=== PATIENT | female | born 1990 | race Hispanic/Latino ===

== ENCOUNTER 2021-12-20 18:18 | Emergency (ER) | payer BC ==
[2021-12-20] MEDS ORDERED: DOXYCYCLINE 100 MG CAP PO ONE (19:25)
--- NOTE | 2021-12-20 19:48 | ER ---
Nurse's Notes [facility] Name: Carlyn Rodas Age: 31 yrs Sex: Female : 1990 Arrival Date: 12/20/2021 Time: 18:22 Bed 12 Private MD: Diagnosis: Insect Bite - Cellulitis Presentation: 12/20 18:44 Chief complaint: Patient states: "I think I have several spider bites on Tuesday". pt aa5 c/o possible spider bite to left arm, right arm, and right leg. Coronavirus screen: At this time, the client does not indicate any symptoms associated with coronavirus-19. Ebola Screen: No symptoms or risks identified at this time. Initial Sepsis Screen: Does the patient meet any 2 criteria? No. Patient's initial sepsis screen is negative. Does the patient have a suspected source of infection? No. Patient's initial sepsis screen is negative. Risk Assessment: Do you want to hurt yourself or someone else? Patient reports no desire to harm self or others. Onset of symptoms was 2021. 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 - Social history:: Smoking status: Patient denies any tobacco usage or history of. Screenin:27 Abuse screen: Denies threats or abuse. Nutritional screening: No deficits noted. jb4 Tuberculosis screening: No symptoms or risk factors identified. Fall Risk None identified. Assessment: 19:27 General: Appears in no apparent distress. comfortable, Behavior is calm, cooperative, jb4 appropriate for age. Pain: Denies pain. Neuro: Level of Consciousness is awake, alert, obeys commands, Oriented to person, place, time, situation. Cardiovascular: Patient's skin is warm and dry. Respiratory: Airway is patent Respiratory effort is even, unlabored, Respiratory pattern is regular, symmetrical. GI: No signs and/or symptoms were reported involving the gastrointestinal system. : No signs and/or symptoms were reported regarding the genitourinary system. EENT: No signs and/or symptoms were reported regarding the EENT system. Derm: Skin is intact, Skin is pink, warm \\T\\ dry. Wound noted dorsal aspect of proximal phalanx of right little finger, palmar aspect of right forearm, left elbow and right Achilles. Musculoskeletal: Circulation, motion, and sensation intact. Range of motion: intact in all extremities. 19:58 Reassessment: Patient appears in no apparent distress at this time. Patient and/or jb4 family updated on plan of care and expected duration. Pain level reassessed. Patient is alert, oriented x 3, equal unlabored respirations, skin warm/dry/pink. Vital Signs: 18:44 BP 117 / 71; Pulse 83; Resp 18 S; Temp 98.0(O); Pulse Ox 100% on R/A; Weight 74.84 kg aa5 (R); Height 4 ft. 11 in. (149.86 cm) (R); 18:44 Body Mass Index 33.33 (74.84 kg, 149.86 cm) aa5 ED Course: 18:22 Patient arrived in ED. as 18:44 Arm band placed on. aa5 18:45 Triage completed. 5 18:54 Akira Clark PA is PHCP. [facility] 18:54 Jorge Carlton MD is Attending Physician. [facility] 19:25 Yordy Conde, RN is Primary Nurse. jb4 19:27 Patient has correct armband on for positive identification. Bed in low position. Call jb4 light in reach. Side rails up X 1. 19:59 No provider procedures requiring assistance completed. Patient did not have IV access jb4 during this emergency room visit. Administered Medications: 19:25 Drug: Doxycycline 100 mg Route: PO; jb4 19:58 Follow up: Response: No adverse reaction jb4 Outcome: 19:48 Discharge ordered by MD. [facility] 19:59 Discharged to home ambulatory. jb4 19:59 Condition: stable 19:59 Discharge instructions given to patient, Instructed on discharge instructions, follow up and referral plans. no drinking with medication, Demonstrated understanding of instructions, follow-up care, medications, Prescriptions given X 2. 19:59 Patient left the ED. jb Signatures: Akira Clark PA PA Carlotta Rodrigues Audri RN RN aa [place], Yordy, RN RN jb4
--- NOTE | 2021-12-20 19:49 | EDPHYS ---
Physician Documentation [facility] Name: Carlyn Rodas Age: 31 yrs Sex: Female : 1990 Arrival Date: 12/20/2021 Time: 18:22 Bed 12 Private MD: ED Physician Jorge Carlton HPI: 12/20 19:12 This 31 yrs old Female presents to ER via Ambulatory with complaints of Insect jmm Bite - spider. 19:12 Onset: The symptoms/episode began/occurred gradually. Possible cause(s): unknown. jmm Associated signs and symptoms: Pertinent negatives: fever. Modifying factors: the symptoms are alleviated by nothing, the symptoms are aggravated by nothing. patient complains of multiple bites to her right leg and both arms. Denies fever. Complains of pain. Denies purulent drainage. . 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 - Social history:: Smoking status: Patient denies any tobacco usage or history of. ROS: 19:12 Constitutional: Negative for fever, chills, and weight loss, Cardiovascular: Negative jmm for chest pain, palpitations, and edema, Respiratory: Negative for shortness of breath, cough, wheezing, and pleuritic chest pain. Exam: 21:32 Constitutional: This is a well developed, well nourished patient who is awake, alert, jmm and in no acute distress. Head/Face: atraumatic. Eyes: EOMI, no conjunctival erythema appreciated ENT: Moist Mucus Membranes Neck: Trachea midline, Supple Chest/axilla: Normal chest wall appearance and motion. Cardiovascular: Regular rate and rhythm. No edema appreciated Respiratory: Normal respirations, no respiratory distress appreciated Abdomen/GI: Non distended, soft Back: Normal ROM 21:32 MS/ Extremity: Moves all extremities, no obvious deformities appreciated, no edema noted to the lower extremities Neuro: Awake and alert Psych: Behavior is normal, Mood is normal, Patient is cooperative and pleasant 21:32 Skin: Bites noted to the left and right forearm, insect bite noted to the right lower extremity, not tender to palpation, nonfluctuant, no purulent drainage. Vital Signs: 18:44 BP 117 / 71; Pulse 83; Resp 18 S; Temp 98.0(O); Pulse Ox 100% on R/A; Weight 74.84 kg aa5 (R); Height 4 ft. 11 in. (149.86 cm) (R); 18:44 Body Mass Index 33.33 (74.84 kg, 149.86 cm) aa5 MDM: 19:12 Patient medically screened. [facility] 19:47 Data reviewed: vital signs, nurses notes. Counseling: I had a detailed discussion with [facility] the patient and/or guardian regarding: the historical points, exam findings, and any diagnostic results supporting the discharge/admit diagnosis, the need for outpatient follow up, to return to the emergency department if symptoms worsen or persist or if there are any questions or concerns that arise at home. ED course: Patient is alert and non toxic in appearance in the ED. Advised to follow up with pcp and otherwise given strict return precautions. Patient understood and agrees with the plan of care. . Administered Medications: 19:25 Drug: Doxycycline 100 mg Route: PO; jb 19:58 Follow up: Response: No adverse reaction [facility] Disposition Summary: 12/20/21 19:48 Discharge Ordered Location: Home [facility] Condition: Stable [facility] Diagnosis - Insect Bite - Cellulitis [facility] Followup: [facility] - With: Private Physician - When: 2 - 3 days - Reason: Recheck today's complaints, Continuance of care, Re-evaluation by your physician Discharge Instructions: - Discharge Summary Sheet [facility] - Insect Bite, Adult [facility] Forms: - Medication Reconciliation Form [facility] - Thank You Letter [facility] - Antibiotic Education [facility] - Prescription Opioid Use [facility] Prescriptions: - Hydroxyzine HCl 25 mg Oral Tablet - take 1 tablet by ORAL route every 6 hours As needed; 30 tablet; Refills: 0, [facility] Product Selection Permitted - Doxycycline Hyclate 100 mg Oral Tablet - take 1 tablet by ORAL route every 12 hours; 20 tablet; Refills: 0, Product [facility] Selection Permitted Signatures: Akira Clark PA PA jmm Calderon, Audri, RN RN aa5 Yordy Conde RN RN jb4
[2021-12-20 20:30] VITALS: BP 117/71; TEMP 98; O2SAT 100
== END 2021-12-20 19:59 | disposition home or self-care (01) ==
LOC: ER 18:18
DX: L03.115 Cellulitis of right lower limb (principal); S40.862A Insect bite (nonvenomous) of left upper arm, initial encounter; S40.861A Insect bite (nonvenomous) of right upper arm, initial encounter
CPT/HCPCS: 99283

== ENCOUNTER 2021-12-21 19:50 | Emergency (ER) | payer BC ==
[2021-12-21] MEDS ORDERED: ONDANSETRON 4 MG/2 ML VIAL ONE (21:12)
[2021-12-21] MEDS ORDERED: FAMOTIDINE 20 MG/2 ML VIAL IV ONE (21:12)
[2021-12-21] MEDS ORDERED: NA CHLORIDE 0.9% 1,000 ML ONE (21:12)
[2021-12-21 21:19] LABS: Urine Blood 3+ (Negative); Urine Glucose Negative (Negative); Urine Protein 1+ (Negative); Urine Specific Gravity >=1.030 (1.005-1.030)
[2021-12-21 21:30] LABS: Absolute Lymphocytes (CBC) 1.9 K/uL (0.7-4.9); Hematocrit 45.9 % (36.0-45.0); Lymphocytes % 17.5 % (15.3-44.8); MPV 7.5 fL (7.6-11.3); RBC Red Blood Cell Count 5.52 M/uL (3.86-4.86)
[2021-12-21 21:50] LABS: ALT/SGPT 26 U/L (12-78); AST/SGOT 12 U/L (15-37); Albumin 3.2 g/dL (3.4-5.0); Alkaline Phosphatase 96 U/L (45-117); BUN Blood Urea Nitrogen 11 mg/dL (7-18); Bicarbonate 27 mmol/L (21-32); Bilirubin Total 0.4 mg/dL (0.2-1.0); Glucose Level 109 mg/dL (74-106); Lipase 150 U/L (73-393); Potassium 4.2 mmol/L (3.5-5.1); Protein, Total 6.5 g/dL (6.4-8.2); Sodium Level 138 mmol/L (136-145)
[2021-12-21 22:05] LABS: SARS-COV-2 RT PCR NEGATIVE (NEGATIVE)
--- NOTE | 2021-12-21 23:35 | EDPHYS ---
Physician Documentation [facility] Name: Carlyn Rodas Age: 31 yrs Sex: Female : 1990 Arrival Date: 12/21/2021 Time: 19:51 Bed 16 Private MD: ED Physician Schuyler Barajas HPI: 12/21 20:41 This 31 yrs old Female presents to ER via Ambulatory with complaints of jmm Vomiting, Weakness. 20:41 The patient presents to the emergency department with nausea, vomiting, abdominal pain. jmm Onset: The symptoms/episode began/occurred acutely, today. Possible causes: unknown. The symptoms are aggravated by nothing. The symptoms are alleviated by nothing. Associated signs and symptoms: Pertinent positives: Headache. Historical: - Allergies: 20:17 No Known Allergies; al4 - Immunization history:: Adult Immunizations up to date. - Social history:: Smoking status: Patient denies any tobacco usage or history of. ROS: 20:41 Constitutional: Negative for fever, chills, and weight loss, Cardiovascular: Negative jmm for chest pain, palpitations, and edema, Respiratory: Negative for shortness of breath, cough, wheezing, and pleuritic chest pain. 20:41 Abdomen/GI: Positive for abdominal pain, nausea and vomiting. 20:41 Neuro: Positive for headache. 20:41 All other systems are negative. Exam: 20:41 Constitutional: This is a well developed, well nourished patient who is awake, alert, jmm and in no acute distress. Head/Face: atraumatic. Eyes: EOMI, no conjunctival erythema appreciated ENT: Moist Mucus Membranes Neck: Trachea midline, Supple Chest/axilla: Normal chest wall appearance and motion. Cardiovascular: Regular rate and rhythm. No edema appreciated Respiratory: Normal respirations, no respiratory distress appreciated 20:41 Back: Normal ROM Skin: General appearance color normal MS/ Extremity: Moves all extremities, no obvious deformities appreciated, no edema noted to the lower extremities Neuro: Awake and alert Psych: Behavior is normal, Mood is normal, Patient is cooperative and pleasant 20:41 Abdomen/GI: Inspection: abdomen appears normal, Bowel sounds: normal, Palpation: soft, mild abdominal tenderness, in all quadrants. Vital Signs: 20:11 BP 105 / 79; Pulse 77; Resp 18; Temp 98.4; Pulse Ox 99% ; Weight 78.93 kg; Height 4 ft. al4 11 in. (149.86 cm); Pain 6/10; 21:28 BP 119 / 70; Pulse 85; Resp 17; Pulse Ox 99% on R/A; ld1 22:47 BP 124 / 77; Pulse 81; Resp 18; Pulse Ox 99% on R/A; ld1 23:33 BP 131 / 70; Pulse 80; Resp 18; Pulse Ox 100% on R/A; ld1 20:11 Body Mass Index 35.14 (78.93 kg, 149.86 cm) al4 MDM: 20:41 Patient medically screened. kathy 23:33 Data reviewed: vital signs, nurses notes. Counseling: I had a detailed discussion with felicita the patient and/or guardian regarding: the historical points, exam findings, and any diagnostic results supporting the discharge/admit diagnosis, lab results, radiology results, the need for outpatient follow up, to return to the emergency department if symptoms worsen or persist or if there are any questions or concerns that arise at home. ED course: Patient is alert and nontoxic in appearance NAD. Imaging studies are negative. Patient states feeling much better. Patient understood agrees plan of care.. 12/21 21:03 Order name: CBC with Diff; Complete Time: 21:35 [facility] 12/21 21:03 Order name: CMP; Complete Time: 21:59 [facility] 12/21 21:03 Order name: Lipase; Complete Time: 21:59 [facility] 12/21 21:04 Order name: COVID-19/FLU A+B (Document "Date of Onset" if Symptomatic); Complete Time: [facility] 22:14 12/21 21:04 Order name: Strep; Complete Time: 21:46 [facility] 12/21 21:03 Order name: IV Saline Lock; Complete Time: 21:28 [facility] 12/21 21:05 Order name: CT Head Brain wo Cont [facility] 12/21 21:06 Order name: CT Abd/Pelvis - IV Contrast Only [facility] 12/21 21:19 Order name: Urine Dipstick-Ancillary; Complete Time: 21:22 [facility] 12/21 21:48 Order name: Throat Culture [facility] 12/21 21:03 Order name: Labs collected and sent; Complete Time: 21:28 [facility] 12/21 21:03 Order name: Urine Dipstick-Ancillary (obtain specimen); Complete Time: 21:19 [facility] 12/21 21:03 Order name: Urine Test (obtain specimen); Complete Time: 21:19 [facility] Administered Medications: 21: Drug: NS 0.9% 1000 ml Route: IV; Rate: 1 bolus; Site: right antecubital; ld1 21:28 Drug: Pepcid (famotidine) 20 mg Route: IVP; Site: right antecubital; ld1 21:28 Drug: Zofran (Ondansetron) 4 mg Route: IVP; Site: right antecubital; ld1 Disposition Summary: 12/21/21 23:34 Discharge Ordered Location: Home [facility] Condition: Stable [facility] Diagnosis - Vomiting jm - Abdominal pain, unspecified [facility] - Headache [facility] Followup: [facility] - With: Private Physician - When: 2 - 3 days - Reason: Recheck today's complaints, Continuance of care, Re-evaluation by your physician Followup: [facility] - With: Sim Grant MD - When: 2 - 3 days - Reason: Recheck today's complaints, Continuance of care, Re-evaluation by your physician Discharge Instructions: - Discharge Summary Sheet jmm - Abdominal Pain, Adult jmm - General Headache Without Cause jmm - Vomiting, Adult [facility] Forms: - Medication Reconciliation Form [facility] - Thank You Letter [facility] - Antibiotic Education [facility] - Prescription Opioid Use [facility] Prescriptions: - ondansetron 4 mg Oral tablet,disintegrating - place 1 tablet by TRANSLINGUAL route every 4-6 hours; 20 tablet; Refills: 0, [facility] Product Selection Permitted - Pepcid 20 mg Oral Tablet - take 1 tablet by ORAL route every 12 hours for 30 days; 60 tablet; Refills: 0, [facility] Product Selection Permitted Signatures: Dispatcher [employer] Schuyler Meraz MD MD cha Mickail, Joel, PA PA [facility] Beryl Vidal RN RN ld1 Nathen Nielsen4
--- NOTE | 2021-12-21 23:35 | ER ---
Nurse's Notes [facility] Name: Carlyn Rodas Age: 31 yrs Sex: Female : 1990 Arrival Date: 12/21/2021 Time: 19:51 Bed 16 Private MD: Diagnosis: Vomiting;Abdominal pain, unspecified;Headache Presentation: 12/21 20:11 Chief complaint: Patient states: fatigue and vomiting x 2 at 1400. denies fever, sob, al4 diarrhea. reports receiving 1 injection from [facility] that were sent by mother - doesn't know what it is or what its for. Coronavirus screen: Vaccine status: Patient reports receiving the 2nd dose of the covid vaccine. Ebola Screen: No symptoms or risks identified at this time. Initial Sepsis Screen: Does the patient meet any 2 criteria? No. Patient's initial sepsis screen is negative. Does the patient have a suspected source of infection? No. Patient's initial sepsis screen is negative. Risk Assessment: Do you want to hurt yourself or someone else? Patient reports no desire to harm self or others. Onset of symptoms was December 21, 2021. 20:11 Method Of Arrival: Ambulatory al4 20:11 Acuity: FERNANDO 3 al4 Triage Assessment: 20:17 General: Appears in no apparent distress. comfortable, Behavior is calm, cooperative. al4 Pain: Complains of pain in head Quality of pain is described as throbbing. Neuro: Level of Consciousness is awake, alert, obeys commands, Oriented to person, place, time, situation. Cardiovascular: Patient's skin is warm and dry. Respiratory: Airway is patent Respiratory effort is unlabored. GI: Reports nausea. Musculoskeletal: Circulation, motion, and sensation intact. Historical: - Allergies: 20:17 No Known Allergies; al4 - Immunization history:: Adult Immunizations up to date. - Social history:: Smoking status: Patient denies any tobacco usage or history of. Screenin:28 Abuse screen: Denies threats or abuse. Denies injuries from another. Nutritional ld1 screening: No deficits noted. Tuberculosis screening: No symptoms or risk factors identified. Fall Risk None identified. Assessment: 21:28 General: Appears in no apparent distress. comfortable, Behavior is calm, cooperative, ld1 appropriate for age. Pain: Complains of pain in abdomen Pain does not radiate. Pain currently is 8 out of 10 on a pain scale. Neuro: Level of Consciousness is awake, alert, obeys commands, Oriented to person, place, time, situation. Cardiovascular: Capillary refill < 3 seconds Patient's skin is warm and dry. Respiratory: Airway is patent Respiratory effort is even, unlabored. GI: Abdomen is round non-distended, Reports lower abdominal pain, upper abdominal pain, nausea. : No signs and/or symptoms were reported regarding the genitourinary system. EENT: No signs and/or symptoms were reported regarding the EENT system. Derm: No signs and/or symptoms reported regarding the dermatologic system. Musculoskeletal: No signs and/or symptoms reported regarding the musculoskeletal system. 22:47 Reassessment: Patient appears in no apparent distress at this time. No changes from ld1 previously documented assessment. Patient and/or family updated on plan of care and expected duration. Pain level reassessed. 23:33 Reassessment: Patient appears in no apparent distress at this time. Patient is alert, ld1 oriented x 3, equal unlabored respirations, skin warm/dry/pink. Vital Signs: 20:11 BP 105 / 79; Pulse 77; Resp 18; Temp 98.4; Pulse Ox 99% ; Weight 78.93 kg; Height 4 ft. al4 11 in. (149.86 cm); Pain 6/10; 21:28 BP 119 / 70; Pulse 85; Resp 17; Pulse Ox 99% on R/A; ld1 22:47 BP 124 / 77; Pulse 81; Resp 18; Pulse Ox 99% on R/A; ld1 23:33 BP 131 / 70; Pulse 80; Resp 18; Pulse Ox 100% on R/A; ld1 20:11 Body Mass Index 35.14 (78.93 kg, 149.86 cm) al4 ED Course: 19:51 Patient arrived in ED. jj6 20:17 Triage completed. al4 20:17 Arm band placed on right wrist. al4 20:34 Beryl Vidal, HERMILO is Primary Nurse. ld1 20:37 Akira Clark PA is PHCP. jm 20:37 Schuyler Barajas MD is Attending Physician. jm 21:19 COVID-19/FLU A+B (Document "Date of Onset" if Symptomatic) Sent. ld1 21:19 Strep Sent. ld1 21:28 Patient has correct armband on for positive identification. Placed in gown. Bed in low ld1 position. Call light in reach. Side rails up X2. manager monitoring on. Pulse ox on. NIBP on. Door closed. Noise minimized. Warm blanket given. 21:28 Strep Sent. ld1 21:28 COVID-19/FLU A+B (Document "Date of Onset" if Symptomatic) Sent. ld1 21:28 No provider procedures requiring assistance completed. Inserted saline lock: 20 gauge ld1 in right antecubital area, using aseptic technique. Blood collected. 22:39 CT Head Brain wo Cont In Process Unspecified. EDMS 22:39 CT Abd/Pelvis - IV Contrast Only In Process Unspecified. EDMS 23:40 Sim Grant MD is Referral Physician. m 23:48 IV discontinued, intact, bleeding controlled, No redness/swelling at site. ld1 Administered Medications: 21:28 Drug: NS 0.9% 1000 ml Route: IV; Rate: 1 bolus; Site: right antecubital; ld1 21:28 Drug: Pepcid (famotidine) 20 mg Route: IVP; Site: right antecubital; ld1 21:28 Drug: Zofran (Ondansetron) 4 mg Route: IVP; Site: right antecubital; ld1 Outcome: 23:34 Discharge ordered by . [facility] 23:48 Discharged to home ambulatory. ld1 23:48 Condition: stable 23:48 Discharge instructions given to patient, Instructed on discharge instructions, follow up and referral plans. medication usage, Demonstrated understanding of instructions, follow-up care, medications, Prescriptions given X 2. 23:48 Patient left the ED. ld1 Signatures: Dispatcher [employer] EDMS Akira Clark PA PA jmm Dibbern, Lauren, HERMILO RN ld1 Sherry Ty [email or web address] Nathen Nielsen
[2021-12-22 00:05] VITALS: TEMP 98.4
[2021-12-22 00:09] VITALS: BP 131/70; O2SAT 100
--- NOTE | 2021-12-22 20:16 | RAD REPORT ---
EXAM DESCRIPTION: CT HEAD WITHOUT IV CONTRAST CLINICAL HISTORY: Headache, sudden, severe. TECHNIQUE: Noncontrast CT through the head was performed. Axial, coronal, and sagittal reconstructio ns were created and sent to PACS. This exam was performed according to our departmental dose-optimiza tion program which includes use of Automated Exposure Control, adjustment of the mA and/or kV accordi ng to patient size and/or use of iterative reconstruction technique. COMPARISON: None. FINDINGS: The brain parenchyma appears unremarkable. There is no intra-axial or extra-axial bleed se en. There is no mass or mass effect. The ventricles are unremarkable. The orbital contents appear unr emarkable. The visualized paranasal sinuses and mastoid air cells are patent. No acute fracture is identified. IMPRESSION: No acute intracranial abnormality identified. Electronically signed by: Geovanna Azar MD 12/21/2021 10:51 PM CDT Due to temporary technical issues with the PACS/Fluency reporting system, reports are being signed by the in house radiologists without review as a courtesy to insure prompt reporting. The interpreting radiologist is fully responsible for the content of the report.
--- NOTE | 2021-12-22 20:18 | RAD REPORT ---
EXAM DESCRIPTION: Abdomen Pelvis W Contrast RadLex: CT ABDOMEN PELVIS WITH IV CONTRAST CLINICAL HISTORY: Epigastric pain. Fatigue and vomiting. COMPARISON: None. TECHNIQUE: CT of the abdomen and pelvis was performed following intravenous administration of iodina jeannie contrast. Arterial phase images through the abdomen, and portal venous phase images through the a bdomen and pelvis were obtained. Oral contrast was not administered. Axial, coronal, and sagittal sof t tissue window reconstructions were created and sent to PACS. This exam was performed according to our departmental dose-optimization program, which includes autom ated exposure control, adjustment of the mA and/or kV according to patient size and/or use of iterati ve reconstruction technique. FINDINGS: Thoracic: No significant abnormality. Hepatobiliary: No concerning hepatic lesion identified. The portal veins are patent. The gallbladder is unremarkable. No biliary ductal dilatation. Pancreas: Unremarkable. Spleen: Unremarkable. Gastrointestinal: No evidence of bowel obstruction or perienteric inflammation. The appendix is mary l. Adrenals: No abnormality identified in either adrenal gland. Renal: No concerning parenchymal abnormality in either kidney. No hydronephrosis or urolithiasis. Bladder/Reproductive: Unremarkable appearance of the urinary bladder by CT technique. Unremarkable CT appearance of the uterus and ovaries. Vascular/Lymphatics: No lymphadenopathy identified by CT size criteria. Abdominal aorta is normal in caliber. Musculoskeletal: No concerning osseous lesion identified. Fluid / peritoneum: No significant free fluid. No free intraperitoneal air identified. IMPRESSION No acute abnormality identified in the abdomen or pelvis by CT. Electronically signed by: Geovanna Azar MD 12/21/2021 10:55 PM CDT Due to temporary technical issues with the PACS/Fluency reporting system, reports are being signed by the in house radiologists without review as a courtesy to insure prompt reporting. The interpreting radiologist is fully responsible for the content of the report.
== END 2021-12-21 23:48 | disposition home or self-care (01) ==
LOC: ER 19:50
DX: R11.2 Nausea with vomiting, unspecified (principal); R10.9 Unspecified abdominal pain; R51.9 Headache, unspecified; Z20.822 Contact with and (suspected) exposure to COVID-19
CPT/HCPCS: 87070; 85025; 36415; 87081; 81003; 83690; 80053; 0240U; 70450; 74177; Q9967; J7030; J2405; J3490; 96374; 96375; 99284

== ENCOUNTER 2022-03-14 15:04 | Emergency (ER) | payer BC ==
[2022-03-14 16:20] LABS: Urine Blood 3+ (Negative); Urine Glucose Negative (Negative); Urine Protein 2+ (Negative); Urine Specific Gravity >=1.030 (1.005-1.030); Urine pH 6.5 (5.0-7.0)
[2022-03-14 16:38] LABS: Urine Bacteria >50 /HPF (<20); Urine RBC >50 /HPF (None Seen)
[2022-03-14] MEDS ORDERED: CEFTRIAXONE 1000 MG/VIAL ONE (18:15)
[2022-03-14] MEDS ORDERED: AZITHROMYCIN 250 MG TAB ONE (18:15)
[2022-03-14] MEDS ORDERED: WATER FOR INJ,STERILE 10 ML ONE (18:18)
--- NOTE | 2022-03-14 18:18 | ER ---
Nurse's Notes [facility] Name: Carlyn Rodas Age: 31 yrs Sex: Female : 1990 Arrival Date: 03/14/2022 Time: 15:05 Bed 8 Private MD: Diagnosis: UTI/ Urinary tract infection, site not specified Presentation: 03/14 15:30 Chief complaint: Patient states: she was treated for a bacteria in her vagina at a [address] patient states she was then placed on an antibiotic. patient states she completed the antibiotics. Patient then states she continued to have sex with her boyfriend after she completed the antibiotics, but now she reports having the same symptoms again. Patient reports having a throbbing feeling on the outside of her vagina, and is having a difficult time producing urine. Coronavirus screen: At this time, the client does not indicate any symptoms associated with coronavirus-19. Ebola Screen: No symptoms or risks identified at this time. Initial Sepsis Screen: Does the patient meet any 2 criteria? No. Patient's initial sepsis screen is negative. Does the patient have a suspected source of infection? No. Patient's initial sepsis screen is negative. Risk Assessment: Do you want to hurt yourself or someone else? Patient reports no desire to harm self or others. Onset of symptoms was March 14, 2022. 15:30 Method Of Arrival: Ambulatory ap3 15:30 Acuity: FERNANDO 3 ap3 Triage Assessment: 15:35 General: Appears uncomfortable, Behavior is calm, cooperative. Pain: Complains of pain ap3 in vaginal area Pain began gradually. Neuro: Level of Consciousness is awake, alert, obeys commands, Oriented to person, place, time, situation. Cardiovascular: Patient's skin is warm and dry. Respiratory: Airway is patent Respiratory effort is even, unlabored. : Reports inability to void, urgency. 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 - Social history:: Smoking status: Patient denies any tobacco usage or history of. Screenin:36 Abuse screen: Denies threats or abuse. Nutritional screening: No deficits noted. bm7 Tuberculosis screening: No symptoms or risk factors identified. Fall Risk None identified. Assessment: 16:36 Reassessment: Patient is alert, oriented x 3, equal unlabored respirations, skin bm7 warm/dry/pink. General: Appears in no apparent distress. comfortable, Behavior is calm, cooperative. Pain: Complains of pain in right lower quadrant and left lower quadrant Pain does not radiate. Pain currently is 2 out of 10 on a pain scale. Neuro: Level of Consciousness is awake, alert, obeys commands, Oriented to person, place, time, situation. Cardiovascular: No deficits noted. Respiratory: No deficits noted. GI: No signs and/or symptoms were reported involving the gastrointestinal system. : Genitalia appear normal Reports burning with urination, cramping, urgency, urinary frequency, pt states she has had one partner x 1 year. EENT: No deficits noted. No signs and/or symptoms were reported regarding the EENT system. Derm: No deficits noted. No signs and/or symptoms reported regarding the dermatologic system. Musculoskeletal: No deficits noted. No signs and/or symptoms reported regarding the musculoskeletal system. 17:17 Reassessment: Patient and/or family updated on plan of care and expected duration. Pain bm7 level reassessed. Patient is alert, oriented x 3, equal unlabored respirations, skin warm/dry/pink. Vital Signs: 15:30 BP 117 / 76; Pulse 86; Resp 17; Temp 97.2; Pulse Ox 100% ; Weight 78.93 kg; Height 4 ap3 ft. 11 in. (149.86 cm); Pain 7/10; 16:49 BP 120 / 77; Pulse 80; Resp 16; Pulse Ox 100% on R/A; bm7 18:18 BP 120 / 77; Pulse 78; Resp 16; Pulse Ox 99% on R/A; bm7 15:30 Body Mass Index 35.14 (78.93 kg, 149.86 cm) ap3 ED Course: 15:05 Patient arrived in ED. as 15:34 Triage completed. ap3 15:36 Arm band placed on left wrist. ap3 15:40 Akira Clark PA is PHCP. felicita 15:40 Tara Curiel is Attending Physician. felicita 16:13 Julieth Bird, RN is Primary Nurse. bm7 16:36 No apparent distress. Awaiting disposition. bm7 16:36 Patient has correct armband on for positive identification. Placed in gown. Bed in low bm7 position. Pulse ox on. NIBP on. Warm blanket given. Elevated pelvis. 16:36 Assist provider with pelvic exam: Set up pelvic tray. Performed by Akira SARABIA 7 Specimens sent to lab. Patient tolerated well. Wet prep swab sent to lab. 17:17 Awaiting: ultrasound. bm7 18:05 Transvaginal Study Probe In Process Unspecified. EDMS Administered Medications: 18:17 Drug: Rocephin (cefTRIAXone) 1 grams Route: IM; Site: right gluteus; bm7 18:33 Follow up: Response: No adverse reaction bm7 18:17 Drug: AZITHromycin 1 grams Route: PO; bm7 18:33 Follow up: Response: No adverse reaction bm7 Medication: 16:36 VIS not applicable for this client. bm7 Outcome: 18:17 Discharge ordered by . felicita 18:33 Patient left the ED. 7 Addendum: 03/17/2022 16:14 Addendum: Culture Results: Prescription called-in to pharmacy of choice. called in b d augmentin 875 to [facility]. spoke with pt. pt given result by Dr Barajas. Signatures: Dispatcher [employer] EDMS Shama Menchaca Joel, PA PA jmm Martinez, Amelia as Prokisch, Amanda RN RN ap3 Julieth Bird, RN RN 7
--- NOTE | 2022-03-14 18:18 | EDPHYS ---
Physician Documentation [facility] Name: Carlyn Rodas Age: 31 yrs Sex: Female : 1990 Arrival Date: 03/14/2022 Time: 15:05 Bed 8 Private MD: ED Physician Tara Curiel HPI: 03/14 16:21 This 31 yrs old Female presents to ER via Ambulatory with complaints of Pelvic jmm Pain, Urinary Problem, Skin Sore(s). 16:21 The patient presents with pelvic pain. Onset: The symptoms/episode began/occurred jmm gradually. Modifying factors: The symptoms are alleviated by nothing, the symptoms are aggravated by nothing. Associated signs and symptoms: Pertinent positives: dysuria. This is a 31-year-old female with no chronic medical conditions that presents to the emergency department with complaints of pelvic pain and fullness to her bladder region. Denies fever or chills. Patient was released recently diagnosed with bacterial vaginosis and finished a 7-day course of Flagyl denies fever or vomiting. Denies vaginal bleeding. 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 - Social history:: Smoking status: Patient denies any tobacco usage or history of. ROS: 16:21 Constitutional: Negative for fever, chills, and weight loss, Cardiovascular: Negative jmm for chest pain, palpitations, and edema, Respiratory: Negative for shortness of breath, cough, wheezing, and pleuritic chest pain. 16:21 : Positive for urinary symptoms, pelvic pain. 16:21 All other systems are negative. Exam: 16:21 Constitutional: This is a well developed, well nourished patient who is awake, alert, jmm and in no acute distress. Head/Face: atraumatic. Eyes: EOMI, no conjunctival erythema appreciated ENT: Moist Mucus Membranes Neck: Trachea midline, Supple Chest/axilla: Normal chest wall appearance and motion. Cardiovascular: Regular rate and rhythm. No edema appreciated Respiratory: Normal respirations, no respiratory distress appreciated Abdomen/GI: Non distended Back: Normal ROM Skin: General appearance color normal MS/ Extremity: Moves all extremities, no obvious deformities appreciated, no edema noted to the lower extremities Neuro: Awake and alert Psych: Behavior is normal, Mood is normal, Patient is cooperative and pleasant 16:21 : Pelvic Exam: External exam: is normal, Speculum exam: cervicitis present, bimanual exam reveals normal findings. Vital Signs: 15:30 BP 117 / 76; Pulse 86; Resp 17; Temp 97.2; Pulse Ox 100% ; Weight 78.93 kg; Height 4 ap3 ft. 11 in. (149.86 cm); Pain 7/10; 16:49 BP 120 / 77; Pulse 80; Resp 16; Pulse Ox 100% on R/A; bm7 18:18 BP 120 / 77; Pulse 78; Resp 16; Pulse Ox 99% on R/A; bm7 15:30 Body Mass Index 35.14 (78.93 kg, 149.86 cm) ap3 MDM: 16:28 Patient medically screened. [facility] 18:17 Data reviewed: vital signs, nurses notes. Counseling: I had a detailed discussion with felicita the patient and/or guardian regarding: the historical points, exam findings, and any diagnostic results supporting the discharge/admit diagnosis, lab results, the need for outpatient follow up, to return to the emergency department if symptoms worsen or persist or if there are any questions or concerns that arise at home. 03/14 16:20 Order name: Urine Microscopic Only; Complete Time: 16:41 [facility] 03/14 16:20 Order name: Urine Culture [facility] 03/14 16:20 Order name: Urine Dipstick-Ancillary; Complete Time: 16:41 EDMT 03/14 16:26 Order name: Urine --Ancillary (enter results); Complete Time: 16:43 eb 03/14 16:38 Order name: GC (GONORR/CHLAMYDIA) Probe [facility] 03/14 16:38 Order name: Wet Prep; Complete Time: 17:39 [facility] 03/14 18:05 Order name: Transvaginal Study Probe; Complete Time: 18:28 EDMS Administered Medications: 18:17 Drug: Rocephin (cefTRIAXone) 1 grams Route: IM; Site: right gluteus; 7 18:33 Follow up: Response: No adverse reaction bm7 18:17 Drug: AZITHromycin 1 grams Route: PO; bm7 18:33 Follow up: Response: No adverse reaction bm7 Disposition Summary: 03/14/22 18:17 Discharge Ordered Location: Home [facility] Condition: Stable [facility] Diagnosis - UTI/ Urinary tract infection, site not specified [facility] Followup: jmm - With: Private Physician - When: 2 - 3 days - Reason: Recheck today's complaints, Continuance of care, Re-evaluation by your physician Discharge Instructions: - Discharge Summary Sheet [facility] - Urinary Tract Infection, Adult [facility] Forms: - Medication Reconciliation Form [facility] - Thank You Letter [facility] - Antibiotic Education [facility] - Prescription Opioid Use [facility] Prescriptions: - Cephalexin 500 mg Oral Capsule - take 1 capsule by ORAL route every 8 hours for 10 days; 30 capsule; Refills: 0, [facility] Product Selection Permitted Signatures: Dispatcher [employer] EDMS Akira Clark PA PA jmm Prokisch, Amanda, RN RN ap3 Julieth Bird, RN RN bm7 Corrections: (The following items were deleted from the chart) 18:05 16:58 Pelvis Complete+[id number].BRZ ordered. EDMS EDMS
--- NOTE | 2022-03-14 18:27 | RAD REPORT ---
EXAM DESCRIPTION: US - Transvaginal Study Probe - 03/14/2022 6:04 pm CLINICAL HISTORY: pelvic pain Pelvic pain. COMPARISON: No comparisons FINDINGS: The uterus is normal in size, shape and echotexture. The uterus measures 6.7 cm in longest dimension The endometrial stripe measures 4 mm, normal. Both ovaries are normal in size, shape and echotexture. The right ovary measures 2.7 x 1.3 x 1.9 cm with volume of 3.6 cc. The left ovary measures 2.7 x 1.6 x 2.2 cm with volume of 5.1 cc. No ovarian or parovarian lesions. No adnexal masses. Normal Doppler blood flow was demonstrated to both ovaries. No significant pelvic ascites. IMPRESSION: Bilateral ovarian blood flow. No acute findings.
[2022-03-14 18:44] VITALS: TEMP 97.2
[2022-03-14 18:51] VITALS: BP 120/77
[2022-03-14 18:53] VITALS: O2SAT 99
== END 2022-03-14 18:33 | disposition home or self-care (01) ==
LOC: ER 15:04
DX: N39.0 Urinary tract infection, site not specified (principal)
CPT/HCPCS: 76830; 81003; 81015; 81025; 87077; 87086; 87088; 87186; 87210; 87490; 87590; 96372; 99284

== ENCOUNTER 2022-03-28 19:42 | Emergency (ER) | payer BC ==
--- OUTSIDE RECORDS SUMMARY | 2022-03-28 19:45 | XMS REPORT | Continuity of Care Document ---
:1990 Author Organization [facility] t Address [address] [place] [address] Dr. Goldman [address] [place] [address] Care Team Providers Name Role Phone Rey Le Primary Care Physician [phone] Problems This patient has no known problems. Allergies, Adverse Reactions, Alerts Allergy Allergy Status Severity Reaction(s) Onset Inactive Treating Comm ents Source Name Type Date Date Clinician Mesna - Propensi Active Intraven ty to 07 ous adverse 00:00: reaction 00 to drug Medications Ordered Filled Start Stop Current Ordering Indication Dosage Frequency Signature Comments Components Source Medication Medication Date Date Medication? Clinician (SIG) Name Name TAKE 1 0 No 20 TABLET BY 7-08 MOUTH EVERY 00:00: 12 HOURS 00 FOR 30 DAYS DISSOLVE 1 2021-0 No 4 TABLET IN 7-08 MOUTH EVERY 00:00: 4 TO 6 00 HOURS USE 2021-0 No DIRECTED 07 TWICE DAILY 00:00: TO AFFECTED 00 AREA ibuprofen 2021-0 No 1mg 600 mg 2-11 tablet 00:00: 00 diclofenac 2020-0 No 1mg sodium 75 7-28 mg 00:00: tablet,zeferino 00 yed release cyclobenzap 0 No 1mg rine 10 mg 7-28 tablet 00:00: 00 triamcinolo 2020-0 No 1% ne -17 acetonide 00:00: 0.1 % 00 topical ointment clotrimazol 2020-0 No 1% e 1 % -17 topical 00:00: cream 00 Macrobid 2020-0 No 1mg 100 mg 7-12 capsule 00:00: 00 Zyrtec 10 2020-0 No 1mg mg tablet 01-21 00:00: 00 Xulane 150 2021-0 No 1mcg/24 mcg-35 2-19 hr mcg/24 hr 00:00: transdermal 00 patch Flagyl 500 No 1mg mg tablet 1-20 00:00: 00 Macrobid No 1mg 100 mg 1-16 capsule 00:00: 00 Immunizations Ordered Immunization Filled Immunization Date Status Commen ts Source Name Name Red [place] 2021-01-01 Completed Vaccine 00:00:00 Red LA 2020-12-03 Completed Vaccine 00:00:00 Vital Signs Vital Name Observation Time Observation Value Comments Source BP Systolic 2022-02-25 16:00:00 109 mm[Hg] BP Diastolic 2022-02-25 16:00:00 61 mm[Hg] Weight Measured 2022-02-25 16:00:00 173.60 pounds Height Measured 2022-02-25 16:00:00 60.24 inches Body Temperature 2022-02-25 16:00:00 97.80 degrees Heart Rate 2022-02-25 16:00:00 90.00 /min Respiratory Rate 2022-02-25 16:00:00 25.00 /min BP Systolic 2021-10-02 14:03:00 105 mm[Hg] BP Diastolic 2021-10-02 14:03:00 69 mm[Hg] Weight Measured 2021-10-02 14:03:00 177.40 pounds Height Measured 2021-10-02 14:03:00 60.24 inches Body Temperature 2021-10-02 14:03:00 98.40 degrees Heart Rate 2021-10-02 14:03:00 93.00 /min Respiratory Rate 2021-10-02 14:03:00 Respiratory Rate 2021-03-26 16:20:00 BP Systolic 2021-03-26 16:20:00 107 mm[Hg] BP Diastolic 2021-03-26 16:20:00 64 mm[Hg] Weight Measured 2021-03-26 16:20:00 173.80 pounds Height Measured 2021-03-26 16:20:00 60.24 inches Body Temperature 2021-03-26 16:20:00 98.00 degrees Heart Rate 2021-03-26 16:20:00 83.00 /min BP Systolic 2021-03-18 14:18:00 130 mm[Hg] BP Diastolic 2021-03-18 14:18:00 83 mm[Hg] Weight Measured 2021-03-18 14:18:00 177.20 pounds Height Measured 2021-03-18 14:18:00 60.24 inches Body Temperature 2021-03-18 14:18:00 98.40 degrees Heart Rate 2021-03-18 14:18:00 41.00 /min Respiratory Rate 2021-03-18 14:18:00 16.00 /min BP Systolic 2021-03-16 11:05:00 111 mm[Hg] BP Diastolic 2021-03-16 11:05:00 68 mm[Hg] Weight Measured 2021-03-16 11:05:00 173.00 pounds Height Measured 2021-03-16 11:05:00 60.24 inches Body Temperature 2021-03-16 11:05:00 98.20 degrees Heart Rate 2021-03-16 11:05:00 84.00 /min Respiratory Rate 2021-03-16 11:05:00 BP Systolic 2021-03-07 14:23:00 105 mm[Hg] BP Diastolic 2021-03-07 14:23:00 70 mm[Hg] Weight Measured 2021-03-07 14:23:00 174.40 pounds Height Measured 2021-03-07 14:23:00 60.24 inches Body Temperature 2021-03-07 14:23:00 98.40 degrees Heart Rate 2021-03-07 14:23:00 93.00 /min Respiratory Rate 2021-03-07 14:23:00 BP Systolic 2021-03-02 15:03:00 137 mm[Hg] BP Diastolic 2021-03-02 15:03:00 79 mm[Hg] Weight Measured 2021-03-02 15:03:00 175.80 pounds Height Measured 2021-03-02 15:03:00 60.24 inches Body Temperature 2021-03-02 15:03:00 97.30 degrees Heart Rate 2021-03-02 15:03:00 103.00 /min Respiratory Rate 2021-03-02 15:03:00 21.00 /min Weight Measured 2021-01-21 09:09:00 186.60 pounds Height Measured 2021-01-21 09:09:00 60.24 inches Body Temperature 2021-01-21 09:09:00 98.90 degrees Heart Rate 2021-01-21 09:09:00 85.00 /min Respiratory Rate 2021-01-21 09:09:00 17.00 /min BP Systolic 2021-01-21 09:09:00 112 mm[Hg] BP Diastolic 2021-01-21 09:09:00 73 mm[Hg] BP Systolic 2020-10-10 09:45:00 119 mm[Hg] BP Diastolic 2020-10-10 09:45:00 83 mm[Hg] Weight Measured 2020-10-10 09:45:00 182.20 pounds Height Measured 2020-10-10 09:45:00 60.24 inches Body Temperature 2020-10-10 09:45:00 98.40 degrees Heart Rate 2020-10-10 09:45:00 77.00 /min Respiratory Rate 2020-10-10 09:45:00 16.00 /min BP Systolic 2020-09-27 09:54:00 111 mm[Hg] BP Diastolic 2020-09-27 09:54:00 63 mm[Hg] Weight Measured 2020-09-27 09:54:00 182.60 pounds Height Measured 2020-09-27 09:54:00 60.24 inches Body Temperature 2020-09-27 09:54:00 98.60 degrees Heart Rate 2020-09-27 09:54:00 79.00 /min Respiratory Rate 2020-09-27 09:54:00 17.00 /min Procedures This patient has no known procedures. Plan of Care Planned Activity Planned Date Details Comments Source Goal Plan of Care Note [code = 18318-9] Goal Plan of Care Note [code = 81127-3] Goal Plan of Care Note [code = 64196-2] Goal Plan of Care Note [code = 80498-8] Goal Plan of Care Note [code = 27118-6] Goal Plan of Care Note [code = 65542-5] Goal Plan of Care Note [code = 32826-9] Goal Plan of Care Note [code = 47515-5] Goal Plan of Care Note [code = 38755-1] Goal Plan of Care Note [code = 19302-8] Goal Plan of Care Note [code = 90284-9] Goal Plan of Care Note [code = 40066-7] Goal Plan of Care Note [code = 88709-7] Goal Plan of Care Note [code = 24561-3] Goal Plan of Care Note [code = 57398-9] Goal Plan of Care Note [code = 39578-7] Goal Plan of Care Note [code = 91331-7] Goal Plan of Care Note [code = 47859-2] Goal Plan of Care Note [code = 03509-3] Goal Plan of Care Note [code = 69614-0] Goal Plan of Care Note [code = 83002-2] Goal Plan of Care Note [code = 37016-4] Goal Plan of Care Note [code = 18322-0] Goal Plan of Care Note [code = 89998-2] Goal Plan of Care Note [code = 87888-2] Goal Plan of Care Note [code = 89332-0] Goal Plan of Care Note [code = 70022-4] Goal Plan of Care Note [code = 99092-5] Goal Plan of Care Note [code = 90224-6] Goal Plan of Care Note [code = 88332-9] Encounters Start End Encounter Admission Attending Care Care Encounter Source Date/Time Date/Time Type Type Clinicians Facility Department ID 2022-02-25 2022-02-25 Outpatient [id number] 00:00:00 00:00:00 Visit [id number] Results Test Description Test Time Test Comments Results Result Comments Source VAGINAL PATHOGENS DNA PANEL 2022-03-01 17:28:27 Test Item Value Reference Range Interpretation Comme nts BEATA SPECIES (test code = NEGATIVE NEGATIVE ) G. VAGINALIS (test code = POSITIVE NEGATIVE A ) T. VAGINALIS (test code = NEGATIVE NEGATIVE U NLESS OTHERWISE INDICATED, ALL ) TESTING PERFORM [facility] [address] [place] [address] LABOR[address]ORY DIRE CTOR: ASHLEY ZARAGOZA M.D. CLIA NUMBER [id number] [place] [id number] CULTURE, [id number] 11:55:32SPECIMEN NUMBER: [id number] CULTURE, URINE SPECIMEN NUMBER: [id number] SPECIMEN COMMENT: URINE SOURCE:URINE REPORT STATUS: FINAL FINAL REPORT: 02/28/2022 10-50,000 CFU/ML UROGENITAL TRENT PRESENT NO COMM ON PATHOGENSCHLAMYDIA, AMPLIFIED, [id number] 00:00:00 Test Item Value Reference Range Interpretation Comments CHLAMYDIA, NAAT (test code = 91927) NEGATIVE GC, AMPLIFIED, [id number] 00:00:00 Test Item Value Reference Range Interpretation Comments GONORRHEA, NAAT (test code = 67116) NEGATIVE HCG, [id number] 00:00:00 Test Item Value Reference Range Interpretation Comments HCG, QUANTITATIVE (test code = <5 MIU/ML 2506) HCG, [id number] 00:00:00 Test Item Value Reference Range Interpretation Comments HCG, QUANTITATIVE (test code = <5 MIU/ML 2506) HIV AB/AG COMBO RFLX [id number] 00:00:00 Test Item Value Reference Range Interpretation Comments HIV 1/2 4TH GEN, RFLX CONF (test NON-REACTIVE code = 3514) ACUTE HEPATITIS [id number] 00:00:00 Test Item Value Reference Range Interpretation Comments HEPATITIS A IgM (test code = NON-REACTIVE 93166) HEPATITIS B CORE IgM (test code NON-REACTIVE = 4644) HEPATITIS B SURF AG (test code = NON-REACTIVE 6289) HEPATITIS C ANTIBODY (test code NON-REACTIVE = 4675) INTERPRETATION HEPATITIS A: (NOTE) (test code = 2552) INTERPRETATION HEPATITIS B: (NOTE) (test code = 30135) INTERPRETATION HEPATITIS C: (NOTE) (test code = 84921) CHLAMYDIA, AMPLIFIED, [id number] 00:00:00 Test Item Value Reference Range Interpretation Comments CHLAMYDIA, NAAT (test code TEST NOT PERFORMED = 07676) GC, AMPLIFIED, [id number] 00:00:00 Test Item Value Reference Range Interpretation Comments GONORRHEA, NAAT (test code TEST NOT PERFORMED = 37366) [id number] 00:00:00 Test Item Value Reference Range Interpretation Comments RPR RESULT (test code = NON-REACTIVE 3501) RPR TITER (test code = 3500) NOT INDIC. TITER [id number] 00:00:00 Test Item Value Reference Range Interpretation Comments RPR RESULT (test code = NON-REACTIVE 3501) RPR TITER (test code = 3500) NOT INDIC. TITER CULTURE, [id number] 00:00:00 Test Item Value Reference Range Interpretation Comments CULTURE, URINE (test SPECIMEN NUMBER: code = 15411) [id number] CHLAMYDIA, AMPLIFIED, [id number] 00:00:00 Test Item Value Reference Range Interpretation Comments CHLAMYDIA, NAAT (test code = 39237) NEGATIVE GC, AMPLIFIED, [id number] 00:00:00 Test Item Value Reference Range Interpretation Comments GONORRHEA, NAAT (test code = 05583) NEGATIVE HIV AB/AG COMBO RFLX [id number] 00:00:00 Test Item Value Reference Range Interpretation Comments HIV 1/2 4TH GEN, RFLX CONF (test NON-REACTIVE code = 3514) [id number] 00:00:00 Test Item Value Reference Range Interpretation Comments RPR RESULT (test code = NON-REACTIVE 3501) RPR TITER (test code = 3500) NOT INDIC. TITER [id number] 00:00:00 Test Item Value Reference Range Interpretation Comments RPR RESULT (test code = NON-REACTIVE 3501) RPR TITER (test code = 3500) NOT INDIC. TITER VAGINAL PATHOGENS DNA [id number] 00:00:00 Test Item Value Reference Range Interpretation Comments BEATA SPECIES (test code = ) NEGATIVE G. VAGINALIS (test code = ) NEGATIVE T. VAGINALIS (test code = ) NEGATIVE COMPREHENSIVE METABOLIC [id number] 00:00:00 Test Item Value Reference Range Interpretation Comments GLUCOSE (test code = 2217) 94 MG/DL BUN (test code = 2208) 11 MG/DL CREATININE (test code = 2214) 0.63 MG/DL eGFR AMER. (test code 140 ML/MIN/1.73 = 44771) eGFR NON- AMER. (test 120 ML/MIN/1.73 code = 52183) CALC BUN/CREAT (test code = 17 RATIO 2235) SODIUM (test code = 2231) 138 MEQ/L POTASSIUM (test code = 2228) 4.4 MEQ/L CHLORIDE (test code = 2215) 102 MEQ/L CARBON DIOXIDE (test code = 25 MEQ/L 2205) CALCIUM (test code = 2209) 9.7 MG/DL PROTEIN, TOTAL (test code = 7.4 G/DL 2228) ALBUMIN (test code = 2201) 4.5 G/DL CALC GLOBULIN (test code = 2.9 G/DL 2239) CALC A/G RATIO (test code = 1.6 RATIO 2233) BILIRUBIN, TOTAL (test code = 0.3 MG/DL 2206) ALKALINE PHOSPHATASE (test 100 U/L code = 2204) AST (test code = 2218) 22 U/L ALT (test code = 2219) 30 U/L PAP TEST, THINPREP, [id number] 00:00:00 Test Item Value Reference Range Interpretation Comments SOURCE: (test code = Cervical/Endocervical 8001) SLIDES: (test code = 1 8011) LMP: (test code = 8021) 2020-09-03 SPECIMEN ADEQUACY: (NOTE) (test code = 34201) INTERPRETATION: (test NILM/NO EPITH. code = 36410) ABNORMALITY;SEE BELOW OTHER COMMENTS: (test (NOTE) code = 8081) C[employer]LEY WORKER: (test Katherin Ferrari, code = 8101) CT(ASCP)IAC LOCATION: (test code = (NOTE) 31640) CPT: (test code = 8140) (NOTE) HIV AB/AG COMBO RFLX [id number] 00:00:00 Test Item Value Reference Range Interpretation Comments HIV 1/2 4TH GEN, RFLX CONF (test NON-REACTIVE code = 3514) GC AND CHLAMYDIA AMPLIFIED, [id number] 00:00:00 Test Item Value Reference Range Interpretation Comments GONORRHEA, TMA (test code = 05138) NEGATIVE CHLAMYDIA, TMA (test code = 14976) NEGATIVE [id number] 00:00:00 Test Item Value Reference Range Interpretation Comments RPR RESULT (test code = NON-REACTIVE 3501) RPR TITER (test code = 3500) NOT INDIC. TITER [id number] 00:00:00 Test Item Value Reference Range Interpretation Comments RPR RESULT (test code = NON-REACTIVE 3501) RPR TITER (test code = 3500) NOT INDIC. TITER [id number] 00:00:00 Test Item Value Reference Range Interpretation Comments TESTOSTERONE (test code = 2830) 43 NG/DL HPV HIGH RISK WITH GENOTYPE, [id number] 00:00:00 Test Item Value Reference Range Interpretation Comments HPV HIGH RISK INTERP (test code = NEGATIVE 42853) HPV 16 (test code = 83082) NEGATIVE HPV 18 (test code = 92339) NEGATIVE HPV, HR, OTHER GENOTYPES (test code NEGATIVE = 03453) FSH + LH [id number] 00:00:00 Test Item Value Reference Range Interpretation Comments FOLLICLE STIM HORMONE (test code = 7.0 IU/L 2700) LUTEINIZING HORMONE (test code = 12.1 IU/L 2776) [id number] 00:00:00 Test Item Value Reference Range Interpretation Comments PROLACTIN (test code = 2800) 12.5 NG/ML [id number] 00:00:00 Test Item Value Reference Range Interpretation Comments ESTRADIOL (test code = 2505) 39.3 PG/ML [id number] 00:00:00 Test Item Value Reference Range Interpretation Comments ESTRADIOL (test code = 2505) 39.3 PG/ML VAGINAL PATHOGENS DNA [id number] 00:00:00 Test Item Value Reference Range Interpretation Comments BEATA SPECIES (test code = ) NEGATIVE G. VAGINALIS (test code = ) NEGATIVE T. VAGINALIS (test code = ) POSITIVE
[2022-03-28 20:45] LABS: Urine Blood Negative (Negative); Urine Glucose Negative (Negative); Urine Protein Negative (Negative); Urine Specific Gravity >=1.030 (1.005-1.030)
[2022-03-28] MEDS ORDERED: IBUPROFEN 400 MG TAB ONE (21:01)
--- NOTE | 2022-03-28 21:59 | RAD REPORT ---
EXAM DESCRIPTION: RAD - Knee Left 3 View - 03/28/2022 9:49 pm CLINICAL HISTORY: Left knee pain FINDINGS: No fracture or dislocation is seen. No bone or joint abnormality noted
--- NOTE | 2022-03-28 22:17 | ER ---
Nurse's Notes [facility] Name: Carlyn Rodas Age: 31 yrs Sex: Female : 1990 Arrival Date: 03/28/2022 Time: 19:44 Bed 7 Private MD: Diagnosis: Pain in left knee;Plantar fasciitis;Insect bite (nonvenomous) of foot Presentation: 03/28 20:06 Chief complaint: Patient states: insect bites to top of right foot. extreme bilateral lg3 foot pain for a few weeks now. they both throb and tingle all the time. Coronavirus screen: Client denies travel out of the [place] in the last 14 days. At this time, the client does not indicate any symptoms associated with coronavirus-19. Ebola Screen: No symptoms or risks identified at this time. Initial Sepsis Screen: Does the patient meet any 2 criteria? No. Patient's initial sepsis screen is negative. Does the patient have a suspected source of infection? No. Patient's initial sepsis screen is negative. Risk Assessment: Do you want to hurt yourself or someone else? Patient reports no desire to harm self or others. Onset of symptoms is unknown. 20:06 Method Of Arrival: Ambulatory lg3 20:06 Acuity: FERNANDO 3 lg3 Triage Assessment: 20:07 General: Appears in no apparent distress. comfortable, Behavior is calm, cooperative. lg3 Pain: Complains of pain in right foot and left foot Quality of pain is described as aching, crampy, tingling, throbbing. EENT: No deficits noted. No signs and/or symptoms were reported regarding the EENT system. Neuro: No deficits noted. Level of Consciousness is awake, alert, obeys commands, Oriented to person, place, time, situation. Cardiovascular: No deficits noted. Denies chest pain, shortness of breath, Capillary refill < 3 seconds Clubbing of nail beds is absent JVD is absent Patient's skin is warm and dry. Respiratory: No deficits noted. Airway is patent Trachea midline Respiratory effort is even, unlabored, Respiratory pattern is regular, symmetrical. GI: No deficits noted. No signs and/or symptoms were reported involving the gastrointestinal system. Abdomen is round non-distended. : No deficits noted. No signs and/or symptoms were reported regarding the genitourinary system. Derm: insect bites noted to top of right foot. Musculoskeletal: No deficits noted. Circulation, motion, and sensation intact. Range of motion: intact in all extremities. 22:21 Bite description:. kl 22:29 Bite description: by insect. kl 22:30 Bite description: bite sustained to left foot and right foot. kl 22:31 Bite description: animal information: vaccination(s) is not applicable. 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 - Social history:: Smoking status: Patient denies any tobacco usage or history of. Patient/guardian denies using alcohol, street drugs. Screenin:10 Abuse screen: Denies threats or abuse. Denies injuries from another. Nutritional lg3 screening: No deficits noted. Tuberculosis screening: No symptoms or risk factors identified. Fall Risk None identified. Assessment: 20:46 General: Appears uncomfortable, Behavior is calm, cooperative. Pain: Complains of pain ll3 in left foot and right foot Pain currently is 3 out of 10 on a pain scale. at worst was 10 out of 10 on a pain scale. Pain began A while ago Is continuous, Alleviated by rest, Aggravated by increased activity, weight bearing. Neuro: Level of Consciousness is awake, alert, obeys commands, Oriented to person, place, time, situation. Derm: Skin is intact, Skin is pink, warm \T\ dry. Musculoskeletal: Circulation, motion, and sensation intact. 21:39 Reassessment: No changes from previously documented assessment. Patient and/or family ll3 updated on plan of care and expected duration. Pain level reassessed. Patient is alert, oriented x 3, equal unlabored respirations, skin warm/dry/pink. Vital Signs: 20:06 Weight 74.84 kg; Height 4 ft. 11 in. (149.86 cm); Pain 8/10; lg3 20:13 BP 111 / 71; Pulse 74; Resp 17 S; Temp 98.4(O); Pulse Ox 98% on R/A; lg3 21:39 BP 109 / 78; Pulse 63; Resp 16; Pulse Ox 100% on R/A; ll3 22:29 BP 103 / 62; Pulse 79; Resp 18; Pulse Ox 99% ; Pain 2/10; kl 20:06 Body Mass Index 33.33 (74.84 kg, 149.86 cm) lg3 ED Course: 19:44 Patient arrived in ED. bp1 20:04 Asaf Canas MD is Attending Physician. 7 20:07 Triage completed. lg3 20:07 Arm band placed on right wrist. lg3 20:46 Naa Mills, RN is Primary Nurse. ll3 21:50 Knee Left 3 View XRAY In Process Unspecified. EDKS 22:20 Amador Padilla MD is Referral Physician. 7 22:20 Vincenzo Padilla MD is Referral Physician. [facility] 22:21 No provider procedures requiring assistance completed. Patient did not have IV access kl during this emergency room visit. 22:30 Patient has correct armband on for positive identification. kl Administered Medications: 20:55 Drug: Ibuprofen 800 mg Route: PO; ll3 22:29 Follow up: Response: No adverse reaction; Marked relief of symptoms Medication: 22:30 VIS not applicable for this client. Point of Care Testing: Blood Glucose: 22:11 Blood Glucose: 105 mg/dL; ll3 Ranges: Outcome: 22:17 Discharge ordered by . [facility] 22:20 Discharged to home ambulatory. 22:20 Condition: good 22:20 Discharge instructions given to patient, Instructed on discharge instructions, follow up and referral plans. medication usage, Demonstrated understanding of instructions, follow-up care, medications, Prescriptions given X 2. 22:31 Patient left the ED. Signatures: Dispatcher [employer] EDMS Bailey Atkinson RN RN Alana Park RN RN 3 Julieth Quiros bp1 Asaf Canas MD MD [facility] Naa Mills RN RN 3
--- NOTE | 2022-03-28 22:17 | EDPHYS ---
Physician Documentation [facility] Name: Carlyn Rodas Age: 31 yrs Sex: Female : 1990 Arrival Date: 03/28/2022 Time: 19:44 Bed 7 Private MD: ED Physician Asaf Canas HPI: 03/28 20:23 This 31 yrs old Female presents to ER via Ambulatory with complaints of Foot mh7 Pain, Insect Bite, Knee Pain, - LT. 20:23 The patient presents with pain, that is chronic. The complaints affect the left knee, mh7 plantar aspect of both feet. Context: The problem was sustained at an unknown site, resulted from Standing for long periods of time at work, the patient can fully bear weight, the patient is able to ambulate, without difficulty, Problem is a result from a previous injury: No. Onset: The symptoms/episode began/occurred 2 month(s) ago. Modifying factors: The symptoms are alleviated by remaining still, the symptoms are aggravated by weight bearing. Associated signs and symptoms: Pertinent negatives calf tenderness, fever, nausea, numbness, rash, swelling, tingling, vomiting, warmth, weakness. Treatment prior to arrival includes: no previous treatment. Severity of symptoms: At their worst the symptoms were moderate, 1 month ago, in the emergency department the symptoms have improved, moderately. Also states that she has some small insect bites on the top of her right foot. She has not tried any medication or seen a doctor about any of her symptoms.. 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 - Social history:: Smoking status: Patient denies any tobacco usage or history of. Patient/guardian denies using alcohol, street drugs. ROS: 20:23 Constitutional: Negative for fever, chills, and weight loss, Eyes: Negative for injury, mh7 pain, redness, and discharge, ENT: Negative for injury, pain, and discharge, Neck: Negative for injury, pain, and swelling, Cardiovascular: Negative for chest pain, palpitations, and edema, Respiratory: Negative for shortness of breath, cough, wheezing, and pleuritic chest pain, Abdomen/GI: Negative for abdominal pain, nausea, vomiting, diarrhea, and constipation, Back: Negative for injury and pain, : Negative for injury, bleeding, discharge, and swelling, Neuro: Negative for headache, weakness, numbness, tingling, and seizure, Psych: Negative for depression, anxiety, suicide ideation, homicidal ideation, and hallucinations, Endocrine: Negative for neck swelling, polydipsia, polyuria, polyphagia, and marked weight changes, Hematologic/Lymphatic: Negative for swollen nodes, abnormal bleeding, and unusual bruising. Exam: 20:23 Constitutional: This is a well developed, well nourished patient who is awake, alert, mh7 and in no acute distress. Head/Face: Normocephalic, atraumatic. Eyes: Pupils equal round and reactive to light, extra-ocular motions intact. Lids and lashes normal. Conjunctiva and sclera are non-icteric and not injected. Cornea within normal limits. Periorbital areas with no swelling, redness, or edema. Neck: Trachea midline, no thyromegaly or masses palpated, and no cervical lymphadenopathy. Supple, full range of motion without nuchal rigidity, or vertebral point tenderness. No Meningismus. Chest/axilla: Normal chest wall appearance and motion. Nontender with no deformity. No lesions are appreciated. Cardiovascular: Regular rate and rhythm with a normal S1 and S2. No gallops, murmurs, or rubs. Normal PMI, no JVD. No pulse deficits. Respiratory: Lungs have equal breath sounds bilaterally, clear to auscultation and percussion. No rales, rhonchi or wheezes noted. No increased work of breathing, no retractions or nasal flaring. Abdomen/GI: Soft, non-tender, with normal bowel sounds. No distension or tympany. No guarding or rebound. No evidence of tenderness throughout. Back: No spinal tenderness. No costovertebral tenderness. Full range of motion. Neuro: Awake and alert, GCS 15, oriented to person, place, time, and situation. Cranial nerves II-XII grossly intact. Motor strength 5/5 in all extremities. Sensory grossly intact. Cerebellar exam normal. Normal gait. Psych: Awake, alert, with orientation to person, place and time. Behavior, mood, and affect are within normal limits. 20:23 Musculoskeletal/extremity: Extremities: noted in the left knee: pain, noted in the left mh7 foot and right foot plantar aspect: pain, tenderness, ROM: intact in all extremities, Circulation is intact in all extremities. Sensation intact. Compartment Syndrome exam of affected extremity: is normal. no numbness, no tingling, no sensation deficit, no palor, no weak pulses, Joints: the left knee displays painful range of motion, Weight bearing: able to fully bear weight, without difficulty, Tendon exam: specific tendon testing normal through active and passive range of motion Vital Signs: 20:06 Weight 74.84 kg; Height 4 ft. 11 in. (149.86 cm); Pain 8/10; lg3 20:13 BP 111 / 71; Pulse 74; Resp 17 S; Temp 98.4(O); Pulse Ox 98% on R/A; lg3 21:39 BP 109 / 78; Pulse 63; Resp 16; Pulse Ox 100% on R/A; ll3 22:29 BP 103 / 62; Pulse 79; Resp 18; Pulse Ox 99% ; Pain 2/10; kl 20:06 Body Mass Index 33.33 (74.84 kg, 149.86 cm) lg3 MDM: 22:13 Differential diagnosis: closed fracture, tendonitis, knee pain, plantar fasciitis, mh7 insect bite, nonspecific rash. Data reviewed: vital signs, nurses notes, lab test result(s), UPT: negative radiologic studies, plain films. Data reviewed: lab test result(s), finger stick glucose. Data interpreted: Pulse oximetry: on room air is 100 %. Interpretation: normal. Counseling: I had a detailed discussion with the patient and/or guardian regarding: the historical points, exam findings, and any diagnostic results supporting the discharge/admit diagnosis, lab results, radiology results, the need for outpatient follow up, a orthopedic surgeon, to return to the emergency department if symptoms worsen or persist or if there are any questions or concerns that arise at home. Response to treatment: the patient's symptoms have markedly improved after treatment. 22:17 Patient medically screened. [facility] 03/28 20:45 Order name: Urine Dipstick-Ancillary; Complete Time: 22:02 [facility] 03/28 20:46 Order name: Urine --Ancillary (enter results); Complete Time: 22:19 3 03/28 20:22 Order name: Knee Left 3 View XRAY; Complete Time: 22:02 [facility] 03/28 20:22 Order name: Urine Test (obtain specimen); Complete Time: 20:46 [facility] 03/28 22:22 Order name: Glucose, Ancillary Testing [facility] 03/28 22:06 Order name: Accucheck Blood Glucose; Complete Time: 22:12 [facility] Administered Medications: 20:55 Drug: Ibuprofen 800 mg Route: PO; ll3 22:29 Follow up: Response: No adverse reaction; Marked relief of symptoms kl Point of Care Testing: Blood Glucose: 22:11 Blood Glucose: 105 mg/dL; ll3 Ranges: Critical Glucose Levels:Adult <50 mg/dl or >400 mg/dl <40 mg/dl or >180 mg/dl Disposition Summary: 03/28/22 22:17 Discharge Ordered Location: Home [facility] Problem: an ongoing problem [facility] Symptoms: have improved [facility] Condition: Stable [facility] Diagnosis - Pain in left knee [facility] - Plantar fasciitis [facility] - Insect bite (nonvenomous) of foot [facility] Followup: [facility] - With: Private Physician - When: 1 - 2 days - Reason: Worsening of condition, Recheck today's complaints, Continuance of care, Re-evaluation by your physician Followup: [facility] - With: Amador Padilla MD - When: 5 - 6 days - Reason: Worsening of condition, Recheck today's complaints Followup: [facility] - With: Vincenzo Padilla MD - When: 2 - 3 days - Reason: Worsening of condition, Recheck today's complaints Discharge Instructions: - Discharge Summary Sheet [facility] - Insect Bite, Adult, Xspr-jn-Hjmy [facility] - Plantar Fasciitis [facility] - Joint Pain, Osfz-zy-Awca [facility] - Chronic Knee Pain, Adult, Bfld-pp-Itgu [facility] Forms: - Medication Reconciliation Form [facility] - Thank You Letter [facility] - Antibiotic Education [facility] - Prescription Opioid Use [facility] Prescriptions: - bacitracin - Apply to affected area 1 application by TOPICAL route 2 times per day for 7 [facility] days; 1 tube; Refills: 0, Product Selection Permitted - Ibuprofen 800 mg Oral Tablet - take 1 tablet by ORAL route every 8 hours As needed take with food; 15 tablet; 7 Refills: 0, Product Selection Permitted Signatures: Dispatcher [employer] Alana Perez RN RN lg3 Asaf Canas MD MD 7 Naa Mills RN RN ll3 Bailey Atkinson RN kl
[2022-03-28 23:38] VITALS: TEMP 98.4
[2022-03-28 23:42] VITALS: BP 103/62; O2SAT 99
== END 2022-03-28 22:31 | disposition home or self-care (01) ==
LOC: ER 19:42
DX: M25.562 Pain in left knee (principal); M72.2 Plantar fascial fibromatosis; S90.862A Insect bite (nonvenomous), left foot, initial encounter
CPT/HCPCS: 81003; 81025; 82947; 99283

== ENCOUNTER 2022-03-29 20:53 | Emergency (ER) | payer BC ==
--- OUTSIDE RECORDS SUMMARY | 2022-03-29 20:56 | XMS REPORT | Continuity of Care Document ---
:1990 Author Organization [facility] t Address [address] [place] [address] [address] [place] [address] Care Team Providers Name Role Phone Rey Le Primary Care Physician [phone] Problems This patient has no known problems. [...] 6 00 HOURS USE 2021-0 No DIRECTED -07 TWICE DAILY 00:00: TO AFFECTED 00 AREA [...] Goal Plan of Care Note [code = 07559-4] Goal Plan of Care Note [code = 79216-2] Goal Plan of Care Note [code = 68021-3] Goal Plan of Care Note [code = 74942-5] Goal Plan of Care Note [code = 66666-5] Goal Plan of Care Note [code = 16061-8] Goal Plan of Care Note [code = 37212-8] Goal Plan of Care Note [code = 11324-4] Goal Plan of Care Note [code = 33448-6] Goal Plan of Care Note [code = 94581-9] Goal Plan of Care Note [code = 42526-9] Goal Plan of Care Note [code = 06211-8] Goal Plan of Care Note [code = 35535-4] Goal Plan of Care Note [code = 36720-2] Goal Plan of Care Note [code = 89542-9] Goal Plan of Care Note [code = 64265-8] Goal Plan of Care Note [code = 96639-3] Goal Plan of Care Note [code = 16485-2] Goal Plan of Care Note [code = 81759-7] Goal Plan of Care Note [code = 79278-9] Goal Plan of Care Note [code = 60572-8] Goal Plan of Care Note [code = 71220-3] Goal Plan of Care Note [code = 19991-0] Goal Plan of Care Note [code = 88556-2] Goal Plan of Care Note [code = 11543-1] Goal Plan of Care Note [code = 73006-7] Goal Plan of Care Note [code = 54272-3] Goal Plan of Care Note [code = 71821-8] Goal Plan of Care Note [code = 36200-1] Goal Plan of Care Note [code = 27338-1] Encounters Start End Encounter Admission Attending Care Care Encounter Source Date/Time Date/Time Type Type Clinicians Facility Department ID 2022-02-25 2022-02-25 Outpatient [id number] 00:00:00 00:00:00 Visit [id number] Results Test Description Test Time Test [...] [facility] [address] [place] [address] LABORATORY DIRE CTOR: ASHLEY ZARAGOZA M.D. CLIA NUMBER [id number] [place] [id number] CULTURE, [id number] 11:55:32SPECIMEN NUMBER: [id number] CULTURE, URINE SPECIMEN NUMBER: [id number] SPECIMEN COMMENT: URINE SOURCE:URINE REPORT STATUS: FINAL FINAL REPORT: 02/28/2022 10-50,000 CFU/ML UROGENITAL TRENT PRESENT NO COMM ON PATHOGENSCHLAMYDIA, AMPLIFIED, [id number] 00:00:00 Test Item Value Reference Range Interpretation Comments CHLAMYDIA, NAAT (test code = 56979) NEGATIVE GC, AMPLIFIED, [id number] 00:00:00 Test Item Value Reference Range Interpretation Comments GONORRHEA, NAAT (test code = 96597) NEGATIVE HCG, [id number] 00:00:00 Test Item Value Reference Range Interpretation Comments HCG, QUANTITATIVE (test code = <5 MIU/ML 2506) HCG, [id number] 00:00:00 Test Item Value Reference Range Interpretation Comments HCG, QUANTITATIVE (test code = <5 MIU/ML 2506) HIV AB/AG COMBO RFLX [id number] 00:00:00 Test Item Value Reference Range Interpretation Comments HIV 1/2 4TH GEN, RFLX CONF (test NON-REACTIVE code = 3514) ACUTE HEPATITIS [id number] 00:00:00 Test Item Value Reference Range Interpretation Comments HEPATITIS A IgM (test code = NON-REACTIVE 99279) HEPATITIS B CORE IgM (test code NON-REACTIVE = 4644) HEPATITIS B SURF AG (test code = NON-REACTIVE 8329) HEPATITIS C ANTIBODY (test code NON-REACTIVE = 4675) INTERPRETATION HEPATITIS A: (NOTE) (test code = 2552) INTERPRETATION HEPATITIS B: (NOTE) (test code = 49670) INTERPRETATION HEPATITIS C: (NOTE) (test code = 08582) CHLAMYDIA, AMPLIFIED, [id number] 00:00:00 Test Item Value Reference Range Interpretation Comments CHLAMYDIA, NAAT (test code TEST NOT PERFORMED = 18569) GC, AMPLIFIED, [id number] 00:00:00 Test Item Value Reference Range Interpretation Comments GONORRHEA, NAAT (test code TEST NOT PERFORMED = 94049) [id number] 00:00:00 Test Item Value Reference Range Interpretation Comments RPR RESULT (test code = NON-REACTIVE 3501) RPR TITER (test code = 3500) NOT INDIC. TITER [id number] 00:00:00 Test Item Value Reference Range Interpretation Comments RPR RESULT (test code = NON-REACTIVE 3501) RPR TITER (test code = 3500) NOT INDIC. TITER CULTURE, [id number] 00:00:00 Test Item Value Reference Range Interpretation Comments CULTURE, URINE (test SPECIMEN NUMBER: code = 86470) [id number] CHLAMYDIA, AMPLIFIED, [id number] 00:00:00 Test Item Value Reference Range Interpretation Comments CHLAMYDIA, NAAT (test code = 32277) NEGATIVE GC, AMPLIFIED, [id number] 00:00:00 Test Item Value Reference Range Interpretation Comments GONORRHEA, NAAT (test code = 12750) NEGATIVE HIV AB/AG COMBO RFLX [id number] 00:00:00 Test Item Value Reference Range Interpretation Comments HIV 1/2 4TH GEN, RFLX CONF (test NON-REACTIVE code = 3514) [id number] 00:00:00 Test Item Value Reference Range Interpretation Comments RPR RESULT (test code = NON-REACTIVE 3501) RPR TITER (test code = 3500) NOT INDIC. TITER [id number] 00:00:00 Test Item Value Reference Range Interpretation Comments RPR RESULT (test code = NON-REACTIVE 3501) RPR TITER (test code = 3500) NOT INDIC. TITER VAGINAL PATHOGENS DNA [id number] 00:00:00 Test Item Value Reference Range Interpretation Comments BEATA SPECIES (test code = ) NEGATIVE G. VAGINALIS (test code = ) NEGATIVE T. VAGINALIS (test code = ) NEGATIVE COMPREHENSIVE METABOLIC [id number] 00:00:00 Test Item Value Reference Range Interpretation Comments GLUCOSE (test code = 2217) 94 MG/DL BUN (test code = 2208) 11 MG/DL CREATININE (test code = 2214) 0.63 MG/DL eGFR AMER. (test code 140 ML/MIN/1.73 = 30498) eGFR NON- AMER. (test 120 ML/MIN/1.73 code = 08622) CALC BUN/CREAT (test code = 17 RATIO [...] = 2219) 30 U/L PAP TEST, THINPREP, [id number] 00:00:00 Test Item Value Reference Range Interpretation Comments SOURCE: (test code = Cervical/Endocervical 8001) SLIDES: (test code = 1 8011) LMP: (test code = 8021) 2020-09-03 SPECIMEN ADEQUACY: (NOTE) (test code = 57307) INTERPRETATION: (test NILM/NO EPITH. code = 29214) ABNORMALITY;SEE BELOW OTHER COMMENTS: (test (NOTE) code = 8081) COIL FINISHER: (test Katherin Ferrari, code = 8101) CT(ASCP)IAC LOCATION: (test code = (NOTE) 25226) CPT: (test code = 8140) (NOTE) HIV AB/AG COMBO RFLX [id number] 00:00:00 Test Item Value Reference Range Interpretation Comments HIV 1/2 4TH GEN, RFLX CONF (test NON-REACTIVE code = 3514) GC AND CHLAMYDIA AMPLIFIED, [id number] 00:00:00 Test Item Value Reference Range Interpretation Comments GONORRHEA, TMA (test code = 61284) NEGATIVE CHLAMYDIA, TMA (test code = 07064) NEGATIVE [id number] 00:00:00 Test Item Value Reference Range Interpretation Comments RPR RESULT (test code = NON-REACTIVE 3501) RPR TITER (test code = 3500) NOT INDIC. TITER [id number] 00:00:00 Test Item Value Reference Range Interpretation Comments RPR RESULT (test code = NON-REACTIVE 3501) RPR TITER (test code = 3500) NOT INDIC. TITER [id number] 00:00:00 Test Item Value Reference Range Interpretation Comments TESTOSTERONE (test code = 2830) 43 NG/DL HPV HIGH RISK WITH GENOTYPE, [id number] 00:00:00 Test Item Value Reference Range Interpretation Comments HPV HIGH RISK INTERP (test code = NEGATIVE 43014) HPV 16 (test code = 97535) NEGATIVE HPV 18 (test code = 76990) NEGATIVE HPV, HR, OTHER GENOTYPES (test code NEGATIVE = 94751) FSH + LH [id number] 00:00:00 Test Item Value Reference Range Interpretation Comments FOLLICLE STIM HORMONE (test code = 7.0 IU/L 2700) LUTEINIZING HORMONE (test code = 12.1 IU/L 2776) [id number] 00:00:00 Test Item Value Reference Range Interpretation Comments PROLACTIN (test code = 2800) 12.5 NG/ML [id number] 00:00:00 Test Item Value Reference Range Interpretation Comments ESTRADIOL (test code = 2505) 39.3 PG/ML [id number] 00:00:00 Test Item Value Reference Range Interpretation Comments ESTRADIOL (test code = 2505) 39.3 PG/ML VAGINAL PATHOGENS DNA [id number] 00:00:00 Test Item Value Reference Range Interpretation Comments BEATA SPECIES (test code = ) NEGATIVE G. VAGINALIS (test code = ) NEGATIVE T. VAGINALIS (test code = ) POSITIVE
--- NOTE | 2022-03-29 21:47 | ER ---
Nurse's Notes [facility] Name: Carlyn Rodas Age: 31 yrs Sex: Female : 1990 Arrival Date: 03/29/2022 Time: 21:09 Bed 24 Private MD: Diagnosis: Cellulitis of other sites-right dorsal foot;Tinea pedis Presentation: 03/29 21:20 Chief complaint: Patient states: Right foot swelling - pt was seen in ER yesterday. ld1 "Just now picked up meds but have not used them yet." Pt c/o right foot swelling, swelling became worse today. Coronavirus screen: At this time, the client does not indicate any symptoms associated with coronavirus-19. Ebola Screen: No symptoms or risks identified at this time. Initial Sepsis Screen: Does the patient meet any 2 criteria? No. Patient's initial sepsis screen is negative. Does the patient have a suspected source of infection? No. Patient's initial sepsis screen is negative. Risk Assessment: Do you want to hurt yourself or someone else? Patient reports no desire to harm self or others. Onset of symptoms was March 29, 2022. 21:20 Method Of Arrival: Ambulatory ld1 21:20 Acuity: FERNANDO 4 ld1 Triage Assessment: 21:21 General: Appears in no apparent distress. comfortable, Behavior is calm, cooperative, ld1 appropriate for age. Pain: Complains of pain in right foot Pain does not radiate. Pain currently is 9 out of 10 on a pain scale. EENT: No signs and/or symptoms were reported regarding the EENT system. Neuro: Level of Consciousness is awake, alert, obeys commands, Oriented to person, place, time, situation. Cardiovascular: Capillary refill < 3 seconds Patient's skin is warm and dry. Respiratory: Airway is patent Respiratory effort is even, unlabored. GI: Abdomen is round non-distended. : No signs and/or symptoms were reported regarding the genitourinary system. Derm: No signs and/or symptoms reported regarding the dermatologic system. Musculoskeletal: No signs and/or symptoms reported regarding the musculoskeletal system. 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 - Social history:: Smoking status: Patient denies any tobacco usage or history of. Patient/guardian denies using alcohol. Screenin:28 Abuse screen: Denies threats or abuse. Denies injuries from another. Nutritional lp1 screening: No deficits noted. Tuberculosis screening: No symptoms or risk factors identified. Fall Risk None identified. Assessment: 22:30 General: Appears in no apparent distress. Behavior is calm, cooperative, appropriate lp1 for age. Pain: Complains of pain in dorsum of left foot Pain currently is 6 out of 10 on a pain scale. Quality of pain is described as aching. Neuro: Level of Consciousness is awake, alert, obeys commands. Cardiovascular: Patient's skin is warm and dry. Respiratory: Respiratory effort is even, unlabored. GI: No signs and/or symptoms were reported involving the gastrointestinal system. : No signs and/or symptoms were reported regarding the genitourinary system. EENT: No signs and/or symptoms were reported regarding the EENT system. Derm: Wound noted Wound is Redness, swelling to dorsal left foot. Musculoskeletal: No deficits noted. Vital Signs: 21:20 BP 138 / 81; Pulse 88; Resp 18; Temp 98.3(TE); Pulse Ox 100% on R/A; Weight 74.84 kg; ld1 Height 4 ft. 11 in. (149.86 cm); Pain 9/10; 21:20 Body Mass Index 33.33 (74.84 kg, 149.86 cm) ld1 ED Course: 21:09 Patient arrived in ED. ja2 21:21 Triage completed. ld1 21:21 Arm band placed on right wrist. ld1 21:24 Radhika Dunham FNP-C [facility]. snw 21:24 Tara Curiel MD is Attending Physician. snw 21:33 Kimberly Wagoner, HERMILO is Primary Nurse. lp1 22:28 No provider procedures requiring assistance completed. Patient did not have IV access lp1 during this emergency room visit. 22:30 Patient has correct armband on for positive identification. lp1 Administered Medications: 22:15 Drug: Tetanus-Diphtheria Toxoid Adult 0.5 ml {Card Player: [employer]. Exp: lp1 12/26/2023. Lot #: [id number]. } Route: IM; Site: left deltoid; 22:29 Follow up: Response: No adverse reaction lp1 22:15 Drug: DiFLUcan (fluconazole) 200 mg Route: PO; lp1 22:29 Follow up: Response: No adverse reaction lp1 22:15 Drug: Clindamycin 300 mg Route: PO; lp1 22:29 Follow up: Response: No adverse reaction lp1 Medication: 22:30 Vaccine Information Statement (VIS) provided today. Questions and/or concerns lp1 addressed. VIS edition date: March 27, 2021. Outcome: 21:45 Discharge ordered by . snw 22:30 Discharged to home ambulatory. lp1 22:30 Condition: good 22:30 Discharge instructions given to patient, Instructed on discharge instructions, follow up and referral plans. medication usage, Demonstrated understanding of instructions, follow-up care, medications, Prescriptions given X 2. 22:32 Patient left the ED. lp1 Signatures: Radhika Dunham, SCIENTIST [employer]LECTRON[employer]-C SCIENTIST [employer]-Csnw Kimberly Wagoner, RN RN lp1 Beryl Vidal, RN RN ld1 Giulia Arriaza Corrections: (The following items were deleted from the chart) 21:43 21:34 VIS not applicable for this client. lp1 lp1
--- NOTE | 2022-03-29 21:47 | EDPHYS ---
Physician Documentation [facility] Name: Carlyn Rodas Age: 31 yrs Sex: Female : 1990 Arrival Date: 03/29/2022 Time: 21:09 Bed 24 Private MD: ED Physician Tara Curiel HPI: 03/29 21:40 This 31 yrs old Female presents to ER via Ambulatory with complaints of right snw foot. 21:40 The patient presents with a rash, swelling, tenderness. The complaints affect the right snw foot. Context: resulted from an unknown cause. Onset: The symptoms/episode began/occurred gradually, and became worse. Modifying factors: The symptoms are alleviated by nothing, the symptoms are aggravated by weight bearing. Severity of symptoms: At their worst the symptoms were moderate. It is unknown whether or not the patient has had similar symptoms in the past. The patient has been recently seen by a physician: The patient has been recently seen at the [facility] Emergency Department, yesterday, for similar complaints given bacitracin and motrin. . 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 - Social history:: Smoking status: Patient denies any tobacco usage or history of. Patient/guardian denies using alcohol. ROS: 21:39 Constitutional: Negative for fever, chills, and weight loss, Eyes: Negative for injury, snw pain, redness, and discharge, ENT: Negative for injury, pain, and discharge, Neck: Negative for injury, pain, and swelling, Cardiovascular: Negative for chest pain, palpitations, and edema, Respiratory: Negative for shortness of breath, cough, wheezing, and pleuritic chest pain, Abdomen/GI: Negative for abdominal pain, nausea, vomiting, diarrhea, and constipation, Back: Negative for injury and pain, : Negative for injury, bleeding, discharge, and swelling, Neuro: Negative for headache, weakness, numbness, tingling, and seizure, Psych: Negative for depression, anxiety, suicide ideation, homicidal ideation, and hallucinations. 21:39 MS/extremity: Positive for swelling, tenderness, of the right foot. Exam: 21:38 Constitutional: This is a well developed, well nourished patient who is awake, alert, snw and in no acute distress. Head/Face: Normocephalic, atraumatic. Eyes: Pupils equal round and reactive to light, extra-ocular motions intact. Lids and lashes normal. Conjunctiva and sclera are non-icteric and not injected. Cornea within normal limits. Periorbital areas with no swelling, redness, or edema. ENT: Nares patent. No nasal discharge, no septal abnormalities noted. Tympanic membranes are normal and external auditory canals are clear. Oropharynx with no redness, swelling, or masses, exudates, or evidence of obstruction, uvula midline. Mucous membranes moist. Neck: Trachea midline, no thyromegaly or masses palpated, and no cervical lymphadenopathy. Supple, full range of motion without nuchal rigidity, or vertebral point tenderness. No Meningismus. Chest/axilla: Normal chest wall appearance and motion. Nontender with no deformity. No lesions are appreciated. Cardiovascular: Regular rate and rhythm with a normal S1 and S2. No gallops, murmurs, or rubs. Normal PMI, no JVD. No pulse deficits. Respiratory: Lungs have equal breath sounds bilaterally, clear to auscultation and percussion. No rales, rhonchi or wheezes noted. No increased work of breathing, no retractions or nasal flaring. Abdomen/GI: Soft, non-tender, with normal bowel sounds. No distension or tympany. No guarding or rebound. No evidence of tenderness throughout. Back: No spinal tenderness. No costovertebral tenderness. Full range of motion. MS/ Extremity: Pulses equal, no cyanosis. Neurovascular intact. Full, normal range of motion. Neuro: Awake and alert, GCS 15, oriented to person, place, time, and situation. Cranial nerves II-XII grossly intact. Motor strength 5/5 in all extremities. Sensory grossly intact. Cerebellar exam normal. Normal gait. Psych: Awake, alert, with orientation to person, place and time. Behavior, mood, and affect are within normal limits. 21:38 Skin: cellulitis, that is mild, confluent, on the right foot, rash a moderate rash is noted, rash can be described as erythematous, tinea. 21:42 Special observations: peeling skin around bilateral feet consistent with tinea, right snw dorsal foot with erythema, edema. tattoo to dorsal right foot remote but area with erythema consistent with cellulitis. Vital Signs: 21:20 BP 138 / 81; Pulse 88; Resp 18; Temp 98.3(TE); Pulse Ox 100% on R/A; Weight 74.84 kg; ld1 Height 4 ft. 11 in. (149.86 cm); Pain 9/10; 21:20 Body Mass Index 33.33 (74.84 kg, 149.86 cm) ld1 MDM: 21:27 Patient medically screened. snw 21:46 Data reviewed: vital signs, nurses notes. Data interpreted: Pulse oximetry: on room air snw is 100 %. Interpretation: normal. Counseling: I had a detailed discussion with the patient and/or guardian regarding: the historical points, exam findings, and any diagnostic results supporting the discharge/admit diagnosis, the presence of at least one elevated blood pressure reading (>120/80) during this emergency department visit, the need for outpatient follow up, to return to the emergency department if symptoms worsen or persist or if there are any questions or concerns that arise at home. Special discussion: Based on the history and exam findings, there is no indication for further emergent testing or inpatient evaluation. I discussed with the patient/guardian the need to see the primary care provider for further evaluation of the symptoms. 03/29 22:30 Order name: Glucose, Ancillary Testing; Complete Time: 22:31 EDMS 03/29 21:35 Order name: FSBS; Complete Time: 22:29 snw Administered Medications: 22:15 Drug: Tetanus-Diphtheria Toxoid Adult 0.5 ml {[employer]: Workable. Exp: lp1 12/26/2023. Lot #: [id number]. } Route: IM; Site: left deltoid; 22:29 Follow up: Response: No adverse reaction lp1 22:15 Drug: DiFLUcan (fluconazole) 200 mg Route: PO; lp1 22:29 Follow up: Response: No adverse reaction lp1 22:15 Drug: Clindamycin 300 mg Route: PO; lp1 22:29 Follow up: Response: No adverse reaction lp1 Disposition: 03/30 01:29 Co-signature as Attending Physician, Tara Curiel MD STAFF ATTESTATION STATEMENT I sd2 was immediately available on-site in the Emergency Department for consultation in the care of the patient. Taar Curiel MD. Disposition Summary: 03/29/22 21:45 Discharge Ordered Location: Home snw Condition: Stable snw Diagnosis - Cellulitis of other sites - right dorsal foot snw - Tinea pedis snw Followup: snw - With: Emergency Department - When: As needed - Reason: Worsening of condition Followup: snw - With: Private Physician - When: 2 - 3 days - Reason: Recheck today's complaints, Continuance of care, Re-evaluation by your physician Discharge Instructions: - Discharge Summary Sheet snw - Athlete's Foot snw - Cellulitis, Adult snw Forms: - Medication Reconciliation Form snw - Thank You Letter snw - Antibiotic Education snw - Prescription Opioid Use snw - Work release form lp1 Prescriptions: - Clindamycin HCl 300 mg Oral Capsule - take 1 capsule by ORAL route every 8 hours for 10 days; 30 capsule; Refills: 0, snw Product Selection Permitted - Clotrimazole 1 % Topical Cream - Apply to affected area 1 application by TOPICAL route every 12 hours; 15 gram; snw Refills: 0, Product Selection Permitted Signatures: Radhika Dunham FNP-Felix EPILEPSY PHYSICIAN-Csnw Kimberly Wagoner RN RN lp1 Beryl Vidal RN RN ld1 Rena Todd PA PA sb3 Tara Curiel MD MD sd2
[2022-03-29] MEDS ORDERED: FLUCONAZOLE 100 MG TAB ONE (22:17)
[2022-03-29] MEDS ORDERED: TETANUS & DIPHTHERIA TOX,ADULT 0.5 ML VIAL ONE (22:18)
[2022-03-30 02:46] VITALS: BP 138/81; TEMP 98.3; O2SAT 100
== END 2022-03-29 22:32 | disposition home or self-care (01) ==
LOC: ER 20:53
DX: L03.115 Cellulitis of right lower limb (principal); B35.3 Tinea pedis; Z23 Encounter for immunization
CPT/HCPCS: 82947; 90471; 90714; 99283

== ENCOUNTER 2022-05-07 07:38 | Emergency (ER) | payer BC ==
--- OUTSIDE RECORDS SUMMARY | 2022-05-07 07:41 | XMS REPORT | Continuity of Care Document ---
:1990 Author Organization [facility] t Address [address] [place] [address] [address]. [address] [place] [address] Care Team Providers Name Role Phone Rey Le Primary Care Physician [phone] Problems This patient has no known problems. Allergies, Adverse Reactions, Alerts Allergy Allergy Status Severity Reaction(s) Onset Inactive Treating Comm ents Source Name Type Date Date Clinician Daija Felipe Active 2021-0 Intraven ty to 02-25 ous adverse 00:00: reaction 00 to drug Medications Ordered Filled Start Stop Current Ordering Indication Dosage Frequency Signature Comments Components Source Medication Medication Date Date Medication? Clinician (SIG) Name Name DISSOLVE 1 2021-0 No 4 TABLET IN 8-10 MOUTH EVERY 00:00: 4 TO 6 00 HOURS TAKE 1 2021-0 No 300 CAPSULE BY 8-10 MOUTH EVERY 00:00: 8 HOURS FOR 00 10 DAYS USE 2021-0 No DIRECTED 8-10 TWICE DAILY 00:00: TO AFFECTED 00 AREA TAKE 1 2021-0 No 500 TABLET 8-10 TWICE DAILY 00:00: UNTIL 00 FINISHED. TAKE 1 2021-0 No TABLET BY 8-10 MOUTH EVERY 00:00: 12 HOURS 00 &lt 2-0 No 20 7-12 00:00: 00 TAKE 1 2021-0 No 20 TABLET BY 7-08 MOUTH EVERY 00:00: 12 HOURS 00 FOR 30 DAYS DISSOLVE 1 2021-0 No 4 TABLET IN 7-08 MOUTH EVERY 00:00: 4 TO 6 00 HOURS TAKE 1 2021-0 No 20 TABLET BY 7-08 MOUTH EVERY 00:00: 12 HOURS 00 FOR 30 DAYS DISSOLVE 1 2021-0 No 4 TABLET IN 7-08 MOUTH EVERY 00:00: 4 TO 6 00 HOURS USE 2021-0 No DIRECTED -07 TWICE DAILY 00:00: TO AFFECTED 00 AREA USE 2-0 No DIRECTED 7-07 TWICE DAILY 00:00: TO AFFECTED 00 AREA ibuprofen 2022-0 No 1mg 600 mg 2-11 tablet 00:00: 00 ibuprofen 2022-0 No 1mg 600 mg 2-11 tablet 00:00: 00 diclofenac 1-0 No 1mg sodium 75 7-28 mg 00:00: tablet,zeferino 00 yed release cyclobenzap 2021-0 No 1mg rine 10 mg 7-28 tablet 00:00: 00 diclofenac 2021-0 No 1mg sodium 75 7-28 mg 00:00: tablet,zeferino 00 yed release cyclobenzap 1-0 No 1mg rine 10 mg 7-28 tablet 00:00: 00 triamcinolo 1-0 No 1% ne 7-17 acetonide 00:00: 0.1 % 00 topical ointment clotrimazol 1-0 No 1% e 1 % 7-17 topical 00:00: cream 00 triamcinolo 1-0 No 1% ne 7-17 acetonide 00:00: 0.1 % 00 topical ointment clotrimazol 1-0 No 1% e 1 % 7-17 topical 00:00: cream 00 Macrobid 1-0 No 1mg 100 mg 7-12 capsule 00:00: 00 Macrobid 1-0 No 1mg 100 mg 7-12 capsule 00:00: 00 Zyrtec 10 1-0 No 1mg mg tablet 01-21 00:00: 00 Zyrtec 10 1-0 No 1mg mg tablet 01-21 00:00: 00 Xulane 150 2021-0 No 1mcg/24 mcg-35 2-19 hr mcg/24 hr 00:00: transdermal 00 patch Xulane 150 2021-0 No 1mcg/24 mcg-35 2-19 hr mcg/24 hr 00:00: transdermal 00 patch Flagyl 500 1-0 No 1mg mg tablet -20 00:00: 00 Flagyl 500 2021-0 No 1mg mg tablet -20 00:00: 00 Macrobid 2021-0 No 1mg 100 mg 1-16 capsule 00:00: 00 Macrobid 2021-0 No 1mg 100 mg 1-16 capsule 00:00: 00 Immunizations Ordered Immunization Filled Immunization Date Status Commen ts Source Name Name Red REDDIDJennifer 2021-01-01 Completed Vaccine 00:00:00 Red REDDID-Papo 2021-01-01 Completed Vaccine 00:00:00 Red REDDID-Papo 2020-12-03 Completed Vaccine 00:00:00 Red REDDIDJennifer 2020-12-03 Completed Vaccine 00:00:00 Vital Signs Vital Name Observation Time Observation Value Comments Source BP Systolic 2022-03-31 11:19:00 107 mm[Hg] BP Diastolic 2022-03-31 11:19:00 67 mm[Hg] Weight Measured 2022-03-31 11:19:00 174.40 pounds Height Measured 2022-03-31 11:19:00 60.24 inches Body Temperature 2022-03-31 11:19:00 97.60 degrees Heart Rate 2022-03-31 11:19:00 98.00 /min Respiratory Rate 2022-03-31 11:19:00 BP Systolic 2022-02-25 16:00:00 109 mm[Hg] BP [...] 14:03:00 93.00 /min Respiratory Rate 2021-10-02 14:03:00 BP Systolic 2021-03-26 16:20:00 107 mm[Hg] BP Diastolic 2021-03-26 16:20:00 64 mm[Hg] Weight Measured 2021-03-26 16:20:00 173.80 pounds Height Measured 2021-03-26 16:20:00 60.24 inches Body Temperature 2021-03-26 16:20:00 98.00 degrees Heart Rate 2021-03-26 16:20:00 83.00 /min Respiratory Rate 2021-03-26 16:20:00 BP Systolic 2021-03-18 14:18:00 130 mm[Hg] BP [...] Goal Plan of Care Note [code = 25513-7] Goal Plan of Care Note [code = 50274-4] Goal Plan of Care Note [code = 30911-9] Goal Plan of Care Note [code = 09482-8] Goal Plan of Care Note [code = 21813-7] Goal Plan of Care Note [code = 57322-0] Goal Plan of Care Note [code = 48464-9] Goal Plan of Care Note [code = 16751-1] Goal Plan of Care Note [code = 38872-1] Goal Plan of Care Note [code = 22091-4] Goal Plan of Care Note [code = 12479-7] Goal Plan of Care Note [code = 28572-8] Goal Plan of Care Note [code = 03038-3] Goal Plan of Care Note [code = 23415-0] Goal Plan of Care Note [code = 83262-9] Goal Plan of Care Note [code = 98752-2] Goal Plan of Care Note [code = 82882-9] Goal Plan of Care Note [code = 45227-4] Goal Plan of Care Note [code = 38216-0] Goal Plan of Care Note [code = 28350-9] Goal Plan of Care Note [code = 84073-5] Goal Plan of Care Note [code = 77127-2] Goal Plan of Care Note [code = 24830-2] Goal Plan of Care Note [code = 94296-0] Goal Plan of Care Note [code = 69097-5] Goal Plan of Care Note [code = 36660-3] Goal Plan of Care Note [code = 80068-2] Goal Plan of Care Note [code = 77881-0] Goal Plan of Care Note [code = 31938-7] Goal Plan of Care Note [code = 37550-6] Goal Plan of Care Note [code = 63384-9] Goal Plan of Care Note [code = 36588-3] Goal Plan of Care Note [code = 35997-1] Goal Plan of Care Note [code = 38987-2] Goal Plan of Care Note [code = 27756-5] Goal Plan of Care Note [code = 16607-8] Goal Plan of Care Note [code = 95743-1] Goal Plan of Care Note [code = 67492-8] Goal Plan of Care Note [code = 86272-2] Goal Plan of Care Note [code = 81777-7] Goal Plan of Care Note [code = 88858-4] Goal Plan of Care Note [code = 34985-6] Goal Plan of Care Note [code = 95355-3] Goal Plan of Care Note [code = 06021-1] Goal Plan of Care Note [code = 45378-5] Goal Plan of Care Note [code = 04607-5] Goal Plan of Care Note [code = 76585-5] Goal Plan of Care Note [code = 58298-2] Goal Plan of Care Note [code = 45266-5] Goal Plan of Care Note [code = 84370-9] Goal Plan of Care Note [code = 82575-2] Goal Plan of Care Note [code = 96653-0] Goal Plan of Care Note [code = 14909-2] Goal Plan of Care Note [code = 48439-5] Goal Plan of Care Note [code = 10498-1] Goal Plan of Care Note [code = 67994-1] Goal Plan of Care Note [code = 93594-3] Goal Plan of Care Note [code = 06891-6] Goal Plan of Care Note [code = 78239-4] Goal Plan of Care Note [code = 06192-4] Encounters Start End Encounter Admission Attending Care Care Encounter Source Date/Time Date/Time Type Type Clinicians Facility Department ID 2022-03-31 2022-03-31 Outpatient [id number] 00:00:00 00:00:00 Visit 4730-47fc [id number] 2022-02-25 2022-02-25 Outpatient [id number] 00:00:00 00:00:00 Visit 27ac-49cc [id number] Results Test Description Test Time Test Comments Results Result Comments Source VAGINAL PATHOGENS DNA PANEL 2022-03-01 17:28:27 Test Item Value Reference Range Interpretation Comme nts BEATA SPECIES (test code = NEGATIVE NEGATIVE ) G. VAGINALIS (test code = POSITIVE NEGATIVE A ) T. VAGINALIS (test code = NEGATIVE NEGATIVE U NLESS OTHERWISE INDICATED, ALL ) TESTING PERFORM ED ATCLINICAL PATHOLOGY [facility]. [address] [place] [address] LABORATORY DIRE CTOR: ASHLEY ZARGAOZA M.D. CLIA NUMBER [id number] [facility] [place]. [id number] VAGINAL PATHOGENS DNA [id number] 00:00:00 Test Item Value Reference Range Interpretation Comments BEATA SPECIES (test code = ) NEGATIVE G. VAGINALIS (test code = 76354) POSITIVE T. VAGINALIS (test code = ) NEGATIVE VAGINAL PATHOGENS DNA [id number] 00:00:00 Test Item Value Reference Range Interpretation Comments BAETA SPECIES (test code = ) NEGATIVE G. VAGINALIS (test code = ) POSITIVE T. VAGINALIS (test code = ) NEGATIVE CULTURE, [id number] 11:55:32SPECIMEN NUMBER: [id number] CULTURE, URINE SPECIMEN NUMBER: [id number] SPECIMEN COMMENT: URINE SOURCE:URINE REPORT STATUS: FINAL FINAL REPORT: 02/28/2022 10-50,000 CFU/ML UROGENITAL TRENT PRESENT NO COMM ON PATHOGENSCULTURE, [id number] 00:00:00 Test Item Value Reference Range Interpretation Comments CULTURE, URINE (test SPECIMEN NUMBER: code = 88585) [id number] CULTURE, [id number] 00:00:00 Test Item Value Reference Range Interpretation Comments CULTURE, URINE (test SPECIMEN NUMBER: code = 25737) [id number] GC, AMPLIFIED, [id number] 00:00:00 Test Item Value Reference Range Interpretation Comments GONORRHEA, NAAT (test code = 86605) NEGATIVE GC, AMPLIFIED, [id number] 00:00:00 Test Item Value Reference Range Interpretation Comments GONORRHEA, NAAT (test code = 29393) NEGATIVE CHLAMYDIA, AMPLIFIED, [id number] 00:00:00 Test Item Value Reference Range Interpretation Comments CHLAMYDIA, NAAT (test code = 81444) NEGATIVE GC, AMPLIFIED, [id number] 00:00:00 Test Item Value Reference Range Interpretation Comments GONORRHEA, NAAT (test code = 43525) NEGATIVE CHLAMYDIA, AMPLIFIED, [id number] 00:00:00 Test Item Value Reference Range Interpretation Comments CHLAMYDIA, NAAT (test code = 35004) NEGATIVE CHLAMYDIA, AMPLIFIED, [id number] 00:00:00 Test Item Value Reference Range Interpretation Comments CHLAMYDIA, NAAT (test code = 86346) NEGATIVE HCG, [id number] 00:00:00 Test Item Value Reference Range Interpretation Comments HCG, QUANTITATIVE (test code = <5 MIU/ML 2506) HCG, [id number] 00:00:00 Test Item Value Reference Range Interpretation Comments HCG, QUANTITATIVE (test code = <5 MIU/ML 2506) HCG, [id number] 00:00:00 Test Item Value Reference Range Interpretation Comments HCG, QUANTITATIVE (test code = <5 MIU/ML 2506) HCG, [id number] 00:00:00 Test Item Value Reference Range Interpretation Comments HCG, QUANTITATIVE (test code = <5 MIU/ML 2506) HCG, [id number] 00:00:00 Test Item Value Reference Range Interpretation Comments HCG, QUANTITATIVE (test code = <5 MIU/ML 2506) ACUTE HEPATITIS [id number] 00:00:00 Test Item Value Reference Range Interpretation Comments HEPATITIS A IgM (test code = NON-REACTIVE 47589) HEPATITIS B CORE IgM (test code NON-REACTIVE = 4644) HEPATITIS B SURF AG (test code = NON-REACTIVE 2739) HEPATITIS C ANTIBODY (test code NON-REACTIVE = 4675) INTERPRETATION HEPATITIS A: (NOTE) (test code = 2552) INTERPRETATION HEPATITIS B: (NOTE) (test code = 07074) INTERPRETATION HEPATITIS C: (NOTE) (test code = 95451) ACUTE HEPATITIS [id number] 00:00:00 Test Item Value Reference Range Interpretation Comments HEPATITIS A IgM (test code = NON-REACTIVE 95684) HEPATITIS B CORE IgM (test code NON-REACTIVE = 4644) HEPATITIS B SURF AG (test code = NON-REACTIVE 2739) HEPATITIS C ANTIBODY (test code NON-REACTIVE = 4675) INTERPRETATION HEPATITIS A: (NOTE) (test code = 2552) INTERPRETATION HEPATITIS B: (NOTE) (test code = 03665) INTERPRETATION HEPATITIS C: (NOTE) (test code = 62944) CHLAMYDIA, AMPLIFIED, [id number] 00:00:00 Test Item Value Reference Range Interpretation Comments CHLAMYDIA, NAAT (test code TEST NOT PERFORMED = 92238) CHLAMYDIA, AMPLIFIED, [id number] 00:00:00 Test Item Value Reference Range Interpretation Comments CHLAMYDIA, NAAT (test code TEST NOT PERFORMED = 43506) GC, AMPLIFIED, [id number] 00:00:00 Test Item Value Reference Range Interpretation Comments GONORRHEA, NAAT (test code TEST NOT PERFORMED = 82987) GC, AMPLIFIED, [id number] 00:00:00 Test Item Value Reference Range Interpretation Comments GONORRHEA, NAAT (test code TEST NOT PERFORMED = 79334) HIV AB/AG COMBO RFLX [id number] 00:00:00 Test Item Value Reference Range Interpretation Comments HIV 1/2 4TH GEN, RFLX CONF (test NON-REACTIVE code = 3514) ACUTE HEPATITIS [id number] 00:00:00 Test Item Value Reference Range Interpretation Comments HEPATITIS A IgM (test code = NON-REACTIVE 28315) HEPATITIS B CORE IgM (test code NON-REACTIVE = 4644) HEPATITIS B SURF AG (test code = NON-REACTIVE 4379) HEPATITIS C ANTIBODY (test code NON-REACTIVE = 4675) INTERPRETATION HEPATITIS A: (NOTE) (test code = 2552) INTERPRETATION HEPATITIS B: (NOTE) (test code = 20314) INTERPRETATION HEPATITIS C: (NOTE) (test code = 01809) CHLAMYDIA, AMPLIFIED, [id number] 00:00:00 Test Item Value Reference Range Interpretation Comments CHLAMYDIA, NAAT (test code TEST NOT PERFORMED = 75628) GC, AMPLIFIED, [id number] 00:00:00 Test Item Value Reference Range Interpretation Comments GONORRHEA, NAAT (test code TEST NOT PERFORMED = 03082) HIV AB/AG COMBO RFLX [id number] 00:00:00 Test Item Value Reference Range Interpretation Comments HIV 1/2 4TH GEN, RFLX CONF (test NON-REACTIVE code = 3514) HIV AB/AG COMBO RFLX [id number] 00:00:00 Test Item Value Reference Range Interpretation Comments HIV 1/2 4TH GEN, RFLX CONF (test NON-REACTIVE code = 3514) [id number] 00:00:00 Test Item Value Reference Range Interpretation Comments RPR RESULT (test code = NON-REACTIVE 3501) RPR TITER (test code = 3500) NOT INDIC. TITER [id number] 00:00:00 Test Item Value Reference Range Interpretation Comments RPR RESULT (test code = NON-REACTIVE 3501) RPR TITER (test code = 3500) NOT INDIC. TITER [id number] 00:00:00 Test Item Value Reference Range Interpretation Comments RPR RESULT (test code = NON-REACTIVE 3501) RPR TITER (test code = 3500) NOT INDIC. TITER [id number] 00:00:00 Test Item Value Reference Range Interpretation Comments RPR RESULT (test code = NON-REACTIVE 3501) RPR TITER (test code = 3500) NOT INDIC. TITER [id number] 00:00:00 Test Item Value Reference Range Interpretation Comments RPR RESULT (test code = NON-REACTIVE 3501) RPR TITER (test code = 3500) NOT INDIC. TITER CULTURE, [id number] 00:00:00 Test Item Value Reference Range Interpretation Comments CULTURE, URINE (test SPECIMEN NUMBER: code = 01406) [id number] CULTURE, [id number] 00:00:00 Test Item Value Reference Range Interpretation Comments CULTURE, URINE (test SPECIMEN NUMBER: code = 38517) [id number] CULTURE, [id number] 00:00:00 Test Item Value Reference Range Interpretation Comments CULTURE, URINE (test SPECIMEN NUMBER: code = 61902) [id number] HIV AB/AG COMBO RFLX [id number] 00:00:00 Test Item Value Reference Range Interpretation Comments HIV 1/2 4TH GEN, RFLX CONF (test NON-REACTIVE code = 3514) HIV AB/AG COMBO RFLX [id number] 00:00:00 Test Item Value Reference Range Interpretation Comments HIV 1/2 4TH GEN, RFLX CONF (test NON-REACTIVE code = 3514) [id number] 00:00:00 Test Item Value Reference Range Interpretation Comments RPR RESULT (test code = NON-REACTIVE 3501) RPR TITER (test code = 3500) NOT INDIC. TITER [id number] 00:00:00 Test Item Value Reference Range Interpretation Comments RPR RESULT (test code = NON-REACTIVE 3501) RPR TITER (test code = 3500) NOT INDIC. TITER [id number] 00:00:00 Test Item Value Reference Range Interpretation Comments RPR RESULT (test code = NON-REACTIVE 3501) RPR TITER (test code = 3500) NOT INDIC. TITER CHLAMYDIA, AMPLIFIED, [id number] 00:00:00 Test Item Value Reference Range Interpretation Comments CHLAMYDIA, NAAT (test code = 22153) NEGATIVE GC, AMPLIFIED, [id number] 00:00:00 Test Item Value Reference Range Interpretation Comments GONORRHEA, NAAT (test code = 42898) NEGATIVE HIV AB/AG COMBO RFLX [id number] 00:00:00 Test Item Value Reference Range Interpretation Comments HIV 1/2 4TH GEN, RFLX CONF (test NON-REACTIVE code = 3514) [id number] 00:00:00 Test Item Value Reference Range Interpretation Comments RPR RESULT (test code = NON-REACTIVE 3501) RPR TITER (test code = 3500) NOT INDIC. TITER [id number] 00:00:00 Test Item Value Reference Range Interpretation Comments RPR RESULT (test code = NON-REACTIVE 3501) RPR TITER (test code = 3500) NOT INDIC. TITER CHLAMYDIA, AMPLIFIED, [id number] 00:00:00 Test Item Value Reference Range Interpretation Comments CHLAMYDIA, NAAT (test code = 05736) NEGATIVE CHLAMYDIA, AMPLIFIED, [id number] 00:00:00 Test Item Value Reference Range Interpretation Comments CHLAMYDIA, NAAT (test code = 21008) NEGATIVE GC, AMPLIFIED, [id number] 00:00:00 Test Item Value Reference Range Interpretation Comments GONORRHEA, NAAT (test code = 62879) NEGATIVE GC, AMPLIFIED, [id number] 00:00:00 Test Item Value Reference Range Interpretation Comments GONORRHEA, NAAT (test code = 95879) NEGATIVE VAGINAL PATHOGENS DNA [id number] 00:00:00 Test Item Value Reference Range Interpretation Comments BEATA SPECIES (test code = ) NEGATIVE G. VAGINALIS (test code = 27097) NEGATIVE T. VAGINALIS (test code = 63819) NEGATIVE VAGINAL PATHOGENS DNA [id number] 00:00:00 Test Item Value Reference Range Interpretation Comments BEATA SPECIES (test code = ) NEGATIVE G. VAGINALIS (test code = 33618) NEGATIVE T. VAGINALIS (test code = ) NEGATIVE VAGINAL PATHOGENS DNA [id number] 00:00:00 Test Item Value Reference Range Interpretation Comments BEATA SPECIES (test code = ) NEGATIVE G. VAGINALIS (test code = ) NEGATIVE T. VAGINALIS (test code = ) NEGATIVE COMPREHENSIVE METABOLIC [id number] 00:00:00 Test Item Value Reference Range Interpretation Comments GLUCOSE (test code = 2217) 94 MG/DL BUN (test code = 2208) 11 MG/DL CREATININE (test code = 2214) 0.63 MG/DL eGFR AMER. (test code 140 ML/MIN/1.73 = 93172) eGFR NON- AMER. (test 120 ML/MIN/1.73 code = 97129) CALC BUN/CREAT (test code = 17 RATIO [...] CALC GLOBULIN (test code = 2.9 G/DL 0) CALC A/G RATIO (test code = 1.6 RATIO 4) BILIRUBIN, TOTAL (test code = 0.3 MG/DL 2206) ALKALINE PHOSPHATASE (test 100 U/L code = 2204) AST (test code = 2218) 22 U/L ALT (test code = 2219) 30 U/L COMPREHENSIVE METABOLIC [id number] 00:00:00 Test Item Value Reference Range Interpretation Comments GLUCOSE (test code = 2217) 94 MG/DL BUN (test code = 2208) 11 MG/DL CREATININE (test code = 2214) 0.63 MG/DL eGFR AMER. (test code 140 ML/MIN/1.73 = 66802) eGFR NON- AMER. (test 120 ML/MIN/1.73 code = 14975) CALC BUN/CREAT (test code = 17 RATIO [...] CALC GLOBULIN (test code = 2.9 G/DL 2240) CALC A/G RATIO (test code = 1.6 RATIO 2234) BILIRUBIN, TOTAL (test code = 0.3 MG/DL 220) ALKALINE PHOSPHATASE (test 100 U/L code = 2204) AST (test code = 2218) 22 U/L ALT (test code = 2219) 30 U/L COMPREHENSIVE METABOLIC [id number] 00:00:00 Test Item Value Reference Range Interpretation Comments GLUCOSE (test code = 2217) 94 MG/DL BUN (test code = 2208) 11 MG/DL CREATININE (test code = 2214) 0.63 MG/DL eGFR AMER. (test code 140 ML/MIN/1.73 = 69119) eGFR NON- AMER. (test 120 ML/MIN/1.73 code = 39804) CALC BUN/CREAT (test code = 17 RATIO [...] CALC GLOBULIN (test code = 2.9 G/DL 2240) CALC A/G RATIO (test code = 1.6 RATIO 2234) BILIRUBIN, TOTAL (test code = 0.3 MG/DL 2207) ALKALINE PHOSPHATASE (test 100 U/L code = 2204) AST (test code = 2218) 22 U/L ALT (test code = 2219) 30 U/L PAP TEST, THINPREP, [id number] 00:00:00 Test Item Value Reference Range Interpretation Comments SOURCE: (test code = Cervical/Endocervical 8001) SLIDES: (test code = 1 8011) LMP: (test code = 8021) 2020-09-03 SPECIMEN ADEQUACY: (NOTE) (test code = 78767) INTERPRETATION: (test NILM/NO EPITH. code = 88345) ABNORMALITY;SEE BELOW OTHER COMMENTS: (test (NOTE) code = 8081) MOLD STRIPPER: (test Katherin Ferrari, code = 8101) CT(ASCP)IAC LOCATION: (test code = (NOTE) 90696) CPT: (test code = 8140) (NOTE) PAP TEST, THINPREP, [id number] 00:00:00 Test Item Value Reference Range Interpretation Comments SOURCE: (test code = Cervical/Endocervical 8001) SLIDES: (test code = 1 8011) LMP: (test code = 8021) 2020-09-03 SPECIMEN ADEQUACY: (NOTE) (test code = 09114) INTERPRETATION: (test NILM/NO EPITH. code = 70659) ABNORMALITY;SEE BELOW OTHER COMMENTS: (test (NOTE) code = 8081) MOLD STRIPPER: (test Katherin Ferrari, code = 8101) CT(ASCP)IAC LOCATION: (test code = (NOTE) 61969) CPT: (test code = 8140) (NOTE) PAP TEST, THINPREP, [id number] 00:00:00 Test Item Value Reference Range Interpretation Comments SOURCE: (test code = Cervical/Endocervical 8001) SLIDES: (test code = 1 8011) LMP: (test code = 8021) 2020-09-03 SPECIMEN ADEQUACY: (NOTE) (test code = 51712) INTERPRETATION: (test NILM/NO EPITH. code = 32542) ABNORMALITY;SEE BELOW OTHER COMMENTS: (test (NOTE) code = 8081) MOLD STRIPPER: (test Katherin Ferrari, code = 8101) CT(ASCP)IAC LOCATION: (test code = (NOTE) 67667) CPT: (test code = 8140) (NOTE) [id number] 00:00:00 Test Item Value Reference Range Interpretation Comments RPR RESULT (test code = NON-REACTIVE 3501) RPR TITER (test code = 3500) NOT INDIC. TITER [id number] 00:00:00 Test Item Value Reference Range Interpretation Comments TESTOSTERONE (test code = 2830) 43 NG/DL [id number] 00:00:00 Test Item Value Reference Range Interpretation Comments TESTOSTERONE (test code = 2830) 43 NG/DL HPV HIGH RISK WITH GENOTYPE, [id number] 00:00:00 Test Item Value Reference Range Interpretation Comments HPV HIGH RISK INTERP (test code = NEGATIVE 06919) HPV 16 (test code = 57562) NEGATIVE HPV 18 (test code = 70169) NEGATIVE HPV, HR, OTHER GENOTYPES (test code NEGATIVE = 19807) HPV HIGH RISK WITH GENOTYPE, [id number] 00:00:00 Test Item Value Reference Range Interpretation Comments HPV HIGH RISK INTERP (test code = NEGATIVE 45771) HPV 16 (test code = 41745) NEGATIVE HPV 18 (test code = 20895) NEGATIVE HPV, HR, OTHER GENOTYPES (test code NEGATIVE = 98047) GC AND CHLAMYDIA AMPLIFIED, [id number] 00:00:00 Test Item Value Reference Range Interpretation Comments GONORRHEA, TMA (test code = 32253) NEGATIVE CHLAMYDIA, TMA (test code = 12081) NEGATIVE FSH + LH [id number] 00:00:00 Test Item Value Reference Range Interpretation Comments FOLLICLE STIM HORMONE (test code = 7.0 IU/L 2700) LUTEINIZING HORMONE (test code = 12.1 IU/L 2776) FSH + LH [id number] 00:00:00 Test Item Value Reference Range Interpretation Comments FOLLICLE STIM HORMONE (test code = 7.0 IU/L 2700) LUTEINIZING HORMONE (test code = 12.1 IU/L 2776) [id number] 00:00:00 Test Item Value Reference Range Interpretation Comments PROLACTIN (test code = 2800) 12.5 NG/ML [id number] 00:00:00 Test Item Value Reference Range Interpretation Comments PROLACTIN (test code = 2800) 12.5 NG/ML [id number] 00:00:00 Test Item Value Reference Range Interpretation Comments ESTRADIOL (test code = 2505) 39.3 PG/ML [id number] 00:00:00 Test Item Value Reference Range Interpretation Comments ESTRADIOL (test code = 2505) 39.3 PG/ML [id number] 00:00:00 Test Item Value Reference Range Interpretation Comments ESTRADIOL (test code = 2505) 39.3 PG/ML [id number] 00:00:00 Test Item Value Reference Range Interpretation Comments RPR RESULT (test code = NON-REACTIVE 3501) RPR TITER (test code = 3500) NOT INDIC. TITER [id number] 00:00:00 Test Item Value Reference Range Interpretation Comments RPR RESULT (test code = NON-REACTIVE 3501) RPR TITER (test code = 3500) NOT INDIC. TITER [id number] 00:00:00 Test Item Value Reference Range Interpretation Comments TESTOSTERONE (test code = 2830) 43 NG/DL HPV HIGH RISK WITH GENOTYPE, [id number] 00:00:00 Test Item Value Reference Range Interpretation Comments HPV HIGH RISK INTERP (test code = NEGATIVE 03338) HPV 16 (test code = 06589) NEGATIVE HPV 18 (test code = 67978) NEGATIVE HPV, HR, OTHER GENOTYPES (test code NEGATIVE = 54532) FSH + LH [id number] 00:00:00 Test Item Value Reference Range Interpretation Comments FOLLICLE STIM HORMONE (test code = 7.0 IU/L 2700) LUTEINIZING HORMONE (test code = 12.1 IU/L 2776) [id number] 00:00:00 Test Item Value Reference Range Interpretation Comments PROLACTIN (test code = 2800) 12.5 NG/ML [id number] 00:00:00 Test Item Value Reference Range Interpretation Comments ESTRADIOL (test code = 2505) 39.3 PG/ML [id number] 00:00:00 Test Item Value Reference Range Interpretation Comments ESTRADIOL (test code = 2505) 39.3 PG/ML HIV AB/AG COMBO RFLX [id number] 00:00:00 Test Item Value Reference Range Interpretation Comments HIV 1/2 4TH GEN, RFLX CONF (test NON-REACTIVE code = 3514) HIV AB/AG COMBO RFLX [id number] 00:00:00 Test Item Value Reference Range Interpretation Comments HIV 1/2 4TH GEN, RFLX CONF (test NON-REACTIVE code = 3514) GC AND CHLAMYDIA AMPLIFIED, [id number] 00:00:00 Test Item Value Reference Range Interpretation Comments GONORRHEA, TMA (test code = 27290) NEGATIVE CHLAMYDIA, TMA (test code = 96953) NEGATIVE GC AND CHLAMYDIA AMPLIFIED, [id number] 00:00:00 Test Item Value Reference Range Interpretation Comments GONORRHEA, TMA (test code = 00961) NEGATIVE CHLAMYDIA, TMA (test code = 32575) NEGATIVE [id number] 00:00:00 Test Item Value Reference Range Interpretation Comments RPR RESULT (test code = NON-REACTIVE 3501) RPR TITER (test code = 3500) NOT INDIC. TITER [id number] 00:00:00 Test Item Value Reference Range Interpretation Comments RPR RESULT (test code = NON-REACTIVE 3501) RPR TITER (test code = 3500) NOT INDIC. TITER HIV AB/AG COMBO RFLX [id number] 00:00:00 Test Item Value Reference Range Interpretation Comments HIV 1/2 4TH GEN, RFLX CONF (test NON-REACTIVE code = 3514) VAGINAL PATHOGENS DNA [id number] 00:00:00 Test Item Value Reference Range Interpretation Comments BEATA SPECIES (test code = ) NEGATIVE G. VAGINALIS (test code = 97413) NEGATIVE T. VAGINALIS (test code = 32863) POSITIVE VAGINAL PATHOGENS DNA [id number] 00:00:00 Test Item Value Reference Range Interpretation Comments BEATA SPECIES (test code = 93195) NEGATIVE G. VAGINALIS (test code = 58662) NEGATIVE T. VAGINALIS (test code = 13988) POSITIVE VAGINAL PATHOGENS DNA [id number] 00:00:00 Test Item Value Reference Range Interpretation Comments BEATA SPECIES (test code = 56346) NEGATIVE G. VAGINALIS (test code = 92084) NEGATIVE T. VAGINALIS (test code = 80203) POSITIVE
--- NOTE | 2022-05-07 09:21 | ER ---
Nurse's Notes [facility] Name: Carlyn Rodas Age: 31 yrs Sex: Female : 1990 Arrival Date: 05/07/2022 Time: 07:39 Bed 13 Private MD: Diagnosis: Coronavirus infection, unspecified Presentation: 05/07 07:46 Chief complaint: Patient states: dry cough, states she thinks it may be from picking kr3 her nose and eating it. Coronavirus screen: Vaccine status: Patient reports receiving the 2nd dose of the covid vaccine. Client denies travel out of the [place] in the last 14 days. Ebola Screen: Patient denies travel to an Ebola-affected area in the 21 days before illness onset. Initial Sepsis Screen: Does the patient meet any 2 criteria? No. Patient's initial sepsis screen is negative. Does the patient have a suspected source of infection? Yes: Productive cough/pneumonia. Risk Assessment: Do you want to hurt yourself or someone else? Patient reports no desire to harm self or others. Onset of symptoms was May 07, 2022. 07:46 Method Of Arrival: Ambulatory kr3 07:46 Acuity: FERNANDO 4 kr3 Triage Assessment: 07:52 General: Appears in no apparent distress. comfortable, Behavior is calm, cooperative, kr3 appropriate for age. Pain: Denies pain. 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 - Social history:: Smoking status: Patient denies any tobacco usage or history of. Screenin:21 Abuse screen: Denies threats or abuse. Denies injuries from another. Nutritional jg9 screening: Difficulty chewing/swallowing? Yes. Tuberculosis screening: No symptoms or risk factors identified. Fall Risk None identified. Assessment: 07:45 Respiratory: Airway is patent Respiratory effort is even, unlabored, Breath sounds are jg9 clear bilaterally. EENT: Throat is reddened. 08:45 Reassessment: No changes from previously documented assessment. Patient and/or family jg9 updated on plan of care and expected duration. Pain level reassessed. Patient is alert, oriented x 3, equal unlabored respirations, skin warm/dry/pink. 09:15 Reassessment: No changes from previously documented assessment. Patient and/or family jg9 updated on plan of care and expected duration. Pain level reassessed. Patient is alert, oriented x 3, equal unlabored respirations, skin warm/dry/pink. patient wants to know how much longer before she is discharged-mid level notifiied. Vital Signs: 07:46 BP 114 / 70; Pulse 73; Resp 16; Temp 98.0; Pulse Ox 98% on R/A; Weight 77.11 kg; Height kr3 4 ft. 11 in. (149.86 cm); Pain 0/10; 08:20 BP 133 / 78; Pulse 80; Resp 14 S; Pulse Ox 99% ; jg9 09:25 BP 117 / 83; Pulse 82; Resp 13 S; Pulse Ox 97% on R/A; jg9 07:46 Body Mass Index 34.34 (77.11 kg, 149.86 cm) kr3 ED Course: 07:39 Patient arrived in ED. am2 07:50 Triage completed. kr3 07:56 Arm band placed on Patient placed in an exam room, on a stretcher. kr3 08:00 Catarino Tracey, RN is Primary Nurse. bp 08:06 Akira Clark PA is PHCP. jmm 08:06 Jorge Carlton MD is Attending Physician. jmm 08:11 Sherry Andrews, HERMILO is Primary Nurse. jg9 08:22 Patient has correct armband on for positive identification. Bed in low position. Call jg9 light in reach. Side rails up X 1. 08:22 Warm blanket given. jg9 09:18 Throat Culture Sent. jg9 09:30 No provider procedures requiring assistance completed. jg9 09:30 Patient did not have IV access during this emergency room visit. jg9 Administered Medications: No medications were administered Medication: 09:30 VIS not applicable for this client. jg9 Outcome: 09:21 Discharge ordered by . [facility] 09:30 Discharged to home ambulatory. jg9 09:30 Condition: stable 09:30 Discharge instructions given to patient, Instructed on discharge instructions, follow up and referral plans. Demonstrated understanding of instructions, follow-up care. 09:32 Patient left the ED. jg9 Signatures: Akira Clark PA PA jmm Moreno, Amanda am2 Peltier, Brian RN RN Sherry Pérez RN RN jg9 Suzi Cano RN RN kr3 Corrections: (The following items were deleted from the chart) 07:52 07:50 Allergies: No Known Allergies; kr3 kr3
--- NOTE | 2022-05-07 09:22 | EDPHYS ---
Physician Documentation [facility] Name: Carlyn Rodas Age: 31 yrs Sex: Female : 1990 Arrival Date: 05/07/2022 Time: 07:39 Bed 13 Private MD: ED Physician Jorge Carlton HPI: 05/07 09:20 This 31 yrs old Female presents to ER via Ambulatory with complaints of dry jmm cough, Sore Throat. 09:20 Onset: The symptoms/episode began/occurred gradually, today. Modifying factors: The jmm symptoms are alleviated by nothing. the symptoms are aggravated by nothing. Associated signs and symptoms: Pertinent positives: sore throat, Pertinent negatives: fever. It is unknown whether or not the patient has had similar symptoms in the past. 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 - Social history:: Smoking status: Patient denies any tobacco usage or history of. ROS: 09:20 Constitutional: Negative for fever, chills, and weight loss. jmm 09:20 ENT: Positive for sore throat. 09:20 All other systems are negative. Exam: 09:20 Constitutional: This is a well developed, well nourished patient who is awake, alert, jmm and in no acute distress. Head/Face: atraumatic. Eyes: EOMI, no conjunctival erythema appreciated 09:20 Neck: Trachea midline, Supple Chest/axilla: Normal chest wall appearance and motion. Cardiovascular: Regular rate and rhythm. No edema appreciated Respiratory: Normal respirations, no respiratory distress appreciated Abdomen/GI: Non distended Back: Normal ROM Skin: General appearance color normal MS/ Extremity: Moves all extremities, no obvious deformities appreciated, no edema noted to the lower extremities Neuro: Awake and alert Psych: Behavior is normal, Mood is normal, Patient is cooperative and pleasant 09:20 ENT: Posterior pharynx: erythema, that is moderate. Vital Signs: 07:46 BP 114 / 70; Pulse 73; Resp 16; Temp 98.0; Pulse Ox 98% on R/A; Weight 77.11 kg; Height kr3 4 ft. 11 in. (149.86 cm); Pain 0/10; 08:20 BP 133 / 78; Pulse 80; Resp 14 S; Pulse Ox 99% ; jg9 09:25 BP 117 / 83; Pulse 82; Resp 13 S; Pulse Ox 97% on R/A; jg9 07:46 Body Mass Index 34.34 (77.11 kg, 149.86 cm) kr3 MDM: 08:20 Patient medically screened. [facility] 09:20 Data reviewed: vital signs, nurses notes. Counseling: I had a detailed discussion with [facility] the patient and/or guardian regarding: the historical points, exam findings, and any diagnostic results supporting the discharge/admit diagnosis, lab results, the need for outpatient follow up, to return to the emergency department if symptoms worsen or persist or if there are any questions or concerns that arise at home. 05/07 08:08 Order name: Influenza Screen (a \\T\\ B); Complete Time: 09:[address] [facility] 05/07 08:08 Order name: Strep; Complete Time: :[address] [facility] 05/07 08:08 Order name: SARS-COV-2 RT PCR (Document "Date of Onset" if Symptomatic); Complete Time: [facility] 08:55 05/07 09:18 Order name: Throat Culture EDMS Administered Medications: No medications were administered Disposition: 17:56 Co-signature as Attending Physician, Jorge Carlton MD I agree with the assessment and kdr plan of care. Disposition Summary: 05/07/22 09:21 Discharge Ordered Location: Home [facility] Condition: Stable [facility] Diagnosis - Coronavirus infection, unspecified [facility] Followup: [facility] - With: Private Physician - When: 2 - 3 days - Reason: Recheck today's complaints, Continuance of care, Re-evaluation by your physician Discharge Instructions: - COVID-[address] [facility] - Discharge Summary Sheet kr3 Forms: - Medication Reconciliation Form [facility] - Thank You Letter [facility] - Antibiotic Education [facility] - Prescription Opioid Use [facility] Signatures: Dispatcher [employer] EDMS Jorge Carlton MD MD kdr Mickail, Joel, PA PA jm Suzi Cano RN RN kr3 Corrections: (The following items were deleted from the chart) 07:52 07:50 Allergies: No Known Allergies; kr3 kr3
[2022-05-08 16:48] VITALS: TEMP 98
[2022-05-08 17:17] VITALS: BP 117/83; O2SAT 97
== END 2022-05-07 09:32 | disposition home or self-care (01) ==
LOC: ER 07:38
DX: U07.1 COVID-19 (principal)
CPT/HCPCS: 87070; 87081; 87804 ×2; 99283; U0003

== ENCOUNTER 2022-05-11 22:51 | Emergency (ER) | payer BC ==
--- OUTSIDE RECORDS SUMMARY | 2022-05-11 22:55 | XMS REPORT | Continuity of Care Document ---
:1990 Author Organization [facility] [place] t Address [address] [place] [address] [address]. [address] [place] [address] Care Team Providers Name Role Phone Rey Le Primary Care Physician [phone] Problems This patient has no known problems. Allergies, Adverse Reactions, Alerts Allergy Allergy Status Severity Reaction(s) Onset Inactive Treating Comm ents Source Name Type Date Date Clinician Daija Felipe Active 2021- Intraven ty to 02-25 ous adverse 00:00: [...] MOUTH EVERY 00:00: 12 HOURS 00 &lt 2022-0 No 20 7-12 00:00: 00 TAKE 1 [...] Goal Plan of Care Note [code = 23290-0] Goal Plan of Care Note [code = 42778-8] Goal Plan of Care Note [code = 27631-1] Goal Plan of Care Note [code = 15293-7] Goal Plan of Care Note [code = 08330-8] Goal Plan of Care Note [code = 79983-9] Goal Plan of Care Note [code = 74019-1] Goal Plan of Care Note [code = 13246-5] Goal Plan of Care Note [code = 08137-5] Goal Plan of Care Note [code = 74254-5] Goal Plan of Care Note [code = 47186-9] Goal Plan of Care Note [code = 30322-4] Goal Plan of Care Note [code = 50370-3] Goal Plan of Care Note [code = 41749-5] Goal Plan of Care Note [code = 15423-5] Goal Plan of Care Note [code = 04824-3] Goal Plan of Care Note [code = 98157-3] Goal Plan of Care Note [code = 01306-4] Goal Plan of Care Note [code = 67943-9] Goal Plan of Care Note [code = 64558-1] Goal Plan of Care Note [code = 23813-9] Goal Plan of Care Note [code = 20370-4] Goal Plan of Care Note [code = 01357-8] Goal Plan of Care Note [code = 63324-6] Goal Plan of Care Note [code = 80898-8] Goal Plan of Care Note [code = 12790-1] Goal Plan of Care Note [code = 63303-2] Goal Plan of Care Note [code = 57940-3] Goal Plan of Care Note [code = 04712-7] Goal Plan of Care Note [code = 45590-0] Goal Plan of Care Note [code = 14743-2] Goal Plan of Care Note [code = 47574-6] Goal Plan of Care Note [code = 08681-2] Goal Plan of Care Note [code = 27698-7] Goal Plan of Care Note [code = 68922-0] Goal Plan of Care Note [code = 48665-1] Goal Plan of Care Note [code = 87375-7] Goal Plan of Care Note [code = 31231-1] Goal Plan of Care Note [code = 21802-0] Goal Plan of Care Note [code = 24353-0] Goal Plan of Care Note [code = 81782-8] Goal Plan of Care Note [code = 27670-3] Goal Plan of Care Note [code = 28588-6] Goal Plan of Care Note [code = 29003-6] Goal Plan of Care Note [code = 37912-9] Goal Plan of Care Note [code = 03669-9] Goal Plan of Care Note [code = 30976-1] Goal Plan of Care Note [code = 00460-9] Goal Plan of Care Note [code = 02195-0] Goal Plan of Care Note [code = 85114-1] Goal Plan of Care Note [code = 64924-2] Goal Plan of Care Note [code = 34280-9] Goal Plan of Care Note [code = 42873-9] Goal Plan of Care Note [code = 52534-8] Goal Plan of Care Note [code = 38606-7] Goal Plan of Care Note [code = 98358-2] Goal Plan of Care Note [code = 57437-9] Goal Plan of Care Note [code = 23212-7] Goal Plan of Care Note [code = 63383-3] Goal Plan of Care Note [code = 28337-9] Encounters Start End Encounter Admission Attending Care Care Encounter Source Date/Time Date/Time Type Type Clinicians Facility Department ID 2022-03-31 2022-03-31 Outpatient [id number] 00:00:00 00:00:00 Visit 4730-47fc [id number] [id number] 2022-02-25 2022-02-25 Outpatient [id number] 00:00:00 00:00:00 Visit 27ac-49cc [id number]-49cc-8 -[id number] Results Test Description Test Time Test Comments Results Result Comments Source VAGINAL PATHOGENS DNA PANEL 2022-03-01 17:28:27 Test Item Value Reference Range Interpretation Comme nts BEATA SPECIES (test code = NEGATIVE NEGATIVE ) G. VAGINALIS (test code = POSITIVE NEGATIVE A ) T. VAGINALIS (test code = NEGATIVE NEGATIVE U NLESS OTHERWISE INDICATED, ALL ) TESTING PERFORM ED ATCLINICAL PATHOLOGY [facility]. [address] [place] [address] LAB[address] DIRE CTOR: ASHLEY ZARAGOZA M.D. CLIA NUMBER [id number] [facility] [place]. [id number] VAGINAL PATHOGENS DNA [id number] 00:00:00 Test Item Value Reference Range Interpretation Comments BEATA SPECIES (test code = ) NEGATIVE G. VAGINALIS (test code = 79843) POSITIVE T. VAGINALIS (test code = ) NEGATIVE VAGINAL PATHOGENS DNA [id number] 00:00:00 Test Item Value Reference Range Interpretation Comments EBATA SPECIES (test code = ) NEGATIVE G. VAGINALIS (test code = ) POSITIVE T. VAGINALIS (test code = ) NEGATIVE CULTURE, [id number] 11:55:32SPECIMEN NUMBER: [id number] CULTURE, URINE SPECIMEN NUMBER: [id number] SPECIMEN COMMENT: URINE SOURCE:URINE REPORT STATUS: FINAL FINAL REPORT: 02/28/2022 10-50,000 CFU/ML UROGENITAL TRENT PRESENT NO COMM ON PATHOGENSCULTURE, [id number] 00:00:00 Test Item Value Reference Range Interpretation Comments CULTURE, URINE (test SPECIMEN NUMBER: code = 12302) [id number] CULTURE, [id number] 00:00:00 Test Item Value Reference Range Interpretation Comments CULTURE, URINE (test SPECIMEN NUMBER: code = 60134) [id number] GC, AMPLIFIED, [id number] 00:00:00 Test Item Value Reference Range Interpretation Comments GONORRHEA, NAAT (test code = 61009) NEGATIVE GC, AMPLIFIED, [id number] 00:00:00 Test Item Value Reference Range Interpretation Comments GONORRHEA, NAAT (test code = 28096) NEGATIVE CHLAMYDIA, AMPLIFIED, [id number] 00:00:00 Test Item Value Reference Range Interpretation Comments CHLAMYDIA, NAAT (test code = 04290) NEGATIVE GC, AMPLIFIED, [id number] 00:00:00 Test Item Value Reference Range Interpretation Comments GONORRHEA, NAAT (test code = 52296) NEGATIVE CHLAMYDIA, AMPLIFIED, [id number] 00:00:00 Test Item Value Reference Range Interpretation Comments CHLAMYDIA, NAAT (test code = 71332) NEGATIVE CHLAMYDIA, AMPLIFIED, [id number] 00:00:00 Test Item Value Reference Range Interpretation Comments CHLAMYDIA, NAAT (test code = 20301) NEGATIVE HCG, [id number] 00:00:00 Test Item Value Reference Range Interpretation Comments HCG, QUANTITATIVE (test code = <5 MIU/ML 2506) HCG, [id number] 00:00:00 Test Item Value Reference Range Interpretation Comments HCG, QUANTITATIVE (test code = <5 MIU/ML 2506) HCG, [id number] 00:00:00 Test Item Value Reference Range Interpretation Comments HCG, QUANTITATIVE (test code = <5 MIU/ML 2506) HCG, [id number] 00:00:00 Test Item Value Reference Range Interpretation Comments HCG, QUANTITATIVE (test code = <5 MIU/ML 2506) HCG, [id number] 00:00:00 Test Item Value Reference Range Interpretation Comments HCG, QUANTITATIVE (test code = <5 MIU/ML 2506) ACUTE HEPATITIS [id number] 00:00:00 Test Item Value Reference Range Interpretation Comments HEPATITIS A IgM (test code = NON-REACTIVE 08468) HEPATITIS B CORE IgM (test code NON-REACTIVE = 4644) HEPATITIS B SURF AG (test code = NON-REACTIVE 2739) HEPATITIS C ANTIBODY (test code NON-REACTIVE = 4675) INTERPRETATION HEPATITIS A: (NOTE) (test code = 2552) INTERPRETATION HEPATITIS B: (NOTE) (test code = 90527) INTERPRETATION HEPATITIS C: (NOTE) (test code = 06463) ACUTE HEPATITIS [id number] 00:00:00 Test Item Value Reference Range Interpretation Comments HEPATITIS A IgM (test code = NON-REACTIVE 25917) HEPATITIS B CORE IgM (test code NON-REACTIVE = 4644) HEPATITIS B SURF AG (test code = NON-REACTIVE 2739) HEPATITIS C ANTIBODY (test code NON-REACTIVE = 4675) INTERPRETATION HEPATITIS A: (NOTE) (test code = 2552) INTERPRETATION HEPATITIS B: (NOTE) (test code = 66726) INTERPRETATION HEPATITIS C: (NOTE) (test code = 25643) CHLAMYDIA, AMPLIFIED, [id number] 00:00:00 Test Item Value Reference Range Interpretation Comments CHLAMYDIA, NAAT (test code TEST NOT PERFORMED = 35485) CHLAMYDIA, AMPLIFIED, [id number] 00:00:00 Test Item Value Reference Range Interpretation Comments CHLAMYDIA, NAAT (test code TEST NOT PERFORMED = 23973) GC, AMPLIFIED, [id number] 00:00:00 Test Item Value Reference Range Interpretation Comments GONORRHEA, NAAT (test code TEST NOT PERFORMED = 57458) GC, AMPLIFIED, [id number] 00:00:00 Test Item Value Reference Range Interpretation Comments GONORRHEA, NAAT (test code TEST NOT PERFORMED = 72432) HIV AB/AG COMBO RFLX [id number] 00:00:00 Test Item Value Reference Range Interpretation Comments HIV 1/2 4TH GEN, RFLX CONF (test NON-REACTIVE code = 3514) ACUTE HEPATITIS [id number] 00:00:00 Test Item Value Reference Range Interpretation Comments HEPATITIS A IgM (test code = NON-REACTIVE 54982) HEPATITIS B CORE IgM (test code NON-REACTIVE = 4644) HEPATITIS B SURF AG (test code = NON-REACTIVE 3499) HEPATITIS C ANTIBODY (test code NON-REACTIVE = 4675) INTERPRETATION HEPATITIS A: (NOTE) (test code = 2552) INTERPRETATION HEPATITIS B: (NOTE) (test code = 94937) INTERPRETATION HEPATITIS C: (NOTE) (test code = 60372) CHLAMYDIA, AMPLIFIED, [id number] 00:00:00 Test Item Value Reference Range Interpretation Comments CHLAMYDIA, NAAT (test code TEST NOT PERFORMED = 09679) GC, AMPLIFIED, [id number] 00:00:00 Test Item Value Reference Range Interpretation Comments GONORRHEA, NAAT (test code TEST NOT PERFORMED = 05792) HIV AB/AG COMBO RFLX [id number] 00:00:00 Test Item Value Reference Range Interpretation Comments HIV 1/2 4TH GEN, RFLX CONF (test NON-REACTIVE code = 3514) HIV AB/AG COMBO RFLX [id number] 00:00:00 Test Item Value Reference Range Interpretation Comments HIV 1/2 4TH GEN, RFLX CONF (test NON-REACTIVE code = 3514) [id number] 00:00:00 Test Item Value Reference Range Interpretation Comments RPR RESULT (test code = NON-REACTIVE 3501) RPR TITER (test code = 3500) NOT INDIC. TITER [id number] 00:00:00 Test Item Value Reference Range Interpretation Comments RPR RESULT (test code = NON-REACTIVE 3501) RPR TITER (test code = 3500) NOT INDIC. TITER [id number] 00:00:00 Test Item Value Reference Range Interpretation Comments RPR RESULT (test code = NON-REACTIVE 3501) RPR TITER (test code = 3500) NOT INDIC. TITER [id number] 00:00:00 Test Item Value Reference Range Interpretation Comments RPR RESULT (test code = NON-REACTIVE 3501) RPR TITER (test code = 3500) NOT INDIC. TITER [id number] 00:00:00 Test Item Value Reference Range Interpretation Comments RPR RESULT (test code = NON-REACTIVE 3501) RPR TITER (test code = 3500) NOT INDIC. TITER CULTURE, [id number] 00:00:00 Test Item Value Reference Range Interpretation Comments CULTURE, URINE (test SPECIMEN NUMBER: code = 52423) [id number] CULTURE, [id number] 00:00:00 Test Item Value Reference Range Interpretation Comments CULTURE, URINE (test SPECIMEN NUMBER: code = 16022) [id number] CULTURE, [id number] 00:00:00 Test Item Value Reference Range Interpretation Comments CULTURE, URINE (test SPECIMEN NUMBER: code = 53564) [id number] HIV AB/AG COMBO RFLX [id number] 00:00:00 Test Item Value Reference Range Interpretation Comments HIV 1/2 4TH GEN, RFLX CONF (test NON-REACTIVE code = 3514) HIV AB/AG COMBO RFLX [id number] 00:00:00 Test Item Value Reference Range Interpretation Comments HIV 1/2 4TH GEN, RFLX CONF (test NON-REACTIVE code = 3514) [id number] 00:00:00 Test Item Value Reference Range Interpretation Comments RPR RESULT (test code = NON-REACTIVE 3501) RPR TITER (test code = 3500) NOT INDIC. TITER [id number] 00:00:00 Test Item Value Reference Range Interpretation Comments RPR RESULT (test code = NON-REACTIVE 3501) RPR TITER (test code = 3500) NOT INDIC. TITER [id number] 00:00:00 Test Item Value Reference Range Interpretation Comments RPR RESULT (test code = NON-REACTIVE 3501) RPR TITER (test code = 3500) NOT INDIC. TITER CHLAMYDIA, AMPLIFIED, [id number] 00:00:00 Test Item Value Reference Range Interpretation Comments CHLAMYDIA, NAAT (test code = 63117) NEGATIVE GC, AMPLIFIED, [id number] 00:00:00 Test Item Value Reference Range Interpretation Comments GONORRHEA, NAAT (test code = 56850) NEGATIVE HIV AB/AG COMBO RFLX [id number] 00:00:00 Test Item Value Reference Range Interpretation Comments HIV 1/2 4TH GEN, RFLX CONF (test NON-REACTIVE code = 3514) [id number] 00:00:00 Test Item Value Reference Range Interpretation Comments RPR RESULT (test code = NON-REACTIVE 3501) RPR TITER (test code = 3500) NOT INDIC. TITER [id number] 00:00:00 Test Item Value Reference Range Interpretation Comments RPR RESULT (test code = NON-REACTIVE 3501) RPR TITER (test code = 3500) NOT INDIC. TITER CHLAMYDIA, AMPLIFIED, [id number] 00:00:00 Test Item Value Reference Range Interpretation Comments CHLAMYDIA, NAAT (test code = 99527) NEGATIVE CHLAMYDIA, AMPLIFIED, [id number] 00:00:00 Test Item Value Reference Range Interpretation Comments CHLAMYDIA, NAAT (test code = 41819) NEGATIVE GC, AMPLIFIED, [id number] 00:00:00 Test Item Value Reference Range Interpretation Comments GONORRHEA, NAAT (test code = 16336) NEGATIVE GC, AMPLIFIED, [id number] 00:00:00 Test Item Value Reference Range Interpretation Comments GONORRHEA, NAAT (test code = 87581) NEGATIVE VAGINAL PATHOGENS DNA [id number] 00:00:00 Test Item Value Reference Range Interpretation Comments BEATA SPECIES (test code = ) NEGATIVE G. VAGINALIS (test code = 40805) NEGATIVE T. VAGINALIS (test code = 26404) NEGATIVE VAGINAL PATHOGENS DNA [id number] 00:00:00 Test Item Value Reference Range Interpretation Comments BEATA SPECIES (test code = ) NEGATIVE G. VAGINALIS (test code = 21878) NEGATIVE T. VAGINALIS (test code = ) NEGATIVE VAGINAL PATHOGENS DNA [id number] 00:00:00 Test Item Value Reference Range Interpretation Comments BEATA SPECIES (test code = ) NEGATIVE G. VAGINALIS (test code = ) NEGATIVE T. VAGINALIS (test code = ) NEGATIVE COMPREHENSIVE METABOLIC [id number] 00:00:00 Test Item Value Reference Range Interpretation Comments GLUCOSE (test code = 2217) 94 MG/DL BUN (test code = 2208) 11 MG/DL CREATININE (test code = 2214) 0.63 MG/DL eGFR AMER. (test code 140 ML/MIN/1.73 = 69032) eGFR NON- AMER. (test 120 ML/MIN/1.73 code = 13387) CALC BUN/CREAT (test code = 17 RATIO [...] code = 2219) 30 U/L COMPREHENSIVE METABOLIC [id number] 00:00:00 Test Item Value Reference Range Interpretation Comments GLUCOSE (test code = 2217) 94 MG/DL BUN (test code = 2208) 11 MG/DL CREATININE (test code = 2214) 0.63 MG/DL eGFR AMER. (test code 140 ML/MIN/1.73 = 17189) eGFR NON- AMER. (test 120 ML/MIN/1.73 code = 94036) CALC BUN/CREAT (test code = 17 RATIO [...] code = 2219) 30 U/L COMPREHENSIVE METABOLIC [id number] 00:00:00 Test Item Value Reference Range Interpretation Comments GLUCOSE (test code = 2217) 94 MG/DL BUN (test code = 2208) 11 MG/DL CREATININE (test code = 2214) 0.63 MG/DL eGFR AMER. (test code 140 ML/MIN/1.73 = 00537) eGFR NON- AMER. (test 120 ML/MIN/1.73 code = 29387) CALC BUN/CREAT (test code = 17 RATIO [...] = 2219) 30 U/L PAP TEST, THINPREP, [id number] 00:00:00 Test Item Value Reference Range Interpretation Comments SOURCE: (test code = Cervical/Endocervical 8001) SLIDES: (test code = 1 8011) LMP: (test code = 8021) 2020-09-03 SPECIMEN ADEQUACY: (NOTE) (test code = 54121) INTERPRETATION: (test NILM/NO EPITH. code = 15035) ABNORMALITY;SEE BELOW OTHER COMMENTS: (test (NOTE) code = 8081) FATS AND OILS LOADER: (test Katherin Ferrari, code = 8101) CT(ASCP)IAC LOCATION: (test code = (NOTE) 45567) CPT: (test code = 8140) (NOTE) PAP TEST, THINPREP, [id number] 00:00:00 Test Item Value Reference Range Interpretation Comments SOURCE: (test code = Cervical/Endocervical 8001) SLIDES: (test code = 1 8011) LMP: (test code = 8021) 2020-09-03 SPECIMEN ADEQUACY: (NOTE) (test code = 50635) INTERPRETATION: (test NILM/NO EPITH. code = 06069) ABNORMALITY;SEE BELOW OTHER COMMENTS: (test (NOTE) code = 8081) FATS AND OILS LOADER: (test Katherin Ferrari, code = 8101) CT(ASCP)IAC LOCATION: (test code = (NOTE) 65986) CPT: (test code = 8140) (NOTE) PAP TEST, THINPREP, [id number] 00:00:00 Test Item Value Reference Range Interpretation Comments SOURCE: (test code = Cervical/Endocervical 8001) SLIDES: (test code = 1 8011) LMP: (test code = 8021) 2020-09-03 SPECIMEN ADEQUACY: (NOTE) (test code = 22271) INTERPRETATION: (test NILM/NO EPITH. code = 03924) ABNORMALITY;SEE BELOW OTHER COMMENTS: (test (NOTE) code = 8081) FATS AND OILS LOADER: (test Katherin Ferrari, code = 8101) CT(ASCP)IAC LOCATION: (test code = (NOTE) 38883) CPT: (test code = 8140) (NOTE) [id number] 00:00:00 Test Item Value Reference Range Interpretation Comments RPR RESULT (test code = NON-REACTIVE 3501) RPR TITER (test code = 3500) NOT INDIC. TITER [id number] 00:00:00 Test Item Value Reference Range Interpretation Comments TESTOSTERONE (test code = 2830) 43 NG/DL [id number] 00:00:00 Test Item Value Reference Range Interpretation Comments TESTOSTERONE (test code = 2830) 43 NG/DL HPV HIGH RISK WITH GENOTYPE, [id number] 00:00:00 Test Item Value Reference Range Interpretation Comments HPV HIGH RISK INTERP (test code = NEGATIVE 74400) HPV 16 (test code = 40046) NEGATIVE HPV 18 (test code = 24607) NEGATIVE HPV, HR, OTHER GENOTYPES (test code NEGATIVE = 19360) HPV HIGH RISK WITH GENOTYPE, [id number] 00:00:00 Test Item Value Reference Range Interpretation Comments HPV HIGH RISK INTERP (test code = NEGATIVE 69474) HPV 16 (test code = 96022) NEGATIVE HPV 18 (test code = 18604) NEGATIVE HPV, HR, OTHER GENOTYPES (test code NEGATIVE = 28803) GC AND CHLAMYDIA AMPLIFIED, [id number] 00:00:00 Test Item Value Reference Range Interpretation Comments GONORRHEA, TMA (test code = 16629) NEGATIVE CHLAMYDIA, TMA (test code = 03975) NEGATIVE FSH + LH [id number] 00:00:00 Test Item Value Reference Range Interpretation Comments FOLLICLE STIM HORMONE (test code = 7.0 IU/L 2700) LUTEINIZING HORMONE (test code = 12.1 IU/L 2776) FSH + LH [id number] 00:00:00 Test Item Value Reference Range Interpretation Comments FOLLICLE STIM HORMONE (test code = 7.0 IU/L 2700) LUTEINIZING HORMONE (test code = 12.1 IU/L 2776) [id number] 00:00:00 Test Item Value Reference Range Interpretation Comments PROLACTIN (test code = 2800) 12.5 NG/ML [id number] 00:00:00 Test Item Value Reference Range Interpretation Comments PROLACTIN (test code = 2800) 12.5 NG/ML [id number] 00:00:00 Test Item Value Reference Range Interpretation Comments ESTRADIOL (test code = 2505) 39.3 PG/ML [id number] 00:00:00 Test Item Value Reference Range Interpretation Comments ESTRADIOL (test code = 2505) 39.3 PG/ML [id number] 00:00:00 Test Item Value Reference Range Interpretation Comments ESTRADIOL (test code = 2505) 39.3 PG/ML [id number] 00:00:00 Test Item Value Reference Range Interpretation Comments RPR RESULT (test code = NON-REACTIVE 3501) RPR TITER (test code = 3500) NOT INDIC. TITER [id number] 00:00:00 Test Item Value Reference Range Interpretation Comments RPR RESULT (test code = NON-REACTIVE 3501) RPR TITER (test code = 3500) NOT INDIC. TITER [id number] 00:00:00 Test Item Value Reference Range Interpretation Comments TESTOSTERONE (test code = 2830) 43 NG/DL HPV HIGH RISK WITH GENOTYPE, [id number] 00:00:00 Test Item Value Reference Range Interpretation Comments HPV HIGH RISK INTERP (test code = NEGATIVE 52746) HPV 16 (test code = 13410) NEGATIVE HPV 18 (test code = 37779) NEGATIVE HPV, HR, OTHER GENOTYPES (test code NEGATIVE = 40275) FSH + LH [id number] 00:00:00 Test Item Value Reference Range Interpretation Comments FOLLICLE STIM HORMONE (test code = 7.0 IU/L 2700) LUTEINIZING HORMONE (test code = 12.1 IU/L 2776) [id number] 00:00:00 Test Item Value Reference Range Interpretation Comments PROLACTIN (test code = 2800) 12.5 NG/ML [id number] 00:00:00 Test Item Value Reference Range Interpretation Comments ESTRADIOL (test code = 2505) 39.3 PG/ML [id number] 00:00:00 Test Item Value Reference Range Interpretation Comments ESTRADIOL (test code = 2505) 39.3 PG/ML HIV AB/AG COMBO RFLX [id number] 00:00:00 Test Item Value Reference Range Interpretation Comments HIV 1/2 4TH GEN, RFLX CONF (test NON-REACTIVE code = 3514) HIV AB/AG COMBO RFLX [id number] 00:00:00 Test Item Value Reference Range Interpretation Comments HIV 1/2 4TH GEN, RFLX CONF (test NON-REACTIVE code = 3514) GC AND CHLAMYDIA AMPLIFIED, [id number] 00:00:00 Test Item Value Reference Range Interpretation Comments GONORRHEA, TMA (test code = 28304) NEGATIVE CHLAMYDIA, TMA (test code = 29194) NEGATIVE GC AND CHLAMYDIA AMPLIFIED, [id number] 00:00:00 Test Item Value Reference Range Interpretation Comments GONORRHEA, TMA (test code = 64774) NEGATIVE CHLAMYDIA, TMA (test code = 95968) NEGATIVE [id number] 00:00:00 Test Item Value Reference Range Interpretation Comments RPR RESULT (test code = NON-REACTIVE 3501) RPR TITER (test code = 3500) NOT INDIC. TITER [id number] 00:00:00 Test Item Value Reference Range Interpretation Comments RPR RESULT (test code = NON-REACTIVE 3501) RPR TITER (test code = 3500) NOT INDIC. TITER HIV AB/AG COMBO RFLX [id number] 00:00:00 Test Item Value Reference Range Interpretation Comments HIV 1/2 4TH GEN, RFLX CONF (test NON-REACTIVE code = 3514) VAGINAL PATHOGENS DNA [id number] 00:00:00 Test Item Value Reference Range Interpretation Comments BEATA SPECIES (test code = ) NEGATIVE G. VAGINALIS (test code = 15893) NEGATIVE T. VAGINALIS (test code = 74723) POSITIVE VAGINAL PATHOGENS DNA [id number] 00:00:00 Test Item Value Reference Range Interpretation Comments BEATA SPECIES (test code = 76729) NEGATIVE G. VAGINALIS (test code = 27277) NEGATIVE T. VAGINALIS (test code = 56845) POSITIVE VAGINAL PATHOGENS DNA [id number] 00:00:00 Test Item Value Reference Range Interpretation Comments BEATA SPECIES (test code = 25091) NEGATIVE G. VAGINALIS (test code = 12571) NEGATIVE T. VAGINALIS (test code = 94682) POSITIVE
--- NOTE | 2022-05-11 23:07 | EDPHYS ---
Physician Documentation [facility] Name: Carlyn Rodas Age: 31 yrs Sex: Female : 1990 Arrival Date: 05/11/2022 Time: 22:54 Bed Waiting Private MD: ED Physician Talha Delatorre HPI: 05/11 23:08 This 31 yrs old Female presents to ER via Unassigned with complaints of Covid. ms3 23:08 31-year-old female with past medical history of asthma presents for COVID evaluation. ms3 Patient states she was instructed to return to the emergency department for repeat testing. Patient states she has taken 2 home COVID test today that were negative. Patient denies fevers, chills. Patient endorses cough. Patient denies pain at this time.. 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 - Social history:: Smoking status: Patient denies any tobacco usage or history of. ROS: 23:08 Constitutional: Negative for fever, and chills. Neck: Negative for injury, pain, and ms3 swelling, Cardiovascular: Negative for chest pain, and palpitations. 23:08 Back: Negative for injury and pain, MS/Extremity: Negative for injury and deformity, Skin: Negative for injury, rash, and discoloration, Neuro: Negative for headache, weakness, numbness, tingling. 23:08 Respiratory: Positive for cough. 23:08 All other systems are negative. Exam: 23:08 Constitutional: This is a well developed, well nourished patient who is awake, alert, ms3 and in no acute distress. Neck: Trachea midline, no cervical lymphadenopathy. Supple, full range of motion without nuchal rigidity, or vertebral point tenderness. No Meningismus. Chest/axilla: Normal chest wall appearance and motion. Nontender with no deformity. Cardiovascular: Regular rate and rhythm with a normal S1 and S2. No gallops, murmurs, or rubs. Normal PMI, no JVD. No pulse deficits. Respiratory: Lungs have equal breath sounds bilaterally, clear to auscultation and percussion. No rales, rhonchi or wheezes noted. No increased work of breathing, no retractions or nasal flaring. Abdomen/GI: Soft, non-tender, with normal bowel sounds. No distension or tympany. No guarding or rebound. No evidence of tenderness throughout. Skin: Warm, dry with normal turgor. Normal color with no rashes, no lesions, and no evidence of cellulitis. MS/ Extremity: Pulses equal, no cyanosis. Neurovascular intact. Full, normal range of motion. Neuro: Awake and alert, GCS 15, oriented to person, place, time, and situation. Cranial nerves II-XII grossly intact. Motor strength 5/5 in all extremities. Sensory grossly intact. Cerebellar exam normal. Normal gait. Vital Signs: 23:20 BP 104 / 63; Pulse 80; Resp 18 S; Temp 97.3(TE); Pulse Ox 99% on R/A; Weight 74.84 kg as6 (R); Height 4 ft. 11 in. (149.86 cm) (R); Pain 0/10; 23:20 Body Mass Index 33.33 (74.84 kg, 149.86 cm) as6 MDM: 23:06 Patient medically screened. ms3 23:08 Differential Diagnosis: Bronchitis Upper Respiratory Infection Other COVID. Data ms3 reviewed: and as a result, I will discharge patient. Counseling: I had a detailed discussion with the patient and/or guardian regarding: the historical points, exam findings, and any diagnostic results supporting the discharge/admit diagnosis, the need for outpatient follow up, to return to the emergency department if symptoms worsen or persist or if there are any questions or concerns that arise at home. Special discussion: I discussed with the patient/guardian in detail that at this point there is no indication for admission to the hospital. It is understood, however, that if the symptoms persist or worsen the patient needs to return immediately for re-evaluation. Administered Medications: No medications were administered Disposition Summary: 05/11/22 23:06 Discharge Ordered Location: Home ms3 Condition: Stable ms3 Diagnosis - SARS-associated coronavirus as the cause of diseases classified elsewhere ms3 - Cough ms3 Followup: ms3 - With: Regino Chester, DO - When: 2 - 3 days - Reason: Re-evaluation by your physician Discharge Instructions: - Discharge Summary Sheet ms3 - COVID-19 ms3 - Viral Illness, Adult ms3 - COVID-19: Quarantine vs. Isolation - [facility] ms3 Forms: - Medication Reconciliation Form ms3 - Thank You Letter ms3 - Antibiotic Education ms3 - Prescription Opioid Use ms3 Prescriptions: - benzonatate 200 mg Oral Capsule - take 1 capsule by ORAL route 3 times per day as needed; 20 capsule; Refills: 0, ms3 Product Selection Permitted Signatures: Talha Delatorre DO DO ms3 David Sahu, RN RN as6
--- NOTE | 2022-05-11 23:24 | ER ---
Nurse's Notes [facility] Name: Carlyn Rodas Age: 31 yrs Sex: Female : 1990 Arrival Date: 05/11/2022 Time: 22:54 Bed Waiting Private MD: Diagnosis: SARS-associated coronavirus as the cause of diseases classified elsewhere;Cough Presentation: 05/11 23:20 Chief complaint: Patient states: "I tested positive for COVID on and I just as6 wanted to retest to see if I was still positive". Coronavirus screen: At this time, the client does not indicate any symptoms associated with coronavirus-19. Ebola Screen: No symptoms or risks identified at this time. Initial Sepsis Screen: Does the patient meet any 2 criteria? No. Patient's initial sepsis screen is negative. Does the patient have a suspected source of infection? No. Patient's initial sepsis screen is negative. Risk Assessment: Do you want to hurt yourself or someone else? Patient reports no desire to harm self or others. Onset of symptoms was May 11, 2022. 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 - Social history:: Smoking status: Patient denies any tobacco usage or history of. Screenin:23 Abuse screen: Denies threats or abuse. Denies injuries from another. Nutritional as6 screening: No deficits noted. Tuberculosis screening: No symptoms or risk factors identified. Fall Risk None identified. Assessment: 23:22 General: Appears in no apparent distress. Behavior is calm, cooperative. Pain: Denies as6 pain. Neuro: Level of Consciousness is awake, alert. Respiratory: Reports cough that is Respiratory effort is even, unlabored. Vital Signs: 23:20 BP 104 / 63; Pulse 80; Resp 18 S; Temp 97.3(TE); Pulse Ox 99% on R/A; Weight 74.84 kg as6 (R); Height 4 ft. 11 in. (149.86 cm) (R); Pain 0/10; 23:20 Body Mass Index 33.33 (74.84 kg, 149.86 cm) as6 ED Course: 22:54 Patient arrived in ED. ja2 22:56 Talha Delatorre DO is Attending Physician. ms3 23:06 Regino Chester DO is Referral Physician. ms3 23:22 Triage completed. as6 23:22 Arm band placed on. as6 23:23 Patient has correct armband on for positive identification. as6 23:23 No provider procedures requiring assistance completed. Patient did not have IV access as6 during this emergency room visit. Administered Medications: No medications were administered Medication: 23:23 VIS not applicable for this client. as6 Outcome: 23:06 Discharge ordered by . ms3 23:23 Discharged to home ambulatory. as6 23:23 Condition: stable 23:23 Discharge instructions given to patient, Instructed on discharge instructions, follow up and referral plans. Demonstrated understanding of instructions, follow-up care. 23:23 Patient left the ED. as6 Signatures: Talha Delatorre DO DO ms3 ArsalanGiulia ja2 David Sahu, RN RN as6
[2022-05-13 08:38] VITALS: BP 104/63; TEMP 97.3; O2SAT 99
== END 2022-05-11 23:23 | disposition home or self-care (01) ==
LOC: ER 22:51
DX: U07.1 COVID-19 (principal)
CPT/HCPCS: 99281

== ENCOUNTER 2022-07-23 20:12 | Emergency (ER) | payer BC ==
--- OUTSIDE RECORDS SUMMARY | 2022-07-23 20:16 | XMS REPORT | Continuity of Care Document ---
:1990 Author Organization [facility] t Address [address] [place] [address] [address]. [address] [place] [address] Care Team Providers Name Role Phone Rey Le Primary Care Physician [phone] Problems This patient has no known problems. [...] Goal Plan of Care Note [code = 47063-9] Goal Plan of Care Note [code = 11315-3] Goal Plan of Care Note [code = 25913-2] Goal Plan of Care Note [code = 43670-4] Goal Plan of Care Note [code = 97757-5] Goal Plan of Care Note [code = 07045-1] Goal Plan of Care Note [code = 82072-7] Goal Plan of Care Note [code = 64468-7] Goal Plan of Care Note [code = 15402-5] Goal Plan of Care Note [code = 81206-6] Goal Plan of Care Note [code = 55064-0] Goal Plan of Care Note [code = 50846-5] Goal Plan of Care Note [code = 91917-8] Goal Plan of Care Note [code = 77671-5] Goal Plan of Care Note [code = 70916-8] Goal Plan of Care Note [code = 55811-4] Goal Plan of Care Note [code = 25567-3] Goal Plan of Care Note [code = 28823-4] Goal Plan of Care Note [code = 51263-1] Goal Plan of Care Note [code = 24428-1] Goal Plan of Care Note [code = 27082-4] Goal Plan of Care Note [code = 67403-5] Goal Plan of Care Note [code = 58801-9] Goal Plan of Care Note [code = 13650-2] Goal Plan of Care Note [code = 30570-5] Goal Plan of Care Note [code = 84288-5] Goal Plan of Care Note [code = 13460-7] Goal Plan of Care Note [code = 29227-3] Goal Plan of Care Note [code = 54883-8] Goal Plan of Care Note [code = 79782-7] Goal Plan of Care Note [code = 33664-0] Goal Plan of Care Note [code = 15334-6] Goal Plan of Care Note [code = 05471-5] Goal Plan of Care Note [code = 02371-1] Goal Plan of Care Note [code = 11185-6] Goal Plan of Care Note [code = 53608-4] Goal Plan of Care Note [code = 64961-8] Goal Plan of Care Note [code = 55315-3] Goal Plan of Care Note [code = 02695-7] Goal Plan of Care Note [code = 74461-1] Goal Plan of Care Note [code = 27593-2] Goal Plan of Care Note [code = 62471-8] Goal Plan of Care Note [code = 27699-3] Goal Plan of Care Note [code = 49384-5] Goal Plan of Care Note [code = 66796-9] Goal Plan of Care Note [code = 27609-2] Goal Plan of Care Note [code = 51024-4] Goal Plan of Care Note [code = 67745-1] Goal Plan of Care Note [code = 88383-7] Goal Plan of Care Note [code = 55020-1] Goal Plan of Care Note [code = 76429-6] Goal Plan of Care Note [code = 68424-4] Goal Plan of Care Note [code = 65161-1] Goal Plan of Care Note [code = 09996-9] Goal Plan of Care Note [code = 15032-9] Goal Plan of Care Note [code = 27763-2] Goal Plan of Care Note [code = 51785-5] Goal Plan of Care Note [code = 71158-4] Goal Plan of Care Note [code = 95882-0] Goal Plan of Care Note [code = 75898-1] Encounters Start End Encounter Admission Attending Care Care Encounter Source Date/Time Date/Time Type Type Clinicians Facility Department ID 2022-03-31 2022-03-31 Outpatient [id number] 00:00:00 00:00:00 Visit 4730-47fc [id number]-8 [id number] 2022-02-25 2022-02-25 Outpatient [id number] 00:00:00 00:00:00 Visit 27ac-49cc 7ac-49cc-8 -843d-[id number] [id number] 12cbff Results Test Description Test Time Test Comments Results Result Comments Source VAGINAL PATHOGENS DNA PANEL 2022-03-01 17:28:27 Test Item Value Reference Range Interpretation Comme nts BEATA SPECIES (test code = NEGATIVE NEGATIVE ) G. VAGINALIS (test code = POSITIVE NEGATIVE A ) T. VAGINALIS (test code = NEGATIVE NEGATIVE U NLESS OTHERWISE INDICATED, ALL ) TESTING PERFORM ED ATCLINICAL PATHOLOGY [facility]. [address] [place] [address] LABOR[address] DIRE CTOR: ASHLEY ZARAGOZA M.D. CLIA NUMBER [id number] [facility] [place] [id number] VAGINAL PATHOGENS DNA [id number] 00:00:00 Test Item Value Reference Range Interpretation Comments BEATA SPECIES (test code = ) NEGATIVE G. VAGINALIS (test code = 23411) POSITIVE T. VAGINALIS (test code = ) NEGATIVE VAGINAL PATHOGENS DNA [id number] 00:00:00 Test Item Value Reference Range Interpretation Comments BEATA SPECIES (test code = ) NEGATIVE G. VAGINALIS (test code = ) POSITIVE T. VAGINALIS (test code = ) NEGATIVE CULTURE, [id number] 11:55:32SPECIMEN NUMBER: [id number] CULTURE, URINE SPECIMEN NUMBER: [id number] SPECIMEN COMMENT: URINE SOURCE:URINE REPORT STATUS: FINAL FINAL REPORT: 02/28/2022 10-50,000 CFU/ML UROGENITAL TRENT PRESENT NO COMM ON PATHOGENSCULTURE, [id number] 00:00:00 Test Item Value Reference Range Interpretation Comments CULTURE, URINE (test SPECIMEN NUMBER: code = 11784) [id number] CULTURE, [id number] 00:00:00 Test Item Value Reference Range Interpretation Comments CULTURE, URINE (test SPECIMEN NUMBER: code = 46812) [id number] GC, AMPLIFIED, [id number] 00:00:00 Test Item Value Reference Range Interpretation Comments GONORRHEA, NAAT (test code = 26932) NEGATIVE GC, AMPLIFIED, [id number] 00:00:00 Test Item Value Reference Range Interpretation Comments GONORRHEA, NAAT (test code = 89708) NEGATIVE CHLAMYDIA, AMPLIFIED, [id number] 00:00:00 Test Item Value Reference Range Interpretation Comments CHLAMYDIA, NAAT (test code = 67985) NEGATIVE GC, AMPLIFIED, [id number] 00:00:00 Test Item Value Reference Range Interpretation Comments GONORRHEA, NAAT (test code = 72670) NEGATIVE CHLAMYDIA, AMPLIFIED, [id number] 00:00:00 Test Item Value Reference Range Interpretation Comments CHLAMYDIA, NAAT (test code = 18587) NEGATIVE CHLAMYDIA, AMPLIFIED, [id number] 00:00:00 Test Item Value Reference Range Interpretation Comments CHLAMYDIA, NAAT (test code = 07099) NEGATIVE HCG, [id number] 00:00:00 Test Item Value Reference Range Interpretation Comments HCG, QUANTITATIVE (test code = <5 MIU/ML 2506) HCG, [id number] 00:00:00 Test Item Value Reference Range Interpretation Comments HCG, QUANTITATIVE (test code = <5 MIU/ML 2506) HCG, [id number] 00:00:00 Test Item Value Reference Range Interpretation Comments HCG, QUANTITATIVE (test code = <5 MIU/ML 2506) HCG, [id number] 00:00:00 Test Item Value Reference Range Interpretation Comments HCG, QUANTITATIVE (test code = <5 MIU/ML 2506) HCG, [id number] 00:00:00 Test Item Value Reference Range Interpretation Comments HCG, QUANTITATIVE (test code = <5 MIU/ML 2506) ACUTE HEPATITIS [id number] 00:00:00 Test Item Value Reference Range Interpretation Comments HEPATITIS A IgM (test code = NON-REACTIVE 06978) HEPATITIS B CORE IgM (test code NON-REACTIVE = 4644) HEPATITIS B SURF AG (test code = NON-REACTIVE 2739) HEPATITIS C ANTIBODY (test code NON-REACTIVE = 4675) INTERPRETATION HEPATITIS A: (NOTE) (test code = 2552) INTERPRETATION HEPATITIS B: (NOTE) (test code = 88104) INTERPRETATION HEPATITIS C: (NOTE) (test code = 40137) ACUTE HEPATITIS [id number] 00:00:00 Test Item Value Reference Range Interpretation Comments HEPATITIS A IgM (test code = NON-REACTIVE 20460) HEPATITIS B CORE IgM (test code NON-REACTIVE = 4644) HEPATITIS B SURF AG (test code = NON-REACTIVE 2739) HEPATITIS C ANTIBODY (test code NON-REACTIVE = 4675) INTERPRETATION HEPATITIS A: (NOTE) (test code = 2552) INTERPRETATION HEPATITIS B: (NOTE) (test code = 68096) INTERPRETATION HEPATITIS C: (NOTE) (test code = 78482) CHLAMYDIA, AMPLIFIED, [id number] 00:00:00 Test Item Value Reference Range Interpretation Comments CHLAMYDIA, NAAT (test code TEST NOT PERFORMED = 80510) CHLAMYDIA, AMPLIFIED, [id number] 00:00:00 Test Item Value Reference Range Interpretation Comments CHLAMYDIA, NAAT (test code TEST NOT PERFORMED = 66899) GC, AMPLIFIED, [id number] 00:00:00 Test Item Value Reference Range Interpretation Comments GONORRHEA, NAAT (test code TEST NOT PERFORMED = 81041) GC, AMPLIFIED, [id number] 00:00:00 Test Item Value Reference Range Interpretation Comments GONORRHEA, NAAT (test code TEST NOT PERFORMED = 13704) HIV AB/AG COMBO RFLX [id number] 00:00:00 Test Item Value Reference Range Interpretation Comments HIV 1/2 4TH GEN, RFLX CONF (test NON-REACTIVE code = 3514) ACUTE HEPATITIS [id number] 00:00:00 Test Item Value Reference Range Interpretation Comments HEPATITIS A IgM (test code = NON-REACTIVE 02197) HEPATITIS B CORE IgM (test code NON-REACTIVE = 4644) HEPATITIS B SURF AG (test code = NON-REACTIVE 0379) HEPATITIS C ANTIBODY (test code NON-REACTIVE = 4675) INTERPRETATION HEPATITIS A: (NOTE) (test code = 2552) INTERPRETATION HEPATITIS B: (NOTE) (test code = 58004) INTERPRETATION HEPATITIS C: (NOTE) (test code = 70806) CHLAMYDIA, AMPLIFIED, [id number] 00:00:00 Test Item Value Reference Range Interpretation Comments CHLAMYDIA, NAAT (test code TEST NOT PERFORMED = 36851) GC, AMPLIFIED, [id number] 00:00:00 Test Item Value Reference Range Interpretation Comments GONORRHEA, NAAT (test code TEST NOT PERFORMED = 41068) HIV AB/AG COMBO RFLX [id number] 00:00:00 Test Item Value Reference Range Interpretation Comments HIV 1/2 4TH GEN, RFLX CONF (test NON-REACTIVE code = 3514) HIV AB/AG COMBO RFLX [id number] 00:00:00 Test Item Value Reference Range Interpretation Comments HIV 1/2 4TH GEN, RFLX CONF (test NON-REACTIVE code = 3514) [id number] 00:00:00 Test Item Value Reference Range Interpretation Comments RPR RESULT (test code = NON-REACTIVE 3501) RPR TITER (test code = 3500) NOT INDIC. TITER [id number] 00:00:00 Test Item Value Reference Range Interpretation Comments RPR RESULT (test code = NON-REACTIVE 3501) RPR TITER (test code = 3500) NOT INDIC. TITER [id number] 00:00:00 Test Item Value Reference Range Interpretation Comments RPR RESULT (test code = NON-REACTIVE 3501) RPR TITER (test code = 3500) NOT INDIC. TITER [id number] 00:00:00 Test Item Value Reference Range Interpretation Comments RPR RESULT (test code = NON-REACTIVE 3501) RPR TITER (test code = 3500) NOT INDIC. TITER [id number] 00:00:00 Test Item Value Reference Range Interpretation Comments RPR RESULT (test code = NON-REACTIVE 3501) RPR TITER (test code = 3500) NOT INDIC. TITER CULTURE, [id number] 00:00:00 Test Item Value Reference Range Interpretation Comments CULTURE, URINE (test SPECIMEN NUMBER: code = 82327) [id number] CULTURE, [id number] 00:00:00 Test Item Value Reference Range Interpretation Comments CULTURE, URINE (test SPECIMEN NUMBER: code = 33924) [id number] CULTURE, [id number] 00:00:00 Test Item Value Reference Range Interpretation Comments CULTURE, URINE (test SPECIMEN NUMBER: code = 03850) [id number] HIV AB/AG COMBO RFLX [id number] 00:00:00 Test Item Value Reference Range Interpretation Comments HIV 1/2 4TH GEN, RFLX CONF (test NON-REACTIVE code = 3514) HIV AB/AG COMBO RFLX [id number] 00:00:00 Test Item Value Reference Range Interpretation Comments HIV 1/2 4TH GEN, RFLX CONF (test NON-REACTIVE code = 3514) [id number] 00:00:00 Test Item Value Reference Range Interpretation Comments RPR RESULT (test code = NON-REACTIVE 3501) RPR TITER (test code = 3500) NOT INDIC. TITER [id number] 00:00:00 Test Item Value Reference Range Interpretation Comments RPR RESULT (test code = NON-REACTIVE 3501) RPR TITER (test code = 3500) NOT INDIC. TITER [id number] 00:00:00 Test Item Value Reference Range Interpretation Comments RPR RESULT (test code = NON-REACTIVE 3501) RPR TITER (test code = 3500) NOT INDIC. TITER CHLAMYDIA, AMPLIFIED, [id number] 00:00:00 Test Item Value Reference Range Interpretation Comments CHLAMYDIA, NAAT (test code = 73049) NEGATIVE GC, AMPLIFIED, [id number] 00:00:00 Test Item Value Reference Range Interpretation Comments GONORRHEA, NAAT (test code = 74669) NEGATIVE HIV AB/AG COMBO RFLX [id number] 00:00:00 Test Item Value Reference Range Interpretation Comments HIV 1/2 4TH GEN, RFLX CONF (test NON-REACTIVE code = 3514) [id number] 00:00:00 Test Item Value Reference Range Interpretation Comments RPR RESULT (test code = NON-REACTIVE 3501) RPR TITER (test code = 3500) NOT INDIC. TITER [id number] 00:00:00 Test Item Value Reference Range Interpretation Comments RPR RESULT (test code = NON-REACTIVE 3501) RPR TITER (test code = 3500) NOT INDIC. TITER CHLAMYDIA, AMPLIFIED, [id number] 00:00:00 Test Item Value Reference Range Interpretation Comments CHLAMYDIA, NAAT (test code = 81866) NEGATIVE CHLAMYDIA, AMPLIFIED, [id number] 00:00:00 Test Item Value Reference Range Interpretation Comments CHLAMYDIA, NAAT (test code = 50609) NEGATIVE GC, AMPLIFIED, [id number] 00:00:00 Test Item Value Reference Range Interpretation Comments GONORRHEA, NAAT (test code = 16250) NEGATIVE GC, AMPLIFIED, [id number] 00:00:00 Test Item Value Reference Range Interpretation Comments GONORRHEA, NAAT (test code = 47487) NEGATIVE VAGINAL PATHOGENS DNA [id number] 00:00:00 Test Item Value Reference Range Interpretation Comments BEATA SPECIES (test code = ) NEGATIVE G. VAGINALIS (test code = 60607) NEGATIVE T. VAGINALIS (test code = 38082) NEGATIVE VAGINAL PATHOGENS DNA [id number] 00:00:00 Test Item Value Reference Range Interpretation Comments BEATA SPECIES (test code = ) NEGATIVE G. VAGINALIS (test code = 77272) NEGATIVE T. VAGINALIS (test code = ) NEGATIVE VAGINAL PATHOGENS DNA [id number] 00:00:00 Test Item Value Reference Range Interpretation Comments BEATA SPECIES (test code = ) NEGATIVE G. VAGINALIS (test code = ) NEGATIVE T. VAGINALIS (test code = ) NEGATIVE COMPREHENSIVE METABOLIC [id number] 00:00:00 Test Item Value Reference Range Interpretation Comments GLUCOSE (test code = 2217) 94 MG/DL BUN (test code = 2208) 11 MG/DL CREATININE (test code = 2214) 0.63 MG/DL eGFR AMER. (test code 140 ML/MIN/1.73 = 56492) eGFR NON- AMER. (test 120 ML/MIN/1.73 code = 54078) CALC BUN/CREAT (test code = 17 RATIO [...] code = 2219) 30 U/L COMPREHENSIVE METABOLIC [id number] 00:00:00 Test Item Value Reference Range Interpretation Comments GLUCOSE (test code = 2217) 94 MG/DL BUN (test code = 2208) 11 MG/DL CREATININE (test code = 2214) 0.63 MG/DL eGFR AMER. (test code 140 ML/MIN/1.73 = 50461) eGFR NON- AMER. (test 120 ML/MIN/1.73 code = 80542) CALC BUN/CREAT (test code = 17 RATIO [...] code = 2219) 30 U/L COMPREHENSIVE METABOLIC [id number] 00:00:00 Test Item Value Reference Range Interpretation Comments GLUCOSE (test code = 2217) 94 MG/DL BUN (test code = 2208) 11 MG/DL CREATININE (test code = 2214) 0.63 MG/DL eGFR AMER. (test code 140 ML/MIN/1.73 = 84465) eGFR NON- AMER. (test 120 ML/MIN/1.73 code = 15095) CALC BUN/CREAT (test code = 17 RATIO [...] = 2219) 30 U/L PAP TEST, THINPREP, [id number] 00:00:00 Test Item Value Reference Range Interpretation Comments SOURCE: (test code = Cervical/Endocervical 8001) SLIDES: (test code = 1 8011) LMP: (test code = 8021) 2020-09-03 SPECIMEN ADEQUACY: (NOTE) (test code = 83761) INTERPRETATION: (test NILM/NO EPITH. code = 67254) ABNORMALITY;SEE BELOW OTHER COMMENTS: (test (NOTE) code = 8081) WEIGHT COUNT OPERATOR: (test Katherin Ferrari, code = 8101) CT(ASCP)IAC LOCATION: (test code = (NOTE) 05668) CPT: (test code = 8140) (NOTE) PAP TEST, THINPREP, [id number] 00:00:00 Test Item Value Reference Range Interpretation Comments SOURCE: (test code = Cervical/Endocervical 8001) SLIDES: (test code = 1 8011) LMP: (test code = 8021) 2020-09-03 SPECIMEN ADEQUACY: (NOTE) (test code = 33090) INTERPRETATION: (test NILM/NO EPITH. code = 34222) ABNORMALITY;SEE BELOW OTHER COMMENTS: (test (NOTE) code = 8081) WEIGHT COUNT OPERATOR: (test Katherin Ferrari, code = 8101) CT(ASCP)IAC LOCATION: (test code = (NOTE) 81120) CPT: (test code = 8140) (NOTE) PAP TEST, THINPREP, [id number] 00:00:00 Test Item Value Reference Range Interpretation Comments SOURCE: (test code = Cervical/Endocervical 8001) SLIDES: (test code = 1 8011) LMP: (test code = 8021) 2020-09-03 SPECIMEN ADEQUACY: (NOTE) (test code = 14598) INTERPRETATION: (test NILM/NO EPITH. code = 51126) ABNORMALITY;SEE BELOW OTHER COMMENTS: (test (NOTE) code = 8081) WEIGHT COUNT OPERATOR: (test Katherin Ferrari, code = 8101) CT(ASCP)IAC LOCATION: (test code = (NOTE) 06169) CPT: (test code = 8140) (NOTE) [id number] 00:00:00 Test Item Value Reference Range Interpretation Comments RPR RESULT (test code = NON-REACTIVE 3501) RPR TITER (test code = 3500) NOT INDIC. TITER [id number] 00:00:00 Test Item Value Reference Range Interpretation Comments TESTOSTERONE (test code = 2830) 43 NG/DL [id number] 00:00:00 Test Item Value Reference Range Interpretation Comments TESTOSTERONE (test code = 2830) 43 NG/DL HPV HIGH RISK WITH GENOTYPE, [id number] 00:00:00 Test Item Value Reference Range Interpretation Comments HPV HIGH RISK INTERP (test code = NEGATIVE 93012) HPV 16 (test code = 67193) NEGATIVE HPV 18 (test code = 99575) NEGATIVE HPV, HR, OTHER GENOTYPES (test code NEGATIVE = 79677) HPV HIGH RISK WITH GENOTYPE, [id number] 00:00:00 Test Item Value Reference Range Interpretation Comments HPV HIGH RISK INTERP (test code = NEGATIVE 25725) HPV 16 (test code = 97787) NEGATIVE HPV 18 (test code = 25063) NEGATIVE HPV, HR, OTHER GENOTYPES (test code NEGATIVE = 77728) GC AND CHLAMYDIA AMPLIFIED, [id number] 00:00:00 Test Item Value Reference Range Interpretation Comments GONORRHEA, TMA (test code = 59903) NEGATIVE CHLAMYDIA, TMA (test code = 68160) NEGATIVE FSH + LH [id number] 00:00:00 Test Item Value Reference Range Interpretation Comments FOLLICLE STIM HORMONE (test code = 7.0 IU/L 2700) LUTEINIZING HORMONE (test code = 12.1 IU/L 2776) FSH + LH [id number] 00:00:00 Test Item Value Reference Range Interpretation Comments FOLLICLE STIM HORMONE (test code = 7.0 IU/L 2700) LUTEINIZING HORMONE (test code = 12.1 IU/L 2776) [id number] 00:00:00 Test Item Value Reference Range Interpretation Comments PROLACTIN (test code = 2800) 12.5 NG/ML [id number] 00:00:00 Test Item Value Reference Range Interpretation Comments PROLACTIN (test code = 2800) 12.5 NG/ML [id number] 00:00:00 Test Item Value Reference Range Interpretation Comments ESTRADIOL (test code = 2505) 39.3 PG/ML [id number] 00:00:00 Test Item Value Reference Range Interpretation Comments ESTRADIOL (test code = 2505) 39.3 PG/ML [id number] 00:00:00 Test Item Value Reference Range Interpretation Comments ESTRADIOL (test code = 2505) 39.3 PG/ML [id number] 00:00:00 Test Item Value Reference Range Interpretation Comments RPR RESULT (test code = NON-REACTIVE 3501) RPR TITER (test code = 3500) NOT INDIC. TITER [id number] 00:00:00 Test Item Value Reference Range Interpretation Comments RPR RESULT (test code = NON-REACTIVE 3501) RPR TITER (test code = 3500) NOT INDIC. TITER [id number] 00:00:00 Test Item Value Reference Range Interpretation Comments TESTOSTERONE (test code = 2830) 43 NG/DL HPV HIGH RISK WITH GENOTYPE, [id number] 00:00:00 Test Item Value Reference Range Interpretation Comments HPV HIGH RISK INTERP (test code = NEGATIVE 91798) HPV 16 (test code = 53464) NEGATIVE HPV 18 (test code = 97673) NEGATIVE HPV, HR, OTHER GENOTYPES (test code NEGATIVE = 77777) FSH + LH [id number] 00:00:00 Test Item Value Reference Range Interpretation Comments FOLLICLE STIM HORMONE (test code = 7.0 IU/L 2700) LUTEINIZING HORMONE (test code = 12.1 IU/L 2776) [id number] 00:00:00 Test Item Value Reference Range Interpretation Comments PROLACTIN (test code = 2800) 12.5 NG/ML [id number] 00:00:00 Test Item Value Reference Range Interpretation Comments ESTRADIOL (test code = 2505) 39.3 PG/ML [id number] 00:00:00 Test Item Value Reference Range Interpretation Comments ESTRADIOL (test code = 2505) 39.3 PG/ML HIV AB/AG COMBO RFLX [id number] 00:00:00 Test Item Value Reference Range Interpretation Comments HIV 1/2 4TH GEN, RFLX CONF (test NON-REACTIVE code = 3514) HIV AB/AG COMBO RFLX [id number] 00:00:00 Test Item Value Reference Range Interpretation Comments HIV 1/2 4TH GEN, RFLX CONF (test NON-REACTIVE code = 3514) GC AND CHLAMYDIA AMPLIFIED, [id number] 00:00:00 Test Item Value Reference Range Interpretation Comments GONORRHEA, TMA (test code = 98106) NEGATIVE CHLAMYDIA, TMA (test code = 46824) NEGATIVE GC AND CHLAMYDIA AMPLIFIED, [id number] 00:00:00 Test Item Value Reference Range Interpretation Comments GONORRHEA, TMA (test code = 08618) NEGATIVE CHLAMYDIA, TMA (test code = 91624) NEGATIVE [id number] 00:00:00 Test Item Value Reference Range Interpretation Comments RPR RESULT (test code = NON-REACTIVE 3501) RPR TITER (test code = 3500) NOT INDIC. TITER [id number] 00:00:00 Test Item Value Reference Range Interpretation Comments RPR RESULT (test code = NON-REACTIVE 3501) RPR TITER (test code = 3500) NOT INDIC. TITER HIV AB/AG COMBO RFLX [id number] 00:00:00 Test Item Value Reference Range Interpretation Comments HIV 1/2 4TH GEN, RFLX CONF (test NON-REACTIVE code = 3514) VAGINAL PATHOGENS DNA [id number] 00:00:00 Test Item Value Reference Range Interpretation Comments BEATA SPECIES (test code = ) NEGATIVE G. VAGINALIS (test code = 67917) NEGATIVE T. VAGINALIS (test code = 24583) POSITIVE VAGINAL PATHOGENS DNA [id number] 00:00:00 Test Item Value Reference Range Interpretation Comments BEATA SPECIES (test code = 40809) NEGATIVE G. VAGINALIS (test code = 47744) NEGATIVE T. VAGINALIS (test code = 45433) POSITIVE VAGINAL PATHOGENS DNA [id number] 00:00:00 Test Item Value Reference Range Interpretation Comments BEATA SPECIES (test code = 40375) NEGATIVE G. VAGINALIS (test code = 03435) NEGATIVE T. VAGINALIS (test code = 36006) POSITIVE
[2022-07-23] MEDS ORDERED: dexAMETHasone 10 MG/ML VIAL ONE (23:34)
[2022-07-23] MEDS ORDERED: KETOROLAC 30 MG/ML INJ ONE (23:34)
[2022-07-24 00:07] LABS: Urine Blood Negative (Negative); Urine Glucose Negative (Negative); Urine Protein Negative (Negative); Urine Specific Gravity 1.025 (1.005-1.030)
[2022-07-24 00:13] LABS: Urine Specific Gravity/Preg 1.025 (1.005-1.030)
--- NOTE | 2022-07-24 01:37 | ER ---
Nurse's Notes [facility] Name: Carlyn Rodas Age: 31 yrs Sex: Female : 1990 Arrival Date: 07/23/2022 Time: 20:16 Bed 16 Private MD: Diagnosis: Carpal tunnel syndrome, left upper limb;Carpal tunnel syndrome, right upper limb; state, incidental Presentation: 07/23 21:36 Chief complaint: Patient states: intermittent right arm pain and numbness xseveral kb3 months and intermittent left wrist and hand pain and numbness xseveral months. Coronavirus screen: Vaccine status: Patient reports receiving the 2nd dose of the covid vaccine. Client denies travel out of the [place] in the last 14 days. Ebola Screen: Patient negative for fever greater than or equal to 101.5 degrees Fahrenheit, and additional compatible Ebola Virus Disease symptoms Patient denies exposure to infectious person. Patient denies travel to an Ebola-affected area in the 21 days before illness onset. Initial Sepsis Screen: Does the patient meet any 2 criteria? No. Patient's initial sepsis screen is negative. Does the patient have a suspected source of infection? No. Patient's initial sepsis screen is negative. Risk Assessment: Do you want to hurt yourself or someone else? Patient reports no desire to harm self or others. Onset of symptoms is unknown. 21:36 Method Of Arrival: Ambulatory kb3 21:36 Acuity: FERNANDO 4 kb3 Triage Assessment: 21:41 General: Appears in no apparent distress. Behavior is calm, cooperative. Pain: kb3 Complains of pain in anterior aspect of right shoulder, right bicep, right antecubital area, dorsal aspect of right forearm and right wrist Pain does not radiate. 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 - Social history:: Smoking status: Patient denies any tobacco usage or history of. Screenin:45 Abuse screen: Denies threats or abuse. Nutritional screening: No deficits noted. ke1 Tuberculosis screening: No symptoms or risk factors identified. Fall Risk None identified. Assessment: 07/24 02:08 Reassessment: left before splint was given. ke1 Vital Signs: 07/23 21:36 BP 129 / 58; Pulse 84; Resp 20; Temp 98.5; Pulse Ox 100% ; Weight 74.84 kg; Height 4 kb3 ft. 11 in. (149.86 cm); Pain 10/10; 21:36 Body Mass Index 33.33 (74.84 kg, 149.86 cm) kb3 ED Course: 20:16 Patient arrived in ED. ja2 20:35 Schuyler Torres PA is PHCP. cp 20:35 Parker Albrecht MD is Attending Physician. cp 20:36 Talha Delatorre DO is Attending Physician. cp 21:41 Triage completed. kb3 21:41 Arm band placed on right wrist. kb3 23:29 Colton Garg RN is Primary Nurse. ke1 07/24 00:09 Placed in gown. Bed in low position. Call light in reach. ke1 01:35 XRAY Wrist LEFT 3 view In Process Unspecified. EDMS 01:35 XRAY Wrist RIGHT 3 view In Process Unspecified. EDMS 01:36 Angel Valenzuela MD is Referral Physician. cp Administered Medications: 07/23 23:45 Drug: Ketorolac 60 mg Route: IM; Site: left deltoid; ke1 07/24 00:30 Follow up: Response: No adverse reaction; Marked relief of symptoms ke1 07/23 23:45 Drug: Decadron (dexamethasone) 10 mg Route: IM; Site: right deltoid; ke1 07/24 00:53 Follow up: Response: Marked relief of symptoms ke1 Outcome: 01:37 Discharge ordered by . cp 02:08 Patient left the ED. ke1 Signatures: Dispatcher [employer] EDMS Schuyler Torres PA PA Giulia José ja2 Colton Garg, HERMILO RN ke1 Johanny Bird RN RN kb3
--- NOTE | 2022-07-24 01:37 | EDPHYS ---
Physician Documentation [facility] Name: Carlyn Rodas Age: 31 yrs Sex: Female : 1990 Arrival Date: 07/23/2022 Time: 20:16 Bed 16 Private MD: ED Physician Talha Delatorre HPI: 07/24 00:10 This 31 yrs old Female presents to ER via Ambulatory with complaints of cp Numbness Of Hand, Arm Pain. 00:10 Patient presents to ED with c/o bilateral wrist and hand pain, numbness of hands cp intermittently and pain radiates from right wrist proximal to right upper arm. Patient denies injury. RHD. Patient reports pain worse after work and has been occurring for months. 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 - Social history:: Smoking status: Patient denies any tobacco usage or history of. ROS: 07/24 00:15 Constitutional: Negative for body aches, chills, fever, poor PO intake. cp 00:15 Eyes: Negative for injury, pain, redness, and discharge. cp 00:15 Cardiovascular: Negative for chest pain. 00:15 Respiratory: Negative for cough, shortness of breath, wheezing. 00:15 Abdomen/GI: Negative for abdominal pain, nausea, vomiting, and diarrhea. 00:15 : Negative for urinary symptoms, vaginal bleeding, vaginal discharge. 00:15 MS/extremity: Positive for pain, paresthesias, of the right hand, left hand and right arm, Negative for injury or acute deformity, decreased range of motion. 00:15 Neuro: Negative for altered mental status, dizziness, headache. 00:15 All other systems are negative. Exam: 00:20 Constitutional: The patient appears in no acute distress, alert, awake, comfortable, cp non-toxic, well developed, well nourished. 00:20 Head/Face: Normocephalic, atraumatic. cp 00:20 Eyes: Periorbital structures: appear normal, Conjunctiva: normal, no exudate, no cp injection, Sclera: no appreciated abnormality, Lids and lashes: appear normal, bilaterally. 00:20 ENT: External ear(s): are unremarkable, Nose: is normal, Mouth: Lips: moist, Oral mucosa: moist, Posterior pharynx: Airway: no evidence of obstruction, patent. 00:20 Neck: C-spine: vertebral tenderness, is not appreciated, crepitus, is not appreciated, ROM/movement: is normal, is supple, without pain, no range of motions limitations. 00:20 Chest/axilla: Inspection: normal. 00:20 Cardiovascular: Rate: normal, Rhythm: regular, Pulses: Pulses are 2+ in right radial artery and left radial artery. 00:20 Respiratory: the patient does not display signs of respiratory distress, Respirations: normal, no use of accessory muscles, no retractions, labored breathing, is not present, Breath sounds: are clear throughout, no decreased breath sounds, no stridor, no wheezing. 00:20 Abdomen/GI: Inspection: abdomen appears normal, Palpation: abdomen is soft and non-tender, in all quadrants. 00:20 Back: pain, is absent, ROM is normal. 00:20 Musculoskeletal/extremity: Extremities: grossly normal except: tenderness and pain noted volar side bilateral wrist, full AROM, no swelling noted. 00:20 Skin: cellulitis, is not appreciated, no rash present. Vital Signs: 07/23 21:36 BP 129 / 58; Pulse 84; Resp 20; Temp 98.5; Pulse Ox 100% ; Weight 74.84 kg; Height 4 kb3 ft. 11 in. (149.86 cm); Pain 10/10; 21:36 Body Mass Index 33.33 (74.84 kg, 149.86 cm) kb3 MDM: 21:51 Patient medically screened. cp 23:00 Differential diagnosis: dislocation, closed fracture, tendonitis, neuropathy. cp 07/24 01:37 Data reviewed: vital signs, nurses notes, radiologic studies, plain films. cp 01:37 Counseling: I had a detailed discussion with the patient and/or guardian regarding: the cp historical points, exam findings, and any diagnostic results supporting the discharge/admit diagnosis, radiology results, the need for outpatient follow up, an OB/Gyne specialist, to return to the emergency department if symptoms worsen or persist or if there are any questions or concerns that arise at home. Response to treatment: the patient's symptoms have mildly improved after treatment, and as a result, I will discharge patient. 07/24 00:07 Order name: Urine Dipstick-Ancillary; Complete Time: 00:08 EDMS 07/24 00:09 Order name: Test, Serum; Complete Time: 01:28 cp 07/24 00:09 Order name: Urine --Ancillary (enter results); Complete Time: 01:07 ds4 07/24 01:07 Interpretation: Reviewed. cp 07/24 00:10 Order name: XRAY Wrist LEFT 3 view cp 07/24 00:10 Order name: XRAY Wrist RIGHT 3 view cp 07/23 21:42 Order name: Urine Dipstick-Ancillary (obtain specimen); Complete Time: 00:08 cp 07/23 21:42 Order name: Urine Test (obtain specimen); Complete Time: 00:08 cp 07/24 01:36 Order name: Wrist Splint cp 07/24 01:36 Order name: Wrist Splint cp Administered Medications: 07/23 23:45 Drug: Ketorolac 60 mg Route: IM; Site: left deltoid; ke1 07/24 00:30 Follow up: Response: No adverse reaction; Marked relief of symptoms ke1 07/23 23:45 Drug: Decadron (dexamethasone) 10 mg Route: IM; Site: right deltoid; ke1 07/24 00:53 Follow up: Response: Marked relief of symptoms ke1 Disposition: 02:30 Co-signature as Attending Physician, Talha ROSAS was immediately available onsite ms3 in the emergency department for consultation in the care of the patient. Disposition Summary: 07/24/22 01:37 Discharge Ordered Location: Home cp Problem: new cp Symptoms: have improved cp Condition: Stable cp Diagnosis - Carpal tunnel syndrome, left upper limb cp - Carpal tunnel syndrome, right upper limb cp - state, incidental cp Followup: cp - With: Angel Valenzuela MD - When: 1 week - Reason: Discharge Instructions: - Discharge Summary Sheet cp - Carpal Tunnel Syndrome cp - Wrist Splint, Adult cp - Preparing for cp - Eating Plan for Women cp - Warning Signs During cp Forms: - Medication Reconciliation Form cp - Thank You Letter cp - Antibiotic Education cp - Prescription Opioid Use cp Signatures: Dispatcher [employer] EDMS Schulyer Torres PA PA cp Sims, Marcus, DO DO ms3 Colton Garg, RN RN ke1 Johanny Bird RN RN kb3
[2022-07-24 02:14] VITALS: BP 129/58; TEMP 98.5; O2SAT 100
--- NOTE | 2022-07-24 19:02 | RAD REPORT ---
EXAM DESCRIPTION: RAD - Wrist Left 3 View - 07/24/2022 1:33 am CLINICAL HISTORY: 31 years Female, PAIN COMPARISON: None. FINDINGS: No fracture or dislocation. Joint spaces are preserved. Soft tissues are unremarkable. IMPRESSION: No acute osseous abnormality. Electronically signed by: Jose Tamez DO 07/24/2022 2:07 AM ASSEMBLER INSTALLER GENERAL Due to temporary technical issues with the PACS/Fluency reporting system, reports are being signed by the in house radiologists without review as a courtesy to insure prompt reporting. The interpreting radiologist is fully responsible for the content of the report.
--- NOTE | 2022-07-24 20:18 | RAD REPORT ---
EXAM DESCRIPTION: RAD - Wrist Right 3 View - 07/24/2022 1:33 am CLINICAL HISTORY: 31 years Female, PAIN COMPARISON: None. FINDINGS: No fracture or dislocation. Joint spaces are preserved. Soft tissues are unremarkable. IMPRESSION: No acute osseous abnormality. Electronically signed by: Jose Tamez DO 07/24/2022 2:07 AM LIBERAL ARTS TEACHER Due to temporary technical issues with the PACS/Fluency reporting system, reports are being signed by the in house radiologists without review as a courtesy to insure prompt reporting. The interpreting radiologist is fully responsible for the content of the report.
== END 2022-07-24 02:08 | disposition home or self-care (01) ==
LOC: ER 20:12
DX: G56.03 Carpal tunnel syndrome, bilateral upper limbs (principal); Z33.1 Pregnant state, incidental
CPT/HCPCS: 36415; 84703; 81025; 81003; 73110 ×2; 96372; 99283; J1100

== ENCOUNTER 2022-09-13 14:38 | Emergency (ER) | payer SELFPAY ==
--- OUTSIDE RECORDS SUMMARY | 2022-09-13 14:42 | XMS REPORT | Continuity of Care Document ---
:1990 Author Organization [facility] t Address [address] [place] [address] Dr. Goldman [address] [place] [address] Care Team Providers Name Role Phone Renetta SQUIRES, [facility] Primary Care Physician [phone] Problems This patient has no known problems. Allergies, Adverse Reactions, Alerts Allergy Allergy Status Severity Reaction(s) Onset Inactive Treating Comm ents Source Name Type Date Date Clinician Mesna - Propensi Active 2021- Intraven ty to 7-07 ous adverse 00:00: reaction 00 to drug Medications Ordered Filled Start Stop Current Ordering Indication Dosage Frequency Signature Comments Components Source Medication Medication Date Date Medication? Clinician (SIG) Name Name TAKE 1 No TABLET BY 1-18 MOUTH EVERY 00:00: 12 HOURS 00 FOR 30 DAYS AMOX-CLAV 2022-0 No 875-125 MG 1-18 TABLET 00:00: 00 DISSOLVE 1 2021-0 No 4 TABLET IN 8-10 MOUTH EVERY 00:00: 4 TO 6 00 HOURS TAKE 2021-0 No 300 CAPSULE BY 8-10 MOUTH EVERY 00:00: 8 HOURS FOR 00 10 DAYS USE 2021-0 No DIRECTED 8-10 TWICE DAILY 00:00: TO AFFECTED 00 AREA TAKE 1 2021-0 No 500 TABLET 8-10 TWICE DAILY 00:00: UNTIL 00 FINISHED. TAKE 1 2021-0 No TABLET BY 8-10 MOUTH EVERY 00:00: 12 HOURS 00 DISSOLVE 1 2021-0 No 4 TABLET IN 8-10 MOUTH EVERY 00:00: 4 TO 6 00 HOURS TAKE 1 2021-0 No 300 CAPSULE BY 8-10 MOUTH EVERY 00:00: 8 HOURS FOR 00 10 DAYS USE 2021-0 No DIRECTED 8-10 TWICE DAILY 00:00: TO AFFECTED 00 AREA TAKE 1 2021-0 No 500 TABLET 8-10 TWICE DAILY 00:00: UNTIL 00 FINISHED. TAKE 1 2-0 No TABLET BY 8-10 MOUTH EVERY 00:00: 12 HOURS 00 &lt 2022-0 No 20 7-12 00:00: 00 &lt 2022-0 No 20 7-12 00:00: 00 TAKE 1 2022-0 No 20 TABLET BY 7-08 MOUTH EVERY 00:00: 12 HOURS 00 FOR 30 DAYS DISSOLVE 1 2022-0 No 4 TABLET IN 7-08 MOUTH EVERY 00:00: 4 TO 6 00 HOURS TAKE 1 2022-0 No 20 TABLET BY 7-08 MOUTH EVERY 00:00: 12 HOURS 00 FOR 30 DAYS DISSOLVE 1 2022-0 No 4 TABLET IN 7-08 MOUTH EVERY 00:00: 4 TO 6 00 HOURS TAKE 1 2022-0 No 20 TABLET BY 7-08 MOUTH EVERY 00:00: 12 HOURS 00 FOR 30 DAYS DISSOLVE 1 2-0 No 4 TABLET IN 7-08 MOUTH EVERY 00:00: 4 TO 6 00 HOURS USE 2-0 No DIRECTED 7-07 TWICE DAILY 00:00: TO AFFECTED 00 AREA USE 2022-0 No DIRECTED 7-07 TWICE DAILY 00:00: TO AFFECTED 00 AREA USE 2022-0 No DIRECTED 7-07 TWICE DAILY 00:00: TO AFFECTED 00 AREA ibuprofen 2022-0 No 1mg 600 mg 2-11 tablet 00:00: 00 ibuprofen 2022-0 No 1mg 600 mg 2-11 tablet 00:00: 00 ibuprofen 2022-0 No 1mg 600 mg 2-11 tablet 00:00: 00 diclofenac 2021-0 No 1mg [...] 10 mg 7-28 tablet 00:00: 00 triamcinolo 2021-0 No 1% ne 7-17 acetonide 00:00: 0.1 [...] mg tablet 01-21 00:00: 00 Xulane 150 1-0 No 1mcg/24 mcg-35 2-19 hr mcg/24 hr 00:00: transdermal 00 patch Xulane 150 1-0 No 1mcg/24 mcg-35 2-19 hr mcg/24 hr 00:00: transdermal 00 patch Xulane 150 1-0 No 1mcg/24 mcg-35 2-19 hr mcg/24 hr 00:00: transdermal 00 patch Flagyl 500 1-0 No 1mg mg tablet -20 00:00: 00 Flagyl 500 1-0 No 1mg mg tablet -20 00:00: 00 Flagyl 500 1-0 No 1mg mg tablet -20 00:00: 00 Macrobid 1-0 No 1mg 100 mg 1-16 capsule 00:00: 00 Macrobid 1-0 No 1mg 100 mg 1-16 capsule 00:00: 00 Macrobid 1-0 No 1mg 100 mg 1-16 capsule 00:00: 00 Immunizations Ordered Immunization Filled Immunization Date Status Commen ts Source Name Name Red REDDID-Papo 2021-01-01 Completed Vaccine 00:00:00 Red COVID-19 2021-01-01 Completed Vaccine 00:00:00 Red REDDID-19 2021-01-01 Completed Vaccine 00:00:00 Red REDDID-19 2020-12-03 Completed Vaccine 00:00:00 Red REDDID-19 2020-12-03 Completed Vaccine 00:00:00 Red REDDID-19 2020-12-03 Completed Vaccine 00:00:00 Vital Signs Vital Name Observation Time Observation Value Comments Source BP Systolic 2022-09-07 17:31:00 96 mm[Hg] BP Diastolic 2022-09-07 17:31:00 52 mm[Hg] Weight Measured 2022-09-07 17:31:00 173.40 pounds Height Measured 2022-09-07 17:31:00 60.24 inches Body Temperature 2022-09-07 17:31:00 98.40 degrees Heart Rate 2022-09-07 17:31:00 91.00 /min Respiratory Rate 2022-09-07 17:31:00 18.00 /min BP Systolic 2022-07-27 13:15:00 117 mm[Hg] BP Diastolic 2022-07-27 13:15:00 77 mm[Hg] Weight Measured 2022-07-27 13:15:00 167.40 pounds Height Measured 2022-07-27 13:15:00 60.24 inches Body Temperature 2022-07-27 13:15:00 98.70 degrees Heart Rate 2022-07-27 13:15:00 77.00 /min Respiratory Rate 2022-07-27 13:15:00 BP Systolic 2022-03-31 11:19:00 107 mm[Hg] BP [...] Goal Plan of Care Note [code = 87429-7] Goal Plan of Care Note [code = 37191-1] Goal Plan of Care Note [code = 41159-1] Goal Plan of Care Note [code = 33364-6] Goal Plan of Care Note [code = 11328-7] Goal Plan of Care Note [code = 23787-7] Goal Plan of Care Note [code = 71778-1] Goal Plan of Care Note [code = 84678-7] Goal Plan of Care Note [code = 49818-1] Goal Plan of Care Note [code = 14228-3] Goal Plan of Care Note [code = 79037-8] Goal Plan of Care Note [code = 43543-7] Goal Plan of Care Note [code = 90481-2] Goal Plan of Care Note [code = 12400-4] Goal Plan of Care Note [code = 39809-7] Goal Plan of Care Note [code = 17064-8] Goal Plan of Care Note [code = 77952-1] Goal Plan of Care Note [code = 89863-3] Goal Plan of Care Note [code = 62666-8] Goal Plan of Care Note [code = 27876-5] Goal Plan of Care Note [code = 94308-9] Goal Plan of Care Note [code = 70846-8] Goal Plan of Care Note [code = 93393-2] Goal Plan of Care Note [code = 09599-6] Goal Plan of Care Note [code = 26550-3] Goal Plan of Care Note [code = 10705-9] Goal Plan of Care Note [code = 64202-8] Goal Plan of Care Note [code = 20153-4] Goal Plan of Care Note [code = 54544-7] Goal Plan of Care Note [code = 51968-6] Goal Plan of Care Note [code = 71841-3] Goal Plan of Care Note [code = 64378-2] Goal Plan of Care Note [code = 67231-8] Goal Plan of Care Note [code = 96982-7] Goal Plan of Care Note [code = 91086-6] Goal Plan of Care Note [code = 26632-5] Goal Plan of Care Note [code = 92321-0] Goal Plan of Care Note [code = 42418-5] Goal Plan of Care Note [code = 22446-6] Goal Plan of Care Note [code = 77655-0] Goal Plan of Care Note [code = 30688-1] Goal Plan of Care Note [code = 07235-9] Goal Plan of Care Note [code = 96049-0] Goal Plan of Care Note [code = 87783-1] Goal Plan of Care Note [code = 53435-8] Goal Plan of Care Note [code = 26233-5] Goal Plan of Care Note [code = 07786-0] Goal Plan of Care Note [code = 27152-3] Goal Plan of Care Note [code = 49236-8] Goal Plan of Care Note [code = 48481-9] Goal Plan of Care Note [code = 70579-5] Goal Plan of Care Note [code = 50109-0] Goal Plan of Care Note [code = 27285-9] Goal Plan of Care Note [code = 04300-8] Goal Plan of Care Note [code = 45778-7] Goal Plan of Care Note [code = 55320-5] Goal Plan of Care Note [code = 13207-4] Goal Plan of Care Note [code = 03690-7] Goal Plan of Care Note [code = 01069-9] Goal Plan of Care Note [code = 76366-0] Goal Plan of Care Note [code = 91210-1] Goal Plan of Care Note [code = 75664-5] Goal Plan of Care Note [code = 71445-7] Goal Plan of Care Note [code = 39163-9] Goal Plan of Care Note [code = 75904-0] Goal Plan of Care Note [code = 06199-3] Goal Plan of Care Note [code = 31083-3] Goal Plan of Care Note [code = 11785-9] Goal Plan of Care Note [code = 96378-7] Goal Plan of Care Note [code = 08732-0] Goal Plan of Care Note [code = 44195-4] Goal Plan of Care Note [code = 57460-6] Goal Plan of Care Note [code = 92845-7] Goal Plan of Care Note [code = 20177-1] Goal Plan of Care Note [code = 18414-2] Goal Plan of Care Note [code = 91753-1] Goal Plan of Care Note [code = 82270-7] Goal Plan of Care Note [code = 72880-8] Goal Plan of Care Note [code = 33399-3] Goal Plan of Care Note [code = 76062-8] Goal Plan of Care Note [code = 53217-2] Goal Plan of Care Note [code = 56096-2] Goal Plan of Care Note [code = 34264-9] Goal Plan of Care Note [code = 05640-1] Goal Plan of Care Note [code = 66426-4] Goal Plan of Care Note [code = 82080-2] Goal Plan of Care Note [code = 82522-5] Goal Plan of Care Note [code = 73803-5] Goal Plan of Care Note [code = 88194-1] Goal Plan of Care Note [code = 72600-8] Goal Plan of Care Note [code = 07811-7] Goal Plan of Care Note [code = 09282-5] Goal Plan of Care Note [code = 46296-7] Goal Plan of Care Note [code = 03070-1] Goal Plan of Care Note [code = 85023-0] Encounters Start End Encounter Admission Attending Care Care Encounter Source Date/Time Date/Time Type Type Clinicians Facility Department ID 2022-09-08 2022-09-08 Outpatient [facility] [id number] Serafin 13:23:15 13:23:15 0118 F Flako 2022-09-07 2022-09-07 Outpatient [facility] [id number] Serafin 17:08:57 17:08:57 0117 F Flako 2022-09-07 2022-09-07 Outpatient [id number]- [id number]-k 00:00:00 00:00:00 Visit oz82-7t37 q70-0a21-1 -8256-230 [id number] 68ccf8 2022-07-27 2022-07-27 Outpatient [facility] [id number] 022 Serafin 13:04:42 13:04:42 1206 F Flako 2022-03-31 2022-03-31 Outpatient [id number]- [id number] 00:00:00 00:00:00 Visit 4730-47fc 730-47fc-8 -8316-d09 [id number] 238cf7 2022-02-25 2022-02-25 Outpatient [id number]- [id number] 00:00:00 00:00:00 Visit 27ac-49cc 7ac-49cc-8 -843d-cb1 43d-cb15a8 [id number] 12cbff Results Test Description Test Time Test Comments Results Result Comments Source PAP TEST, THINPREP, IMAGED 2022-09-10 13:40:58 Test Item Value Reference Range Interpretation Comme nts SOURCE: (test code = Cervical/Endocervical 8001) SLIDES: (test code = 2 8011) LMP: (test code = 8021) 07/20/2022 SPECIMEN ADEQUACY: (test (NOTE) Un satisfactory (see code = 86060) Interpretation ). INTERPRETATION: (test UNSATISFACTORY; SEE BELOW A code = 56365) -------- UN SATISFACTORY FOR EVALUATION Insufficient cellularity (Ch argghulam deleted, please resubmit)------ -- OTHER COMMENTS: (test (NOTE) Glacia l acetic acid added due code = 8081) to blood/mucus in specimen. ON CALL PHARMACY TECHNICIAN: (test Sara De La Rosa code = 8101) QC TECHNOLOGIST: (test Jessy Rodriguez [facility](ASCP) IAC code = 8111) LOCATION: (test code = (NOTE) Speci mens processed and [address]) [facility] [address] [place] [address], Phone: , CLIA: [id number] CPT: (test code = 8140) (NOTE) 8817 5 UNLESS OTHERWISE INDICATED, COMP UTER AIDED AND CYTOTECHNOLOGIS T SCREENING PERFORMED. The Pap test is a screening test with an inherent, but l ow probability of error. Your patient should be reminded to consult you immediately if she experiences any suspicious signs or symptoms, regar dless of her Pap test result. An alternate report format c ontaining images or consolidated prior Pap history is avai lable as applicable. HPV HIGH RISK WITH GENOTYPE, [id number] 15:55:11 Test Item Value Reference Range Interpretation Comments HPV HIGH RISK INTERP NEGATIVE NEGATIVE (test code = 46490) HPV 16 (test code = NEGATIVE 57276) HPV 18 (test code = NEGATIVE 27476) HPV, HR, OTHER NEGATIVE Testing meth odology is GENOTYPES (test code real-ti me PCR utilizing = 13979) hydrolysis prob es with the [employer] system. The jaylen t individually de tects genotypes 16 an d 18, as well as the oth er 12 high risk types (31,33,35,39,45 ,51,52,56 ,58,59,66,68). The expected result is negative. A neg ative result does not rule out the presence of HPV not included in the genotype set, a low leve l of infection or sp ecimen sampling error. UNLESS OTHERWISE INDIC ATED, ALL TESTING PERFORM ED ATCLINICAL PATH [facility], [facility]. [address] [place] [address] LABORATORY DIRE CTOR: ASHLEY ROBERTS M.D. CLIA NUMBER [id number] CAP ACCREDITATI ON NO. VAGINAL PATHOGENS DNA [id number] 15:49:27 Test Item Value Reference Range Interpretation Comments CAITLYN SPECIES POSITIVE NEGATIVE A (test code = 81938) G. VAGINALIS POSITIVE NEGATIVE A (test code = 49587) T. VAGINALIS NEGATIVE NEGATIVE Note: The BD A ffirm VPIII (test code = Microbial Ident ification ) Testis a DNA pr obe test intended for us e in the detectionand id entification of Caitlyn spec ies, Gardnerellavagi nalis and Trichomonas vag inalis nucleic acid. U NLESS OTHERWISE INDIC ATED, ALL TESTING PERFORM ED ATCLINICAL PATHOLOGY [facility], [address] [address] LABORATOR Y DIRECTOR: ASHLEY ROBERTS M.D. CLIA NUMBER [id number] O. CT/NG, NAAT, [id number] 13:36:33 Test Item Value Reference Range Interpretation Comments CHLAMYDIA, NAAT, NEGATIVE NEGATIVE A negative result does THINPREP (test code not excl ude low level = 39091) infection, specimensamplin g error, or collection erro r. Testing is performed wi th the [employer] systems usingre al-time Polymerase Franck n Reaction (PCR) method. GONORRHEA, NAAT, NEGATIVE NEGATIVE A negative result does THINPREP (test code not excl ude low level = 76217) infection, specimensamplin g error, or collection erro r. Testing is performed wi th the [employer] 680 systems usingre al-time Polymerase Franck n Reaction (PCR) method. VAGINAL PATHOGENS DNA [id number] 17:28:27 Test Item Value Reference Range Interpretation Comments CAITLYN SPECIES (test NEGATIVE NEGATIVE code = ) G. VAGINALIS (test POSITIVE NEGATIVE A code = 58713) T. VAGINALIS (test NEGATIVE NEGATIVE UNLESS O THERWISE code = 17360) INDICATED, ALL TESTING PERFORMED [facility] PATHOLOGY [facility], [facility]. [address] [place] [address] 4 LABORATORY DIRE CTOR: ASHLEY ROBERTS M.D. CLIA NUMBER [id number] [place] [id number] VAGINAL PATHOGENS DNA [id number] 00:00:00 Test Item Value Reference Range Interpretation Comments CAITLYN SPECIES (test code = 47432) NEGATIVE G. VAGINALIS (test code = 92883) POSITIVE T. VAGINALIS (test code = 46943) NEGATIVE VAGINAL PATHOGENS DNA [id number] 00:00:00 Test Item Value Reference Range Interpretation Comments CAITLYN SPECIES (test code = 68811) NEGATIVE G. VAGINALIS (test code = 64990) POSITIVE T. VAGINALIS (test code = 96760) NEGATIVE VAGINAL PATHOGENS DNA [id number] 00:00:00 Test Item Value Reference Range Interpretation Comments CAITLYN SPECIES (test code = 91941) NEGATIVE G. VAGINALIS (test code = 56911) POSITIVE T. VAGINALIS (test code = 69900) NEGATIVE VAGINAL PATHOGENS DNA [id number] 00:00:00 Test Item Value Reference Range Interpretation Comments CAITLYN SPECIES (test code = 49136) NEGATIVE G. VAGINALIS (test code = 11947) POSITIVE T. VAGINALIS (test code = 73125) NEGATIVE CULTURE, [id number] 11:55:32SPECIMEN NUMBER: [id number] CULTURE, URINE SPECIMEN NUMBER: [id number] SPECIMEN COMMENT: URINE SOURCE:URINE REPORT STATUS: FINAL FINAL REPORT: 02/28/2022 10-50,000 CFU/ML UROGENITAL TRENT PRESENT NO COMM ON PATHOGENSCULTURE, [id number] 00:00:00 Test Item Value Reference Range Interpretation Comments CULTURE, URINE (test SPECIMEN NUMBER: code = 89255) [id number] CULTURE, [id number] 00:00:00 Test Item Value Reference Range Interpretation Comments CULTURE, URINE (test SPECIMEN NUMBER: code = 30053) [id number] CULTURE, [id number] 00:00:00 Test Item Value Reference Range Interpretation Comments CULTURE, URINE (test SPECIMEN NUMBER: code = 44060) [id number] CULTURE, [id number] 00:00:00 Test Item Value Reference Range Interpretation Comments CULTURE, URINE (test SPECIMEN NUMBER: code = 51250) [id number] CHLAMYDIA, AMPLIFIED, [id number] 00:00:00 Test Item Value Reference Range Interpretation Comments CHLAMYDIA, NAAT (test code = 51996) NEGATIVE CHLAMYDIA, AMPLIFIED, [id number] 00:00:00 Test Item Value Reference Range Interpretation Comments CHLAMYDIA, NAAT (test code = 28073) NEGATIVE GC, AMPLIFIED, [id number] 00:00:00 Test Item Value Reference Range Interpretation Comments GONORRHEA, NAAT (test code = 18532) NEGATIVE GC, AMPLIFIED, [id number] 00:00:00 Test Item Value Reference Range Interpretation Comments GONORRHEA, NAAT (test code = 38504) NEGATIVE CHLAMYDIA, AMPLIFIED, [id number] 00:00:00 Test Item Value Reference Range Interpretation Comments CHLAMYDIA, NAAT (test code = 14889) NEGATIVE CHLAMYDIA, AMPLIFIED, [id number] 00:00:00 Test Item Value Reference Range Interpretation Comments CHLAMYDIA, NAAT (test code = 79274) NEGATIVE CHLAMYDIA, AMPLIFIED, [id number] 00:00:00 Test Item Value Reference Range Interpretation Comments CHLAMYDIA, NAAT (test code = 16175) NEGATIVE GC, AMPLIFIED, [id number] 00:00:00 Test Item Value Reference Range Interpretation Comments GONORRHEA, NAAT (test code = 34669) NEGATIVE GC, AMPLIFIED, [id number] 00:00:00 Test Item Value Reference Range Interpretation Comments GONORRHEA, NAAT (test code = 32948) NEGATIVE GC, AMPLIFIED, [id number] 00:00:00 Test Item Value Reference Range Interpretation Comments GONORRHEA, NAAT (test code = 87037) NEGATIVE HCG, [id number] 00:00:00 Test Item Value Reference Range Interpretation Comments HCG, QUANTITATIVE (test code = <5 MIU/ML 2506) HCG, [id number] 00:00:00 Test Item Value Reference Range Interpretation Comments HCG, QUANTITATIVE (test code = <5 MIU/ML 2506) HCG, [id number] 00:00:00 Test Item Value Reference Range Interpretation Comments HCG, QUANTITATIVE (test code = <5 MIU/ML 2506) HCG, [id number] 00:00:00 Test Item Value Reference Range Interpretation Comments HCG, QUANTITATIVE (test code = <5 MIU/ML 2506) HCG, [id number] 00:00:00 Test Item Value Reference Range Interpretation Comments HCG, QUANTITATIVE (test code = <5 MIU/ML 2506) HCG, [id number] 00:00:00 Test Item Value Reference Range Interpretation Comments HCG, QUANTITATIVE (test code = <5 MIU/ML 2506) HCG, [id number] 00:00:00 Test Item Value Reference Range Interpretation Comments HCG, QUANTITATIVE (test code = <5 MIU/ML 2506) HCG, [id number] 00:00:00 Test Item Value Reference Range Interpretation Comments HCG, QUANTITATIVE (test code = <5 MIU/ML 2506) HIV AB/AG COMBO RFLX [id number] 00:00:00 Test Item Value Reference Range Interpretation Comments HIV 1/2 4TH GEN, RFLX CONF (test NON-REACTIVE code = 3514) HIV AB/AG COMBO RFLX [id number] 00:00:00 Test Item Value Reference Range Interpretation Comments HIV 1/2 4TH GEN, RFLX CONF (test NON-REACTIVE code = 3514) ACUTE HEPATITIS [id number] 00:00:00 Test Item Value Reference Range Interpretation Comments HEPATITIS A IgM (test code = NON-REACTIVE 76118) HEPATITIS B CORE IgM (test code NON-REACTIVE = 4644) HEPATITIS B SURF AG (test code = NON-REACTIVE 2739) HEPATITIS C ANTIBODY (test code NON-REACTIVE = 4675) INTERPRETATION HEPATITIS A: (NOTE) (test code = 2552) INTERPRETATION HEPATITIS B: (NOTE) (test code = 32002) INTERPRETATION HEPATITIS C: (NOTE) (test code = 08669) ACUTE HEPATITIS [id number] 00:00:00 Test Item Value Reference Range Interpretation Comments HEPATITIS A IgM (test code = NON-REACTIVE 61159) HEPATITIS B CORE IgM (test code NON-REACTIVE = 4644) HEPATITIS B SURF AG (test code = NON-REACTIVE 2739) HEPATITIS C ANTIBODY (test code NON-REACTIVE = 4675) INTERPRETATION HEPATITIS A: (NOTE) (test code = 2552) INTERPRETATION HEPATITIS B: (NOTE) (test code = 95400) INTERPRETATION HEPATITIS C: (NOTE) (test code = 96545) CHLAMYDIA, AMPLIFIED, [id number] 00:00:00 Test Item Value Reference Range Interpretation Comments CHLAMYDIA, NAAT (test code TEST NOT PERFORMED = 38177) CHLAMYDIA, AMPLIFIED, [id number] 00:00:00 Test Item Value Reference Range Interpretation Comments CHLAMYDIA, NAAT (test code TEST NOT PERFORMED = 95965) GC, AMPLIFIED, [id number] 00:00:00 Test Item Value Reference Range Interpretation Comments GONORRHEA, NAAT (test code TEST NOT PERFORMED = 24854) GC, AMPLIFIED, [id number] 00:00:00 Test Item Value Reference Range Interpretation Comments GONORRHEA, NAAT (test code TEST NOT PERFORMED = 80237) HIV AB/AG COMBO RFLX [id number] 00:00:00 Test Item Value Reference Range Interpretation Comments HIV 1/2 4TH GEN, RFLX CONF (test NON-REACTIVE code = 3514) HIV AB/AG COMBO RFLX [id number] 00:00:00 Test Item Value Reference Range Interpretation Comments HIV 1/2 4TH GEN, RFLX CONF (test NON-REACTIVE code = 3514) HIV AB/AG COMBO RFLX [id number] 00:00:00 Test Item Value Reference Range Interpretation Comments HIV 1/2 4TH GEN, RFLX CONF (test NON-REACTIVE code = 3514) ACUTE HEPATITIS [id number] 00:00:00 Test Item Value Reference Range Interpretation Comments HEPATITIS A IgM (test code = NON-REACTIVE 36913) HEPATITIS B CORE IgM (test code NON-REACTIVE = 4644) HEPATITIS B SURF AG (test code = NON-REACTIVE 2739) HEPATITIS C ANTIBODY (test code NON-REACTIVE = 4675) INTERPRETATION HEPATITIS A: (NOTE) (test code = 2552) INTERPRETATION HEPATITIS B: (NOTE) (test code = 02959) INTERPRETATION HEPATITIS C: (NOTE) (test code = 52935) ACUTE HEPATITIS [id number] 00:00:00 Test Item Value Reference Range Interpretation Comments HEPATITIS A IgM (test code = NON-REACTIVE 10081) HEPATITIS B CORE IgM (test code NON-REACTIVE = 4644) HEPATITIS B SURF AG (test code = NON-REACTIVE 2739) HEPATITIS C ANTIBODY (test code NON-REACTIVE = 4675) INTERPRETATION HEPATITIS A: (NOTE) (test code = 2552) INTERPRETATION HEPATITIS B: (NOTE) (test code = 05666) INTERPRETATION HEPATITIS C: (NOTE) (test code = 50825) ACUTE HEPATITIS [id number] 00:00:00 Test Item Value Reference Range Interpretation Comments HEPATITIS A IgM (test code = NON-REACTIVE 81901) HEPATITIS B CORE IgM (test code NON-REACTIVE = 4644) HEPATITIS B SURF AG (test code = NON-REACTIVE 2739) HEPATITIS C ANTIBODY (test code NON-REACTIVE = 4675) INTERPRETATION HEPATITIS A: (NOTE) (test code = 2552) INTERPRETATION HEPATITIS B: (NOTE) (test code = 73670) INTERPRETATION HEPATITIS C: (NOTE) (test code = 25678) CHLAMYDIA, AMPLIFIED, [id number] 00:00:00 Test Item Value Reference Range Interpretation Comments CHLAMYDIA, NAAT (test code TEST NOT PERFORMED = 92728) CHLAMYDIA, AMPLIFIED, [id number] 00:00:00 Test Item Value Reference Range Interpretation Comments CHLAMYDIA, NAAT (test code TEST NOT PERFORMED = 14112) GC, AMPLIFIED, [id number] 00:00:00 Test Item Value Reference Range Interpretation Comments GONORRHEA, NAAT (test code TEST NOT PERFORMED = 16400) GC, AMPLIFIED, [id number] 00:00:00 Test Item Value Reference Range Interpretation Comments GONORRHEA, NAAT (test code TEST NOT PERFORMED = 95321) CHLAMYDIA, AMPLIFIED, [id number] 00:00:00 Test Item Value Reference Range Interpretation Comments CHLAMYDIA, NAAT (test code TEST NOT PERFORMED = 36646) GC, AMPLIFIED, [id number] 00:00:00 Test Item Value Reference Range Interpretation Comments GONORRHEA, NAAT (test code TEST NOT PERFORMED = 46787) [id number] 00:00:00 Test Item Value Reference Range Interpretation Comments RPR RESULT (test code = NON-REACTIVE 3501) RPR TITER (test code = 3500) NOT INDIC. TITER [id number] 00:00:00 Test Item Value Reference Range Interpretation Comments RPR RESULT (test code = NON-REACTIVE 3501) RPR TITER (test code = 3500) NOT INDIC. TITER [id number] 00:00:00 Test Item Value Reference Range Interpretation Comments RPR RESULT (test code = NON-REACTIVE 3501) RPR TITER (test code = 3500) NOT INDIC. TITER [id number] 00:00:00 Test Item Value Reference Range Interpretation Comments RPR RESULT (test code = NON-REACTIVE 3501) RPR TITER (test code = 3500) NOT INDIC. TITER [id number] 00:00:00 Test Item Value Reference Range Interpretation Comments RPR RESULT (test code = NON-REACTIVE 3501) RPR TITER (test code = 3500) NOT INDIC. TITER [id number] 00:00:00 Test Item Value Reference Range Interpretation Comments RPR RESULT (test code = NON-REACTIVE 3501) RPR TITER (test code = 3500) NOT INDIC. TITER [id number] 00:00:00 Test Item Value Reference Range Interpretation Comments RPR RESULT (test code = NON-REACTIVE 3501) RPR TITER (test code = 3500) NOT INDIC. TITER [id number] 00:00:00 Test Item Value Reference Range Interpretation Comments RPR RESULT (test code = NON-REACTIVE 3501) RPR TITER (test code = 3500) NOT INDIC. TITER CULTURE, [id number] 00:00:00 Test Item Value Reference Range Interpretation Comments CULTURE, URINE (test SPECIMEN NUMBER: code = 04224) [id number] CULTURE, [id number] 00:00:00 Test Item Value Reference Range Interpretation Comments CULTURE, URINE (test SPECIMEN NUMBER: code = 86506) [id number] CULTURE, [id number] 00:00:00 Test Item Value Reference Range Interpretation Comments CULTURE, URINE (test SPECIMEN NUMBER: code = 57186) [id number] CULTURE, [id number] 00:00:00 Test Item Value Reference Range Interpretation Comments CULTURE, URINE (test SPECIMEN NUMBER: code = 04267) [id number] CULTURE, [id number] 00:00:00 Test Item Value Reference Range Interpretation Comments CULTURE, URINE (test SPECIMEN NUMBER: code = 39678) [id number] CHLAMYDIA, AMPLIFIED, [id number] 00:00:00 Test Item Value Reference Range Interpretation Comments CHLAMYDIA, NAAT (test code = 51527) NEGATIVE CHLAMYDIA, AMPLIFIED, [id number] 00:00:00 Test Item Value Reference Range Interpretation Comments CHLAMYDIA, NAAT (test code = 44170) NEGATIVE GC, AMPLIFIED, [id number] 00:00:00 Test Item Value Reference Range Interpretation Comments GONORRHEA, NAAT (test code = 04607) NEGATIVE GC, AMPLIFIED, [id number] 00:00:00 Test Item Value Reference Range Interpretation Comments GONORRHEA, NAAT (test code = 51030) NEGATIVE HIV AB/AG COMBO RFLX [id number] 00:00:00 Test Item Value Reference Range Interpretation Comments HIV 1/2 4TH GEN, RFLX CONF (test NON-REACTIVE code = 3514) HIV AB/AG COMBO RFLX [id number] 00:00:00 Test Item Value Reference Range Interpretation Comments HIV 1/2 4TH GEN, RFLX CONF (test NON-REACTIVE code = 3514) [id number] 00:00:00 Test Item Value Reference Range Interpretation Comments RPR RESULT (test code = NON-REACTIVE 3501) RPR TITER (test code = 3500) NOT INDIC. TITER [id number] 00:00:00 Test Item Value Reference Range Interpretation Comments RPR RESULT (test code = NON-REACTIVE 3501) RPR TITER (test code = 3500) NOT INDIC. TITER [id number] 00:00:00 Test Item Value Reference Range Interpretation Comments RPR RESULT (test code = NON-REACTIVE 3501) RPR TITER (test code = 3500) NOT INDIC. TITER CHLAMYDIA, AMPLIFIED, [id number] 00:00:00 Test Item Value Reference Range Interpretation Comments CHLAMYDIA, NAAT (test code = 15401) NEGATIVE CHLAMYDIA, AMPLIFIED, [id number] 00:00:00 Test Item Value Reference Range Interpretation Comments CHLAMYDIA, NAAT (test code = 39669) NEGATIVE CHLAMYDIA, AMPLIFIED, [id number] 00:00:00 Test Item Value Reference Range Interpretation Comments CHLAMYDIA, NAAT (test code = 24985) NEGATIVE GC, AMPLIFIED, [id number] 00:00:00 Test Item Value Reference Range Interpretation Comments GONORRHEA, NAAT (test code = 31114) NEGATIVE GC, AMPLIFIED, [id number] 00:00:00 Test Item Value Reference Range Interpretation Comments GONORRHEA, NAAT (test code = 48891) NEGATIVE HIV AB/AG COMBO RFLX [id number] 00:00:00 Test Item Value Reference Range Interpretation Comments HIV 1/2 4TH GEN, RFLX CONF (test NON-REACTIVE code = 3514) HIV AB/AG COMBO RFLX [id number] 00:00:00 Test Item Value Reference Range Interpretation Comments HIV 1/2 4TH GEN, RFLX CONF (test NON-REACTIVE code = 3514) [id number] 00:00:00 Test Item Value Reference Range Interpretation Comments RPR RESULT (test code = NON-REACTIVE 3501) RPR TITER (test code = 3500) NOT INDIC. TITER [id number] 00:00:00 Test Item Value Reference Range Interpretation Comments RPR RESULT (test code = NON-REACTIVE 3501) RPR TITER (test code = 3500) NOT INDIC. TITER [id number] 00:00:00 Test Item Value Reference Range Interpretation Comments RPR RESULT (test code = NON-REACTIVE 3501) RPR TITER (test code = 3500) NOT INDIC. TITER GC, AMPLIFIED, [id number] 00:00:00 Test Item Value Reference Range Interpretation Comments GONORRHEA, NAAT (test code = 66289) NEGATIVE HIV AB/AG COMBO RFLX [id number] 00:00:00 Test Item Value Reference Range Interpretation Comments HIV 1/2 4TH GEN, RFLX CONF (test NON-REACTIVE code = 3514) [id number] 00:00:00 Test Item Value Reference Range Interpretation Comments RPR RESULT (test code = NON-REACTIVE 3501) RPR TITER (test code = 3500) NOT INDIC. TITER [id number] 00:00:00 Test Item Value Reference Range Interpretation Comments RPR RESULT (test code = NON-REACTIVE 3501) RPR TITER (test code = 3500) NOT INDIC. TITER VAGINAL PATHOGENS DNA [id number] 00:00:00 Test Item Value Reference Range Interpretation Comments CAITLYN SPECIES (test code = 63929) NEGATIVE G. VAGINALIS (test code = ) NEGATIVE T. VAGINALIS (test code = ) NEGATIVE VAGINAL PATHOGENS DNA [id number] 00:00:00 Test Item Value Reference Range Interpretation Comments CAITLYN SPECIES (test code = 84714) NEGATIVE G. VAGINALIS (test code = 21407) NEGATIVE T. VAGINALIS (test code = 27711) NEGATIVE VAGINAL PATHOGENS DNA [id number] 00:00:00 Test Item Value Reference Range Interpretation Comments CAITLYN SPECIES (test code = 08394) NEGATIVE G. VAGINALIS (test code = 97416) NEGATIVE T. VAGINALIS (test code = 70841) NEGATIVE VAGINAL PATHOGENS DNA [id number] 00:00:00 Test Item Value Reference Range Interpretation Comments CAITLYN SPECIES (test code = 55512) NEGATIVE G. VAGINALIS (test code = 47653) NEGATIVE T. VAGINALIS (test code = 32637) NEGATIVE VAGINAL PATHOGENS DNA [id number] 00:00:00 Test Item Value Reference Range Interpretation Comments CAITLYN SPECIES (test code = 29038) NEGATIVE G. VAGINALIS (test code = 51690) NEGATIVE T. VAGINALIS (test code = 49871) NEGATIVE COMPREHENSIVE METABOLIC [id number] 00:00:00 Test Item Value Reference Range Interpretation Comments GLUCOSE (test code = 2217) 94 MG/DL BUN (test code = 2208) 11 MG/DL CREATININE (test code = 2214) 0.63 MG/DL eGFR AMER. (test code 140 ML/MIN/1.73 = 37277) eGFR NON- AMER. (test 120 ML/MIN/1.73 code = 30535) CALC BUN/CREAT (test code = 17 RATIO 2235) SODIUM (test code = 2231) 138 MEQ/L POTASSIUM (test code = 2228) 4.4 MEQ/L CHLORIDE (test code = 2215) 102 MEQ/L CARBON DIOXIDE (test code = 25 MEQ/L 6) CALCIUM (test code = 2209) 9.7 MG/DL [...] code = 2219) 30 U/L COMPREHENSIVE METABOLIC [id number] 00:00:00 Test Item Value Reference Range Interpretation Comments GLUCOSE (test code = 2217) 94 MG/DL BUN (test code = 2208) 11 MG/DL CREATININE (test code = 2214) 0.63 MG/DL eGFR AMER. (test code 140 ML/MIN/1.73 = 56695) eGFR NON- AMER. (test 120 ML/MIN/1.73 code = 96871) CALC BUN/CREAT (test code = 17 RATIO [...] A/G RATIO (test code = 1.6 RATIO 223) BILIRUBIN, TOTAL (test code = 0.3 MG/DL 2206) ALKALINE PHOSPHATASE (test 100 U/L code = 2204) AST (test code = 2218) 22 U/L ALT (test code = 2219) 30 U/L COMPREHENSIVE METABOLIC [id number] 00:00:00 Test Item Value Reference Range Interpretation Comments GLUCOSE (test code = 2217) 94 MG/DL BUN (test code = 2208) 11 MG/DL CREATININE (test code = 2214) 0.63 MG/DL eGFR AMER. (test code 140 ML/MIN/1.73 = 25424) eGFR NON- AMER. (test 120 ML/MIN/1.73 code = 91821) CALC BUN/CREAT (test code = 17 RATIO 2235) SODIUM (test code = 2231) 138 MEQ/L POTASSIUM (test code = 2228) 4.4 MEQ/L CHLORIDE (test code = 2215) 102 MEQ/L CARBON DIOXIDE (test code = 25 MEQ/L 220) CALCIUM (test code = 2209) 9.7 MG/DL PROTEIN, TOTAL (test code = 7.4 G/DL 2229) ALBUMIN (test code = 2201) 4.5 G/DL CALC GLOBULIN (test code = 2.9 G/DL 2240) CALC A/G RATIO (test code = 1.6 RATIO 2234) BILIRUBIN, TOTAL (test code = 0.3 MG/DL 2206) ALKALINE PHOSPHATASE (test 100 U/L code = 2204) AST (test code = 2218) 22 U/L ALT (test code = 2219) 30 U/L COMPREHENSIVE METABOLIC [id number] 00:00:00 Test Item Value Reference Range Interpretation Comments GLUCOSE (test code = 2217) 94 MG/DL BUN (test code = 2208) 11 MG/DL CREATININE (test code = 2214) 0.63 MG/DL eGFR AMER. (test code 140 ML/MIN/1.73 = 82710) eGFR NON- AMER. (test 120 ML/MIN/1.73 code = 34034) CALC BUN/CREAT (test code = 17 RATIO [...] code = 2219) 30 U/L COMPREHENSIVE METABOLIC [id number] 00:00:00 Test Item Value Reference Range Interpretation Comments GLUCOSE (test code = 2217) 94 MG/DL BUN (test code = 2208) 11 MG/DL CREATININE (test code = 2214) 0.63 MG/DL eGFR AMER. (test code 140 ML/MIN/1.73 = 67995) eGFR NON- AMER. (test 120 ML/MIN/1.73 code = 86622) CALC BUN/CREAT (test code = 17 RATIO 2234) SODIUM (test code = 2231) 138 MEQ/L [...] ALKALINE PHOSPHATASE (test 100 U/L code = 220) AST (test code = 2218) 22 U/L ALT (test code = 2219) 30 U/L PAP TEST, THINPREP, [id number] 00:00:00 Test Item Value Reference Range Interpretation Comments SOURCE: (test code = Cervical/Endocervical 8001) SLIDES: (test code = 1 8011) LMP: (test code = 8021) 2020-09-03 SPECIMEN ADEQUACY: (NOTE) (test code = 92680) INTERPRETATION: (test NILM/NO EPITH. code = 27698) ABNORMALITY;SEE BELOW OTHER COMMENTS: (test (NOTE) code = 8081) ON CALL PHARMACY TECHNICIAN: (test Katherin Ferrari, code = 8101) CT(ASCP)IAC LOCATION: (test code = (NOTE) 20794) CPT: (test code = 8140) (NOTE) PAP TEST, THINPREP, [id number] 00:00:00 Test Item Value Reference Range Interpretation Comments SOURCE: (test code = Cervical/Endocervical 8001) SLIDES: (test code = 1 8011) LMP: (test code = 8021) 2020-09-03 SPECIMEN ADEQUACY: (NOTE) (test code = 08963) INTERPRETATION: (test NILM/NO EPITH. code = 63559) ABNORMALITY;SEE BELOW OTHER COMMENTS: (test (NOTE) code = 8081) ON CALL PHARMACY TECHNICIAN: (test Katherin Ferrari, code = 8101) CT(ASCP)IAC LOCATION: (test code = (NOTE) 64005) CPT: (test code = 8140) (NOTE) PAP TEST, THINPREP, [id number] 00:00:00 Test Item Value Reference Range Interpretation Comments SOURCE: (test code = Cervical/Endocervical 8001) SLIDES: (test code = 1 8011) LMP: (test code = 8021) 2020-09-03 SPECIMEN ADEQUACY: (NOTE) (test code = 41868) INTERPRETATION: (test NILM/NO EPITH. code = 20442) ABNORMALITY;SEE BELOW OTHER COMMENTS: (test (NOTE) code = 8081) ON CALL PHARMACY TECHNICIAN: (test Katherin Ferrari, code = 8101) CT(ASCP)IAC LOCATION: (test code = (NOTE) 16002) CPT: (test code = 8140) (NOTE) PAP TEST, THINPREP, [id number] 00:00:00 Test Item Value Reference Range Interpretation Comments SOURCE: (test code = Cervical/Endocervical 8001) SLIDES: (test code = 1 8011) LMP: (test code = 8021) 2020-09-03 SPECIMEN ADEQUACY: (NOTE) (test code = 93088) INTERPRETATION: (test NILM/NO EPITH. code = 48426) ABNORMALITY;SEE BELOW OTHER COMMENTS: (test (NOTE) code = 8081) ON CALL PHARMACY TECHNICIAN: (test Katherin Ferrari, code = 8101) CT(ASCP)IAC LOCATION: (test code = (NOTE) 12633) CPT: (test code = 8140) (NOTE) PAP TEST, THINPREP, [id number] 00:00:00 Test Item Value Reference Range Interpretation Comments SOURCE: (test code = Cervical/Endocervical 8001) SLIDES: (test code = 1 8011) LMP: (test code = 8021) 2020-09-03 SPECIMEN ADEQUACY: (NOTE) (test code = 49965) INTERPRETATION: (test NILM/NO EPITH. code = 05318) ABNORMALITY;SEE BELOW OTHER COMMENTS: (test (NOTE) code = 8081) ON CALL PHARMACY TECHNICIAN: (test Katherin Ferrari, code = 8101) CT(ASCP)IAC LOCATION: (test code = (NOTE) 38414) CPT: (test code = 8140) (NOTE) HIV AB/AG COMBO RFLX [id number] 00:00:00 Test Item Value Reference Range Interpretation Comments HIV 1/2 4TH GEN, RFLX CONF (test NON-REACTIVE code = 3514) HIV AB/AG COMBO RFLX [id number] 00:00:00 Test Item Value Reference Range Interpretation Comments HIV 1/2 4TH GEN, RFLX CONF (test NON-REACTIVE code = 3514) GC AND CHLAMYDIA AMPLIFIED, [id number] 00:00:00 Test Item Value Reference Range Interpretation Comments GONORRHEA, TMA (test code = 42908) NEGATIVE CHLAMYDIA, TMA (test code = 68630) NEGATIVE GC AND CHLAMYDIA AMPLIFIED, [id number] 00:00:00 Test Item Value Reference Range Interpretation Comments GONORRHEA, TMA (test code = 18018) NEGATIVE CHLAMYDIA, TMA (test code = 46497) NEGATIVE [id number] 00:00:00 Test Item Value Reference Range Interpretation Comments RPR RESULT (test code = NON-REACTIVE 3501) RPR TITER (test code = 3500) NOT INDIC. TITER [id number] 00:00:00 Test Item Value Reference Range Interpretation Comments RPR RESULT (test code = NON-REACTIVE 3501) RPR TITER (test code = 3500) NOT INDIC. TITER HIV AB/AG COMBO RFLX [id number] 00:00:00 Test Item Value Reference Range Interpretation Comments HIV 1/2 4TH GEN, RFLX CONF (test NON-REACTIVE code = 3514) [id number] 00:00:00 Test Item Value Reference Range Interpretation Comments RPR RESULT (test code = NON-REACTIVE 3501) RPR TITER (test code = 3500) NOT INDIC. TITER [id number] 00:00:00 Test Item Value Reference Range Interpretation Comments TESTOSTERONE (test code = 2830) 43 NG/DL [id number] 00:00:00 Test Item Value Reference Range Interpretation Comments TESTOSTERONE (test code = 2830) 43 NG/DL HPV HIGH RISK WITH GENOTYPE, [id number] 00:00:00 Test Item Value Reference Range Interpretation Comments HPV HIGH RISK INTERP (test code = NEGATIVE 89589) HPV 16 (test code = 97746) NEGATIVE HPV 18 (test code = 93495) NEGATIVE HPV, HR, OTHER GENOTYPES (test code NEGATIVE = 06182) HPV HIGH RISK WITH GENOTYPE, [id number] 00:00:00 Test Item Value Reference Range Interpretation Comments HPV HIGH RISK INTERP (test code = NEGATIVE 88950) HPV 16 (test code = 70276) NEGATIVE HPV 18 (test code = 02482) NEGATIVE HPV, HR, OTHER GENOTYPES (test code NEGATIVE = 67479) GC AND CHLAMYDIA AMPLIFIED, [id number] 00:00:00 Test Item Value Reference Range Interpretation Comments GONORRHEA, TMA (test code = 52281) NEGATIVE CHLAMYDIA, TMA (test code = 44201) NEGATIVE FSH + LH [id number] 00:00:00 Test Item Value Reference Range Interpretation Comments FOLLICLE STIM HORMONE (test code = 7.0 IU/L 2700) LUTEINIZING HORMONE (test code = 12.1 IU/L 2776) FSH + LH [id number] 00:00:00 Test Item Value Reference Range Interpretation Comments FOLLICLE STIM HORMONE (test code = 7.0 IU/L 2700) LUTEINIZING HORMONE (test code = 12.1 IU/L 2776) [id number] 00:00:00 Test Item Value Reference Range Interpretation Comments PROLACTIN (test code = 2800) 12.5 NG/ML [id number] 00:00:00 Test Item Value Reference Range Interpretation Comments PROLACTIN (test code = 2800) 12.5 NG/ML [id number] 00:00:00 Test Item Value Reference Range Interpretation Comments ESTRADIOL (test code = 2505) 39.3 PG/ML [id number] 00:00:00 Test Item Value Reference Range Interpretation Comments ESTRADIOL (test code = 2505) 39.3 PG/ML [id number] 00:00:00 Test Item Value Reference Range Interpretation Comments ESTRADIOL (test code = 2505) 39.3 PG/ML HIV AB/AG COMBO RFLX [id number] 00:00:00 Test Item Value Reference Range Interpretation Comments HIV 1/2 4TH GEN, RFLX CONF (test NON-REACTIVE code = 3514) [id number] 00:00:00 Test Item Value Reference Range Interpretation Comments RPR RESULT (test code = NON-REACTIVE 3501) RPR TITER (test code = 3500) NOT INDIC. TITER HIV AB/AG COMBO RFLX [id number] 00:00:00 Test Item Value Reference Range Interpretation Comments HIV 1/2 4TH GEN, RFLX CONF (test NON-REACTIVE code = 3514) GC AND CHLAMYDIA AMPLIFIED, [id number] 00:00:00 Test Item Value Reference Range Interpretation Comments GONORRHEA, TMA (test code = 89196) NEGATIVE CHLAMYDIA, TMA (test code = 63014) NEGATIVE GC AND CHLAMYDIA AMPLIFIED, [id number] 00:00:00 Test Item Value Reference Range Interpretation Comments GONORRHEA, TMA (test code = 26475) NEGATIVE CHLAMYDIA, TMA (test code = 66470) NEGATIVE [id number] 00:00:00 Test Item Value Reference Range Interpretation Comments RPR RESULT (test code = NON-REACTIVE 3501) RPR TITER (test code = 3500) NOT INDIC. TITER [id number] 00:00:00 Test Item Value Reference Range Interpretation Comments RPR RESULT (test code = NON-REACTIVE 3501) RPR TITER (test code = 3500) NOT INDIC. TITER [id number] 00:00:00 Test Item Value Reference Range Interpretation Comments RPR RESULT (test code = NON-REACTIVE 3501) RPR TITER (test code = 3500) NOT INDIC. TITER [id number] 00:00:00 Test Item Value Reference Range Interpretation Comments RPR RESULT (test code = NON-REACTIVE 3501) RPR TITER (test code = 3500) NOT INDIC. TITER HPV HIGH RISK WITH GENOTYPE, [id number] 00:00:00 Test Item Value Reference Range Interpretation Comments HPV HIGH RISK INTERP (test code = NEGATIVE 68457) HPV 16 (test code = 61467) NEGATIVE HPV 18 (test code = 41429) NEGATIVE HPV, HR, OTHER GENOTYPES (test code NEGATIVE = 52468) HPV HIGH RISK WITH GENOTYPE, [id number] 00:00:00 Test Item Value Reference Range Interpretation Comments HPV HIGH RISK INTERP (test code = NEGATIVE 90540) HPV 16 (test code = 82126) NEGATIVE HPV 18 (test code = 32286) NEGATIVE HPV, HR, OTHER GENOTYPES (test code NEGATIVE = 89045) [id number] 00:00:00 Test Item Value Reference Range Interpretation Comments TESTOSTERONE (test code = 2830) 43 NG/DL [id number] 00:00:00 Test Item Value Reference Range Interpretation Comments TESTOSTERONE (test code = 2830) 43 NG/DL FSH + LH [id number] 00:00:00 Test Item Value Reference Range Interpretation Comments FOLLICLE STIM HORMONE (test code = 7.0 IU/L 2700) LUTEINIZING HORMONE (test code = 12.1 IU/L 2776) FSH + LH [id number] 00:00:00 Test Item Value Reference Range Interpretation Comments FOLLICLE STIM HORMONE (test code = 7.0 IU/L 2700) LUTEINIZING HORMONE (test code = 12.1 IU/L 2776) [id number] 00:00:00 Test Item Value Reference Range Interpretation Comments PROLACTIN (test code = 2800) 12.5 NG/ML [id number] 00:00:00 Test Item Value Reference Range Interpretation Comments PROLACTIN (test code = 2800) 12.5 NG/ML [id number] 00:00:00 Test Item Value Reference Range Interpretation Comments ESTRADIOL (test code = 2505) 39.3 PG/ML [id number] 00:00:00 Test Item Value Reference Range Interpretation Comments ESTRADIOL (test code = 2505) 39.3 PG/ML [id number] 00:00:00 Test Item Value Reference Range Interpretation Comments ESTRADIOL (test code = 2505) 39.3 PG/ML [id number] 00:00:00 Test Item Value Reference Range Interpretation Comments TESTOSTERONE (test code = 2830) 43 NG/DL HPV HIGH RISK WITH GENOTYPE, [id number] 00:00:00 Test Item Value Reference Range Interpretation Comments HPV HIGH RISK INTERP (test code = NEGATIVE 76863) HPV 16 (test code = 20519) NEGATIVE HPV 18 (test code = 04678) NEGATIVE HPV, HR, OTHER GENOTYPES (test code NEGATIVE = 68053) FSH + LH [id number] 00:00:00 Test Item Value Reference Range Interpretation Comments FOLLICLE STIM HORMONE (test code = 7.0 IU/L 2700) LUTEINIZING HORMONE (test code = 12.1 IU/L 2776) [id number] 00:00:00 Test Item Value Reference Range Interpretation Comments PROLACTIN (test code = 2800) 12.5 NG/ML [id number] 00:00:00 Test Item Value Reference Range Interpretation Comments ESTRADIOL (test code = 2505) 39.3 PG/ML [id number] 00:00:00 Test Item Value Reference Range Interpretation Comments ESTRADIOL (test code = 2505) 39.3 PG/ML VAGINAL PATHOGENS DNA [id number] 00:00:00 Test Item Value Reference Range Interpretation Comments CAITLYN SPECIES (test code = 40133) NEGATIVE G. VAGINALIS (test code = 77364) NEGATIVE T. VAGINALIS (test code = 27333) POSITIVE VAGINAL PATHOGENS DNA [id number] 00:00:00 Test Item Value Reference Range Interpretation Comments CAITLYN SPECIES (test code = 55159) NEGATIVE G. VAGINALIS (test code = 18490) NEGATIVE T. VAGINALIS (test code = 58528) POSITIVE VAGINAL PATHOGENS DNA [id number] 00:00:00 Test Item Value Reference Range Interpretation Comments CAITLYN SPECIES (test code = 23407) NEGATIVE G. VAGINALIS (test code = 60901) NEGATIVE T. VAGINALIS (test code = 21947) POSITIVE VAGINAL PATHOGENS DNA [id number] 00:00:00 Test Item Value Reference Range Interpretation Comments CAITLYN SPECIES (test code = 40481) NEGATIVE G. VAGINALIS (test code = 91977) NEGATIVE T. VAGINALIS (test code = 85610) POSITIVE VAGINAL PATHOGENS DNA [id number] 00:00:00 Test Item Value Reference Range Interpretation Comments CAITLYN SPECIES (test code = 60071) NEGATIVE G. VAGINALIS (test code = 27715) NEGATIVE T. VAGINALIS (test code = 50842) POSITIVE
[2022-09-13 16:28] LABS: Urine Blood Negative (Negative); Urine Glucose Negative (Negative); Urine Protein Negative (Negative)
[2022-09-13 16:47] LABS: Absolute Lymphocytes (CBC) 2.5 K/uL (0.7-4.9); Hematocrit 35.5 % (36.0-45.0); Lymphocytes % 21.6 % (15.3-44.8); MCV 82.9 fL (80-100); MPV 7.5 fL (7.6-11.3); RBC Red Blood Cell Count 4.29 M/uL (3.86-4.86)
[2022-09-13 16:48] LABS: Urine Bacteria None Seen /HPF (<20); Urine Mucus Slight /HPF (None Seen); Urine RBC <5 /HPF (None Seen)
[2022-09-13 16:53] LABS: Protime INR 0.9
[2022-09-13 17:00] LABS: Potassium 3.3 mmol/L (3.5-5.1)
--- NOTE | 2022-09-13 17:56 | RAD REPORT ---
EXAM DESCRIPTION: US - OB Limited - 09/13/2022 5:40 pm CLINICAL HISTORY: COMPARISON: No comparisons FINDINGS: Single intrauterine gestation is identified. Cardiac activity is 143 BPM. Femur length loyd surements indicate age of 15 weeks 2 days. SYLVIA would be approximately 03/05/2023. No gross anatomic abnormality seen though anatomic assessment is very limited on this study. No placental abnormality. Amniotic fluid volume appears normal. Cervical canal appears closed. No int rauterine hematoma or other suspicious finding. Both ovaries are identified and show normal blood flow in the stroma. No adnexal mass. IMPRESSION: Single 15 week 2 day IUP with normal heart rate. No suspicious findings identifiable.
--- NOTE | 2022-09-13 18:39 | ER ---
Nurse's Notes [facility] Name: Carlyn Rodas Age: 31 yrs Sex: Female : 1990 Arrival Date: 09/13/2022 Time: 14:41 Bed 6 Private MD: Diagnosis: Dizziness and giddiness;Other specified related conditions, second trimester Presentation: 09/13 15:23 Chief complaint: Patient states: Intermittent dizziness x 1 week. Pt reports she is 3 ss months . Pt has been seen at a clinic where she had labs drawn for this and was told that everything was negative. Coronavirus screen: Client denies travel out of the [place] in the last 14 days. Ebola Screen: Patient denies exposure to infectious person. Patient denies travel to an Ebola-affected area in the 21 days before illness onset. Initial Sepsis Screen: Does the patient meet any 2 criteria? No. Patient's initial sepsis screen is negative. Does the patient have a suspected source of infection? No. Patient's initial sepsis screen is negative. Risk Assessment: Do you want to hurt yourself or someone else? Patient reports no desire to harm self or others. Onset of symptoms was September 06, 2022. 15:23 Method Of Arrival: Ambulatory ss 15:23 Acuity: FERNANDO 3 ss Triage Assessment: 17:12 General: Appears in no apparent distress. Behavior is calm, cooperative. Pain: Denies ap3 pain. Neuro: Reports dizziness, weakness. Cardiovascular: Patient's skin is warm and dry. Respiratory: Airway is patent Respiratory effort is even, unlabored, Respiratory pattern is regular, symmetrical. HR ADMINISTRATOR: 15:28 LMP N/A - Irregular menses ss Historical: - Allergies: 15:25 No Known Allergies; ss - Home Meds: 15:25 None [Active]; ss - PMHx: 15:25 None; ss - Immunization history:: Client reports receiving the 2nd dose of the Covid vaccine. - Social history:: Smoking status: Patient denies any tobacco usage or history of. Screenin:12 [facility] [place] ED Fall Risk Assessment (Adult) History of falling in the last 3 months, ap3 including since admission No falls in past 3 months (0 pts). Abuse screen: Denies threats or abuse. Nutritional screening: No deficits noted. Tuberculosis screening: No symptoms or risk factors identified. Assessment: 19:17 Reassessment: Patient appears in no apparent distress at this time. Patient and/or jb4 family updated on plan of care and expected duration. Pain level reassessed. Patient is alert, oriented x 3, equal unlabored respirations, skin warm/dry/pink. Patient states feeling better. Vital Signs: 15:28 Pulse 84; Resp 15; Temp 97.9(TE); Pulse Ox 100% on R/A; Height 4 ft. 11 in. (149.86 ss cm); Pain 0/10; 15:28 BP 117 / 69; ss ED Course: 14:41 Patient arrived in ED. rg4 14:58 Schuyler Torres PA is PHCP. cp 14:58 Talha Delatorre DO is Attending Physician. cp 15:25 Triage completed. ss 15:25 Arm band placed on right wrist. ss 16:15 Amna Lombardi, RN is Primary Nurse. ko1 16:31 Urine Microscopic Only Sent. ko1 16:40 Inserted saline lock: 20 gauge in right antecubital area, using aseptic technique. ap3 Blood collected. 17:03 Quantitative Hcg Sent. ko1 17:12 Patient has correct armband on for positive identification. Bed in low position. Call ap3 light in reach. Side rails up X 1. hall monitor on. Pulse ox on. NIBP on. 17:42 US OB Limited In Process Unspecified. EDMS 19:14 Primary Nurse role handed off by Amna Lombardi, RN mw2 19:14 role handed off by Enid Duran, HERMILO mw2 19:17 No provider procedures requiring assistance completed. IV discontinued, intact, jb4 bleeding controlled, No redness/swelling at site. Pressure dressing applied. Administered Medications: No medications were administered Medication: 17:12 VIS not applicable for this client. ap3 Outcome: 18:39 Discharge ordered by MD. cp 19:17 Discharged to home ambulatory. jb4 19:17 Condition: stable 19:17 Discharge instructions given to patient, Instructed on discharge instructions, follow up and referral plans. Demonstrated understanding of instructions, follow-up care. 19:18 Patient left the ED. jb4 Signatures: Dispatcher [employer] EDSC Jada Hernández RN RN Schuyler Torres PA PA cp Garcia, Rubi 4 Yordy Conde RN RN jb4 Enid Duran, RN RN ap3 Avani Prater mw2 Amna Lombardi, RN RN ko1
--- NOTE | 2022-09-13 18:39 | EDPHYS ---
Physician Documentation [facility] Name: Carlyn Rodas Age: 31 yrs Sex: Female : 1990 Arrival Date: 09/13/2022 Time: 14:41 Bed 6 Private MD: ED Physician Talha Delatorre HPI: 09/13 15:35 This 31 yrs old Female presents to ER via Ambulatory with complaints of cp Dizziness. 15:35 The patient presents with lightheadedness, sense of spinning. Onset: The cp symptoms/episode began/occurred 1 week(s) ago. 15:35 Context: just prior to the episode the patient experienced no apparent symptoms. cp Associated signs and symptoms: Pertinent positives: , Pertinent negatives: blurred vision, chest pain, confusion, diaphoresis, focal weakness, head injury, headache, near-syncope, shortness of breath, syncope. Severity of symptoms: in the emergency department the symptoms have improved. Patient's baseline: Neuro: alert and fully oriented, Motor: no deficits, Ambulation: walks without assistance, Speech: normal. 15:35 Patient reports learning she was last month and has been seen at local clinic cp for . Recent blood work. Does not currently have primary OB. Awaiting insurance card. Admits to increase stress. First , currently unemployed and staying with friend. EVENT STAFF: 15:28 LMP N/A - Irregular menses ss Historical: - Allergies: 15:25 No Known Allergies; ss - Home Meds: 15:25 None [Active]; ss - PMHx: 15:25 None; ss - Immunization history:: Client reports receiving the 2nd dose of the Covid vaccine. - Social history:: Smoking status: Patient denies any tobacco usage or history of. ROS: 15:40 Constitutional: Negative for body aches, chills, fever, poor PO intake. cp 15:40 Eyes: Negative for injury, pain, redness, and discharge. cp 15:40 ENT: Negative for drainage from ear(s), ear pain, sore throat, difficulty swallowing, difficulty handling secretions. 15:40 Neck: Negative for pain with movement, pain at rest, stiffness. 15:40 Cardiovascular: Negative for chest pain, edema, palpitations. 15:40 Respiratory: Negative for cough, shortness of breath, wheezing. 15:40 Abdomen/GI: Negative for abdominal pain, nausea, vomiting, diarrhea, constipation. 15:40 : Negative for urinary symptoms, vaginal bleeding, vaginal discharge. 15:40 Neuro: Positive for dizziness, Negative for altered mental status, headache, syncope, near syncope, visual changes, weakness. 15:40 All other systems are negative. Exam: 15:45 Constitutional: The patient appears in no acute distress, alert, awake, comfortable, cp non-toxic, well developed, well nourished. 15:45 Head/Face: Normocephalic, atraumatic. cp 15:45 Eyes: Periorbital structures: appear normal, Pupils: equal, round, and reactive to light and accomodation, Extraocular movements: intact throughout, Conjunctiva: normal, no exudate, no injection, Sclera: no appreciated abnormality, Lids and lashes: appear normal, bilaterally. 15:45 ENT: External ear(s): are unremarkable, Ear canal(s): are normal, clear, TM's: dullness, bilaterally, Nose: is normal, Mouth: Lips: moist, Oral mucosa: pink and intact, moist, Posterior pharynx: is normal, airway is patent, no erythema, no exudate. 15:45 Neck: ROM/movement: is normal, is supple, without pain, no range of motions limitations. 15:45 Chest/axilla: Inspection: normal. 15:45 Cardiovascular: Rate: normal, Rhythm: regular, Edema: is not appreciated, JVD: is not appreciated. 15:45 Respiratory: the patient does not display signs of respiratory distress, Respirations: normal, no use of accessory muscles, no retractions, labored breathing, is not present, Breath sounds: are clear throughout, no decreased breath sounds, no stridor, no wheezing. 15:45 Abdomen/GI: Inspection: abdomen appears normal, Palpation: abdomen is soft and non-tender, in all quadrants. 15:45 Back: pain, is absent, ROM is normal. 15:45 Neuro: Orientation: to person, place \T\ time. Mentation: is normal, Cerebellar function: is grossly normal, Motor: moves all fours, strength is normal, Sensation: is normal. 17:24 ECG was reviewed by the Attending Physician. cp Vital Signs: 15:28 Pulse 84; Resp 15; Temp 97.9(TE); Pulse Ox 100% on R/A; Height 4 ft. 11 in. (149.86 ss cm); Pain 0/10; 15:28 BP 117 / 69; ss MDM: 16:05 Patient medically screened. cp 17:30 ED course: Patient refuses head CT at this time. cp 18:38 Data reviewed: vital signs, nurses notes, lab test result(s), EKG. cp 18:38 Consideration of Admission/Observation Escalation of care including cp admission/observation considered. Test considered but Not performed: Other Details chest xray, CT head. Care significantly affected by the following Social Determinants of Health: Poor access to healthcare and/or lack of insurance, Unemployment. Counseling: I had a detailed discussion with the patient and/or guardian regarding: the historical points, exam findings, and any diagnostic results supporting the discharge/admit diagnosis, lab results, the need for outpatient follow up, an OB/Gyne specialist, to return to the emergency department if symptoms worsen or persist or if there are any questions or concerns that arise at home. Response to treatment: the patient's symptoms have markedly improved after treatment, and as a result, I will discharge patient. 09/13 15:32 Order name: Basic Metabolic Panel; Complete Time: 18:04 09/13 17:18 Interpretation: Normal except: K 3.3; GLUC 130; BUN 6; CRE 0.50. 09/13 15:32 Order name: CBC with Diff; Complete Time: 17:18 09/13 17:19 Interpretation: Normal except: WBC 11.60; HCT 35.5; MPV 7.5; NEUT A 8.5. 09/13 15:32 Order name: Magnesium; Complete Time: 18:04 09/13 15:32 Order name: Rh Type cp 09/13 15:32 Order name: Quantitative Hcg; Complete Time: 18:04 09/13 15:32 Order name: PT-INR; Complete Time: 17:18 09/13 15:29 Order name: Orthostatic Blood Pressure 09/13 15:32 Order name: Cardiac monitoring; Complete Time: 16:28 09/13 15:32 Order name: Urine Microscopic Only; Complete Time: 17:18 09/13 16:24 Order name: US OB Limited; Complete Time: 18:04 09/13 16:29 Order name: Urine Dipstick-Ancillary; Complete Time: 17:18 EDMS 09/13 16:29 Order name: Urine --Ancillary (enter results); Complete Time: 17:18 bd 09/13 15:32 Order name: EKG - Nurse/Tech; Complete Time: 17:16 cp 09/13 15:32 Order name: IV Saline Lock; Complete Time: 16:40 cp 09/13 15:32 Order name: Labs collected and sent; Complete Time: 16:40 cp 09/13 15:32 Order name: O2 Per Protocol; Complete Time: 16:28 cp 09/13 15:32 Order name: O2 Sat Monitoring; Complete Time: 16:28 cp 09/13 15:32 Order name: Urine Dipstick-Ancillary (obtain specimen); Complete Time: 16:28 cp 09/13 15:32 Order name: Urine Test (obtain specimen); Complete Time: 16:28 cp EC:24 Rate is 74 beats/min. Rhythm is regular. [place] interval is normal. QRS interval is normal. cp QT interval is normal. T waves are Inverted in lead aVR. Interpreted by me. Reviewed by me. Administered Medications: No medications were administered Disposition: 19:04 Co-signature as Attending Physician, Talha Delatorre DO I was immediately available on-site ms3 in the Emergency Department for consultation in the care of the patient. Disposition Summary: 09/13/22 18:39 Discharge Ordered Location: Home cp Problem: new cp Symptoms: have improved cp Condition: Stable cp Diagnosis - Dizziness and giddiness cp - Other specified related conditions, second trimester cp Followup: cp - With: Private Physician - When: 2 - 3 days - Reason: Recheck today's complaints Discharge Instructions: - Discharge Summary Sheet cp - Dizziness cp - Second Trimester of cp - Managing Stress During cp Forms: - Medication Reconciliation Form cp - Thank You Letter cp - Antibiotic Education cp - Prescription Opioid Use cp Signatures: Dispatcher [employer] Jada Solomon RN RN Schuyler Lim PA PA cp Sims, Marcus, DO DO ms3 Corrections: (The following items were deleted from the chart) 17:35 16:24 Head Brain Wo [id number].RAD.BRZ ordered. EDMS EDMS
[2022-09-13 21:47] VITALS: BP 117/69; TEMP 97.9; O2SAT 100
== END 2022-09-13 19:18 | disposition home or self-care (01) ==
LOC: ER 14:38
DX: O26.892 Other specified pregnancy related conditions, second trimester (principal); Z3A.15 15 weeks gestation of pregnancy
CPT/HCPCS: 36415; 76815; 80048; 81003; 81015; 81025; 83735; 84702; 85025; 85610; 99284

== ENCOUNTER 2023-01-15 00:28 | Emergency (ER) | payer OTHER ==
--- OUTSIDE RECORDS SUMMARY | 2023-01-15 01:33 | XMS REPORT | Continuity of Care Document ---
:1990 Author Organization [facility] t Address [address] [facility] Michael[address] [place] [address] Care Team Providers Name Role Phone Pcp, Patient Does Not Have A Primary Care Physician [id number] GERMANIA KELLY Attending Clinician Unavailable GERMANIA KELLY Attending Clinician Unavailable Doctor Unassigned, [place] Attending Clinician Unavailable Payers Payer Name Policy Type Policy Number Effective Date Expiration Date S suraj [facility] [id number] 2022 00:00:00 Problems Condition Condition Condition Status Onset Resolution Last Treating Co mments Source Name Details Category Date Date Treatment Clinician Date Insufficie Insufficie Disease Active U nivers nt nt 2-06 ity of 00:00: [place] care in care in 00 Medical second second Branch trimester trimester Obesity in Obesity in Disease Active U nivers , , 2-06 [place] Transporta Transporta Disease Active U nivers tion tion 2-06 [place] of insecurity [place] Other and Other and Disease Active Overview: Univers unspecifie unspecifie 19 Formattin ity of d diseases d diseases 00:00: g of this [place] of the of the 00 note Medical oral soft oral soft might be Br anch tissues tissues different from the original. Added automatic ally from request for surgery [id number] Allergies, Adverse Reactions, Alerts Allergy Allergy Status Severity Reaction(s) Onset Inactive Treating Comm ents Source Name Type Date Date Clinician Daija Felipe Active Intraven ty to 7-07 ous adverse 00:00: reaction 00 to drug NO KNOWN Drug Active [facility] ALLERGIE Class ity of S [facility] Social History Social Habit Start Date Stop Date Quantity Comments Source ASSERTION 2022-07-04 University 00:00:00 [facility] Exposure to 2022-09-17 2022-09-27 Not sure [facility] SARS-CoV-2 (event) 00:00:00 13:37:00 [facility] Tobacco use and 2022-09-27 2022-09-27 Smokeless Universit y of exposure 00:00:00 00:00:00 tobacco non-user [facility] Alcohol intake 2022-09-27 2022-09-27 Ex-drinker [facility] 00:00:00 00:00:00 (finding) [facility] Cigarettes smoked 2022-09-27 2022-09-27 [facility] ity of current (pack per 00:00:00 00:00:00 [facility] ) - Reported Branch History of tobacco 2014-08-22 Cigarette Smoker University of use 00:00:00 [facility] Sex Assigned At [birth year] Universit y of 00:00:00 00:00:00 [facility] Smoking Status Start Date Stop Date Source Ex-smoker 2022-09-27 00:00:00 2022-09-27 00:00:00 [facility] Medications Ordered Filled Start Stop Current Ordering Indication Dosage Frequency Signature Comments Components Source Medication Medication Date Date Medication? Clinician (SIG) Name Name TAKE No TABLET BY 1-18 MOUTH EVERY 00:00: 12 HOURS 00 FOR 30 DAYS AMOX-CLAV No 875-125 MG 1-18 TABLET 00:00: 00 DISSOLVE 1 No 4 TABLET IN 8-10 MOUTH EVERY 00:00: 4 TO 6 00 HOURS TAKE No 300 CAPSULE BY 8-10 MOUTH EVERY 00:00: 8 HOURS FOR 00 10 DAYS USE 2021- No DIRECTED 8-10 TWICE DAILY 00:00: TO AFFECTED 00 AREA TAKE 1 2021- No 500 TABLET 8-10 TWICE DAILY 00:00: UNTIL 00 FINISHED. TAKE 1 2-0 No TABLET BY 8-10 MOUTH EVERY 00:00: 12 HOURS 00 DISSOLVE 1 2022-0 No 4 TABLET IN 8-10 MOUTH EVERY 00:00: 4 TO 6 00 HOURS TAKE 1 2022-0 No 300 CAPSULE BY 8-10 MOUTH EVERY 00:00: 8 HOURS FOR 00 10 DAYS USE 2-0 No DIRECTED 8-10 TWICE DAILY 00:00: TO AFFECTED 00 AREA TAKE 1 2-0 No 500 TABLET 8-10 TWICE DAILY 00:00: [...] 4 TO 6 00 HOURS TAKE 1 2-0 No 20 TABLET BY 7-08 MOUTH EVERY [...] DAILY 00:00: TO AFFECTED 00 AREA USE 2021-0 No DIRECTED 7-07 TWICE DAILY 00:00: TO AFFECTED 00 AREA USE 2021-0 No DIRECTED 7-07 TWICE DAILY 00:00: TO AFFECTED 00 AREA ibuprofen 2-0 No 1mg 600 mg 2-11 tablet 00:00: 00 ibuprofen 2022-0 No 1mg 600 mg 2-11 tablet 00:00: 00 ibuprofen 2022-0 No 1mg 600 mg 2-11 tablet 00:00: 00 diclofenac 2021-0 No 1mg sodium 75 7-28 mg 00:00: tablet,zeferino 00 yed release cyclobenzap 1-0 No 1mg rine 10 mg 7-28 tablet 00:00: 00 diclofenac 1-0 No 1mg [...] 00:00: 0.1 % 00 topical ointment clotrimazol 2021-0 No 1% e 1 % 7-17 topical 00:00: cream 00 triamcinolo 2021-0 No 1% ne 7-17 acetonide 00:00: 0.1 % 00 topical ointment clotrimazol 2021-0 No 1% e 1 % 7-17 topical 00:00: cream 00 triamcinolo 2021-0 No 1% ne 7-17 acetonide 00:00: 0.1 % 00 topical ointment clotrimazol 2021-0 No 1% e 1 % 7-17 topical 00:00: cream 00 Macrobid 2021-0 No 1mg 100 mg 7-12 capsule 00:00: 00 Macrobid 2021-0 No 1mg 100 mg 7-12 capsule 00:00: 00 Macrobid 2021-0 No 1mg 100 mg 7-12 capsule 00:00: 00 Zyrtec 10 1-0 No 1mg mg tablet 01-21 00:00: 00 Zyrtec 10 1-0 No 1mg mg tablet 01-21 00:00: 00 Zyrtec 10 2021-0 No 1mg mg tablet 01-21 00:00: 00 Xulane 150 2021-0 No 1mcg/24 mcg-35 2-19 hr mcg/24 hr 00:00: transdermal 00 patch Xulane 150 2021-0 No 1mcg/24 mcg-35 2-19 hr mcg/24 hr 00:00: transdermal 00 patch Xulane 150 2021-0 No 1mcg/24 mcg-35 2-19 hr mcg/24 hr 00:00: transdermal 00 patch Flagyl 500 2021-0 No 1mg mg tablet -20 00:00: 00 Flagyl 500 2021-0 No 1mg mg tablet 1-20 00:00: 00 Flagyl 500 2020-0 No 1mg mg tablet 1-20 00:00: 00 Macrobid 0 No 1mg 100 mg 1-16 capsule 00:00: 00 Macrobid 2020-0 No 1mg 100 mg 1-16 capsule 00:00: 00 Macrobid 0 No 1mg 100 mg 1-16 capsule 00:00: 00 ibuprofen 2016-08 Yes 600mg Take 1 Unive rs 600 mg 0-18 tablet by ity of tablet 00:00: mouth [place] 00 every 6 Medical (six) Branch hours as needed for Pain (scale 4-6). ibuprofen 2016-08 Yes 600mg Take 1 Unive rs 600 mg 0-18 tablet by ity of tablet 00:00: mouth [place] 00 every 6 Medical (six) Branch hours as needed for Pain (scale 4-6). ibuprofen 2016-08 No 600mg Take 1 Univ ers 600 mg 0-18 02-12 tablet by ity of tablet 00:00: 00:00 mouth [place] 00 :00 every 6 Medical (six) Branch hours as needed for Pain (scale 4-6). Immunizations Ordered Immunization Filled Immunization Date Status Commen ts Source Name Name Red REDDID-19 2021-01-01 Completed Vaccine 00:00:00 Red COVID-19 2021-01-01 Completed Vaccine 00:00:00 Erwina COVID-19 2021-01-01 Completed Vaccine 00:00:00 Red COVID-19 2020-12-03 Completed Vaccine 00:00:00 Red COVID-19 2020-12-03 Completed Vaccine 00:00:00 Erwina COVID-19 2020-12-03 Completed Vaccine 00:00:00 Vital Signs Vital Name Observation Time Observation Value Comments Source Systolic blood 2022-09-27 20:07:00 96 mm[Hg] Univer sity of pressure [facility] Diastolic blood 2022-09-27 20:07:00 55 mm[Hg] Unive rsity of [facility] Heart rate 2022-09-27 20:07:00 85 /min [facility] Body temperature 2022-09-27 20:07:00 36.89 [place] Univ [address] [facility] [place] [place] Respiratory rate 2022-09-27 20:07:00 18 /min [facility] Body height 2022-09-27 20:07:00 149.9 cm [facility] Body weight 2022-09-27 20:07:00 78.926 kg [facility] BMI 2022-09-27 20:07:00 35.14 kg/m2 [facility] BP Systolic 2022-09-07 17:31:00 96 mm[Hg] BP [...] Respiratory Rate 2020-09-27 09:54:00 17.00 /min Procedures Procedure Date / Time Performing Clinician Source Performed AUTHORIZATION TO RELEASE 2023-01-05 05:01:00 Doctor Unassigned, No [facility] FALL RISK ASSESSMENT 2022-10-20 06:01:00 [facility]igned, [facility] & CHLAMYDIA AMPLIFIED 2022-09-27 23:00:00 Germania Kelly [facility] TRICHOMONAS AMPLIFIED 2022-09-27 23:00:00 [facility] 2022-09-27 19:38:59 Doctor Unassigned, No [facility] POCT URINALYSIS W/O 2022-09-27 00:00:00 Germania Kelly [facility] SPECIFIC GRAVITY [facility] Plan of Care Planned Activity Planned Date Details Comments Source Goal Plan of Care Note [code = 48431-8] Goal Plan of Care Note [code = 36033-4] Goal Plan of Care Note [code = 79795-1] Goal Plan of Care Note [code = 79698-0] Goal Plan of Care Note [code = 45088-6] Goal Plan of Care Note [code = 16319-3] Goal Plan of Care Note [code = 56655-5] Goal Plan of Care Note [code = 81981-0] Goal Plan of Care Note [code = 89170-4] Goal Plan of Care Note [code = 05312-0] Goal Plan of Care Note [code = 41898-4] Goal Plan of Care Note [code = 29119-6] Goal Plan of Care Note [code = 66310-6] Goal Plan of Care Note [code = 81279-0] Goal Plan of Care Note [code = 75488-1] Goal Plan of Care Note [code = 93794-3] Goal Plan of Care Note [code = 19988-3] Goal Plan of Care Note [code = 24923-2] Goal Plan of Care Note [code = 22681-4] Goal Plan of Care Note [code = 07005-7] Goal Plan of Care Note [code = 56938-8] Goal Plan of Care Note [code = 36241-9] Goal Plan of Care Note [code = 33455-5] Goal Plan of Care Note [code = 86560-5] Goal Plan of Care Note [code = 31504-6] Goal Plan of Care Note [code = 42974-3] Goal Plan of Care Note [code = 71009-3] Goal Plan of Care Note [code = 03842-8] Goal Plan of Care Note [code = 86451-1] Goal Plan of Care Note [code = 22662-4] Goal Plan of Care Note [code = 77237-6] Goal Plan of Care Note [code = 75923-2] Goal Plan of Care Note [code = 89302-0] Goal Plan of Care Note [code = 19908-8] Goal Plan of Care Note [code = 28590-1] Goal Plan of Care Note [code = 84887-7] Goal Plan of Care Note [code = 40521-6] Goal Plan of Care Note [code = 38299-1] Goal Plan of Care Note [code = 40428-9] Goal Plan of Care Note [code = 97890-1] Goal Plan of Care Note [code = 68374-3] Goal Plan of Care Note [code = 22981-2] Goal Plan of Care Note [code = 22926-6] Goal Plan of Care Note [code = 90251-1] Goal Plan of Care Note [code = 59328-4] Goal Plan of Care Note [code = 08723-9] Goal Plan of Care Note [code = 66624-6] Goal Plan of Care Note [code = 13598-8] Goal Plan of Care Note [code = 20470-1] Goal Plan of Care Note [code = 31601-4] Goal Plan of Care Note [code = 97094-2] Goal Plan of Care Note [code = 53441-0] Goal Plan of Care Note [code = 00212-8] Goal Plan of Care Note [code = 54831-5] Goal Plan of Care Note [code = 23406-5] Goal Plan of Care Note [code = 28193-9] Goal Plan of Care Note [code = 63052-1] Goal Plan of Care Note [code = 86400-9] Goal Plan of Care Note [code = 88367-0] Goal Plan of Care Note [code = 82245-6] Goal Plan of Care Note [code = 74367-0] Goal Plan of Care Note [code = 80979-4] Goal Plan of Care Note [code = 56310-0] Goal Plan of Care Note [code = 16390-0] Goal Plan of Care Note [code = 36295-9] Goal Plan of Care Note [code = 44349-1] Goal Plan of Care Note [code = 21892-2] Goal Plan of Care Note [code = 44594-4] Goal Plan of Care Note [code = 35409-2] Goal Plan of Care Note [code = 49322-4] Goal Plan of Care Note [code = 52225-5] Goal Plan of Care Note [code = 04871-8] Goal Plan of Care Note [code = 29899-3] Goal Plan of Care Note [code = 05886-7] Goal Plan of Care Note [code = 93557-3] Goal Plan of Care Note [code = 10059-2] Goal Plan of Care Note [code = 27772-3] Goal Plan of Care Note [code = 77519-4] Goal Plan of Care Note [code = 49033-1] Goal Plan of Care Note [code = 54271-8] Goal Plan of Care Note [code = 14358-3] Goal Plan of Care Note [code = 29723-5] Goal Plan of Care Note [code = 09652-5] Goal Plan of Care Note [code = 12920-2] Goal Plan of Care Note [code = 91224-3] Goal Plan of Care Note [code = 08958-4] Goal Plan of Care Note [code = 60900-5] Goal Plan of Care Note [code = 16397-1] Goal Plan of Care Note [code = 64786-0] Goal Plan of Care Note [code = 52153-9] Goal Plan of Care Note [code = 04483-8] Goal Plan of Care Note [code = 67018-7] Goal Plan of Care Note [code = 16832-5] Goal Plan of Care Note [code = 02558-0] Goal Plan of Care Note [code = 07191-4] Encounters Start End Encounter Admission Attending Care Care Encounter Source Date/Time Date/Time Type Type Clinicians Facility Department ID 2023-01-19 2023-01-19 Outpatient R GERMANIA KELLY [facility] B [id number] Univers 16:15:00 16:15:00 GERMANIA KELLY itsofía [facility] [place] [place] 2023-01-14 2023-01-14 Outpatient [facility] [id number] Serafin 14:53:49 14:53:49 0526 F [place] 2023-01-13 2023-01-13 Telephone Aminata [facility] 1.2.840.11 4 [id number] Univers 00:00:00 00:00:00 Germania GONZALEZ 350.1.13.10 it y of WOM[place].2.686 [place] [facility] [id number] [facility] [address] Branch 2023-01-05 2023-01-05 Orders Doctor CLEVE 1.2.840.114 [id number] Univers 00:00:00 00:00:00 Only Unassigned, FRANCESCA 350.1.13.10 ity of [place] [facility] 4.2.7.2.686 Arturo [id number] [facility] [address]9 Branch 2022-11-08 2022-11-08 Outpatient P [facility] [id number] Univers 10:00:00 10:00:[address] [facility] [place] [place] 2022-11-05 2022-11-05 Outpatient P [facility] [id number] Univers 08:30:00 08:30:[address] [facility] [place] [place] 2022-10-25 2022-10-25 Outpatient R GERMANIA KELLY [facility] B [id number] Univers 09:15:00 09:15:[address] [facility] [place] 2022-10-20 2022-10-20 Orders Doctor CLEVE 1.2.840.114 [id number] Univers 00:00:00 00:00:00 Only Unassigned, FRANCESCA 350.1.13.10 ity of [place] [facility] 4.2.7.2.686 Arturo as [id number] [address] 2022-10-17 2022-10-17 Telephone [facility] 1.2.840.11 4 [id number] Univers 00:00:00 00:00:00 Germania GONZALEZ 350.1.13.10 it [place] [id number] [address] 2022-10-11 2022-10-11 Telephone [facility] 1.2.840.11 4 [id number] Univers 00:00:00 00:00:00 Germania GONZALEZ 350.1.13.10 it [place] [id number] [address] 2022-10-01 2022-10-01 Letter [facility] 1.2.840.114 [id number] Univers 00:00:00 00:00:00 (Out) Germania GONZALEZ 350.1.13.10 it [place] [id number] [address] 2022-09-30 2022-09-30 Outpatient SFA SFA [id number] Serafin 10:15:05 10:15:05 0[address] [facility] 2022-09-27 2022-09-27 Outpatient SFA SFA [id number] 023 Serafin 16:36:06 16:36:06 0206 [place] 2022-09-27 2022-09-27 Outpatient R GERMANIA KELLY [facility] B [id number] Univers 13:30:00 14:33:13 GERMANIA KELLY of [facility] 2022-09-27 2022-09-27 Initial MATT Kelly 1.2.840.114 [id number] Univers 13:30:00 14:33:13 Germania GONZALEZ 350.1.13.10 i ty of Visit W[place] 4[place]2.[place] [id number] [facility] [address] 2022-09-27 2022-09-27 Orders Doctor CLEVE 1.2.840.114 [id number] Univers 00:00:00 00:00:00 Only Unassigned, FRANCESCA 350.1.13.10 ity of [place] [facility] 4.2.7.2.686 Arturo [id number] [facility] 009 Branch 2022-09-08 2022-09-08 Outpatient SFA SFA [id number] 023 Serafin 13:23:15 13:23:15 0118 [address] [place] 2022-09-07 2022-09-07 Outpatient SFA SFA [id number] 023 Serafin 17:08:57 17:08:57 0117 [place] 2022-09-07 2022-09-07 Outpatient [id number]-[id number] 00:00:00 00:00:00 Visit [id number] 68ccf8 2022-07-27 2022-07-27 Outpatient SFA SFA [id number] 022 Serafin 13:04:42 13:04:42 [address] [facility] 2022-03-31 2022-03-31 Outpatient [id number]- [id number] 00:00:00 00:00:00 Visit 4730-47fc [id number]-8 -[id number] 2022-02-25 2022-02-25 Outpatient [id number]- [id number] 00:00:00 00:00:00 Visit 27ac-49cc 7ac-49cc-8 -[id number] 12cbff Results Test Description Test Time Test Comments Results Result Comments Source PAP TEST, THINPREP, IMAGED 2022-09-29 14:51:31 Test Item Value Reference Range Interpretation Comme nts SOURCE: (test code = Cervical 8001) SLIDES: (test code = 1 8011) LMP: (test code = 8021) 06/20/2022 SPECIMEN ADEQUACY: (test (NOTE) Sa tisfactory for evaluation. code = 06163) Endocervical cells/transform ation zone component prese nt. INTERPRETATION: (test NILM/NO EPITH. ---- code = 68632) ABNORMALITY;SEE BELOW ----- ------ NEGA TIVE FOR INTRAEPITHELIAL LESION OR MALIGNANCY (NIL M) --------- OTHER COMMENTS: (test (NOTE) Shift in trent suggestive of code = 8081) bacterial vagin osis. [employer]: (test Rupali Horowitz, code = 8101) CT(ASCP) LOCATION: (test code = (NOTE) Speci mens processed and 75492) interpreted at [facility], [address] [place] [address], , CLIA: [id number] CPT: (test code = 8140) (NOTE) 8817 5 UNLESS OTHERWISE INDICATED, COMP UTER AIDED AND CYTOTECHNOLOGIS T SCREENING PERFORMED. The Pap test is a screening test with an inherent, but low probabi lity of error. Your patient sh ould be reminded to consult you immediately if she experiences any suspicious signs or sympto ms, regardless of her Pap test re sult. An alternate repor t format containing imag es or consolidated pr ior Pap history is available as applicable. HPV HIGH RISK WITH GENOTYPE, [id number] 13:47:49 Test Item Value Reference Range Interpretation Comments HPV HIGH RISK INTERP NEGATIVE NEGATIVE (test code = 50432) HPV 16 (test code = NEGATIVE 19715) HPV 18 (test code = NEGATIVE 00543) HPV, HR, OTHER NEGATIVE Testing meth odology is GENOTYPES (test code real-ti me PCR utilizing = 76548) hydrolysis prob es with the Jesusita González 4800 system. The jaylen t individually de tects genotypes 16 an d 18, as well as the oth er 12 high risk types (31,33,35,39,45 ,51,52,56 ,58,59,66,68). The expected result is negative. A neg ative result does not rule out the presence of HPV not included in the genotype set, a low leve l of infection or sp ecimen sampling error. [facility] has important p athology staff changes e ffective 10/20/2022. New pathology staff will provide uninter rupted, excellent patie nt care and clinical consultation. S ee URL: [email or web address]. UNLESS OTHERWISE INDICATED, ALL TESTING PERFORMED AT [facility] [address] [place] [address] CLIA : [id number], CAP : [id number] POCT URINALYSIS W/O SPECIFIC [id number] 20:17:00 Test Item Value Reference Range Interpretation Comments POCT PH U (test code = 3254) N/A 5-8 POCT U LEUK EST (test code = N/A Negative - Negative 3263) POCT U NIT (test code = 3262) N/A Negative - Negative POCT U PROT (test code = 3259) Negative Negative - Negative POCT U GLU (test code = 3256) Negative Negative - Negative POCT U KETONE (test code = 3258) N/A Negative - Negative POCT U BLD (test code = 3257) N/A Negative - Negative [facility] [id number] 14:58:32 Test Item Value Reference Range Interpretation Comments HEMOGLOBIN A1 (test 97.4 % 95.0-98.5 code = 2575) HEMOGLOBIN A2 (test 2.6 % 1.6-3.7 code = 2576) HEMOGLOBIN F () 0.0 % 0.0-2.0 (test code = 2722) HEMOGLOBIN S (test NONE % NONE DETECTED code = 2724) HEMOGLOBIN C (test NONE % NONE DETECTED code = 2726) OTHER HEMOGLOBIN NONE DETEC % NONE DETECTED VARIANT (test code = 73924) PATHOLOGIST'S (NOTE) NO ABNORMAL INTERPRETATION (test HEMOGLO BINS code = 2577) IDENTIFIED. LAITH BALLESTEROS M.D. PAP TEST, THINPREP, [id number] 13:40:58 Test Item Value Reference Range Interpretation Comments SOURCE: (test Cervical/Endoce code = 8001) rvical SLIDES: (test 2 code = 8011) LMP: (test code 07/20/2022 = 8021) SPECIMEN (NOTE) Unsatisfactory (see ADEQUACY: (test Interpretati on). code = 50052) INTERPRETATION: UNSATISFACTORY; A --------- (test code = SEE BELOW -------- 35190) -------- - UNSATISFA CTORY FOR EVALUATION Insufficient cellularity (Ch arges deleted, please resubmit)------ -------- -------- -------- OTHER COMMENTS: (NOTE) Glacial acet ic acid (test code = added due to 8081) blood/mucus in specimen. [employer] Sara De La Rosa : (test code = 8101) QC TECHNOLOGIST: Jessy Rodriguez, (test code = [facility](ASCP) IAC 8111) LOCATION: (test (NOTE) Specimens pr ocessed and code = 90885) interpreted at [facility], [address] [place] [address], [place] 3[address] 4, Phone: , CLIA: [id number] CPT: (test code (NOTE) 43717 UNLESS OTHERWISE = 8140) INDICATED, COMP UTER AIDED AND CYTOTECHNOLOGIS T SCREENING PERFO RMED. The Pap test is a screening test with an inherent, but l ow probability of error. Your patient sh ould be reminded to con sult you immediately if she experiences any suspicious sig ns or symptoms, regar dless of her Pap test re sult. An alternate repor t format containing imag es or consolidated pr ior Pap history is avai lable as applicable. CULTURE, [id number] 12:16:01SPECIMEN NUMBER: [id number] CULTURE, URINE SPECIMEN NUMBER: [id number] SPECIMEN COMMENT: URINE SOURCE: URINE REPORT STATUS: FINAL ISOLATE NUMBER 1: IDENTIFICATION: 09/10/2022 10-50,000 CFU/ML STREPTOCOCC US AGALACTIAE (GROUP B) ADDITIONAL OBSERVATIONS: PENICILLIN AND AMPICILLIN ARE DRUGS OF CHOICE FOR TREATMENT OF B-HEMOLYTIC STREPTOCOCCAL INFECTIONS. SUSCEPTIBILITY TESTING OF PENICILLIN AND OTHER B-LACTAMS APPROVED BY THE [employer]UG [employer]ATION FOR TREATMENT OF B-HEMOLYTIC STREPTOCOCCAL INFECTIONS NEED NOT BE PERFORMED ROUTINELY. ADDITIONAL OBSERVATIONS: 09/10/2022 50-100,000 CFU/ML UROGENITAL TRENT PRESENT NO COMMON PATHOGENSHPV HIGH RISK WITH GENOTYPE, [id number] 15:55:11 Test Item Value Reference Range Interpretation Comments HPV HIGH RISK INTERP NEGATIVE NEGATIVE (test code = 01140) HPV 16 (test code = NEGATIVE 55230) HPV 18 (test code = NEGATIVE 48903) HPV, HR, OTHER NEGATIVE Testing meth odology is GENOTYPES (test code real-ti me PCR utilizing = 80309) hydrolysis prob es with the Jesusita González 4800 system. The jaylen t individually de [...] ATED, ALL TESTING PERFORM ED ATCL[facility] PATH [facility], [place]. [address] [place] [address] LABORATORY DIRE CTOR: ASHLEY ROBERTS M.D. CLIA NUMBER [id number] CAP ACCREDITATI ON NO. VAGINAL PATHOGENS DNA [id number] 15:49:27 Test Item Value Reference Range Interpretation Comments CAITLYN SPECIES POSITIVE NEGATIVE A (test code = ) G. VAGINALIS POSITIVE NEGATIVE A (test code = ) T. VAGINALIS NEGATIVE NEGATIVE Note: The BD A ffirm VPIII (test code = Microbial Ident ification ) Testis a DNA pr obe test intended for us e in the detectionand id entification of Caitlyn spec ies, Gardnerellavagi nalis and Trichomonas vag inalis nucleic acid. U NLESS OTHERWISE INDIC ATED, ALL TESTING PERFORM ED ATCLINICAL PATHOLOGY LABOR [employer] [address] [place] [address] LABORATOR Y DIRECTOR: ASHLEY ROBERTS M.D. [place] NUMBER [id number] CAP ACCREDITATION N O. VARICELLA ZOSTER [id number] 13:53:47 Test Item Value Reference Range Interpretation Comments VARICELLA ZOSTER IgG 51 INDEX SEE BELOW L INTERP RETATION VZV IgG (test code = 00210) NEGATIVE . . . . . . . . . . . . INDEX < 135 EQUIVOCAL. . . . . . . . . . . . INDEX 1 35-164 NOTE: CONSIDER RETESTING IN A CLINICALLY SUITABLE PERIOD OF TIME, NO SOONER THAN 1-2 WEEKS. POSITIVE . . . . . . . . . . . . INDEX >=165 CT/NG, NAAT, [id number] 13:36:33 Test Item Value Reference Range Interpretation Comments CHLAMYDIA, NAAT, NEGATIVE NEGATIVE A negative result does THINPREP (test code not excl ude low level = 28656) infection, specimensamplin g error, or collection erro r. Testing is performed wi th the Jesus[employer] González 680 systems usingre al-time Polymerase Franck n Reaction (PCR) method. GONORRHEA, NAAT, NEGATIVE NEGATIVE A negative result does THINPREP (test code not excl ude low level = 71787) infection, specimensamplin g error, or collection erro r. Testing is performed wi th the Jesusita González 680 systems usingre al-time Polymerase Franck n Reaction (PCR) method. DRUG ABUSE SCREEN 10 REFLEX [id number] 04:56:34 Test Item Value Reference Range Interpretation Comments AMPHETAMINES (test NEGATIVE NEGATIVE code = 3201) BARBITURATES (test NEGATIVE NEGATIVE code = 3202) BENZODIAZEPINES (test NEGATIVE NEGATIVE code = 3203) CANNABINOIDS (test NEGATIVE NEGATIVE code = 3204) COCAINE METABOLITE NEGATIVE NEGATIVE (test code = 3205) OPIATES (test code = NEGATIVE NEGATIVE 3209) OXYCODONE (test code NEGATIVE NEGATIVE = 82924) PHENCYCLIDINE (test NEGATIVE NEGATIVE code = 3210) METHADONE (test code NEGATIVE NEGATIVE = 3207) BUPRENORPHINE (test NEGATIVE NEGATIVE code = 98912) SOURCE (test code = URINE SEE BELOW FOR 768611) THRESHOLDS AND IMPORTANT METHOD NOTES * ANALYTE SCREENING CUTOF F CONFIRMATORY CUTOFF AMPHETAMINES 5 00 NG/ML 100 NG/MLBARBIT URATES 200 NG/ML 100 NG/MLBENZODIAZE PINES 200 NG/ML 100 NG/MLCANNABINOI DS (THC) 20 NG/ML 15 NG/ MLCOCAINE METABOLITES 150 NG/ML 100 NG/MLOPIATE MET ABOLITES 300 NG/ML 100 NG/MLOXYCODONE 100 NG/ML 100 NG/MLPHENCY CLIDINE (PCP) 25 NG/ML 25 NG/MLMETHADONE 300 NG/ML 100 NG/MLBUPREN ORPHINE 5 NG/ML 5 NG/ML NOTE: Screening metho dology is qualitative Enz yme Immunoassay.The screening method may be l ess sensitive for c ertain medicationsincl uding clonazepam and lorazepam in the benzodia zepine assay andtramad ol or fentanyl in the opiate assay, amongst others. Patientcomplian ce, hydration statu s, timing and dose of med ications, drugabsorption and specimen qualit y may affect screenin g assay.For clini jillian discrepancies, consider directed testin g for specificcompoun ds or contact the lab oratory within specimen stability toforward for confirmatory te sting. This test is sp ecified for medicalpurp oses only. It is not valid for forensic use. U NLESS OTHERWISE INDIC ATED, ALL TESTING PERFORM [facility] [place]. [address] [place] [address] LABORATORY DIRE CTOR: Keon JENNINGS. CLIA NUMBER [id number] CAP ACCREDITATION N O. [id number] OBSTETRIC PANEL + [id number] 04:55:00 Test Item Value Reference Range Interpretation Comments WBC (test code = 11.3 K/UL 3.5-11.0 H 1001) RBC (test code = 4.47 M/UL 3.80-5.40 1002) HEMOGLOBIN (test 12.7 G/DL 11.5-15.5 code = 1003) HEMATOCRIT (test 37.7 % 34.0-45.0 code = 1004) MCV (test code = 84.3 fL 80.0-99.0 1005) MCH (test code = 28.4 PG 25.0-33.0 1006) MCHC (test code = 33.7 G/DL 31.0-36.0 1007) RDW (test code = 12.7 % 11.5-15.0 1038) NEUTROPHILS (test 75.2 % code = 1008) LYMPHOCYTES (test 19.8 % code = 1010) MONOCYTES (test 3.8 % code = 1011) EOSINOPHILS (test 0.5 % code = 1012) BASOPHILS (test 0.3 % code = 1013) IMMATURE 0.4 % GRANULOCYTES (test code = 1036) NUCLEATED RBCS 0.0 /100 WBC'S See_Comment [Automated message] (test code = 1065) The syste m which generated this result transmit jeannie reference range : 0.0. The refere nce range was not u sed to interpret th is result as normal/abnormal . PLATELET COUNT 368 K/UL 130-400 (test code = 1015) ABSOLUTE 8.47 K/UL 1.50-7.50 H NEUTROPHILS (test code = 1066) ABSOLUTE 2.23 K/UL 1.00-4.00 LYMPHOCYTES (test code = 1067) ABSOLUTE MONOCYTES 0.43 K/UL 0.20-1.00 (test code = 1068) ABSOLUTE 0.06 K/UL 0.00-0.50 EOSINOPHILS (test code = 1040) ABSOLUTE BASOPHILS 0.03 K/UL 0.00-0.20 (test code = 1069) ABS IMMATURE 0.04 K/UL 0.00-0.10 GRANULOCYTES (test code = 1020) ABS NUCLEATED RBCS 0.00 K/UL 0.00-0.11 (test code = 14942) BLOOD TYPE AND RH A POSITIVE A HISTORI JILLIAN RECORD (test code = 3901) CHECK FOR PREVIOUS RESULTS IS NOT PERFORMED.THESE RESULTS SHOULD BE CORRELATED WITH RESULTS OF PRIO R BLOODTYPING AND ANTIBODY SCREEN STUDIES. ANTIBODY SCREEN NEGATIVE NEGATIVE A HISTORICA L RECORD (test code = 3902) CHECK FOR PREVIOUS RESULTS IS NOT PERFORMED.THESE RESULTS SHOULD BE CORRELATED WITH RESULTS OF PRIO R BLOODTYPING AND ANTIBODY SCREEN STUDIES. RUBELLA ANTIBODY 10 IU/ML SEE BELOW SCREEN (test code = 4600) RUBELLA IgG INTERP REACTIVE REACTIVE INTERPRE TATION (test code = 16525) UNITS RA NGE NON-REACTIVE/NO N-IMM UNE IU/ML <10 REACTIVE/IMMUNE IU/ML >=10 HEPATITIS B SURF AG NON-REACTIVE NON-REACTIVE (test code = 2739) RPR (test code = NON-REACTIVE NON-REACTIVE 85053) RPR TITER (test NOT INDIC. NOT INDIC. code = 3500) TITER HIV 1/2 4TH GEN, NON-REACTIVE NON-REACTIVE RFLX CONF (test code = 3514) HEPATITIS C REFLEX [id number] 04:55:00 Test Item Value Reference Range Interpretation Comments HEPATITIS C ANTIBODY (test code NON-REACTIVE NON-REACTIVE = 4675) VAGINAL PATHOGENS DNA [id number] 17:28:27 Test Item Value Reference Range Interpretation Comments CAITLYN SPECIES (test NEGATIVE NEGATIVE code = ) G. VAGINALIS (test POSITIVE NEGATIVE A code = ) T. VAGINALIS (test NEGATIVE NEGATIVE UNLESS O THERWISE code = ) INDICATED, ALL TESTING PERFORMED LONG [facility] [address] [place] [address] 4 LABORATORY DIRE CTOR: ASHLEY ROBERTS M.D. CLIA NUMBER [id number] [facility] [place] [id number] VAGINAL PATHOGENS DNA [id number] 00:00:00 Test Item Value Reference Range Interpretation Comments CAITLYN SPECIES (test code = ) NEGATIVE G. VAGINALIS (test code = 76355) POSITIVE T. VAGINALIS (test code = 29389) NEGATIVE VAGINAL PATHOGENS DNA [id number] 00:00:00 Test Item Value Reference Range Interpretation Comments CAITLYN SPECIES (test code = ) NEGATIVE G. VAGINALIS (test code = 92874) POSITIVE T. VAGINALIS (test code = 81049) NEGATIVE VAGINAL PATHOGENS DNA [id number] 00:00:00 Test Item Value Reference Range Interpretation Comments CAITLYN SPECIES (test code = ) NEGATIVE G. VAGINALIS (test code = 27878) POSITIVE T. VAGINALIS (test code = 53140) NEGATIVE VAGINAL PATHOGENS DNA [id number] 00:00:00 Test Item Value Reference Range Interpretation Comments CAITLYN SPECIES (test code = ) NEGATIVE G. VAGINALIS (test code = 95762) POSITIVE T. VAGINALIS (test code = 32406) NEGATIVE CULTURE, [id number] 11:55:32SPECIMEN NUMBER: [id number] CULTURE, URINE SPECIMEN NUMBER: [id number] SPECIMEN COMMENT: URINE SOURCE: URINE REPORT STATUS: FINAL FINAL REPORT: 02/28/2022 10-50,000 CFU/ML UROGENITAL TRENT PRESENT NO CO MMON PATHOGENSCULTURE, [id number] 00:00:00 Test Item Value Reference Range Interpretation Comments CULTURE, URINE (test SPECIMEN NUMBER: code = 04110) [id number] CULTURE, [id number] 00:00:00 Test Item Value Reference Range Interpretation Comments CULTURE, URINE (test SPECIMEN NUMBER: code = 01374) [id number] CULTURE, [id number] 00:00:00 Test Item Value Reference Range Interpretation Comments CULTURE, URINE (test SPECIMEN NUMBER: code = 52803) [id number] CULTURE, [id number] 00:00:00 Test Item Value Reference Range Interpretation Comments CULTURE, URINE (test SPECIMEN NUMBER: code = 33486) [id number] CHLAMYDIA, AMPLIFIED, [id number] 00:00:00 Test Item Value Reference Range Interpretation Comments CHLAMYDIA, NAAT (test code = 11645) NEGATIVE CHLAMYDIA, AMPLIFIED, [id number] 00:00:00 Test Item Value Reference Range Interpretation Comments CHLAMYDIA, NAAT (test code = 64289) NEGATIVE GC, AMPLIFIED, [id number] 00:00:00 Test Item Value Reference Range Interpretation Comments GONORRHEA, NAAT (test code = 53094) NEGATIVE GC, AMPLIFIED, [id number] 00:00:00 Test Item Value Reference Range Interpretation Comments GONORRHEA, NAAT (test code = 70751) NEGATIVE CHLAMYDIA, AMPLIFIED, [id number] 00:00:00 Test Item Value Reference Range Interpretation Comments CHLAMYDIA, NAAT (test code = 22143) NEGATIVE CHLAMYDIA, AMPLIFIED, [id number] 00:00:00 Test Item Value Reference Range Interpretation Comments CHLAMYDIA, NAAT (test code = 67807) NEGATIVE CHLAMYDIA, AMPLIFIED, [id number] 00:00:00 Test Item Value Reference Range Interpretation Comments CHLAMYDIA, NAAT (test code = 34566) NEGATIVE GC, AMPLIFIED, [id number] 00:00:00 Test Item Value Reference Range Interpretation Comments GONORRHEA, NAAT (test code = 52333) NEGATIVE GC, AMPLIFIED, [id number] 00:00:00 Test Item Value Reference Range Interpretation Comments GONORRHEA, NAAT (test code = 52456) NEGATIVE GC, AMPLIFIED, [id number] 00:00:00 Test Item Value Reference Range Interpretation Comments GONORRHEA, NAAT (test code = 70766) NEGATIVE HCG, [id number] 00:00:00 Test Item Value Reference Range Interpretation Comments HCG, QUANTITATIVE (test code = <5 MIU/ML 2506) HCG, [id number] 00:00:00 Test Item Value Reference Range Interpretation Comments HCG, QUANTITATIVE (test code = <5 MIU/ML 2506) HCG, [id number] 00:00:00 Test Item Value Reference Range Interpretation Comments HCG, QUANTITATIVE (test code = <5 MIU/ML 2506) HCG, [id number] 00:00:00 Test Item Value Reference Range Interpretation Comments HCG, QUANTITATIVE (test code = <5 MIU/ML 2506) HCG, [id number] 00:00:00 Test Item Value Reference Range Interpretation Comments HCG, QUANTITATIVE (test code = <5 MIU/ML 2506) HCG, [id number] 00:00:00 Test Item Value Reference Range Interpretation Comments HCG, QUANTITATIVE (test code = <5 MIU/ML 2506) HCG, [id number] 00:00:00 Test Item Value Reference Range Interpretation Comments HCG, QUANTITATIVE (test code = <5 MIU/ML 2506) HCG, [id number] 00:00:00 Test Item Value Reference Range Interpretation Comments HCG, QUANTITATIVE (test code = <5 MIU/ML 2506) HIV AB/AG COMBO RFLX [id number] 00:00:00 Test Item Value Reference Range Interpretation Comments HIV 1/2 4TH GEN, RFLX CONF (test NON-REACTIVE code = 3514) HIV AB/AG COMBO RFLX [id number] 00:00:00 Test Item Value Reference Range Interpretation Comments HIV 1/2 4TH GEN, RFLX CONF (test NON-REACTIVE code = 3514) ACUTE HEPATITIS [id number] 00:00:00 Test Item Value Reference Range Interpretation Comments HEPATITIS A IgM (test code = NON-REACTIVE 65371) HEPATITIS B CORE IgM (test code NON-REACTIVE = 4644) HEPATITIS B SURF AG (test code = NON-REACTIVE 2739) HEPATITIS C ANTIBODY (test code NON-REACTIVE = 4675) INTERPRETATION HEPATITIS A: (NOTE) (test code = 2552) INTERPRETATION HEPATITIS B: (NOTE) (test code = 04403) INTERPRETATION HEPATITIS C: (NOTE) (test code = 84235) ACUTE HEPATITIS [id number] 00:00:00 Test Item Value Reference Range Interpretation Comments HEPATITIS A IgM (test code = NON-REACTIVE 75431) HEPATITIS B CORE IgM (test code NON-REACTIVE = 4644) HEPATITIS B SURF AG (test code = NON-REACTIVE 2739) HEPATITIS C ANTIBODY (test code NON-REACTIVE = 4675) INTERPRETATION HEPATITIS A: (NOTE) (test code = 2552) INTERPRETATION HEPATITIS B: (NOTE) (test code = 33027) INTERPRETATION HEPATITIS C: (NOTE) (test code = 80748) CHLAMYDIA, AMPLIFIED, [id number] 00:00:00 Test Item Value Reference Range Interpretation Comments CHLAMYDIA, NAAT (test code TEST NOT PERFORMED = 80998) CHLAMYDIA, AMPLIFIED, [id number] 00:00:00 Test Item Value Reference Range Interpretation Comments CHLAMYDIA, NAAT (test code TEST NOT PERFORMED = 41655) GC, AMPLIFIED, [id number] 00:00:00 Test Item Value Reference Range Interpretation Comments GONORRHEA, NAAT (test code TEST NOT PERFORMED = 79530) GC, AMPLIFIED, [id number] 00:00:00 Test Item Value Reference Range Interpretation Comments GONORRHEA, NAAT (test code TEST NOT PERFORMED = 23814) HIV AB/AG COMBO RFLX [id number] 00:00:00 Test Item Value Reference Range Interpretation Comments HIV 1/2 4TH GEN, RFLX CONF (test NON-REACTIVE code = 3514) HIV AB/AG COMBO RFLX [id number] 00:00:00 Test Item Value Reference Range Interpretation Comments HIV 1/2 4TH GEN, RFLX CONF (test NON-REACTIVE code = 3514) HIV AB/AG COMBO RFLX [id number] 00:00:00 Test Item Value Reference Range Interpretation Comments HIV 1/2 4TH GEN, RFLX CONF (test NON-REACTIVE code = 3514) ACUTE HEPATITIS [id number] 00:00:00 Test Item Value Reference Range Interpretation Comments HEPATITIS A IgM (test code = NON-REACTIVE 04081) HEPATITIS B CORE IgM (test code NON-REACTIVE = 4644) HEPATITIS B SURF AG (test code = NON-REACTIVE 2739) HEPATITIS C ANTIBODY (test code NON-REACTIVE = 4675) INTERPRETATION HEPATITIS A: (NOTE) (test code = 2552) INTERPRETATION HEPATITIS B: (NOTE) (test code = 32080) INTERPRETATION HEPATITIS C: (NOTE) (test code = 15170) ACUTE HEPATITIS [id number] 00:00:00 Test Item Value Reference Range Interpretation Comments HEPATITIS A IgM (test code = NON-REACTIVE 60579) HEPATITIS B CORE IgM (test code NON-REACTIVE = 4644) HEPATITIS B SURF AG (test code = NON-REACTIVE 2739) HEPATITIS C ANTIBODY (test code NON-REACTIVE = 4675) INTERPRETATION HEPATITIS A: (NOTE) (test code = 2552) INTERPRETATION HEPATITIS B: (NOTE) (test code = 07516) INTERPRETATION HEPATITIS C: (NOTE) (test code = 76257) ACUTE HEPATITIS [id number] 00:00:00 Test Item Value Reference Range Interpretation Comments HEPATITIS A IgM (test code = NON-REACTIVE 86497) HEPATITIS B CORE IgM (test code NON-REACTIVE = 4644) HEPATITIS B SURF AG (test code = NON-REACTIVE 2739) HEPATITIS C ANTIBODY (test code NON-REACTIVE = 4675) INTERPRETATION HEPATITIS A: (NOTE) (test code = 2552) INTERPRETATION HEPATITIS B: (NOTE) (test code = 26652) INTERPRETATION HEPATITIS C: (NOTE) (test code = 65427) CHLAMYDIA, AMPLIFIED, [id number] 00:00:00 Test Item Value Reference Range Interpretation Comments CHLAMYDIA, NAAT (test code TEST NOT PERFORMED = 08884) CHLAMYDIA, AMPLIFIED, [id number] 00:00:00 Test Item Value Reference Range Interpretation Comments CHLAMYDIA, NAAT (test code TEST NOT PERFORMED = 96873) GC, AMPLIFIED, [id number] 00:00:00 Test Item Value Reference Range Interpretation Comments GONORRHEA, NAAT (test code TEST NOT PERFORMED = 59583) GC, AMPLIFIED, [id number] 00:00:00 Test Item Value Reference Range Interpretation Comments GONORRHEA, NAAT (test code TEST NOT PERFORMED = 75547) CHLAMYDIA, AMPLIFIED, [id number] 00:00:00 Test Item Value Reference Range Interpretation Comments CHLAMYDIA, NAAT (test code TEST NOT PERFORMED = 44568) GC, AMPLIFIED, [id number] 00:00:00 Test Item Value Reference Range Interpretation Comments GONORRHEA, NAAT (test code TEST NOT PERFORMED = 94620) [id number] 00:00:00 Test Item Value Reference Range Interpretation Comments RPR RESULT (test code = NON-REACTIVE 3501) RPR TITER (test code = 3500) NOT INDIC. TITER [id number] 00:00:00 Test Item Value Reference Range Interpretation Comments RPR RESULT (test code = NON-REACTIVE 3501) RPR TITER (test code = 3500) NOT INDIC. TITER [id number] 00:00:00 Test Item Value Reference Range Interpretation Comments RPR RESULT (test code = NON-REACTIVE 3501) RPR TITER (test code = 3500) NOT INDIC. TITER [id number] 00:00:00 Test Item Value Reference Range Interpretation Comments RPR RESULT (test code = NON-REACTIVE 3501) RPR TITER (test code = 3500) NOT INDIC. TITER [id number] 00:00:00 Test Item Value Reference Range Interpretation Comments RPR RESULT (test code = NON-REACTIVE 3501) RPR TITER (test code = 3500) NOT INDIC. TITER [id number] 00:00:00 Test Item Value Reference Range Interpretation Comments RPR RESULT (test code = NON-REACTIVE 3501) RPR TITER (test code = 3500) NOT INDIC. TITER [id number] 00:00:00 Test Item Value Reference Range Interpretation Comments RPR RESULT (test code = NON-REACTIVE 3501) RPR TITER (test code = 3500) NOT INDIC. TITER [id number] 00:00:00 Test Item Value Reference Range Interpretation Comments RPR RESULT (test code = NON-REACTIVE 3501) RPR TITER (test code = 3500) NOT INDIC. TITER CULTURE, [id number] 00:00:00 Test Item Value Reference Range Interpretation Comments CULTURE, URINE (test SPECIMEN NUMBER: code = 84204) [id number] CULTURE, [id number] 00:00:00 Test Item Value Reference Range Interpretation Comments CULTURE, URINE (test SPECIMEN NUMBER: code = 96136) [id number] CULTURE, [id number] 00:00:00 Test Item Value Reference Range Interpretation Comments CULTURE, URINE (test SPECIMEN NUMBER: code = 49923) [id number] CULTURE, [id number] 00:00:00 Test Item Value Reference Range Interpretation Comments CULTURE, URINE (test SPECIMEN NUMBER: code = 20037) [id number] CULTURE, [id number] 00:00:00 Test Item Value Reference Range Interpretation Comments CULTURE, URINE (test SPECIMEN NUMBER: code = 65270) [id number] CHLAMYDIA, AMPLIFIED, [id number] 00:00:00 Test Item Value Reference Range Interpretation Comments CHLAMYDIA, NAAT (test code = 83415) NEGATIVE CHLAMYDIA, AMPLIFIED, [id number] 00:00:00 Test Item Value Reference Range Interpretation Comments CHLAMYDIA, NAAT (test code = 14649) NEGATIVE GC, AMPLIFIED, [id number] 00:00:00 Test Item Value Reference Range Interpretation Comments GONORRHEA, NAAT (test code = 69525) NEGATIVE GC, AMPLIFIED, [id number] 00:00:00 Test Item Value Reference Range Interpretation Comments GONORRHEA, NAAT (test code = 81232) NEGATIVE HIV AB/AG COMBO RFLX [id number] 00:00:00 Test Item Value Reference Range Interpretation Comments HIV 1/2 4TH GEN, RFLX CONF (test NON-REACTIVE code = 3514) HIV AB/AG COMBO RFLX [id number] 00:00:00 Test Item Value Reference Range Interpretation Comments HIV 1/2 4TH GEN, RFLX CONF (test NON-REACTIVE code = 3514) [id number] 00:00:00 Test Item Value Reference Range Interpretation Comments RPR RESULT (test code = NON-REACTIVE 3501) RPR TITER (test code = 3500) NOT INDIC. TITER [id number] 00:00:00 Test Item Value Reference Range Interpretation Comments RPR RESULT (test code = NON-REACTIVE 3501) RPR TITER (test code = 3500) NOT INDIC. TITER [id number] 00:00:00 Test Item Value Reference Range Interpretation Comments RPR RESULT (test code = NON-REACTIVE 3501) RPR TITER (test code = 3500) NOT INDIC. TITER CHLAMYDIA, AMPLIFIED, [id number] 00:00:00 Test Item Value Reference Range Interpretation Comments CHLAMYDIA, NAAT (test code = 69682) NEGATIVE CHLAMYDIA, AMPLIFIED, [id number] 00:00:00 Test Item Value Reference Range Interpretation Comments CHLAMYDIA, NAAT (test code = 93010) NEGATIVE CHLAMYDIA, AMPLIFIED, [id number] 00:00:00 Test Item Value Reference Range Interpretation Comments CHLAMYDIA, NAAT (test code = 15154) NEGATIVE GC, AMPLIFIED, [id number] 00:00:00 Test Item Value Reference Range Interpretation Comments GONORRHEA, NAAT (test code = 20663) NEGATIVE GC, AMPLIFIED, [id number] 00:00:00 Test Item Value Reference Range Interpretation Comments GONORRHEA, NAAT (test code = 81465) NEGATIVE HIV AB/AG COMBO RFLX [id number] 00:00:00 Test Item Value Reference Range Interpretation Comments HIV 1/2 4TH GEN, RFLX CONF (test NON-REACTIVE code = 3514) HIV AB/AG COMBO RFLX [id number] 00:00:00 Test Item Value Reference Range Interpretation Comments HIV 1/2 4TH GEN, RFLX CONF (test NON-REACTIVE code = 3514) [id number] 00:00:00 Test Item Value Reference Range Interpretation Comments RPR RESULT (test code = NON-REACTIVE 3501) RPR TITER (test code = 3500) NOT INDIC. TITER [id number] 00:00:00 Test Item Value Reference Range Interpretation Comments RPR RESULT (test code = NON-REACTIVE 3501) RPR TITER (test code = 3500) NOT INDIC. TITER [id number] 00:00:00 Test Item Value Reference Range Interpretation Comments RPR RESULT (test code = NON-REACTIVE 3501) RPR TITER (test code = 3500) NOT INDIC. TITER GC, AMPLIFIED, [id number] 00:00:00 Test Item Value Reference Range Interpretation Comments GONORRHEA, NAAT (test code = 67618) NEGATIVE HIV AB/AG COMBO RFLX [id number] 00:00:00 Test Item Value Reference Range Interpretation Comments HIV 1/2 4TH GEN, RFLX CONF (test NON-REACTIVE code = 3514) [id number] 00:00:00 Test Item Value Reference Range Interpretation Comments RPR RESULT (test code = NON-REACTIVE 3501) RPR TITER (test code = 3500) NOT INDIC. TITER [id number] 00:00:00 Test Item Value Reference Range Interpretation Comments RPR RESULT (test code = NON-REACTIVE 3501) RPR TITER (test code = 3500) NOT INDIC. TITER VAGINAL PATHOGENS DNA [id number] 00:00:00 Test Item Value Reference Range Interpretation Comments CAITLYN SPECIES (test code = ) NEGATIVE G. VAGINALIS (test code = 35914) NEGATIVE T. VAGINALIS (test code = 53904) NEGATIVE VAGINAL PATHOGENS DNA [id number] 00:00:00 Test Item Value Reference Range Interpretation Comments CAITLYN SPECIES (test code = 86727) NEGATIVE G. VAGINALIS (test code = 20700) NEGATIVE T. VAGINALIS (test code = 54823) NEGATIVE VAGINAL PATHOGENS DNA [id number] 00:00:00 Test Item Value Reference Range Interpretation Comments CAITLYN SPECIES (test code = 52466) NEGATIVE G. VAGINALIS (test code = 97034) NEGATIVE T. VAGINALIS (test code = 99261) NEGATIVE VAGINAL PATHOGENS DNA [id number] 00:00:00 Test Item Value Reference Range Interpretation Comments CAITLYN SPECIES (test code = 48425) NEGATIVE G. VAGINALIS (test code = 05687) NEGATIVE T. VAGINALIS (test code = ) NEGATIVE VAGINAL PATHOGENS DNA [id number] 00:00:00 Test Item Value Reference Range Interpretation Comments CAITLYN SPECIES (test code = ) NEGATIVE G. VAGINALIS (test code = ) NEGATIVE T. VAGINALIS (test code = ) NEGATIVE COMPREHENSIVE METABOLIC [id number] 00:00:00 Test Item Value Reference Range Interpretation Comments GLUCOSE (test code = 2217) 94 MG/DL BUN (test code = 2208) 11 MG/DL CREATININE (test code = 2214) 0.63 MG/DL eGFR AMER. (test code 140 ML/MIN/1.73 = 70983) eGFR NON- AMER. (test 120 ML/MIN/1.73 code = 78048) CALC BUN/CREAT (test code = 17 RATIO [...] code = 2219) 30 U/L COMPREHENSIVE METABOLIC [id number] 00:00:00 Test Item Value Reference Range Interpretation Comments GLUCOSE (test code = 2217) 94 MG/DL BUN (test code = 2208) 11 MG/DL CREATININE (test code = 2214) 0.63 MG/DL eGFR AMER. (test code 140 ML/MIN/1.73 = 43806) eGFR NON- AMER. (test 120 ML/MIN/1.73 code = 77777) CALC BUN/CREAT (test code = 17 RATIO [...] code = 2219) 30 U/L COMPREHENSIVE METABOLIC [id number] 00:00:00 Test Item Value Reference Range Interpretation Comments GLUCOSE (test code = 2217) 94 MG/DL BUN (test code = 2208) 11 MG/DL CREATININE (test code = 2214) 0.63 MG/DL eGFR AMER. (test code 140 ML/MIN/1.73 = 34812) eGFR NON- AMER. (test 120 ML/MIN/1.73 code = 53411) CALC BUN/CREAT (test code = 17 RATIO [...] code = 2219) 30 U/L COMPREHENSIVE METABOLIC [id number] 00:00:00 Test Item Value Reference Range Interpretation Comments GLUCOSE (test code = 2217) 94 MG/DL BUN (test code = 2208) 11 MG/DL CREATININE (test code = 2214) 0.63 MG/DL eGFR AMER. (test code 140 ML/MIN/1.73 = 75024) eGFR NON- AMER. (test 120 ML/MIN/1.73 code = 74126) CALC BUN/CREAT (test code = 17 RATIO [...] code = 2219) 30 U/L COMPREHENSIVE METABOLIC [id number] 00:00:00 Test Item Value Reference Range Interpretation Comments GLUCOSE (test code = 2217) 94 MG/DL BUN (test code = 2208) 11 MG/DL CREATININE (test code = 2214) 0.63 MG/DL eGFR AMER. (test code 140 ML/MIN/1.73 = 32194) eGFR NON- AMER. (test 120 ML/MIN/1.73 code = 54031) CALC BUN/CREAT (test code = 17 RATIO [...] = 2219) 30 U/L PAP TEST, THINPREP, [id number] 00:00:00 Test Item Value Reference Range Interpretation Comments SOURCE: (test code = Cervical/Endocervical 8001) SLIDES: (test code = 1 8011) LMP: (test code = 8021) 2020-09-03 SPECIMEN ADEQUACY: (NOTE) (test code = 36182) INTERPRETATION: (test NILM/NO EPITH. code = 61558) ABNORMALITY;SEE BELOW OTHER COMMENTS: (test (NOTE) code = 8081) AVIATION METALSMITH: (test Katherin Ferrari, code = 8101) CT(ASCP)IAC LOCATION: (test code = (NOTE) 06843) CPT: (test code = 8140) (NOTE) PAP TEST, THINPREP, [id number] 00:00:00 Test Item Value Reference Range Interpretation Comments SOURCE: (test code = Cervical/Endocervical 8001) SLIDES: (test code = 1 8011) LMP: (test code = 8021) 2020-09-03 SPECIMEN ADEQUACY: (NOTE) (test code = 52136) INTERPRETATION: (test NILM/NO EPITH. code = 70019) ABNORMALITY;SEE BELOW OTHER COMMENTS: (test (NOTE) code = 8081) AVIATION METALSMITH: (test Katherin Ferrari, code = 8101) CT(ASCP)IAC LOCATION: (test code = (NOTE) 67404) CPT: (test code = 8140) (NOTE) PAP TEST, THINPREP, [id number] 00:00:00 Test Item Value Reference Range Interpretation Comments SOURCE: (test code = Cervical/Endocervical 8001) SLIDES: (test code = 1 8011) LMP: (test code = 8021) 2020-09-03 SPECIMEN ADEQUACY: (NOTE) (test code = 63442) INTERPRETATION: (test NILM/NO EPITH. code = 99428) ABNORMALITY;SEE BELOW OTHER COMMENTS: (test (NOTE) code = 8081) [employer]: (test Katherin Ferrari, code = 8101) CT(ASCP)IAC LOCATION: (test code = (NOTE) 03118) CPT: (test code = 8140) (NOTE) PAP TEST, THINPREP, [id number] 00:00:00 Test Item Value Reference Range Interpretation Comments SOURCE: (test code = Cervical/Endocervical 8001) SLIDES: (test code = 1 8011) LMP: (test code = 8021) 2020-09-03 SPECIMEN ADEQUACY: (NOTE) (test code = 14181) INTERPRETATION: (test NILM/NO EPITH. code = 16593) ABNORMALITY;SEE BELOW OTHER COMMENTS: (test (NOTE) code = 8081) [employer]: (test Katherin Ferrari, code = 8101) CT(ASCP)IAC LOCATION: (test code = (NOTE) 14129) CPT: (test code = 8140) (NOTE) PAP TEST, THINPREP, [id number] 00:00:00 Test Item Value Reference Range Interpretation Comments SOURCE: (test code = Cervical/Endocervical 8001) SLIDES: (test code = 1 8011) LMP: (test code = 8021) 2020-09-03 SPECIMEN ADEQUACY: (NOTE) (test code = 94960) INTERPRETATION: (test NILM/NO EPITH. code = 60060) ABNORMALITY;SEE BELOW OTHER COMMENTS: (test (NOTE) code = 8081) [employer]: (test Katherin Ferrari, code = 8101) CT(ASCP)IAC LOCATION: (test code = (NOTE) 03861) CPT: (test code = 8140) (NOTE) HIV AB/AG COMBO RFLX [id number] 00:00:00 Test Item Value Reference Range Interpretation Comments HIV 1/2 4TH GEN, RFLX CONF (test NON-REACTIVE code = 3514) HIV AB/AG COMBO RFLX [id number] 00:00:00 Test Item Value Reference Range Interpretation Comments HIV 1/2 4TH GEN, RFLX CONF (test NON-REACTIVE code = 3514) GC AND CHLAMYDIA AMPLIFIED, [id number] 00:00:00 Test Item Value Reference Range Interpretation Comments GONORRHEA, TMA (test code = 12483) NEGATIVE CHLAMYDIA, TMA (test code = 20626) NEGATIVE GC AND CHLAMYDIA AMPLIFIED, [id number] 00:00:00 Test Item Value Reference Range Interpretation Comments GONORRHEA, TMA (test code = 33398) NEGATIVE CHLAMYDIA, TMA (test code = 86040) NEGATIVE [id number] 00:00:00 Test Item Value Reference Range Interpretation Comments RPR RESULT (test code = NON-REACTIVE 3501) RPR TITER (test code = 3500) NOT INDIC. TITER [id number] 00:00:00 Test Item Value Reference Range Interpretation Comments RPR RESULT (test code = NON-REACTIVE 3501) RPR TITER (test code = 3500) NOT INDIC. TITER HIV AB/AG COMBO RFLX [id number] 00:00:00 Test Item Value Reference Range Interpretation Comments HIV 1/2 4TH GEN, RFLX CONF (test NON-REACTIVE code = 3514) [id number] 00:00:00 Test Item Value Reference Range Interpretation Comments RPR RESULT (test code = NON-REACTIVE 3501) RPR TITER (test code = 3500) NOT INDIC. TITER [id number] 00:00:00 Test Item Value Reference Range Interpretation Comments TESTOSTERONE (test code = 2830) 43 NG/DL [id number] 00:00:00 Test Item Value Reference Range Interpretation Comments TESTOSTERONE (test code = 2830) 43 NG/DL HPV HIGH RISK WITH GENOTYPE, [id number] 00:00:00 Test Item Value Reference Range Interpretation Comments HPV HIGH RISK INTERP (test code = NEGATIVE 70100) HPV 16 (test code = 95805) NEGATIVE HPV 18 (test code = 19025) NEGATIVE HPV, HR, OTHER GENOTYPES (test code NEGATIVE = 60826) HPV HIGH RISK WITH GENOTYPE, [id number] 00:00:00 Test Item Value Reference Range Interpretation Comments HPV HIGH RISK INTERP (test code = NEGATIVE 32287) HPV 16 (test code = 24049) NEGATIVE HPV 18 (test code = 78318) NEGATIVE HPV, HR, OTHER GENOTYPES (test code NEGATIVE = 64189) GC AND CHLAMYDIA AMPLIFIED, [id number] 00:00:00 Test Item Value Reference Range Interpretation Comments GONORRHEA, TMA (test code = 82476) NEGATIVE CHLAMYDIA, TMA (test code = 67549) NEGATIVE FSH + LH [id number] 00:00:00 Test Item Value Reference Range Interpretation Comments FOLLICLE STIM HORMONE (test code = 7.0 IU/L 2700) LUTEINIZING HORMONE (test code = 12.1 IU/L 2776) FSH + LH [id number] 00:00:00 Test Item Value Reference Range Interpretation Comments FOLLICLE STIM HORMONE (test code = 7.0 IU/L 2700) LUTEINIZING HORMONE (test code = 12.1 IU/L 2776) [id number] 00:00:00 Test Item Value Reference Range Interpretation Comments PROLACTIN (test code = 2800) 12.5 NG/ML [id number] 00:00:00 Test Item Value Reference Range Interpretation Comments PROLACTIN (test code = 2800) 12.5 NG/ML [id number] 00:00:00 Test Item Value Reference Range Interpretation Comments ESTRADIOL (test code = 2505) 39.3 PG/ML [id number] 00:00:00 Test Item Value Reference Range Interpretation Comments ESTRADIOL (test code = 2505) 39.3 PG/ML [id number] 00:00:00 Test Item Value Reference Range Interpretation Comments ESTRADIOL (test code = 2505) 39.3 PG/ML HIV AB/AG COMBO RFLX [id number] 00:00:00 Test Item Value Reference Range Interpretation Comments HIV 1/2 4TH GEN, RFLX CONF (test NON-REACTIVE code = 3514) [id number] 00:00:00 Test Item Value Reference Range Interpretation Comments RPR RESULT (test code = NON-REACTIVE 3501) RPR TITER (test code = 3500) NOT INDIC. TITER HIV AB/AG COMBO RFLX [id number] 00:00:00 Test Item Value Reference Range Interpretation Comments HIV 1/2 4TH GEN, RFLX CONF (test NON-REACTIVE code = 3514) GC AND CHLAMYDIA AMPLIFIED, [id number] 00:00:00 Test Item Value Reference Range Interpretation Comments GONORRHEA, TMA (test code = 66342) NEGATIVE CHLAMYDIA, TMA (test code = 95446) NEGATIVE GC AND CHLAMYDIA AMPLIFIED, [id number] 00:00:00 Test Item Value Reference Range Interpretation Comments GONORRHEA, TMA (test code = 83689) NEGATIVE CHLAMYDIA, TMA (test code = 03160) NEGATIVE [id number] 00:00:00 Test Item Value Reference Range Interpretation Comments RPR RESULT (test code = NON-REACTIVE 3501) RPR TITER (test code = 3500) NOT INDIC. TITER [id number] 00:00:00 Test Item Value Reference Range Interpretation Comments RPR RESULT (test code = NON-REACTIVE 3501) RPR TITER (test code = 3500) NOT INDIC. TITER [id number] 00:00:00 Test Item Value Reference Range Interpretation Comments RPR RESULT (test code = NON-REACTIVE 3501) RPR TITER (test code = 3500) NOT INDIC. TITER [id number] 00:00:00 Test Item Value Reference Range Interpretation Comments RPR RESULT (test code = NON-REACTIVE 3501) RPR TITER (test code = 3500) NOT INDIC. TITER HPV HIGH RISK WITH GENOTYPE, [id number] 00:00:00 Test Item Value Reference Range Interpretation Comments HPV HIGH RISK INTERP (test code = NEGATIVE 50253) HPV 16 (test code = 03265) NEGATIVE HPV 18 (test code = 63218) NEGATIVE HPV, HR, OTHER GENOTYPES (test code NEGATIVE = 85262) HPV HIGH RISK WITH GENOTYPE, [id number] 00:00:00 Test Item Value Reference Range Interpretation Comments HPV HIGH RISK INTERP (test code = NEGATIVE 30167) HPV 16 (test code = 11663) NEGATIVE HPV 18 (test code = 87618) NEGATIVE HPV, HR, OTHER GENOTYPES (test code NEGATIVE = 28518) [id number] 00:00:00 Test Item Value Reference Range Interpretation Comments TESTOSTERONE (test code = 2830) 43 NG/DL [id number] 00:00:00 Test Item Value Reference Range Interpretation Comments TESTOSTERONE (test code = 2830) 43 NG/DL FSH + LH [id number] 00:00:00 Test Item Value Reference Range Interpretation Comments FOLLICLE STIM HORMONE (test code = 7.0 IU/L 2700) LUTEINIZING HORMONE (test code = 12.1 IU/L 2776) FSH + LH [id number] 00:00:00 Test Item Value Reference Range Interpretation Comments FOLLICLE STIM HORMONE (test code = 7.0 IU/L 2700) LUTEINIZING HORMONE (test code = 12.1 IU/L 2776) [id number] 00:00:00 Test Item Value Reference Range Interpretation Comments PROLACTIN (test code = 2800) 12.5 NG/ML [id number] 00:00:00 Test Item Value Reference Range Interpretation Comments PROLACTIN (test code = 2800) 12.5 NG/ML [id number] 00:00:00 Test Item Value Reference Range Interpretation Comments ESTRADIOL (test code = 2505) 39.3 PG/ML [id number] 00:00:00 Test Item Value Reference Range Interpretation Comments ESTRADIOL (test code = 2505) 39.3 PG/ML [id number] 00:00:00 Test Item Value Reference Range Interpretation Comments ESTRADIOL (test code = 2505) 39.3 PG/ML [id number] 00:00:00 Test Item Value Reference Range Interpretation Comments TESTOSTERONE (test code = 2830) 43 NG/DL HPV HIGH RISK WITH GENOTYPE, [id number] 00:00:00 Test Item Value Reference Range Interpretation Comments HPV HIGH RISK INTERP (test code = NEGATIVE 96080) HPV 16 (test code = 17369) NEGATIVE HPV 18 (test code = 86123) NEGATIVE HPV, HR, OTHER GENOTYPES (test code NEGATIVE = 92098) FSH + LH [id number] 00:00:00 Test Item Value Reference Range Interpretation Comments FOLLICLE STIM HORMONE (test code = 7.0 IU/L 2700) LUTEINIZING HORMONE (test code = 12.1 IU/L 2776) [id number] 00:00:00 Test Item Value Reference Range Interpretation Comments PROLACTIN (test code = 2800) 12.5 NG/ML [id number] 00:00:00 Test Item Value Reference Range Interpretation Comments ESTRADIOL (test code = 2505) 39.3 PG/ML [id number] 00:00:00 Test Item Value Reference Range Interpretation Comments ESTRADIOL (test code = 2505) 39.3 PG/ML VAGINAL PATHOGENS DNA [id number] 00:00:00 Test Item Value Reference Range Interpretation Comments CAITLYN SPECIES (test code = 35211) NEGATIVE G. VAGINALIS (test code = 89829) NEGATIVE T. VAGINALIS (test code = 31316) POSITIVE VAGINAL PATHOGENS DNA [id number] 00:00:00 Test Item Value Reference Range Interpretation Comments CAITLYN SPECIES (test code = ) NEGATIVE G. VAGINALIS (test code = ) NEGATIVE T. VAGINALIS (test code = ) POSITIVE VAGINAL PATHOGENS DNA [id number] 00:00:00 Test Item Value Reference Range Interpretation Comments CAITLYN SPECIES (test code = ) NEGATIVE G. VAGINALIS (test code = 03983) NEGATIVE T. VAGINALIS (test code = 02714) POSITIVE VAGINAL PATHOGENS DNA [id number] 00:00:00 Test Item Value Reference Range Interpretation Comments CAITLYN SPECIES (test code = ) NEGATIVE G. VAGINALIS (test code = 90144) NEGATIVE T. VAGINALIS (test code = 33727) POSITIVE VAGINAL PATHOGENS DNA [id number] 00:00:00 Test Item Value Reference Range Interpretation Comments CAITLYN SPECIES (test code = ) NEGATIVE G. VAGINALIS (test code = 80562) NEGATIVE T. VAGINALIS (test code = 70812) POSITIVE
--- NOTE | 2023-01-15 04:13 | EDPHYS ---
Physician Documentation [facility] Name: Carlyn Rodas Age: 32 yrs Sex: Female : 1990 Arrival Date: 01/15/2023 Time: 00:28 Bed 29 Private MD: ED Physician Talha Delatorre HPI: 01/15 01:10 This 32 yrs old Female presents to ER via Unassigned with complaints of Cough, cp Chest Tightness, EST 30 WKS GESTATION. 01:10 The patient or guardian reports cough, that is constant, with productive sputum. Onset: cp The symptoms/episode began/occurred 2 day(s) ago. Associated signs and symptoms: Pertinent negatives: diarrhea, fever, sore throat, vomiting. Historical: - Allergies: 02:18 No Known Allergies; pf1 - Home Meds: 02:18 Vitamin Oral [Active]; pf1 - PMHx: 02:18 ADHD; pf1 - PSHx: 02:18 None; pf1 - Immunization history:: Adult Immunizations up to date, Client reports receiving the 2nd dose of the Covid vaccine, Last tetanus immunization: > 10 years ago Flu vaccine is not up to date. - Social history:: Smoking status: Patient denies any tobacco usage or history of. Patient/guardian denies using alcohol, street drugs. ROS: 01:15 Constitutional: Negative for body aches, chills, fever, poor PO intake. cp 01:15 Eyes: Negative for injury, pain, redness, and discharge. cp 01:15 ENT: Negative for drainage from ear(s), ear pain, sore throat, difficulty swallowing, difficulty handling secretions. 01:15 Cardiovascular: Negative for chest pain, edema, palpitations. 01:15 Respiratory: Positive for cough, shortness of breath. 01:15 Abdomen/GI: Negative for abdominal pain, vomiting, diarrhea, constipation. 01:15 Neuro: Negative for altered mental status, dizziness, headache, weakness. 01:15 All other systems are negative. Exam: 01:20 Constitutional: The patient appears in no acute distress, alert, awake, non-toxic, well cp developed, well nourished. 01:20 Head/Face: Normocephalic, atraumatic. cp 01:20 Eyes: Periorbital structures: appear normal, Conjunctiva: normal, no exudate, no injection, Sclera: no appreciated abnormality, Lids and lashes: appear normal, bilaterally. 01:20 ENT: External ear(s): are unremarkable, Nose: is normal, Mouth: Lips: moist, Oral mucosa: moist, Posterior pharynx: Airway: no evidence of obstruction, patent, Tonsils: no enlargement, no exudate, erythema, that is mild, exudate, is not appreciated. 01:20 Neck: ROM/movement: is normal, is supple, without pain, no range of motions limitations, no meningismus, no nuchal rigidity, Lymph nodes: no appreciated lymphadenopathy. 01:20 Chest/axilla: Inspection: normal. 01:20 Cardiovascular: Rate: normal. 01:20 Respiratory: the patient does not display signs of respiratory distress, Respirations: normal, no use of accessory muscles, no retractions, labored breathing, is not present, Breath sounds: decreased breath sounds, are not appreciated, stridor, is not appreciated, + upper airway congestion. wheezing: is not appreciated. 01:20 Abdomen/GI: Inspection: gravid appearance, is noted. Vital Signs: 02:13 BP 103 / 61; Pulse 97; Resp 18; Temp 97.9(O); Pulse Ox 100% ; Weight 64.41 kg; Height 5 pf1 ft. 2 in. ; Pain 7/10; 02:13 Body Mass Index 25.97 (64.41 kg, 157.48 cm) pf1 02:13 Pain Scale: Adult pf1 MDM: 02:24 Patient medically screened. cp 04:13 Differential Diagnosis: Bronchitis Influenza Upper Respiratory Infection. Data ms3 reviewed: vital signs, nurses notes, lab test result(s), and as a result, I will discharge patient. Counseling: I had a detailed discussion with the patient and/or guardian regarding: the historical points, exam findings, and any diagnostic results supporting the discharge/admit diagnosis, lab results, the need for outpatient follow up, to return to the emergency department if symptoms worsen or persist or if there are any questions or concerns that arise at home. Special discussion: I discussed with the patient/guardian in detail that at this point there is no indication for admission to the hospital. It is understood, however, that if the symptoms persist or worsen the patient needs to return immediately for re-evaluation. ED course: On reevaluation patient is alert and orient x4, no apparent distress, nontoxic-appearing, speaking full sentences. Discussed necessity follow-up with her primary care physician in 2 to 3 days. Patient understands and agrees with plan. All questions were answered. Return precautions discussed include worsening symptoms, or any other concerns. 01/15 01:00 Order name: COVID-19 SARS RT PCR; Complete Time: 04:06 pf1 01/15 01:00 Order name: Influenza Screen (a \T\ B); Complete Time: 04:02 pf1 01/15 01:00 Order name: Strep; Complete Time: 04:02 pf1 01/15 03:54 Order name: Throat Culture EDMS Administered Medications: No medications were administered Disposition: 04:12 Co-signature as Attending Physician, Talha Delatorre DO. ms3 04:14 Co-signature as Attending PhysicianTalha DO. ms3 04:14 Patient signed out to me at 0340. ms3 Disposition Summary: 01/15/23 04:12 Discharge Ordered Location: Home ms3 Condition: Stable ms3 Diagnosis - Cough ms3 Followup: ms3 - With: Private Physician - When: 2 - 3 days - Reason: Recheck today's complaints Discharge Instructions: - Discharge Summary Sheet ms3 - Cough, Adult ms3 Forms: - Medication Reconciliation Form ms3 - Thank You Letter ms3 - Antibiotic Education ms3 - Prescription Opioid Use ms3 Signatures: Dispatcher [employer] EDMS Schuyler Torres PA PA cp Sims, Marcus, DO DO ms3 Marlen Jackson RN RN pf1 Corrections: (The following items were deleted from the chart) 02:20 02:18 Home Meds: None; pf1 pf1 04:13 03:14 Co-signature as Attending Physician, Talha Delatorre DO I was immediately available ms3 on-site in the Emergency Department for consultation in the care of the patient. ms3
--- NOTE | 2023-01-15 04:13 | ER ---
Nurse's Notes [facility] Name: Carlyn Rodas Age: 32 yrs Sex: Female : 1990 Arrival Date: 01/15/2023 Time: 00:28 Bed 29 Private MD: Diagnosis: Cough Presentation: 01/15 02:13 Chief complaint: Patient states: cough, congestion, chills, onset 3 days. Patient pf1 stated is currently 30 weeks , . Coronavirus screen: Vaccine status: Patient reports receiving the 2nd dose of the covid vaccine. Client denies travel out of the [place] in the last 14 days. Client presents with at least one sign or symptom that may indicate coronavirus-19. Standard/surgical mask placed on the client. Ebola Screen: Patient negative for fever greater than or equal to 101.5 degrees Fahrenheit, and additional compatible Ebola Virus Disease symptoms. Initial Sepsis Screen: Does the patient meet any 2 criteria? No. Patient's initial sepsis screen is negative. Does the patient have a suspected source of infection? No. Patient's initial sepsis screen is negative. Risk Assessment: Do you want to hurt yourself or someone else? Patient reports no desire to harm self or others. 02:13 Method Of Arrival: Ambulatory pf1 02:13 Acuity: FERNANDO 4 pf1 04:23 Onset of symptoms was January 12, 2023. ll3 Triage Assessment: 02:18 General: Appears comfortable, Behavior is calm, cooperative. General: Reports chills ll3 for 2-3 days. Pain: Denies pain. Neuro: Level of Consciousness is awake, alert, obeys commands, Oriented to person, place, time, situation. Cardiovascular: Patient's skin is warm and dry. Respiratory: Reports cough that is congestion Respiratory effort is even, unlabored, Respiratory pattern is regular, symmetrical. Derm: Skin is pink, warm \T\ dry. Historical: - Allergies: 02:18 No Known Allergies; pf1 - Home Meds: 02:18 Vitamin Oral [Active]; pf1 - PMHx: 02:18 ADHD; pf1 - PSHx: 02:18 None; pf1 - Immunization history:: Adult Immunizations up to date, Client reports receiving the 2nd dose of the Covid vaccine, Last tetanus immunization: > 10 years ago Flu vaccine is not up to date. - Social history:: Smoking status: Patient denies any tobacco usage or history of. Patient/guardian denies using alcohol, street drugs. Screenin:18 [facility] ED Fall Risk Assessment (Adult) History of falling in the last 3 months, ll3 including since admission No falls in past 3 months (0 pts) Confusion or Disorientation No (0 pts) Intoxicated or Sedated No (0 pts) Impaired Gait No (0 pts) Mobility Assist Device Used No (0 pt) Altered Elimination No (0 pt) Score/Fall Risk Level 0 - 2 = Low Risk Oriented to surroundings, Maintained a safe environment, Educated pt \T\ family on fall prevention, incl call for assistance when getting out of bed. Abuse screen: Denies threats or abuse. Denies injuries from another. Nutritional screening: No deficits noted. Tuberculosis screening: No symptoms or risk factors identified. Assessment: 02:18 General: See triage assessment. ll3 03:50 Reassessment: patient provided with Gaterade. ll3 Vital Signs: 02:13 BP 103 / 61; Pulse 97; Resp 18; Temp 97.9(O); Pulse Ox 100% ; Weight 64.41 kg; Height 5 pf1 ft. 2 in. ; Pain 7/10; 02:13 Body Mass Index 25.97 (64.41 kg, 157.48 cm) pf1 02:13 Pain Scale: Adult pf1 ED Course: 00:32 Patient arrived in ED. jj6 00:34 Schuyler Torres PA is PHCP. cp 00:34 Talha Delatorre DO is Attending Physician. cp 02:18 Triage completed. pf1 02:30 Patient has correct armband on for positive identification. Placed in gown. Bed in low ll3 position. Call light in reach. Side rails up X 1. 02:30 Pulse ox on. NIBP on. ll3 02:30 Arm band placed on Patient placed in the treatment room, on a stretcher, on pulse ll3 oximetry. 03:30 Strep Sent. ll3 03:30 Influenza Screen (a \T\ B) Sent. ll3 03:30 COVID-19 SARS RT PCR Sent. ll3 04:22 No provider procedures requiring assistance completed. Patient did not have IV access ll3 during this emergency room visit. Patient maintains SpO2 saturation greater than 95% on room air. Administered Medications: No medications were administered Medication: 04:19 VIS not applicable for this client. ll3 Outcome: 04:12 Discharge ordered by MD. ms3 04:22 Discharged to home ambulatory. ll3 04:22 Condition: stable 04:22 Discharge instructions given to patient, Instructed on discharge instructions, follow up and referral plans. Demonstrated understanding of instructions, follow-up care. 04:23 Patient left the ED. ll3 Signatures: Schuyler Torres PA PA cp Sims, Marcus, DO DO ms3 Sherry yT jj6 Naa Mills RN RN ll3 Marlen Jackson RN RN pf1 Corrections: (The following items were deleted from the chart) 02:20 02:18 Home Meds: None; pf1 pf1
[2023-01-15 04:34] VITALS: BP 103/61; TEMP 97.9; O2SAT 100
== END 2023-01-15 04:23 | disposition home or self-care (01) ==
LOC: ER 00:28
DX: O99.513 Diseases of the respiratory system complicating pregnancy, third trimester (principal); R05.9 Cough, unspecified; Z3A.30 30 weeks gestation of pregnancy; Z20.822 Contact with and (suspected) exposure to COVID-19
CPT/HCPCS: 87070; 87081; 87635; 87804; 99284

== ENCOUNTER 2024-02-09 15:18 | Emergency (ER) | payer OTHER ==
--- OUTSIDE RECORDS SUMMARY | 2024-02-09 15:27 | XMS REPORT | Continuity of Care Document ---
Author Name Unknown Address [address] [facility] [address] [place] [address] [facility] Address [address] [facility] [address] [place] [address] Care Team Providers Care International Account Manager Name Role Phone Renetta SQUIRES, [facility] Primary Care Physician [phone] MENDOZA WASHBURN Attending Clinician Unavailable GIULIA QUINTERO Attending Clinician Unavailable HOSSIEN GARCIA Attending Clinician Unavailable Hossein Garcia MD Attending Clinician [phone] Giulia Hernandes Attending Clinician [phone] Mendoza Washburn MD Attending Clinician [phone] Doctor Unassigned, [place] Attending Clinician U Stalin Aly MD Attending Clinicia n Beckie Mace MD Attending Clinician [phone] Antelmo Irwin CRNA Attending Clinician [phone] Pob, [facility] Main Attending Clinician UnavailSADIA Aviles Attending Clinician SADIA Howell Attending Clinician Rochelle johns 2, [facility] Attending Clinician Unavailable Aminata ROSALES, Indira Attending Clinician Ultrasound, Ang-Mfm Attending Clinician Unavaila shahbaz Samayoa MD, Joiner Attending Clinician + BURGOS CHAIM, JOINER Attending Clinician Unaviri bindu LYNNKIRAINDIRA ARCOS Attending Clinician Unavaila ble VIVIANE URIARTE Attending Clinician Unavailable Viviane Uriarte MD Attending Clinician [phone] Kassidy Olvera Attending Clinician [phone] PATY SADIA Admitting Clinician MENDOZA Doherty Admitting Clinician Unavailable Mendoza Washburn MD Admitting Clinician [phone] VIVIANE URIARTE Admitting Clinician Unavailable Viviane Uriarte MD Admitting Clinician [phone] Payers Payer Name Policy Type Policy Number Effective Date Expirati on Date Source MANAGED MEDICAID GENERIC NON-CONTRACT [id number] 2023 00:00:00 [facility] [id number] 2022 00:00:00 2023 00:00:00 Problems Condition Name Condition Details Condition Category Status Onset Date Resolution Date Last Treatment Date Treating Clinician Comments Source 39 weeks gestation of 39 weeks gestation of Disease Active 8-03 00:00: 00 [facility] Liveborn infant, of [place] , born in hospital by vaginal delivery Liveborn , of [place] , born in hospital by vaginal delivery Disease Active 8-03 00:00: 00 [facility] Vacuum-ass isted vaginal delivery Vacuum-ass isted vaginal delivery Disease Active 8- 00:00: 00 [facility] Positive GBS test Positive GBS test Disease Active 8- 00:00: 00 [facility] Obesity (BMI 30-39.9) Obesity (BMI 30-39.9) Disease Active 7-25 00:00: 00 [facility] Chlamydia trachomati s infection of lower genitourin jose luis sites Chlamydia trachomati s infection of lower genitourin jose luis sites Disease Active 7-13 00:00: 00 [facility] High-risk in third trimester High-risk in third trimester Disease Active 2023-0 6-26 00:00: 00 [facility] uterine contractio ns in third trimester, antepartum uterine contractio ns in third trimester, antepartum Disease Active 6-14 00:00: 00 [facility] Heartburn during , antepartum Heartburn during , antepartum Disease Active 6 00:00: 00 [facility] Acute lower respirator y infection Acute lower respirator y infection Disease Active 6 00:00: 00 [facility] Need for Tdap vaccinatio n Need for Tdap vaccinatio n Disease Active 6 00:00: 00 [facility] Insufficie nt care in third trimester Insufficie nt care in third trimester Disease Active 2 00:00: 00 [facility] Obesity in , antepartum Obesity in , antepartum Disease Active 09-27 00:00: 00 [facility] Transporta tion insecurity Transporta tion insecurity Disease Active 2 00:00: 00 [facility] Other and unspecifie d diseases of the oral soft tissues Other and unspecifie d diseases of the oral soft tissues Disease Active 05-10 00:00: 00 Overview: Formattin g of this note might be different from the original. Added automatic ally from request for surgery [id number] [facility] Allergies, Adverse Reactions, Alerts Allergy Name Allergy Type Status Severity Reaction(s) Onset Date Inactive Date Treating Clinician Comments Source [place] - Intraven ous Propensi ty to adverse reaction to drug Active 02-25 00:00: 00 NO KNOWN ALLERGIE S Drug Class Active [facility] Social History Social Habit Start Date Stop Date Quantity Comments Source ASSERTION 2022-07-04 00:00:00 [facility] Gender identity [facility] Alcohol intake 2023-09-29 00:00:00 2023-09-29 00:00:00 Ex-drinker (finding) [facility] History of Social function 2023-08-30 00:00:00 2023-08-30 00:00:00 [facility] Exposure to SARS-CoV-2 (event) 2023-01-09 00:00:00 2023-01-19 15:07:00 Not sure [facility] Tobacco use and exposure 2022-09-27 00:00:00 2022-09-27 00:00:00 Smokeless tobacco non-user [facility] Cigarettes smoked current (pack per day) - Reported 2022-09-27 00:00:00 2022-09-27 00:00:00 [facility] History of tobacco use 2014-08-22 00:00:00 Cigarette Smoker [facility] Sex Assigned At 1990 00:00:00 1990 00:00:00 [facility] Smoking Status Start Date Stop Date Source Ex-smoker 2022-09-27 00:00:00 2022-09-27 00[facility]00[facility] Medications Ordered Medication Name Filled Medication Name Start Date Stop Date Current Medication? Ordering Clinician Indication Dosage Frequency Signature (SIG) Comments Components Source methylPREDN ISolone (MEDROL, ZULAY,) 4 mg tablets 09-16 00:00: 00 Yes [id number] Take by mouth SEE-INSTRU CTIONS. follow package directions [facility] amoxicillin 875 mg tablet 08-30 00:00: 00 09-10 05:59 :00 No [id number] 875mg Take 1 tablet by mouth in the morning and 1 tablet in the evening. Do all this for 10 days. [facility] etonogestre L (NEXPLANON) implant 68 mg 05-03 14:45: 00 05-03 14:04 :00 No [id number] 68mg [facility] rho(D) immune globulin (RHOGAM) syringe 300 mcg 03-25 06:03: 57 Yes 300ug 300 mcg, Intramuscu lar, ONCE, For 1 dose, Conditiona l, Routine [facility] witch Troy (TUCKS) 50 % topical pad 03-25 06:03: 38 Yes Topical, Q4HPRN, Starting on Tue03/25/23 at 0103, Until Discontinu ed, Routine, rectal/hem orrhoidal pain [facility] HYDROcodone -acetaminop hen (NORCO 5) 5-325 mg tablet 1 tablet 03-25 06:03: 38 Yes 1{tbl} 1 tablet, Oral, Q6HPRN, Starting on Tue03/25/23 at 0103, Until Discontinu ed, Routine, Pain (scale 7-10) [facility] ibuprofen (IBU) tablet 600 mg 03-25 06:03: 38 Yes 600mg 600 mg, Oral, Q6HPRN, Starting on Tue03/25/23 at 010, Until Discontinu ed, Routine, Pain (scale 4-6) [facility] acetaminoph en (TYLENOL) tablet 650 mg 03-25 06:03: 38 Yes 650mg 650 mg, Oral, Q6HPRN, Starting on Tue03/25/23 at 0103, Until Discontinu ed, Routine, Pain (scale 1-3) [facility] diphenhydrA MINE (BENADRYL) tablet 25 mg 03-25 06:03: 38 Yes 25mg 25 mg, Oral, Q6HPRN, Starting on Tue03/25/23 at 0103, Until Discontinu ed, Routine, Sleep, Itching [facility] ondansetron (ZOFRAN (PF)) injection 4 mg 03-25 06:03: 38 Yes 4mg 4 mg, Slow IV Push, Q8HPRN, Starting on Tue03/25/23 at 0103, Until Discontinu ed, Routine, Nausea and Vomiting (N/V) [facility] simethicone (GAS RELIEF (SIMETHICON E)) chewable tablet 160 mg 03-25 06:03: 38 Yes 160mg 160 mg, Oral, PC+HSPRN, Starting on Tue03/25/23 at 0103, Until Discontinu ed, Routine, Gas [facility] docusate (COLACE) capsule 200 mg 03-25 06:03: 38 Yes 200mg 200 mg, Oral, QDAILYPRN, Starting on Tue03/25/23 at 0103, Until Discontinu ed, Routine, Constipati on [facility] magnesium hydroxide (MILK OF MAGNESIA) 400 mg/5 mL suspension 30 mL 03-25 06:03: 38 Yes 30mL 30 mL, Oral, QDAILYPRN, Starting on Tue03/25/23 at 0103, Until Discontinu ed, Routine, Constipati on [facility] benzocaine- menthol (DERMOPLAST ) 20-0.5 % topical spray 03-25 06:03: 38 Yes Topical, PRN, Starting on Tue03/25/23 at 010, Until Discontinu ed, Routine, Perineum discomfort [facility] oxytocin (PITOCIN) 30 units in NS 500 mL IV infusion 03-25 01:46: 12 03-25 06:03 :55 No 300mL/h 300 mL/hr, IV Infusion, SEE-INSTRU CTIONS, Starting on Tue03/24/[address] at 300 mL/hr for 1 hr then 150 mL/hr for 1 hr. For post delivery uterotonic .
[facility] ferrous sulfate 325 mg (65 mg iron) tablet 03-25 00:00: 00 Yes [id number] 325mg Take 1 tablet by mouth in the morning and 1 tablet in the evening. [facility] vitamin w/FA tablet 03-25 00:00: 00 09-16 00:00 :00 No [id number] 1{tbl} Take 1 tablet by mouth in the morning. [facility] docusate 100 mg capsule 03-25 00:00: 00 05-03 00:00 :00 No [id number] 200mg Take 2 capsules by mouth once daily as needed for Constipati on. [facility] ibuprofen 600 mg tablet 03-25 00:00: 00 05-03 00:00 :00 No [id number] 600mg Take 1 tablet by mouth every 6 (six) hours as needed (Pain). Take with food or milk. [facility] fentaNYL-ro pivacaine 2 mcg/mL-0.1 % (PF) in NS 200 mL epidural infusion RTU 03-24 14:29: 00 03-25 02:36 :21 No Epidural, CONTINUOUS PRN, Starting on Chiara 03/24/23 at 0929, Until Discontinu ed, Routine, Intra-op [facility] lidocaine-e pinephrine (XYLOCAINE W/EPINEPHRI NE) 1.5 %-1:200,000 injection 03-24 14:27: 00 03-25 02:36 :21 No Intraderma l, ONCE INTRA PROCEDURE, Starting on Chiara 03/24/23 at 0927, Until Discontinu ed, Routine, Intra-op [facility] oxytocin (PITOCIN) 30 units in NS 500 mL IV infusion 03-24 12:33: 37 03-25 06:03 :55 No 2mU/min at 2-40 mL/hr, IV Infusion, TITRATE, Starting on Chiara 03/24/23 at 0733, Until Tue03/25/23 at 0103, SULEMAN [facility] misoprostol (CYTOTEC) quarter-tab let 25 mcg 03-24 06:45: 00 03-24 08:21 :00 No 25ug 25 mcg, Oral, ONCE, 1 dose, On Chiara 03/24/23 at 0145, Routine [facility] lactated ringers IV infusion 500 mL 03-24 06:44: 26 03-25 06:03 :55 No 500mL at 999 mL/hr, 500 mL, IV Infusion, PRN - SEE INSTRUCTIO NS, Starting on Chiara 03/24/23 at 0144, Until Tue03/25/23 at 0103, Routine [facility] ondansetron (ZOFRAN (PF)) injection 4 mg 03-24 06:44: 26 03-25 06:03 :55 No 4mg 4 mg, Slow IV Push, Q8HPRN, Nausea and Vomiting (N/V), Starting on Chiara 03/24/23 at 0144
Do ses of ondansetro n 16 mg and above need to be administer ed via IV piggyback. For Dose >=24mg ECG monitoring is advisable.
[facility] FENTanyl PF (SUBLIMAZE (PF)) injection 100 mcg 03-24 06:44: 26 03-25 06:03 :55 No 100ug 100 mcg, Slow IV Push, Q1HPRN, Starting on Tue03/24/23 at 0144, Until Tue03/25/23 at 0103, Routine, contractio n pain without an epidural and SVE < 8 cm and Cat I strip [facility] D5W-LR IV infusion 1,000 mL 03-24 06:44: 03-25 06:03 :55 No 1000mL at 1-125 mL/hr, IV Infusion, TITRATE, Starting on Tue03/24/23 at 0144, Until Tue03/25/23 at 0103, Routine [facility] azithromyci n 500 mg tablet 03-03 00:00: 00 03-04 04:59 :00 No [id number] 1000mg Take 2 tablets by mouth once now for 1 dose. [facility] albuterol 90 mcg/actuati on inhaler 02-14 00:00: 00 Yes [id number] 2{puff} Inhale 2 Puffs every 6 (six) hours as needed for Wheezing, Shortness of Breath, Bronchospa sm or Chest tightness. [facility] terbutaline (BRETHINE) injection 0.25 mg 02-02 04:15: 00 02-02 04:11 :00 No .25mg 0.25 mg, Subcutaneo us, ONCE, 1 dose, On Tue02/01/23 at 2315, Routine [facility] NaCl 0.9% (NS) bolus infusion 1,000 mL 02-02 02:00: 00 02-02 01:36 :47 No 1000mL at 999 mL/hr, 1,000 mL, IV Infusion, ONCE, 1 dose, On Tue02/01/23 at 2100, STAT [facility] omeprazole 20 mg capsule 01-19 00:00: 00 03-25 00:00 :00 No [id number] 20mg Take 1 capsule by mouth in the morning. [facility] azithromyci n (ZITHROMAX Z-ZULAY) 250 mg tablet 01-19 00:00: 00 02-14 00:00 :00 No [id number] Take two tablets, orally, on day one; then take one tablet, orally, days two through five. [facility] guaiFENesin (MUCINEX) 600 mg tablet 01-19 00:00: 00 02-14 00:00 :00 No [id number] 600mg Take 1 tablet by mouth every 12 (twelve) hours. [facility] TAKE 1 TABLET BY MOUTH EVERY 12 HOURS FOR 30 DAYS 09-08 00:00: 00 No AMOX-CLAV 875-125 MG TABLET 09-08 00:00: 00 No DISSOLVE 1 TABLET IN MOUTH EVERY 4 TO 6 HOURS 0 03-31 00:00: 00 No 4 TAKE 1 CAPSULE BY MOUTH EVERY 8 HOURS FOR 10 DAYS 0 03-31 00:00: 00 No 300 USE DIRECTED TWICE DAILY TO AFFECTED AREA 0 03-31 00:00: 00 No TAKE 1 TABLET TWICE DAILY UNTIL FINISHED. 0 03-31 00:00: 00 No 500 TAKE 1 TABLET BY MOUTH EVERY 12 HOURS 0 03-31 00:00: 00 No DISSOLVE 1 TABLET IN MOUTH EVERY 4 TO 6 HOURS 0 03-31 00:00: 00 No 4 TAKE 1 CAPSULE BY MOUTH EVERY 8 HOURS FOR 10 DAYS 0 03-31 00:00: 00 No 300 USE DIRECTED TWICE DAILY TO AFFECTED AREA 0 03-31 00:00: 00 No TAKE 1 TABLET TWICE DAILY UNTIL FINISHED. 0 03-31 00:00: 00 No 500 TAKE 1 TABLET BY MOUTH EVERY 12 HOURS 0 - 00:00: 00 No &lt 2021-0 7-12 00:00: 00 No 20 &lt 2021-0 7-12 00:00: 00 No 20 TAKE 1 TABLET BY MOUTH EVERY 12 HOURS FOR 30 DAYS 2021-0 02-26 00:00: 00 No 20 DISSOLVE 1 TABLET IN MOUTH EVERY 4 TO 6 HOURS 2021-0 02-26 00:00: 00 No 4 TAKE 1 TABLET BY MOUTH EVERY 12 HOURS FOR 30 DAYS 2021-0 02-26 00:00: 00 No 20 DISSOLVE 1 TABLET IN MOUTH EVERY 4 TO 6 HOURS 2021-0 02-26 00:00: 00 No 4 TAKE 1 TABLET BY MOUTH EVERY 12 HOURS FOR 30 DAYS 2021-0 02-26 00:00: 00 No 20 DISSOLVE 1 TABLET IN MOUTH EVERY 4 TO 6 HOURS 2021-0 02-26 00:00: 00 No 4 USE DIRECTED TWICE DAILY TO AFFECTED AREA 2021-0 02-25 00:00: 00 No USE DIRECTED TWICE DAILY TO AFFECTED AREA 2021-0 02-25 00:00: 00 No USE DIRECTED TWICE DAILY TO AFFECTED AREA 2021-0 02-25 00:00: 00 No ibuprofen 600 mg tablet 2021-0 2-11 00:00: 00 No 1mg ibuprofen 600 mg tablet 2021-0 2-11 00:00: 00 No 1mg ibuprofen 600 mg tablet 2021-0 2-11 00:00: 00 No 1mg diclofenac sodium 75 mg tablet,zeferino yed release 0 03-18 00:00: 00 No 1mg cyclobenzap rine 10 mg tablet 0 03-18 00:00: 00 No 1mg diclofenac sodium 75 mg tablet,zeferino yed release 0 03-18 00:00: 00 No 1mg cyclobenzap rine 10 mg tablet 0 03-18 00:00: 00 No 1mg diclofenac sodium 75 mg tablet,zeferino yed release 0 03-18 00:00: 00 No 1mg cyclobenzap rine 10 mg tablet 0 03-18 00:00: 00 No 1mg triamcinolo ne acetonide 0.1 % topical ointment 0 03-07 00:00: 00 No 1% clotrimazol e 1 % topical cream 0 03-07 00:00: 00 No 1% triamcinolo ne acetonide 0.1 % topical ointment 0 03-07 00:00: 00 No 1% clotrimazol e 1 % topical cream 03-07 00:00: 00 No 1% triamcinolo ne acetonide 0.1 % topical ointment 03-07 00:00: 00 No 1% clotrimazol e 1 % topical cream 03-07 00:00: 00 No 1% Macrobid 100 mg capsule 03-02 00:00: 00 No 1mg Macrobid 100 mg capsule 03-02 00:00: 00 No 1mg Macrobid 100 mg capsule 03-02 00:00: 00 No 1mg Zyrtec 10 mg tablet 01-21 00:00: 00 No 1mg Zyrtec 10 mg tablet 01-21 00:00: 00 No 1mg Zyrtec 10 mg tablet 01-21 00:00: 00 No 1mg Xulane 150 mcg-35 mcg/24 hr transdermal patch 10-10 00:00: 00 No 1mcg/24 hr Xulane 150 mcg-35 mcg/24 hr transdermal patch 10-10 00:00: 00 No 1mcg/24 hr Xulane 150 mcg-35 mcg/24 hr transdermal patch 10-10 00:00: 00 No 1mcg/24 hr Flagyl 500 mg tablet 09-10 00:00: 00 No 1mg Flagyl 500 mg tablet 09-10 00:00: 00 No 1mg Flagyl 500 mg tablet 09-10 00:00: 00 No 1mg Macrobid 100 mg capsule 09-06 00:00: 00 No 1mg Macrobid 100 mg capsule 09-06 00:00: 00 No 1mg Macrobid 100 mg capsule 09-06 00:00: 00 No 1mg ibuprofen 600 mg tablet 2016-08 00:00: 00 10-03 00:00 :00 No 600mg Take 1 tablet by mouth every 6 (six) hours as needed for Pain (scale 4-6). [facility] Immunizations Ordered Immunization Name Filled Immunization Name Date Status Comments Source TDAP 2023-01-19 00:00:00 Completed [facility] TDAP 2023-01-19 00:00:00 Completed [facility] TDAP 2023-01-19 00:00:00 Completed [facility] TDAP 2023-01-19 00:00:00 Completed [facility] TDAP 2023-01-19 00:00:00 Completed [facility] TDAP 2023-01-19 00:00:00 Completed [facility] TDAP 2023-01-19 00:00:00 Completed [facility] TDAP 2023-01-19 00:00:00 Completed [facility] TDAP 2023-01-19 00:00:00 Completed [facility] TDAP 2023-01-19 00:00:00 Completed [facility] TDAP 2023-01-19 00:00:00 Completed [facility] TDAP 2023-01-19 00:00:00 Completed [facility] TDAP 2023-01-19 00:00:00 Completed [facility] TDAP 2023-01-19 00:00:00 Completed [facility] TDAP 2023-01-19 00:00:00 Completed [facility] TDAP 2023-01-19 00:00:00 Completed [facility] TDAP 2023-01-19 00:00:00 Completed [facility] TDAP 2023-01-19 00:00:00 Completed [facility] TDAP 2023-01-19 00:00:00 Completed [facility] TDAP 2023-01-19 00:00:00 Completed [facility] TDAP 2023-01-19 00:00:00 Completed [facility] TDAP 2023-01-19 00:00:00 Completed [facility] TDAP 2023-01-19 00:00:00 Completed [facility] TDAP 2023-01-19 00:00:00 Completed [facility] TDAP 2023-01-19 00:00:00 Completed [facility] TDAP 2023-01-19 00:00:00 Completed [facility] TDAP 2023-01-19 00:00:00 Completed [facility] TDAP 2023-01-19 00:00:00 Completed [facility] TDAP 2023-01-19 00:00:00 Completed [facility] TDAP 2023-01-19 00:00:00 Completed [facility] TDAP 2023-01-19 00:00:00 Completed [facility] TDAP 2023-01-19 00:00:00 Completed [facility] Moderna COVID-19 Vaccine 2021-01-01 00:00:00 Completed Moderna COVID-19 Vaccine 2021-01-01 00:00:00 Completed Moderna COVID-19 Vaccine 2021-01-01 00:00:00 Completed Moderna COVID-19 Vaccine 2020-12-03 00:00:00 Completed Moderna COVID-19 Vaccine 2020-12-03 00:00:00 Completed Moderna COVID-19 Vaccine 2020-12-03 00:00:00 Completed TDAP Unknown Completed [facility] TDAP Unknown Completed [facility] TDAP Unknown Completed [facility] TDAP Unknown Completed [facility] TDAP Unknown Completed [facility] TDAP Unknown Completed [facility] Vital Signs Vital Name Observation Time Observation Value Comments S ource Systolic blood pressure 2023-09-29 17:09:00 133 mm[Hg] [facility] Diastolic blood pressure 2023-09-29 17:09:00 81 mm[Hg] [facility] Heart rate 2023-09-29 17:09:00 97 /min [facility] Body temperature 2023-09-29 17:09:00 36.72 Amairani [facility] Respiratory rate 2023-09-29 17:09:00 16 /min [facility] Body height 2023-09-29 17:09:00 149.9 cm [facility] Body weight 2023-09-29 17:09:00 87.091 kg [facility] BMI 2023-09-29 17:09:00 38.78 kg/m2 [facility] Oxygen saturation in Arterial blood by Pulse oximetry 2023-09-29 17:09:00 99 /min [facility] Systolic blood pressure 2023-09-16 20:47:00 108 mm[Hg] [facility] Diastolic blood pressure 2023-09-16 20:47:00 71 mm[Hg] [facility] Heart rate 2023-09-16 20:47:00 86 /min [facility] Body temperature 2023-09-16 20:47:00 36 Amairani [facility] Respiratory rate 2023-09-16 20:47:00 18 /min [facility] Body height 2023-09-16 20:47:00 149.9 cm [facility] Body weight 2023-09-16 20:47:00 87.907 kg [facility] BMI 2023-09-16 20:47:00 39.14 kg/m2 [facility] Oxygen saturation in Arterial blood by Pulse oximetry 2023-09-16 20:47:00 97 /min [facility] Systolic blood pressure 2023-08-30 19:48:00 126 mm[Hg] [facility] Diastolic blood pressure 2023-08-30 19:48:00 84 mm[Hg] [facility] Heart rate 2023-08-30 19:48:00 97 /min [facility] Body temperature 2023-08-30 19:48:00 36.61 Amairani [facility] Respiratory rate 2023-08-30 19:48:00 17 /min [facility] Body height 2023-08-30 19:48:00 149.9 cm [facility] Body weight 2023-08-30 19:48:00 87.454 kg [facility] BMI 2023-08-30 19:48:00 38.94 kg/m2 [facility] Oxygen saturation in Arterial blood by Pulse oximetry 2023-08-30 19:48:00 99 /min [facility] Systolic blood pressure 2023-05-03 13:54:00 108 mm[Hg] [facility] Diastolic blood pressure 2023-05-03 13:54:00 71 mm[Hg] [facility] Heart rate 2023-05-03 13:53:00 63 /min [facility] Body temperature 2023-05-03 13:53:00 36.61 Amairani [facility] Body height 2023-05-03 13:53:00 149.9 cm [facility] Body weight 2023-05-03 13:53:00 78.654 kg [facility] BMI 2023-05-03 13:53:00 35.02 kg/m2 [facility] Systolic blood pressure 2023-04-26 18:19:00 117 mm[Hg] [facility] Diastolic blood pressure 2023-04-26 18:19:00 77 mm[Hg] [facility] Heart rate 2023-04-26 18:19:00 94 /min [facility] Body temperature 2023-04-26 18:19:00 36.89 Amairani [facility] Body height 2023-04-26 18:19:00 149.9 cm [facility] Body weight 2023-04-26 18:19:00 78.472 kg [facility] BMI 2023-04-26 18:19:00 34.94 kg/m2 [facility] Systolic blood pressure 2023-03-26 00:38:00 120 mm[Hg] [facility] Diastolic blood pressure 2023-03-26 00:38:00 63 mm[Hg] [facility] Heart rate 2023-03-26 00:38:00 88 /min [facility] Body temperature 2023-03-26 00:38:00 36.22 Amairani [facility] Respiratory rate 2023-03-26 00:38:00 16 /min [facility] Oxygen saturation in Arterial blood by Pulse oximetry 2023-03-26 00:38:00 98 /min [facility] Body height 2023-03-24 07:51:00 149.9 cm [facility] Body weight 2023-03-24 07:51:00 82.736 kg [facility] BMI 2023-03-24 07:51:00 36.84 kg/m2 [facility] Systolic blood pressure 2023-03-22 19:11:00 115 mm[Hg] [facility] Diastolic blood pressure 2023-03-22 19:11:00 73 mm[Hg] [facility] Heart rate 2023-03-22 19:11:00 84 /min [facility] Body temperature 2023-03-22 19:11:00 36.5 Amairani [facility] Body height 2023-03-22 19:11:00 149.9 cm [facility] Body weight 2023-03-22 19:11:00 82.736 kg [facility] BMI 2023-03-22 19:11:00 36.84 kg/m2 [facility] Systolic blood pressure 2023-03-15 20:11:00 118 mm[Hg] [facility] Diastolic blood pressure 2023-03-15 20:11:00 72 mm[Hg] [facility] Heart rate 2023-03-15 20:11:00 86 /min [facility] Body temperature 2023-03-15 20:11:00 36.78 Amairani [facility] Respiratory rate 2023-03-15 20:11:00 18 /min [facility] Body height 2023-03-15 20:11:00 149.9 cm [facility] Body weight 2023-03-15 20:11:00 81.285 kg [facility] BMI 2023-03-15 20:11:00 36.19 kg/m2 [facility] Oxygen saturation in Arterial blood by Pulse oximetry 2023-03-15 20:11:00 99 /min [facility] Systolic blood pressure 2023-03-08 19:11:00 107 mm[Hg] [facility] Diastolic blood pressure 2023-03-08 19:11:00 68 mm[Hg] [facility] Heart rate 2023-03-08 19:11:00 91 /min [facility] Body temperature 2023-03-08 19:11:00 36.78 [facility] Respiratory rate 2023-03-08 19:11:00 18 /min [facility] Body height 2023-03-08 19:11:00 149.9 cm [facility] Body weight 2023-03-08 19:11:00 80.65 kg [facility] BMI 2023-03-08 19:11:00 35.91 kg/m2 [facility] Oxygen saturation in Arterial blood by Pulse oximetry 2023-03-08 19:11:00 99 /min [facility] Systolic blood pressure 2023-03-01 19:38:00 109 mm[Hg] [facility] Diastolic blood pressure 2023-03-01 19:38:00 68 mm[Hg] [facility] Heart rate 2023-03-01 19:37:00 91 /min [facility] Body temperature 2023-03-01 19:37:00 36.61 [facility] Respiratory rate 2023-03-01 19:37:00 20 /min [facility] Body height 2023-03-01 19:37:00 149.9 cm [facility] Body weight 2023-03-01 19:37:00 79.198 kg [facility] BMI 2023-03-01 19:37:00 35.26 kg/m2 [facility] Oxygen saturation in Arterial blood by Pulse oximetry 2023-03-01 19:37:00 97 /min [facility] Systolic blood pressure 2023-02-14 19:30:00 115 mm[Hg] [facility] Diastolic blood pressure 2023-02-14 19:30:00 70 mm[Hg] [facility] Heart rate 2023-02-14 19:30:00 91 /min [facility] Body temperature 2023-02-14 19:30:00 36.72 [facility] Respiratory rate 2023-02-14 19:30:00 18 /min [facility] Body height 2023-02-14 19:30:00 149.9 cm [facility] Body weight 2023-02-14 19:30:00 79.379 kg [facility] BMI 2023-02-14 19:30:00 35.35 kg/m2 [facility] Systolic blood pressure 2023-02-02 18:52:00 101 mm[Hg] [facility] Diastolic blood pressure 2023-02-02 18:52:00 65 mm[Hg] [facility] Heart rate 2023-02-02 18:52:00 102 /min [facility] Body temperature 2023-02-02 18:52:00 36.72 [facility] Respiratory rate 2023-02-02 18:52:00 16 /min [facility] Body height 2023-02-02 18:52:00 149.9 cm [facility] Body weight 2023-02-02 18:52:00 79.198 kg [facility] BMI 2023-02-02 18:52:00 35.26 kg/m2 [facility] Oxygen saturation in Arterial blood by Pulse oximetry 2023-02-02 18:52:00 97 /min [facility] Heart rate 2023-02-02 03:49:00 78 /min [facility] in Arterial blood by Pulse oximetry 2023-02-02 03:49:00 100 /min [facility] Systolic blood pressure 2023-02-02 00:26:00 113 mm[Hg] [facility] Diastolic blood pressure 2023-02-02 00:26:00 59 mm[Hg] [facility] Body temperature 2023-02-02 00:26:00 36.78 Amair[facility] Respiratory rate 2023-02-02 00:26:00 16 /min [facility] Body height 2023-02-02 00:26:00 149.9 cm [facility] Body weight 2023-02-02 00:26:00 77.928 kg [facility] BMI 2023-02-02 00:26:00 34.70 kg/m2 [facility] Systolic blood pressure 2023-01-19 20:35:00 118 mm[Hg] [facility] Diastolic blood pressure 2023-01-19 20:35:00 74 mm[Hg] [facility] Heart rate 2023-01-19 20:35:00 86 /min [facility] Respiratory rate 2023-01-19 20:35:00 18 /min [facility] Body height 2023-01-19 20:35:00 149.9 cm [facility] Body weight 2023-01-19 20:35:00 77.111 kg [facility] BMI 2023-01-19 20:35:00 34.34 kg/m2 [facility] Heart rate 2023-01-16 22:45:00 92 /min [facility] Oxygen saturation in Arterial blood by Pulse oximetry 2023-01-16 22:45:00 96 /min [facility] Systolic blood pressure 2023-01-16 22:00:00 105 mm[Hg] [facility] Diastolic blood pressure 2023-01-16 22:00:00 56 mm[Hg] [facility] Respiratory rate 2023-01-16 22:00:00 18 /min [facility] Body temperature 2023-01-16 21:15:00 37.56 Amair[facility] Body height 2023-01-16 21:15:00 149.9 cm [facility] Body weight 2023-01-16 20:13:00 78.019 kg [facility] BMI 2023-01-16 20:13:00 34.74 kg/m2 [facility] Systolic blood pressure 2022-09-27 20:07:00 96 mm[Hg] [facility] Diastolic blood pressure 2022-09-27 20:07:00 55 mm[Hg] [facility] Heart rate 2022-09-27 20:07:00 85 /min [facility] Body temperature 2022-09-27 20:07:00 36.89 [facility]ir[facility] Respiratory rate 2022-09-27 20:07:00 18 /min [facility] Body height 2022-09-27 20:07:00 149.9 cm [facility] Body weight 2022-09-27 20:07:00 78.926 kg [facility] BMI 2022-09-27 20:07:00 35.14 kg/m2 [facility] BP Systolic 2022-09-07 17:31:00 96 mm[Hg] BP [...] 17.00 /min Procedures Procedure Date / Time Performed Performing Clinician Source ASSIGNMENT OF BENEFITS 2023-09-29 17:42:04 Duane r Unassigned, Radom [facility] POCT TEST 2023-09-29 17:32:00 Hossein Garcia [facility] CONSENT/REFUSAL FOR DIAGNOSIS AND TREATMENT 2023-09-29 16:48:59 Doctor Unassigned, Radom [facility] POCT MOLECULAR FLU 2023-08-30 19:57:00 Giulia Quintero [facility] POCT SARS-COV-2 ANTIGEN (BINAX NOW) 2023-08-30 00:00:00 Giulia Quintero [facility] CONSENT FOR CONTRACEPTION 2023-05-03 05:01:00 Doctor Unassigned, Radom [facility] POCT TEST 2023-05-03 00:00:00 Mendoza Washburn [facility] CBC WITH DIFF 2023-03-25 09:22:00 Mendoza [facility] CENTRAL NEURAXIAL BLOCK 2023-03-24 13:45:00 Gloria Irwin [facility] HB ABO GROUPING 2023-03-24 07:29:00 Mendoza Washburn [facility] RHO (D) IMMUNE GLOBULIN 2023-03-24 07:29:00 Mendoza Washburn [facility] HOSPITAL ADMISSION 2023-03-24 05:01:00 Doctor Un assigned, Rad[facility] PHYSICIAN ORDERS 2023-03-23 05:01:00 Doctor Unas signed, Radom [facility] ASSIGNMENT OF BENEFITS 2023-03-22 20:08:09 Docto r Unassigned, Radom [facility] POCT URINALYSIS W/O SPECIFIC GRAVITY 2023-03-22 00:00:00 Mendoza Washburn [facility] POCT URINALYSIS W/O SPECIFIC GRAVITY 2023-03-15 00:00:00 [facility] POCT URINALYSIS W/O SPECIFIC GRAVITY 2023-03-08 00:00:00 Mendoza Washburn [facility] >14 WEEKS US LIMITED 2023-03-01 20:38:15 Mendoza Washburn [facility] POCT URINALYSIS W/O SPECIFIC GRAVITY 2023-03-01 00:00:00 Mendoza Washburn [facility] EXTERNAL PROVIDER RECORDS 2023-02-24 05:01:00 Doctor Unassigned, Radom [facility] AUTHORIZATION TO RELEASE PHI TO [facility] 2023-02-14 05:01:00 Doctor Unassigned, Radom [facility] POCT URINALYSIS W/O SPECIFIC GRAVITY 2023-02-14 00:00:00 Mendoza Washburn [facility] US PELVIS > 14 WEEKS 2023-02-02 03:42:09 AdumViviane [facility] CONSENT/REFUSAL FOR DIAGNOSIS AND TREATMENT 2023-02-01 23:58:19 Doctor Unassigned, [facility] EXTERNAL PROVIDER RECORDS 2023-01-20 05:01:00 Doctor Unassigned, [facility] TDAP VACCINE, >11 YRS, IM 2023-01-19 20:37:39 Indira Kelly [facility] POCT URINALYSIS W/O SPECIFIC GRAVITY 2023-01-19 00:00:00 Indira Kelly [facility] RAPID STREP SCREEN FOR GROUP A 2023-01-16 20:18:00 Kassidy Fowler [facility] RAPID INFLUENZA A/B 2023-01-16 20:18:00 Kassidy Fowler [facility] COVID-19 (ID NOW RAPID TESTING) 2023-01-16 20:18:00 Kassidy Fowler [facility] CONSENT/REFUSAL FOR DIAGNOSIS AND TREATMENT 2023-01-16 20:07:04 Doctor Unassigned, Rad[facility] AUTHORIZATION TO RELEASE PHI TO [facility] 2023-01-05 05:01:00 Doctor Unassigned, [facility] FALL RISK ASSESSMENT 2022-10-20 06:01:00 Doctor Unassigned, [facility] GC & CHLAMYDIA AMPLIFIED ASSAY 2022-09-27 23:00:00 Indira Kelly [facility] TRICHOMONAS AMPLIFIED ASSAY 2022-09-27 23:00:00 Indira Kelly [facility] ASSIGNMENT OF BENEFITS 2022-09-27 19:38:59 Docto r Unassigned, Radom [facility] POCT URINALYSIS W/O SPECIFIC GRAVITY 2022-09-27 00:00:00 Indira Kelly [facility] Plan of Care Planned Activity Planned Date Details Comments Source Goal Plan of Care Note [code = 29074-4] Goal Plan of Care Note [code = 37047-6] Goal Plan of Care Note [code = 16517-8] Goal Plan of Care Note [code = 89104-4] Goal Plan of Care Note [code = 93913-8] Goal Plan of Care Note [code = 52286-1] Goal Plan of Care Note [code = 29766-8] Goal Plan of Care Note [code = 79939-3] Goal Plan of Care Note [code = 33665-4] Goal Plan of Care Note [code = 57295-3] Goal Plan of Care Note [code = 65224-2] Goal Plan of Care Note [code = 30992-9] Goal Plan of Care Note [code = 93331-3] Goal Plan of Care Note [code = 46907-3] Goal Plan of Care Note [code = 09328-6] Goal Plan of Care Note [code = 37849-3] Goal Plan of Care Note [code = 94953-1] Goal Plan of Care Note [code = 29042-9] Goal Plan of Care Note [code = 05514-1] Goal Plan of Care Note [code = 06362-6] Goal Plan of Care Note [code = 04189-2] Goal Plan of Care Note [code = 52631-7] Goal Plan of Care Note [code = 98011-2] Goal Plan of Care Note [code = 85405-1] Goal Plan of Care Note [code = 18413-9] Goal Plan of Care Note [code = 99574-5] Goal Plan of Care Note [code = 09890-2] Goal Plan of Care Note [code = 18428-1] Goal Plan of Care Note [code = 59223-7] Goal Plan of Care Note [code = 42826-7] Goal Plan of Care Note [code = 54485-4] Goal Plan of Care Note [code = 66103-0] Goal Plan of Care Note [code = 15412-5] Goal Plan of Care Note [code = 12031-1] Goal Plan of Care Note [code = 84627-2] Goal Plan of Care Note [code = 24482-7] Goal Plan of Care Note [code = 42357-2] Goal Plan of Care Note [code = 01514-6] Goal Plan of Care Note [code = 10720-4] Goal Plan of Care Note [code = 13397-4] Goal Plan of Care Note [code = 47521-7] Goal Plan of Care Note [code = 07082-6] Goal Plan of Care Note [code = 08149-7] Goal Plan of Care Note [code = 83961-7] Goal Plan of Care Note [code = 98826-5] Goal Plan of Care Note [code = 87169-0] Goal Plan of Care Note [code = 49998-6] Goal Plan of Care Note [code = 82979-7] Goal Plan of Care Note [code = 04049-3] Goal Plan of Care Note [code = 97205-2] Goal Plan of Care Note [code = 17944-7] Goal Plan of Care Note [code = 70527-9] Goal Plan of Care Note [code = 33350-7] Goal Plan of Care Note [code = 84186-2] Goal Plan of Care Note [code = 38973-0] Goal Plan of Care Note [code = 46955-7] Goal Plan of Care Note [code = 43593-9] Goal Plan of Care Note [code = 50084-7] Goal Plan of Care Note [code = 49215-3] Goal Plan of Care Note [code = 15849-7] Goal Plan of Care Note [code = 46323-1] Goal Plan of Care Note [code = 01560-4] Goal Plan of Care Note [code = 74552-4] Goal Plan of Care Note [code = 74610-0] Goal Plan of Care Note [code = 30179-5] Goal Plan of Care Note [code = 77317-5] Goal Plan of Care Note [code = 92134-4] Goal Plan of Care Note [code = 71774-9] Goal Plan of Care Note [code = 84092-6] Goal Plan of Care Note [code = 95749-0] Goal Plan of Care Note [code = 22536-9] Goal Plan of Care Note [code = 49715-1] Goal Plan of Care Note [code = 66770-4] Goal Plan of Care Note [code = 06738-0] Goal Plan of Care Note [code = 45435-9] Goal Plan of Care Note [code = 31164-8] Goal Plan of Care Note [code = 24592-2] Goal Plan of Care Note [code = 17963-8] Goal Plan of Care Note [code = 66529-4] Goal Plan of Care Note [code = 77566-7] Goal Plan of Care Note [code = 08122-0] Goal Plan of Care Note [code = 00062-8] Goal Plan of Care Note [code = 60872-1] Goal Plan of Care Note [code = 93240-0] Goal Plan of Care Note [code = 64235-1] Goal Plan of Care Note [code = 61448-0] Goal Plan of Care Note [code = 74706-0] Goal Plan of Care Note [code = 69330-8] Goal Plan of Care Note [code = 50373-1] Goal Plan of Care Note [code = 12574-6] Goal Plan of Care Note [code = 79544-1] Goal Plan of Care Note [code = 47364-0] Goal Plan of Care Note [code = 00254-7] Goal Plan of Care Note [code = 01329-9] Goal Plan of Care Note [code = 66926-3] Encounters Start Date/Time End Date/Time Encounter Type Admission Type Attending Clinicians Care Facility Care Department Encounter ID Source 2023-01-16 18:33:41 Outpatient X [facility] [id number] [facility] 2023-09-29 12:30:00 2023-09-29 12:30:00 Outpatient R GIULIA QUINTERO [facility] [id number] [facility] 2023-09-29 11:12:00 2023-09-29 12:19:00 Emergency X DOUGBENITO JOYNERIO [facility] ERT [id number] [facility] 2023-09-29 11:12:00 2023-09-29 12:19:00 Emergency Hossein Garcia [place] 1.2.840.114 350.1.13.10 4.2.7.2.686 [id number] [facility] 2023-09-16 15:00:00 2023-09-16 15:12:22 Outpatient R GIULIA QUINTERO [facility] [id number] [facility] 2023-09-16 15:00:00 2023-09-16 15:12:22 Office Visit Giulia Quintero [facility] 1.2.840.114 350.1.13.10 4.2.7.2.686 [id number] [facility] 2023 14:00:00 2023 14:00:00 Outpatient R [facility] [id number] [facility] 2023-08-30 13:30:00 2023-08-30 14:13:23 Outpatient R GIULIA QUINTERO [facility] [id number] [facility] 2023-08-30 13:30:00 2023-08-30 14:13:23 [facility] 1.2.840.114 350.1.13.10 4.2.7.2.686 [id number] [facility] 2023-05-04 13:45:00 2023-05-04 13:45:00 Outpatient R MENDOZA WASHBURN [facility] [id number] [facility] 2023-05-03 08:30:00 2023-05-03 08:54:06 Outpatient R MENDOZA WASHBURN [facility] [id number] [facility] 2023-05-03 08:30:00 2023-05-03 08:54:06 Office Visit Mendoza Wash[place] [facility] 1.2.840.114 350.1.13.10 4.2.7.2.686 [id number] [facility] 2023-05-03 00:00:00 2023-05-03 00:00:00 Orders Only Doctor Unassigned, Radom [facility] 1.2840.114 350.1.13.10 4.2.7.2.686 [id number] [facility] 2023-04-27 00:00:00 2023-04-27 00:00:00 Telephone Mendoza Washburn [facility] 1.2840.114 350.1.13.10 4.2.7.2.686 [id number] [facility] 2023-04-26 13:00:00 2023-04-26 13:33:14 Outpatient R MENDOZA WASHBURN [facility] [id number] [facility] 2023-04-26 13:00:00 2023-04-26 13:33:14 Routine Visit Mendoza Washburn [facility] 1.2840.114 350.1.13.10 4.2.7.2.686 [id number] [facility] 2023-03-30 00:00:00 2023-03-30 00:00:00 Telephone Mendoza [place] [facility] 1.2840.114 350.1.13.10 4.2.7.2.686 [id number] [facility] 2023-03-24 01:37:00 2023-03-25 22:10:00 Inpatient P MENDOZA WASHBURN [facility] ADAMARIS [id number] [facility] 2023-03-24 01:37:00 2023-03-25 22:10:00 Hospital Encounter Mendoza Washburn [facility] 1.2.840.114 350.1.13.10 4.2.7.2.686 [id number] [facility] 2023-03-24 08:45:00 2023-03-24 21:36:00 Anesthesia Event Stalin Benito Stacey [place] 1.2.840.114 350.1.13.10 4.2.7.2.686 [id number] [facility] 2023-03-24 07:00:58 2023-03-24 07:00:58 Anesthesia Event Dc Marivelvick Pittman [place] 1.2.840.114 350.1.13.10 4.2.7.2.686 [id number] [facility] 2023-03-24 00:00:00 2023-03-24 00:00:00 Orders Only Doctor Unassigned, Radom [facility] 1.2.840.114 350.1.13.10 4.2.7.2.686 [id number] [facility] 2023-03-23 00:00:00 2023-03-23 00:00:00 Orders Only Doctor Unassigned, Radom [facility] 1.2.840.114 350.1.13.10 4.2.7.2.686 [id number] [facility] 2023-03-22 15:00:00 2023-03-22 15:15:00 Assisted Living Director Visit Pob, Adc Lab Main [place], Mendoza Cam [facility] 1.2.840.114 350.1.13.10 4.2.7.2.686 [id number] [facility] 2023-03-22 15:00:00 2023-03-22 15:00:00 Outpatient R MENDOZA WASHBURN [facility] [id number] [facility] 2023-03-22 14:15:00 2023-03-22 14:47:16 Routine Visit Mendoza Washburn [facility] 1.2840.114 350.1.13.10 4.2.7.2.686 [id number] [facility] 2023-03-22 00:00:00 2023-03-22 00:00:00 Orders Only Doctor Unassigned, Radom [facility] 1.284.114 350.1.13.10 4.2.7.2.686 [id number] [facility] 2023-03-15 15:00:00 2023-03-15 15:23:44 Outpatient R RACHANA S, SADIA OBINNA-LUCIUS STANNERSADIA [facility] [id number] [facility] 2023-03-15 15:00:00 2023-03-15 15:23:44 Routine Visit Sadia Rene [facility] 1.2.840.114 350.1.13.10 4.2.7.2.686 [id number] [facility] 2023-03-08 14:15:00 2023-03-08 14:29:55 Outpatient R MENDOZA WASHBURN [facility] [id number] [facility] 2023-03-08 14:15:00 2023-03-08 14:29:55 Routine Visit Mendoza Washburn [facility] 1.2840.114 350.1.13.10 4.2.7.2.686 [id number] [facility] 2023-03-03 00:00:00 2023-03-03 00:00:00 Case Management Mendoza Washburn [facility] 1.2.840.114 350.1.13.10 4.2.7.2.686 [id number] [facility] 2023-03-01 15:30:00 2023-03-01 15:35:40 Assisted Living Director Visit 2, Adc Lab Mendoza Washburn [facility] BUILDING 1.2.840.114 350.1.13.10 4.2.7.2.686 [id number] [facility] 2023-03-01 14:00:00 2023-03-01 15:17:01 Outpatient R MENDOZA WASHBURN [facility] [id number] [facility] 2023-03-01 14:00:00 2023-03-01 15:17:01 Routine Visit Mendoza Washburn [facility] 1.2840.114 350.1.13.10 4.2.7.2.686 [id number] [facility] 2023-02-25 00:00:00 2023-02-25 00:00:00 Telephone Mendoza Washburn [facility] 1.2.840.114 350.1.13.10 4.2.7.2.686 [id number] [facility] 2023-02-24 00:00:00 2023-02-24 00:00:00 Orders Only Doctor Unassigned, Radom [facility] 1.2.840.114 350.1.13.10 4.2.7.2.686 [id number] [facility] 2023-02-16 00:00:00 2023-02-16 00:00:00 Telephone Mendoza Washburn [facility] 1.2840.114 350.1.13.10 4.2.7.2.686 [id number] [facility] 2023-02-16 00:00:00 2023-02-16 00:00:00 Case Management [address]joseIndira [facility] 1.840.114 350.1.13.10 4.2.7.2.686 [id number] [facility] 2023-02-15 15:00:00 2023-02-15 16:00:00 Assisted Living Director Visit Ultrasound, Rhys Reid [facility] 1.840.114 350.1.13.10 4.2.7.2.686 [id number] [facility] 2023-02-15 15:00:00 2023-02-15 15:00:00 Outpatient P RHYS WELLS [facility] [id number] [facility] 2023-02-14 14:15:00 2023-02-14 15:13:56 Outpatient R MENDOZA WASHBURN [facility] [id number] [facility] 2023-02-14 14:15:00 2023-02-14 15:13:56 Routine Visit Mendoza Washburn [facility] 1.2840.114 350.1.13.10 4.2.7.2.686 [id number] [facility] 2023-02-14 00:00:00 2023-02-14 00:00:00 Orders Only Doctor Unassigned, Radom [facility] 1.2840.114 350.1.13.10 4.2.7.2.686 [id number] [facility] 2023-02-02 13:45:00 2023-02-02 14:22:21 Outpatient R KELININDIRA ALMARAZ INCOLEINDIRA ARCOS [facility] [id number] [facility] 2023-02-02 13:45:00 2023-02-02 14:22:21 Routine Visit CarringtonIndira villarreal [facility] 1.2.840.114 350.1.13.10 4.2.7.2.686 [id number] [facility] 2023-02-01 19:10:00 2023-02-02 00:20:00 Outpatient X VIVIANE URIARTE [facility] [id number] [facility] 2023-02-01 19:10:00 2023-02-02 00:20:00 Emergency Adcolin Viviane L [place] 1.2.840.114 350.1.13.10 4.2.7.2.686 [id number] [facility] 2023-01-20 00:00:00 2023-01-20 00:00:00 Orders Only Doctor Unassigned, Radom [facility] 1.2.840.114 350.1.13.10 4.2.7.2.686 [id number] [facility] 2023-01-19 16:15:00 2023-01-19 16:15:00 Routine Visit NicoleIndira arcos [facility] 1.2.840.114 350.1.13.10 4.2.7.2.686 [id number] [facility] 2023-01-19 16:15:00 2023-01-19 16:01:14 Outpatient R NICOLEINDIRA ARCOS NICOLEROCÍO ARCOSTONEY [facility] [id number] [facility] 2023-01-19 00:00:00 2023-01-19 00:00:00 Case Management Indira Kelly [facility] 1.2840.114 350.1.13.10 4.2.7.2.686 [id number] [facility] 2023-01-16 15:15:00 2023-01-16 18:15:00 Outpatient X YOON-LUCIUS S, SADIA YOON-LUCIUS S, SADIA [facility] [id number] [facility] 2023-01-16 15:15:00 2023-01-16 18:15:00 Emergency Kassidy Fowlerio-Lucius s, Sadia [place] 1.2.840.114 350.1.13.10 4.2.7.2.686 [id number] [facility] 2023-01-14 14:53:49 2023-01-14 14:53:49 Outpatient [facility] [id number] Serafin Girard Flako 2023-01-13 00:00:00 2023-01-13 00:00:00 Telephone Indira Kelly [facility] [id number] 350.1.13.10 [id number] [id number] [facility] 2023-01-05 00:00:00 2023-01-05 00:00:00 Orders Only Doctor Unassigned, Radom [facility] [id number] [id number] [id number] [id number] [facility] 2022-11-08 10:00:00 2022-11-08 10:00:00 Outpatient P [facility] [id number] [facility] 2022-11-05 08:30:00 2022-11-05 08:30:00 Outpatient P [facility] [id number] [facility] 2022-10-25 09:15:00 2022-10-25 09:15:00 Outpatient R INDIRA KELLYKIRAINDIRA ARCOS [facility] [id number] [facility] 2022-10-20 00:00:00 2022-10-20 00:00:00 Orders Only Doctor Unassigned, Radom [facility] 1.2.840.114 350.1.13.10 4.2.7.2.686 [id number] [facility] 2022-10-17 00:00:00 2022-10-17 00:00:00 Telephone Indira Kelly [facility] 1.2.840.114 350.1.13.10 4.2.7.2.686 [id number] [facility] 2022-10-11 00:00:00 2022-10-11 00:00:00 Telephone KelinIndira almaraz [facility] 1.2.840.114 350.1.13.10 4.2.7.2.686 [id number] [facility] 2022-10-01 00:00:00 2022-10-01 00:00:00 Letter (Out) KelinIndira almaraz [facility] 1.2.840.114 350.1.13.10 4.2.7.2.686 [id number] [facility] 2022-09-30 10:15:05 2022-09-30 10:15:[address] [facility] [id number] Serafin Arriola 2022-09-27 16:36:06 2022-09-27 16:36:[address] [facility] [id number] Serafin Arriola 2022-09-27 13:30:00 2022-09-27 14:33:13 Outpatient R NICOLEROCÍO ARCOSTONEY BOSCHCHRISTOPHEKIRAINDIRA ARCOS [facility] [id number] [facility] 2022-09-27 13:30:00 2022-09-27 14:33:13 Initial Visit Indira Kelly [facility] 1.2.840.114 350.1.13.10 4.2.7.2.686 [id number] [facility] 2022-09-27 00:00:00 2022-09-27 00:00:00 Orders Only Doctor Unassigned, Radom [facility] 1.2.840.114 350.1.13.10 4.2.7.2.686 [id number] [facility] 2022-09-08 13:23:15 2022-09-08 13:23:15 Outpatient SFA [facility] [id number] Serafin Arriola 2022-09-07 17:08:57 2022-09-07 17:08:57 Outpatient SFA [facility] [id number] Serafin Arriola 2022-09-07 00:00:00 2022-09-07 00:00:00 Outpatient Visit [id number] 2022-07-27 13:04:42 2022-07-27 13:04:42 Outpatient SFA SFA [id number] Serafin Arriola 2022-03-31 00:00:00 2022-03-31 00:00:00 Outpatient Visit [id number] 2022-02-25 00:00:00 2022-02-25 00:00:00 Outpatient Visit [id number] Results Test Description Test Time Test Comments Results Result Co mments [facility] (BINAX NOW)2023-08-30 20:11:00* Test Item Value Reference Range Interpretation Comme nts POCT SARS-COV-2 ANTIGEN (jaylen t code = 61310-4) Not Detected Not Detected On board controls acceptable with C Line (test code = 3574) Yes [facility] SARS-COV-2 ANTIGEN (BINAX NOW)2023-08-30 20:11:00* Test Item Value Reference Range Interpretation Comme nts POCT SARS-COV-2 ANTIGEN (jaylen t code = 40891-6) Not Detected Not Detected On board controls acceptable with C Line (test code = 3574) Yes [facility] Molecular [id number] 20:08:24* Test Item Value Reference Range Interpretation Comme nts POCT Molecular FluA (test co de = 60356-9) Negative Negative POCT Molecular FluB (test co de = 96480-5) Negative Negative Lab Interpretation (test cod e = 55960-5) Normal [facility] Molecular [id number] 20:08:24* Test Item Value Reference Range Interpretation Comme nts POCT Molecular FluA (test co de = 93978-1) Negative Negative POCT Molecular FluB (test co de = 43732-3) Negative Negative Lab Interpretation (test cod e = 11063-1) Normal [facility] [id number] 13:52:00* Test Item Value Reference Range Interpretation Comme nts POCT PREG (test code = 1605) Negative On board controls acceptable with C Line (test code = 3574) Yes POCT PREG LOT # (test code = 3575) POCT PREG TEST DATE ( test code = 3576) [facility] [id number] 13:52:00* Test Item Value Reference Range Interpretation Comme nts POCT PREG (test code = 1605) Negative On board controls acceptable with C Line (test code = 3574) Yes POCT PREG LOT # (test code = 3575) POCT PREG TEST DATE ( test code = 3576) [facility] with [id number] 11:42:28* Test Item Value Reference Range Interpretation Comme nts WBC (test code = 6690-2) 19.84 See_Comment H [Automated message] The system which generated this result transmitted reference range: 4.30 - 11.10 10*3/?L. The reference range was not used to interpret this result as normal/abnormal. RBC (test code = 789-8) 3.63 See_Comment L [Automated message] The system which generated this result transmitted reference range: 3.93 - 5.25 10*6/?L. The reference range was not used to interpret this result as normal/abnormal. HGB (test code = 718-7) 9.6 g/dL 11.6-15.0 L HCT (test code = 4544-3) 28.9 % 35.7-45.2 L MCV (test code = 787-2) 79.6 fL 80.6-95.5 L MCH (test code = 785-6) 26.4 pg 25.9-32.8 MCHC (test code = 786-4) 33.2 g/dL 31.6-35.1 RDW-SD (test code = 29130-9) 41.7 fL 39.0-49.9 RDW-CV (test code = 788-0) 14.4 % 12.0-15.5 PLT (test code = 777-3) 287 See_Comment [Automated message] The system which generated this result transmitted reference range: 166 - 358 10*3/?L. The reference range was not used to interpret this result as normal/abnormal. MPV (test code = 27772-2) 10.2 fL 9.5-12.9 NRBC/100 WBC (test code = 1635500220) 0.0 See_Comment [Automated message] The system which generated this result transmitted reference range: 0.0 - 10.0 /100 WBCs. The reference range was not used to interpret this result as normal/abnormal. NRBC x10^3 (test code = 3244056727) See_Comment [Automated message] The system which generated this result transmitted reference range: 10*3/?L. The reference range was not used to interpret this result as normal/abnormal. GRAN MAT (NEUT) % (test code = 770-8) 85.9 % IMM GRAN % (test code = 9437854258) 0.70 % LYMPH % (test code = 736-9) 9.3 % MONO % (test code = 5905-5) 3.8 % EOS % (test code = 713-8) 0.1 % BASO % (test code = 706-2) 0.2 % GRAN MAT x10^3(ANC) (test code = 6307909615) 17.05 10*3/uL 1.88-7.09 H IMM GRAN x10^3 (test code = 3441386272) 0.13 10*3/uL 0.00-0.06 H LYMPH x10^3 (test code = 731-0) 1.84 10*3/uL 1.32-3.29 MONO x10^3 (test code = 742-7) 0.76 10*3/uL 0.33-0.92 EOS x10^3 (test code = 711-2) 0.03-0.39 L BASO x10^3 (test code = 704-7) 0.04 10*3/uL 0.01-0.07 BANDS (test code = 9836188745) Increased A Lab Interpretation (test code = 44427-0) Abnormal [facility]D) IMMUNE [id number] 09:52:15* Test Item Value Reference Range Interpretation Comme nts RHIG CANDIDATE? (test code = 5188) No- see comment Patient is not a candidate for RhIg- Patient is Rh Positive.Performed at [facility] Laboratory Services - [facility] Blood [address] [place] [id number] Free: [phone] No. [id number] [facility] CenterType and Screen - ONCE [id number] 08:10:00* Test Item Value Reference Range Interpretation Comme nts ABO & RH (test code = 20) A Positive IAT (test code = 1185) Negative [facility] W/O SPECIFIC [id number] 19:12:00* Test Item Value Reference Range Interpretation Comme nts POCT PH U (test code = 3254) 7 mg/dl 5-8 POCT U LEUK EST (test code = 3263) Negative Negative - Negative POCT U NIT (test code = 3262) Negative Negative - Negati ve POCT U PROT (test code = 3259) Negative Negative - Negat elle POCT U GLU (test code = 3256) Normal Negative - Negati ve POCT U KETONE (test code = 3258) Negative Negative - Neg ative POCT U BLD (test code = 3257) 250 Negative - Negati ve [facility] URINALYSIS W/O SPECIFIC [id number] 20:12:00* Test Item Value Reference Range Interpretation Comme nts POCT PH U (test code = 3254) n/a 5-8 POCT U LEUK EST (test code = 3263) n/a Negative - Negative POCT U NIT (test code = 3262) n/a Negative - Negati ve POCT U PROT (test code = 3259) Trace Negative - Negat elle POCT U GLU (test code = 3256) negative Negative - Negati ve POCT U KETONE (test code = 3258) n/a Negative - Neg ative POCT U BLD (test code = 3257) n/a Negative - Negati ve [facility] URINALYSIS W/O SPECIFIC [id number] 19:09:00* Test Item Value Reference Range Interpretation Comme nts POCT PH U (test code = 3254) n/a 5-8 POCT U LEUK EST (test code = 3263) n/a Negative - Negative POCT U NIT (test code = 3262) n/a Negative - Negati ve POCT U PROT (test code = 3259) negative Negative - Negat elle POCT U GLU (test code = 3256) negative Negative - Negati ve POCT U KETONE (test code = 3258) n/a Negative - Neg ative POCT U BLD (test code = 3257) n/a Negative - Negati ve [facility] URINALYSIS W/O SPECIFIC [id number] 19:35:00* Test Item Value Reference Range Interpretation Comme nts POCT PH U (test code = 3254) n/a 5-8 POCT U LEUK EST (test code = 3263) n/a Negative - Negative POCT U NIT (test code = 3262) n/a Negative - Negati ve POCT U PROT (test code = 3259) negative Negative - Negat elle POCT U GLU (test code = 3256) negative Negative - Negati ve POCT U KETONE (test code = 3258) n/a Negative - Neg ative POCT U BLD (test code = 3257) n/a Negative - Negati ve [facility] URINALYSIS W/O SPECIFIC [id number] 19:36:00* Test Item Value Reference Range Interpretation Comme nts POCT PH U (test code = 3254) n/a 5-8 POCT U LEUK EST (test code = 3263) n/a Negative - Negative POCT U NIT (test code = 3262) n/a Negative - Negati ve POCT U PROT (test code = 3259) Negative Negative - Negat elle POCT U GLU (test code = 3256) Negative Negative - Negati ve POCT U KETONE (test code = 3258) n/a Negative - Neg ative POCT U BLD (test code = 3257) n/a Negative - Negati ve [facility] URINALYSIS W/O SPECIFIC [id number] 19:36:00* Test Item Value Reference Range Interpretation Comme nts POCT PH U (test code = 3254) n/a 5-8 POCT U LEUK EST (test code = 3263) n/a Negative - Negative POCT U NIT (test code = 3262) n/a Negative - Negati ve POCT U PROT (test code = 3259) Negative Negative - Negat elle POCT U GLU (test code = 3256) Negative Negative - Negati ve POCT U KETONE (test code = 3258) n/a Negative - Neg ative POCT U BLD (test code = 3257) n/a Negative - Negati ve [facility] URINALYSIS W/O SPECIFIC [id number] 20:39:00* Test Item Value Reference Range Interpretation Comme nts POCT PH U (test code = 3254) N/A 5-8 POCT U LEUK EST (test code = 3263) N/A Negative - Negative POCT U NIT (test code = 3262) N/A Negative - Negati ve POCT U PROT (test code = 3259) Trace Negative - Negat elle POCT U GLU (test code = 3256) Negative Negative - Negati ve POCT U KETONE (test code = 3258) N/A Negative - Neg ative POCT U BLD (test code = 3257) N/A Negative - Negati ve [facility] CenterPAP TEST, THINPREP, [id number] 14:51:31 * Test Item Value Reference Range Interpretation Comme nts SOURCE: (test code = 8001) Cervical SLIDES: (test code = 8011) 1 LMP: (test code = 8021) 06/20/2022 SPECIMEN ADEQUACY: (test code = 55680) (NOTE) Satisfactory for evaluation. Endocervical cells/transformation zone component present. INTERPRETATION: (test code = 90054) NILM/NO EPITH. ABNORMALITY;SEE BELOW --- - NEGATIVE FOR INTRAEPITHELIAL LESION OR MALIGNANCY (NILM) ---- OTHER COMMENTS: (test code = 8081) (NOTE) Shift in trent suggestive of bacterial vaginosis. LEAD QUALITY TECHNICIAN : (test code = 8101) OLIVER Martinez(ASCP) LOCATION: (test code = 04218) (NOTE) Specimens proces sed and interpreted at [facility], [address] [place] [address], , CLIA: [id number] CPT: (test code = 8140) (NOTE) 56772 UNLESS OTH ERWISE INDICATED, COMPUTER AIDED AND LEAD QUALITY TECHNICIAN SCREENING PERFORMED. The Pap test is a screening test with an inherent, but low probability of error. Your patient should be reminded to consult you immediately if she experiences any suspicious signs or symptoms, regardless of her Pap test result. An alternate report format containing images or consolidated prior Pap history is available as applicable. HPV HIGH RISK WITH GENOTYPE, [id number] 13:47:49* Test Item Value Reference Range Interpretation Comme nts HPV HIGH RISK INTERP (test code = 68787) NEGATIVE NEGATIVE HPV 16 (test code = 03536) NEGATIVE HPV 18 (test code = 38005) NEGATIVE HPV, HR, OTHER GENOTYPES (test code = 97045) NEGATIVE Testing methodol ogy is real-time PCR utilizing hydrolysis probes with the Jesusita González 4800 system. The test individually detects genotypes 16 and 18, as well as the other 12 high risk types (31,33,35,39,45,51,52,56 ,58,59,66,68). The expected result is negative. A negative result does not rule out the presence of HPV not included in the genotype set, a low level of infection or specimen sampling error. [facility] has important pathology staff changes effective 10/20/2022. New pathology staff will provide uninterrupted, excellent patient care and clinical consultation. See URL: [email or web address]. UNLESS OTHERWISE INDICATED, ALL TESTING PERFORMED AT [facility] [address] [place] [address] CLIA: [id number], CAP: [id number] POCT URINALYSIS W/O SPECIFIC [id number] 20:17:00* Test Item Value Reference Range Interpretation Comme nts POCT PH U (test code = 3254) N/A 5-8 POCT U LEUK EST (test code = 3263) N/A Negative - Negative POCT U NIT (test code = 3262) N/A Negative - Negati ve POCT U PROT (test code = 3259) Negative Negative - Negat elle POCT U GLU (test code = 3256) Negative Negative - Negati ve POCT U KETONE (test code = 3258) N/A Negative - Neg ative POCT U BLD (test code = 3257) N/A Negative - Negati ve [facility] CenterHEMOGLOBIN [id number] 14:58:32 * Test Item Value Reference Range Interpretation Comme nts HEMOGLOBIN A1 (test code = 2575) 97.4 % 95.0-98.5 HEMOGLOBIN A2 (test code = 2576) 2.6 % 1.6-3.7 HEMOGLOBIN F () (test code = 2722) 0.0 % 0.0-2.0 HEMOGLOBIN S (test code = 2724) NONE % NONE DETECTED HEMOGLOBIN C (test code = 2726) NONE % NONE DETECTED OTHER HEMOGLOBIN VARIANT (test code = 95545) NONE DETEC % NONE DETECTED PATHOLOGIST'S INTERPRETATION (test code = 2577) (NOTE) NO ABNORMAL HEMOGLOBINS IDENTIFIED. LAITH BALLESTEROS M.D. PAP TEST, THINPREP, [id number] 13:40:58* Test Item Value Reference Range Interpretation Comme nts SOURCE: (test code = 8001) Cervical/Endoce rvical SLIDES: (test code = 8011) 2 LMP: (test code = 8021) 07/20/2022 SPECIMEN ADEQUACY: (test code = 91253) (NOTE) Unsatisfactory ( see Interpretation). INTERPRETATION: (test code = 20383) UNSATISFACTORY; SEE BELOW A --- - UNSATISFACTORY FOR EVALUATION Insufficient cellularity (Charges deleted, please resubmit) OTHER COMMENTS: (test code = 8081) (NOTE) Glacial acetic a bijan added due to blood/mucus in specimen. LEAD QUALITY TECHNICIAN : (test code = 8101) Sara De La Rosa TECHNOLOGIST: (test code = 8111) ANISHA Henry(ASCP) [facility] LOCATION: (test code = 23054) (NOTE) Specimens proces sed and interpreted at [facility], [address] [place] [address], , CLIA: [id number] CPT: (test code = 8140) (NOTE) 60907 UNLESS OTH ERWISE INDICATED, COMPUTER AIDED AND LEAD QUALITY TECHNICIAN SCREENING PERFORMED. The Pap test is a screening test with an inherent, but low probability of error. Your patient should be reminded to consult you immediately if she experiences any suspicious signs or symptoms, regardless of her Pap test result. An alternate report format containing images or consolidated prior Pap history is available as applicable. CULTURE, [id number] 12:16:01SPECIMEN NUMBER: [id number] CULTURE, URINE SPECIMEN NUMBER: [id number] SPECIMEN COMMENT: URINE SOURCE: URINE REPORT STATUS: FINAL ISOLATE NUMBER 1: IDENTIFICATION: 09/10/2022 10-50,000 CFU/ML STREPTOCO CCUS AGALACTIAE (GROUP B) ADDITIONAL OBSERVATIONS: PENICILLIN AND AMPICILLIN ARE DRUGS OF CHOICE FOR TREATMENT OF B-HEMOLYTIC STREPTOCOCCAL INFECTIONS. SUSCEPTIBILITY TESTING OF PENICILLIN AND OTHER B-LACTAMS APPROVED BY THE [place] FOOD AND DRUG ADMINISTRATION FOR TREATMENT OF B-HEMOLYTIC STREPTOCOCCAL INFECTIONS NEED NOT BE PERFORMED ROUTINELY. ADDITIONAL OBSERVATIONS: 09/10/2022 50-100,000 CFU/ML UROGENITAL TRENT PRESENT NO COMMON PATHOGENSHPV HIGH RISK WITH GENOTYPE, [id number] 15:55:11* Test Item Value Reference Range Interpretation Comme nts HPV HIGH RISK INTERP (test code = 89924) NEGATIVE NEGATIVE HPV 16 (test code = 56110) NEGATIVE HPV 18 (test code = 88194) NEGATIVE HPV, HR, OTHER GENOTYPES (test code = 48344) NEGATIVE Testing methodol ogy is real-time PCR utilizing hydrolysis probes with the Jesusita González 4800 system. The test individually detects genotypes 16 and 18, as well as the other 12 high risk types (31,33,35,39,45,51,52,56 ,58,59,66,68). The expected result is negative. A negative result does not rule out the presence of HPV not included in the genotype set, a low level of infection or specimen sampling error. UNLESS OTHERWISE INDICATED, ALL TESTING PERFORMED [facility] [address] [place] [address] BATTERY CHARGER TESTER: ASHLEY ZARAGOZA M.D. CLIA NUMBER [id number] [facility] [place]. [id number] VAGINAL PATHOGENS DNA [id number] 15:49:27* Test Item Value Reference Range Interpretation Comme nts BEATA SPECIES (test code = 16563) POSITIVE NEGATIVE A G. VAGINALIS (test code = 24191) POSITIVE NEGATIVE A T. VAGINALIS (test code = 70265) NEGATIVE NEGATIVE Note: The [facility] VPIII Microbial Identification Testis a DNA probe test intended for use in the detectionand identification of Beata species, Gardnerellavaginalis and Trichomonas vaginalis nucleic acid. UNLESS OTHERWISE INDICATED, ALL TESTING PERFORMED [facility] [address] [place] [address] BATTERY CHARGER TESTER: ASHLEY ZARAGOZA M.D. [facility] NUMBER [id number] [facility] [place]. [id number] VARICELLA ZOSTER [id number] 13:53:47* Test Item Value Reference Range Interpretation Comme nts VARICELLA ZOSTER IgG (test code = 15244) 51 INDEX SEE BELOW L INTERPRETATI ON VZV IgG NEGATIVE . . . . . . . . . . . . INDEX <135 EQUIVOCAL. . . . . . . . . . . . INDEX 135-164 NOTE: CONSIDER RETESTING IN A CLINICALLY SUITABLE PERIOD OF TIME, NO SOONER THAN 1-2 WEEKS. POSITIVE . . . . . . . . . . . . INDEX >=165 CT/NG, NAAT, [id number] 13:36:33* Test Item Value Reference Range Interpretation Comme nts CHLAMYDIA, NAAT, THINPREP (test code = 40428) NEGATIVE NEGATIVE A negative resul t does not exclude low level infection, specimensampling error, or collection error. Testing is performed with the Jesusita González 6800/8800 systems usingreal-time Polymerase Chain Reaction (PCR) method. GONORRHEA, NAAT, THINPREP (test code = 10865) NEGATIVE NEGATIVE A negative resul t does not exclude low level infection, specimensampling error, or collection error. Testing is performed with the Jesusita González 6800/8800 systems usingreal-time Polymerase Chain Reaction (PCR) method. DRUG ABUSE SCREEN 10 REFLEX [id number] 04:56:34* Test Item Value Reference Range Interpretation Comme nts AMPHETAMINES (test code = 3201) NEGATIVE NEGATIVE BARBITURATES (test code = 3202) NEGATIVE NEGATIVE BENZODIAZEPINES (test code = 3203) NEGATIVE NEGATIVE CANNABINOIDS (test code = 3204) NEGATIVE NEGATIVE COCAINE METABOLITE (test code = 3205) NEGATIVE NEGATIVE OPIATES (test code = 3209) NEGATIVE NEGATIVE OXYCODONE (test code = 28159) NEGATIVE NEGATIVE PHENCYCLIDINE (test code = 3210) NEGATIVE NEGATIVE METHADONE (test code = 3207) NEGATIVE NEGATIVE BUPRENORPHINE (test code = 94044) NEGATIVE NEGATIVE SOURCE (test code = 437967) URINE SEE BELOW FO R THRESHOLDS AND IMPORTANT METHOD NOTES ANALYTE SCREENING CUTOFF CONFIRMATORY CUTOFF AMPHETAMINES 500 NG/ML 100 NG/MLBARBITURATES 200 NG/ML 100 NG/MLBENZODIAZEPINES 200 NG/ML 100 NG/MLCANNABINOIDS (THC) 20 NG/ML 15 NG/MLCOCAINE METABOLITES 150 NG/ML 100 NG/MLOPIATE METABOLITES 300 NG/ML 100 NG/MLOXYCODONE 100 NG/ML 100 NG/MLPHENCYCLIDINE (PCP) 25 NG/ML 25 NG/MLMETHADONE 300 NG/ML 100 NG/MLBUPRENORPHINE 5 NG/ML 5 NG/ML NOTE: Screening methodology is qualitative Enzyme Immunoassay.The screening method may be less sensitive for certain medicationsincluding clonazepam and lorazepam in the benzodiazepine assay andtramadol or fentanyl in the opiate assay, amongst others. Patientcompliance, hydration status, timing and dose of medications, drugabsorption and specimen quality may affect screening assay.For clinical discrepancies, consider directed testing for specificcompounds or contact the laboratory within specimen stability toforward for confirmatory testing. This test is specified for medicalpurposes only. It is not valid for forensic use. UNLESS OTHERWISE INDICATED, ALL TESTING PERFORMED [facility] [address] [place] [address] BATTERY CHARGER TESTER: ASHLEY ZARAGOZA M.D. CLIA NUMBER [id number] [facility] [place]. [id number] OBSTETRIC PANEL + [id number] 04:55:00* Test Item Value Reference Range Interpretation Comme nts WBC (test code = 1001) 11.3 K/UL 3.5-11.0 H RBC (test code = 1002) 4.47 M/UL 3.80-5.40 HEMOGLOBIN (test code = 1003) 12.7 G/DL 11.5-15.5 HEMATOCRIT (test code = 1004) 37.7 % 34.0-45.0 MCV (test code = 1005) 84.3 fL 80.0-99.0 MCH (test code = 1006) 28.4 PG 25.0-33.0 MCHC (test code = 1007) 33.7 G/DL 31.0-36.0 RDW (test code = 1038) 12.7 % 11.5-15.0 NEUTROPHILS (test code = 1008) 75.2 % LYMPHOCYTES (test code = 1010) 19.8 % MONOCYTES (test code = 1011) 3.8 % EOSINOPHILS (test code = 1012) 0.5 % BASOPHILS (test code = 1013) 0.3 % IMMATURE GRANULOCYTES (test code = 1036) 0.4 % NUCLEATED RBCS (test code = 1065) 0.0 /100 WBC'S See_Comment [Automated me ssage] The system which generated this result transmitted reference range: 0.0. The reference range was not used to interpret this result as normal/abnormal. PLATELET COUNT (test code = 1015) 368 K/UL 130-400 ABSOLUTE NEUTROPHILS (test code = 1066) 8.47 K/UL 1.50-7.50 H ABSOLUTE LYMPHOCYTES (test code = 1067) 2.23 K/UL 1.00-4.00 ABSOLUTE MONOCYTES (test code = 1068) 0.43 K/UL 0.20-1.00 ABSOLUTE EOSINOPHILS (test code = 1040) 0.06 K/UL 0.00-0.50 ABSOLUTE BASOPHILS (test code = 1069) 0.03 K/UL 0.00-0.20 ABS IMMATURE GRANULOCYTES (test code = 1020) 0.04 K/UL 0.00-0.10 ABS NUCLEATED RBCS (test code = 62911) 0.00 K/UL 0.00-0.11 BLOOD TYPE AND RH (test code = 3901) A POSITIVE A HISTORICAL RECORD CHECK FOR PREVIOUS RESULTS IS NOT PERFORMED.THESE RESULTS SHOULD BE CORRELATED WITH RESULTS OF PRIOR BLOODTYPING AND ANTIBODY SCREEN STUDIES. ANTIBODY SCREEN (test code = 3902) NEGATIVE NEGATIVE A HISTORICAL RECORD CHECK FOR PREVIOUS RESULTS IS NOT PERFORMED.THESE RESULTS SHOULD BE CORRELATED WITH RESULTS OF PRIOR BLOODTYPING AND ANTIBODY SCREEN STUDIES. RUBELLA ANTIBODY SCREEN (test code = 4600) 10 IU/ML SEE BELOW RUBELLA IgG INTERP (test code = 31205) REACTIVE REACTIVE INTERPRETATI ON UNITS RANGE NON-REACTIVE/NON-IMM UNE IU/ML <10 REACTIVE/IMMUNE IU/ML >=10 HEPATITIS B SURF AG (test code = 2739) NON-REACTIVE NON-REACTIVE RPR (test code = 94362) NON-REACTIVE NON-REACTIVE RPR TITER (test code = 3500) NOT INDIC. TITER NOT INDIC. HIV 1/2 4TH GEN, RFLX CONF (test code = 3514) NON-REACTIVE NON-REACTIVE HEPATITIS C REFLEX [id number] 04:55:00* Test Item Value Reference Range Interpretation Comme nts HEPATITIS C ANTIBODY (test c ode = 4675) NON-REACTIVE NON-REACTIVE VAGINAL PATHOGENS DNA [id number] 17:28:27* Test Item Value Reference Range Interpretation Comme nts BEATA SPECIES (test code = ) NEGATIVE NEGATIVE G. VAGINALIS (test code = 02871) POSITIVE NEGATIVE A T. VAGINALIS (test code = 87901) NEGATIVE NEGATIVE UNLESS OTHERWISE INDICATED, ALL TESTING PERFORMED ATCLINICAL PATHOLOGY [employer] [address] [place] [address] [employer]Y [employer]GER TE[employer]: ASHLEY ZARAGOZA M.D. CLIA NUMBER [id number] [facility] [place]. [id number] VAGINAL PATHOGENS DNA [id number] 00:00:00* Test Item Value Reference Range Interpretation Comme nts BEATA SPECIES (test code = ) NEGATIVE G. VAGINALIS (test code = 47718) POSITIVE T. VAGINALIS (test code = 96661) NEGATIVE VAGINAL PATHOGENS DNA [id number] 00:00:00* Test Item Value Reference Range Interpretation Comme nts BEATA SPECIES (test code = 90267) NEGATIVE G. VAGINALIS (test code = 27850) POSITIVE T. VAGINALIS (test code = 55553) NEGATIVE VAGINAL PATHOGENS DNA [id number] 00:00:00* Test Item Value Reference Range Interpretation Comme nts BEATA SPECIES (test code = 75605) NEGATIVE G. VAGINALIS (test code = 40335) POSITIVE T. VAGINALIS (test code = 30086) NEGATIVE VAGINAL PATHOGENS DNA [id number] 00:00:00* Test Item Value Reference Range Interpretation Comme nts BEATA SPECIES (test code = 98708) NEGATIVE G. VAGINALIS (test code = 12964) POSITIVE T. VAGINALIS (test code = 25034) NEGATIVE CULTURE, [id number] 11:55:32SPECIMEN NUMBER: [id number] CULTURE, URINE SPECIMEN NUMBER: [id number] SPECIMEN COMMENT: URINE SOURCE: URINE REPORT STATUS: FINAL FINAL REPORT: 02/28/2022 10-50,000 CFU/ML UROGENITAL TRENT PRESENT NO C OMMON PATHOGENSCULTURE, [id number] 00:00:00* Test Item Value Reference Range Interpretation Comme nts CULTURE, URINE (test code = 49138) SPECIMEN NUMBER: [id number] CULTURE, [id number] 00:00:00* Test Item Value Reference Range Interpretation Comme nts CULTURE, URINE (test code = 94793) SPECIMEN NUMBER: [id number] CULTURE, [id number] 00:00:00* Test Item Value Reference Range Interpretation Comme nts CULTURE, URINE (test code = 32091) SPECIMEN NUMBER: [id number] CULTURE, [id number] 00:00:00* Test Item Value Reference Range Interpretation Comme nts CULTURE, URINE (test code = 71277) SPECIMEN NUMBER: [id number] CHLAMYDIA, AMPLIFIED, [id number] 00:00:00* Test Item Value Reference Range Interpretation Comme nts CHLAMYDIA, NAAT (test code = 91913) NEGATIVE CHLAMYDIA, AMPLIFIED, [id number] 00:00:00* Test Item Value Reference Range Interpretation Comme nts CHLAMYDIA, NAAT (test code = 69396) NEGATIVE GC, AMPLIFIED, [id number] 00:00:00* Test Item Value Reference Range Interpretation Comme nts GONORRHEA, NAAT (test code = 72208) NEGATIVE GC, AMPLIFIED, [id number] 00:00:00* Test Item Value Reference Range Interpretation Comme nts GONORRHEA, NAAT (test code = 22745) NEGATIVE CHLAMYDIA, AMPLIFIED, [id number] 00:00:00* Test Item Value Reference Range Interpretation Comme nts CHLAMYDIA, NAAT (test code = 83309) NEGATIVE CHLAMYDIA, AMPLIFIED, [id number] 00:00:00* Test Item Value Reference Range Interpretation Comme nts CHLAMYDIA, NAAT (test code = 88552) NEGATIVE CHLAMYDIA, AMPLIFIED, [id number] 00:00:00* Test Item Value Reference Range Interpretation Comme nts CHLAMYDIA, NAAT (test code = 86523) NEGATIVE GC, AMPLIFIED, [id number] 00:00:00* Test Item Value Reference Range Interpretation Comme nts GONORRHEA, NAAT (test code = 49109) NEGATIVE GC, AMPLIFIED, [id number] 00:00:00* Test Item Value Reference Range Interpretation Comme nts GONORRHEA, NAAT (test code = 94414) NEGATIVE GC, AMPLIFIED, [id number] 00:00:00* Test Item Value Reference Range Interpretation Comme nts GONORRHEA, NAAT (test code = 46935) NEGATIVE HCG, [id number] 00:00:00* Test Item Value Reference Range Interpretation Comme nts HCG, QUANTITATIVE (test code = 2506) <5 MIU/ML HCG, [id number] 00:00:00* Test Item Value Reference Range Interpretation Comme nts HCG, QUANTITATIVE (test code = 2506) <5 MIU/ML HCG, [id number] 00:00:00* Test Item Value Reference Range Interpretation Comme nts HCG, QUANTITATIVE (test code = 2506) <5 MIU/ML HCG, [id number] 00:00:00* Test Item Value Reference Range Interpretation Comme nts HCG, QUANTITATIVE (test code = 2506) <5 MIU/ML HCG, [id number] 00:00:00* Test Item Value Reference Range Interpretation Comme nts HCG, QUANTITATIVE (test code = 2506) <5 MIU/ML HCG, [id number] 00:00:00* Test Item Value Reference Range Interpretation Comme nts HCG, QUANTITATIVE (test code = 2506) <5 MIU/ML HCG, [id number] 00:00:00* Test Item Value Reference Range Interpretation Comme nts HCG, QUANTITATIVE (test code = 2506) <5 MIU/ML HCG, [id number] 00:00:00* Test Item Value Reference Range Interpretation Comme nts HCG, QUANTITATIVE (test code = 2506) <5 MIU/ML HIV AB/AG COMBO RFLX [id number] 00:00:00* Test Item Value Reference Range Interpretation Comme nts HIV 1/2 4TH GEN, RFLX CONF ( test code = 3514) NON-REACTIVE HIV AB/AG COMBO RFLX [id number] 00:00:00* Test Item Value Reference Range Interpretation Comme nts HIV 1/2 4TH GEN, RFLX CONF ( test code = 3514) NON-REACTIVE ACUTE HEPATITIS [id number] 00:00:00* Test Item Value Reference Range Interpretation Comme nts HEPATITIS A IgM (test code = 88689) NON-REACTIVE HEPATITIS B CORE IgM (test c ode = 4644) NON-REACTIVE HEPATITIS B SURF AG (test co de = 2739) NON-REACTIVE HEPATITIS C ANTIBODY (test c ode = 4675) NON-REACTIVE INTERPRETATION HEPATITIS A: (test code = 2552) (NOTE) INTERPRETATION HEPATITIS B: (test code = 22488) (NOTE) INTERPRETATION HEPATITIS C: (test code = 62466) (NOTE) ACUTE HEPATITIS [id number] 00:00:00* Test Item Value Reference Range Interpretation Comme nts HEPATITIS A IgM (test code = 99888) NON-REACTIVE HEPATITIS B CORE IgM (test c ode = 4644) NON-REACTIVE HEPATITIS B SURF AG (test co de = 2739) NON-REACTIVE HEPATITIS C ANTIBODY (test c ode = 4675) NON-REACTIVE INTERPRETATION HEPATITIS A: (test code = 2552) (NOTE) INTERPRETATION HEPATITIS B: (test code = 98818) (NOTE) INTERPRETATION HEPATITIS C: (test code = 22671) (NOTE) CHLAMYDIA, AMPLIFIED, [id number] 00:00:00* Test Item Value Reference Range Interpretation Comme nts CHLAMYDIA, NAAT (test code = 12410) TEST NOT PERFORMED CHLAMYDIA, AMPLIFIED, [id number] 00:00:00* Test Item Value Reference Range Interpretation Comme nts CHLAMYDIA, NAAT (test code = 29358) TEST NOT PERFORMED GC, AMPLIFIED, [id number] 00:00:00* Test Item Value Reference Range Interpretation Comme nts GONORRHEA, NAAT (test code = 17557) TEST NOT PERFORMED GC, AMPLIFIED, [id number] 00:00:00* Test Item Value Reference Range Interpretation Comme nts GONORRHEA, NAAT (test code = 41991) TEST NOT PERFORMED HIV AB/AG COMBO RFLX [id number] 00:00:00* Test Item Value Reference Range Interpretation Comme nts HIV 1/2 4TH GEN, RFLX CONF ( test code = 3514) NON-REACTIVE HIV AB/AG COMBO RFLX [id number] 00:00:00* Test Item Value Reference Range Interpretation Comme nts HIV 1/2 4TH GEN, RFLX CONF ( test code = 3514) NON-REACTIVE HIV AB/AG COMBO RFLX [id number] 00:00:00* Test Item Value Reference Range Interpretation Comme nts HIV 1/2 4TH GEN, RFLX CONF ( test code = 3514) NON-REACTIVE ACUTE HEPATITIS [id number] 00:00:00* Test Item Value Reference Range Interpretation Comme nts HEPATITIS A IgM (test code = 96892) NON-REACTIVE HEPATITIS B CORE IgM (test c ode = 4644) NON-REACTIVE HEPATITIS B SURF AG (test co de = 2739) NON-REACTIVE HEPATITIS C ANTIBODY (test c ode = 4675) NON-REACTIVE INTERPRETATION HEPATITIS A: (test code = 2552) (NOTE) INTERPRETATION HEPATITIS B: (test code = 94713) (NOTE) INTERPRETATION HEPATITIS C: (test code = 83789) (NOTE) ACUTE HEPATITIS [id number] 00:00:00* Test Item Value Reference Range Interpretation Comme nts HEPATITIS A IgM (test code = 92499) NON-REACTIVE HEPATITIS B CORE IgM (test c ode = 4644) NON-REACTIVE HEPATITIS B SURF AG (test co de = 2739) NON-REACTIVE HEPATITIS C ANTIBODY (test c ode = 4675) NON-REACTIVE INTERPRETATION HEPATITIS A: (test code = 2552) (NOTE) INTERPRETATION HEPATITIS B: (test code = 01764) (NOTE) INTERPRETATION HEPATITIS C: (test code = 45937) (NOTE) ACUTE HEPATITIS [id number] 00:00:00* Test Item Value Reference Range Interpretation Comme nts HEPATITIS A IgM (test code = 13660) NON-REACTIVE HEPATITIS B CORE IgM (test c ode = 4644) NON-REACTIVE HEPATITIS B SURF AG (test co de = 2739) NON-REACTIVE HEPATITIS C ANTIBODY (test c ode = 4675) NON-REACTIVE INTERPRETATION HEPATITIS A: (test code = 2552) (NOTE) INTERPRETATION HEPATITIS B: (test code = 07875) (NOTE) INTERPRETATION HEPATITIS C: (test code = 00951) (NOTE) CHLAMYDIA, AMPLIFIED, [id number] 00:00:00* Test Item Value Reference Range Interpretation Comme nts CHLAMYDIA, NAAT (test code = 34212) TEST NOT PERFORMED CHLAMYDIA, AMPLIFIED, [id number] 00:00:00* Test Item Value Reference Range Interpretation Comme nts CHLAMYDIA, NAAT (test code = 49441) TEST NOT PERFORMED GC, AMPLIFIED, [id number] 00:00:00* Test Item Value Reference Range Interpretation Comme nts GONORRHEA, NAAT (test code = 11800) TEST NOT PERFORMED GC, AMPLIFIED, [id number] 00:00:00* Test Item Value Reference Range Interpretation Comme nts GONORRHEA, NAAT (test code = 67453) TEST NOT PERFORMED CHLAMYDIA, AMPLIFIED, [id number] 00:00:00* Test Item Value Reference Range Interpretation Comme nts CHLAMYDIA, NAAT (test code = 75376) TEST NOT PERFORMED GC, AMPLIFIED, [id number] 00:00:00* Test Item Value Reference Range Interpretation Comme nts GONORRHEA, NAAT (test code = 63062) TEST NOT PERFORMED [id number] 00:00:00* Test Item Value Reference Range Interpretation Comme nts RPR RESULT (test code = 3501) NON-REACTIVE RPR TITER (test code = 3500) NOT INDIC. TITER [id number] 00:00:00* Test Item Value Reference Range Interpretation Comme nts RPR RESULT (test code = 3501) NON-REACTIVE RPR TITER (test code = 3500) NOT INDIC. TITER [id number] 00:00:00* Test Item Value Reference Range Interpretation Comme nts RPR RESULT (test code = 3501) NON-REACTIVE RPR TITER (test code = 3500) NOT INDIC. TITER [id number] 00:00:00* Test Item Value Reference Range Interpretation Comme nts RPR RESULT (test code = 3501) NON-REACTIVE RPR TITER (test code = 3500) NOT INDIC. TITER [id number] 00:00:00* Test Item Value Reference Range Interpretation Comme nts RPR RESULT (test code = 3501) NON-REACTIVE RPR TITER (test code = 3500) NOT INDIC. TITER [id number] 00:00:00* Test Item Value Reference Range Interpretation Comme nts RPR RESULT (test code = 3501) NON-REACTIVE RPR TITER (test code = 3500) NOT INDIC. TITER [id number] 00:00:00* Test Item Value Reference Range Interpretation Comme nts RPR RESULT (test code = 3501) NON-REACTIVE RPR TITER (test code = 3500) NOT INDIC. TITER [id number] 00:00:00* Test Item Value Reference Range Interpretation Comme nts RPR RESULT (test code = 3501) NON-REACTIVE RPR TITER (test code = 3500) NOT INDIC. TITER CULTURE, [id number] 00:00:00* Test Item Value Reference Range Interpretation Comme nts CULTURE, URINE (test code = 70890) SPECIMEN NUMBER: [id number] CULTURE, [id number] 00:00:00* Test Item Value Reference Range Interpretation Comme nts CULTURE, URINE (test code = 91055) SPECIMEN NUMBER: [id number] CULTURE, [id number] 00:00:00* Test Item Value Reference Range Interpretation Comme nts CULTURE, URINE (test code = 75323) SPECIMEN NUMBER: [id number] CULTURE, [id number] 00:00:00* Test Item Value Reference Range Interpretation Comme nts CULTURE, URINE (test code = 66955) SPECIMEN NUMBER: [id number] CULTURE, [id number] 00:00:00* Test Item Value Reference Range Interpretation Comme nts CULTURE, URINE (test code = 63133) SPECIMEN NUMBER: [id number] CHLAMYDIA, AMPLIFIED, [id number] 00:00:00* Test Item Value Reference Range Interpretation Comme nts CHLAMYDIA, NAAT (test code = 01003) NEGATIVE CHLAMYDIA, AMPLIFIED, [id number] 00:00:00* Test Item Value Reference Range Interpretation Comme nts CHLAMYDIA, NAAT (test code = 73950) NEGATIVE GC, AMPLIFIED, [id number] 00:00:00* Test Item Value Reference Range Interpretation Comme nts GONORRHEA, NAAT (test code = 89272) NEGATIVE GC, AMPLIFIED, [id number] 00:00:00* Test Item Value Reference Range Interpretation Comme nts GONORRHEA, NAAT (test code = 09700) NEGATIVE HIV AB/AG COMBO RFLX [id number] 00:00:00* Test Item Value Reference Range Interpretation Comme nts HIV 1/2 4TH GEN, RFLX CONF ( test code = 3514) NON-REACTIVE HIV AB/AG COMBO RFLX [id number] 00:00:00* Test Item Value Reference Range Interpretation Comme nts HIV 1/2 4TH GEN, RFLX CONF ( test code = 3514) NON-REACTIVE [id number] 00:00:00* Test Item Value Reference Range Interpretation Comme nts RPR RESULT (test code = 3501) NON-REACTIVE RPR TITER (test code = 3500) NOT INDIC. TITER [id number] 00:00:00* Test Item Value Reference Range Interpretation Comme nts RPR RESULT (test code = 3501) NON-REACTIVE RPR TITER (test code = 3500) NOT INDIC. TITER [id number] 00:00:00* Test Item Value Reference Range Interpretation Comme nts RPR RESULT (test code = 3501) NON-REACTIVE RPR TITER (test code = 3500) NOT INDIC. TITER CHLAMYDIA, AMPLIFIED, [id number] 00:00:00* Test Item Value Reference Range Interpretation Comme nts CHLAMYDIA, NAAT (test code = 17977) NEGATIVE CHLAMYDIA, AMPLIFIED, [id number] 00:00:00* Test Item Value Reference Range Interpretation Comme nts CHLAMYDIA, NAAT (test code = 61428) NEGATIVE CHLAMYDIA, AMPLIFIED, [id number] 00:00:00* Test Item Value Reference Range Interpretation Comme nts CHLAMYDIA, NAAT (test code = 87765) NEGATIVE GC, AMPLIFIED, [id number] 00:00:00* Test Item Value Reference Range Interpretation Comme nts GONORRHEA, NAAT (test code = 57123) NEGATIVE GC, AMPLIFIED, [id number] 00:00:00* Test Item Value Reference Range Interpretation Comme nts GONORRHEA, NAAT (test code = 77437) NEGATIVE HIV AB/AG COMBO RFLX [id number] 00:00:00* Test Item Value Reference Range Interpretation Comme nts HIV 1/2 4TH GEN, RFLX CONF ( test code = 3514) NON-REACTIVE HIV AB/AG COMBO RFLX [id number] 00:00:00* Test Item Value Reference Range Interpretation Comme nts HIV 1/2 4TH GEN, RFLX CONF ( test code = 3514) NON-REACTIVE [id number] 00:00:00* Test Item Value Reference Range Interpretation Comme nts RPR RESULT (test code = 3501) NON-REACTIVE RPR TITER (test code = 3500) NOT INDIC. TITER [id number] 00:00:00* Test Item Value Reference Range Interpretation Comme nts RPR RESULT (test code = 3501) NON-REACTIVE RPR TITER (test code = 3500) NOT INDIC. TITER [id number] 00:00:00* Test Item Value Reference Range Interpretation Comme nts RPR RESULT (test code = 3501) NON-REACTIVE RPR TITER (test code = 3500) NOT INDIC. TITER GC, AMPLIFIED, [id number] 00:00:00* Test Item Value Reference Range Interpretation Comme nts GONORRHEA, NAAT (test code = 99364) NEGATIVE HIV AB/AG COMBO RFLX [id number] 00:00:00* Test Item Value Reference Range Interpretation Comme nts HIV 1/2 4TH GEN, RFLX CONF ( test code = 3514) NON-REACTIVE [id number] 00:00:00* Test Item Value Reference Range Interpretation Comme nts RPR RESULT (test code = 3501) NON-REACTIVE RPR TITER (test code = 3500) NOT INDIC. TITER [id number] 00:00:00* Test Item Value Reference Range Interpretation Comme nts RPR RESULT (test code = 3501) NON-REACTIVE RPR TITER (test code = 3500) NOT INDIC. TITER VAGINAL PATHOGENS DNA [id number] 00:00:00* Test Item Value Reference Range Interpretation Comme nts BEATA SPECIES (test code = 50216) NEGATIVE G. VAGINALIS (test code = 82245) NEGATIVE T. VAGINALIS (test code = 39129) NEGATIVE VAGINAL PATHOGENS DNA [id number] 00:00:00* Test Item Value Reference Range Interpretation Comme nts BEATA SPECIES (test code = ) NEGATIVE G. VAGINALIS (test code = 91267) NEGATIVE T. VAGINALIS (test code = 07584) NEGATIVE VAGINAL PATHOGENS DNA [id number] 00:00:00* Test Item Value Reference Range Interpretation Comme nts BEATA SPECIES (test code = 05453) NEGATIVE G. VAGINALIS (test code = 32684) NEGATIVE T. VAGINALIS (test code = 68548) NEGATIVE VAGINAL PATHOGENS DNA [id number] 00:00:00* Test Item Value Reference Range Interpretation Comme nts BEATA SPECIES (test code = 42812) NEGATIVE G. VAGINALIS (test code = 69332) NEGATIVE T. VAGINALIS (test code = 38173) NEGATIVE VAGINAL PATHOGENS DNA [id number] 00:00:00* Test Item Value Reference Range Interpretation Comme nts BEATA SPECIES (test code = 11079) NEGATIVE G. VAGINALIS (test code = 08494) NEGATIVE T. VAGINALIS (test code = 02881) NEGATIVE COMPREHENSIVE METABOLIC [id number] 00:00:00* Test Item Value Reference Range Interpretation Comme nts GLUCOSE (test code = 2217) 94 MG/DL BUN (test code = 2208) 11 MG/DL CREATININE (test code = 2214) 0.63 MG/DL eGFR AMER. (test cod e = 73396) 140 ML/MIN/1.73 eGFR NON- AMER. (test code = 68974) 120 ML/MIN/1.73 CALC BUN/CREAT (test code = 2235) 17 RATIO SODIUM (test code = 2231) 138 MEQ/L POTASSIUM (test code = 2228) 4.4 MEQ/L CHLORIDE (test code = 2215) 102 MEQ/L CARBON DIOXIDE (test code = 2206) 25 MEQ/L CALCIUM (test code = 2209) 9.7 MG/DL PROTEIN, TOTAL (test code = 2229) 7.4 G/DL ALBUMIN (test code = 2201) 4.5 G/DL CALC GLOBULIN (test code = 2240) 2.9 G/DL CALC A/G RATIO (test code = 2234) 1.6 RATIO BILIRUBIN, TOTAL (test code = 2207) 0.3 MG/DL ALKALINE PHOSPHATASE (test code = 2204) 100 U/L AST (test code = 2218) 22 U/L ALT (test code = 2219) 30 U/L COMPREHENSIVE METABOLIC [id number] 00:00:00* Test Item Value Reference Range Interpretation Comme nts GLUCOSE (test code = 2217) 94 MG/DL BUN (test code = 2208) 11 MG/DL CREATININE (test code = 2214) 0.63 MG/DL eGFR AMER. (test cod e = 05011) 140 ML/MIN/1.73 eGFR NON- AMER. (test code = 46201) 120 ML/MIN/1.73 CALC BUN/CREAT (test code = 2235) 17 RATIO SODIUM (test code = 2231) 138 MEQ/L POTASSIUM (test code = 2228) 4.4 MEQ/L CHLORIDE (test code = 2215) 102 MEQ/L CARBON DIOXIDE (test code = 2206) 25 MEQ/L CALCIUM (test code = 2209) 9.7 MG/DL PROTEIN, TOTAL (test code = 2229) 7.4 G/DL ALBUMIN (test code = 2201) 4.5 G/DL CALC GLOBULIN (test code = 2240) 2.9 G/DL CALC A/G RATIO (test code = 2234) 1.6 RATIO BILIRUBIN, TOTAL (test code = 2207) 0.3 MG/DL ALKALINE PHOSPHATASE (test code = 2204) 100 U/L AST (test code = 2218) 22 U/L ALT (test code = 2219) 30 U/L COMPREHENSIVE METABOLIC [id number] 00:00:00* Test Item Value Reference Range Interpretation Comme nts GLUCOSE (test code = 2217) 94 MG/DL BUN (test code = 2208) 11 MG/DL CREATININE (test code = 2214) 0.63 MG/DL eGFR AMER. (test cod e = 07896) 140 ML/MIN/1.73 eGFR NON- AMER. (test code = 84444) 120 ML/MIN/1.73 CALC BUN/CREAT (test code = 2235) 17 RATIO SODIUM (test code = 2231) 138 MEQ/L POTASSIUM (test code = 2228) 4.4 MEQ/L CHLORIDE (test code = 2215) 102 MEQ/L CARBON DIOXIDE (test code = 2206) 25 MEQ/L CALCIUM (test code = 2209) 9.7 MG/DL PROTEIN, TOTAL (test code = 2229) 7.4 G/DL ALBUMIN (test code = 2201) 4.5 G/DL CALC GLOBULIN (test code = 2240) 2.9 G/DL CALC A/G RATIO (test code = 2234) 1.6 RATIO BILIRUBIN, TOTAL (test code = 2207) 0.3 MG/DL ALKALINE PHOSPHATASE (test code = 2204) 100 U/L AST (test code = 2218) 22 U/L ALT (test code = 2219) 30 U/L COMPREHENSIVE METABOLIC [id number] 00:00:00* Test Item Value Reference Range Interpretation Comme nts GLUCOSE (test code = 2217) 94 MG/DL BUN (test code = 2208) 11 MG/DL CREATININE (test code = 2214) 0.63 MG/DL eGFR AMER. (test cod e = 48376) 140 ML/MIN/1.73 eGFR NON- AMER. (test code = 18967) 120 ML/MIN/1.73 CALC BUN/CREAT (test code = 2235) 17 RATIO SODIUM (test code = 2231) 138 MEQ/L POTASSIUM (test code = 2228) 4.4 MEQ/L CHLORIDE (test code = 2215) 102 MEQ/L CARBON DIOXIDE (test code = 2206) 25 MEQ/L CALCIUM (test code = 2209) 9.7 MG/DL PROTEIN, TOTAL (test code = 2229) 7.4 G/DL ALBUMIN (test code = 2201) 4.5 G/DL CALC GLOBULIN (test code = 2240) 2.9 G/DL CALC A/G RATIO (test code = 2234) 1.6 RATIO BILIRUBIN, TOTAL (test code = 2207) 0.3 MG/DL ALKALINE PHOSPHATASE (test code = 2204) 100 U/L AST (test code = 2218) 22 U/L ALT (test code = 2219) 30 U/L COMPREHENSIVE METABOLIC [id number] 00:00:00* Test Item Value Reference Range Interpretation Comme nts GLUCOSE (test code = 2217) 94 MG/DL BUN (test code = 2208) 11 MG/DL CREATININE (test code = 2214) 0.63 MG/DL eGFR AMER. (test cod e = 12885) 140 ML/MIN/1.73 eGFR NON- AMER. (test code = 10319) 120 ML/MIN/1.73 CALC BUN/CREAT (test code = 2235) 17 RATIO SODIUM (test code = 2231) 138 MEQ/L POTASSIUM (test code = 2228) 4.4 MEQ/L CHLORIDE (test code = 2215) 102 MEQ/L CARBON DIOXIDE (test code = 2206) 25 MEQ/L CALCIUM (test code = 2209) 9.7 MG/DL PROTEIN, TOTAL (test code = 2229) 7.4 G/DL ALBUMIN (test code = 2201) 4.5 G/DL CALC GLOBULIN (test code = 2240) 2.9 G/DL CALC A/G RATIO (test code = 2234) 1.6 RATIO BILIRUBIN, TOTAL (test code = 2207) 0.3 MG/DL ALKALINE PHOSPHATASE (test code = 2204) 100 U/L AST (test code = 2218) 22 U/L ALT (test code = 2219) 30 U/L PAP TEST, THINPREP, [id number] 00:00:00* Test Item Value Reference Range Interpretation Comme nts SOURCE: (test code = 8001) Cervical/Endocervical SLIDES: (test code = 8011) 1 LMP: (test code = 8021) 2020-09-03 SPECIMEN ADEQUACY: (test code = 55913) (NOTE) INTERPRETATION: (test code = 44295) NILM/NO EPITH. ABNORMALITY;SEE BELOW OTHER COMMENTS: (test code = 8081) (NOTE) LEAD QUALITY TECHNICIAN: (test code = 8101) OLIVER Gomez(ASCP)IAC LOCATION: (test code = 28545) (NOTE) CPT: (test code = 8140) (NOTE) PAP TEST, THINPREP, [id number] 00:00:00* Test Item Value Reference Range Interpretation Comme nts SOURCE: (test code = 8001) Cervical/Endocervical SLIDES: (test code = 8011) 1 LMP: (test code = 8021) 2020-09-03 SPECIMEN ADEQUACY: (test code = 12373) (NOTE) INTERPRETATION: (test code = 80357) NILM/NO EPITH. ABNORMALITY;SEE BELOW OTHER COMMENTS: (test code = 8081) (NOTE) LEAD QUALITY TECHNICIAN: (test code = 8101) OLIVER Gomez(ASCP)IAC LOCATION: (test code = 59455) (NOTE) CPT: (test code = 8140) (NOTE) PAP TEST, THINPREP, [id number] 00:00:00* Test Item Value Reference Range Interpretation Comme nts SOURCE: (test code = 8001) Cervical/Endocervical SLIDES: (test code = 8011) 1 LMP: (test code = 8021) 2020-09-03 SPECIMEN ADEQUACY: (test code = 14349) (NOTE) INTERPRETATION: (test code = 01206) NILM/NO EPITH. ABNORMALITY;SEE BELOW OTHER COMMENTS: (test code = 8081) (NOTE) LEAD QUALITY TECHNICIAN: (test code = 8101) OLIVER Gomez(ASCP)IAC LOCATION: (test code = 74417) (NOTE) CPT: (test code = 8140) (NOTE) PAP TEST, THINPREP, [id number] 00:00:00* Test Item Value Reference Range Interpretation Comme nts SOURCE: (test code = 8001) Cervical/Endocervical SLIDES: (test code = 8011) 1 LMP: (test code = 8021) 2020-09-03 SPECIMEN ADEQUACY: (test code = 60127) (NOTE) INTERPRETATION: (test code = 96022) NILM/NO EPITH. ABNORMALITY;SEE BELOW OTHER COMMENTS: (test code = 8081) (NOTE) LEAD QUALITY TECHNICIAN: (test code = 8101) OLIVER Gomez(ASCP)IAC LOCATION: (test code = 15206) (NOTE) CPT: (test code = 8140) (NOTE) PAP TEST, THINPREP, [id number] 00:00:00* Test Item Value Reference Range Interpretation Comme nts SOURCE: (test code = 8001) Cervical/Endocervical SLIDES: (test code = 8011) 1 LMP: (test code = 8021) 2020-09-03 SPECIMEN ADEQUACY: (test code = 90308) (NOTE) INTERPRETATION: (test code = 56155) NILM/NO EPITH. ABNORMALITY;SEE BELOW OTHER COMMENTS: (test code = 8081) (NOTE) LEAD QUALITY TECHNICIAN: (test code = 8101) OLIVER Gomez(ASCP)IAC LOCATION: (test code = 11735) (NOTE) CPT: (test code = 8140) (NOTE) HIV AB/AG COMBO RFLX [id number] 00:00:00* Test Item Value Reference Range Interpretation Comme nts HIV 1/2 4TH GEN, RFLX CONF ( test code = 3514) NON-REACTIVE HIV AB/AG COMBO RFLX [id number] 00:00:00* Test Item Value Reference Range Interpretation Comme nts HIV 1/2 4TH GEN, RFLX CONF ( test code = 3514) NON-REACTIVE GC AND CHLAMYDIA AMPLIFIED, [id number] 00:00:00* Test Item Value Reference Range Interpretation Comme nts GONORRHEA, TMA (test code = 53096) NEGATIVE CHLAMYDIA, TMA (test code = 41642) NEGATIVE GC AND CHLAMYDIA AMPLIFIED, [id number] 00:00:00* Test Item Value Reference Range Interpretation Comme nts GONORRHEA, TMA (test code = 49754) NEGATIVE CHLAMYDIA, TMA (test code = 75010) NEGATIVE [id number] 00:00:00* Test Item Value Reference Range Interpretation Comme nts RPR RESULT (test code = 3501) NON-REACTIVE RPR TITER (test code = 3500) NOT INDIC. TITER [id number] 00:00:00* Test Item Value Reference Range Interpretation Comme nts RPR RESULT (test code = 3501) NON-REACTIVE RPR TITER (test code = 3500) NOT INDIC. TITER HIV AB/AG COMBO RFLX [id number] 00:00:00* Test Item Value Reference Range Interpretation Comme nts HIV 1/2 4TH GEN, RFLX CONF ( test code = 3514) NON-REACTIVE [id number] 00:00:00* Test Item Value Reference Range Interpretation Comme nts RPR RESULT (test code = 3501) NON-REACTIVE RPR TITER (test code = 3500) NOT INDIC. TITER [id number] 00:00:00* Test Item Value Reference Range Interpretation Comme nts TESTOSTERONE (test code = 2830) 43 NG/DL [id number] 00:00:00* Test Item Value Reference Range Interpretation Comme nts TESTOSTERONE (test code = 2830) 43 NG/DL HPV HIGH RISK WITH GENOTYPE, [id number] 00:00:00* Test Item Value Reference Range Interpretation Comme nts HPV HIGH RISK INTERP (test c ode = 98565) NEGATIVE HPV 16 (test code = 69999) NEGATIVE HPV 18 (test code = 32227) NEGATIVE HPV, HR, OTHER GENOTYPES (te st code = 35195) NEGATIVE HPV HIGH RISK WITH GENOTYPE, [id number] 00:00:00* Test Item Value Reference Range Interpretation Comme nts HPV HIGH RISK INTERP (test c ode = 67133) NEGATIVE HPV 16 (test code = 94728) NEGATIVE HPV 18 (test code = 33401) NEGATIVE HPV, HR, OTHER GENOTYPES (te st code = 56997) NEGATIVE GC AND CHLAMYDIA AMPLIFIED, [id number] 00:00:00* Test Item Value Reference Range Interpretation Comme nts GONORRHEA, TMA (test code = 55076) NEGATIVE CHLAMYDIA, TMA (test code = 17757) NEGATIVE FSH + LH [id number] 00:00:00* Test Item Value Reference Range Interpretation Comme nts FOLLICLE STIM HORMONE (test code = 2700) 7.0 IU/L LUTEINIZING HORMONE (test co de = 2776) 12.1 IU/L FSH + LH [id number] 00:00:00* Test Item Value Reference Range Interpretation Comme nts FOLLICLE STIM HORMONE (test code = 2700) 7.0 IU/L LUTEINIZING HORMONE (test co de = 2776) 12.1 IU/L [id number] 00:00:00* Test Item Value Reference Range Interpretation Comme nts PROLACTIN (test code = 2800) 12.5 NG/ML [id number] 00:00:00* Test Item Value Reference Range Interpretation Comme nts PROLACTIN (test code = 2800) 12.5 NG/ML [id number] 00:00:00* Test Item Value Reference Range Interpretation Comme nts ESTRADIOL (test code = 2505) 39.3 PG/ML [id number] 00:00:00* Test Item Value Reference Range Interpretation Comme nts ESTRADIOL (test code = 2505) 39.3 PG/ML [id number] 00:00:00* Test Item Value Reference Range Interpretation Comme nts ESTRADIOL (test code = 2505) 39.3 PG/ML HIV AB/AG COMBO RFLX [id number] 00:00:00* Test Item Value Reference Range Interpretation Comme nts HIV 1/2 4TH GEN, RFLX CONF ( test code = 3514) NON-REACTIVE [id number] 00:00:00* Test Item Value Reference Range Interpretation Comme nts RPR RESULT (test code = 3501) NON-REACTIVE RPR TITER (test code = 3500) NOT INDIC. TITER HIV AB/AG COMBO RFLX [id number] 00:00:00* Test Item Value Reference Range Interpretation Comme nts HIV 1/2 4TH GEN, RFLX CONF ( test code = 3514) NON-REACTIVE GC AND CHLAMYDIA AMPLIFIED, [id number] 00:00:00* Test Item Value Reference Range Interpretation Comme nts GONORRHEA, TMA (test code = 09968) NEGATIVE CHLAMYDIA, TMA (test code = 11725) NEGATIVE GC AND CHLAMYDIA AMPLIFIED, [id number] 00:00:00* Test Item Value Reference Range Interpretation Comme nts GONORRHEA, TMA (test code = 53614) NEGATIVE CHLAMYDIA, TMA (test code = 77226) NEGATIVE [id number] 00:00:00* Test Item Value Reference Range Interpretation Comme nts RPR RESULT (test code = 3501) NON-REACTIVE RPR TITER (test code = 3500) NOT INDIC. TITER [id number] 00:00:00* Test Item Value Reference Range Interpretation Comme nts RPR RESULT (test code = 3501) NON-REACTIVE RPR TITER (test code = 3500) NOT INDIC. TITER [id number] 00:00:00* Test Item Value Reference Range Interpretation Comme nts RPR RESULT (test code = 3501) NON-REACTIVE RPR TITER (test code = 3500) NOT INDIC. TITER [id number] 00:00:00* Test Item Value Reference Range Interpretation Comme nts RPR RESULT (test code = 3501) NON-REACTIVE RPR TITER (test code = 3500) NOT INDIC. TITER HPV HIGH RISK WITH GENOTYPE, [id number] 00:00:00* Test Item Value Reference Range Interpretation Comme nts HPV HIGH RISK INTERP (test c ode = 38742) NEGATIVE HPV 16 (test code = 78909) NEGATIVE HPV 18 (test code = 39277) NEGATIVE HPV, HR, OTHER GENOTYPES (te st code = 69826) NEGATIVE HPV HIGH RISK WITH GENOTYPE, [id number] 00:00:00* Test Item Value Reference Range Interpretation Comme nts HPV HIGH RISK INTERP (test c ode = 02312) NEGATIVE HPV 16 (test code = 70370) NEGATIVE HPV 18 (test code = 55315) NEGATIVE HPV, HR, OTHER GENOTYPES (te st code = 27207) NEGATIVE [id number] 00:00:00* Test Item Value Reference Range Interpretation Comme nts TESTOSTERONE (test code = 2830) 43 NG/DL [id number] 00:00:00* Test Item Value Reference Range Interpretation Comme nts TESTOSTERONE (test code = 2830) 43 NG/DL FSH + LH [id number] 00:00:00* Test Item Value Reference Range Interpretation Comme nts FOLLICLE STIM HORMONE (test code = 2700) 7.0 IU/L LUTEINIZING HORMONE (test co de = 2776) 12.1 IU/L FSH + LH [id number] 00:00:00* Test Item Value Reference Range Interpretation Comme nts FOLLICLE STIM HORMONE (test code = 2700) 7.0 IU/L LUTEINIZING HORMONE (test co de = 2776) 12.1 IU/L [id number] 00:00:00* Test Item Value Reference Range Interpretation Comme nts PROLACTIN (test code = 2800) 12.5 NG/ML [id number] 00:00:00* Test Item Value Reference Range Interpretation Comme nts PROLACTIN (test code = 2800) 12.5 NG/ML [id number] 00:00:00* Test Item Value Reference Range Interpretation Comme nts ESTRADIOL (test code = 2505) 39.3 PG/ML [id number] 00:00:00* Test Item Value Reference Range Interpretation Comme nts ESTRADIOL (test code = 2505) 39.3 PG/ML [id number] 00:00:00* Test Item Value Reference Range Interpretation Comme nts ESTRADIOL (test code = 2505) 39.3 PG/ML [id number] 00:00:00* Test Item Value Reference Range Interpretation Comme nts TESTOSTERONE (test code = 2830) 43 NG/DL HPV HIGH RISK WITH GENOTYPE, [id number] 00:00:00* Test Item Value Reference Range Interpretation Comme nts HPV HIGH RISK INTERP (test c ode = 98936) NEGATIVE HPV 16 (test code = 41740) NEGATIVE HPV 18 (test code = 07901) NEGATIVE HPV, HR, OTHER GENOTYPES (te st code = 32288) NEGATIVE FSH + LH [id number] 00:00:00* Test Item Value Reference Range Interpretation Comme nts FOLLICLE STIM HORMONE (test code = 2700) 7.0 IU/L LUTEINIZING HORMONE (test co de = 2776) 12.1 IU/L [id number] 00:00:00* Test Item Value Reference Range Interpretation Comme nts PROLACTIN (test code = 2800) 12.5 NG/ML [id number] 00:00:00* Test Item Value Reference Range Interpretation Comme nts ESTRADIOL (test code = 2505) 39.3 PG/ML [id number] 00:00:00* Test Item Value Reference Range Interpretation Comme nts ESTRADIOL (test code = 2505) 39.3 PG/ML VAGINAL PATHOGENS DNA [id number] 00:00:00* Test Item Value Reference Range Interpretation Comme nts BEATA SPECIES (test code = ) NEGATIVE G. VAGINALIS (test code = 85712) NEGATIVE T. VAGINALIS (test code = 30193) POSITIVE VAGINAL PATHOGENS DNA [id number] 00:00:00* Test Item Value Reference Range Interpretation Comme nts BEATA SPECIES (test code = 10884) NEGATIVE G. VAGINALIS (test code = 84258) NEGATIVE T. VAGINALIS (test code = 51664) POSITIVE VAGINAL PATHOGENS DNA [id number] 00:00:00* Test Item Value Reference Range Interpretation Comme nts BEATA SPECIES (test code = 63277) NEGATIVE G. VAGINALIS (test code = 45913) NEGATIVE T. VAGINALIS (test code = 63652) POSITIVE VAGINAL PATHOGENS DNA [id number] 00:00:00* Test Item Value Reference Range Interpretation Comme nts BEATA SPECIES (test code = 86438) NEGATIVE G. VAGINALIS (test code = 05201) NEGATIVE T. VAGINALIS (test code = 56281) POSITIVE VAGINAL PATHOGENS DNA [id number] 00:00:00* Test Item Value Reference Range Interpretation Comme nts BEATA SPECIES (test code = 43074) NEGATIVE G. VAGINALIS (test code = 74347) NEGATIVE T. VAGINALIS (test code = 42883) POSITIVE History and Physical Notes Date/Time Note Provider Source 2023-03-24 07:55:58 1959-44-11X03:55:58F ormatting of this note is different from the original.TRIAGE HISTORY & PHYSICALIDENTIFYING DATAVladislav Rodas is 32 year old, /White, 39w4d, female with SYLVIA 03/27/2023, by Last Menstrual Period. : 1990MRN: [id number] Care Physician: PATIENT DOES NOT HAVE A PCPCHIEF COMPLAINTInduction at 39 weeksHISTORY OF PRESENT ILLNESSVladislav Rodas is a 32 year old female @ 39w4d +FM. No VB, LOF. + CTX. No pre-eclampsia sx or other complaints.PAST OBSTETRIC HISTORYOB History Para Term AB Living 1 SAB IAB Ectopic Multiple Live Births # Outcome Date GA Lbr Dylon/2nd Weight Sex Delivery Anes PTL Lv 1 Current PAST MEDICAL HISTORYProblem list: Patient Active Problem List Diagnosis Date Noted 39 weeks gestation of 03/24/2023 Positive GBS test 03/22/2023 Obesity (BMI 30-39.9) 03/15/2023 Chlamydia trachomatis infection of lower genitourinary sites 03/03/2023 High-risk in third trimester 02/14/2023 Heartburn during , antepartum 01/20/2023 Acute lower respiratory infection 01/20/2023 Need for Tdap vaccination 01/20/2023 Insufficient care in third trimester 09/27/2022 Obesity in , antepartum 09/27/2022 Transportation insecurity 09/27/2022 Other and unspecified diseases of the oral soft tissues 05/10/2017 Operations: Past Surgical History: Procedure Laterality Date SURGICAL EXT TOOTH COMP PATY IMPACTION-D7240 06/08/2017 SURGICAL EXTRACTION - ERUPTED TEETH 06/08/2017 TOOTH EXTRACTION N/A 06/08/2017 Surgeon: Suresh Bosch; Location: [facility] Past Medical History: Diagnosis Date Asthma Heart murmur Seasonal allergies CURRENT HEALTH STATUSMedications: Current Facility-Administered Medications Medication Dose Route Frequency Last Rate Last Admin carboprost (HEMABATE) injection 250 mcg 250 mcg Intramuscular Q2HPRN D5W-LR IV infusion 1,000 mL 1,000 mL IV Infusion TITRATE 125 mL/hr at 03/24/23 0240 1,000 mL at 03/24/23 0240 FENTanyl PF (SUBLIMAZE (PF)) injection 100 mcg 100 mcg Slow IV Push Q1HPRN 100 mcg at 03/24/23 0738 lactated ringers IV infusion 500 mL 500 mL IV Infusion ONCE lactated ringers IV infusion 500 mL 500 mL IV Infusion PRN - SEE INSTRUCTIONS lactated ringers IV infusion 500 mL 500 mL IV Infusion PRN - SEE INSTRUCTIONS lidocaine 1% (PF) (XYLOCAINE) injection 0.3 mL 0.3 mL Infiltration PRN - SEE INSTRUCTIONS methylergonovine (METHERGINE) injection 0.2 mg 0.2 mg Intramuscular Q4HPRN misoprostol (CYTOTEC) quarter-tablet 25 mcg 25 mcg Vaginal Q4H ABX miSOPROStoL (CYTOTEC) tablet 200 mcg 200 mcg Rectal PRN ondansetron (ZOFRAN (PF)) injection 4 mg 4 mg Slow IV Push Q8HPRN oxytocin (PITOCIN) 30 units in NS 500 mL IV infusion 600 mL/hr IV Infusion PRN oxytocin (PITOCIN) 30 units in NS 500 mL IV infusion 2-40 ignacio-units/min IV Infusion TITRATE 2 mL/hr at 03/24/23 0822 2 ignacio-units/min at 03/24/23 0822 penicillin g pot in dextrose 3 million unit/50 mL RTU iv piggyback 3 Million Units 3 Million Units IV Piggyback Q4H ABX sodium citrate-citric acid (BICITRA) 500-334 mg/5 mL solution 30 mL 30 mL Oral PRE-PROCEDURE ONCE sodium citrate-citric acid (BICITRA) 500-334 mg/5 mL solution 30 mL 30 mL Oral PRE-PROCEDURE ONCE terbutaline (BRETHINE) injection 0.25 mg 0.25 mg Subcutaneous PRN tranexamic acid (CYKLOKAPRON) 1,000 mg in NaCl 0.9% (NS) 250 mL piggyback 1,000 mg IV Piggyback PRN Allergies and drug reactions: Patient has no known allergies.HOME MEDICATIONSMedications Prior to Admission Medication Sig Dispense Refill Last Dose albuterol 90 mcg/actuation inhaler Inhale 2 Puffs every 6 (six) hours as needed for Wheezing, Shortness of Breath, Bronchospasm or Chest tightness. 8.5 g 1 Not Taking omeprazole 20 mg capsule Take 1 capsule by mouth in the morning. 30 capsule 2 Not Taking SOCIAL HISTORYTobacco History: Social History Tobacco Use Smoking Status Former Packs/day: 0.25 Types: Cigarettes Quit date: 08/22/2014 Years since quittin.5 Smokeless Tobacco Never Drug History: Social History Substance and Sexual Activity Drug Use Not Currently Comment: 2014 Alcohol History: Social History Substance and Sexual Activity Alcohol Use Not Currently FAMILY HISTORYFamily History Problem Relation Age of Onset Diabetes Mother Diabetes Maternal Grandmother Osteoporosis Paternal Grandmother REVIEW OF SYSTEMSGeneral: negativeConstitutional: negativeEyes: negativeENT/Mouth: negativeCardiovascular: negativeRespiratory: negativeGastrointestinal:negativeGenitouri nary: negativeMusculoskeletal: negativeSkin/breast: negativeNeurological: negativePsychiatric: negativeEndocrine: negativeHemat/Lymph: negativeAllergic/Immuno:noneVITAL SIGNSBP: (105-129)/(50-81) Temp: [36.1 ?C (97 ?F)] Temp source: Temporal Artery (03/24 0700)Pulse: [71-84] Resp: [16-18] SpO2: [100 %] Height: [149.9 cm (4' 11")] Weight: [82.7 kg (182 lb 6.4 oz)] BMI (calculated): [36.84] PHYSICAL EXAMINATIONSGen: alert and oriented, well appearing, no distressCV: RRR, normal S1/S2, no m/r/gResp: normal work of breathing, lungs CTABAbd: gravid, soft, NTTPExt: no calf tenderness or edemaGU: SVE 3/80/-3, status post AROM (minimal clear fluid) REVIEW OF LABORATORY, PATHOLOGY, AND RADIOLOGY DATALab results:Type & Screen HIV Hep B Syphilis Chlamydia ABO & RH Date Value Ref Range Status 03/24/2023 A Positive Final No results found for: "HIVMULTIPLEX" No components found for: "HBSHBSAG" No results found for: "SYPIGG" C. trachomatis Nucleic Acid Date Value Ref Range Status 03/01/2023 Positive (A) Negative Final IAT Date Value Ref Range Status 03/24/2023 Negative Final Varicella Rubella Glucose Group B Strep CBC No results found for: "VZVIGG" No results found for: "RUBG" No results found for: "DWFI3YT" No results found for: "CGBS" HGB Date Value Ref Range Status 03/22/2023 11.9 11.6 - 15.0 g/dL Final HCT Date Value Ref Range Status 03/22/2023 35.9 35.7 - 45.2 % Final PLT Date Value Ref Range Status 03/22/2023 395 (H) 166 - 358 10*3/?L Final Active Hospital Problems Diagnosis Date Noted 39 weeks gestation of 03/24/2023 Positive GBS test 03/22/2023 Obesity (BMI 30-39.9) 03/15/2023 High-risk in third trimester 02/14/2023 Insufficient care in third trimester 09/27/2022 Obesity in , antepartum 09/27/2022 Resolved Hospital Problems No resolved problems to display. Present on Admission: 39 weeks gestation of High-risk in third trimester Insufficient care in third trimester Obesity (BMI 30-39.9) Obesity in , antepartum Positive GBS testPlacenta Accreta ScreeningPrior ? : NoPrior Uterine Surgery?: NoPlacenta low lying/previa in current ? : NoScreening outcome:A positive screening outcome indicates a history of prior delivery or prior uterine surgery, AND the presence of either a placenta low lying/previa or ultrasound suspicion of PASD in the current . Negative screening.ASSESSMENT AND PLANNicole Melissa Rodas is a 32 year old female @ 39w4d here for an elective induction.Induction-Status post AROM. Misoprostol for cervical ripening. Will start Pitocin per protocol.- Cephalic presentation confirmed- GBS positive: PCN ordered- Roland EFW less than [address] Washburn, please see OB Summary for more detailsMendoza Washburn MD 03/24/2023 8:26 AM 48988-7Kypkcya and physical xyfdTO9180-92-66C56:27:40History and physical noteTXT1.2.840.372254.1.13.104.2.7.2.02550 9|[id number] for patient cygn74717-3Kvecnvf and physical noteLNUT[address] Qd[id number] TXKAOHEIVSKKULRI1194-56-55W06:27:401.2.840 .327709.1.72.3.15|1.2.840.010975.1.13.104. 2.7.2.727879_[id number] [facility] Procedure Notes Date/Time Note Provider Source 2023-03-24 09:46:31 [id number]:46:31Associated Order(s): Central Neuraxial Block Central Neuraxial Block Date/Time: 03/24/2023 8:45 AMPerformed by: Antelmo Irwin CRNAAuthorized by: Stalin Blake MD Patient Location: OBEnd Time: 03/24/2023 9:27 AMReason for Block: OB request, Patient request, Labor analgesia, Surgical anesthesia and Post-op pain managementStaff: Anesthesiologist: Stalin Blake MD Resident/PANELBOARD TANK PUMPER: Antelmo Iwrin CRNA Performed by: anesthesiologistPreanesthetic Checklist: patient identified, IV checked, risks and benefits explained, monitors and equipment checked, timeout performed, pre-op evaluation, site marked and anesthesia consentProcedure: Type of Neuraxial: Epidural Epidural Description: 1st attempt Sterility Prep gloves, cap, drape, hand hygiene and mask Sedation Level no sedation Patient Position: sitting Prep: Betadine and patient draped Monitoring: heart rate, continuous pulse ox, heart rate / toco and NIBP Location: lumbar (1-5) Lumbar: L4-L5 Approach: midline Technique: GABRIELA air and catheter Guidance with: landmark technique}Epidural/Spinal [place] and/or Catheter: Epidural/Spinal Kit: Alexander Needle Type: Tuohy Needle Gauge: 17 G Needle Length: 3.5 in (8.89 cm) Needle Insertion Depth: 5 Catheter Type: multiport Catheter Size: 19 G Catheter at Skin Depth: 12 Number of Attempts: 3 Test Dose: lidocaine 1.5% with epinephrine 1-to-200,000 and negative Dose: 3 cc and 5 cc Catheter Securement Method: surgical tape and TegadermAssessment: Sensory Level: above T10 Block Outcome: no apparent complications Procedure Assessment: patient tolerated procedure well with no complicationsNotes: PANELBOARD TANK PUMPER attempted twice unsuccessful; MDA x 1 attempt successful Smooth and atraumatic, (+) Local, (+) STF 66951-1Fujbgqxoerqiwc procedure rwvvRN8659-66-30J09:50:02Anesthesiolo gy procedure noteTXT1.2.840.244810.1.13.104.2.7.2. 394253|[id number] for patient vbkj84719-7Feketivg operation noteLNNACR-NURSE NEW VEHICLE SALES CONSULTANT,CERTIFIED REGISTERED NURSE ANESTHETISTNACR-NURSE NEW VEHICLE SALES CONSULTANT,CERTIFIED REGISTERED NURSE ANESTHETIST95 [address] [id number] SCWDWILLXOGMZKXIDXDDU6790-84-35X49:50 :021.2.840.379754.1.72.3.15|1.2.840.1 [id number] 3 NACR-NURSE NEW VEHICLE SALES CONSULTANT,CERTIF IED REGISTERED NURSE NEW VEHICLE SALES CONSULTANT [facility] Progress Notes Date/Time Note Provider Source 2023-03-15 15:00:00 [id number]:00:00F ormatting of this note is different from the original.ROUTINE VISIT03/15/2023 3:22 PMSUBJECTIVENicomariela Rodas is a 32 year old at 38w2d who presents for routine visit. She has no complaints today: loss of fluid, vaginal bleeding, and signs or symptoms of pre-eclampsia. Good movement. Occasional contractions.OBJECTIVEBP 118/72 (BP Location: Left arm, Patient Position: Sitting, BP CUFF SIZE: Adult Medium) | Pulse 86 | Temp 36.8 ?C (98.2 ?F) (Oral) | Resp 18 | Ht 4' 11" (1.499 m) | Wt 179 lb 3.2 oz (81.3 kg) | LMP 06/20/2022 | SpO2 99% | BMI 36.19 kg/m? Physical Exam:Gen: A&Ox3, NADCV: RRR, Pulm: No labored breathingAbd: Soft, gravid, NTTP, ND, no rebound or guardingExt: No calf tendernessGU: deferredASSESSMENT: Vladislav Rodas is a 32 year old at 38w2d who presents for routine visit. Patient Active Problem List Diagnosis Other and unspecified diseases of the oral soft tissues Insufficient care in third trimester Obesity in , antepartum Transportation insecurity Heartburn during , antepartum Acute lower respiratory infection Need for Tdap vaccination High-risk in third trimester Chlamydia trachomatis infection of lower genitourinary sites Obesity (BMI 30-39.9) PLAN1. High-risk in third trimester2. 38 weeks gestation of - POCT URINALYSIS W/O SPECIFIC GRAVITY+GBS bacteruria, will need abx in labor.-- labor warnings reviewed--All questions answered 51923-4Igtxfjfi envaKE0173-32-30T15:23:42Progress noteTXT1.2.840.468163.1.13.104.2.7.2.51236 9|[id number] for patient careUT[address] WqncQeaoveniuOcqiaakahLUXB3867462094IEOJSI ENOCBEWBRXVOKVGU0839-29-71P41:23:421.2.840 .415860.1.72.3.15|1.2.840.330464.1.13.104. 2.7.2.727879_[id number] [facility] Notes Date/Time Note Provider Source 2023-09-29 12:18:05 3428-14-23R80:18:05 PT D/C home. GCS15, VS stable. Given D/C paperwork. Pt ambulatory at time of discharge. Pt educated on med usage, follow up care, s/s worsening condition, need for hydration. Pt verbalized understanding.Pt ambulated from ED in NAD. 07966-6Bshsdzavy department RgmiRW7130-46-77D99:18:46[facility] NoteTXT1.2.840.734370.1.13.104.2.7.2.7 16345|[id number] for patient skuf67768-2FaeqWNPJRABWAEHPkuhwgiru C-CDA narrative text[address] Bc[id number] PWZDMSIZHGJRMCKMJLCN5155-37-23N36:18:4 61.2.840.181724.1.72.3.15|1.2.840.1143 50.1.13.104.2.7.2.727879_[id number] [facility] 2023-09-29 11:05:56 0221-03-66C71:05:56 Pt presents with headache, congestion, runny nose, and dry cough. Pt had son on 24 of March and then had birthcontrol inserted in her arm. Pt states "I know this sounds weird but I feel movement in my abdomen but I took home test and it was negative but I'm worried I might be because I was told not to have sex immediately after having BC inserted in my arm and I did"No meds taken PTALMP: Sept 98321-5Rgyipkzjj department Triage rwezIO1420-85-48B13:11:56[facility] Triage noteTXT1.2.840.243674.1.13.104.2.7.2.7 97678|[id number] for patient yfnp49439-4Yqvpcjfcz department NoteLNNARRATIVEFormatted C-CDA narrative [id number] E Linkes RNUT[address] Eueb[id number] UOEJCOCWDPIERTUOHNOT5482-57-31R66:11:5 61.2.840.410813.1.72.3.15|1.2.840.1143 50.1.13.104.2.7.2.727879_[id number] Nikki Morillo RN [facility] 2023-09-29 10:46:00 0721-08-25Z80:46:00 [facility] Emergency Department NoteDemographicsPatient Name: Vladislav Richmondte of : 1990 33 year oldTreatment Room: [place] [address]Medical Record Number: [id number] Care Physician[facility] CarePatient Escorted by: Self [9]Mode of Arrival: Personal means [1]EMS Treatment Prior to ED Arrival:ED EventsDate/Time Event User Wozcslsv40/08/24 1110 Medical Screening Begins HOSSEIN GARCIA MD --09/29/23 1110 First Provider Evaluation HOSSEIN GARCIA MD --Chief complaintChief ComplaintPatient presents withCoughCongestionED Triage Nikki Martinez RN 09/29/2023 11:11Pt presents with headache, congestion, runny nose, and dry cough. Pt had son on 24 of March and then had birthcontrol inserted in her arm. Pt states "I know this sounds weird but I feel movement in my abdomen but I took home test and it was negative but I'm worried I might be because I was told not to have sex immediately after having BC inserted in my arm and I did"No meds taken PTALMP: SeptOriginal note by Nikki Morillo RN at 09/29/2023 11:09Chief ComplaintPatient presents withCoughCongestionHistory of present cuzpfarDZJ71 yo woman comes to the ED complaining of URI symptoms for the last few days. She also reports being concerned with the possibility of . Denies any chronic medical problems or medications.BP 133/81 | Pulse 97 | Temp 36.7 ?C (98.1 ?F) | Resp 16 | Ht 1.499 m (4' 11") | Wt 87.1 kg (192 lb) | SpO2 99% | BMI 38.78 kg/m?Past Medical and Social HistoryPast Medical History:Diagnosis DateAsthmaHeart murmurSeasonal allergiesTetanus received in last 5 years: YesSocial HistoryTobacco UseSmoking status: FormerPacks/day: .25Types: CigarettesQuit date: 08/22/2014Years since quittin.1Smokeless tobacco: NeverVaping UseVaping Use: Never usedSubstance Use TopicsAlcohol use: Not CurrentlyDrug use: Not CurrentlyComment: Surgical HistoryPast Surgical History:Procedure Laterality DateSURGICAL EXT TOOTH COMP PATY IMPACTION-D7240 06/08/2017SURGICAL EXTRACTION - ERUPTED TEETH 06/08/2017TOOTH EXTRACTION N/A 06/08/2017Surgeon: Suresh Bosch; [facility]icationsMedications - No data to displayAllergiesNo Known AllergiesReview of SystemsReview of SystemsConstitutional: Negative.HENT: Positive for congestion and rhinorrhea.Eyes: Negative.Respiratory: Positive for cough.Cardiovascular: Negative.Gastrointestinal: Negative.Genitourinary: Negative.Musculoskeletal: Negative.Skin: Negative.Neurological: Negative.Psychiatric/Behavioral: Negative.Endocrine: Endocrine negativePhysical ExamBP 133/81 | Pulse 97 | Temp 36.7 ?C (98.1 ?F) | Resp 16 | Ht 1.499 m (4' 11") | Wt 87.1 kg (192 lb) | SpO2 99% | BMI 38.78 kg/m?Physical ExamVitals and nursing note reviewed.Constitutional:General: She is not in acute distress.Appearance: She is well-developed and normal weight. She is not ill-appearing.HENT:Head: Normocephalic and atraumatic.Right Ear: External ear normal.Left Ear: External ear normal.Nose: Congestion and rhinorrhea present.Mouth/Throat:Pharynx: No oropharyngeal exudate or posterior oropharyngeal erythema.Eyes:General:Right eye: No discharge.Left eye: No discharge.Conjunctiva/sclera: Conjunctivae normal.Pupils: Pupils are equal, round, and reactive to light.Cardiovascular:Rate and Rhythm: Normal rate and regular rhythm.Heart sounds: Normal heart sounds. No murmur heard.No friction rub.Pulmonary:Effort: Pulmonary effort is normal. No respiratory distress.Breath sounds: Normal breath sounds. No stridor. No wheezing or rhonchi.Abdominal:General: Bowel sounds are normal. There is no distension.Palpations: Abdomen is soft. There is no mass.Tenderness: There is no abdominal tenderness.Hernia: No hernia is present.Musculoskeletal:General: No swelling, tenderness, deformity or signs of injury. Normal range of motion.Cervical back: Normal range of motion and neck supple. No rigidity or tenderness.Skin:General: Skin is warm.Capillary Refill: Capillary refill takes less than 2 seconds.Coloration: Skin is not jaundiced or pale.Findings: No bruising or erythema.Neurological:General: No focal deficit present.Mental Status: She is alert and oriented to person, place, and time.Cranial Nerves: No cranial nerve deficit.Sensory: No sensory deficit.Motor: No weakness.Coordination: Coordination normal.Psychiatric:Mood and Affect: Mood normal.Behavior: Behavior normal.Thought Content: Thought content normal.Judgment: Judgment normal.Labs and StudiesLab ResultsPOCT TEST - NormalResult Value Ref RangePOCT PREG NegativeOn board controls acceptable with C Line YesPOCT PREG LOT # [id number] PREG TEST DATE 11/27/2024No orders to displayOrders and TreatmentsOrders Placed This EncounterProceduresPOCT TESTNo orders of the defined types were placed in this encounter.Patient's MedicationsSTART taking these medicationsNo medications on fileCONTINUE taking these medications which have NOT CHANGEDALBUTEROL 90 MCG/ACTUATION INHALER Inhale 2 Puffs every 6 (six) hours as needed for Wheezing, Shortness of Breath, Bronchospasm or Chest tightness.FERROUS SULFATE 325 MG (65 MG IRON) TABLET Take 1 tablet by mouth in the morning and 1 tablet in the evening.METHYLPREDNISOLONE (MEDROL, ZULAY,) 4 MG TABLETS Take by mouth SEE-INSTRUCTIONS. follow package directionsSTART taking Modified Medications as PrescribedNo medications on fileSTOP taking these medicationsNo medications on fileProceduresProceduresEvidence CareMDM & NotesPatient was evaluated for an emergency medical condition related to Cough and CongestionHistory and/or review of systems is limited by:History limited: None.Medical Decision Ygbdsl22 yo woman comes to the ED complaining of URI symptoms for the last few days. She also reports being concerned with the possibility of . Denies any chronic medical problems or medications.BP 133/81 | Pulse 97 | Temp 36.7 ?C (98.1 ?F) | Resp 16 | Ht 1.499 m (4' 11") | Wt 87.1 kg (192 lb) | SpO2 99% | BMI 38.78 kg/m?DDx include but not limited to: URI, r/o pregnancyPlan: 33 yo woman comes to the ED complaining of URI symptoms for the last few days. She also reports being concerned with the possibility of . test negative, advised to continue OTC medications for URI, f/u with PCP and return to the ED if worsening of symptoms.Problems Addressed:Upper respiratory tract infection, unspecified type: complicated acute illness or injuryAmount and/or Complexity of Data ReviewedLabs: ordered. Decision-making details documented in ED Course.Details: Neg pregnancyRiskOTC drugs.Diagnosis/Impression as of 09/29/23 1144Upper respiratory tract infection, unspecified typeCase discussed with:Barriers & Social Determinants of Healthcare: noneLimitations to patient care and compliance: none.History, physical exam findings, results of visit, differential diagnosis, medication regimens and plan of future care have been considered. Additional MDM may be found in the ED course. Differential diagnosis considered and final disposition made based on information gathered during evaluation and may not be completely ruled out or specifically listed. Vital signs were rechecked before final disposition and determined to be stable.UqfaiwhkpQYL-23-LB3. Upper respiratory tract infection, unspecified type J06.9Disposition and ConditionED DispositionED DispositionDisch - HomeConditionStableComment--Patient's MedicationsSTART taking these medicationsNo medications on fileCONTINUE taking these medications which have NOT CHANGEDALBUTEROL 90 MCG/ACTUATION INHALER Inhale 2 Puffs every 6 (six) hours as needed for Wheezing, Shortness of Breath, Bronchospasm or Chest tightness.FERROUS SULFATE 325 MG (65 MG IRON) TABLET Take 1 tablet by mouth in the morning and 1 tablet in the evening.METHYLPREDNISOLONE (MEDROL, ZULAY,) 4 MG TABLETS Take by mouth SEE-INSTRUCTIONS. follow package directionsSTART taking Modified Medications as PrescribedNo medications on fileSTOP taking these medicationsNo medications on fileFuture AppointmentsToday Giulia Quintero FNP [facility], [facility] 1 month Mendoza Washburn MD [facility] AngletoDrLiazon Dictation Software is used frequently and may produce errors. Promptly contact for obvious discrepancies.Hossein Garcia MD, FACEP, FAAEMAssistant Professor of Emergency and Internal MedicineHealthAlliance Hospital: [facility]#[id number] Garcia MD09/29/23 1144 98282-3Mnceqgheu Emergency department NuihJZ4813-71-37D76:44:42Physician Emergency department NoteTXT1.2.840.633931.1.13.104.2.7.2.7 84366|[id number] for patient pkea06129-1Rkijgjhtw department NoteLNNARRATIVEFormatted C-CDA narrative text[id number] JIBKAONADMITYPHREDXX9558-45-11L63:44:4 21.2.840.810977.1.72.3.15|1.2.840.1143 50.1.13.104.2.7.2.727879_[id number] [facility] 2023-04-28 08:57:13 1222-94-12Q10:57:13 Patient states she will pick letter up at [facility]. Letter ready for fern picker. Camilo Mercer RN 04/28/2023 8:57 AM 10295-1Auyxbozxt encounter FbfqRV9433-60-11Y30:57:38Telephone encounter NoteTXT1.2.840.628386.1.13.104.2.7.2.7 92413|[id number] for patient [id number] Collins RN[id number] NOCNTUXTEALQGZZCHHBL1695-84-52A87:57:3 81.2.840.402894.1.72.3.15|1.2.840.1143 50.1.13.104.2.7.2.727879_[id number] Camilo Mercer RN [facility] 2023-04-27 17:14:23 7686-90-70I26:14:23 Vladislav Rodas is a 32 year old femalePatient calling to request a letter to be able to lift between 10 - 50 pounds for work so there are no limitations. Since she had a baby Aug 3rd 06827-0Idpyvtawl encounter YhjmMY2913-73-25K01:17:08Telephone encounter NoteTXT1.2.840.387375.1.13.104.2.7.2.7 89145|[id number] for patient [id number] Judy[id number] MVZRJVZTFKPGVJUCKQTZ4088-04-52P03:17:0 81.2.840.825031.1.72.3.15|1.2.840.1143 50.1.13.104.2.7.2.727879_[id number] Manolo Chung [facility] 2023-03-30 14:01:28 5635-27-12H28:01:28 Patient walked in to clinic requesting return to work letter. Dr. Washburn approved patient to return to work under the restriction of not lifting more than 20 pounds. Return to work letter handed to patient in clinic. Camilo Mercer RN 03/30/2023 2:07 PM 73232-5Xwhnntbon encounter KuzaOP3586-02-50D91:08:15Telephone encounter NoteTXT1.2.840.330230.1.13.104.2.7.2.7 80828|[id number] for patient [id number] Collins RNUT[id number] IUYZOGBGNUPQUNKOOWXO6510-18-22L35:08:1 51.2.840.041060.1.72.3.15|1.2.840.1143 50.1.13.104.2.7.2.727879_[id number] Camilo Mercer RN [facility] 2023-03-25 19:49:54 3668-45-22C46:49:54 Problem: Falls, Risk ofGoal: Absence of fallsOutcome: Progressing as expected Problem: PainGoal: Control of pain at or below patient's documented comfort goalOutcome: Progressing as expectedGoal: Reduction in pain sensationOutcome: Progressing as expected Problem: Discharge Planning - PostpartumGoal: Adequate for dischargeOutcome: Progressing as expectedGoal: Mood stableOutcome: Progressing as expected Problem: Bleeding, Risk ofGoal: Absence of impaired coagulation signs and symptomsOutcome: Progressing as expectedGoal: Absence of active bleedingOutcome: Progressing as expected Problem: Infection RiskGoal: Absence of infectionOutcome: Progressing as expected Problem: Coping - Ineffective, IndividualGoal: Effective copingOutcome: Progressing as expectedGoal: Knowledge of positive coping patternsOutcome: Progressing as expected Problem: Breast-feeding - IneffectiveGoal: Effective breast-feedingOutcome: Progressing as expected 64644-4Poko of care vhzeGD1658-69-32B64:50:01Plan of care noteTXT1.2.840.653255.1.13.104.2.7.2.7 52422|[id number] for patient [id number] Iddrisu RN[id number] AYNHUDUTMJQUHJTTGBNV7891-05-27L99:50:0 11.2.840.520260.1.72.3.15|1.2.840.1143 50.1.13.104.2.7.2.727879_[id number] Quinton Gonzalez RN [facility] 2023-03-25 18:42:30 2077-23-21H06:42:30 Problem: Falls, Risk ofGoal: Absence of fallsOutcome: Progressing as expected Problem: PainGoal: Control of pain at or below patient's documented comfort goalOutcome: Progressing as expectedGoal: Reduction in pain sensationOutcome: Progressing as expected Problem: Discharge Planning - PostpartumGoal: Adequate for dischargeOutcome: Progressing as expectedGoal: Mood stableOutcome: Progressing as expected Problem: Bleeding, Risk ofGoal: Absence of impaired coagulation signs and symptomsOutcome: Progressing as expectedGoal: Absence of active bleedingOutcome: Progressing as expected Problem: Infection RiskGoal: Absence of infectionOutcome: Progressing as expected Problem: Coping - Ineffective, IndividualGoal: Effective copingOutcome: Progressing as expectedGoal: Knowledge of positive coping patternsOutcome: Progressing as expected Problem: Breast-feeding - IneffectiveGoal: Effective breast-feedingOutcome: Progressing as expected 57167-4Qivd of care hyyoXI9355-55-08V56:42:36Plan of care noteTXT1.2.840.893792.1.13.104.2.7.2.7 11719|[id number] for patient [id number] L Blaha RNUT[address] Fw[id number] YXWBZSRQWRUTRPACKBCO3915-51-31E88:42:3 61.2.840.035252.1.72.3.15|1.2.840.1143 50.1.13.104.2.7.2.727879_[id number] Supriya Peña RN [facility] 2023-03-25 01:45:00 3585-66-75A05:45:00Summary: initial consult This note was copied from a baby's chart. Evaluation Situation Initial visit Background Baby Boy is 1 day old, born weighing 3410g, and has lost -2.35 of weight.Gestational Age: 39w4d at FEEDING STATUSFormula supplementation MATERNAL STATUS Assessment, Recommendations, Education Visited mom to offer assistance with . Mom states she has tried to latch but was unable to. Mom states she is currently trying to decide if she really wants to breastfeed. I discussed with mom the benefits of for mom and baby. I encouraged mom to request assistance at the next feeding for assistance with latching infant to the breast. Mom verbalized understanding.Mom instructed on how to contact Paper Inspector for assistance with feedings or to answer questions while in the hospital. Mom verbalized understanding.YENNY Wayne, RN, IBCLC 50643-5Vdkmzlrjtv KuxuEN3362-24-99T53:11:41Obstetrics NoteTXT1.2.840.895750.1.13.104.2.7.2.7 66252|[id number] for patient [id number] K Randolph RN[address] CndkFxynfhbmlKtenofeaxYTZG1613462333VT ASHFRUOGVTSNEVKNDDTD7744-06-92J33:11:4 11.2.840.110388.1.72.3.15|1.2.840.1143 50.1.13.104.2.7.2.727879_[id number] Attila Richards RN [facility] 2023-03-25 00:00:36 7774-33-00H98:00:36 Problem: Intrapartum process (including labor pain)Goal: Reduction in pain sensation03/24/20232358 by Quinton Gonzalez RNOutcome: Progressing as expected03/24/20232357 by Quinton Gonzalez RNOutcome: Progressing as expected Problem: Falls, Risk ofGoal: Absence of falls03/24/20232358 by Quinton Gonzalez RNOutcome: Progressing as expected03/24/20232357 by Quinton Gonzalez RNOutcome: Progressing as expected Problem: PainGoal: Control of pain at or below patient's documented comfort goal03/24/20232358 by Quinton Gonzalez RNOutcome: Progressing as expected03/24/20232357 by Quinton Gonzalez RNOutcome: Progressing as expectedGoal: Reduction in pain sensation03/24/20232358 by Quinton Gonzalez RNOutcome: Progressing as expected03/24/20232357 by Quinton Gonzalez RNOutcome: Progressing as expected Problem: Discharge Planning - PostpartumGoal: Adequate for discharge03/24/20232358 by Quinton Gonzalez RNOutcome: Progressing as expected03/24/20232357 by Quinton Gonzalez RNOutcome: Progressing as expectedGoal: Mood stable03/24/20232358 by Quinton Gonzalez RNOutcome: Progressing as expected03/24/20232357 by Quinton Gonzalez RNOutcome: Progressing as expected 38963-3Qvup of care oalhIB9976-25-65A96:00:39Plan of care noteTXT1.2.840.416202.1.13.104.2.7.2.7 20244|[id number] for patient ebly04727-3FoxfFHZLJFKKJD[id number] QMMKKDTNOUFVWLLMVUGF8007-17-66R46:00:3 91.2.840.227084.1.72.3.15|1.2.840.1143 50.1.13.104.2.7.2.727879_[id number] [facility] 2023-03-24 23:59:12 0263-56-34C41:59:12 Problem: Intrapartum process (including labor pain)Goal: Adequate to move to next level of careOutcome: Progressing as expectedGoal: Reduction in pain sensationOutcome: Progressing as expected Problem: Falls, Risk ofGoal: Absence of fallsOutcome: Progressing as expected Problem: PainGoal: Control of pain at or below patient's documented comfort goalOutcome: Progressing as expectedGoal: Reduction in pain sensationOutcome: Progressing as expected Problem: Discharge Planning - PostpartumGoal: Adequate for dischargeOutcome: Progressing as expectedGoal: Mood stableOutcome: Progressing as expected 06902-3Spcf of care dudfXN9377-09-18K33:59:25Plan of care noteTXT1.2.840.515856.1.13.104.2.7.2.7 98814|[id number] for patient inpd47112-9XjleTQNNXXOYEA[id number] OQRHMDWDCBMPWSNRMFBO1312-21-84U28:59:2 51.2.840.696055.1.72.3.15|1.2.840.1143 50.1.13.104.2.7.2.727879_[id number] [facility] 2023-03-24 21:36:30 3685-82-53N82:36:30 Patient: Vladislav Rodas Procedure Summary Date: 03/24/23 Room / Location: Anesthesia Start: 844 Anesthesia Stop: 2135 Procedure: CENTRAL NEURAXIAL BLOCK Diagnosis: Scheduled Providers: Responsible Provider: Beckie Mace MD Anesthesia Type: Epidural ASA Status: 3 Anesthesia Type: No value filed.Last vitalsBP Temp Pulse Resp SpO2 There were no known notable events for this encounter.Anesthesia Post EvaluationPatient location during evaluation: bedsidePatient participation: complete - patient participatedLevel of consciousness: awake and alertPain management: satisfactory to patientAirway patency: patentCardiovascular status: acceptable and blood pressure returned to baselineRespiratory status: acceptableHydration status: acceptableComments: Anesthesia SULEMA Post Operative Faculty NoteDate of service: 03/24/2023atient is s/p labor epidural placement and removal. Patient examined, patient awake. Patient participation in post anesthesia evaluation: Block not fully resolved, as expected. Patient participated otherwise. Patient advised about fall precautions.Vital Signs: BP 134/78 | Pulse 88 | Temp 37.1 ?C (98.7 ?F) | Resp 20 | Ht 1.499 m (4' 11") | Wt 82.7 kg (182 lb 6.4 oz) | LMP 06/20/2022 | SpO2 100% | BMI 36.84 kg/m? Pain: Scale used: 0 - 10RatinNausea and vomiting: Not present.Post operative/post procedure hydration status: Euvolemic.Post-operative course: Block resolving appropriately, and patient advised about fall precautions as noted above.Complications: No apparent complicationsStacesofía Mace MD 03/24/2023 21:36 76319-1Jlugjnaycmyxjy Postoperative evaluation and management ykmuZB5456-74-16B23:36:42Anesthesiolog y Postoperative evaluation and management noteTXT1.2.840.071924.1.13.104.2.7.2.7 92777|[id number] for patient rhuu87996-5Sjpmcynu operation noteLNAN-ANESTHESIOLOGY ANESTHESIOLOGISTAN-ANESTHESIOLOGY ANESTHESIOLOGIST[address] Zj[id number] JDGWDOHXCSAUZJXEYFVT2995-94-48W12:36:4 21.2.840.753011.1.72.3.15|1.2.840.1143 50.1.13.104.2.7.2.727879_[id number] AN-ANESTHESIOLOGY ANESTHESIOLOGIST [facility] 2023-03-24 20:52:03 2854-94-67N81:52:03 DELIVERY BY VACUUM-ASSISTED VAGINAL DELIVERYDelivery Date: 03/24/2023 Delivery Time: 8:26 PM Delivery Summary Vladislav Rodas is a 32 year old female G1 @ 39w4d The patient was admitted to the Labor & Delivery unit for induction at 39 weeks.Delivery Physician: Mendoza Washburn MDIntrapartum Anesthesia/Analgesia: EpiduralMode of Delivery: Delivery of ocampo fetus with cephalic presentationFetusMode of Delivery: Delivery of ocampo fetus with cephalic presentation Delivery: Vacuum DeliveryIndication for OVD: maternal fatigue and low stationEstimated weight: < 8 #Head station: lowAsynclitism: (not recorded) Application of Vacuum: Midposition - Kiwi vacuum cup was applied to head between the 2 fontanelle and over the midline suture. Digital exam was performed to confirm no involvement of cervix or vaginal sidewall within the vacuum. Then vacuum was generated from hand pump until ashley was in upper green zone. Traction: OA Delivery - Vacuum traction was initially applied downward for flexion motion followed by slow elevation for the head extension. The perineum was pushed with towel-draped hand as the head and mouth was delivered with maternal pushing effort. Upon delivery of the head, vacuum suction was released and moved from application. Number of tractions with contractions: 2Number of pop-offs: 0 Head Delivery:As the head crowned and distended the perineum, no episiotomy was performed. A blue towel was used to protect the perineum as the head crowned and delivered. The other hand was used to exert pressure on the occiput to control the delivery of the head. The perineum was pushed with a towel-draped hand as the head and mouth was delivered over the perineum. The head was allowed to rotate externally to achieve natural body posture. Examination of neck revealed nuchal cord, which was Umbilical cord not reducted - body delivered through umbilical cord. The shoulder was delivered by gentle downward traction applied to head and downward traction for the delivery of anterior shoulder. This was followed by upward traction with delivery of posterior shoulder and body. After the delivery of infant, bulb suction was performed from ororpharynx and nostril with removal of clear amniotic fluid. A normal, male was delivered.The umbilical cord was double clamped, cut and the infant was handed off the field to the circulating nursePlacentaPlacenta was delivered spontaneously while the abdominal hand lifted the uterus cephalad and other hand keeping the umbilical cord slightly taut. Laceration: First degree labial lacerationLaceration Repair: Minor - lacerations (perineum, sidewall, labial, vaginal floor and/or periurethral) were closed with continuous sutures. .Fourth StageFourth stage of labor was managed by uterine massage with abdominal hand and infusion 30 units of pitocin mixed with intravenous fluid.EBL: 300 Complications: NoneWeight: 3410 g 1 Minute 5 Minute 10 Minute Totals: 7 9 Mendoza Washburn MD 03/24/2023 8:53 PM 08246-4Svsef and delivery summary xoteLC0542-25-67F12:24:18Labor and delivery summary noteTXT1.2.840.572631.1.13.104.2.7.2.7 51155|[id number] for patient kbnd07183-8VkxsUWCPXOBDHI[address] Sm[id number] BBHYGQKHBNAQUZENQGLL0982-83-92H96:24:1 81.2.840.990208.1.72.3.15|1.2.840.1143 50.1.13.104.2.7.2.727879_[id number] [facility] 2023-03-24 08:54:28 6893-01-92P36:54:28 Name/ MRN / Age / Gender:Vladislav Rodas, [id number] year old female BMI:Estimated body mass index is 36.84 kg/m? as calculated from the following: Height as of an earlier encounter on 03/24/23: 1.499 m (4' 11"). Weight as of an earlier encounter on 03/24/23: 82.7 kg (182 lb 6.4 oz). Allergies:Patient has no known allergies. Last Vitals:BP Readings from Last 1 Encounters: 03/24/23 113/62 Pulse Readings from Last 1 Encounters: 03/24/23 82 SpO2 Readings from Last 1 Encounters: 03/24/23 100% Date of Surgery: 03/24/2023Surgeon: * No surgeons listed *Procedure: CENTRAL NEURAXIAL BLOCKOR Location: [facility] OUT OF OR - OR LOCATIONAnesthesia Preop Eval (physical exam) Anesthesia Preop: Uqgx-xi-CzipCBP Status VerifiedPONV Risk Factors: femaleAnesthesia HistoryAnesthesia History Negative per Chart ReviewPrevious Anesthetics/AirwaysCardiovascularNegat elle Cardiac ROSCardiovascular ROS Negative per Chart Review Pulmonary(+) Asthma Neuro/Musculoskeletal(+) Obesity GI/Hepatic(+) GERD HematologyNegative Hematology ROSComments: 03/22/23 15:27WBC x10^3: 10.90RBC x10^6: 4.63HGB: 11.9HCT: 35.9MCV: 77.5 (L)MCH: 25.7 (L)MCHC: 33.1RDW-SD: 39.8RDW-CV: 14.2PLT x10^3: 395 (H)(L): Data is abnormally low(H): Data is abnormally high RenalNegative Renal ROSRenal ROS Negative per Chart Review Skin(+) Current IV access and 18g Endo/Other Negative Endo/Other ROSEndocrine/other ROS Negative per Chart Review Other OB/GYNP: 0Gestational Age: 39wk4d PediatricPediatric Negative per Chart Review NeonatalNeonatal Negative per Chart Review Preoperative Medication InstructionsContinue taking all prescribed medications except:ELIA inhibitors, ARBs, diuretics, all oral diabetes medicationsAnticoagulant Therapy: Defer to surgeonsInsulin: Take 1/2 dose the night prior to surgery. Hold on DOS. Phentermine: Alert [facility] anesthesiologistSGLT2 Inhibitors: "gliflozins" to be held for 3 days prior to elective surgeries MAC Cases: Continue taking ELIA inhibitors and ARBs ASA ClassificationASA: 3ASA Comments: ROUTINE VISIT03/22/2023 2:11 PM?SUBJECTIVEVladislav Rodas is a 32 year old at 39w2d who presents for routine visit. She has irregular contractions; denies loss of fluid, vaginal bleeding, and signs or symptoms of pre-eclampsia. Good movement.?OBJECTIVEVitalsBP 115/73 (BP Location: Left arm, Patient Position: Sitting, BP CUFF SIZE: Adult Medium) | Pulse 84 | Temp 36.5 ?C (97.7 ?F) | Ht 4' 11" (1.499 m) | Wt 182 lb 6.4 oz (82.7 kg) | LMP 06/20/2022 | BMI 36.84 kg/m? ?FH: 38FHT: 148?Physical Exam:Gen: A&Ox3, NADCV: RRRPulm: CTABAbd: Soft, gravid, NTTP, no rebound or guardingExt: No calf tendernessGU: SVE loose /60/ballotable?Urine Dip: glucose negative, protein negative?ASSESSMENT: Vladislav Rodas is a 32 year old at 39w2d who presents for routine visit. ?PLAN?-Irregular contractions: SVE 60/ballotable. Cephalic confirmed on ultrasound today.-Desires induction at 39 weeks. Tentatively plan for 03/24/2023 unless clinically indicated otherwise Current Medications:No outpatient medications have been marked as taking for the 03/24/23 encounter (Anesthesia Event) with Stalin Blake MD. Previous Surgeries: Past Surgical History: Procedure Laterality Date SURGICAL EXT TOOTH COMP PATY IMPACTION-D7240 06/08/2017 SURGICAL EXTRACTION - ERUPTED TEETH 06/08/2017 TOOTH EXTRACTION N/A 06/08/2017 Surgeon: Suresh Bosch; Location: [facility] Anesthesia Physical ExamGeneralno apparent distress and alert and oriented x 3 Neuro/Psychneurological Nonfocal Dentalno notable dental hx Abdominal (+) gravid Airway Mallampati score:IITM distance:< 5 cmMouth opening:normal Extremity Normal extremity Pulmonarypulmonary exam normal Other Cardiovascularcardiovascular exam normalRhythm:RegularRate: Normal Anesthesia Plan ASA Status: 3 Plan discussed during pre-op evaluation: General, Epidural and SpinalAnesthetic plan on DOS: EpiduralAnesthesia plan discussed with: patient or representativePost-Operative Analgesia: routine analgesia & antiemeticsRecovery Plan: LDRAdditional comments: [id number] Preoperative evaluation and management ibdoLH8408-79-40H47:55:35Anesthesiolog y Preoperative evaluation and management noteTXT1.2.840.495786.1.13.104.2.7.2.7 70115|[id number] for patient xszq68627-3Gjwsucuw operation noteLNAN-ANESTHESIOLOGY ANESTHESIOLOGISTAN-ANESTHESIOLOGY ANESTHESIOLOGIST[id number] KMBTTGAXMBREAJYZGYDB2133-74-49M22:55:3 51.2.840.567451.1.72.3.15|1.2.840.1143 [id number] AN-ANESTHESIOLOGY ANESTHESIOLOGIST [facility] 2023-03-24 08:50:45 0224-89-08J03:50:45 Problem: Intrapartum process (including labor pain)Goal: Absence of or reduction of complications of laborOutcome: Progressing as expectedGoal: Able to cope with painOutcome: Progressing as expectedGoal: Adequate to move to next level of careOutcome: Progressing as expectedGoal: Reduction in pain sensationOutcome: Progressing as expected Problem: Falls, Risk ofGoal: Absence of fallsOutcome: Progressing as expected Problem: PainGoal: Control of pain at or below patient's documented comfort goalOutcome: Progressing as expectedGoal: Reduction in pain sensationOutcome: Progressing as expected Problem: Discharge Planning - PostpartumGoal: Adequate for dischargeOutcome: Progressing as expectedGoal: Mood stableOutcome: Progressing as expected 34832-5Kqqx of care zhkcDF1941-80-09B23:50:52Plan of care noteTXT1.2.840.852317.1.13.104.2.7.2.7 06667|[id number] for patient [id number] April Tomia Sabuero RNUT[id number] UBRGYEBUDWDICCVIVZQE3977-58-48C32:50:5 21.2.840.065156.1.72.3.15|1.2.840.1143 [id number] Daphney Finley RN [facility] 2023-03-24 07:01:16 4792-92-87M13:01:16 Name/ MRN / Age / Gender:Vladislav Rodas, [id number] year old female BMI:Estimated body mass index is 36.84 kg/m? as calculated from the following: Height as of this encounter: 1.499 m (4' 11"). Weight as of this encounter: 82.7 kg (182 lb 6.4 oz). Allergies:Patient has no known allergies. Last Vitals:BP Readings from Last 1 Encounters: 03/24/23 116/74 Pulse Readings from Last 1 Encounters: 03/24/23 77 SpO2 Readings from Last 1 Encounters: 03/24/23 100% Date of Surgery: 03/24/2023Surgeon: * No surgeons listed *Procedure: LABOR CONSULTOR Location: [facility] OUT OF OR - OR LOCATIONAnesthesia Preop Screen (no physical exam) Anesthesia Preop: Chart ReviewPONV Risk Factors: femaleAnesthesia HistoryAnesthesia History Negative per Chart ReviewPrevious Anesthetics/AirwaysCardiovascularCardi ovascular ROS Negative per Chart Review Pulmonary(+) Asthma Neuro/Musculoskeletal(+) Obesity GI/Hepatic(+) GERD HematologyComments: 03/22/23 15:27WBC x10^3: 10.90RBC x10^6: 4.63HGB: 11.9HCT: 35.9MCV: 77.5 (L)MCH: 25.7 (L)MCHC: 33.1RDW-SD: 39.8RDW-CV: 14.2PLT x10^3: 395 (H)(L): Data is abnormally low(H): Data is abnormally high RenalRenal ROS Negative per Chart Review Skin(+) Current IV access and 18g Endo/Other Endocrine/other ROS Negative per Chart Review Other OB/GYNP: 0Gestational Age: 39wk4d PediatricPediatric Negative per Chart Review NeonatalNeonatal Negative per Chart Review Preoperative Medication InstructionsContinue taking all prescribed medications except:ELIA inhibitors, ARBs, diuretics, all oral diabetes medicationsAnticoagulant Therapy: Defer to surgeonsInsulin: Take 1/2 dose the night prior to surgery. Hold on DOS. Phentermine: Alert [facility] anesthesiologistSGLT2 Inhibitors: "gliflozins" to be held for 3 days prior to elective surgeries MAC Cases: Continue taking ELIA inhibitors and ARBs ASA ClassificationASA: 3ASA Comments: ROUTINE VISIT03/22/2023 2:11 PM?SUBJECTIVENickandy Rodas is a 32 year old at 39w2d who presents for routine visit. She has irregular contractions; denies loss of fluid, vaginal bleeding, and signs or symptoms of pre-eclampsia. Good movement.?OBJECTIVEVitalsBP 115/73 (BP Location: Left arm, Patient Position: Sitting, BP CUFF SIZE: Adult Medium) | Pulse 84 | Temp 36.5 ?C (97.7 ?F) | Ht 4' 11" (1.499 m) | Wt 182 lb 6.4 oz (82.7 kg) | LMP 06/20/2022 | BMI 36.84 kg/m? ?FH: 38FHT: 148?Physical Exam:Gen: A&Ox3, NADCV: RRRPulm: CTABAbd: Soft, gravid, NTTP, no rebound or guardingExt: No calf tendernessGU: SVE loose /ballotable?Urine Dip: glucose negative, protein negative?ASSESSMENT: Vladislav Rodas is a 32 year old at 39w2d who presents for routine visit. ?PLAN?-Irregular contractions: SVE /ballotable. Cephalic confirmed on ultrasound today.-Desires induction at 39 weeks. Tentatively plan for 03/24/2023 unless clinically indicated otherwise Current Medications:No outpatient medications have been marked as taking for the 03/24/23 encounter (Hospital Encounter). Previous Surgeries: Past Surgical History: Procedure Laterality Date SURGICAL EXT TOOTH COMP PATY IMPACTION-D7240 06/08/2017 SURGICAL EXTRACTION - ERUPTED TEETH 06/08/2017 TOOTH EXTRACTION N/A 06/08/2017 Surgeon: Suresh Bosch; [facility] Physical ExamAnesthesia Plan ASA Status: 3 50256-1Xaohewrzpxprwt Preoperative evaluation and management ytjsVO4980-38-97T83:06:29Anesthesiolog y Preoperative evaluation and management noteTXT1.2.840.828074.1.13.104.2.7.2.7 53898|[id number] for patient akxb30596-6Qhfpntfp operation noteLNNACR-NURSE NEW VEHICLE SALES CONSULTANT,CERTIFIED REGISTERED NURSE ANESTHETISTNACR-NURSE NEW VEHICLE SALES CONSULTANT,CERTIFIED REGISTERED NURSE ANESTHETIST[id number] CZQJPPUYXTGEDVXMHAAF0637-02-02W57:06:2 91.2.840.894440.1.72.3.15|1.2.840.1143 [id number] NACR-NURSE NEW VEHICLE SALES CONSULTANT,CERTIFIED REGISTERED NURSE NEW VEHICLE SALES CONSULTANT [facility] 2023-03-24 03:41:27 2434-00-85V43:41:27 Problem: Intrapartum process (including labor pain)Goal: Absence of or reduction of complications of laborOutcome: Progressing as expectedGoal: Able to cope with painOutcome: Progressing as expectedGoal: Adequate to move to next level of careOutcome: Progressing as expectedGoal: Reduction in pain sensationOutcome: Progressing as expected Problem: Falls, Risk ofGoal: Absence of fallsOutcome: Progressing as expected Problem: PainGoal: Control of pain at or below patient's documented comfort goalOutcome: Progressing as expectedGoal: Reduction in pain sensationOutcome: Progressing as expected Problem: Discharge Planning - PostpartumGoal: Adequate for dischargeOutcome: Progressing as expectedGoal: Mood stableOutcome: Progressing as expected 73014-7Wrll of care jxznEH0978-90-28C24:41:32Plan of care noteTXT1.2.840.637995.1.13.104.2.7.2.7 15284|[id number] for patient vbwo89204-4WbuoXTBZWKZQEW[address] Rl[id number] LNHRDKKEMHOACXOILWRD2689-25-25Z79:41:3 21.2.840.657880.1.72.3.15|1.2.840.1143 [id number] [facility] 2023-03-22 15:00:00 1099-79-20L98:00:00 Images from the original note were not included.Spoke with BB, they will do a TS day of.Venipuncture collection performed by clean technique on the right anticubitus. Total of 1 attempts were made. Slight pressure and a bandage/dressing were applied to the site(s). The patient experienced no complications. The following specimens were processed according to instructions and sent to [facility] laboratories per lab order on 03/22/2023: LT BLUE SST 2 RED 1 LAV 1 PPT DK GREEN (LiHep) DK GREEN (SodH) FAN DK BLUE (K2) DK BLUE (S) ACD Blood Culture NIPT/NTD 20165-6Susjf EtkhCS6827-43-66W93:31:53Nurse NoteTXT1.2.840.217745.1.13.104.2.7.2.7 56792|[id number] for patient xkbk68139-8Vvgul Note[id number] TWQPAIFEWGHVOIHWTTJE8058-68-98L46:31:5 31.2.840.851257.1.72.3.15|1.2.840.1143 50.1.13.104.2.7.2.727879_[id number] [facility] 2023-03-22 14:15:00 4578-37-67Z63:15:00 Age: 32 year oldGA: 39w2d -Irregular contractions: SVE /ballotable. Cephalic confirmed on ultrasound today.-Desires induction at 39 weeks. Tentatively plan for 03/24/2023 unless clinically indicated otherwise- Daily kick counts and labor precautions given- follow-up in 5 to 6 weeks for visit 57718-2Lzacgnjt ornrYR3672-56-49N52:15:48Progress noteTXT1.2.840.443471.1.13.104.2.7.2.7 33435|[id number] for patient mlcp06585-2BgbzJTFYOXUWLV[id number] JAPVGJLTKZVQDFJBSAPT5141-81-74W92:15:4 81.2.840.120540.1.72.3.15|1.2.840.1143 [id number] [facility]
[2024-02-09] MEDS ORDERED: FAMOTIDINE 20 MG/2 ML VIAL IV ONE (16:41)
[2024-02-09] MEDS ORDERED: ONDANSETRON 4 MG/2 ML VIAL ONE (16:41)
[2024-02-09] MEDS ORDERED: NA CHLORIDE 0.9% 1,000 ML ONE (16:41)
[2024-02-09 16:59] LABS: Albumin 3.7 g/dL (3.4-5.0); Albumin/Globulin Ratio 0.9 (1.1-1.8); Anion Gap 6.1 mEq/L (5.0-15.0); Bilirubin Total 0.4 mg/dL (0.2-1.0); Globulin 4.3 g/dL (2.3-3.5); Potassium 4.1 mEq/L (3.5-5.1)
[2024-02-09 17:16] LABS: Absolute Lymphocytes (CBC) 1.4 K/uL (0.7-4.9); Absolute Monocytes 0.5 K/uL (0.1-1.3); Absolute Neutrophil 8.7 K/uL (1.8-8.0); Basophils % 0.3 % (0-1.3); Eosinophils % 0.1 % (0-4.4); Hematocrit 41.3 % (36.0-45.0); Hemoglobin 13.8 g/dL (12.0-15.0); Lymphocytes % 12.8 % (15.3-44.8); MCHC 33.4 g/dL (32.0-36.0); MCV 80.9 fL (80-100); MPV 7.6 fL (7.6-11.3); Monocytes % 4.6 % (3.3-12.3); Neutrophils % 82.2 % (41.7-73.7); Nucleated Red Blood Cells % 0.1 % (0-0); Platelets 363 thou/uL (152-406); RBC Red Blood Cell Count 5.11 M/uL (3.86-4.86)
[2024-02-09] MEDS ORDERED: MECLIZINE HCL 12.5 MG TAB ONE (17:41)
[2024-02-09 18:52] LABS: Specific Gravity 1.012 (1.005-1.030); Urine Bacteria <20 /HPF (<20); Urine Bilirubin NEGATIVE (Negative); Urine Blood Negative (Negative); Urine Clarity Extremely Turbid (Clear); Urine Color Light-Yellow (Yellow); Urine Culture Reflex Order REFLEXED; Urine Glucose NEGATIVE (Negative); Urine Ketones NEGATIVE (Negative); Urine Microscopic Reflex YN ORDER UMIC; Urine Mucus 2+ /HPF (None Seen); Urine Nitrite 2+ (Negative); Urine Protein NEGATIVE (Negative); Urine RBC <5 /HPF (None Seen); Urine Urobilinogen Normal (Normal); Urine Yeast (Budding) Trace /HPF (None Seen); Urine pH 6.5 (5.0-7.0)
[2024-02-09 18:54] LABS: Specific Gravity 1.012 (1.005-1.030)
--- NOTE | 2024-02-09 19:20 | RAD REPORT ---
EXAM DESCRIPTION: CTAbdomen Pelvis W Contrast - 02/09/2024 7:06 pm CLINICAL HISTORY: Abdominal pain. ABD PAIN COMPARISON: Abdomen Pelvis W Contrast dated 12/21/2021 TECHNIQUE: Biphasic CT imaging of the abdomen and pelvis was performed with 100 ml non-ionic IV cont rast. All CT scans are performed using dose optimization technique as appropriate and may include automated exposure control or mA/KV adjustment according to patient size. FINDINGS: The lung bases are clear. The liver, spleen, pancreas, adrenal glands and kidneys are within normal limits. No bowel obstruction, free air, free fluid or abscess. The appendix is normal. Small fat containing umbilical hernia. No evidence of significant lymphadenopathy. No suspicious bony findings. IMPRESSION: No acute intra-abdominal or pelvic finding.
--- NOTE | 2024-02-09 19:45 | ER ---
Nurse's Notes [facility] Name: Carlyn Rodas Age: 33 yrs Sex: Female : 1990 Arrival Date: 02/09/2024 Time: 15:18 Bed 3 Private MD: Diagnosis: Nausea with vomiting, unspecified;Upper abdominal pain, unspecified Presentation: 02/08 15:29 Chief complaint: Patient states: Vomiting today, unable to keep anything down. No nj1 diarrhea. Coronavirus screen: Vaccine status: Patient reports receiving the 2nd dose of the covid vaccine. Ebola Screen: Patient denies travel to an Ebola-affected area in the 21 days before illness onset. Initial Sepsis Screen: Does the patient meet any 2 criteria? HR > 90 bpm. No. Patient's initial sepsis screen is negative. Does the patient have a suspected source of infection? No. Patient's initial sepsis screen is negative. Risk Assessment: Do you want to hurt yourself or someone else? Patient reports no desire to harm self or others. Onset of symptoms was February 09, 2024. 15:29 Method Of Arrival: Wheelchair nj 15:29 Acuity: FERNANDO 3 nj1 Triage Assessment: 15:35 General: Appears in no apparent distress. comfortable, Behavior is calm, cooperative, nj1 appropriate for age. 15:35 Pain: Complains of pain in abdomen. GI: Reports nausea, vomiting. nj1 Historical: - Allergies: 15:34 No Known Allergies; nj1 - PMHx: 15:34 adhd; nj1 - Immunization history:: Client reports receiving the 2nd dose of the Covid vaccine. - Infectious Disease History:: Denies. - Social history:: Smoking status: Patient denies any tobacco usage or history of. Screenin:10 [facility] ED Fall Risk Assessment (Adult) History of falling in the last 3 months, ko1 including since admission No falls in past 3 months (0 pts) Confusion or Disorientation No (0 pts) Intoxicated or Sedated No (0 pts) Impaired Gait No (0 pts) Mobility Assist Device Used No (0 pt) Altered Elimination No (0 pt) Score/Fall Risk Level 0 - 2 = Low Risk Oriented to surroundings, Maintained a safe environment, Educated pt \T\ family on fall prevention, incl call for assistance when getting out of bed, Assessed \T\ reinforced patient's understanding of fall precautions, Provided non-skid footwear, Hourly rounding (assess needs \T\ fall precautionary measures) done. Abuse screen: Denies threats or abuse. Denies injuries from another. Nutritional screening: No deficits noted. Tuberculosis screening: No symptoms or risk factors identified. Assessment: 17:11 General: Appears in no apparent distress. Behavior is calm, cooperative, appropriate ko1 for age. Pain: Denies pain. Neuro: No deficits noted. Cardiovascular: No deficits noted. Respiratory: No deficits noted. GI: Abdomen is round Reports nausea, vomiting. : No deficits noted. EENT: No deficits noted. Derm: No deficits noted. Musculoskeletal: No deficits noted. 19:33 Reassessment: Patient and/or family updated on plan of care and expected duration. Pain tm6 level reassessed. Patient is alert, oriented x 3, equal unlabored respirations, skin warm/dry/pink. 20:02 Reassessment: Patient appears in no apparent distress at this time. Patient and/or jb4 family updated on plan of care and expected duration. Pain level reassessed. Patient is alert, oriented x 3, equal unlabored respirations, skin warm/dry/pink. Vital Signs: 15:29 BP 114 / 87; Pulse 96; Resp 18; Temp 97.7(O); Pulse Ox 99% on R/A; Weight 74.84 kg; nj1 Height 4 ft. 11 in. ; Pain 10/10; 17:10 BP 128 / 84; Pulse 72; Resp 16; Pulse Ox 98% ; ko1 19:32 BP 110 / 89; Pulse 78; Pulse Ox 98% on R/A; Pain 0/10; tm6 15:29 Body Mass Index 33.33 (74.84 kg, 149.86 cm) nj1 15:29 Pain Scale: Adult nj1 19:32 Pain Scale: Adult tm6 ED Course: 15:21 Patient arrived in ED. mr 15:25 Schuyler Torres PA is PHCP. cp 15:25 Derrick Chester MD is Attending Physician. cp 15:34 Triage completed. nj1 15:34 Arm band placed on left wrist. nj1 15:40 Attending Physician role handed off by Derrick Chester MD kathy 15:40 Schuyler Barajas MD is Attending Physician. [facility] 16:30 Inserted saline lock: 20 gauge in right antecubital area, using aseptic technique. nj1 Blood collected. 16:40 Amna Lombardi, RN is Primary Nurse. ko1 17:10 Patient has correct armband on for positive identification. Placed in gown. Bed in low ko1 position. Call light in reach. Side rails up X2. Provided Education on: labs, meds. Client placed on continuous cardiac and pulse oximetry monitoring. NIBP monitoring applied. computer forensics investigator on. Door closed. Noise minimized. Lights dimmed. Warm blanket given. Pillow given. 17:10 No provider procedures requiring assistance completed. ko1 17:35 Derrick Chester MD is Attending Physician. cp 18:31 Test, Urine Sent. ko1 18:31 Urinalysis w/ reflexes Sent. ko1 19:07 CT Abd/Pelvis - IV Contrast Only In Process Unspecified. EDMS 20:02 IV discontinued, intact, bleeding controlled, No redness/swelling at site. Pressure jb4 dressing applied. Administered Medications: 16:47 Drug: NS 0.9% IV 1000 ml IV at 999 ml/hr Per protocol Route: IV; Rate: 999 ml/hr; Site: ko1 right antecubital; 16:47 Drug: Ondansetron IVP 4 mg IVP once; over 2 minutes Route: IVP; Site: right antecubital;ko1 17:05 Follow up: Response: No adverse reaction ko1 16:47 Drug: Famotidine IVP 20 mg IVP once; dilute with 10 mL 0.9% NaCl; give over 2 minutes ko1 Route: IVP; Site: right antecubital; 17:05 Follow up: Response: No adverse reaction ko1 17:51 Drug: Meclizine PO 25 mg PO once Route: PO; ko1 18:17 Follow up: Response: No adverse reaction ko1 Medication: 17:10 VIS not applicable for this client. ko1 Outcome: 19:45 Discharge ordered by . cp 20:02 Discharged to home ambulatory, jb4 20:02 Condition: stable 20:02 Discharge instructions given to patient, Instructed on discharge instructions, follow up and referral plans. medication usage, Demonstrated understanding of instructions, follow-up care, medications, Prescriptions given X 2, 20:02 Patient left the ED. jb4 Signatures: Dispatcher [employer] Schuyler Meraz MD MD cha Rivera, Frida, Reg Reg mr Schuyler Torres, Yordy Oneil cp, RN RN jb4 Amna Lombardi, RN RN ko1 Carla Kothari, RN RN nj1 Indu Cruz, RN RN tm6
--- NOTE | 2024-02-09 19:45 | EDPHYS ---
Physician Documentation [facility] Name: Carlyn Rodas Age: 33 yrs Sex: Female : 1990 Arrival Date: 02/09/2024 Time: 15:18 Bed 3 Private MD: ED Physician Derrick Chester HPI: 02/08 16:45 This 33 yrs old Female presents to ER via Wheelchair with complaints of cp Vomiting. 16:45 The patient presents to the emergency department with nausea, that is moderate, cp vomiting, that is continuous. Onset: The symptoms/episode began/occurred this morning. 16:45 Possible causes: unknown. cp 16:45 Associated signs and symptoms: Pertinent positives: abdominal pain, anorexia, Pertinent cp negatives: fever, GI bleeding, diarrhea. Severity of symptoms: in the emergency department the symptoms are unchanged despite home interventions. Historical: - Allergies: 15:34 No Known Allergies; nj1 - PMHx: 15:34 adhd; nj1 - Immunization history:: Client reports receiving the 2nd dose of the Covid vaccine. - Infectious Disease History:: Denies. - Social history:: Smoking status: Patient denies any tobacco usage or history of. ROS: 16:50 Abdomen/GI: Positive for abdominal pain, nausea and vomiting, anorexia, Negative for cp diarrhea, constipation, hematemesis, 16:50 Constitutional: Positive for poor PO intake, Negative for body aches, chills, fever, cp 16:50 Eyes: Negative for injury, pain, redness, and discharge, cp 16:50 ENT: Negative for drainage from ear(s), ear pain, sore throat, difficulty swallowing, difficulty handling secretions, 16:50 Cardiovascular: Negative for chest pain, edema, palpitations, 16:50 Respiratory: Negative for cough, shortness of breath, wheezing, 16:50 : Negative for urinary symptoms, hematuria, flank pain, vaginal bleeding, 16:50 Neuro: Negative for altered mental status, weakness, 16:50 All other systems are negative, Exam: 16:55 Constitutional: The patient appears in no acute distress, alert, awake, non-toxic, well cp developed, well nourished, uncomfortable, 16:55 Head/Face: Normocephalic, atraumatic. cp 16:55 Eyes: Periorbital structures: appear normal, Conjunctiva: normal, no exudate, no injection, Sclera: no appreciated abnormality, Lids and lashes: appear normal, bilaterally, 16:55 ENT: External ear(s): are unremarkable, Nose: is normal, Mouth: Lips: moist, Oral mucosa: Posterior pharynx: Airway: no evidence of obstruction, patent, Vital Signs: 15:29 BP 114 / 87; Pulse 96; Resp 18; Temp 97.7(O); Pulse Ox 99% on R/A; Weight 74.84 kg; nj1 Height 4 ft. 11 in. ; Pain 10/10; 17:10 BP 128 / 84; Pulse 72; Resp 16; Pulse Ox 98% ; ko1 19:32 BP 110 / 89; Pulse 78; Pulse Ox 98% on R/A; Pain 0/10; tm6 15:29 Body Mass Index 33.33 (74.84 kg, 149.86 cm) nj1 15:29 Pain Scale: Adult nj1 19:32 Pain Scale: Adult tm6 MDM: 15:41 Patient medically screened. 02/08 16:06 Order name: CBC with Diff; Complete Time: 17:33 02/08 17:33 Interpretation: Normal except: RBC 5.11; JAYA% 82.2; LYM% 12.8; NEUT A 8.7. 02/08 16:06 Order name: CMP; Complete Time: 17:33 02/08 19:30 Interpretation: Normal except: CL 108; GLUC 117; AST 12; GLOB 4.3; A/G 0.9. 02/08 16:06 Order name: Lipase; Complete Time: 17:33 02/08 19:30 Interpretation: Reviewed. 02/08 16:06 Order name: Test, Urine; Complete Time: 19:28 02/08 19:29 Interpretation: Reviewed. 02/08 16:06 Order name: Urinalysis w/ reflexes; Complete Time: 19:28 02/08 19:29 Interpretation: Normal except: [facility] Extremely Turbid; UNIT 2+; UESTR 75; UWBC 10-20; cp BYST Trace. 02/08 18:57 Order name: Urine Culture EDMS 02/08 17:36 Order name: CT Abd/Pelvis - IV Contrast Only; Complete Time: 19:28 02/08 19:29 Interpretation: Report reviewed. 02/08 16:06 Order name: IV Saline Lock; Complete Time: 16:40 cp 02/08 16:06 Order name: Labs collected and sent; Complete Time: 16:40 cp Administered Medications: 16:47 Drug: NS 0.9% IV 1000 ml IV at 999 ml/hr Per protocol Route: IV; Rate: 999 ml/hr; Site: ko1 right antecubital; 16:47 Drug: Ondansetron IVP 4 mg IVP once; over 2 minutes Route: IVP; Site: right antecubital;ko1 17:05 Follow up: Response: No adverse reaction ko1 16:47 Drug: Famotidine IVP 20 mg IVP once; dilute with 10 mL 0.9% NaCl; give over 2 minutes ko1 Route: IVP; Site: right antecubital; 17:05 Follow up: Response: No adverse reaction ko1 17:51 Drug: Meclizine PO 25 mg PO once Route: PO; ko1 18:17 Follow up: Response: No adverse reaction ko1 Disposition Summary: 02/09/24 19:45 Discharge Ordered Notes: Location: Home cp Problem: new cp Symptoms: have improved cp Condition: Stable cp Diagnosis - Nausea with vomiting, unspecified cp - Upper abdominal pain, unspecified cp Followup: cp - With: Private Physician - When: 2 - 3 days - Reason: Recheck today's complaints Discharge Instructions: - Discharge Summary Sheet cp - Abdominal Pain, Adult cp - Nausea and Vomiting, Adult cp Forms: - Medication Reconciliation Form cp - Antibiotic Education cp - Prescription Opioid Use cp - Patient Portal Instructions cp - Leadership Thank You Letter cp - Work release form jb4 Prescriptions: - Pepcid 20 mg Oral tablet - take 1 tablet ORAL route every 12 hours for 10 days; 30 tablet; Refills: 0, cp Product Selection Permitted - Zofran 4 mg Oral Tablet - take 1 tablet ORAL route every 12 hours As needed; 20 tablet; Refills: 0, cp Product Selection Permitted Signatures: Dispatcher [employer] EDUT Schuyler Torres PA PA cp Amna Lombardi, RN RN ko1 Carla Kothari RN RN nj1 Corrections: (The following items were deleted from the chart) 17:33 17:33 Normal except: RBC 5.11. cp cp
[2024-02-09 20:10] VITALS: O2SAT 98
[2024-02-09 20:25] VITALS: BP 110/89; TEMP 97.7
== END 2024-02-09 20:02 | disposition home or self-care (01) ==
LOC: ER 15:18
DX: R10.10 Upper abdominal pain, unspecified (principal); R11.2 Nausea with vomiting, unspecified
CPT/HCPCS: 87088; 85025; 81001; 87086; 36415; 81025; 83690; 80053; 74177; 96375; 96374; 99285; Q9967; J8597; J2405; J7030; 87077; 87186

== ENCOUNTER 2024-02-16 21:43 | Emergency (ER) | payer OTHER ==
--- OUTSIDE RECORDS SUMMARY | 2024-02-16 21:48 | XMS REPORT | Continuity of Care Document ---
Author Name Unknown Address [address] [facility]. [address] [place] [address] [facility] Address [address] [facility] [address] [place] [address] Care Team Providers Care Ged Instructor Name Role Phone Renetta SQUIRES, [facility] Primary Care Physician [phone] MENDOZA WASHBURN Attending Clinician Unavailable GIULIA QUINTERO Attending Clinician Unavailable HOSSEIN GARCIA Attending Clinician Unavailable Hossein Garcia MD Attending Clinician [phone] Giulia Hernandes Attending Clinician [phone] Mendoza Washburn MD Attending Clinician [phone] Doctor Unassigned, [place] Attending Clinician U Stalin Aly MD Attending Clinicia n Beckie Mace MD Attending Clinician [phone] Antelmo Irwin CRNA Attending Clinician [phone] Pob, [facility] Main Attending Clinician UnavailSADIA Aviles Attending Clinician SADIA Howell Attending Clinician Rochelle johns 2, [facility] Attending Clinician Unavailable Aminata ROSALES, Indira Attending Clinician Ultrasound, Ang-Mfm Attending Clinician Unavaila shahbaz Samayoa MD, Joiner Attending Clinician + BURGSO CHAIM, JOINER Attending Clinician Unaviri bindu LYNNKIRAINDIRA ARCOS Attending Clinician Unavaila ble VIVIANE URIARTE Attending Clinician Unavailable Viviane Uriarte MD Attending Clinician [phone] Kassidy Olvera Attending Clinician [phone] PATY SADIA Admitting Clinician MENDOZA Doherty Admitting Clinician Unavailable Mendoza Washburn MD Admitting Clinician [phone] VIVIANE URIARTE Admitting Clinician Unavailable Viviane Uriarte MD Admitting Clinician [phone] Payers Payer Name Policy Type Policy Number Effective Date Expirati on Date Source MANAGED MEDICAID GENERIC NON-CONTRACT [id number] 2023 00:00:00 [facility] [id number] 2022 00:00:00 2023 00:00:00 Problems Condition Name Condition Details Condition Category Status Onset Date Resolution Date Last Treatment Date Treating Clinician Comments Source 39 weeks gestation of 39 weeks gestation of Disease Active 8-03 00:00: 00 [facility] Liveborn infant, of [place] , born in hospital by vaginal delivery Liveborn , of [place] , born in hospital by vaginal delivery Disease Active 8-03 00:00: 00 [facility] Vacuum-ass isted vaginal delivery Vacuum-ass isted vaginal delivery Disease Active 8- 00:00: 00 [facility] Positive GBS test Positive GBS test Disease Active 8- 00:00: 00 [facility] Obesity (BMI 30-39.9) Obesity (BMI 30-39.9) Disease Active 7-25 00:00: 00 [facility] Chlamydia trachomati s infection of lower genitourin jose luis sites Chlamydia trachomati s infection of lower genitourin jose luis sites Disease Active 7-13 00:00: 00 [facility] High-risk in third trimester High-risk in third trimester Disease Active 2023-0 6-26 00:00: 00 [facility] uterine contractio ns in third trimester, antepartum uterine contractio ns in third trimester, antepartum Disease Active 6-14 00:00: 00 [facility] Heartburn during , antepartum Heartburn during , antepartum Disease Active 6 00:00: 00 [facility] Acute lower respirator y infection Acute lower respirator y infection Disease Active 6 00:00: 00 [facility] Need for Tdap vaccinatio n Need for Tdap vaccinatio n Disease Active 6 00:00: 00 [facility] Insufficie nt care in third trimester Insufficie nt care in third trimester Disease Active 2 00:00: 00 [facility] Obesity in , antepartum Obesity in , antepartum Disease Active 09-27 00:00: 00 [facility] Transporta tion insecurity Transporta tion insecurity Disease Active 2 00:00: 00 [facility] Other and unspecifie d diseases of the oral soft tissues Other and unspecifie d diseases of the oral soft tissues Disease Active 05-10 00:00: 00 Overview: Formattin g of this note might be different from the original. Added automatic ally from request for surgery [id number] [facility] Allergies, Adverse Reactions, Alerts Allergy Name Allergy Type Status Severity Reaction(s) Onset Date Inactive Date Treating Clinician Comments Source [place] - Intraven ous Propensi ty to adverse reaction to drug Active 02-25 00:00: 00 NO KNOWN ALLERGIE S Drug Class Active [facility] Social History Social Habit Start Date Stop Date Quantity Comments Source ASSERTION 2022-07-04 00:00:00 [facility] Gender identity [facility] Alcohol intake 2023-09-29 00:00:00 2023-09-29 00:00:00 Ex-drinker (finding) [facility] History of Social function 2023-08-30 00:00:00 2023-08-30 00:00:00 [facility] Exposure to SARS-CoV-2 (event) 2023-01-09 00:00:00 2023-01-19 15:07:00 Not sure [facility] Tobacco use and exposure 2022-09-27 00:00:00 2022-09-27 00:00:00 Smokeless tobacco non-user [facility] Cigarettes smoked current (pack per day) - Reported 2022-09-27 00:00:00 2022-09-27 00:00:00 [facility] History of tobacco use 2014-08-22 00:00:00 Cigarette Smoker [facility] Sex Assigned At 1990 00:00:00 1990 00:00:00 [facility] Smoking Status Start Date Stop Date Source Ex-smoker 2022-09-27 00:00:00 2022-09-27 00[facility]00[facility] Medications Ordered Medication Name Filled Medication Name Start Date Stop Date Current Medication? Ordering Clinician Indication Dosage Frequency Signature (SIG) Comments Components Source methylPREDN ISolone (MEDROL, ZULAY,) 4 mg tablets 09-16 00:00: 00 Yes [id number] Take by mouth SEE-INSTRU CTIONS. follow package directions [facility] amoxicillin 875 mg tablet 08-30 00:00: 00 09-10 05:59 :00 No [id number] 875mg Take 1 tablet by mouth in the morning and 1 tablet in the evening. Do all this for [address] [facility] etonogestre L (NEXPLANON) implant 68 mg 05-03 14:45: 00 05-03 14:04 :00 No [id number] 68mg [facility] rho(D) immune globulin (RHOGAM) syringe 300 mcg 03-25 06:03: 57 Yes 300ug 300 mcg, Intramuscu lar, ONCE, For 1 dose, Conditiona l, Routine [facility] witch [place] (TUCKS) 50 % topical pad 03-25 06:03: 38 Yes Topical, Q4HPRN, Starting on Tue03/25/23 at 0103, Until Discontinu ed, Routine, rectal/hem orrhoidal pain [facility] HYDROcodone -acetaminop hen (NORCO 5) 5-325 mg tablet 1 tablet 03-25 06:03: 38 Yes 1{tbl} 1 tablet, Oral, Q6HPRN, Starting on Tue03/25/23 at 0103, Until Discontinu ed, Routine, Pain (scale 7-10) [facility] ibuprofen (IBU) tablet 600 mg 03-25 06:03: 38 Yes 600mg 600 mg, Oral, Q6HPRN, Starting on Tue03/25/23 at 010, Until Discontinu ed, Routine, Pain (scale 4-6) [facility] acetaminoph en (TYLENOL) tablet 650 mg 03-25 06:03: 38 Yes 650mg 650 mg, Oral, Q6HPRN, Starting on Tue03/25/23 at 0103, Until Discontinu ed, Routine, Pain (scale 1-3) [facility] diphenhydrA MINE (BENADRYL) tablet 25 mg 03-25 06:03: 38 Yes 25mg 25 mg, Oral, Q6HPRN, Starting on Tue03/25/23 at 0103, Until Discontinu ed, Routine, Sleep, Itching [facility] ondansetron (ZOFRAN (PF)) injection 4 mg 03-25 06:03: 38 Yes 4mg 4 mg, Slow IV Push, Q8HPRN, Starting on Tue03/25/23 at 0103, Until Discontinu ed, Routine, Nausea and Vomiting (N/V) [facility] simethicone (GAS RELIEF (SIMETHICON E)) chewable tablet 160 mg 03-25 06:03: 38 Yes 160mg 160 mg, Oral, PC+HSPRN, Starting on Tue03/25/23 at 0103, Until Discontinu ed, Routine, Gas [facility] docusate (COLACE) capsule 200 mg 03-25 06:03: 38 Yes 200mg 200 mg, Oral, QDAILYPRN, Starting on Tue03/25/23 at 0103, Until Discontinu ed, Routine, Constipati on [facility] magnesium hydroxide (MILK OF MAGNESIA) 400 mg/5 mL suspension 30 mL 03-25 06:03: 38 Yes 30mL 30 mL, Oral, QDAILYPRN, Starting on Tue03/25/23 at 0103, Until Discontinu ed, Routine, Constipati on [facility] benzocaine- menthol (DERMOPLAST ) 20-0.5 % topical spray 03-25 06:03: 38 Yes Topical, PRN, Starting on Tue03/25/23 at 010, Until Discontinu ed, Routine, Perineum discomfort [facility] oxytocin (PITOCIN) 30 units in NS 500 mL IV infusion 03-25 01:46: 12 03-25 06:03 :55 No 300mL/h 300 mL/hr, IV Infusion, SEE-INSTRU CTIONS, Starting on Tue03/24/[address] at 300 mL/hr for 1 hr then 150 mL/hr for 1 hr. For post delivery uterotonic .
[facility] ferrous sulfate 325 mg (65 mg iron) tablet 03-25 00:00: 00 Yes [id number] 325mg Take 1 tablet by mouth in the morning and 1 tablet in the evening. [facility] vitamin w/FA tablet 03-25 00:00: 00 09-16 00:00 :00 No [id number] 1{tbl} Take 1 tablet by mouth in the morning. [facility] docusate 100 mg capsule 03-25 00:00: 00 05-03 00:00 :00 No [id number] 200mg Take 2 capsules by mouth once daily as needed for Constipati on. [facility] ibuprofen 600 mg tablet 03-25 00:00: 00 05-03 00:00 :00 No [id number] 600mg Take 1 tablet by mouth every 6 (six) hours as needed (Pain). Take with food or milk. [facility] fentaNYL-ro pivacaine 2 mcg/mL-0.1 % (PF) in NS 200 mL epidural infusion RTU 03-24 14:29: 00 03-25 02:36 :21 No Epidural, CONTINUOUS PRN, Starting on Chiara 03/24/23 at 0929, Until Discontinu ed, Routine, Intra-op [facility] lidocaine-e pinephrine (XYLOCAINE W/EPINEPHRI NE) 1.5 %-1:200,000 injection 03-24 14:27: 00 03-25 02:36 :21 No Intraderma l, ONCE INTRA PROCEDURE, Starting on Chiara 03/24/23 at 0927, Until Discontinu ed, Routine, Intra-op [facility] oxytocin (PITOCIN) 30 units in NS 500 mL IV infusion 03-24 12:33: 37 03-25 06:03 :55 No 2mU/min at 2-40 mL/hr, IV Infusion, TITRATE, Starting on Chiara 03/24/23 at 0733, Until Tue03/25/23 at 0103, SULEMAN [facility] misoprostol (CYTOTEC) quarter-tab let 25 mcg 03-24 06:45: 00 03-24 08:21 :00 No 25ug 25 mcg, Oral, ONCE, 1 dose, On Chiara 03/24/23 at 0145, Routine [facility] lactated ringers IV infusion 500 mL 03-24 06:44: 26 03-25 06:03 :55 No 500mL at 999 mL/hr, 500 mL, IV Infusion, PRN - SEE INSTRUCTIO NS, Starting on Chiara 03/24/23 at 0144, Until Tue03/25/23 at 0103, Routine [facility] ondansetron (ZOFRAN (PF)) injection 4 mg 03-24 06:44: 26 03-25 06:03 :55 No 4mg 4 mg, Slow IV Push, Q8HPRN, Nausea and Vomiting (N/V), Starting on Chiara 03/24/23 at 0144
Do ses of ondansetro n 16 mg and above need to be administer ed via IV piggyback. For Dose >=24mg ECG monitoring is advisable.
[facility] FENTanyl PF (SUBLIMAZE (PF)) injection 100 mcg 03-24 06:44: 26 03-25 06:03 :55 No 100ug 100 mcg, Slow IV Push, Q1HPRN, Starting on Tue03/24/23 at 0144, Until Tue03/25/23 at 0103, Routine, contractio n pain without an epidural and SVE < 8 cm and Cat I strip [facility] D5W-LR IV infusion 1,000 mL 03-24 06:44: 03-25 06:03 :55 No 1000mL at 1-125 mL/hr, IV Infusion, TITRATE, Starting on Tue03/24/23 at 0144, Until Tue03/25/23 at 0103, Routine [facility] azithromyci n 500 mg tablet 03-03 00:00: 00 03-04 04:59 :00 No [id number] 1000mg Take 2 tablets by mouth once now for [address] [facility] albuterol 90 mcg/actuati on inhaler 02-14 00:00: 00 Yes [id number] 2{puff} Inhale 2 Puffs every 6 (six) hours as needed for Wheezing, Shortness of Breath, Bronchospa sm or Chest tightness. [facility] terbutaline (BRETHINE) injection 0.25 mg 02-02 04:15: 00 02-02 04:11 :00 No .25mg 0.25 mg, Subcutaneo us, ONCE, 1 dose, On Tue02/01/23 at 2315, Routine [facility] NaCl 0.9% (NS) bolus infusion 1,000 mL 02-02 02:00: 00 02-02 01:36 :47 No 1000mL at 999 mL/hr, 1,000 mL, IV Infusion, ONCE, 1 dose, On Tue02/01/23 at 2100, STAT [facility] omeprazole 20 mg capsule 01-19 00:00: 00 03-25 00:00 :00 No [id number] 20mg Take 1 capsule by mouth in the morning. [facility] azithromyci n (ZITHROMAX Z-ZULAY) 250 mg tablet 01-19 00:00: 00 02-14 00:00 :00 No [id number] Take two tablets, orally, on day one; then take one tablet, orally, days two through five. [facility] guaiFENesin (MUCINEX) 600 mg tablet 01-19 00:00: 00 02-14 00:00 :00 No [id number] 600mg Take 1 tablet by mouth every 12 (twelve) hours. [facility] TAKE 1 TABLET BY MOUTH EVERY [...] hours as needed for Pain (scale 4-6). [facility] Immunizations Ordered Immunization Name Filled Immunization Name Date Status Comments Source TDAP 2023-01-19 00:00:00 Completed [facility] TDAP 2023-01-19 00:00:00 Completed [facility] TDAP 2023-01-19 00:00:00 Completed [facility] TDAP 2023-01-19 00:00:00 Completed [facility] TDAP 2023-01-19 00:00:00 Completed [facility] TDAP 2023-01-19 00:00:00 Completed [facility] TDAP 2023-01-19 00:00:00 Completed [facility] TDAP 2023-01-19 00:00:00 Completed [facility] TDAP 2023-01-19 00:00:00 Completed [facility] TDAP 2023-01-19 00:00:00 Completed [facility] TDAP 2023-01-19 00:00:00 Completed [facility] TDAP 2023-01-19 00:00:00 Completed [facility] TDAP 2023-01-19 00:00:00 Completed [facility] TDAP 2023-01-19 00:00:00 Completed [facility] TDAP 2023-01-19 00:00:00 Completed [facility] TDAP 2023-01-19 00:00:00 Completed [facility] TDAP 2023-01-19 00:00:00 Completed [facility] TDAP 2023-01-19 00:00:00 Completed [facility] TDAP 2023-01-19 00:00:00 Completed [facility] TDAP 2023-01-19 00:00:00 Completed [facility] TDAP 2023-01-19 00:00:00 Completed [facility] TDAP 2023-01-19 00:00:00 Completed [facility] TDAP 2023-01-19 00:00:00 Completed [facility] TDAP 2023-01-19 00:00:00 Completed [facility] TDAP 2023-01-19 00:00:00 Completed [facility] TDAP 2023-01-19 00:00:00 Completed [facility] TDAP 2023-01-19 00:00:00 Completed [facility] TDAP 2023-01-19 00:00:00 Completed [facility] TDAP 2023-01-19 00:00:00 Completed [facility] TDAP 2023-01-19 00:00:00 Completed [facility] TDAP 2023-01-19 00:00:00 Completed [facility] TDAP 2023-01-19 00:00:00 Completed [facility] Moderna COVID-19 Vaccine 2021-01-01 00:00:00 Completed Moderna COVID-19 Vaccine 2021-01-01 00:00:00 Completed Moderna COVID-19 Vaccine 2021-01-01 00:00:00 Completed Moderna COVID-19 Vaccine 2020-12-03 00:00:00 Completed Moderna COVID-19 Vaccine 2020-12-03 00:00:00 Completed Moderna COVID-19 Vaccine 2020-12-03 00:00:00 Completed TDAP Unknown Completed [facility] TDAP Unknown Completed [facility] TDAP Unknown Completed [facility] TDAP Unknown Completed [facility] TDAP Unknown Completed [facility] TDAP Unknown Completed [facility] Vital Signs Vital Name Observation Time Observation Value Comments S ource Systolic blood pressure 2023-09-29 17:09:00 133 mm[Hg] [facility] Diastolic blood pressure 2023-09-29 17:09:00 81 mm[Hg] [facility] Heart rate 2023-09-29 17:09:00 97 /min [facility] Body temperature 2023-09-29 17:09:00 36.72 Amairani [facility] Respiratory rate 2023-09-29 17:09:00 16 /min [facility] Body height 2023-09-29 17:09:00 149.9 cm [facility] Body weight 2023-09-29 17:09:00 87.091 kg [facility] BMI 2023-09-29 17:09:00 38.78 kg/m2 [facility] Oxygen saturation in Arterial blood by Pulse oximetry 2023-09-29 17:09:00 99 /min [facility] Systolic blood pressure 2023-09-16 20:47:00 108 mm[Hg] [facility] Diastolic blood pressure 2023-09-16 20:47:00 71 mm[Hg] [facility] Heart rate 2023-09-16 20:47:00 86 /min [facility] Body temperature 2023-09-16 20:47:00 36 Amairani [facility] Respiratory rate 2023-09-16 20:47:00 18 /min [facility] Body height 2023-09-16 20:47:00 149.9 cm [facility] Body weight 2023-09-16 20:47:00 87.907 kg [facility] BMI 2023-09-16 20:47:00 39.14 kg/m2 [facility] Oxygen saturation in Arterial blood by Pulse oximetry 2023-09-16 20:47:00 97 /min [facility] Systolic blood pressure 2023-08-30 19:48:00 126 mm[Hg] [facility] Diastolic blood pressure 2023-08-30 19:48:00 84 mm[Hg] [facility] Heart rate 2023-08-30 19:48:00 97 /min [facility] Body temperature 2023-08-30 19:48:00 36.61 Amairani [facility] Respiratory rate 2023-08-30 19:48:00 17 /min [facility] Body height 2023-08-30 19:48:00 149.9 cm [facility] Body weight 2023-08-30 19:48:00 87.454 kg [facility] BMI 2023-08-30 19:48:00 38.94 kg/m2 [facility] Oxygen saturation in Arterial blood by Pulse oximetry 2023-08-30 19:48:00 99 /min [facility] Systolic blood pressure 2023-05-03 13:54:00 108 mm[Hg] [facility] Diastolic blood pressure 2023-05-03 13:54:00 71 mm[Hg] [facility] Heart rate 2023-05-03 13:53:00 63 /min [facility] Body temperature 2023-05-03 13:53:00 36.61 Amairani [facility] Body height 2023-05-03 13:53:00 149.9 cm [facility] Body weight 2023-05-03 13:53:00 78.654 kg [facility] BMI 2023-05-03 13:53:00 35.02 kg/m2 [facility] Systolic blood pressure 2023-04-26 18:19:00 117 mm[Hg] [facility] Diastolic blood pressure 2023-04-26 18:19:00 77 mm[Hg] [facility] Heart rate 2023-04-26 18:19:00 94 /min [facility] Body temperature 2023-04-26 18:19:00 36.89 Amairani [facility] Body height 2023-04-26 18:19:00 149.9 cm [facility] Body weight 2023-04-26 18:19:00 78.472 kg [facility] BMI 2023-04-26 18:19:00 34.94 kg/m2 [facility] Systolic blood pressure 2023-03-26 00:38:00 120 mm[Hg] [facility] Diastolic blood pressure 2023-03-26 00:38:00 63 mm[Hg] [facility] Heart rate 2023-03-26 00:38:00 88 /min [facility] Body temperature 2023-03-26 00:38:00 36.22 Amairani [facility] Respiratory rate 2023-03-26 00:38:00 16 /min [facility] Oxygen saturation in Arterial blood by Pulse oximetry 2023-03-26 00:38:00 98 /min [facility] Body height 2023-03-24 07:51:00 149.9 cm [facility] Body weight 2023-03-24 07:51:00 82.736 kg [facility] BMI 2023-03-24 07:51:00 36.84 kg/m2 [facility] Systolic blood pressure 2023-03-22 19:11:00 115 mm[Hg] [facility] Diastolic blood pressure 2023-03-22 19:11:00 73 mm[Hg] [facility] Heart rate 2023-03-22 19:11:00 84 /min [facility] Body temperature 2023-03-22 19:11:00 36.5 Amairani [facility] Body height 2023-03-22 19:11:00 149.9 cm [facility] Body weight 2023-03-22 19:11:00 82.736 kg [facility] BMI 2023-03-22 19:11:00 36.84 kg/m2 [facility] Systolic blood pressure 2023-03-15 20:11:00 118 mm[Hg] [facility] Diastolic blood pressure 2023-03-15 20:11:00 72 mm[Hg] [facility] Heart rate 2023-03-15 20:11:00 86 /min [facility] Body temperature 2023-03-15 20:11:00 36.78 Amairani [facility] Respiratory rate 2023-03-15 20:11:00 18 /min [facility] Body height 2023-03-15 20:11:00 149.9 cm [facility] Body weight 2023-03-15 20:11:00 81.285 kg [facility] BMI 2023-03-15 20:11:00 36.19 kg/m2 [facility] Oxygen saturation in Arterial blood by Pulse oximetry 2023-03-15 20:11:00 99 /min [facility] Systolic blood pressure 2023-03-08 19:11:00 107 mm[Hg] [facility] Diastolic blood pressure 2023-03-08 19:11:00 68 mm[Hg] [facility] Heart rate 2023-03-08 19:11:00 91 /min [facility] Body temperature 2023-03-08 19:11:00 36.78 Amairani [facility] Respiratory rate 2023-03-08 19:11:00 18 /min [facility] Body height 2023-03-08 19:11:00 149.9 cm [facility] Body weight 2023-03-08 19:11:00 80.65 kg [facility] BMI 2023-03-08 19:11:00 35.91 kg/m2 [facility] Oxygen saturation in Arterial blood by Pulse oximetry 2023-03-08 19:11:00 99 /min [facility] Systolic blood pressure 2023-03-01 19:38:00 109 mm[Hg] [facility] Diastolic blood pressure 2023-03-01 19:38:00 68 mm[Hg] [facility] Heart rate 2023-03-01 19:37:00 91 /min [facility] Body temperature 2023-03-01 19:37:00 36.61 Amairani [facility] Respiratory rate 2023-03-01 19:37:00 20 /min [facility] Body height 2023-03-01 19:37:00 149.9 cm [facility] Body weight 2023-03-01 19:37:00 79.198 kg [facility] BMI 2023-03-01 19:37:00 35.26 kg/m2 [facility] Oxygen saturation in Arterial blood by Pulse oximetry 2023-03-01 19:37:00 97 /min [facility] Systolic blood pressure 2023-02-14 19:30:00 115 mm[Hg] [facility] Diastolic blood pressure 2023-02-14 19:30:00 70 mm[Hg] [facility] Heart rate 2023-02-14 19:30:00 91 /min [facility] Body temperature 2023-02-14 19:30:00 36.72 Amairani [facility] Respiratory rate 2023-02-14 19:30:00 18 /min [facility] Body height 2023-02-14 19:30:00 149.9 cm [facility] Body weight 2023-02-14 19:30:00 79.379 kg [facility] BMI 2023-02-14 19:30:00 35.35 kg/m2 [facility] Systolic blood pressure 2023-02-02 18:52:00 101 mm[Hg] [facility] Diastolic blood pressure 2023-02-02 18:52:00 65 mm[Hg] [facility] Heart rate 2023-02-02 18:52:00 102 /min [facility] Body temperature 2023-02-02 18:52:00 36.72 Amairani [facility] Respiratory rate 2023-02-02 18:52:00 16 /min [facility] Body height 2023-02-02 18:52:00 149.9 cm [facility] Body weight 2023-02-02 18:52:00 79.198 kg [facility] BMI 2023-02-02 18:52:00 35.26 kg/m2 [facility] Oxygen saturation in Arterial blood by Pulse oximetry 2023-02-02 18:52:00 97 /min [facility] Heart rate 2023-02-02 03:49:00 78 /[facility] in Arterial blood by Pulse oximetry 2023-02-02 03:49:00 100 /min [facility] Systolic blood pressure 2023-02-02 00:26:00 113 mm[Hg] [facility] Diastolic blood pressure 2023-02-02 00:26:00 59 mm[Hg] [facility] Body temperature 2023-02-02 00:26:00 36.78 Amairani [facility] Respiratory rate 2023-02-02 00:26:00 16 /min [facility] Body height 2023-02-02 00:26:00 149.9 cm [facility] Body weight 2023-02-02 00:26:00 77.928 kg [facility] BMI 2023-02-02 00:26:00 34.70 kg/m2 [facility] [place] Systolic blood pressure 2023-01-19 20:35:00 118 mm[Hg] [facility] Diastolic blood pressure 2023-01-19 20:35:00 74 mm[Hg] [facility] Heart rate 2023-01-19 20:35:00 86 /[facility] 2023-01-19 20:35:00 18 /min [facility] Body height 2023-01-19 20:35:00 149.9 cm [facility] weight 2023-01-19 20:35:00 77.111 kg Univ [facility] BMI 2023-01-19 20:35:00 34.34 kg/m2 Univ [facility] Heart rate 2023-01-16 22:45:00 92 /min Unive [facility] Oxygen saturation in Arterial blood by Pulse oximetry 2023-01-16 22:45:00 96 /min [facility] Systolic blood pressure 2023-01-16 22:00:00 105 mm[Hg] [facility] Diastolic blood pressure 2023-01-16 22:00:00 56 mm[Hg] [facility] Respiratory rate 2023-01-16 22:00:00 18 /min [facility] Body temperature 2023-01-16 21:15:00 37.56 Amairani [facility] Body height 2023-01-16 21:15:00 149.9 cm [facility] Body weight 2023-01-16 20:13:00 78.019 kg Univ [facility] BMI 2023-01-16 20:13:00 34.74 kg/m2 [facility] Systolic blood pressure 2022-09-27 20:07:00 96 mm[Hg] [facility] Diastolic blood pressure 2022-09-27 20:07:00 55 mm[Hg] [facility] Heart rate 2022-09-27 20:07:00 85 /min [facility] Body temperature 2022-09-27 20:07:00 36.89 Amairani [facility] Respiratory rate 2022-09-27 20:07:00 18 /min [facility] Body height 2022-09-27 20:07:00 149.9 cm [facility] Body weight 2022-09-27 20:07:00 78.926 kg [facility] BMI 2022-09-27 20:07:00 35.14 kg/m2 [facility] BP Systolic 2022-09-07 17:31:00 96 mm[Hg] [...] OF BENEFITS 2023-09-29 17:42:04 Duane r Unassigned, [place] [facility] POCT TEST 2023-09-29 17:32:00 Hossein Garcia [facility] CONSENT/REFUSAL FOR DIAGNOSIS AND TREATMENT 2023-09-29 16:48:59 Doctor Unassigned, [place] [facility] POCT MOLECULAR FLU 2023-08-30 19:57:00 Giulia Quintero [facility] POCT SARS-COV-2 ANTIGEN (BINAX NOW) 2023-08-30 00:00:00 Giulia Quintero [facility] CONSENT FOR CONTRACEPTION 2023-05-03 05:01:00 Doctor Unassigned, [place] [facility] POCT TEST 2023-05-03 00:00:00 Mendoza Washburn [facility] CBC WITH DIFF 2023-03-25 09:22:00 Mendoza Washburn [facility] CENTRAL NEURAXIAL BLOCK 2023-03-24 13:45:00 Gloria Irwin [facility] HB ABO GROUPING 2023-03-24 07:29:00 Mendoza Washburn [facility] RHO (D) IMMUNE GLOBULIN 2023-03-24 07:29:00 Mendoza Washburn [facility] HOSPITAL ADMISSION 2023-03-24 05:01:00 Doctor Un assigned, [place] [facility] PHYSICIAN ORDERS 2023-03-23 05:01:00 Doctor Unas signed, [place] [facility] ASSIGNMENT OF BENEFITS 2023-03-22 20:08:09 Docto r Unassigned, [place] [facility] POCT URINALYSIS W/O SPECIFIC GRAVITY 2023-03-22 00:00:00 Mendoza Washburn [facility] POCT URINALYSIS W/O SPECIFIC GRAVITY 2023-03-15 00:00:00 [facility]y [facility] POCT URINALYSIS W/O SPECIFIC GRAVITY 2023-03-08 00:00:00 Mendoza Washburn [facility] >14 WEEKS US LIMITED 2023-03-01 20:38:15 Mendoza Washburn [facility] POCT URINALYSIS W/O SPECIFIC GRAVITY 2023-03-01 00:00:00 Mendoza Washburn [facility] EXTERNAL PROVIDER RECORDS 2023-02-24 05:01:00 Doctor Unassigned, [place] [facility] AUTHORIZATION TO RELEASE PHI TO [facility] 2023-02-14 05:01:00 Doctor Unassigned, [place] [facility] POCT URINALYSIS W/O SPECIFIC GRAVITY 2023-02-14 00:00:00 Mendoza Washburn [facility] US PELVIS > 14 WEEKS 2023-02-02 03:42:09 AdumViviane [facility] CONSENT/REFUSAL FOR DIAGNOSIS AND TREATMENT 2023-02-01 23:58:19 Doctor Unassigned, [place] [facility] EXTERNAL PROVIDER RECORDS 2023-01-20 05:01:00 Doctor Unassigned, [place] [facility] TDAP VACCINE, >11 YRS, IM 2023-01-19 20:37:39 Indira Kelly [facility] POCT URINALYSIS W/O SPECIFIC GRAVITY 2023-01-19 00:00:00 Indira Kelly [facility] RAPID STREP SCREEN FOR GROUP A 2023-01-16 20:18:00 Kassidy Fowler [facility] RAPID INFLUENZA A/B 2023-01-16 20:18:00 Kassidy Fowler [facility] COVID-19 (ID NOW RAPID TESTING) 2023-01-16 20:18:00 Kassidy Fowler [facility] CONSENT/REFUSAL FOR DIAGNOSIS AND TREATMENT 2023-01-16 20:07:04 Doctor Unassigned, [place] [facility] AUTHORIZATION TO RELEASE PHI TO [facility] 2023-01-05 05:01:00 Doctor Unassigned, [place] [facility] FALL RISK ASSESSMENT 2022-10-20 06:01:00 Doctor Unassigned, [place] [facility] GC & CHLAMYDIA AMPLIFIED ASSAY 2022-09-27 23:00:00 Indira Kelly [facility] TRICHOMONAS AMPLIFIED ASSAY 2022-09-27 23:00:00 Indira Kelly [facility] ASSIGNMENT OF BENEFITS 2022-09-27 19:38:59 Docto r Unassigned, [place] [facility] POCT URINALYSIS W/O SPECIFIC GRAVITY 2022-09-27 00:00:00 Indira Kelly [facility] Plan of Care Planned Activity Planned Date Details Comments Source Goal Plan of Care Note [code = 79536-0] Goal Plan of Care Note [code = 25681-3] Goal Plan of Care Note [code = 43902-1] Goal Plan of Care Note [code = 91112-5] Goal Plan of Care Note [code = 55512-3] Goal Plan of Care Note [code = 33731-3] Goal Plan of Care Note [code = 01376-1] Goal Plan of Care Note [code = 48242-1] Goal Plan of Care Note [code = 65688-5] Goal Plan of Care Note [code = 60641-3] Goal Plan of Care Note [code = 50763-6] Goal Plan of Care Note [code = 74417-1] Goal Plan of Care Note [code = 57541-0] Goal Plan of Care Note [code = 36554-1] Goal Plan of Care Note [code = 89831-5] Goal Plan of Care Note [code = 21259-6] Goal Plan of Care Note [code = 76294-2] Goal Plan of Care Note [code = 93820-9] Goal Plan of Care Note [code = 20820-0] Goal Plan of Care Note [code = 18365-2] Goal Plan of Care Note [code = 30335-0] Goal Plan of Care Note [code = 15796-7] Goal Plan of Care Note [code = 08669-0] Goal Plan of Care Note [code = 83296-7] Goal Plan of Care Note [code = 63153-5] Goal Plan of Care Note [code = 06166-1] Goal Plan of Care Note [code = 02004-9] Goal Plan of Care Note [code = 89150-0] Goal Plan of Care Note [code = 93195-0] Goal Plan of Care Note [code = 79019-8] Goal Plan of Care Note [code = 93589-3] Goal Plan of Care Note [code = 45881-6] Goal Plan of Care Note [code = 86871-5] Goal Plan of Care Note [code = 14573-0] Goal Plan of Care Note [code = 14966-3] Goal Plan of Care Note [code = 95949-0] Goal Plan of Care Note [code = 14929-7] Goal Plan of Care Note [code = 84173-5] Goal Plan of Care Note [code = 01547-8] Goal Plan of Care Note [code = 28202-8] Goal Plan of Care Note [code = 25098-2] Goal Plan of Care Note [code = 53059-0] Goal Plan of Care Note [code = 89338-7] Goal Plan of Care Note [code = 65710-0] Goal Plan of Care Note [code = 59176-5] Goal Plan of Care Note [code = 31835-7] Goal Plan of Care Note [code = 04762-4] Goal Plan of Care Note [code = 84401-8] Goal Plan of Care Note [code = 32480-8] Goal Plan of Care Note [code = 90148-4] Goal Plan of Care Note [code = 65585-8] Goal Plan of Care Note [code = 15939-3] Goal Plan of Care Note [code = 90570-6] Goal Plan of Care Note [code = 23614-5] Goal Plan of Care Note [code = 72666-7] Goal Plan of Care Note [code = 86275-7] Goal Plan of Care Note [code = 24344-2] Goal Plan of Care Note [code = 26430-9] Goal Plan of Care Note [code = 71159-1] Goal Plan of Care Note [code = 25865-8] Goal Plan of Care Note [code = 14868-5] Goal Plan of Care Note [code = 61208-3] Goal Plan of Care Note [code = 02874-3] Goal Plan of Care Note [code = 97898-8] Goal Plan of Care Note [code = 73782-0] Goal Plan of Care Note [code = 50342-6] Goal Plan of Care Note [code = 60731-1] Goal Plan of Care Note [code = 02623-2] Goal Plan of Care Note [code = 57205-2] Goal Plan of Care Note [code = 61654-5] Goal Plan of Care Note [code = 06208-0] Goal Plan of Care Note [code = 68904-0] Goal Plan of Care Note [code = 31393-6] Goal Plan of Care Note [code = 88508-0] Goal Plan of Care Note [code = 88444-0] Goal Plan of Care Note [code = 11428-6] Goal Plan of Care Note [code = 93001-2] Goal Plan of Care Note [code = 18505-4] Goal Plan of Care Note [code = 61689-0] Goal Plan of Care Note [code = 18320-8] Goal Plan of Care Note [code = 25469-8] Goal Plan of Care Note [code = 64908-4] Goal Plan of Care Note [code = 23454-6] Goal Plan of Care Note [code = 61871-0] Goal Plan of Care Note [code = 26906-3] Goal Plan of Care Note [code = 44479-5] Goal Plan of Care Note [code = 44903-2] Goal Plan of Care Note [code = 74339-1] Goal Plan of Care Note [code = 55130-8] Goal Plan of Care Note [code = 90751-4] Goal Plan of Care Note [code = 42610-5] Goal Plan of Care Note [code = 77434-6] Goal Plan of Care Note [code = 78327-4] Goal Plan of Care Note [code = 64336-8] Goal Plan of Care Note [code = 15315-1] Encounters Start Date/Time End Date/Time Encounter Type Admission Type Attending Clinicians Care Facility Care Department Encounter ID Source 2023-01-16 18:33:41 Outpatient X [facility] [id number] [facility] 2023-09-29 12:30:00 2023-09-29 12:30:00 Outpatient R GIULIA QUINTERO [facility] [id number] [facility] 2023-09-29 11:12:00 2023-09-29 12:19:00 Emergency X DOUGBENITO JOYNERIO [facility] ERT [id number] [facility] 2023-09-29 11:12:00 2023-09-29 12:19:00 Emergency Hossein Garcia [facility] 1.2.840.114 350.1.13.10 4.2.7.2.[id number] [facility] 2023-09-16 15:00:00 2023-09-16 15:12:22 Outpatient R GIULIA QUINTERO [facility] [id number] [facility] 2023-09-16 15:00:00 2023-09-16 15:12:22 Office Visit Giulia Quintero [facility] 1.2.840.114 350.1.13.10 4.2.7.2.[id number] [facility] 2023 14:00:00 2023 14:00:00 Outpatient R [facility] [id number] [facility] 2023-08-30 13:30:00 2023-08-30 14:13:23 Outpatient R GIULIA QUINTERO [facility] [id number] [facility] 2023-08-30 13:30:00 2023-08-30 14:13:23 Office [facility] 1.2.840.114 350.1.13.10 4.2.7.2.[id number] [facility] 2023-05-04 13:45:00 2023-05-04 13:45:00 Outpatient R MEDNOZA WASHBURN [facility] [id number] [facility] 2023-05-03 08:30:00 2023-05-03 08:54:06 Outpatient R MENDOZA WASHBURN [facility] [id number] [facility] 2023-05-03 08:30:00 2023-05-03 08:54:06 Office Visit Mendoza [place] [facility] 1.2.840.114 350.1.13.10 4.2.7.2.[id number] [facility] 2023-05-03 00:00:00 2023-05-03 00:00:00 Orders Only Doctor Unassigned, [place] [facility] 1.2840.114 350.1.13.10 4.2.7.2.[id number] [facility] 2023-04-27 00:00:00 2023-04-27 00:00:00 Telephone Mendoza Washburn [facility] 1.2840.114 350.1.13.10 4.2.7.2.[id number] [facility] 2023-04-26 13:00:00 2023-04-26 13:33:14 Outpatient R MENDOZA WASHBURN [facility] [id number] [facility] 2023-04-26 13:00:00 2023-04-26 13:33:14 Routine Visit Mendoza Washburn [facility] 1.2840.114 350.1.13.10 4.2.7.2.[id number] [facility] 2023-03-30 00:00:00 2023-03-30 00:00:00 Telephone Mendoza [place] [facility] 1.2840.114 350.1.13.10 4.2.7.2.[id number] [facility] 2023-03-24 01:37:00 2023-03-25 22:10:00 Inpatient P MENDOZA WASHBURN [facility]AMARIS [id number] [facility] 2023-03-24 01:37:00 2023-03-25 22:10:00 Hospital Encounter Mendoza Washburn [facility] 1.2.840.114 350.1.13.10 4.2.7.2.[id number] [facility] 2023-03-24 08:45:00 2023-03-24 21:36:00 Anesthesia Event Stalin Benito Stacey [facility] 1.2.840.114 350.1.13.10 4.2.7.2.[id number] [facility] 2023-03-24 07:00:58 2023-03-24 07:00:58 Anesthesia Event Dc Marivelvick Pittman [facility] 1.2.840.114 350.1.13.10 4.2.7.2.[id number] [facility] 2023-03-24 00:00:00 2023-03-24 00:00:00 Orders Only Doctor Unassigned, [place] [facility] 1.2.840.114 350.1.13.10 4.2.7.2.[id number] [facility] 2023-03-23 00:00:00 2023-03-23 00:00:00 Orders Only Doctor Unassigned, [place] [facility] 1.2.840.114 350.1.13.10 4.2.7.2.[id number] 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 2023-03-22 15:00:00 2023-03-22 15:00:00 Outpatient R MENDOZA WASHBURN [facility] [id number] [facility] 2023-03-22 14:15:00 2023-03-22 14:47:16 Routine Visit Mendoza Washburn [facility] 1.2840.114 350.1.13.10 4.2.7.2.[id number] [facility] 2023-03-22 00:00:00 2023-03-22 00:00:00 Orders Only Doctor Unassigned, [place] [facility] 1.284.114 350.1.13.10 4.2.7.2.[id number] [facility] 2023-03-15 15:00:00 2023-03-15 15:23:44 Outpatient R RACHANA S, SADIA OBINNA-LUCIUS [facility] [id number] [facility] 2023-03-15 15:00:00 2023-03-15 15:23:44 Routine Visit Sadia Rene [facility] 1.2.840.114 350.1.13.10 4.2.7.2.[id number] [facility] 2023-03-08 14:15:00 2023-03-08 14:29:55 Outpatient R MENDOZA [facility]URN [facility] [id number] [facility] 2023-03-08 14:15:00 2023-03-08 14:29:55 Routine Visit Mendoza Washburn [facility] 1.2840.114 350.1.13.10 4.2.7.2.[id number] [facility] 2023-03-03 00:00:00 2023-03-03 00:00:00 Case Management Mendoza [place] [facility] 1.2.840.114 350.1.13.10 4.2.7.2.[id number] 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 2023-03-01 14:00:00 2023-03-01 15:17:01 Outpatient R MENDOZA [facility]URN [facility] [id number] [facility] 2023-03-01 14:00:00 2023-03-01 15:17:01 Routine Visit Mendoza Washburn [facility] 1.2840.114 350.1.13.10 4.2.7.2.[id number] [facility] 2023-02-25 00:00:00 2023-02-25 00:00:00 Telephone Mendoza Wash[place] [facility] 1.2.840.114 350.1.13.10 4.2.7.2.[id number] [facility] 2023-02-24 00:00:00 2023-02-24 00:00:00 Orders Only Doctor Unassigned, [place] [facility] 1.2.840.114 350.1.13.10 4.2.7.2.[id number] [facility] 2023-02-16 00:00:00 2023-02-16 00:00:00 Telephone Mendoza [place] [facility] 1.2840.114 350.1.13.10 4.2.7.2.[id number] [facility] 2023-02-16 00:00:00 2023-02-16 00:00:00 Case Management NicolejoseIndira [facility] 1.840.114 350.1.13.10 4.2.7.2.[id number] 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 1.840.114 350.1.13.10 4.2.7.2.[id number] [facility] 2023-02-15 15:00:00 2023-02-15 15:00:00 Outpatient P RHYS WELLS [facility] [id number] [facility] 2023-02-14 14:15:00 2023-02-14 15:13:56 Outpatient R MENDOZA [facility]URN [facility] [id number] [facility] 2023-02-14 14:15:00 2023-02-14 15:13:56 Routine Visit Mendoaz Wash[place] [facility] 1.2840.114 350.1.13.10 4.2.7.2.[id number] [facility] 2023-02-14 00:00:00 2023-02-14 00:00:00 Orders Only Doctor Unassigned, [place] [facility] 1.2840.114 350.1.13.10 4.2.7.2.[id number] [facility] 2023-02-02 13:45:00 2023-02-02 14:22:21 Outpatient R KELININDIRA ALMARAZ NICOLEINDIRA ARCOS [facility] [id number] [facility] 2023-02-02 13:45:00 2023-02-02 14:22:21 Routine Visit CarringtonIndira villarreal [facility] 1.2.840.114 350.1.13.10 4.2.7.2.[id number] [facility] 2023-02-01 19:10:00 2023-02-02 00:20:00 Outpatient X VIVIANE URIARTE ADAMAR[facility] [id number] [facility] 2023-02-01 19:10:00 2023-02-02 00:20:00 Emergency Adcolin Viviane L [facility] 1.2.840.114 350.1.13.10 4.2.7.2.[id number] [facility] 2023-01-20 00:00:00 2023-01-20 00:00:00 Orders Only Doctor Unassigned, [place] [facility] 1.2.840.114 350.1.13.10 4.2.7.2.[id number] [facility] 2023-01-19 16:15:00 2023-01-19 16:15:00 Routine Visit NicoleIndira arcos [facility] 1.2.840.114 350.1.13.10 4.2.7.2.[id number] [facility] 2023-01-19 16:15:00 2023-01-19 16:01:14 Outpatient R NICOLEINDIRA ARCOS NICOLEROCÍO [facility] [id number] [facility] 2023-01-19 00:00:00 2023-01-19 00:00:00 Case Management Indira Kelly [facility] 1.2840.114 350.1.13.10 4.2.7.2.[id number] [facility] 2023-01-16 15:15:00 2023-01-16 18:15:00 Outpatient X YOON-LUCIUS S, SADIA YOON-LUCIUS S, SADIA [facility] ADAMARIS [id number] [facility] 2023-01-16 15:15:00 2023-01-16 18:15:00 Emergency Kassidy Fowlerio-Lucius s, Sadia [facility] 1.2.840.114 350.1.13.10 4.2.7.2.[id number] [facility] 2023-01-14 14:53:49 2023-01-14 14:53:49 Outpatient [facility] [id number] Serafin Girard Flako 2023-01-13 00:00:00 2023-01-13 00:00:00 Telephone Indira Kelly [facility] 1.2.840.114 350.1.13.10 4.2.7.2.[id number] [facility] 2023-01-05 00:00:00 2023-01-05 00:00:00 Orders Only Doctor Unassigned, [place] [facility] 1.2.840.114 350.1.13.10 4.2.7.2.[id number] [facility] 2022-11-08 10:00:00 2022-11-08 10:00:00 Outpatient P [facility] [id number] [facility] 2022-11-05 08:30:00 2022-11-05 08:30:00 Outpatient P [facility] [id number] [facility] 2022-10-25 09:15:00 2022-10-25 09:15:00 Outpatient R INDIRA KELLYKIRAINDIRA [facility]COS [facility] [id number] [facility] 2022-10-20 00:00:00 2022-10-20 00:00:00 Orders Only Doctor Unassigned, [place] [facility] 1.2.840.114 350.1.13.10 4.2.7.2.[id number] [facility] 2022-10-17 00:00:00 2022-10-17 00:00:00 Telephone Indira Kelly [facility] 1.2.840.114 350.1.13.10 4.2.7.2.[id number] [facility] 2022-10-11 00:00:00 2022-10-11 00:00:00 Telephone KelinIndira almaraz [facility] 1.2.840.114 350.1.13.10 4.2.7.2.[id number] [facility] 2022-10-01 00:00:00 2022-10-01 00:00:00 Letter (Out) KelinIndira almaraz [facility] 1.2.840.114 350.1.13.10 4.2.7.2.[id number] [facility] 2022-09-30 10:15:05 2022-09-30 10:15:05 Outpatient [facility] [id number] Serafin Arriola 2022-09-27 16:36:06 2022-09-27 16:36:06 Outpatient [facility] [id number] Serafin Arriola 2022-09-27 13:30:00 2022-09-27 14:33:13 Outpatient R NICOLEROCÍO ARCOSTONEY BOSCHCHRISTOPHEKIRAINDIRA ARCOS [facility] [id number] [facility] 2022-09-27 13:30:00 2022-09-27 14:33:13 Initial Visit Indira Kelly [facility] 1.2.840.114 350.1.13.10 4.2.7.2.[id number] [facility] 2022-09-27 00:00:00 2022-09-27 00:00:00 Orders Only Doctor Unassigned, [place] [facility] 1.2.840.114 350.1.13.10 4.2.7.2.[id number] [facility] 2022-09-08 13:23:15 2022-09-08 13:23:15 Outpatient [facility] [id number] Serafin Arriola 2022-09-07 17:08:57 2022-09-07 17:08:57 Outpatient SFA SFA [id number] Serafin Arriola 2022-09-07 00:00:00 2022-09-07 00:00:00 Outpatient Visit [id number] 2022-07-27 13:04:42 2022-07-27 13:04:42 Outpatient SFA SFA [id number] Serafin Arriola 2022-03-31 00:00:00 2022-03-31 00:00:00 Outpatient Visit [id number] 2022-02-25 00:00:00 2022-02-25 00:00:00 Outpatient Visit [id number] Results Test Description Test Time Test Comments Results [facility]30 20:11:00* Test Item Value Reference Range Interpretation Comme nts POCT SARS-COV-2 ANTIGEN (jaylen t code = 69269-3) Not Detected Not Detected On board controls acceptable with C Line (test code = 3574) Yes [facility] SARS-COV-2 ANTIGEN (BINAX NOW)2023-08-30 20:11:00* Test Item Value Reference Range Interpretation Comme nts POCT SARS-COV-2 ANTIGEN (jaylen t code = 35703-4) Not Detected Not Detected On board controls acceptable with C Line (test code = 3574) Yes [facility] Molecular [id number] 20:08:24* Test Item Value Reference Range Interpretation Comme nts POCT Molecular FluA (test co de = 77954-9) Negative Negative POCT Molecular FluB (test co de = 14182-9) Negative Negative Lab Interpretation (test cod e = 95947-3) Normal [facility] Molecular [id number] 20:08:24* Test Item Value Reference Range Interpretation Comme nts POCT Molecular FluA (test co de = 65695-2) Negative Negative POCT Molecular FluB (test co de = 57642-6) Negative Negative Lab Interpretation (test cod e = 14594-3) Normal [facility] [id number] 13:52:00* Test Item Value Reference Range Interpretation Comme nts POCT PREG (test code = 1605) Negative On board controls acceptable with C Line (test code = 3574) Yes POCT PREG LOT # (test code = 3575) POCT PREG TEST DATE ( test code = 3576) [facility] [id number] 13:52:00* Test Item Value Reference Range Interpretation Comme nts POCT PREG (test code = 1605) Negative On board controls acceptable with C Line (test code = 3574) Yes POCT PREG LOT # (test code = 3575) POCT PREG TEST DATE ( test code = 3576) [facility] with [id number] 11:42:28* Test Item Value Reference Range Interpretation [...] 33.2 g/dL 31.6-35.1 RDW-SD (test code = 35065-0) 41.7 fL 39.0-49.9 RDW-CV (test code = 788-0) 14.4 % 12.0-15.5 PLT (test code = 777-3) 287 See_Comment [Automated message] The system which generated this result transmitted reference range: 166 - 358 10*3/?L. The reference range was not used to interpret this result as normal/abnormal. MPV (test code = 31684-0) 10.2 fL 9.5-12.9 NRBC/100 WBC (test code = 8674581993) 0.0 See_Comment [Automated message] The system which generated this result transmitted reference range: 0.0 - 10.0 /100 WBCs. The reference range was not used to interpret this result as normal/abnormal. NRBC x10^3 (test code = 4612163033) See_Comment [Automated message] The system which generated this result transmitted reference range: 10*3/?L. The reference range was not used to interpret this result as normal/abnormal. GRAN MAT (NEUT) % (test code = 770-8) 85.9 % IMM GRAN % (test code = 4681054089) 0.70 % LYMPH % (test code = 736-9) 9.3 % MONO % (test code = 5905-5) 3.8 % EOS % (test code = 713-8) 0.1 % BASO % (test code = 706-2) 0.2 % GRAN MAT x10^3(ANC) (test code = 6387676450) 17.05 10*3/uL 1.88-7.09 H IMM GRAN x10^3 (test code = 8472660020) 0.13 10*3/uL 0.00-0.06 H LYMPH x10^3 (test code = 731-0) 1.84 10*3/uL 1.32-3.29 MONO x10^3 (test code = 742-7) 0.76 10*3/uL 0.33-0.92 EOS x10^3 (test code = 711-2) 0.03-0.39 L BASO x10^3 (test code = 704-7) 0.04 10*3/uL 0.01-0.07 BANDS (test code = 5800368702) Increased A Lab Interpretation (test code = 13767-1) [facility]normal [facility] I[facility]E [id number] 09:52:15* Test Item Value Reference Range Interpretation Comme nts RHIG CANDIDATE? (test code = 5188) No- see comment Patient is not a candidate for RhIg- Patient is Rh Positive.Performed at [facility] Laboratory Services - [facility] Blood [address] [place] [phone] Free: [phone] No. [id number] [facility] CenterType and Screen - ONCE [id number] 08:10:00* Test Item Value Reference Range Interpretation Comme nts ABO & RH (test code = 20) A Positive IAT (test code = 1185) Negative [facility]/O SPECIFIC [id number] 19:12:00* Test Item Value Reference Range Interpretation [...] = 3257) 250 Negative - Negati ve [facility] URINALYSIS W/O SPECIFIC [id number] 20:12:00* Test Item Value Reference Range Interpretation [...] = 3257) n/a Negative - Negati ve [facility] URINALYSIS W/O SPECIFIC [id number] 19:09:00* Test Item Value Reference Range Interpretation [...] = 3257) n/a Negative - Negati ve [facility] URINALYSIS W/O SPECIFIC [id number] 19:35:00* Test Item Value Reference Range Interpretation [...] = 3257) n/a Negative - Negati ve [facility] URINALYSIS W/O SPECIFIC [id number] 19:36:00* Test Item Value Reference Range Interpretation [...] = 3257) n/a Negative - Negati ve [facility] URINALYSIS W/O SPECIFIC [id number] 19:36:00* Test Item Value Reference Range Interpretation [...] = 3257) n/a Negative - Negati ve [facility] URINALYSIS W/O SPECIFIC [id number] 20:39:00* Test Item Value Reference Range Interpretation [...] = 3257) N/A Negative - Negati ve [facility] CenterPAP [facility], THINPREP, [id number] 14:51:31 * Test Item Value Reference Range Interpretation Comme nts SOURCE: (test code = 8001) Cervical SLIDES: (test code = 8011) 1 LMP: (test code = 8021) 06/20/2022 SPECIMEN ADEQUACY: (test code = 78597) (NOTE) Satisfactory for evaluation. Endocervical cells/transformation zone component present. INTERPRETATION: (test code = 30084) NILM/NO EPITH. ABNORMALITY;SEE BELOW --- - NEGATIVE FOR INTRAEPITHELIAL LESION OR MALIGNANCY (NILM) ---- OTHER COMMENTS: (test code = 8081) (NOTE) Shift in trent suggestive of bacterial vaginosis. NOVELTY PRINTING MACHINE OPERATOR : (test code = 8101) OLIVER Martinez(ASCP) LOCATION: (test code = 78223) (NOTE) Specimens proces sed and interpreted at [facility], [address] [place] [address], , CLIA: [id number] CPT: (test code = 8140) (NOTE) 35542 UNLESS OTH ERWISE INDICATED, COMPUTER AIDED AND NOVELTY PRINTING MACHINE OPERATOR SCREENING PERFORMED. The Pap test is a screening test with an inherent, but low probability of error. Your patient should be reminded to consult you immediately if she experiences any suspicious signs or symptoms, regardless of her Pap test result. An alternate report format containing images or consolidated prior Pap history is available as applicable. HPV HIGH RISK WITH GENOTYPE, [id number] 13:47:49* Test Item Value Reference Range Interpretation Comme nts HPV HIGH RISK INTERP (test code = 51504) NEGATIVE NEGATIVE HPV 16 (test code = 70459) NEGATIVE HPV 18 (test code = 41882) NEGATIVE HPV, HR, OTHER GENOTYPES (test code = 29088) NEGATIVE Testing methodol ogy is real-time PCR [...] level of infection or specimen sampling error. [facility] has important pathology staff changes effective 10/20/2022. New pathology staff will provide uninterrupted, excellent patient care and clinical consultation. See URL: [email or web address] Fiber [email or web address]. UNLESS OTHERWISE INDICATED, ALL TESTING PERFORMED AT [facility] [address] [place] [address] CLIA: [id number], CAP: [id number] POCT URINALYSIS W/O SPECIFIC [id number] 20:17:00* Test Item Value Reference Range Interpretation [...] = 3257) N/A Negative - Negati ve [facility] CenterHEMOGLOBIN [id number] 14:58:32 * Test Item Value Reference Range [...] DETECTED OTHER HEMOGLOBIN VARIANT (test code = 68393) NONE DETEC % NONE DETECTED PATHOLOGIST'S INTERPRETATION (test code = 2577) (NOTE) NO ABNORMAL HEMOGLOBINS IDENTIFIED. LAITH BALLESTEROS M.D. PAP TEST, THINPREP, [id number] 13:40:58* Test Item Value Reference Range Interpretation Comme nts SOURCE: (test code = 8001) Cervical/Endoce rvical SLIDES: (test code = 8011) 2 LMP: (test code = 8021) 07/20/2022 SPECIMEN ADEQUACY: (test code = 79571) (NOTE) Unsatisfactory ( see Interpretation). INTERPRETATION: (test code = 88326) UNSATISFACTORY; SEE BELOW A --- - UNSATISFACTORY FOR EVALUATION Insufficient cellularity (Charges deleted, please resubmit) OTHER COMMENTS: (test code = 8081) (NOTE) Glacial acetic a bijan added due to blood/mucus in specimen. NOVELTY PRINTING MACHINE OPERATOR : (test code = 8101) Sara De La Rosa TECHNOLOGIST: (test code = 8111) ANISHA Henry(ASCP) [facility] LOCATION: (test code = 87493) (NOTE) Specimens proces sed and interpreted at [facility], [address] [facility] [place] [address], , CLIA: [id number] CPT: (test code = 8140) (NOTE) 31589 UNLESS OTH ERWISE INDICATED, COMPUTER AIDED AND NOVELTY PRINTING MACHINE OPERATOR SCREENING PERFORMED. The Pap test is a screening test with an inherent, but low probability of error. Your patient should be reminded to consult you immediately if she experiences any suspicious signs or symptoms, regardless of her Pap test result. An alternate report format containing images or consolidated prior Pap history is available as applicable. CULTURE, [id number] 12:16:01SPECIMEN NUMBER: [id number] CULTURE, URINE SPECIMEN NUMBER: [id number] SPECIMEN COMMENT: URINE SOURCE: URINE REPORT STATUS: [...] NO COMMON PATHOGENSHPV HIGH RISK WITH GENOTYPE, [id number] 15:55:11* Test Item Value Reference Range Interpretation Comme nts HPV HIGH RISK INTERP (test code = 25369) NEGATIVE NEGATIVE HPV 16 (test code = 32522) NEGATIVE HPV 18 (test code = 39734) NEGATIVE HPV, HR, OTHER GENOTYPES (test code = 66255) NEGATIVE Testing methodol ogy is real-time PCR [...] error. UNLESS OTHERWISE INDICATED, ALL TESTING PERFORMED [facility] [address] [place] [address] THIRD MATE: ASHLEY ZARAGOZA M.D. CLIA NUMBER [id number] [facility] [place]. [id number] VAGINAL PATHOGENS DNA [id number] 15:49:27* Test Item Value Reference Range Interpretation Comme nts BEATA SPECIES (test code = 40717) POSITIVE NEGATIVE A G. VAGINALIS (test code = 51734) POSITIVE NEGATIVE A T. VAGINALIS (test code = 65412) NEGATIVE NEGATIVE Note: The BD [facility] VPIII Microbial Identification Testis a DNA probe test intended for use in the detectionand identification of Beata species, Gardnerellavaginalis and Trichomonas vaginalis nucleic acid. UNLESS OTHERWISE INDICATED, ALL TESTING PERFORMED [facility] [address] [place] [address] THIRD MATE: ASHLEY ZARAGOZA M.D. [facility] NUMBER [id number] [facility] [place]. [id number] VARICELLA ZOSTER [id number] 13:53:47* Test Item Value Reference Range Interpretation Comme nts VARICELLA ZOSTER IgG (test code = 78139) 51 INDEX SEE BELOW L INTERPRETATI ON [...] . . . INDEX >=165 CT/NG, NAAT, [id number] 13:36:33* Test Item Value Reference Range Interpretation Comme nts CHLAMYDIA, NAAT, THINPREP (test code = 63553) NEGATIVE NEGATIVE A negative resul t does not exclude low level infection, specimensampling error, or collection error. Testing is performed with the Jesusita Gonz[employer]lez 6800/8800 systems usingreal-time Polymerase Chain Reaction (PCR) method. GONORRHEA, NAAT, THINPREP (test code = 83448) NEGATIVE NEGATIVE A negative resul t does not exclude low level infection, specimensampling error, or collection error. Testing is performed with the [employer] Gonz[employer] 6800/8800 systems usingreal-time Polymerase Chain Reaction (PCR) method. DRUG ABUSE SCREEN 10 REFLEX [id number] 04:56:34* Test Item Value Reference Range Interpretation Comme nts AMPHETAMINES (test code = 3201) NEGATIVE NEGATIVE BARBITURATES (test code = 3202) NEGATIVE NEGATIVE BENZODIAZEPINES (test code = 3203) NEGATIVE NEGATIVE CANNABINOIDS (test code = 3204) NEGATIVE NEGATIVE COCAINE METABOLITE (test code = 3205) NEGATIVE NEGATIVE OPIATES (test code = 3209) NEGATIVE NEGATIVE OXYCODONE (test code = 16007) NEGATIVE NEGATIVE PHENCYCLIDINE (test code = 3210) NEGATIVE NEGATIVE METHADONE (test code = 3207) NEGATIVE NEGATIVE BUPRENORPHINE (test code = 81339) NEGATIVE NEGATIVE SOURCE (test code = 024608) URINE SEE BELOW FO R THRESHOLDS AND [...] ALL TESTING PERFORMED [facility] [address] [place] [address] THIRD MATE: ASHLEY ZARAGOZA M.D. CLIA NUMBER [id number] [facility] [place]. [id number] OBSTETRIC PANEL + [id number] 04:55:00* Test Item Value Reference Range Interpretation [...] 0.00-0.10 ABS NUCLEATED RBCS (test code = 34164) 0.00 K/UL 0.00-0.11 BLOOD TYPE AND RH [...] BELOW RUBELLA IgG INTERP (test code = 85326) REACTIVE REACTIVE INTERPRETATI ON UNITS RANGE NON-REACTIVE/NON-IMM UNE IU/ML <10 REACTIVE/IMMUNE IU/ML >=10 HEPATITIS B SURF AG (test code = 2739) NON-REACTIVE NON-REACTIVE RPR (test code = 33271) NON-REACTIVE NON-REACTIVE RPR TITER (test code = 3500) NOT INDIC. TITER NOT INDIC. HIV 1/2 4TH GEN, RFLX CONF (test code = 3514) NON-REACTIVE NON-REACTIVE HEPATITIS C REFLEX [id number] 04:55:00* Test Item Value Reference Range Interpretation Comme nts HEPATITIS C ANTIBODY (test c ode = 4675) NON-REACTIVE NON-REACTIVE VAGINAL PATHOGENS DNA [id number] 17:28:27* Test Item Value Reference Range Interpretation Comme nts BEATA SPECIES (test code = ) NEGATIVE NEGATIVE G. VAGINALIS (test code = 09150) POSITIVE NEGATIVE A T. VAGINALIS (test code = 42725) NEGATIVE NEGATIVE UNLESS OTHERWISE INDICATED, ALL TESTING PERFORMED [facility] [address] [place] [address] THIRD MATE: ASHLEY ZARAGOZA M.D. CLIA NUMBER [id number] [facility] [place]. [id number] VAGINAL PATHOGENS DNA [id number] 00:00:00* Test Item Value Reference Range Interpretation Comme nts BEATA SPECIES (test code = ) NEGATIVE G. VAGINALIS (test code = 74807) POSITIVE T. VAGINALIS (test code = 00746) NEGATIVE VAGINAL PATHOGENS DNA [id number] 00:00:00* Test Item Value Reference Range Interpretation Comme nts BEATA SPECIES (test code = 00553) NEGATIVE G. VAGINALIS (test code = 12566) POSITIVE T. VAGINALIS (test code = 82898) NEGATIVE VAGINAL PATHOGENS DNA [id number] 00:00:00* Test Item Value Reference Range Interpretation Comme nts BEATA SPECIES (test code = 00680) NEGATIVE G. VAGINALIS (test code = 15327) POSITIVE T. VAGINALIS (test code = 49072) NEGATIVE VAGINAL PATHOGENS DNA [id number] 00:00:00* Test Item Value Reference Range Interpretation Comme nts BEATA SPECIES (test code = 52050) NEGATIVE G. VAGINALIS (test code = 75212) POSITIVE T. VAGINALIS (test code = 03296) NEGATIVE CULTURE, [id number] 11:55:32SPECIMEN NUMBER: [id number] CULTURE, URINE SPECIMEN NUMBER: [id number] SPECIMEN COMMENT: URINE SOURCE: URINE REPORT STATUS: FINAL FINAL REPORT: 02/28/2022 10-50,000 CFU/ML UROGENITAL TRENT PRESENT NO C OMMON PATHOGENSCULTURE, [id number] 00:00:00* Test Item Value Reference Range Interpretation Comme nts CULTURE, URINE (test code = 75302) SPECIMEN NUMBER: [id number] CULTURE, [id number] 00:00:00* Test Item Value Reference Range Interpretation Comme nts CULTURE, URINE (test code = 18329) SPECIMEN NUMBER: [id number] CULTURE, [id number] 00:00:00* Test Item Value Reference Range Interpretation Comme nts CULTURE, URINE (test code = 42351) SPECIMEN NUMBER: [id number] CULTURE, [id number] 00:00:00* Test Item Value Reference Range Interpretation Comme nts CULTURE, URINE (test code = 51049) SPECIMEN NUMBER: [id number] CHLAMYDIA, AMPLIFIED, [id number] 00:00:00* Test Item Value Reference Range Interpretation Comme nts CHLAMYDIA, NAAT (test code = 04395) NEGATIVE CHLAMYDIA, AMPLIFIED, [id number] 00:00:00* Test Item Value Reference Range Interpretation Comme nts CHLAMYDIA, NAAT (test code = 17812) NEGATIVE GC, AMPLIFIED, [id number] 00:00:00* Test Item Value Reference Range Interpretation Comme nts GONORRHEA, NAAT (test code = 34648) NEGATIVE GC, AMPLIFIED, [id number] 00:00:00* Test Item Value Reference Range Interpretation Comme nts GONORRHEA, NAAT (test code = 45373) NEGATIVE CHLAMYDIA, AMPLIFIED, [id number] 00:00:00* Test Item Value Reference Range Interpretation Comme nts CHLAMYDIA, NAAT (test code = 63377) NEGATIVE CHLAMYDIA, AMPLIFIED, [id number] 00:00:00* Test Item Value Reference Range Interpretation Comme nts CHLAMYDIA, NAAT (test code = 73370) NEGATIVE CHLAMYDIA, AMPLIFIED, [id number] 00:00:00* Test Item Value Reference Range Interpretation Comme nts CHLAMYDIA, NAAT (test code = 91934) NEGATIVE GC, AMPLIFIED, [id number] 00:00:00* Test Item Value Reference Range Interpretation Comme nts GONORRHEA, NAAT (test code = 16586) NEGATIVE GC, AMPLIFIED, [id number] 00:00:00* Test Item Value Reference Range Interpretation Comme nts GONORRHEA, NAAT (test code = 65575) NEGATIVE GC, AMPLIFIED, [id number] 00:00:00* Test Item Value Reference Range Interpretation Comme nts GONORRHEA, NAAT (test code = 35702) NEGATIVE HCG, [id number] 00:00:00* Test Item Value Reference Range Interpretation Comme nts HCG, QUANTITATIVE (test code = 2506) <5 MIU/ML HCG, [id number] 00:00:00* Test Item Value Reference Range Interpretation Comme nts HCG, QUANTITATIVE (test code = 2506) <5 MIU/ML HCG, [id number] 00:00:00* Test Item Value Reference Range Interpretation Comme nts HCG, QUANTITATIVE (test code = 2506) <5 MIU/ML HCG, [id number] 00:00:00* Test Item Value Reference Range Interpretation Comme nts HCG, QUANTITATIVE (test code = 2506) <5 MIU/ML HCG, [id number] 00:00:00* Test Item Value Reference Range Interpretation Comme nts HCG, QUANTITATIVE (test code = 2506) <5 MIU/ML HCG, [id number] 00:00:00* Test Item Value Reference Range Interpretation Comme nts HCG, QUANTITATIVE (test code = 2506) <5 MIU/ML HCG, [id number] 00:00:00* Test Item Value Reference Range Interpretation Comme nts HCG, QUANTITATIVE (test code = 2506) <5 MIU/ML HCG, [id number] 00:00:00* Test Item Value Reference Range Interpretation Comme nts HCG, QUANTITATIVE (test code = 2506) <5 MIU/ML HIV AB/AG COMBO RFLX [id number] 00:00:00* Test Item Value Reference Range Interpretation Comme nts HIV 1/2 4TH GEN, RFLX CONF ( test code = 3514) NON-REACTIVE HIV AB/AG COMBO RFLX [id number] 00:00:00* Test Item Value Reference Range Interpretation Comme nts HIV 1/2 4TH GEN, RFLX CONF ( test code = 3514) NON-REACTIVE ACUTE HEPATITIS [id number] 00:00:00* Test Item Value Reference Range Interpretation Comme nts HEPATITIS A IgM (test code = 48924) NON-REACTIVE HEPATITIS B CORE IgM (test c ode = 4644) NON-REACTIVE HEPATITIS B SURF AG (test co de = 2739) NON-REACTIVE HEPATITIS C ANTIBODY (test c ode = 4675) NON-REACTIVE INTERPRETATION HEPATITIS A: (test code = 2552) (NOTE) INTERPRETATION HEPATITIS B: (test code = 71278) (NOTE) INTERPRETATION HEPATITIS C: (test code = 16136) (NOTE) ACUTE HEPATITIS [id number] 00:00:00* Test Item Value Reference Range Interpretation Comme nts HEPATITIS A IgM (test code = 75841) NON-REACTIVE HEPATITIS B CORE IgM (test c ode = 4644) NON-REACTIVE HEPATITIS B SURF AG (test co de = 2739) NON-REACTIVE HEPATITIS C ANTIBODY (test c ode = 4675) NON-REACTIVE INTERPRETATION HEPATITIS A: (test code = 2552) (NOTE) INTERPRETATION HEPATITIS B: (test code = 56208) (NOTE) INTERPRETATION HEPATITIS C: (test code = 30431) (NOTE) CHLAMYDIA, AMPLIFIED, [id number] 00:00:00* Test Item Value Reference Range Interpretation Comme nts CHLAMYDIA, NAAT (test code = 75648) TEST NOT PERFORMED CHLAMYDIA, AMPLIFIED, [id number] 00:00:00* Test Item Value Reference Range Interpretation Comme nts CHLAMYDIA, NAAT (test code = 53299) TEST NOT PERFORMED GC, AMPLIFIED, [id number] 00:00:00* Test Item Value Reference Range Interpretation Comme nts GONORRHEA, NAAT (test code = 74969) TEST NOT PERFORMED GC, AMPLIFIED, [id number] 00:00:00* Test Item Value Reference Range Interpretation Comme nts GONORRHEA, NAAT (test code = 23795) TEST NOT PERFORMED HIV AB/AG COMBO RFLX [id number] 00:00:00* Test Item Value Reference Range Interpretation Comme nts HIV 1/2 4TH GEN, RFLX CONF ( test code = 3514) NON-REACTIVE HIV AB/AG COMBO RFLX [id number] 00:00:00* Test Item Value Reference Range Interpretation Comme nts HIV 1/2 4TH GEN, RFLX CONF ( test code = 3514) NON-REACTIVE HIV AB/AG COMBO RFLX [id number] 00:00:00* Test Item Value Reference Range Interpretation Comme nts HIV 1/2 4TH GEN, RFLX CONF ( test code = 3514) NON-REACTIVE ACUTE HEPATITIS [id number] 00:00:00* Test Item Value Reference Range Interpretation Comme nts HEPATITIS A IgM (test code = 70596) NON-REACTIVE HEPATITIS B CORE IgM (test c ode = 4644) NON-REACTIVE HEPATITIS B SURF AG (test co de = 2739) NON-REACTIVE HEPATITIS C ANTIBODY (test c ode = 4675) NON-REACTIVE INTERPRETATION HEPATITIS A: (test code = 2552) (NOTE) INTERPRETATION HEPATITIS B: (test code = 81168) (NOTE) INTERPRETATION HEPATITIS C: (test code = 15355) (NOTE) ACUTE HEPATITIS [id number] 00:00:00* Test Item Value Reference Range Interpretation Comme nts HEPATITIS A IgM (test code = 97344) NON-REACTIVE HEPATITIS B CORE IgM (test c ode = 4644) NON-REACTIVE HEPATITIS B SURF AG (test co de = 2739) NON-REACTIVE HEPATITIS C ANTIBODY (test c ode = 4675) NON-REACTIVE INTERPRETATION HEPATITIS A: (test code = 2552) (NOTE) INTERPRETATION HEPATITIS B: (test code = 81887) (NOTE) INTERPRETATION HEPATITIS C: (test code = 92475) (NOTE) ACUTE HEPATITIS [id number] 00:00:00* Test Item Value Reference Range Interpretation Comme nts HEPATITIS A IgM (test code = 71433) NON-REACTIVE HEPATITIS B CORE IgM (test c ode = 4644) NON-REACTIVE HEPATITIS B SURF AG (test co de = 2739) NON-REACTIVE HEPATITIS C ANTIBODY (test c ode = 4675) NON-REACTIVE INTERPRETATION HEPATITIS A: (test code = 2552) (NOTE) INTERPRETATION HEPATITIS B: (test code = 72193) (NOTE) INTERPRETATION HEPATITIS C: (test code = 72308) (NOTE) CHLAMYDIA, AMPLIFIED, [id number] 00:00:00* Test Item Value Reference Range Interpretation Comme nts CHLAMYDIA, NAAT (test code = 72899) TEST NOT PERFORMED CHLAMYDIA, AMPLIFIED, [id number] 00:00:00* Test Item Value Reference Range Interpretation Comme nts CHLAMYDIA, NAAT (test code = 18963) TEST NOT PERFORMED GC, AMPLIFIED, [id number] 00:00:00* Test Item Value Reference Range Interpretation Comme nts GONORRHEA, NAAT (test code = 31119) TEST NOT PERFORMED GC, AMPLIFIED, [id number] 00:00:00* Test Item Value Reference Range Interpretation Comme nts GONORRHEA, NAAT (test code = 77799) TEST NOT PERFORMED CHLAMYDIA, AMPLIFIED, [id number] 00:00:00* Test Item Value Reference Range Interpretation Comme nts CHLAMYDIA, NAAT (test code = 32609) TEST NOT PERFORMED GC, AMPLIFIED, [id number] 00:00:00* Test Item Value Reference Range Interpretation Comme nts GONORRHEA, NAAT (test code = 16640) TEST NOT PERFORMED [id number] 00:00:00* Test Item Value Reference Range Interpretation Comme nts RPR RESULT (test code = 3501) NON-REACTIVE RPR TITER (test code = 3500) NOT INDIC. TITER [id number] 00:00:00* Test Item Value Reference Range Interpretation Comme nts RPR RESULT (test code = 3501) NON-REACTIVE RPR TITER (test code = 3500) NOT INDIC. TITER [id number] 00:00:00* Test Item Value Reference Range Interpretation Comme nts RPR RESULT (test code = 3501) NON-REACTIVE RPR TITER (test code = 3500) NOT INDIC. TITER [id number] 00:00:00* Test Item Value Reference Range Interpretation Comme nts RPR RESULT (test code = 3501) NON-REACTIVE RPR TITER (test code = 3500) NOT INDIC. TITER [id number] 00:00:00* Test Item Value Reference Range Interpretation Comme nts RPR RESULT (test code = 3501) NON-REACTIVE RPR TITER (test code = 3500) NOT INDIC. TITER [id number] 00:00:00* Test Item Value Reference Range Interpretation Comme nts RPR RESULT (test code = 3501) NON-REACTIVE RPR TITER (test code = 3500) NOT INDIC. TITER [id number] 00:00:00* Test Item Value Reference Range Interpretation Comme nts RPR RESULT (test code = 3501) NON-REACTIVE RPR TITER (test code = 3500) NOT INDIC. TITER [id number] 00:00:00* Test Item Value Reference Range Interpretation Comme nts RPR RESULT (test code = 3501) NON-REACTIVE RPR TITER (test code = 3500) NOT INDIC. TITER CULTURE, [id number] 00:00:00* Test Item Value Reference Range Interpretation Comme nts CULTURE, URINE (test code = 50112) SPECIMEN NUMBER: [id number] CULTURE, [id number] 00:00:00* Test Item Value Reference Range Interpretation Comme nts CULTURE, URINE (test code = 68222) SPECIMEN NUMBER: [id number] CULTURE, [id number] 00:00:00* Test Item Value Reference Range Interpretation Comme nts CULTURE, URINE (test code = 61329) SPECIMEN NUMBER: [id number] CULTURE, [id number] 00:00:00* Test Item Value Reference Range Interpretation Comme nts CULTURE, URINE (test code = 99344) SPECIMEN NUMBER: [id number] CULTURE, [id number] 00:00:00* Test Item Value Reference Range Interpretation Comme nts CULTURE, URINE (test code = 80614) SPECIMEN NUMBER: [id number] CHLAMYDIA, AMPLIFIED, [id number] 00:00:00* Test Item Value Reference Range Interpretation Comme nts CHLAMYDIA, NAAT (test code = 28367) NEGATIVE CHLAMYDIA, AMPLIFIED, [id number] 00:00:00* Test Item Value Reference Range Interpretation Comme nts CHLAMYDIA, NAAT (test code = 35925) NEGATIVE GC, AMPLIFIED, [id number] 00:00:00* Test Item Value Reference Range Interpretation Comme nts GONORRHEA, NAAT (test code = 94996) NEGATIVE GC, AMPLIFIED, [id number] 00:00:00* Test Item Value Reference Range Interpretation Comme nts GONORRHEA, NAAT (test code = 15210) NEGATIVE HIV AB/AG COMBO RFLX [id number] 00:00:00* Test Item Value Reference Range Interpretation Comme nts HIV 1/2 4TH GEN, RFLX CONF ( test code = 3514) NON-REACTIVE HIV AB/AG COMBO RFLX [id number] 00:00:00* Test Item Value Reference Range Interpretation Comme nts HIV 1/2 4TH GEN, RFLX CONF ( test code = 3514) NON-REACTIVE [id number] 00:00:00* Test Item Value Reference Range Interpretation Comme nts RPR RESULT (test code = 3501) NON-REACTIVE RPR TITER (test code = 3500) NOT INDIC. TITER [id number] 00:00:00* Test Item Value Reference Range Interpretation Comme nts RPR RESULT (test code = 3501) NON-REACTIVE RPR TITER (test code = 3500) NOT INDIC. TITER [id number] 00:00:00* Test Item Value Reference Range Interpretation Comme nts RPR RESULT (test code = 3501) NON-REACTIVE RPR TITER (test code = 3500) NOT INDIC. TITER CHLAMYDIA, AMPLIFIED, [id number] 00:00:00* Test Item Value Reference Range Interpretation Comme nts CHLAMYDIA, NAAT (test code = 28611) NEGATIVE CHLAMYDIA, AMPLIFIED, [id number] 00:00:00* Test Item Value Reference Range Interpretation Comme nts CHLAMYDIA, NAAT (test code = 80930) NEGATIVE CHLAMYDIA, AMPLIFIED, [id number] 00:00:00* Test Item Value Reference Range Interpretation Comme nts CHLAMYDIA, NAAT (test code = 80609) NEGATIVE GC, AMPLIFIED, [id number] 00:00:00* Test Item Value Reference Range Interpretation Comme nts GONORRHEA, NAAT (test code = 83635) NEGATIVE GC, AMPLIFIED, [id number] 00:00:00* Test Item Value Reference Range Interpretation Comme nts GONORRHEA, NAAT (test code = 84200) NEGATIVE HIV AB/AG COMBO RFLX [id number] 00:00:00* Test Item Value Reference Range Interpretation Comme nts HIV 1/2 4TH GEN, RFLX CONF ( test code = 3514) NON-REACTIVE HIV AB/AG COMBO RFLX [id number] 00:00:00* Test Item Value Reference Range Interpretation Comme nts HIV 1/2 4TH GEN, RFLX CONF ( test code = 3514) NON-REACTIVE [id number] 00:00:00* Test Item Value Reference Range Interpretation Comme nts RPR RESULT (test code = 3501) NON-REACTIVE RPR TITER (test code = 3500) NOT INDIC. TITER [id number] 00:00:00* Test Item Value Reference Range Interpretation Comme nts RPR RESULT (test code = 3501) NON-REACTIVE RPR TITER (test code = 3500) NOT INDIC. TITER [id number] 00:00:00* Test Item Value Reference Range Interpretation Comme nts RPR RESULT (test code = 3501) NON-REACTIVE RPR TITER (test code = 3500) NOT INDIC. TITER GC, AMPLIFIED, [id number] 00:00:00* Test Item Value Reference Range Interpretation Comme nts GONORRHEA, NAAT (test code = 58244) NEGATIVE HIV AB/AG COMBO RFLX [id number] 00:00:00* Test Item Value Reference Range Interpretation Comme nts HIV 1/2 4TH GEN, RFLX CONF ( test code = 3514) NON-REACTIVE [id number] 00:00:00* Test Item Value Reference Range Interpretation Comme nts RPR RESULT (test code = 3501) NON-REACTIVE RPR TITER (test code = 3500) NOT INDIC. TITER [id number] 00:00:00* Test Item Value Reference Range Interpretation Comme nts RPR RESULT (test code = 3501) NON-REACTIVE RPR TITER (test code = 3500) NOT INDIC. TITER VAGINAL PATHOGENS DNA [id number] 00:00:00* Test Item Value Reference Range Interpretation Comme nts BEATA SPECIES (test code = 64717) NEGATIVE G. VAGINALIS (test code = 90830) NEGATIVE T. VAGINALIS (test code = 35888) NEGATIVE VAGINAL PATHOGENS DNA [id number] 00:00:00* Test Item Value Reference Range Interpretation Comme nts BEAAT SPECIES (test code = ) NEGATIVE G. VAGINALIS (test code = 46324) NEGATIVE T. VAGINALIS (test code = 95457) NEGATIVE VAGINAL PATHOGENS DNA [id number] 00:00:00* Test Item Value Reference Range Interpretation Comme nts BEATA SPECIES (test code = 80862) NEGATIVE G. VAGINALIS (test code = 68926) NEGATIVE T. VAGINALIS (test code = 12693) NEGATIVE VAGINAL PATHOGENS DNA [id number] 00:00:00* Test Item Value Reference Range Interpretation Comme nts BEATA SPECIES (test code = 84781) NEGATIVE G. VAGINALIS (test code = 07833) NEGATIVE T. VAGINALIS (test code = 95159) NEGATIVE VAGINAL PATHOGENS DNA [id number] 00:00:00* Test Item Value Reference Range Interpretation Comme nts BEATA SPECIES (test code = 67368) NEGATIVE G. VAGINALIS (test code = 97377) NEGATIVE T. VAGINALIS (test code = 21850) NEGATIVE COMPREHENSIVE METABOLIC [id number] 00:00:00* Test Item Value Reference Range Interpretation Comme nts GLUCOSE (test code = 2217) 94 MG/DL BUN (test code = 2208) 11 MG/DL CREATININE (test code = 2214) 0.63 MG/DL eGFR AMER. (test cod e = 74446) 140 ML/MIN/1.73 eGFR NON- AMER. (test code = 51076) 120 ML/MIN/1.73 CALC BUN/CREAT (test code = [...] code = 2219) 30 U/L COMPREHENSIVE METABOLIC [id number] 00:00:00* Test Item Value Reference Range Interpretation Comme nts GLUCOSE (test code = 2217) 94 MG/DL BUN (test code = 2208) 11 MG/DL CREATININE (test code = 2214) 0.63 MG/DL eGFR AMER. (test cod e = 49498) 140 ML/MIN/1.73 eGFR NON- AMER. (test code = 85799) 120 ML/MIN/1.73 CALC BUN/CREAT (test code = [...] code = 2219) 30 U/L COMPREHENSIVE METABOLIC [id number] 00:00:00* Test Item Value Reference Range Interpretation Comme nts GLUCOSE (test code = 2217) 94 MG/DL BUN (test code = 2208) 11 MG/DL CREATININE (test code = 2214) 0.63 MG/DL eGFR AMER. (test cod e = 53680) 140 ML/MIN/1.73 eGFR NON- AMER. (test code = 45914) 120 ML/MIN/1.73 CALC BUN/CREAT (test code = [...] code = 2219) 30 U/L COMPREHENSIVE METABOLIC [id number] 00:00:00* Test Item Value Reference Range Interpretation Comme nts GLUCOSE (test code = 2217) 94 MG/DL BUN (test code = 2208) 11 MG/DL CREATININE (test code = 2214) 0.63 MG/DL eGFR AMER. (test cod e = 78362) 140 ML/MIN/1.73 eGFR NON- AMER. (test code = 87300) 120 ML/MIN/1.73 CALC BUN/CREAT (test code = [...] code = 2219) 30 U/L COMPREHENSIVE METABOLIC [id number] 00:00:00* Test Item Value Reference Range Interpretation Comme nts GLUCOSE (test code = 2217) 94 MG/DL BUN (test code = 2208) 11 MG/DL CREATININE (test code = 2214) 0.63 MG/DL eGFR AMER. (test cod e = 40357) 140 ML/MIN/1.73 eGFR NON- AMER. (test code = 77372) 120 ML/MIN/1.73 CALC BUN/CREAT (test code = [...] = 2219) 30 U/L PAP TEST, THINPREP, [id number] 00:00:00* Test Item Value Reference Range Interpretation Comme nts SOURCE: (test code = 8001) Cervical/Endocervical SLIDES: (test code = 8011) 1 LMP: (test code = 8021) 2020-09-03 SPECIMEN ADEQUACY: (test code = 92200) (NOTE) INTERPRETATION: (test code = 09090) NILM/NO EPITH. 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 ABNORMALITY;SEE BELOW OTHER COMMENTS: (test code = 8081) (NOTE) NOVELTY PRINTING MACHINE OPERATOR: (test code = 8101) OLIVER Gomez(ASCP)IAC LOCATION: (test code = 89168) (NOTE) CPT: (test code = 8140) (NOTE) PAP TEST, THINPREP, [id number] 00:00:00* Test Item Value Reference Range Interpretation Comme nts SOURCE: (test code = 8001) Cervical/Endocervical SLIDES: (test code = 8011) 1 LMP: (test code = 8021) 2020-09-03 SPECIMEN ADEQUACY: (test code = 78078) (NOTE) INTERPRETATION: (test code = 48526) NILM/NO EPITH. ABNORMALITY;SEE BELOW OTHER COMMENTS: (test code = 8081) (NOTE) NOVELTY PRINTING MACHINE OPERATOR: (test code = 8101) OLIVER Gomez(ASCP)IAC LOCATION: (test code = 85774) (NOTE) CPT: (test code = 8140) (NOTE) PAP TEST, THINPREP, [id number] 00:00:00* Test Item Value Reference Range Interpretation Comme nts SOURCE: (test code = 8001) Cervical/Endocervical SLIDES: (test code = 8011) 1 LMP: (test code = 8021) 2020-09-03 SPECIMEN ADEQUACY: (test code = 28625) (NOTE) INTERPRETATION: (test code = 59471) NILM/NO EPITH. ABNORMALITY;SEE BELOW OTHER COMMENTS: (test code = 8081) (NOTE) NOVELTY PRINTING MACHINE OPERATOR: (test code = 8101) OLIVER Gomez(ASCP)IAC LOCATION: (test code = 28263) (NOTE) CPT: (test code = 8140) (NOTE) HIV AB/AG COMBO RFLX [id number] 00:00:00* Test Item Value Reference Range Interpretation Comme nts HIV 1/2 4TH GEN, RFLX CONF ( test code = 3514) NON-REACTIVE HIV AB/AG COMBO RFLX [id number] 00:00:00* Test Item Value Reference Range Interpretation Comme nts HIV 1/2 4TH GEN, RFLX CONF ( test code = 3514) NON-REACTIVE GC AND CHLAMYDIA AMPLIFIED, [id number] 00:00:00* Test Item Value Reference Range Interpretation Comme nts GONORRHEA, TMA (test code = 39106) NEGATIVE CHLAMYDIA, TMA (test code = 06261) NEGATIVE GC AND CHLAMYDIA AMPLIFIED, [id number] 00:00:00* Test Item Value Reference Range Interpretation Comme nts GONORRHEA, TMA (test code = 26969) NEGATIVE CHLAMYDIA, TMA (test code = 87599) NEGATIVE [id number] 00:00:00* Test Item Value Reference Range Interpretation Comme nts RPR RESULT (test code = 3501) NON-REACTIVE RPR TITER (test code = 3500) NOT INDIC. TITER [id number] 00:00:00* Test Item Value Reference Range Interpretation Comme nts RPR RESULT (test code = 3501) NON-REACTIVE RPR TITER (test code = 3500) NOT INDIC. TITER HIV AB/AG COMBO RFLX [id number] 00:00:00* Test Item Value Reference Range Interpretation Comme nts HIV 1/2 4TH GEN, RFLX CONF ( test code = 3514) NON-REACTIVE [id number] 00:00:00* Test Item Value Reference Range Interpretation Comme nts RPR RESULT (test code = 3501) NON-REACTIVE RPR TITER (test code = 3500) NOT INDIC. TITER [id number] 00:00:00* Test Item Value Reference Range Interpretation Comme nts TESTOSTERONE (test code = 2830) 43 NG/DL [id number] 00:00:00* Test Item Value Reference Range Interpretation Comme nts TESTOSTERONE (test code = 2830) 43 NG/DL HPV HIGH RISK WITH GENOTYPE, [id number] 00:00:00* Test Item Value Reference Range Interpretation Comme nts HPV HIGH RISK INTERP (test c ode = 88908) NEGATIVE HPV 16 (test code = 89868) NEGATIVE HPV 18 (test code = 58145) NEGATIVE HPV, HR, OTHER GENOTYPES (te st code = 28475) NEGATIVE HPV HIGH RISK WITH GENOTYPE, [id number] 00:00:00* Test Item Value Reference Range Interpretation Comme nts HPV HIGH RISK INTERP (test c ode = 30458) NEGATIVE HPV 16 (test code = 90533) NEGATIVE HPV 18 (test code = 90870) NEGATIVE HPV, HR, OTHER GENOTYPES (te st code = 45267) NEGATIVE GC AND CHLAMYDIA AMPLIFIED, [id number] 00:00:00* Test Item Value Reference Range Interpretation Comme nts GONORRHEA, TMA (test code = 61065) NEGATIVE CHLAMYDIA, TMA (test code = 49922) NEGATIVE FSH + LH [id number] 00:00:00* Test Item Value Reference Range Interpretation Comme nts FOLLICLE STIM HORMONE (test code = 2700) 7.0 IU/L LUTEINIZING HORMONE (test co de = 2776) 12.1 IU/L FSH + LH [id number] 00:00:00* Test Item Value Reference Range Interpretation Comme nts FOLLICLE STIM HORMONE (test code = 2700) 7.0 IU/L LUTEINIZING HORMONE (test co de = 2776) 12.1 IU/L [id number] 00:00:00* Test Item Value Reference Range Interpretation Comme nts PROLACTIN (test code = 2800) 12.5 NG/ML [id number] 00:00:00* Test Item Value Reference Range Interpretation Comme nts PROLACTIN (test code = 2800) 12.5 NG/ML [id number] 00:00:00* Test Item Value Reference Range Interpretation Comme nts ESTRADIOL (test code = 2505) 39.3 PG/ML [id number] 00:00:00* Test Item Value Reference Range Interpretation Comme nts ESTRADIOL (test code = 2505) 39.3 PG/ML [id number] 00:00:00* Test Item Value Reference Range Interpretation Comme nts ESTRADIOL (test code = 2505) 39.3 PG/ML HIV AB/AG COMBO RFLX [id number] 00:00:00* Test Item Value Reference Range Interpretation Comme nts HIV 1/2 4TH GEN, RFLX CONF ( test code = 3514) NON-REACTIVE [id number] 00:00:00* Test Item Value Reference Range Interpretation Comme nts RPR RESULT (test code = 3501) NON-REACTIVE RPR TITER (test code = 3500) NOT INDIC. TITER HIV AB/AG COMBO RFLX [id number] 00:00:00* Test Item Value Reference Range Interpretation Comme nts HIV 1/2 4TH GEN, RFLX CONF ( test code = 3514) NON-REACTIVE GC AND CHLAMYDIA AMPLIFIED, [id number] 00:00:00* Test Item Value Reference Range Interpretation Comme nts GONORRHEA, TMA (test code = 64007) NEGATIVE CHLAMYDIA, TMA (test code = 29597) NEGATIVE GC AND CHLAMYDIA AMPLIFIED, [id number] 00:00:00* Test Item Value Reference Range Interpretation Comme nts GONORRHEA, TMA (test code = 66061) NEGATIVE CHLAMYDIA, TMA (test code = 47499) NEGATIVE [id number] 00:00:00* Test Item Value Reference Range Interpretation Comme nts RPR RESULT (test code = 3501) NON-REACTIVE RPR TITER (test code = 3500) NOT INDIC. TITER [id number] 00:00:00* Test Item Value Reference Range Interpretation Comme nts RPR RESULT (test code = 3501) NON-REACTIVE RPR TITER (test code = 3500) NOT INDIC. TITER [id number] 00:00:00* Test Item Value Reference Range Interpretation Comme nts RPR RESULT (test code = 3501) NON-REACTIVE RPR TITER (test code = 3500) NOT INDIC. TITER [id number] 00:00:00* Test Item Value Reference Range Interpretation Comme nts RPR RESULT (test code = 3501) NON-REACTIVE RPR TITER (test code = 3500) NOT INDIC. TITER HPV HIGH RISK WITH GENOTYPE, [id number] 00:00:00* Test Item Value Reference Range Interpretation Comme nts HPV HIGH RISK INTERP (test c ode = 61585) NEGATIVE HPV 16 (test code = 96019) NEGATIVE HPV 18 (test code = 34369) NEGATIVE HPV, HR, OTHER GENOTYPES (te st code = 39984) NEGATIVE HPV HIGH RISK WITH GENOTYPE, [id number] 00:00:00* Test Item Value Reference Range Interpretation Comme nts HPV HIGH RISK INTERP (test c ode = 01690) NEGATIVE HPV 16 (test code = 75786) NEGATIVE HPV 18 (test code = 13046) NEGATIVE HPV, HR, OTHER GENOTYPES (te st code = 21444) NEGATIVE [id number] 00:00:00* Test Item Value Reference Range Interpretation Comme nts TESTOSTERONE (test code = 2830) 43 NG/DL [id number] 00:00:00* Test Item Value Reference Range Interpretation Comme nts TESTOSTERONE (test code = 2830) 43 NG/DL FSH + LH [id number] 00:00:00* Test Item Value Reference Range Interpretation Comme nts FOLLICLE STIM HORMONE (test code = 2700) 7.0 IU/L LUTEINIZING HORMONE (test co de = 2776) 12.1 IU/L FSH + LH [id number] 00:00:00* Test Item Value Reference Range Interpretation Comme nts FOLLICLE STIM HORMONE (test code = 2700) 7.0 IU/L LUTEINIZING HORMONE (test co de = 2776) 12.1 IU/L [id number] 00:00:00* Test Item Value Reference Range Interpretation Comme nts PROLACTIN (test code = 2800) 12.5 NG/ML [id number] 00:00:00* Test Item Value Reference Range Interpretation Comme nts PROLACTIN (test code = 2800) 12.5 NG/ML [id number] 00:00:00* Test Item Value Reference Range Interpretation Comme nts ESTRADIOL (test code = 2505) 39.3 PG/ML [id number] 00:00:00* Test Item Value Reference Range Interpretation Comme nts ESTRADIOL (test code = 2505) 39.3 PG/ML [id number] 00:00:00* Test Item Value Reference Range Interpretation Comme nts ESTRADIOL (test code = 2505) 39.3 PG/ML [id number] 00:00:00* Test Item Value Reference Range Interpretation Comme nts TESTOSTERONE (test code = 2830) 43 NG/DL HPV HIGH RISK WITH GENOTYPE, [id number] 00:00:00* Test Item Value Reference Range Interpretation Comme nts HPV HIGH RISK INTERP (test c ode = 60337) NEGATIVE HPV 16 (test code = 12964) NEGATIVE HPV 18 (test code = 23708) NEGATIVE HPV, HR, OTHER GENOTYPES (te st code = 71083) NEGATIVE FSH + LH [id number] 00:00:00* Test Item Value Reference Range Interpretation Comme nts FOLLICLE STIM HORMONE (test code = 2700) 7.0 IU/L LUTEINIZING HORMONE (test co de = 2776) 12.1 IU/L [id number] 00:00:00* Test Item Value Reference Range Interpretation Comme nts PROLACTIN (test code = 2800) 12.5 NG/ML [id number] 00:00:00* Test Item Value Reference Range Interpretation Comme nts ESTRADIOL (test code = 2505) 39.3 PG/ML [id number] 00:00:00* Test Item Value Reference Range Interpretation Comme nts ESTRADIOL (test code = 2505) 39.3 PG/ML VAGINAL PATHOGENS DNA [id number] 00:00:00* Test Item Value Reference Range Interpretation Comme nts BEATA SPECIES (test code = ) NEGATIVE G. VAGINALIS (test code = 29709) NEGATIVE T. VAGINALIS (test code = 58201) POSITIVE VAGINAL PATHOGENS DNA [id number] 00:00:00* Test Item Value Reference Range Interpretation Comme nts BEATA SPECIES (test code = 07974) NEGATIVE G. VAGINALIS (test code = 23208) NEGATIVE T. VAGINALIS (test code = 08937) POSITIVE VAGINAL PATHOGENS DNA [id number] 00:00:00* Test Item Value Reference Range Interpretation Comme nts BEATA SPECIES (test code = 98189) NEGATIVE G. VAGINALIS (test code = 08761) NEGATIVE T. VAGINALIS (test code = 50055) POSITIVE VAGINAL PATHOGENS DNA [id number] 00:00:00* Test Item Value Reference Range Interpretation Comme nts BEATA SPECIES (test code = 86361) NEGATIVE G. VAGINALIS (test code = 07076) NEGATIVE T. VAGINALIS (test code = 72781) POSITIVE VAGINAL PATHOGENS DNA [id number] 00:00:00* Test Item Value Reference Range Interpretation Comme nts BEATA SPECIES (test code = 71644) NEGATIVE G. VAGINALIS (test code = 73473) NEGATIVE T. VAGINALIS (test code = 00958) POSITIVE History and Physical Notes Date/Time Note Provider Source 2023-03-24 07:55:58 6410-08-48M15:55:58F ormatting of this note is different from the original.TRIAGE HISTORY & PHYSICALIDENTIFYING DATAVladislav Rodas is 32 year old, /White, 39w4d, female with SYLVIA 03/27/2023, by Last Menstrual Period. : 1990MRN: [id number] Care Physician: PATIENT DOES NOT HAVE A [...] EXTRACTION N/A 06/08/2017 Surgeon: Suresh Bosch; Location: [facility] Past Medical History: Diagnosis Date Asthma [...] found for: "RUBG" No results found for: "NIWV5DF" No results found for: "CGBS" HGB Date [...] more detailsMendoza Washburn MD 03/24/2023 8:26 AM 15281-1Ituifsv and physical fxwlBG8337-93-61O64:27:40History and physical noteTXT1.2.840.415455.1.13.104.2.7.2.21042 9|[id number] for patient cqph85580-6Xgxygnc and physical noteLNUT[address] KvgyVyfrocrjeCirvztublSBZK8587483141JGNJSW BCAKGLDHLWNVDOLA8841-10-10R31:27:401.2.840 .395000.1.72.3.15|1.2.840.404178.1.13.104. 2.7.2.727879_[id number] [facility] Procedure Notes Date/Time Note Provider Source 2023-03-24 09:46:31 0541-56-74P45:46:31Associated Order(s): Central Neuraxial Block Central Neuraxial Block Date/Time: 03/24/2023 8:45 AMPerformed by: Antelmo Irwin CRNAAuthorized by: Stalin Blake MD Patient Location: OBEnd Time: 03/24/2023 9:27 AMReason for Block: OB request, Patient request, Labor analgesia, Surgical anesthesia and Post-op pain managementStaff: Anesthesiologist: Stalin Blake MD Resident/DIPPER FISH: Antelmo Irwin CRNA Performed by: anesthesiologistPreanesthetic Checklist: patient identified, [...] air and catheter Guidance with: landmark technique}Epidural/Spinal [place] and/or Catheter: Epidural/Spinal Kit: Alexander Needle Type: [...] patient tolerated procedure well with no complicationsNotes: DIPPER FISH attempted twice unsuccessful; MDA x 1 attempt successful Smooth and atraumatic, (+) Local, (+) STF 97696-2Qlglcznavhzkek procedure vdjpMX5450-85-45F08:50:02Anesthesiolo gy procedure noteTXT1.2.840.512375.1.13.104.2.7.2. 949073|[id number] for patient msqp90423-9Qsdfykmj operation noteLNNACR-NURSE OVENS SUPERVISOR,CERTIFIED REGISTERED NURSE ANESTHETISTNACR-NURSE OVENS SUPERVISOR,CERTIFIED REGISTERED NURSE ANESTHETIST19 [address] [id number] AFVLXZNJNJATIYEPQNRIY3330-30-04E66:50 :021.2.840.466228.1.72.3.15|1.2.840.1 [id number] 3 NACR-NURSE OVENS SUPERVISOR,CERTIF IED REGISTERED NURSE OVENS SUPERVISOR [facility] Progress Notes Date/Time Note Provider Source 2023-03-15 15:00:00 1333-86-42E10:00:00F ormatting of this note is different from [...] in labor.-- labor warnings reviewed--All questions answered 64296-9Mvxshhbf ypsgKP8464-55-17N78:23:42Progress noteTXT1.2.840.002276.1.13.104.2.7.2.04668 9|[id number] for patient careUT[address] Vuq[id number] CMEIXAGOPEODDHNT1589-24-18B25:23:421.2.840 .742779.1.72.3.15|1.2.840.069702.1.13.104. 2.7.2.727879_[id number] [facility] Notes Date/Time Note Provider Source 2023-09-29 12:18:05 7848-68-56N49:18:05 PT D/C home. GCS15, VS stable. Given D/C paperwork. Pt ambulatory at time of discharge. Pt educated on med usage, follow up care, s/s worsening condition, need for hydration. Pt verbalized understanding.Pt ambulated from ED in NAD. 28770-3Drujlcrov department YlrzSK6385-95-57J19:18:46[facility] NoteTXT1.2.840.945098.1.13.104.2.7.2.7 06539|[id number] for patient klnq24222-8UmsmAUJODCYEYXZAvyknfvfj C-CDA narrative textUT[address] Mtbo[id number] ROFESUQCQFOZBRLQBLCF8616-46-58U88:18:4 61.2.840.016283.1.72.3.15|1.2.840.1143 50.1.13.104.2.7.2.727879_[id number] [facility] 2023-09-29 11:05:56 5487-66-44M36:05:56 Pt presents with headache, congestion, runny nose, [...] and I did"No meds taken PTALMP: Sept 26025-0Lmawxlbuw department Triage zgdrOD8912-05-35U96:11:56[facility] Triage noteTXT1.2.840.113066.1.13.104.2.7.2.7 66998|[id number] for patient ixly51244-1Wqotzixsk department NoteLNNARRATIVEFormatted C-CDA narrative [id number] E Linkes RNUT[address] LuwhRrh[id number] ABDDWANKUWCLHPSXCTWU2468-72-89O86:11:5 61.2.840.146141.1.72.3.15|1.2.840.1143 50.1.13.104.2.7.2.727879_[id number] Nikki Morillo RN [facility] 2023-09-29 10:46:00 0238-54-14X11:46:00 [facility] Emergency Department NoteDemographicsPatient Name: Vladislav Richmondte of : 1990 33 year oldTreatment Room: [place] [address]Medical Record Number: [id number] Care Physician: Giulia Yi [facility] CarePatient Escorted by: Self [9]Mode of Arrival: Personal means [1]EMS Treatment Prior to ED Arrival:ED EventsDate/Time Event User Cveyxesk41/08/24 1110 Medical Screening Begins HOSSEIN GARCIA MD [...] 09/29/2023 11:09Chief ComplaintPatient presents withCoughCongestionHistory of present xwvyqxdNTH26 yo woman comes to the ED complaining [...] 06/08/2017TOOTH EXTRACTION N/A 06/08/2017Surgeon: Suresh Bosch; [facility]icationsMedications - No data to displayAllergiesNo Known [...] systems is limited by:History limited: None.Medical Decision Tilhjx23 yo woman comes to the ED complaining [...] before final disposition and determined to be stable.[id number]. Upper respiratory tract infection, unspecified type J06.9Disposition [...] medications on fileFuture AppointmentsToday Giulia Quintero FNP [facility], [facility] 1 month Mendoza Washburn MD [facility] [employer] Dictation Software is used frequently and may produce errors. Promptly contact for obvious discrepancies.Hossein Garcia MD, FACEP, FAAEMAssistant Professor of Emergency and Internal MedicineAlbany Medical Center#[id number] Garcia MD09/29/23 1144 48068-2Uwotcirnj Emergency department YlgyFL7470-20-99L57:44:42Physician Emergency department NoteTXT1.2.840.701592.1.13.104.2.7.2.7 28062|[id number] for patient yduj49363-0Zqovotrdx department NoteLNNARRATIVEFormatted C-CDA narrative text19 [address]lsen [id number] DTEGYEBMOAKRSTIUWRRE1251-19-62O53:44:4 21.2.840.670174.1.72.3.15|1.2.840.1143 50.1.13.104.2.7.2.727879_[id number] [facility] 2023-04-28 08:57:13 9402-34-51B79:57:13 Patient states she will pick letter up at [facility]. 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 Camilo Mercer RN 04/28/2023 8:57 AM 11875-5Tmzduurnk encounter HgmsIS5479-00-20O85:57:38Telephone encounter NoteTXT1.2.840.666483.1.13.104.2.7.2.7 43042|[id number] for patient ryds95316-2YfheLI671542887Vhtceul Collins RN[id number] NLHHDMSIYJIUSUNDQREK2308-07-09U05:57:3 81.2.840.775015.1.72.3.15|1.2.840.1143 50.1.13.104.2.7.2.727879_[id number] Camilo Mercer RN [facility] 2023-04-27 17:14:23 5019-60-63Z86:14:23 Vladislav Rodas is a 32 year old femalePatient calling to request a letter to be able to lift between 10 - 50 pounds for work so there are no limitations. Since she had a baby Aug 3rd 74450-4Cwpasjlid encounter AkmlEN4036-58-83G26:17:08Telephone encounter NoteTXT1.2.840.591019.1.13.104.2.7.2.7 90174|[id number] for patient gcgx42064-4EosuUY579454735Xpgpd Judy[id number] ZQERZLRMUHPBCXEFTJDP3003-30-84O33:17:0 81.2.840.408491.1.72.3.15|1.2.840.1143 50.1.13.104.2.7.2.727879_[id number] Manolo Chung [facility] 2023-03-30 14:01:28 3069-87-71A84:01:28 Patient walked in to clinic requesting return to work letter. Dr. Washburn approved patient to return to work under the restriction of not lifting more than 20 pounds. Return to work letter handed to patient in clinic. Camilo Mercer RN 03/30/2023 2:07 PM 33356-0Uwfbznvem encounter NkuzLN5960-50-13H04:08:15Telephone encounter NoteTXT1.2.840.790507.1.13.104.2.7.2.7 11115|[id number] for patient zycv94440-6XwzkFH751269864Tciedje Collins RNUT[address] [id number] UBUCDJFHNKNHKUXXOKVE3804-26-77A47:08:1 51.2.840.195578.1.72.3.15|1.2.840.1143 50.1.13.104.2.7.2.727879_[id number] Camilo Mercer RN [facility] 2023-03-25 19:49:54 3185-65-65C03:49:54 Problem: Falls, Risk ofGoal: Absence of fallsOutcome: [...] - IneffectiveGoal: Effective breast-feedingOutcome: Progressing as expected 77263-6Abkd of care hqlyGY2927-44-20O66:50:01Plan of care noteTXT1.2.840.619324.1.13.104.2.7.2.7 98419|[id number] for patient avgp89604-4GoaiCA417425979Fgzak Iddrisu RN[id number] XHAPBEBOEEWBZESMCUSC5791-00-00E17:50:0 11.2.840.865083.1.72.3.15|1.2.840.1143 50.1.13.104.2.7.2.727879_[id number] Quinton Gonzalez RN [facility] 2023-03-25 18:42:30 2945-70-21S02:42:30 Problem: Falls, Risk ofGoal: Absence of fallsOutcome: [...] - IneffectiveGoal: Effective breast-feedingOutcome: Progressing as expected 95825-8Yucx of care nhzrCF4697-93-27S46:42:36Plan of care noteTXT1.2.840.819107.1.13.104.2.7.2.7 90471|[id number] for patient [id number] L Blaha RNUT[address] ZenyVzigszwcrCbvuhcmguFPHN8589893885AB FXXWKNPDBGEGHCHIISOV3403-40-23P18:42:3 61.2.840.853322.1.72.3.15|1.2.840.1143 50.1.13.104.2.7.2.727879_[id number] Supriya Peña RN [facility] 2023-03-25 01:45:00 1322-09-38P66:45:00Summary: initial consult This note was copied from [...] verbalized understanding.Mom instructed on how to contact Student Life Vice President for assistance with feedings or to answer questions while in the hospital. Mom verbalized understanding.YENNY Wayne, RN, IBCLC 31612-5Qnapigjvfh LyuwCU6319-58-24C10:11:41Obstetrics NoteTXT1.2.840.121198.1.13.104.2.7.2.7 86724|[id number] for patient [id number] K Randolph RN[address] QjxiOkfyeskmjDpclsxpdcCOVF6016958445NN GTEZOIACLRYVTMCWXBDI5608-87-25G66:11:4 11.2.840.453970.1.72.3.15|1.2.840.1143 50.1.13.104.2.7.2.727879_[id number] Attila Richards RN [facility] 2023-03-25 00:00:36 1522-47-10F47:00:36 Problem: Intrapartum process (including labor pain)Goal: Reduction [...] by Quinton Gonzalez RNOutcome: Progressing as expected 45591-4Tjjn of care bvqiBV7840-86-73V93:00:39Plan of care noteTXT1.2.840.208053.1.13.104.2.7.2.7 45345|[id number] for patient hmkf06871-8QerrCOXKZBPQFO[id number] UYDPCWDGJNLLCAZNGTBC1634-94-67K05:00:3 91.2.840.809149.1.72.3.15|1.2.840.1143 50.1.13.104.2.7.2.727879_[id number] [facility] 2023-03-24 23:59:12 3500-89-51P00:59:12 Problem: Intrapartum process (including labor pain)Goal: Adequate [...] as expectedGoal: Mood stableOutcome: Progressing as expected 49875-9Zgks of care cnfhZG0601-62-34X28:59:25Plan of care noteTXT1.2.840.856455.1.13.104.2.7.2.7 45965|[id number] for patient tacl12665-5PgmbXTOOLPOKRL[id number] LEAUZKQNLGYIRWPQBEWE5978-55-30Q20:59:2 51.2.840.996427.1.72.3.15|1.2.840.1143 50.1.13.104.2.7.2.727879_[id number] [facility] 2023-03-24 21:36:30 6797-44-21S23:36:30 Patient: Vladislav Rodas Procedure Summary Date: 03/24/23 [...] No apparent complicationsStacesofía Mace MD 03/24/2023 21:36 28700-6Cebbjamckxjmof Postoperative evaluation and management yddwQH8551-72-62S08:36:42Anesthesiolog y Postoperative evaluation and management noteTXT1.2.840.788678.1.13.104.2.7.2.7 57885|[id number] for patient qrbq67623-8Fjlmrrqd operation noteLNAN-ANESTHESIOLOGY ANESTHESIOLOGISTAN-ANESTHESIOLOGY ANESTHESIOLOGIST[address] WmgiIndhkjsbrBtkhjcoopPJLJ7935655477SM DEZOGGVTYIOMVETFUYDG9810-20-49E50:36:4 21.2.840.935653.1.72.3.15|1.2.840.1143 50.1.13.104.2.7.2.727879_[id number] AN-ANESTHESIOLOGY ANESTHESIOLOGIST [facility] 2023-03-24 20:52:03 5599-73-93Y61:52:03 DELIVERY BY VACUUM-ASSISTED VAGINAL DELIVERYDelivery Date: 03/24/2023 [...] cord was double clamped, cut and the was handed off the field to the [...] 9 Mendoza Washburn MD 03/24/2023 8:53 PM 77275-0Lhgle and delivery summary qiusTR9188-99-71N57:24:18Labor and delivery summary noteTXT1.2.840.329822.1.13.104.2.7.2.7 17347|[id number] for patient acun02686-8MflmAHBJRCCKIX[address] SxveUzqsjbgtcEiffcuhpdSYRP0562129132RM HZCNINWAQXPLYVKAMPMN3922-33-44C33:24:1 81.2.840.954664.1.72.3.15|1.2.840.1143 50.1.13.104.2.7.2.727879_[id number] [facility] 2023-03-24 08:54:28 8972-81-39T82:54:28 Name/ MRN / Age / Gender:Vladislav Rodas, [id number] year old female BMI:Estimated body mass index [...] surgeons listed *Procedure: CENTRAL NEURAXIAL BLOCKOR Location: [facility] OUT OF OR - OR LOCATIONAnesthesia Preop Eval (physical exam) Anesthesia Preop: Xtag-py-QygoPZR Status VerifiedPONV Risk Factors: femaleAnesthesia HistoryAnesthesia History [...] to surgery. Hold on DOS. Phentermine: Alert [facility] anesthesiologistSGLT2 Inhibitors: "gliflozins" to be held [...] EXTRACTION N/A 06/08/2017 Surgeon: Suresh Bosch; Location: [facility] Anesthesia Physical ExamGeneralno apparent distress and [...] routine analgesia & antiemeticsRecovery Plan: LDRAdditional comments: 10571-1Uxxisesnycwuxv Preoperative evaluation and management psdeOF1340-16-71N66:55:35Anesthesiolog y Preoperative evaluation and management noteTXT1.2.840.374259.1.13.104.2.7.2.7 57138|[id number] for patient ytgi78673-2Znlrgoem operation noteLNAN-ANESTHESIOLOGY ANESTHESIOLOGISTAN-ANESTHESIOLOGY ANESTHESIOLOGIST[id number] EQRHCFNDABQPGBXBDGYN8035-41-15D88:55:3 51.2.840.924598.1.72.3.15|1.2.840.1143 50.1.13.104.2.7.2.727879_[id number] AN-ANESTHESIOLOGY ANESTHESIOLOGIST [facility] 2023-03-24 08:50:45 9706-87-17O53:50:45 Problem: Intrapartum process (including labor pain)Goal: Absence [...] as expectedGoal: Mood stableOutcome: Progressing as expected 28665-8Mpdh of care jctzPK2631-83-69O27:50:52Plan of care noteTXT1.2.840.884774.1.13.104.2.7.2.7 91318|[id number] for patient rkwp48741-0UeanOA130247386Aciomv April Tomia Sabuero RNUT[id number] QEFMKUPDFPBMMHBILDWZ4007-74-40V96:50:5 21.2.840.891517.1.72.3.15|1.2.840.1143 50.1.13.104.2.7.2.727879_[id number] Daphney Finley RN [facility] 2023-03-24 07:01:16 1522-82-54U30:01:16 Name/ MRN / Age / Gender:Vladislav Rodas, [id number] year old female BMI:Estimated body mass index [...] No surgeons listed *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 Hold on DOS. Phentermine: Alert [facility] anesthesiologistSGLT2 Inhibitors: "gliflozins" to be held [...] EXTRACTION N/A 06/08/2017 Surgeon: Suresh Bosch; Location: [facility] Physical ExamAnesthesia Plan ASA Status: 3 65875-1Dggtltebkqvdel Preoperative evaluation and management zgeuEN7439-86-29Q37:06:29Anesthesiolog y Preoperative evaluation and management noteTXT1.2.840.965876.1.13.104.2.7.2.7 93233|[id number] for patient rzfj88073-1Qgbqfsmz operation noteLNNACR-NURSE OVENS SUPERVISOR,CERTIFIED REGISTERED NURSE ANESTHETISTNACR-NURSE OVENS SUPERVISOR,CERTIFIED REGISTERED NURSE ANESTHETIST[id number] DLUUZNJYUJFHISOOMBLL4891-08-65Z05:06:2 91.2.840.068398.1.72.3.15|1.2.840.1143 50.1.13.104.2.7.2.727879_[id number] NACR-NURSE OVENS SUPERVISOR,CERTIFIED REGISTERED NURSE OVENS SUPERVISOR [facility] 2023-03-24 03:41:27 0229-39-65K92:41:27 Problem: Intrapartum process (including labor pain)Goal: Absence [...] as expectedGoal: Mood stableOutcome: Progressing as expected 96500-1Zshv of care qqysOL3870-64-76V68:41:32Plan of care noteTXT1.2.840.508148.1.13.104.2.7.2.7 84215|[id number] for patient mxwq50349-7ZnnvUFPQQRPSFV[address] RxtxKryfokxfpGxmbwhprqDSXL8943301223QU WQNLFXOKMTBQQIVQPVXQ6722-82-55P63:41:3 21.2.840.813787.1.72.3.15|1.2.840.1143 50.1.13.104.2.7.2.727879_[id number] [facility] 2023-03-22 15:00:00 1717-22-01O03:00:00 Images from the original note were not included.Spoke with BB, they will do a TS day of.Venipuncture collection performed by clean technique on the right anticubitus. Total of 1 attempts were made. Slight pressure and a bandage/dressing were applied to the site(s). The patient experienced no complications. The following specimens were processed according to instructions and sent to [facility] laboratories per lab order on 03/22/2023: LT BLUE SST 2 RED 1 LAV 1 PPT DK GREEN (LiHep) DK GREEN (SodH) FAN DK BLUE (K2) DK BLUE (S) ACD Blood Culture NIPT/NTD 60297-9Woefj SydoYC2627-21-02Q88:31:53Nurse NoteTXT1.2.840.745797.1.13.104.2.7.2.7 61267|[id number] for patient nokv19851-6Kyrpt Note[id number] YUDQBPDWZOSBRJURHRPA1965-96-62X50:31:5 31.2.840.531268.1.72.3.15|1.2.840.1143 50.1.13.104.2.7.2.727879_[id number] [facility] 2023-03-22 14:15:00 8514-56-60W29:15:00 Age: 32 year oldGA: 39w2d -Irregular contractions: SVE /ballotable. Cephalic confirmed on ultrasound today.-Desires induction at 39 weeks. Tentatively plan for 03/24/2023 unless clinically indicated otherwise- Daily kick counts and labor precautions given- follow-up in 5 to 6 weeks for visit 24621-3Cdeskxhs dbotIR2115-73-09C39:15:48Progress noteTXT1.2.840.412408.1.13.104.2.7.2.7 28262|[id number] for patient mydg29327-2BbnpYUFBYRAXJD[id number] MUVCISZJMTTKALRYRPBC3411-37-24I53:15:4 81.2.840.009108.1.72.3.15|1.2.840.1143 50.1.13.104.2.7.2.727879_[id number] [facility]
[2024-02-16 22:26] LABS: Absolute Basophils 0.1 K/uL (0-0.5); Absolute Eosinophils 0.2 K/uL (0-0.5); Absolute Lymphocytes (CBC) 2.9 K/uL (0.7-4.9); Absolute Monocytes 0.8 K/uL (0.1-1.3); Absolute Neutrophil 4.5 K/uL (1.8-8.0); Basophils % 0.6 % (0-1.3); Eosinophils % 2.7 % (0-4.4); Hematocrit 39.3 % (36.0-45.0); Lymphocytes % 34.2 % (15.3-44.8); MCH 26.8 pg (27.0-35.0); MCHC 33.2 g/dL (32.0-36.0); MCV 80.5 fL (80-100); MPV 7.4 fL (7.6-11.3); Monocytes % 9.3 % (3.3-12.3); Neutrophils % 53.2 % (41.7-73.7); Platelets 394 thou/uL (152-406); RBC Red Blood Cell Count 4.88 M/uL (3.86-4.86); Red Cell Distribution Width 13.9 % (12.1-15.2)
[2024-02-16 22:29] LABS: PT Prothrombin Time 11.2 SECONDS (9.4-12.5); PTT, Activated Partial Thromb 30.1 SECONDS (24.3-36.9); Protime INR 1.02
[2024-02-16] MEDS ORDERED: NA CHLORIDE 0.9% 1,000 ML ONE (22:32)
[2024-02-16 22:41] LABS: ALT/SGPT 32 U/L (13-56); AST/SGOT 15 U/L (15-37); Albumin 3.8 g/dL (3.4-5.0); Alkaline Phosphatase 112 U/L (45-117); Anion Gap 7.9 mEq/L (5.0-15.0); BUN Blood Urea Nitrogen 10 mg/dL (7-18); Bicarbonate 27 mEq/L (21-32); Bilirubin Total 0.4 mg/dL (0.2-1.0); Globulin 3.8 g/dL (2.3-3.5); Glomerular Filtration Rate 109 ml/min (=/>90); Glucose Level 91 mg/dL (74-106); Magnesium 2.5 mg/dL (1.6-2.4); Potassium 3.9 mEq/L (3.5-5.1); Protein, Total 7.6 g/dL (6.4-8.2); Sodium Level 139 mEq/L (136-145)
[2024-02-16 22:46] LABS: Bilirubin Direct < 0.2 mg/dL (0-0.2); Bilirubin Indirect, Calculated 0.2 mg/dL (0.2-0.8); Troponin High Sensitivity < 3.0 pg/mL (<58.9)
--- NOTE | 2024-02-16 23:47 | EDPHYS ---
Physician Documentation [facility] Name: Carlyn Rodas Age: 33 yrs Sex: Female : 1990 Arrival Date: 02/16/2024 Time: 21:43 Bed 14 Private MD: ED Physician Schuyler Barajas HPI: 02/15 23:56 This 33 yrs old Female presents to ER via Ambulatory with complaints of Passed kb Out Prior To Arrival. 23:56 Pt is a 33 year old female who had a near syncopal episode while walking to work this kb evening. 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 States she got hotter than normal when walking to work tonight, became lightheaded in the [employer] parking lot, stumbled and lowered herself to the ground. Denies hitting head, loc. States the cart attendants carried her inside where she was able to cool off. States she is feeling back to normal now. 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 - Infectious Disease History:: Denies. - Social history:: Smoking status: Patient denies any tobacco usage or history of. ROS: 22:28 Constitutional: As per HPI kb Exam: 22:28 Constitutional: This is a well developed, well nourished patient who is awake, alert, kb and in no acute distress. Head/Face: Normocephalic, atraumatic. Eyes: Pupils equal round and reactive to light, extra-ocular motions intact. Lids and lashes normal. Conjunctiva and sclera are non-icteric and not injected. Cornea within normal limits. Periorbital areas with no swelling, redness, or edema. ENT: Moist Mucous membranes Cardiovascular: Regular rate Respiratory: Respirations even and unlabored. No increased work of breathing. Talking in full sentences Abdomen/GI: Soft, non-tender. No distention Skin: Warm, dry with normal turgor. Normal color. MS/ Extremity: Pulses equal, no cyanosis. Neurovascular intact. Full, normal range of motion. Neuro: Awake and alert, GCS 15, oriented to person, place, time, and situation. Moves all extremities. Normal gait. 22:28 ECG was reviewed by the Attending Physician. Vital Signs: 21:49 BP 130 / 76; Pulse 93; Resp 18; Temp 98(TE); Pulse Ox 99% ; Weight 74.84 kg; Height 4 cm10 ft. 11 in. ; Pain 6/10; 22:15 BP 130 / 83 Supine; Pulse 82; pc2 22:15 BP 127 / 74 Sitting; Pulse 87; pc2 22:15 BP 122 / 78 Standing; Pulse 98; pc2 23:49 BP 127 / 72; Pulse 76; Resp 18; Pulse Ox 97% ; pc2 21:49 Body Mass Index 33.33 (74.84 kg, 149.86 cm) cm10 21:49 Pain Scale: Adult cm10 MDM: 21:47 Patient medically screened. kb 22:28 Data reviewed: vital signs, nurses notes. kb 23:46 Differential Diagnosis: cardiac arrhythmia, vasovagal episode, dehydration, near kb syncope. Counseling: I had a detailed discussion with the patient and/or guardian regarding the historical points, exam findings, and any diagnostic results supporting the discharge/admit diagnosis, lab results, the need for outpatient follow up, a family practitioner, to return to the emergency department if symptoms worsen or persist or if there are any questions or concerns that arise at home. 02/15 21:56 Order name: Basic Metabolic Panel; Complete Time: 22:51 kb 02/15 21:56 Order name: CBC with Diff; Complete Time: 22:45 kb 02/15 21:56 Order name: Hepatic Function; Complete Time: 22:51 kb 02/15 21:56 Order name: Magnesium; Complete Time: 22:51 kb 02/15 21:56 Order name: Protime (+inr); Complete Time: 22:30 kb 02/15 21:56 Order name: Ptt, Activated; Complete Time: 22:30 kb 02/15 21:56 Order name: Troponin High Sensitivity; Complete Time: 22:51 kb 02/15 21:56 Order name: EKG; Complete Time: 21:56 kb 02/15 21:56 Order name: Cardiac monitoring; Complete Time: 22:27 kb 02/15 21:56 Order name: EKG - Nurse/Tech; Complete Time: 22:27 kb 02/15 21:56 Order name: IV Saline Lock; Complete Time: 22:17 kb 02/15 21:56 Order name: Labs collected and sent; Complete Time: 22:17 kb 02/15 21:56 Order name: NPO; Complete Time: 22:18 kb 02/15 21:56 Order name: O2 Per Protocol; Complete Time: 22:18 kb 02/15 21:56 Order name: O2 Sat Monitoring; Complete Time: 22:18 kb 02/15 21:56 Order name: Orthostatics; Complete Time: 22:18 kb EC:28 Rate is 90 beats/min. Rhythm is regular. QRS [place] is Normal. MI interval is normal at kb 150 msec. QRS interval is normal at 72 msec. QT interval is normal at 413 msec. Administered Medications: 22:35 Drug: NS 0.9% IV 1000 ml IV at 1000 ml once Route: IV; Rate: 1000 ml; Site: left pc2 antecubital; 23:51 Follow up: IV Status: Completed infusion; IV Intake: 1000ml pc2 Disposition Summary: 02/16/24 23:46 Discharge Ordered Notes: Location: Home kb Condition: Stable kb Diagnosis - Syncope Near kb - Volume depletion, unspecified kb Followup: kb - With: Emergency Department - When: As needed - Reason: Worsening of condition Followup: kb - With: Private Physician - When: 2 - 3 days - Reason: Recheck today's complaints, Continuance of care, Re-evaluation by your physician Discharge Instructions: - Discharge Summary Sheet kb - Near-Syncope, Mxcp-vz-Jbak kb - Dehydration, Adult, Zvdk-pt-Zdvt kb - Form - Return To Work pc2 Forms: - Medication Reconciliation Form kb - Antibiotic Education kb - Prescription Opioid Use kb - Patient Portal Instructions kb - Leadership Thank You Letter kb Signatures: Dispatcher [employer] EDAR Stacia Rowan, UTILITY AGENT-C UTILITY AGENT-Christina Syed, RN RN cm10 Summer mars, RN RN pc2 Corrections: (The following items were deleted from the chart) 21:56 21:56 BASIC METABOLIC PANEL+C.LAB.BRZ ordered. EDMS EDMS 21:56 21:56 CBC+H.LAB.BRZ ordered. EDMS EDMS 21:56 21:56 HEPATIC FUNCTION+C.LAB.BRZ ordered. EDMS EDMS 21:56 21:56 MAGNESIUM+C.LAB.BRZ ordered. EDMS EDMS 21:56 21:56 Test, Urine+UC.LAB.BRZ ordered. EDMS EDMS : 21:56 PROTIME (+INR)+COAG.LAB.BRZ ordered. EDMS EDMS : 21:56 PTT, ACTIVATED+COAG.LAB.BRZ ordered. EDMS EDMS : 21:56 Troponin High Sensitivity+C.LAB.BRZ ordered. EDMS EDMS : 21:56 Urinalysis+U.LAB.BRZ ordered. EDMS EDMS
--- NOTE | 2024-02-16 23:47 | ER ---
Nurse's Notes [facility] Name: Carlyn Rodas Age: 33 yrs Sex: Female : 1990 Arrival Date: 02/16/2024 Time: 21:43 Bed 14 Private MD: Diagnosis: Syncope Near;Volume depletion, unspecified Presentation: 02/15 21:49 Chief complaint: Patient states: Was walking to work today this evening and [facility] Pt states that they helped her to the and she woke up. Pt reports headache and denies chest pain or shortness of breath. PT A\T\Ox4 in triage. Coronavirus screen: Client denies travel out of the [place] in the last 14 days. At this time, the client does not indicate any symptoms associated with coronavirus-19. Ebola Screen: Patient denies travel to an Ebola-affected area in the 21 days before illness onset. No symptoms or risks identified at this time. Initial Sepsis Screen: Does the patient meet any 2 criteria? HR > 90 bpm. Does the patient have a suspected source of infection? No. Patient's initial sepsis screen is negative. Risk Assessment: Do you want to hurt yourself or someone else? Patient reports no desire to harm self or others. Onset of symptoms was February 16, 2024. 21:49 Method Of Arrival: Ambulatory cm10 21:49 Acuity: FERNANDO 3 cm10 Triage Assessment: 21:52 General: Appears in no apparent distress. comfortable, Behavior is calm, cooperative. cm10 Pain: Complains of pain in head Pain does not radiate. Pain currently is 6 out of 10 on a pain scale. Neuro: No deficits noted. Level of Consciousness is awake, alert, obeys commands, Oriented to person, place, time, situation, Reports a syncopal episode. Cardiovascular: No deficits noted. Patient's skin is warm and dry. Respiratory: No deficits noted. Airway is patent Respiratory effort is even, unlabored, Respiratory pattern is regular, symmetrical. Musculoskeletal: Range of motion: intact in all extremities. 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 - Infectious Disease History:: Denies. - Social history:: Smoking status: Patient denies any tobacco usage or history of. Screenin:16 [facility] ED Fall Risk Assessment (Adult) History of falling in the last 3 months, pc2 including since admission No falls in past 3 months (0 pts) Confusion or Disorientation No (0 pts) Intoxicated or Sedated No (0 pts) Impaired Gait No (0 pts) Mobility Assist Device Used No (0 pt) Altered Elimination No (0 pt) Score/Fall Risk Level 0 - 2 = Low Risk Oriented to surroundings, Hourly rounding (assess needs \T\ fall precautionary measures) done. Abuse screen: Denies threats or abuse. Denies injuries from another. Nutritional screening: No deficits noted. Tuberculosis screening: No symptoms or risk factors identified. Assessment: 22:19 General: Appears in no apparent distress. well groomed, Behavior is calm, cooperative. pc2 Neuro: Level of Consciousness is awake, alert, obeys commands, Oriented to person, place, time, situation, Reports a syncopal episode. Cardiovascular: Patient's skin is warm and dry. Rhythm is sinus rhythm. Respiratory: No deficits noted. Airway is patent Respiratory effort is even, unlabored, Respiratory pattern is regular, symmetrical. GI: No deficits noted. : No signs and/or symptoms were reported regarding the genitourinary system. EENT: No signs and/or symptoms were reported regarding the EENT system. Derm: No signs and/or symptoms reported regarding the dermatologic system. Musculoskeletal: No signs and/or symptoms reported regarding the musculoskeletal system. Vital Signs: 21:49 BP 130 / 76; Pulse 93; Resp 18; Temp 98(TE); Pulse Ox 99% ; Weight 74.84 kg; Height 4 cm10 ft. 11 in. ; Pain 6/10; 22:15 BP 130 / 83 Supine; Pulse 82; pc2 22:15 BP 127 / 74 Sitting; Pulse 87; pc2 22:15 BP 122 / 78 Standing; Pulse 98; pc2 23:49 BP 127 / 72; Pulse 76; Resp 18; Pulse Ox 97% ; pc2 21:49 Body Mass Index 33.33 (74.84 kg, 149.86 cm) cm10 21:49 Pain Scale: Adult cm10 ED Course: 21:45 Patient arrived in ED. mr 21:47 Stacia Rowan FNP-C is PHCP. kb 21:47 Schuyler Barajas MD is Attending Physician. kb 21:51 Triage completed. cm10 21:51 Arm band placed on Patient placed in an exam room, on a stretcher. cm10 22:14 Summer mars, RN is Primary Nurse. pc2 22:16 Inserted saline lock: 20 gauge in left antecubital area, using aseptic technique. Blood rc3 collected. 22:17 Patient has correct armband on for positive identification. Bed in low position. Call pc2 light in reach. Side rails up X2. Provided Education on: POC and timeframe. 22:17 CBC with Diff Sent. rc3 22:17 Hepatic Function Sent. rc3 22:17 Magnesium Sent. rc3 22:17 Protime (+inr) Sent. rc3 22:17 Ptt, Activated Sent. rc3 22:17 Troponin High Sensitivity Sent. rc3 23:50 No provider procedures requiring assistance completed. IV discontinued, intact, pc2 bleeding controlled, No redness/swelling at site. Pressure dressing applied. Administered Medications: 22:35 Drug: NS 0.9% IV 1000 ml IV at 1000 ml once Route: IV; Rate: 1000 ml; Site: left pc2 antecubital; 23:51 Follow up: IV Status: Completed infusion; IV Intake: 1000ml pc2 Medication: 22:17 VIS not applicable for this client. pc2 Intake: 23:51 IV: 1000ml; Total: 1000ml. pc2 Outcome: 23:46 Discharge ordered by MD. kb 23:51 Discharged to home ambulatory, pc2 23:51 Condition: stable 23:51 Discharge instructions given to patient, Instructed on discharge instructions, Demonstrated understanding of instructions, follow-up care, 02/16 00:16 Patient left the ED. pc2 Signatures: Stacia Rowan, TRANSIT MECHANIC-C TRANSIT MECHANIC-Ckb Frida Curtis, Reg Reg Christina Toure, RN RN cm10 Karen Diaz rc3 Summer mars, RN RN pc2 Corrections: (The following items were deleted from the chart) 02/15 22:26 22:19 Cardiovascular: Patient's skin is warm and dry. pc2 pc2
[2024-02-17 01:02] VITALS: BP 127/72; TEMP 98; O2SAT 97
--- NOTE | 2024-02-18 14:08 | EKG ---
Test Date: 2024-02-16 Test Time: 22:23:31 Receiving Specialist: HANNAH MEASUREMENT RESULTS: Intervals: Rate: 90 CT: 150 QRSD: 72 QT: 338 QTc: 413 [place]: P: 61 CT: 150 QRS: 69 T: 37 INTERPRETIVE STATEMENTS: Normal sinus rhythm Normal ECG No previous ECG available for comparison Electronically Signed On 02-18-24 14:06:15 CDT by Karl Nichole
== END 2024-02-17 00:16 | disposition home or self-care (01) ==
LOC: ER 21:43
DX: E86.9 Volume depletion, unspecified (principal)
CPT/HCPCS: 93005; 85025; 80048; 36415; 83735; 85610; 80076; 85730; 84484; 96360; 99284; J7030

== ENCOUNTER 2024-05-22 11:19 | Emergency (ER) | payer OTHER ==
--- OUTSIDE RECORDS SUMMARY | 2024-05-22 11:25 | XMS REPORT | Continuity of Care Document ---
Author Name Unknown Address [address] [facility] [place] [address] [facility] [address] [facility] [address] [place] [address] Care Team Providers Care Agriculture Manager Name Role Phone Renetta SQUIRES, [facility] Primary Care Physician [phone] MENDOZA WASHBURN Attending Clinician Unavailable GIULIA QUINTERO Attending Clinician Unavailable HOSSEIN GARCIA Attending Clinician Unavailable Hossein Garcia MD Attending Clinician [phone] Giulia Hernandes Attending Clinician [phone] Mendoza Washburn MD Attending Clinician [phone] Doctor Unassigned, Tatum Attending Clinician U Stalin Aly MD Attending Clinicia n Beckie Mace MD Attending Clinician [phone] Antelmo Irwin CRNA Attending Clinician [phone] Pob, [facility] Main Attending Clinician UnavailSADIA Aviles Attending Clinician SADIA Howell Attending Clinician Rochelle johns 2, [facility] Attending Clinician Unavailable Aminata ROSALES, Indira Attending Clinician Ultrasound, Ang-Mfm Attending Clinician Unavaila shahbaz Samayoa MD, Joiner Attending Clinician + BURGOS CHAIM, JOINER Attending Clinician Unaviri bindu LYNNKIRAINDIRA ARCOS Attending Clinician Unavaila ble VIVIANE URIARTE Attending Clinician Unavailable Viviane Uriarte MD Attending Clinician [phone] Kassidy Olvera Attending Clinician [phone] PATY SADIA Admitting Clinician MENDOZA Doherty Admitting Clinician Unavailable Mendoza Washburn MD Admitting Clinician [phone] VIVIANE URIARTE Admitting Clinician Unavailable Viviane Uriarte MD Admitting Clinician [phone] Payers Payer Name Policy Type Policy Number Effective Date Expirati on Date Source MANAGED MEDICAID GENERIC NON-CONTRACT [id number] 2023 00:00:00 [facility] [id number] 2022 00:00:00 2023 00:00:00 Problems Condition Name Condition Details Condition Category Status Onset Date Resolution Date Last Treatment Date Treating Clinician Comments Source 39 weeks gestation of 39 weeks gestation of Disease Active 8-03 00:00: 00 [facility] Liveborn , of [place] , born in hospital by vaginal delivery Liveborn infant, of [place] , born in hospital by vaginal delivery Disease Active 8-03 00:00: 00 [facility] Vacuum-ass isted vaginal delivery Vacuum-ass isted vaginal delivery Disease Active 8- 00:00: 00 [facility] Positive GBS test Positive GBS test Disease Active 8- 00:00: 00 [facility] Obesity (BMI 30-39.9) Obesity (BMI 30-39.9) Disease Active 7-25 00:00: 00 [facility] Chlamydia trachomati s infection of lower genitourin jose luis sites Chlamydia trachomati s infection of lower genitourin jose luis sites Disease Active 7-13 00:00: 00 [facility] High-risk in third trimester High-risk in third trimester Disease Active 2023-0 6-26 00:00: 00 [facility] uterine contractio ns in third trimester, antepartum uterine contractio ns in third trimester, antepartum Disease Active 6-14 00:00: 00 [facility] Heartburn during , antepartum Heartburn during , antepartum Disease Active 6 00:00: 00 [facility] Acute lower respirator y infection Acute lower respirator y infection Disease Active 6 00:00: 00 [facility] Need for Tdap vaccinatio n Need for Tdap vaccinatio n Disease Active 6 00:00: 00 [facility] Insufficie nt care in third trimester Insufficie nt care in third trimester Disease Active 2 00:00: 00 [facility] Obesity in , antepartum Obesity in , antepartum Disease Active 09-27 00:00: 00 [facility] Transporta tion insecurity Transporta tion insecurity Disease Active 2 00:00: 00 [facility] Other and unspecifie d diseases of the oral soft tissues Other and unspecifie d diseases of the oral soft tissues Disease Active 05-10 00:00: 00 Overview: Formattin g of this note might be different from the original. Added automatic ally from request for surgery [id number] [facility] Allergies, Adverse Reactions, Alerts Allergy Name Allergy Type Status Severity Reaction(s) Onset Date Inactive Date Treating Clinician Comments Source [place] - Intraven ous Propensi ty to adverse reaction to drug Active 02-25 00:00: 00 NO KNOWN ALLERGIE S Drug Class Active [facility] Social History Social Habit Start Date Stop Date Quantity Comments Source ASSERTION 2022-07-04 00:00:00 [facility] Gender identity [facility] intake 2023-09-29 00:00:00 2023-09-29 00:00:00 Ex-drinker (finding) [facility] History of Social function 2023-08-30 00:00:00 2023-08-30 00:00:00 [facility] Exposure to SARS-CoV-2 (event) 2023-01-09 00:00:00 2023-01-19 15:07:00 Not sure [facility] Tobacco use and exposure 2022-09-27 00:00:00 2022-09-27 00:00:00 Smokeless tobacco non-user [facility] Cigarettes smoked current (pack per day) - Reported 2022-09-27 00:00:00 2022-09-27 00:00:00 [facility] History of tobacco use 2014-08-22 00:00:00 Cigarette Smoker [facility] Sex Assigned At 1990 00:00:00 1990 00:00:00 [facility] Smoking Status Start Date Stop Date Source Ex-smoker 2022-09-27 00:00:00 2022-09-27 [facility] Medications Ordered Medication Name Filled Medication Name Start Date Stop Date Current Medication? Ordering Clinician Indication Dosage Frequency Signature (SIG) Comments Components Source methylPREDN ISolone (MEDROL, ZULAY,) 4 mg tablets 09-16 00:00: 00 Yes [id number] Take by mouth SEE-INSTRU CTIONS. follow package directions [facility] amoxicillin 875 mg tablet 08-30 00:00: 00 09-10 05:59 :00 No [id number] 875mg Take 1 tablet by mouth in the morning and 1 tablet in the evening. Do all this for 10 days. [facility] etonogestre L (NEXPLANON) implant 68 mg 05-03 14:45: 00 05-03 14:04 :00 No [id number] 68mg [facility] rho(D) immune globulin (RHOGAM) syringe 300 mcg 03-25 06:03: 57 Yes 300ug 300 mcg, Intramuscu lar, ONCE, For 1 dose, Conditiona l, Routine [facility] witch Troy (TUCKS) 50 % topical pad 03-25 06:03: 38 Yes Topical, Q4HPRN, Starting on Tue03/25/23 at 0103, Until Discontinu ed, Routine, rectal/hem orrhoidal pain [facility] HYDROcodone -acetaminop hen (NORCO 5) 5-325 mg tablet 1 tablet 03-25 06:03: 38 Yes 1{tbl} 1 tablet, Oral, Q6HPRN, Starting on Tue03/25/23 at 0103, Until Discontinu ed, Routine, Pain (scale 7-10) [facility] ibuprofen (IBU) tablet 600 mg 03-25 06:03: 38 Yes 600mg 600 mg, Oral, Q6HPRN, Starting on Tue03/25/23 at 010, Until Discontinu ed, Routine, Pain (scale 4-6) [facility] acetaminoph en (TYLENOL) tablet 650 mg 03-25 06:03: 38 Yes 650mg 650 mg, Oral, Q6HPRN, Starting on Tue03/25/23 at 0103, Until Discontinu ed, Routine, Pain (scale 1-3) [facility] diphenhydrA MINE (BENADRYL) tablet 25 mg 03-25 06:03: 38 Yes 25mg 25 mg, Oral, Q6HPRN, Starting on Tue03/25/23 at 0103, Until Discontinu ed, Routine, Sleep, Itching [facility] ondansetron (ZOFRAN (PF)) injection 4 mg 03-25 06:03: 38 Yes 4mg 4 mg, Slow IV Push, Q8HPRN, Starting on Tue03/25/23 at 0103, Until Discontinu ed, Routine, Nausea and Vomiting (N/V) [facility] simethicone (GAS RELIEF (SIMETHICON E)) chewable tablet 160 mg 03-25 06:03: 38 Yes 160mg 160 mg, Oral, PC+HSPRN, Starting on Tue03/25/23 at 0103, Until Discontinu ed, Routine, Gas [facility] docusate (COLACE) capsule 200 mg 03-25 06:03: 38 Yes 200mg 200 mg, Oral, QDAILYPRN, Starting on Tue03/25/23 at 0103, Until Discontinu ed, Routine, Constipati on [facility] magnesium hydroxide (MILK OF MAGNESIA) 400 mg/5 mL suspension 30 mL 03-25 06:03: 38 Yes 30mL 30 mL, Oral, QDAILYPRN, Starting on Tue03/25/23 at 0103, Until Discontinu ed, Routine, Constipati on [facility] benzocaine- menthol (DERMOPLAST ) 20-0.5 % topical spray 03-25 06:03: 38 Yes Topical, PRN, Starting on Tue03/25/23 at 010, Until Discontinu ed, Routine, Perineum discomfort [facility] oxytocin (PITOCIN) 30 units in NS 500 mL IV infusion 03-25 01:46: 12 03-25 06:03 :55 No 300mL/h 300 mL/hr, IV Infusion, SEE-INSTRU CTIONS, Starting on Tue03/24/[address] at 300 mL/hr for 1 hr then 150 mL/hr for 1 hr. For post delivery uterotonic .
[facility] ferrous sulfate 325 mg (65 mg iron) tablet 03-25 00:00: 00 Yes [id number] 325mg Take 1 tablet by mouth in the morning and 1 tablet in the evening. [facility] vitamin w/FA tablet 03-25 00:00: 00 09-16 00:00 :00 No [id number] 1{tbl} Take 1 tablet by mouth in the morning. [facility] docusate 100 mg capsule 03-25 00:00: 00 05-03 00:00 :00 No [id number] 200mg Take 2 capsules by mouth once daily as needed for Constipati on. [facility] ibuprofen 600 mg tablet 03-25 00:00: 00 05-03 00:00 :00 No [id number] 600mg Take 1 tablet by mouth every 6 (six) hours as needed (Pain). Take with food or milk. [facility] fentaNYL-ro pivacaine 2 mcg/mL-0.1 % (PF) in NS 200 mL epidural infusion RTU 03-24 14:29: 00 03-25 02:36 :21 No Epidural, CONTINUOUS PRN, Starting on Chiara 03/24/23 at 0929, Until Discontinu ed, Routine, Intra-op [facility] lidocaine-e pinephrine (XYLOCAINE W/EPINEPHRI NE) 1.5 %-1:200,000 injection 03-24 14:27: 00 03-25 02:36 :21 No Intraderma l, ONCE INTRA PROCEDURE, Starting on Chiara 03/24/23 at 0927, Until Discontinu ed, Routine, Intra-op [facility] oxytocin (PITOCIN) 30 units in NS 500 mL IV infusion 03-24 12:33: 37 03-25 06:03 :55 No 2mU/min at 2-40 mL/hr, IV Infusion, TITRATE, Starting on Chiara 03/24/23 at 0733, Until Tue03/25/23 at 0103, SULEMAN [facility] misoprostol (CYTOTEC) quarter-tab let 25 mcg 03-24 06:45: 00 03-24 08:21 :00 No 25ug 25 mcg, Oral, ONCE, 1 dose, On Chiara 03/24/23 at 0145, Routine [facility] lactated ringers IV infusion 500 mL 03-24 06:44: 26 03-25 06:03 :55 No 500mL at 999 mL/hr, 500 mL, IV Infusion, PRN - SEE INSTRUCTIO NS, Starting on Chiara 03/24/23 at 0144, Until Tue03/25/23 at 0103, Routine [facility] ondansetron (ZOFRAN (PF)) injection 4 mg 03-24 06:44: 26 03-25 06:03 :55 No 4mg 4 mg, Slow IV Push, Q8HPRN, Nausea and Vomiting (N/V), Starting on Chiara 03/24/23 at 0144
Do ses of ondansetro n 16 mg and above need to be administer ed via IV piggyback. For Dose >=24mg ECG monitoring is advisable.
[facility] FENTanyl PF (SUBLIMAZE (PF)) injection 100 mcg 03-24 06:44: 26 03-25 06:03 :55 No 100ug 100 mcg, Slow IV Push, Q1HPRN, Starting on Tue03/24/23 at 0144, Until Tue03/25/23 at 0103, Routine, contractio n pain without an epidural and SVE < 8 cm and Cat I strip [facility] D5W-LR IV infusion 1,000 mL 03-24 06:44: 03-25 06:03 :55 No 1000mL at 1-125 mL/hr, IV Infusion, TITRATE, Starting on Tue03/24/23 at 0144, Until Tue03/25/23 at 0103, Routine [facility] azithromyci n 500 mg tablet 03-03 00:00: 00 03-04 04:59 :00 No [id number] 1000mg Take 2 tablets by mouth once now for 1 dose. [facility] albuterol 90 mcg/actuati on inhaler 02-14 00:00: 00 Yes [id number] 2{puff} Inhale 2 Puffs every 6 (six) hours as needed for Wheezing, Shortness of Breath, Bronchospa sm or Chest tightness. [facility] terbutaline (BRETHINE) injection 0.25 mg 02-02 04:15: 00 02-02 04:11 :00 No .25mg 0.25 mg, Subcutaneo us, ONCE, 1 dose, On Tue02/01/23 at 2315, Routine [facility] NaCl 0.9% (NS) bolus infusion 1,000 mL 02-02 02:00: 00 02-02 01:36 :47 No 1000mL at 999 mL/hr, 1,000 mL, IV Infusion, ONCE, 1 dose, On Tue02/01/23 at 2100, STAT [facility] omeprazole 20 mg capsule 01-19 00:00: 00 03-25 00:00 :00 No [id number] 20mg Take 1 capsule by mouth in the morning. [facility] azithromyci n (ZITHROMAX Z-ZULAY) 250 mg tablet 01-19 00:00: 00 02-14 00:00 :00 No [id number] Take two tablets, orally, on day one; then take one tablet, orally, days two through five. [facility] guaiFENesin (MUCINEX) 600 mg tablet 01-19 00:00: 00 02-14 00:00 :00 No [id number] 600mg Take 1 tablet by mouth every 12 (twelve) hours. [facility] TAKE 1 TABLET BY MOUTH EVERY [...] hours as needed for Pain (scale 4-6). [facility] Immunizations Ordered Immunization Name Filled Immunization Name Date Status Comments Source TDAP 2023-01-19 00:00:00 Completed [facility] TDAP 2023-01-19 00:00:00 Completed [facility] TDAP 2023-01-19 00:00:00 Completed [facility] TDAP 2023-01-19 00:00:00 Completed [facility] TDAP 2023-01-19 00:00:00 Completed [facility] TDAP 2023-01-19 00:00:00 Completed [facility] TDAP 2023-01-19 00:00:00 Completed [facility] TDAP 2023-01-19 00:00:00 Completed [facility] TDAP 2023-01-19 00:00:00 Completed [facility] TDAP 2023-01-19 00:00:00 Completed [facility] TDAP 2023-01-19 00:00:00 Completed [facility] TDAP 2023-01-19 00:00:00 Completed [facility] TDAP 2023-01-19 00:00:00 Completed [facility] TDAP 2023-01-19 00:00:00 Completed [facility] TDAP 2023-01-19 00:00:00 Completed [facility] TDAP 2023-01-19 00:00:00 Completed [facility] TDAP 2023-01-19 00:00:00 Completed [facility] TDAP 2023-01-19 00:00:00 Completed [facility] TDAP 2023-01-19 00:00:00 Completed [facility] TDAP 2023-01-19 00:00:00 Completed [facility] TDAP 2023-01-19 00:00:00 Completed [facility] TDAP 2023-01-19 00:00:00 Completed [facility] TDAP 2023-01-19 00:00:00 Completed [facility] TDAP 2023-01-19 00:00:00 Completed [facility] TDAP 2023-01-19 00:00:00 Completed [facility] TDAP 2023-01-19 00:00:00 Completed [facility] TDAP 2023-01-19 00:00:00 Completed [facility] TDAP 2023-01-19 00:00:00 Completed [facility] TDAP 2023-01-19 00:00:00 Completed [facility] TDAP 2023-01-19 00:00:00 Completed [facility] TDAP 2023-01-19 00:00:00 Completed [facility] TDAP 2023-01-19 00:00:00 Completed [facility] Moderna COVID-19 Vaccine 2021-01-01 00:00:00 Completed Moderna COVID-19 Vaccine 2021-01-01 00:00:00 Completed Moderna COVID-19 Vaccine 2021-01-01 00:00:00 Completed Moderna COVID-19 Vaccine 2020-12-03 00:00:00 Completed Moderna COVID-19 Vaccine 2020-12-03 00:00:00 Completed Moderna COVID-19 Vaccine 2020-12-03 00:00:00 Completed TDAP Unknown Completed [facility] TDAP Unknown Completed [facility] TDAP Unknown Completed [facility] TDAP Unknown Completed [facility] TDAP Unknown Completed [facility] TDAP Unknown Completed [facility] Vital Signs Vital Name Observation Time Observation Value Comments S ource Systolic blood pressure 2023-09-29 17:09:00 133 mm[Hg] [facility] Diastolic blood pressure 2023-09-29 17:09:00 81 mm[Hg] [facility] Heart rate 2023-09-29 17:09:00 97 /min [facility] Body temperature 2023-09-29 17:09:00 36.72 Amairani [facility] Respiratory rate 2023-09-29 17:09:00 16 /min [facility] Body height 2023-09-29 17:09:00 149.9 cm [facility] Body weight 2023-09-29 17:09:00 87.091 kg [facility] BMI 2023-09-29 17:09:00 38.78 kg/m2 [facility] Oxygen saturation in Arterial blood by Pulse oximetry 2023-09-29 17:09:00 99 /min [facility] Systolic blood pressure 2023-09-16 20:47:00 108 mm[Hg] [facility] Diastolic blood pressure 2023-09-16 20:47:00 71 mm[Hg] [facility] Heart rate 2023-09-16 20:47:00 86 /min [facility] Body temperature 2023-09-16 20:47:00 36 Amairani [facility] Respiratory rate 2023-09-16 20:47:00 18 /min [facility] Body height 2023-09-16 20:47:[address] [facility] Body weight 2023-09-16 20:47:00 87.907 kg [facility] BMI 2023-09-16 20:47:00 39.14 kg/m2 [facility] Oxygen saturation in Arterial blood by Pulse oximetry 2023-09-16 20:47:00 97 /min [facility] Systolic blood pressure 2023-08-30 19:48:00 126 mm[Hg] [facility] Diastolic blood pressure 2023-08-30 19:48:00 84 mm[Hg] [facility] Heart rate 2023-08-30 19:48:00 97 /min [facility] Body temperature 2023-08-30 19:48:00 36.61 Amairani [facility] Respiratory rate 2023-08-30 19:48:00 17 /min [facility] Body height 2023-08-30 19:48:00 149.9 cm [facility] Body weight 2023-08-30 19:48:00 87.454 kg [facility] BMI 2023-08-30 19:48:00 38.94 kg/m2 [facility] Oxygen saturation in Arterial blood by Pulse oximetry 2023-08-30 19:48:00 99 /min [facility] Systolic blood pressure 2023-05-03 13:54:00 108 mm[Hg] [facility] Diastolic blood pressure 2023-05-03 13:54:00 71 mm[Hg] [facility] Heart rate 2023-05-03 13:53:00 63 /min [facility] Body temperature 2023-05-03 13:53:00 36.61 Amairani [facility] Body height 2023-05-03 13:53:00 149.9 cm [facility] Body weight 2023-05-03 13:53:00 78.654 kg [facility] BMI 2023-05-03 13:53:00 35.02 kg/m2 [facility] Systolic blood pressure 2023-04-26 18:19:00 117 mm[Hg] [facility] Diastolic blood pressure 2023-04-26 18:19:00 77 mm[Hg] [facility] Heart rate 2023-04-26 18:19:00 94 /min [facility] Body temperature 2023-04-26 18:19:00 36.89 Amairani [facility] Body height 2023-04-26 18:19:00 149.9 cm [facility] Body weight 2023-04-26 18:19:00 78.472 kg [facility] BMI 2023-04-26 18:19:00 34.94 kg/m2 [facility] Systolic blood pressure 2023-03-26 00:38:00 120 mm[Hg] [facility] Diastolic blood pressure 2023-03-26 00:38:00 63 mm[Hg] [facility] Heart rate 2023-03-26 00:38:00 88 /min [facility] Body temperature 2023-03-26 00:38:00 36.22 Amairani [facility] Respiratory rate 2023-03-26 00:38:00 16 /min [facility] Oxygen saturation in Arterial blood by Pulse oximetry 2023-03-26 00:38:00 98 /min [facility] Body height 2023-03-24 07:51:00 149.9 cm [facility] Body weight 2023-03-24 07:51:00 82.736 kg [facility] BMI 2023-03-24 07:51:00 36.84 kg/m2 [facility] Systolic blood pressure 2023-03-22 19:11:00 115 mm[Hg] [facility] Diastolic blood pressure 2023-03-22 19:11:00 73 mm[Hg] [facility] Heart rate 2023-03-22 19:11:00 84 /min [facility] Body temperature 2023-03-22 19:11:00 36.5 Amairani [facility] Body height 2023-03-22 19:11:00 149.9 cm [facility] Body weight 2023-03-22 19:11:00 82.736 kg [facility] BMI 2023-03-22 19:11:00 36.84 kg/m2 [facility] Systolic blood pressure 2023-03-15 20:11:00 118 mm[Hg] [facility] Diastolic blood pressure 2023-03-15 20:11:00 72 mm[Hg] [facility] Heart rate 2023-03-15 20:11:00 86 /min [facility] Body temperature 2023-03-15 20:11:00 36.78 Amairani [facility] Respiratory rate 2023-03-15 20:11:00 18 /min [facility] Body height 2023-03-15 20:11:00 149.9 cm [facility] Body weight 2023-03-15 20:11:00 81.285 kg [facility] BMI 2023-03-15 20:11:00 36.19 kg/m2 [facility] Oxygen saturation in Arterial blood by Pulse oximetry 2023-03-15 20:11:00 99 /min [facility] Systolic blood pressure 2023-03-08 19:11:00 107 mm[Hg] [facility] Diastolic blood pressure 2023-03-08 19:11:00 68 mm[Hg] [facility] Heart rate 2023-03-08 19:11:00 91 /min [facility] Body temperature 2023-03-08 19:11:00 36.78 Amairani [facility] Respiratory rate 2023-03-08 19:11:00 18 /min [facility] Body height 2023-03-08 19:11:[address] [facility] Body weight 2023-03-08 19:11:[address] [facility] BMI 2023-03-08 19:11:00 35.91 kg/m2 [facility] Oxygen saturation in Arterial blood by Pulse oximetry 2023-03-08 19:11:00 99 /min [facility] Systolic blood pressure 2023-03-01 19:38:00 109 mm[Hg] [facility] Diastolic blood pressure 2023-03-01 19:38:00 68 mm[Hg] [facility] Heart rate 2023-03-01 19:37:00 91 /min [facility] Body temperature 2023-03-01 19:37:00 36.61 Amairani [facility] Respiratory rate 2023-03-01 19:37:00 20 /min [facility] Body height 2023-03-01 19:37:[address] [facility] Body weight 2023-03-01 19:37:00 79.198 kg [facility] BMI 2023-03-01 19:37:00 35.26 kg/m2 [facility] Oxygen saturation in Arterial blood by Pulse oximetry 2023-03-01 19:37:00 97 /min [facility] Systolic blood pressure 2023-02-14 19:30:00 115 mm[Hg] [facility] Diastolic blood pressure 2023-02-14 19:30:00 70 mm[Hg] [facility] Heart rate 2023-02-14 19:30:00 91 /min [facility] Body temperature 2023-02-14 19:30:00 36.72 Amairani [facility] Respiratory rate 2023-02-14 19:30:00 18 /min [facility] Body height 2023-02-14 19:30:[address] [facility] Body weight 2023-02-14 19:30:[address] [facility] BMI 2023-02-14 19:30:00 35.35 kg/m2 [facility] Systolic blood pressure 2023-02-02 18:52:00 101 mm[Hg] [facility] Diastolic blood pressure 2023-02-02 18:52:00 65 mm[Hg] [facility] Heart rate 2023-02-02 18:52:00 102 /min Un[facility] Body temperature 2023-02-02 18:52:00 36.72 Amairani [facility] Respiratory rate 2023-02-02 18:52:00 16 /min [facility] Body height 2023-02-02 18:52:00 149.9 cm [facility] Body weight 2023-02-02 18:52:00 79.198 kg [facility] BMI 2023-02-02 18:52:00 35.26 kg/m2 [facility] Oxygen saturation in Arterial blood by Pulse oximetry 2023-02-02 18:52:00 97 /min [facility] Heart rate 2023-02-02 03:49:00 78 /min [facility] Oxygen saturation in Arterial blood by Pulse oximetry 2023-02-02 03:49:00 100 /min [facility] Systolic blood pressure 2023-02-02 00:26:00 113 mm[Hg] [facility] Diastolic blood pressure 2023-02-02 00:26:00 59 mm[Hg] [facility] Body temperature 2023-02-02 00:26:00 36.78 Amairani [facility] Respiratory rate 2023-02-02 00:26:00 16 /min [facility] Body height 2023-02-02 00:26:00 149.9 cm [facility] Body weight 2023-02-02 00:26:00 77.928 kg [facility] BMI 2023-02-02 00:26:00 34.70 kg/m2 [facility] Systolic blood pressure 2023-01-19 20:35:00 118 mm[Hg] [facility] Diastolic blood pressure 2023-01-19 20:35:00 74 mm[Hg] [facility] Heart rate 2023-01-19 20:35:00 86 /min [facility] Respiratory rate 2023-01-19 20:35:00 18 /min [facility] Body height 2023-01-19 20:35:00 149.9 cm [facility] Body weight 2023-01-19 20:35:[address] [facility] BMI 2023-01-19 20:35:00 34.34 kg/m2 [facility] Heart rate 2023-01-16 22:45:00 92 /min [facility] Oxygen saturation in Arterial blood by Pulse oximetry 2023-01-16 22:45:00 96 /min [facility] Systolic blood pressure 2023-01-16 22:00:00 105 mm[Hg] [facility] Diastolic blood pressure 2023-01-16 22:00:00 56 mm[Hg] [facility] Respiratory rate 2023-01-16 22:00:00 18 /min [facility] Body temperature 2023-01-16 21:15:00 37.56 Amairani [facility] Body height 2023-01-16 21:15:00 149.9 cm [facility] Body weight 2023-01-16 20:13:[address] [facility] BMI 2023-01-16 20:13:00 34.74 kg/m2 [facility] Systolic blood pressure 2022-09-27 20:07:00 96 mm[Hg] [facility] Diastolic blood pressure 2022-09-27 20:07:00 55 mm[Hg] [facility] Heart rate 2022-09-27 20:07:00 85 /min [facility] Body temperature 2022-09-27 20:07:00 36.89 Amairani [facility] Respiratory rate 2022-09-27 20:07:00 18 /min [facility] Body height 2022-09-27 20:07:00 149.9 [facility] Body weight 2022-09-27 20:07:00 78.926 kg [facility] [...] OF BENEFITS 2023-09-29 17:42:04 Duane r Unassigned, Tatum [facility] POCT TEST 2023-09-29 17:32:00 Hossein Garcia [facility] CONSENT/REFUSAL FOR DIAGNOSIS AND TREATMENT 2023-09-29 16:48:59 Doctor Unassigned, Tatum [facility] POCT MOLECULAR FLU 2023-08-30 19:57:00 Giulia Quintero [facility] POCT SARS-COV-2 ANTIGEN (BINAX NOW) 2023-08-30 00:00:00 Giulia Quintero [facility] CONSENT FOR CONTRACEPTION 2023-05-03 05:01:00 Doctor Unassigned, Tatum [facility] POCT TEST 2023-05-03 00:00:00 Mendoza Washburn [facility] CBC WITH DIFF 2023-03-25 09:22:[address] [facility] CENTRAL NEURAXIAL BLOCK 2023-03-24 13:45:00 Gloria Irwin [facility] HB ABO GROUPING 2023-03-24 07:29:00 Mendoza Washburn [facility] RHO (D) IMMUNE GLOBULIN 2023-03-24 07:29:00 Mendoza Washburn [facility] HOSPITAL ADMISSION 2023-03-24 05:01:00 Doctor Un assigned, Tatum [facility] PHYSICIAN ORDERS 2023-03-23 05:01:00 Doctor Unas signed, Tatum [facility] ASSIGNMENT OF BENEFITS 2023-03-22 20:08:09 Docto r Unassigned, Tatum [facility] POCT URINALYSIS W/O SPECIFIC GRAVITY 2023-03-22 00:00:00 Mendoza Washburn [facility] POCT URINALYSIS W/O SPECIFIC GRAVITY 2023-03-15 00:00:00 Paty [facility] POCT URINALYSIS W/O SPECIFIC GRAVITY 2023-03-08 00:00:00 Mendoza Washburn [facility] >14 WEEKS US LIMITED 2023-03-01 20:38:15 Mendoza Washburn [facility] POCT URINALYSIS W/O SPECIFIC GRAVITY 2023-03-01 00:00:00 Mendoza Washburn [facility] EXTERNAL PROVIDER RECORDS 2023-02-24 05:01:00 Doctor Unassigned, Tatum [facility] AUTHORIZATION TO RELEASE PHI TO [facility] 2023-02-14 05:01:00 Doctor Unassigned, Tatum [facility] POCT URINALYSIS W/O SPECIFIC GRAVITY 2023-02-14 00:00:00 Mendoza Washburn [facility] US PELVIS > 14 WEEKS 2023-02-02 03:42:09 AdumViviane [facility] CONSENT/REFUSAL FOR DIAGNOSIS AND TREATMENT 2023-02-01 23:58:19 Doctor Unassigned, Tatum [facility] EXTERNAL PROVIDER RECORDS 2023-01-20 05:01:00 Doctor Unassigned, Tatum [facility] TDAP VACCINE, >11 YRS, IM 2023-01-19 20:37:39 Indira Kelly [facility] POCT URINALYSIS W/O SPECIFIC GRAVITY 2023-01-19 00:00:00 Indira Kelly [facility] RAPID STREP SCREEN FOR GROUP A 2023-01-16 20:18:00 Kassidy Fowler [facility] RAPID INFLUENZA A/B 2023-01-16 20:18:00 Kassidy Fowler [facility] COVID-19 (ID NOW RAPID TESTING) 2023-01-16 20:18:00 Kassidy Fowler [facility] CONSENT/REFUSAL FOR DIAGNOSIS AND TREATMENT 2023-01-16 20:07:04 Doctor Unassigned, Tatum [facility] AUTHORIZATION TO RELEASE PHI TO [facility] 2023-01-05 05:01:00 Doctor Unassigned, Tatum [facility] FALL RISK ASSESSMENT 2022-10-20 06:01:00 Doctor Unassigned, Tatum [facility] GC & CHLAMYDIA AMPLIFIED ASSAY 2022-09-27 23:00:00 Indira Kelly [facility] TRICHOMONAS AMPLIFIED ASSAY 2022-09-27 23:00:00 Indira Kelly [facility] ASSIGNMENT OF BENEFITS 2022-09-27 19:38:59 Docto r Unassigned, Tatum [facility] POCT URINALYSIS W/O SPECIFIC GRAVITY 2022-09-27 00:00:00 Indira Kelly [facility] Plan of Care Planned Activity Planned Date Details Comments Source Goal Plan of Care Note [code = 29098-2] Goal Plan of Care Note [code = 16162-4] Goal Plan of Care Note [code = 15700-5] Goal Plan of Care Note [code = 99202-3] Goal Plan of Care Note [code = 27950-5] Goal Plan of Care Note [code = 10924-3] Goal Plan of Care Note [code = 16323-8] Goal Plan of Care Note [code = 17659-0] Goal Plan of Care Note [code = 99082-6] Goal Plan of Care Note [code = 74256-3] Goal Plan of Care Note [code = 69474-6] Goal Plan of Care Note [code = 29091-0] Goal Plan of Care Note [code = 34615-4] Goal Plan of Care Note [code = 87145-3] Goal Plan of Care Note [code = 36573-7] Goal Plan of Care Note [code = 05712-2] Goal Plan of Care Note [code = 59564-6] Goal Plan of Care Note [code = 70944-9] Goal Plan of Care Note [code = 11482-5] Goal Plan of Care Note [code = 76373-5] Goal Plan of Care Note [code = 33221-1] Goal Plan of Care Note [code = 58062-3] Goal Plan of Care Note [code = 65005-6] Goal Plan of Care Note [code = 78417-8] Goal Plan of Care Note [code = 82295-2] Goal Plan of Care Note [code = 57980-3] Goal Plan of Care Note [code = 73948-4] Goal Plan of Care Note [code = 20129-1] Goal Plan of Care Note [code = 83703-4] Goal Plan of Care Note [code = 56462-1] Goal Plan of Care Note [code = 75156-1] Goal Plan of Care Note [code = 23017-8] Goal Plan of Care Note [code = 22443-8] Goal Plan of Care Note [code = 24466-3] Goal Plan of Care Note [code = 28411-1] Goal Plan of Care Note [code = 17720-5] Goal Plan of Care Note [code = 99599-1] Goal Plan of Care Note [code = 00355-1] Goal Plan of Care Note [code = 82704-1] Goal Plan of Care Note [code = 10493-1] Goal Plan of Care Note [code = 20907-5] Goal Plan of Care Note [code = 79310-3] Goal Plan of Care Note [code = 68838-3] Goal Plan of Care Note [code = 17400-9] Goal Plan of Care Note [code = 53114-7] Goal Plan of Care Note [code = 16633-4] Goal Plan of Care Note [code = 20833-8] Goal Plan of Care Note [code = 97300-8] Goal Plan of Care Note [code = 98323-9] Goal Plan of Care Note [code = 25669-3] Goal Plan of Care Note [code = 75364-6] Goal Plan of Care Note [code = 11539-7] Goal Plan of Care Note [code = 43146-8] Goal Plan of Care Note [code = 01120-1] Goal Plan of Care Note [code = 36268-3] Goal Plan of Care Note [code = 49973-5] Goal Plan of Care Note [code = 10397-0] Goal Plan of Care Note [code = 78475-4] Goal Plan of Care Note [code = 62315-9] Goal Plan of Care Note [code = 24784-4] Goal Plan of Care Note [code = 88936-1] Goal Plan of Care Note [code = 23783-1] Goal Plan of Care Note [code = 96022-5] Goal Plan of Care Note [code = 53453-5] Goal Plan of Care Note [code = 85172-8] Goal Plan of Care Note [code = 86550-3] Goal Plan of Care Note [code = 82127-0] Goal Plan of Care Note [code = 57418-3] Goal Plan of Care Note [code = 01120-9] Goal Plan of Care Note [code = 78492-4] Goal Plan of Care Note [code = 80165-0] Goal Plan of Care Note [code = 79584-1] Goal Plan of Care Note [code = 72953-5] Goal Plan of Care Note [code = 41204-7] Goal Plan of Care Note [code = 36398-0] Goal Plan of Care Note [code = 05281-1] Goal Plan of Care Note [code = 13187-9] Goal Plan of Care Note [code = 37392-2] Goal Plan of Care Note [code = 10780-8] Goal Plan of Care Note [code = 05213-0] Goal Plan of Care Note [code = 66379-0] Goal Plan of Care Note [code = 93286-6] Goal Plan of Care Note [code = 13502-6] Goal Plan of Care Note [code = 78753-8] Goal Plan of Care Note [code = 58033-8] Goal Plan of Care Note [code = 22473-5] Goal Plan of Care Note [code = 82112-8] Goal Plan of Care Note [code = 68705-4] Goal Plan of Care Note [code = 50064-8] Goal Plan of Care Note [code = 27888-5] Goal Plan of Care Note [code = 26822-6] Goal Plan of Care Note [code = 94276-2] Goal Plan of Care Note [code = 55900-8] Goal Plan of Care Note [code = 86826-1] Goal Plan of Care Note [code = 91813-8] Encounters Start Date/Time End Date/Time Encounter Type Admission Type Attending Clinicians Care Facility Care Department Encounter ID Source 2023-01-16 18:33:41 Outpatient X [facility] [id number] [facility] 2023-09-29 12:30:00 2023-09-29 12:30:00 Outpatient R GIULIA QUINTERO [facility] [id number] [facility] 2023-09-29 11:12:00 2023-09-29 12:19:00 Emergency X DOUGBENITO JOYNERIO [facility] ERT [id number] [facility] 2023-09-29 11:12:00 2023-09-29 12:19:00 Emergency Hossein Garcia C [facility] 1.2.840.114 350.1.13.10 4.2.7.2.686 [id number] [facility] 2023-09-16 15:00:00 2023-09-16 15:12:22 Outpatient R GIULIA QUINTERO [facility] [id number] [facility] 2023-09-16 15:00:00 2023-09-16 15:12:22 Office Visit Giulia Quintero [facility] 1.2.840.114 350.1.13.10 4.2.7.2.686 [id number] [facility] 2023 14:00:00 2023 14:00:00 Outpatient R [facility] [id number] [facility] 2023-08-30 13:30:00 2023-08-30 14:13:23 Outpatient R GIULIA QUINTERO [facility] [id number] [facility] 2023-08-30 13:30:00 2023-08-30 14:13:23 Office Visit [facility] 1.2.840.114 350.1.13.10 4.2.7.2.686 [id number] [facility] 2023-05-04 13:45:00 2023-05-04 13:45:00 Outpatient R MENDOZA WASHBURN [facility] [id number] [facility] 2023-05-03 08:30:00 2023-05-03 08:54:06 Outpatient R MENDOZA WASHBURN [facility] [id number] [facility] 2023-05-03 08:30:00 2023-05-03 08:54:06 Office Visit Mendoza Washburn [facility] 1.2.840.114 350.1.13.10 4.2.7.2.686 [id number] [facility] 2023-05-03 00:00:00 2023-05-03 00:00:00 Orders Only Doctor Unassigned, Tatum [facility] 1.2840.114 350.1.13.10 4.2.7.2.686 [id number] [facility] 2023-04-27 00:00:00 2023-04-27 00:00:00 Telephone Mednoza Washburn [facility] 1.2840.114 350.1.13.10 4.2.7.2.686 [id number] [facility] 2023-04-26 13:00:00 2023-04-26 13:33:14 Outpatient R MENDOZA WASHBURN [facility] [id number] [facility] 2023-04-26 13:00:00 2023-04-26 13:33:14 Routine Visit Mendoza Washburn [facility] 1.2840.114 350.1.13.10 4.2.7.2.686 [id number] [facility] 2023-03-30 00:00:00 2023-03-30 00:00:00 Telephone Mendoza Washburn [facility] 1.2840.114 350.1.13.10 4.2.7.2.686 [id number] [facility] 2023-03-24 01:37:00 2023-03-25 22:10:00 Inpatient P MENDOZA WASHBURN [facility] AD[facility] [id number] [facility] 2023-03-24 01:37:00 2023-03-25 22:10:00 Hospital Encounter Mendoza Washburn [facility] 1.2.840.114 350.1.13.10 4.2.7.2.686 [id number] [facility] 2023-03-24 08:45:00 2023-03-24 21:36:00 Anesthesia Event Stalin Benito Stacey [facility] 1.2.840.114 350.1.13.10 4.2.7.2.686 [id number] [facility] 2023-03-24 07:00:58 2023-03-24 07:00:58 Anesthesia Event Dc Marivelvick Pittman [facility] 1.2.840.114 350.1.13.10 4.2.7.2.686 [id number] [facility] 2023-03-24 00:00:00 2023-03-24 00:00:00 Orders Only Doctor Unassigned, Tatum [facility] 1.2.840.114 350.1.13.10 4.2.7.2.686 [id number] [facility] 2023-03-23 00:00:00 2023-03-23 00:00:00 Orders Only Doctor Unassigned, Tatum [facility] 1.2.840.114 350.1.13.10 4.2.7.2.686 [id number] [facility] 2023-03-22 15:00:00 2023-03-22 15:15:00 Hotel Or Motel Room Service Supervisor Visit Pob, Adc Lab Main Washburn, Mendoza Cam [facility] 1.2.840.114 350.1.13.10 4.2.7.2.686 [id number] [facility] 2023-03-22 15:00:00 2023-03-22 15:00:00 Outpatient R MENDOZA WASHBURN [facility] [id number] [facility] 2023-03-22 14:15:00 2023-03-22 14:47:16 Routine Visit Mendoza Washburn [facility] 1.2840.114 350.1.13.10 4.2.7.2.686 [id number] [facility] 2023-03-22 00:00:00 2023-03-22 00:00:00 Orders Only Doctor Unassigned, Tatum [facility] 1.284.114 350.1.13.10 4.2.7.2.686 [id number] [facility] 2023-03-15 15:00:00 2023-03-15 15:23:44 Outpatient R RACHANA S, SADIA OBINNA-LUCIUS STANNERSADIA [facility] [id number] [facility] 2023-03-15 15:00:00 2023-03-15 15:23:44 Routine Visit Sadia Rene [facility] 1.2.840.114 350.1.13.10 4.2.7.2.686 [id number] [facility] 2023-03-08 14:15:00 2023-03-08 14:29:55 Outpatient R MENDOZA WASHBURN [facility] [id number] [facility] 2023-03-08 14:15:00 2023-03-08 14:29:55 Routine Visit Mendoza Washburn [facility] 1.2840.114 350.1.13.10 4.2.7.2.686 [id number] [facility] 2023-03-03 00:00:00 2023-03-03 00:00:00 Case Management Mendoza Washburn [facility] 1.2.840.114 350.1.13.10 4.2.7.2.686 [id number] [facility] 2023-03-01 15:30:00 2023-03-01 15:35:40 Hotel Or Motel Room Service Supervisor Visit 2, Adc Lab Mendoza Washburn [facility] 1.2.840.114 350.1.13.10 4.2.7.2.686 [id number] [facility] 2023-03-01 14:00:00 2023-03-01 15:17:01 Outpatient R MENDOZA WASHBURN [facility] [id number] [facility] 2023-03-01 14:00:00 2023-03-01 15:17:01 Routine Visit eMndoza Washburn [facility] 1.2840.114 350.1.13.10 4.2.7.2.686 [id number] [facility] 2023-02-25 00:00:00 2023-02-25 00:00:00 Telephone Mendoza Washburn [facility] 1.2.840.114 350.1.13.10 4.2.7.2.686 [id number] [facility] 2023-02-24 00:00:00 2023-02-24 00:00:00 Orders Only Doctor Unassigned, Tatum [facility] 1.2.840.114 350.1.13.10 4.2.7.2.686 [id number] [facility] 2023-02-16 00:00:00 2023-02-16 00:00:00 Telephone Mendoza Washburn [facility] 1.2840.114 350.1.13.10 4.2.7.2.686 [id number] [facility] 2023-02-16 00:00:00 2023-02-16 00:00:00 Case Management NicolejoseIndira [facility] 1.840.114 350.1.13.10 4.2.7.2.686 [id number] [facility] 2023-02-15 15:00:00 2023-02-15 16:00:00 Hotel Or Motel Room Service Supervisor Visit Ultrasound, Rhys Reid [facility] ASSISTED LIVING EXECUTIVE DIRECTOR [facility] 1.840.114 350.1.13.10 4.2.7.2.686 [id number] [facility] 2023-02-15 15:00:00 2023-02-15 15:00:00 Outpatient P RHYS WELLS [facility] [id number] [facility] 2023-02-14 14:15:00 2023-02-14 15:13:56 Outpatient R MENDOZA WASHBURN [facility] [id number] [facility] 2023-02-14 14:15:00 2023-02-14 15:13:56 Routine Visit Mendoza Washburn [facility] 1.2840.114 350.1.13.10 4.2.7.2.686 [id number] [facility] 2023-02-14 00:00:00 2023-02-14 00:00:00 Orders Only Doctor Unassigned, Tatum [facility] 1.2840.114 350.1.13.10 4.2.7.2.686 [id number] [facility] 2023-02-02 13:45:00 2023-02-02 14:22:21 Outpatient R KELININDIRA ALMARAZ NICOLEINDIRA ARCOS [facility] [id number] [facility] 2023-02-02 13:45:00 2023-02-02 14:22:21 Routine Visit CarringtonIndira villarreal [facility] 1.2.840.114 350.1.13.10 4.2.7.2.686 [id number] [facility] 2023-02-01 19:10:00 2023-02-02 00:20:00 Outpatient X VIVIANE URIARTE ADAMARIS [id number] [facility] 2023-02-01 19:10:00 2023-02-02 00:20:00 Emergency Adcolin Viviane L [facility] 1.2.840.114 350.1.13.10 4.2.7.2.686 [id number] [facility] 2023-01-20 00:00:00 2023-01-20 00:00:00 Orders Only Doctor Unassigned, Tatum [facility] 1.2.840.114 350.1.13.10 4.2.7.2.686 [id number] [facility] 2023-01-19 16:15:00 2023-01-19 16:15:00 Routine Visit NicoleIndira arcos [facility] 1.2.840.114 350.1.13.10 4.2.7.2.686 [id number] [facility] 2023-01-19 16:15:00 2023-01-19 16:01:14 Outpatient R NICOLEINDIRA ARCOS NICOLEROCÍO ARCOSTONEY [facility] [id number] [facility] 2023-01-19 00:00:00 2023-01-19 00:00:00 Case Management Indira Kelly [facility] 1.2840.114 350.1.13.10 4.2.7.2.686 [id number] [facility] 2023-01-16 15:15:00 2023-01-16 18:15:00 Outpatient X YOON-LUCIUS S, SADIA YOON-LUCIUS S, SADIA [facility] ADAM[facility]IS [id number] [facility] 2023-01-16 15:15:00 2023-01-16 18:15:00 Emergency Kassidy Fowlerio-Lucius s, Sadia [facility] 1.2.840.114 350.1.13.10 4.2.7.2.686 [id number] [facility] 2023-01-14 14:53:49 2023-01-14 14:53:49 Outpatient [facility] [id number] Serafin Girard Flako 2023-01-13 00:00:00 2023-01-13 00:00:00 Telephone Indira Kelly [facility] 1.2.840.114 350.1.13.10 4.2.7.2.686 [id number] [facility] 2023-01-05 00:00:00 2023-01-05 00:00:00 Orders Only Doctor Unassigned, [place] [facility] 1.2.840.114 350.1.13.10 4.2.7.2.686 [id number] [facility] 2022-11-08 10:00:00 2022-11-08 10:00:00 Outpatient P [facility] [id number] [facility] 2022-11-05 08:30:00 2022-11-05 08:30:00 Outpatient P [facility] [id number] [facility] 2022-10-25 09:15:00 2022-10-25 09:15:00 Outpatient R INDIRA KELLYKIRAINDIRA ARCOS [facility] [id number] [facility] 2022-10-20 00:00:00 2022-10-20 00:00:00 Orders Only Doctor Unassigned, [place] [facility] 1.2.840.114 350.1.13.10 4.2.7.2.686 [id number] [facility] 2022-10-17 00:00:00 2022-10-17 00:00:00 Telephone Indira Kelly [facility] 1.2.840.114 350.1.13.10 4.2.7.2.686 [id number] [facility] 2022-10-11 00:00:00 2022-10-11 00:00:00 Telephone KelinIndira almaraz [facility] 1.2.840.114 350.1.13.10 4.2.7.2.686 [id number] [facility] 2022-10-01 00:00:00 2022-10-01 00:00:00 Letter (Out) KelinIndira almaraz [facility] 1.2.840.114 350.1.13.10 4.2.7.2.686 [id number] [facility] 2022-09-30 10:15:05 2022-09-30 10:15:05 Outpatient [facility] [id number] Serafin Arriola 2022-09-27 16:36:06 2022-09-27 16:36:06 Outpatient [facility] [id number] Serafin Arriola 2022-09-27 13:30:00 2022-09-27 14:33:13 Outpatient R NICOLEROCÍO ARCOSTONEY BOSCHCHRISTOPHEKIRAINDIRA ARCOS [facility] [id number] [facility] 2022-09-27 13:30:00 2022-09-27 14:33:13 Initial Visit Indira Kelly [facility] 1.2.840.114 350.1.13.10 4.2.7.2.686 [id number] [facility] 2022-09-27 00:00:00 2022-09-27 00:00:00 Orders Only Doctor Unassigned, [place] [facility] 1.2.840.114 350.1.13.10 4.2.7.2.686 [id number] [facility] 2022-09-08 13:23:15 2022-09-08 13:23:15 Outpatient [facility] [id number] Serafin Arriola 2022-09-07 17:08:57 2022-09-07 17:08:57 Outpatient [facility] [id number] Serafin Arriola 2022-09-07 00:00:00 2022-09-07 00:00:00 Outpatient Visit [id number] 2022-07-27 13:04:42 2022-07-27 13:04:42 Outpatient SFA [facility] [id number] Serafin Arriola 2022-03-31 00:00:00 2022-03-31 00:00:00 Outpatient Visit [id number] 2022-02-25 00:00:00 2022-02-25 00:00:00 Outpatient Visit [id number] Results Test Description Test Time Test Comments Results Result Co mments Source [facility] SARS-COV-2 ANTIGEN (BINAX NOW)2023-08-30 20:11:00* Test Item Value Reference Range Interpretation Comme nts POCT SARS-COV-2 ANTIGEN (jaylen t code = 40984-2) Not Detected Not Detected On board controls acceptable with C Line (test code = 3574) Yes [facility] SARS-COV-2 ANTIGEN (BINAX NOW)2023-08-30 20:11:00* Test Item Value Reference Range Interpretation Comme nts POCT SARS-COV-2 ANTIGEN (jaylen t code = 24277-3) Not Detected Not Detected On board controls acceptable with C Line (test code = 3574) Yes [facility] Molecular [id number] 20:08:24* Test Item Value Reference Range Interpretation Comme nts POCT Molecular FluA (test co de = 21923-0) Negative Negative POCT Molecular FluB (test co de = 96559-4) Negative Negative Lab Interpretation (test cod e = 18580-1) Normal [facility] Molecular [id number] 20:08:24* Test Item Value Reference Range Interpretation Comme nts POCT Molecular FluA (test co de = 27358-2) Negative Negative POCT Molecular FluB (test co de = 30552-7) Negative Negative Lab Interpretation (test cod e = 93003-1) Normal [facility] [id number] 13:52:00* Test Item Value Reference Range Interpretation Comme nts POCT PREG (test code = 1605) Negative On board controls acceptable with C Line (test code = 3574) Yes POCT PREG LOT # (test code = 3575) POCT PREG TEST DATE ( test code = 3576) [facility] [id number] 13:52:00* Test Item Value Reference Range Interpretation Comme nts POCT PREG (test code = 1605) Negative On board controls acceptable with C Line (test code = 3574) Yes POCT PREG LOT # (test code = 3575) POCT PREG TEST DATE ( test code = 3576) [facility] with [id number] 11:42:28* Test Item Value Reference Range Interpretation [...] 33.2 g/dL 31.6-35.1 RDW-SD (test code = 45440-7) 41.7 fL 39.0-49.9 RDW-CV (test code = 788-0) 14.4 % 12.0-15.5 PLT (test code = 777-3) 287 See_Comment [Automated message] The system which generated this result transmitted reference range: 166 - 358 10*3/?L. The reference range was not used to interpret this result as normal/abnormal. MPV (test code = 40055-5) 10.2 fL 9.5-12.9 NRBC/100 WBC (test code = 4963580385) 0.0 See_Comment [Automated message] The system which generated this result transmitted reference range: 0.0 - 10.0 /100 WBCs. The reference range was not used to interpret this result as normal/abnormal. NRBC x10^3 (test code = 5611475545) See_Comment [Automated message] The system which generated this result transmitted reference range: 10*3/?L. The reference range was not used to interpret this result as normal/abnormal. GRAN MAT (NEUT) % (test code = 770-8) 85.9 % IMM GRAN % (test code = 7343617715) 0.70 % LYMPH % (test code = 736-9) 9.3 % MONO % (test code = 5905-5) 3.8 % EOS % (test code = 713-8) 0.1 % BASO % (test code = 706-2) 0.2 % GRAN MAT x10^3(ANC) (test code = 3591093979) 17.05 10*3/uL 1.88-7.09 H IMM GRAN x10^3 (test code = 7355056307) 0.13 10*3/uL 0.00-0.06 H LYMPH x10^3 (test code = 731-0) 1.84 10*3/uL 1.32-3.29 MONO x10^3 (test code = 742-7) 0.76 10*3/uL 0.33-0.92 EOS x10^3 (test code = 711-2) 0.03-0.39 L BASO x10^3 (test code = 704-7) 0.04 10*3/uL 0.01-0.07 BANDS (test code = 8249576806) Increased A Lab Interpretation (test code = 70565-8) Abnormal [facility]HO (D) IMMUNE [id number] 09:52:15* Test Item Value Reference Range Interpretation Comme nts RHIG CANDIDATE? (test code = 5188) No- see comment Patient is not a candidate for RhIg- Patient is Rh Positive.Performed at [facility] Laboratory Services - [facility] Blood [address] [place] [phone] Free: [phone] No. [id number] [facility] FallsType and Screen - ONCE [id number] 08:10:00* Test Item Value Reference Range Interpretation Comme nts ABO & RH (test code = 20) A Positive IAT (test code = 1185) Negative [facility] FallsPOCT URINALYSIS W/O SPECIFIC [id number] 19:12:00* Test Item Value Reference Range Interpretation [...] = 3257) 250 Negative - Negati ve [facility] URINALYSIS W/O SPECIFIC [id number] 20:12:00* Test Item Value Reference Range Interpretation [...] = 3257) n/a Negative - Negati ve [facility] URINALYSIS W/O SPECIFIC [id number] 19:09:00* Test Item Value Reference Range Interpretation [...] = 3257) n/a Negative - Negati ve [facility] URINALYSIS W/O SPECIFIC [id number] 19:35:00* Test Item Value Reference Range Interpretation [...] = 3257) n/a Negative - Negati ve [facility] URINALYSIS W/O SPECIFIC [id number] 19:36:00* Test Item Value Reference Range Interpretation [...] = 3257) n/a Negative - Negati ve [facility] URINALYSIS W/O SPECIFIC [id number] 19:36:00* Test Item Value Reference Range Interpretation [...] = 3257) n/a Negative - Negati ve [facility] URINALYSIS W/O SPECIFIC [id number] 20:39:00* Test Item Value Reference Range Interpretation [...] = 3257) N/A Negative - Negati ve [facility] FallsPAP TEST, THINPREP, [id number] 14:51:31 * Test Item Value Reference Range Interpretation Comme nts SOURCE: (test code = 8001) Cervical SLIDES: (test code = 8011) 1 LMP: (test code = 8021) 06/20/2022 SPECIMEN ADEQUACY: (test code = 31057) (NOTE) Satisfactory for evaluation. Endocervical cells/transformation zone component present. INTERPRETATION: (test code = 12220) NILM/NO EPITH. ABNORMALITY;SEE BELOW --- - NEGATIVE FOR INTRAEPITHELIAL LESION OR MALIGNANCY (NILM) ---- OTHER COMMENTS: (test code = 8081) (NOTE) Shift in trent suggestive of bacterial vaginosis. YOKER MACHINE OPERATOR : (test code = 8101) OLIVER Martinez(ASCP) LOCATION: (test code = 06204) (NOTE) Specimens proces sed and interpreted at [facility], [address] [place] [address], , CLIA: [id number] CPT: (test code = 8140) (NOTE) 20356 UNLESS OTH ERWISE INDICATED, COMPUTER AIDED AND YOKER MACHINE OPERATOR SCREENING PERFORMED. The Pap test is a screening test with an inherent, but low probability of error. Your patient should be reminded to consult you immediately if she experiences any suspicious signs or symptoms, regardless of her Pap test result. An alternate report format containing images or consolidated prior Pap history is available as applicable. HPV HIGH RISK WITH GENOTYPE, [id number] 13:47:49* Test Item Value Reference Range Interpretation Comme nts HPV HIGH RISK INTERP (test code = 41321) NEGATIVE NEGATIVE HPV 16 (test code = 98320) NEGATIVE HPV 18 (test code = 89438) NEGATIVE HPV, HR, OTHER GENOTYPES (test code = 79465) NEGATIVE Testing methodol ogy is real-time PCR [...] level of infection or specimen sampling error. [facility] has important pathology staff changes effective 10/20/2022. New pathology staff will provide uninterrupted, excellent patient care and clinical consultation. See URL: [email or web address]. UNLESS OTHERWISE INDICATED, ALL TESTING PERFORMED AT [facility] [address] [place] [address] CLIA: [id number], CAP: [id number] POCT URINALYSIS W/O SPECIFIC [id number] 20:17:00* Test Item Value Reference Range Interpretation [...] = 3257) N/A Negative - Negati ve [facility] FallsHEMOGLOBIN [id number] 14:58:32 * Test Item Value Reference Range [...] DETECTED OTHER HEMOGLOBIN VARIANT (test code = 07244) NONE DETEC % NONE DETECTED PATHOLOGIST'S INTERPRETATION (test code = 2577) (NOTE) NO ABNORMAL HEMOGLOBINS IDENTIFIED. LAITH BALLESTEROS M.D. PAP TEST, THINPREP, [id number] 13:40:58* Test Item Value Reference Range Interpretation Comme nts SOURCE: (test code = 8001) Cervical/Endoce rvical SLIDES: (test code = 8011) 2 LMP: (test code = 8021) 07/20/2022 SPECIMEN ADEQUACY: (test code = 90270) (NOTE) Unsatisfactory ( see Interpretation). INTERPRETATION: (test code = 76479) UNSATISFACTORY; SEE BELOW A --- - UNSATISFACTORY FOR EVALUATION Insufficient cellularity (Charges deleted, please resubmit) OTHER COMMENTS: (test code = 8081) (NOTE) Glacial acetic a bijan added due to blood/mucus in specimen. YOKER MACHINE OPERATOR : (test code = 8101) Sara De La Rosa TECHNOLOGIST: (test code = 8111) ANISHA Henry(ASCP) [facility] LOCATION: (test code = 01535) (NOTE) Specimens proces sed and interpreted at [facility], [address] [place] [address], , CLIA: [id number] CPT: (test code = 8140) (NOTE) 62559 UNLESS OTH ERWISE INDICATED, COMPUTER AIDED AND YOKER MACHINE OPERATOR SCREENING PERFORMED. The Pap test is a screening test with an inherent, but low probability of error. Your patient should be reminded to consult you immediately if she experiences any suspicious signs or symptoms, regardless of her Pap test result. An alternate report format containing images or consolidated prior Pap history is available as applicable. CULTURE, [id number] 12:16:01SPECIMEN NUMBER: [id number] CULTURE, URINE SPECIMEN NUMBER: [id number] SPECIMEN COMMENT: URINE SOURCE: URINE REPORT STATUS: [...] NO COMMON PATHOGENSHPV HIGH RISK WITH GENOTYPE, [id number] 15:55:11* Test Item Value Reference Range Interpretation Comme nts HPV HIGH RISK INTERP (test code = 52412) NEGATIVE NEGATIVE HPV 16 (test code = 96358) NEGATIVE HPV 18 (test code = 64040) NEGATIVE HPV, HR, OTHER GENOTYPES (test code = 21820) NEGATIVE Testing methodol ogy is real-time PCR [...] error. UNLESS OTHERWISE INDICATED, ALL TESTING PERFORMED [facility] [address] [place] [address] BIOMASS PRODUCTION MANAGER: ASHLEY ZARAGOZA M.D. CLIA NUMBER [id number] [facility]. [id number] VAGINAL PATHOGENS DNA [id number] 15:49:27* Test Item Value Reference Range Interpretation Comme nts BEATA SPECIES (test code = 42417) POSITIVE NEGATIVE A G. VAGINALIS (test code = 20861) POSITIVE NEGATIVE A T. VAGINALIS (test code = 94037) NEGATIVE NEGATIVE Note: The BD [facility] VPIII Microbial Identification Testis a DNA probe test intended for use in the detectionand identification of Beata species, Gardnerellavaginalis and Trichomonas vaginalis nucleic acid. UNLESS OTHERWISE INDICATED, ALL TESTING PERFORMED [facility] [address] [place] [address] BIOMASS PRODUCTION MANAGER: ASHLEY ZARAGOZA M.D. [facility] NUMBER [id number] [facility]. [id number] VARICELLA ZOSTER [id number] 13:53:47* Test Item Value Reference Range Interpretation Comme nts VARICELLA ZOSTER IgG (test code = 70291) 51 INDEX SEE BELOW L INTERPRETATI ON [...] . . . INDEX >=165 CT/NG, NAAT, [id number] 13:36:33* Test Item Value Reference Range Interpretation Comme nts CHLAMYDIA, NAAT, THINPREP (test code = 92845) NEGATIVE NEGATIVE A negative resul t does not exclude low level infection, specimensampling error, or collection error. Testing is performed with the Jesusita González 6800/8800 systems usingreal-time Polymerase Chain Reaction (PCR) method. GONORRHEA, NAAT, THINPREP (test code = 72430) NEGATIVE NEGATIVE A negative resul t does not exclude low level infection, specimensampling error, or collection error. Testing is performed with the Jesusita González 6800/8800 systems usingreal-time Polymerase Chain Reaction (PCR) method. DRUG ABUSE SCREEN 10 REFLEX [id number] 04:56:34* Test Item Value Reference Range Interpretation Comme nts AMPHETAMINES (test code = 3201) NEGATIVE NEGATIVE BARBITURATES (test code = 3202) NEGATIVE NEGATIVE BENZODIAZEPINES (test code = 3203) NEGATIVE NEGATIVE CANNABINOIDS (test code = 3204) NEGATIVE NEGATIVE COCAINE METABOLITE (test code = 3205) NEGATIVE NEGATIVE OPIATES (test code = 3209) NEGATIVE NEGATIVE OXYCODONE (test code = 21286) NEGATIVE NEGATIVE PHENCYCLIDINE (test code = 3210) NEGATIVE NEGATIVE METHADONE (test code = 3207) NEGATIVE NEGATIVE BUPRENORPHINE (test code = 09435) NEGATIVE NEGATIVE SOURCE (test code = 635732) URINE SEE BELOW FO R THRESHOLDS AND [...] ALL TESTING PERFORMED [facility] [address] [place] [address] BIOMASS PRODUCTION MANAGER: ASHLEY ZARAGOZA M.D. CLIA NUMBER [id number] [facility]. [id number] OBSTETRIC PANEL + [id number] 04:55:00* Test Item Value Reference Range Interpretation [...] 0.00-0.10 ABS NUCLEATED RBCS (test code = 46001) 0.00 K/UL 0.00-0.11 BLOOD TYPE AND RH [...] BELOW RUBELLA IgG INTERP (test code = 71223) REACTIVE REACTIVE INTERPRETATI ON UNITS RANGE NON-REACTIVE/NON-IMM UNE IU/ML <10 REACTIVE/IMMUNE IU/ML >=10 HEPATITIS B SURF AG (test code = 2739) NON-REACTIVE NON-REACTIVE RPR (test code = 87442) NON-REACTIVE NON-REACTIVE RPR TITER (test code = 3500) NOT INDIC. TITER NOT INDIC. HIV 1/2 4TH GEN, RFLX CONF (test code = 3514) NON-REACTIVE NON-REACTIVE HEPATITIS C REFLEX [id number] 04:55:00* Test Item Value Reference Range Interpretation Comme nts HEPATITIS C ANTIBODY (test c ode = 4675) NON-REACTIVE NON-REACTIVE VAGINAL PATHOGENS DNA [id number] 17:28:27* Test Item Value Reference Range Interpretation Comme nts BEATA SPECIES (test code = ) NEGATIVE NEGATIVE G. VAGINALIS (test code = 54772) POSITIVE NEGATIVE A T. VAGINALIS (test code = 04198) NEGATIVE NEGATIVE UNLESS OTHERWISE INDICATED, ALL TESTING PERFORMED [facility] [address] [place] [address] BIOMASS PRODUCTION MANAGER: ASHLEY ZARAGOZA M.D. CLIA NUMBER [id number] [facility]. [id number] VAGINAL PATHOGENS DNA [id number] 00:00:00* Test Item Value Reference Range Interpretation Comme nts BEATA SPECIES (test code = 60361) NEGATIVE G. VAGINALIS (test code = 12079) POSITIVE T. VAGINALIS (test code = 70794) NEGATIVE VAGINAL PATHOGENS DNA [id number] 00:00:00* Test Item Value Reference Range Interpretation Comme nts BEATA SPECIES (test code = 33343) NEGATIVE G. VAGINALIS (test code = 42283) POSITIVE T. VAGINALIS (test code = 54126) NEGATIVE CULTURE, [id number] 11:55:32SPECIMEN NUMBER: [id number] CULTURE, URINE SPECIMEN NUMBER: [id number] SPECIMEN COMMENT: URINE SOURCE: URINE REPORT STATUS: FINAL FINAL REPORT: 02/28/2022 10-50,000 CFU/ML UROGENITAL TRENT PRESENT NO CO MMON PATHOGENSCULTURE, [id number] 00:00:00* Test Item Value Reference Range Interpretation Comme nts CULTURE, URINE (test code = 84845) SPECIMEN NUMBER: [id number] CULTURE, [id number] 00:00:00* Test Item Value Reference Range Interpretation Comme nts CULTURE, URINE (test code = 71678) SPECIMEN NUMBER: [id number] CHLAMYDIA, AMPLIFIED, [id number] 00:00:00* Test Item Value Reference Range Interpretation Comme nts CHLAMYDIA, NAAT (test code = 48300) NEGATIVE GC, AMPLIFIED, [id number] 00:00:00* Test Item Value Reference Range Interpretation Comme nts GONORRHEA, NAAT (test code = 81357) NEGATIVE CHLAMYDIA, AMPLIFIED, [id number] 00:00:00* Test Item Value Reference Range Interpretation Comme nts CHLAMYDIA, NAAT (test code = 51380) NEGATIVE CHLAMYDIA, AMPLIFIED, [id number] 00:00:00* Test Item Value Reference Range Interpretation Comme nts CHLAMYDIA, NAAT (test code = 68079) NEGATIVE GC, AMPLIFIED, [id number] 00:00:00* Test Item Value Reference Range Interpretation Comme nts GONORRHEA, NAAT (test code = 55155) NEGATIVE GC, AMPLIFIED, [id number] 00:00:00* Test Item Value Reference Range Interpretation Comme nts GONORRHEA, NAAT (test code = 42908) NEGATIVE HCG, [id number] 00:00:00* Test Item Value Reference Range Interpretation Comme nts HCG, QUANTITATIVE (test code = 2506) <5 MIU/ML HCG, [id number] 00:00:00* Test Item Value Reference Range Interpretation Comme nts HCG, QUANTITATIVE (test code = 2506) <5 MIU/ML HCG, [id number] 00:00:00* Test Item Value Reference Range Interpretation Comme nts HCG, QUANTITATIVE (test code = 2506) <5 MIU/ML HIV AB/AG COMBO RFLX [id number] 00:00:00* Test Item Value Reference Range Interpretation Comme nts HIV 1/2 4TH GEN, RFLX CONF ( test code = 3514) NON-REACTIVE ACUTE HEPATITIS [id number] 00:00:00* Test Item Value Reference Range Interpretation Comme nts HEPATITIS A IgM (test code = 04482) NON-REACTIVE HEPATITIS B CORE IgM (test c ode = 4644) NON-REACTIVE HEPATITIS B SURF AG (test co de = 2739) NON-REACTIVE HEPATITIS C ANTIBODY (test c ode = 4675) NON-REACTIVE INTERPRETATION HEPATITIS A: (test code = 2552) (NOTE) INTERPRETATION HEPATITIS B: (test code = 03289) (NOTE) INTERPRETATION HEPATITIS C: (test code = 88309) (NOTE) CHLAMYDIA, AMPLIFIED, [id number] 00:00:00* Test Item Value Reference Range Interpretation Comme nts CHLAMYDIA, NAAT (test code = 54463) TEST NOT PERFORMED GC, AMPLIFIED, [id number] 00:00:00* Test Item Value Reference Range Interpretation Comme nts GONORRHEA, NAAT (test code = 57535) TEST NOT PERFORMED HIV AB/AG COMBO RFLX [id number] 00:00:00* Test Item Value Reference Range Interpretation Comme nts HIV 1/2 4TH GEN, RFLX CONF ( test code = 3514) NON-REACTIVE HIV AB/AG COMBO RFLX [id number] 00:00:00* Test Item Value Reference Range Interpretation Comme nts HIV 1/2 4TH GEN, RFLX CONF ( test code = 3514) NON-REACTIVE ACUTE HEPATITIS [id number] 00:00:00* Test Item Value Reference Range Interpretation Comme nts HEPATITIS A IgM (test code = 36614) NON-REACTIVE HEPATITIS B CORE IgM (test c ode = 4644) NON-REACTIVE HEPATITIS B SURF AG (test co de = 2739) NON-REACTIVE HEPATITIS C ANTIBODY (test c ode = 4675) NON-REACTIVE INTERPRETATION HEPATITIS A: (test code = 2552) (NOTE) INTERPRETATION HEPATITIS B: (test code = 09886) (NOTE) INTERPRETATION HEPATITIS C: (test code = 55994) (NOTE) ACUTE HEPATITIS [id number] 00:00:00* Test Item Value Reference Range Interpretation Comme nts HEPATITIS A IgM (test code = 08128) NON-REACTIVE HEPATITIS B CORE IgM (test c ode = 4644) NON-REACTIVE HEPATITIS B SURF AG (test co de = 2739) NON-REACTIVE HEPATITIS C ANTIBODY (test c ode = 4675) NON-REACTIVE INTERPRETATION HEPATITIS A: (test code = 2552) (NOTE) INTERPRETATION HEPATITIS B: (test code = 71158) (NOTE) INTERPRETATION HEPATITIS C: (test code = 04639) (NOTE) CHLAMYDIA, AMPLIFIED, [id number] 00:00:00* Test Item Value Reference Range Interpretation Comme nts CHLAMYDIA, NAAT (test code = 17906) TEST NOT PERFORMED GC, AMPLIFIED, [id number] 00:00:00* Test Item Value Reference Range Interpretation Comme nts GONORRHEA, NAAT (test code = 22847) TEST NOT PERFORMED CHLAMYDIA, AMPLIFIED, [id number] 00:00:00* Test Item Value Reference Range Interpretation Comme nts CHLAMYDIA, NAAT (test code = 37310) TEST NOT PERFORMED GC, AMPLIFIED, [id number] 00:00:00* Test Item Value Reference Range Interpretation Comme nts GONORRHEA, NAAT (test code = 97878) TEST NOT PERFORMED [id number] 00:00:00* Test Item Value Reference Range Interpretation Comme nts RPR RESULT (test code = 3501) NON-REACTIVE RPR TITER (test code = 3500) NOT INDIC. TITER [id number] 00:00:00* Test Item Value Reference Range Interpretation Comme nts RPR RESULT (test code = 3501) NON-REACTIVE RPR TITER (test code = 3500) NOT INDIC. TITER [id number] 00:00:00* Test Item Value Reference Range Interpretation Comme nts RPR RESULT (test code = 3501) NON-REACTIVE RPR TITER (test code = 3500) NOT INDIC. TITER CULTURE, [id number] 00:00:00* Test Item Value Reference Range Interpretation Comme nts CULTURE, URINE (test code = 05412) SPECIMEN NUMBER: [id number] CULTURE, [id number] 00:00:00* Test Item Value Reference Range Interpretation Comme nts CULTURE, URINE (test code = 48984) SPECIMEN NUMBER: [id number] CULTURE, [id number] 00:00:00* Test Item Value Reference Range Interpretation Comme nts CULTURE, URINE (test code = 11772) SPECIMEN NUMBER: [id number] CHLAMYDIA, AMPLIFIED, [id number] 00:00:00* Test Item Value Reference Range Interpretation Comme nts CHLAMYDIA, NAAT (test code = 48388) NEGATIVE GC, AMPLIFIED, [id number] 00:00:00* Test Item Value Reference Range Interpretation Comme nts GONORRHEA, NAAT (test code = 75859) NEGATIVE HIV AB/AG COMBO RFLX [id number] 00:00:00* Test Item Value Reference Range Interpretation Comme nts HIV 1/2 4TH GEN, RFLX CONF ( test code = 3514) NON-REACTIVE [id number] 00:00:00* Test Item Value Reference Range Interpretation Comme nts RPR RESULT (test code = 3501) NON-REACTIVE RPR TITER (test code = 3500) NOT INDIC. TITER CHLAMYDIA, AMPLIFIED, [id number] 00:00:00* Test Item Value Reference Range Interpretation Comme nts CHLAMYDIA, NAAT (test code = 51476) NEGATIVE CHLAMYDIA, AMPLIFIED, [id number] 00:00:00* Test Item Value Reference Range Interpretation Comme nts CHLAMYDIA, NAAT (test code = 25526) NEGATIVE GC, AMPLIFIED, [id number] 00:00:00* Test Item Value Reference Range Interpretation Comme nts GONORRHEA, NAAT (test code = 21073) NEGATIVE HIV AB/AG COMBO RFLX [id number] 00:00:00* Test Item Value Reference Range Interpretation Comme nts HIV 1/2 4TH GEN, RFLX CONF ( test code = 3514) NON-REACTIVE [id number] 00:00:00* Test Item Value Reference Range Interpretation Comme nts RPR RESULT (test code = 3501) NON-REACTIVE RPR TITER (test code = 3500) NOT INDIC. TITER GC, AMPLIFIED, [id number] 00:00:00* Test Item Value Reference Range Interpretation Comme nts GONORRHEA, NAAT (test code = 67182) NEGATIVE HIV AB/AG COMBO RFLX [id number] 00:00:00* Test Item Value Reference Range Interpretation Comme nts HIV 1/2 4TH GEN, RFLX CONF ( test code = 3514) NON-REACTIVE [id number] 00:00:00* Test Item Value Reference Range Interpretation Comme nts RPR RESULT (test code = 3501) NON-REACTIVE RPR TITER (test code = 3500) NOT INDIC. TITER VAGINAL PATHOGENS DNA [id number] 00:00:00* Test Item Value Reference Range Interpretation Comme nts BEATA SPECIES (test code = ) NEGATIVE G. VAGINALIS (test code = 67633) NEGATIVE T. VAGINALIS (test code = 21371) NEGATIVE VAGINAL PATHOGENS DNA [id number] 00:00:00* Test Item Value Reference Range Interpretation Comme nts BEATA SPECIES (test code = 96719) NEGATIVE G. VAGINALIS (test code = 29669) NEGATIVE T. VAGINALIS (test code = 75426) NEGATIVE VAGINAL PATHOGENS DNA [id number] 00:00:00* Test Item Value Reference Range Interpretation Comme nts BEATA SPECIES (test code = 23724) NEGATIVE G. VAGINALIS (test code = 47089) NEGATIVE T. VAGINALIS (test code = 98063) NEGATIVE COMPREHENSIVE METABOLIC [id number] 00:00:00* Test Item Value Reference Range Interpretation Comme nts GLUCOSE (test code = 2217) 94 MG/DL BUN (test code = 2208) 11 MG/DL CREATININE (test code = 2214) 0.63 MG/DL eGFR AMER. (test cod e = 07560) 140 ML/MIN/1.73 eGFR NON- AMER. (test code = 11443) 120 ML/MIN/1.73 CALC BUN/CREAT (test code = [...] code = 2219) 30 U/L COMPREHENSIVE METABOLIC [id number] 00:00:00* Test Item Value Reference Range Interpretation Comme nts GLUCOSE (test code = 2217) 94 MG/DL BUN (test code = 2208) 11 MG/DL CREATININE (test code = 2214) 0.63 MG/DL eGFR AMER. (test cod e = 84630) 140 ML/MIN/1.73 eGFR NON- AMER. (test code = 73449) 120 ML/MIN/1.73 CALC BUN/CREAT (test code = [...] code = 2219) 30 U/L COMPREHENSIVE METABOLIC [id number] 00:00:00* Test Item Value Reference Range Interpretation Comme nts GLUCOSE (test code = 2217) 94 MG/DL BUN (test code = 2208) 11 MG/DL CREATININE (test code = 2214) 0.63 MG/DL eGFR AMER. (test cod e = 24105) 140 ML/MIN/1.73 eGFR NON- AMER. (test code = 79954) 120 ML/MIN/1.73 CALC BUN/CREAT (test code = [...] = 2219) 30 U/L PAP TEST, THINPREP, [id number] 00:00:00* Test Item Value Reference Range Interpretation Comme nts SOURCE: (test code = 8001) Cervical/Endocervical SLIDES: (test code = 8011) 1 LMP: (test code = 8021) 2020-09-03 SPECIMEN ADEQUACY: (test code = 16086) (NOTE) INTERPRETATION: (test code = 39155) NILM/NO EPITH. ABNORMALITY;SEE BELOW OTHER COMMENTS: (test code = 8081) (NOTE) YOKER MACHINE OPERATOR: (test code = 8101) OLIVER Gomez(ASCP)IAC LOCATION: (test code = 22314) (NOTE) CPT: (test code = 8140) (NOTE) PAP TEST, THINPREP, [id number] 00:00:00* Test Item Value Reference Range Interpretation Comme nts SOURCE: (test code = 8001) Cervical/Endocervical SLIDES: (test code = 8011) 1 LMP: (test code = 8021) 2020-09-03 SPECIMEN ADEQUACY: (test code = 88796) (NOTE) INTERPRETATION: (test code = 71388) NILM/NO EPITH. ABNORMALITY;SEE BELOW OTHER COMMENTS: (test code = 8081) (NOTE) YOKER MACHINE OPERATOR: (test code = 8101) OLIVER Gomez(ASCP)IAC LOCATION: (test code = 90576) (NOTE) CPT: (test code = 8140) (NOTE) PAP TEST, THINPREP, [id number] 00:00:00* Test Item Value Reference Range Interpretation Comme nts SOURCE: (test code = 8001) Cervical/Endocervical SLIDES: (test code = 8011) 1 LMP: (test code = 8021) 2020-09-03 SPECIMEN ADEQUACY: (test code = 23653) (NOTE) INTERPRETATION: (test code = 85168) NILM/NO EPITH. ABNORMALITY;SEE BELOW OTHER COMMENTS: (test code = 8081) (NOTE) YOKER MACHINE OPERATOR: (test code = 8101) Katherin Ferrari, CT(ASCP)IAC LOCATION: (test code = 46706) (NOTE) CPT: (test code = 8140) (NOTE) HIV AB/AG COMBO RFLX [id number] 00:00:00* Test Item Value Reference Range Interpretation Comme nts HIV 1/2 4TH GEN, RFLX CONF ( test code = 3514) NON-REACTIVE GC AND CHLAMYDIA AMPLIFIED, [id number] 00:00:00* Test Item Value Reference Range Interpretation Comme nts GONORRHEA, TMA (test code = 27144) NEGATIVE CHLAMYDIA, TMA (test code = 45029) NEGATIVE [id number] 00:00:00* Test Item Value Reference Range Interpretation Comme nts RPR RESULT (test code = 3501) NON-REACTIVE RPR TITER (test code = 3500) NOT INDIC. TITER HIV AB/AG COMBO RFLX [id number] 00:00:00* Test Item Value Reference Range Interpretation Comme nts HIV 1/2 4TH GEN, RFLX CONF ( test code = 3514) NON-REACTIVE [id number] 00:00:00* Test Item Value Reference Range Interpretation Comme nts TESTOSTERONE (test code = 2830) 43 NG/DL HPV HIGH RISK WITH GENOTYPE, [id number] 00:00:00* Test Item Value Reference Range Interpretation Comme [facility] HPV HIGH RISK INTERP (test c ode = 19863) NEGATIVE HPV 16 (test code = 34495) NEGATIVE HPV 18 (test code = 65227) NEGATIVE HPV, HR, OTHER GENOTYPES (te st code = 33182) NEGATIVE GC AND CHLAMYDIA AMPLIFIED, [id number] 00:00:00* Test Item Value Reference Range Interpretation Comme nts GONORRHEA, TMA (test code = 50610) NEGATIVE CHLAMYDIA, TMA (test code = 72400) NEGATIVE FSH + LH [id number] 00:00:00* Test Item Value Reference Range Interpretation Comme nts FOLLICLE STIM HORMONE (test code = 2700) 7.0 IU/L LUTEINIZING HORMONE (test co de = 2776) 12.1 IU/L [id number] 00:00:00* Test Item Value Reference Range Interpretation Comme nts PROLACTIN (test code = 2800) 12.5 NG/ML [id number] 00:00:00* Test Item Value Reference Range Interpretation Comme nts ESTRADIOL (test code = 2505) 39.3 PG/ML HIV AB/AG COMBO RFLX [id number] 00:00:00* Test Item Value Reference Range Interpretation Comme nts HIV 1/2 4TH GEN, RFLX CONF ( test code = 3514) NON-REACTIVE [id number] 00:00:00* Test Item Value Reference Range Interpretation Comme nts RPR RESULT (test code = 3501) NON-REACTIVE RPR TITER (test code = 3500) NOT INDIC. TITER GC AND CHLAMYDIA AMPLIFIED, [id number] 00:00:00* Test Item Value Reference Range Interpretation Comme nts GONORRHEA, TMA (test code = 15461) NEGATIVE CHLAMYDIA, TMA (test code = 83830) NEGATIVE [id number] 00:00:00* Test Item Value Reference Range Interpretation Comme nts RPR RESULT (test code = 3501) NON-REACTIVE RPR TITER (test code = 3500) NOT INDIC. TITER HPV HIGH RISK WITH GENOTYPE, [id number] 00:00:00* Test Item Value Reference Range Interpretation Comme [facility] HPV HIGH RISK INTERP (test c ode = 41532) NEGATIVE HPV 16 (test code = 60773) NEGATIVE HPV 18 (test code = 83870) NEGATIVE HPV, HR, OTHER GENOTYPES (te st code = 59874) NEGATIVE [id number] 00:00:00* Test Item Value Reference Range Interpretation Comme [facility] TESTOSTERONE (test code = 2830) 43 NG/DL FSH + LH [id number] 00:00:00* Test Item Value Reference Range Interpretation Comme nts FOLLICLE STIM HORMONE (test code = 2700) 7.0 IU/L LUTEINIZING HORMONE (test co de = 9246) 12.1 IU/L [id number] 00:00:00* Test Item Value Reference Range Interpretation Comme nts PROLACTIN (test code = 2800) 12.5 NG/ML [id number] 00:00:00* Test Item Value Reference Range Interpretation Comme [facility] ESTRADIOL (test code = 2505) 39.3 PG/ML [id number] 00:00:00* Test Item Value Reference Range Interpretation Comme nts TESTOSTERONE (test code = 2830) 43 NG/DL HPV HIGH RISK WITH GENOTYPE, [id number] 00:00:00* Test Item Value Reference Range Interpretation Comme nts HPV HIGH RISK INTERP (test c ode = 08950) NEGATIVE HPV 16 (test code = 97178) NEGATIVE HPV 18 (test code = 45408) NEGATIVE HPV, HR, OTHER GENOTYPES (te st code = 36496) NEGATIVE FSH + LH [id number] 00:00:00* Test Item Value Reference Range Interpretation Comme nts FOLLICLE STIM HORMONE (test code = 2700) 7.0 IU/L LUTEINIZING HORMONE (test co de = 2776) 12.1 IU/L [id number] 00:00:00* Test Item Value Reference Range Interpretation Comme nts PROLACTIN (test code = 2800) 12.5 NG/ML [id number] 00:00:00* Test Item Value Reference Range Interpretation Comme nts ESTRADIOL (test code = 2505) 39.3 PG/ML VAGINAL PATHOGENS DNA [id number] 00:00:00* Test Item Value Reference Range Interpretation Comme nts BEATA SPECIES (test code = 30992) NEGATIVE G. VAGINALIS (test code = 92970) NEGATIVE T. VAGINALIS (test code = 99610) POSITIVE VAGINAL PATHOGENS DNA [id number] 00:00:00* Test Item Value Reference Range Interpretation Comme nts BEATA SPECIES (test code = 82205) NEGATIVE G. VAGINALIS (test code = 48183) NEGATIVE T. VAGINALIS (test code = 56037) POSITIVE VAGINAL PATHOGENS DNA [id number] 00:00:00* Test Item Value Reference Range Interpretation Comme nts BEATA SPECIES (test code = 43700) NEGATIVE G. VAGINALIS (test code = 23063) NEGATIVE T. VAGINALIS (test code = 66174) POSITIVE History and Physical Notes Date/Time Note Provider Source 2023-03-24 07:55:58 Formatting of this n ote is different from the original. TRIAGE HISTORY & PHYSICAL IDENTIFYING DATA Vladislav Rodas is 32 year old, /White, 39w4d, female with SYLVIA 03/27/2023, by Last Menstrual Period. : 1990 Primary Care Physician: PATIENT DOES NOT HAVE A PCP CHIEF COMPLAINT Induction at 39 weeks HISTORY OF PRESENT ILLNESS Vladislav Rodas is a 32 year old female @ 39w4d +FM. No VB, LOF. + CTX. No pre-eclampsia sx or other complaints. PAST OBSTETRIC HISTORY OB History Para Term AB Living 1 SAB IAB Ectopic Multiple Live Births # Outcome Date GA Lbr Dylon/2nd Weight Sex Delivery Anes PTL Lv 1 Current PAST MEDICAL HISTORY Problem list: Patient Active Problem List Diagnosis Date [...] EXTRACTION N/A 06/08/2017 Surgeon: Suresh Bosch; Location: [facility] Past Medical History: Diagnosis Date Asthma Heart murmur Seasonal allergies CURRENT HEALTH STATUS Medications: Current Facility-Administered Medications Medication Dose Route Frequency [...] and drug reactions: Patient has no known allergies. HOME MEDICATIONS Medications Prior to Admission Medication Sig Dispense Refill Last Dose albuterol 90 mcg/actuation inhaler Inhale 2 Puffs every 6 (six) hours as needed for Wheezing, Shortness of Breath, Bronchospasm or Chest tightness. 8.5 g 1 Not Taking omeprazole 20 mg capsule Take 1 capsule by mouth in the morning. 30 capsule 2 Not Taking SOCIAL HISTORY Tobacco History: Social History Tobacco Use Smoking Status Former Packs/day: 0.25 Types: Cigarettes Quit date: 08/22/2014 Years since quittin.5 Smokeless Tobacco Never Drug History: Social History Substance and Sexual Activity Drug Use Not Currently Comment: 2014 Alcohol History: Social History Substance and Sexual Activity Alcohol Use Not Currently FAMILY HISTORY Family History Problem Relation Age of Onset Diabetes Mother Diabetes Maternal Grandmother Osteoporosis Paternal Grandmother REVIEW OF SYSTEMS General: negative Constitutional: negative Eyes: negative ENT/Mouth: negative Cardiovascular: negative Respiratory: negative Gastrointestinal:negative Genitourinary: negative Musculoskeletal: negative Skin/breast: negative Neurological: negative Psychiatric: negative Endocrine: negative Hemat/Lymph: negative Allergic/Immuno:none VITAL SIGNS BP: (105-129)/(50-81) Temp: [36.1 ?C (97 ?F)] Temp source: Temporal Artery (03/24 0700) Pulse: [71-84] Resp: [16-18] SpO2: [100 %] Height: [149.9 cm (4' 11")] Weight: [82.7 kg (182 lb 6.4 oz)] BMI (calculated): [36.84] PHYSICAL EXAMINATIONS Gen: alert and oriented, well appearing, no distress CV: RRR, normal S1/S2, no m/r/g Resp: normal work of breathing, lungs CTAB Abd: gravid, soft, NTTP Ext: no calf tenderness or edema : SVE 3/80/-3, status post AROM (minimal clear fluid) REVIEW OF LABORATORY, PATHOLOGY, AND RADIOLOGY DATA Lab results: Type & Screen HIV Hep B Syphilis Chlamydia [...] found for: "RUBG" No results found for: "GQLD9FA" No results found for: "CGBS" HGB Date [...] 30-39.9) Obesity in , antepartum Positive GBS test Placenta Accreta Screening Prior ? : No Prior Uterine Surgery?: No Placenta low lying/previa in current ? : No Screening outcome: A positive screening outcome indicates a history of prior delivery or prior uterine surgery, AND the presence of either a placenta low lying/previa or ultrasound suspicion of PASD in the current . Negative screening. ASSESSMENT AND PLAN Vladislav Rodas is a 32 year old female @ 39w4d here for an elective induction. Induction -Status post AROM. Misoprostol for cervical ripening. Will start Pitocin per protocol. - Cephalic presentation confirmed - GBS positive: PCN ordered - Roland EFW less than [address] Washburn, please see OB Summary for more details Mendoza Washburn MD 03/24/2023 8:26 AM T [facility] - [facility] Procedure Notes Date/Time Note Provider Source 2023-03-24 09:46:31 Associated Order(s): Central Neuraxial Block Central Neuraxial Block Date/Time: 03/24/2023 8:45 AM Performed by: Antelmo Irwin CRNA Authorized by: Stalin Blake MD Patient Location: OB End Time: 03/24/2023 9:27 AM Reason for Block: OB request, Patient request, Labor analgesia, Surgical anesthesia and Post-op pain management Staff: Anesthesiologist: Stalin Blake MD Resident/BRAN MIXER: Antelmo Irwin CRNA Performed by: anesthesiologist Preanesthetic Checklist: patient identified, IV checked, risks and benefits explained, monitors and equipment checked, timeout performed, pre-op evaluation, site marked and anesthesia consent Procedure: Type of Neuraxial: Epidural Epidural Description: 1st attempt Sterility Prep gloves, cap, drape, hand hygiene and mask Sedation Level no sedation Patient Position: sitting Prep: Betadine and patient draped Monitoring: heart rate, continuous pulse ox, heart rate / toco and NIBP Location: lumbar (1-5) Lumbar: L4-L5 Approach: midline Technique: GABRIELA air and catheter Guidance with: landmark technique} Epidural/Spinal [facility] and/or Catheter: Epidural/Spinal Kit: Alexander Needle Type: Tuohy Needle Gauge: 17 G Needle Length: 3.5 in (8.89 cm) Needle Insertion Depth: 5 Catheter Type: multiport Catheter Size: 19 G Catheter at Skin Depth: 12 Number of Attempts: 3 Test Dose: lidocaine 1.5% with epinephrine 1-to-200,000 and negative Dose: 3 cc and 5 cc Catheter Securement Method: surgical tape and Tegaderm Assessment: Sensory Level: above T10 Block Outcome: no apparent complications Procedure Assessment: patient tolerated procedure well with no complications Notes: BRAN MIXER attempted twice unsuccessful; MDA x 1 attempt successful Smooth and atraumatic, (+) Local, (+) STF NACR-NURSE WOOD MOLDER,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 ROUTINE VISIT 03/15/2023 3:22 PM SUBJECTIVE Vladislav Rodas is a 32 year old at 38w2d who presents for routine visit. She has no complaints today: loss of fluid, vaginal bleeding, and signs or symptoms of pre-eclampsia. Good movement. Occasional contractions. OBJECTIVE BP 118/72 (BP Location: Left arm, Patient Position: Sitting, BP CUFF SIZE: Adult Medium) | Pulse 86 | Temp 36.8 ?C (98.2 ?F) (Oral) | Resp 18 | Ht 4' 11" (1.499 m) | Wt 179 lb 3.2 oz (81.3 kg) | LMP 06/20/2022 | SpO2 99% | BMI 36.19 kg/m? Physical Exam: Gen: A&Ox3, NAD CV: RRR, Pulm: No labored breathing Abd: Soft, gravid, NTTP, ND, no rebound or guarding Ext: No calf tenderness : deferred ASSESSMENT: Vladislav Rodas is a 32 year old [...] of lower genitourinary sites Obesity (BMI 30-39.9) PLAN 1. High-risk in third trimester 2. 38 weeks gestation of - POCT URINALYSIS W/O SPECIFIC GRAVITY +GBS bacteruria, will need abx in labor. -- labor warnings reviewed --All questions answered [facility] Notes Date/Time Note Provider Source 2023-09-29 12:18:05 PT D/C home. GCS15, VS stable. Given D/C paperwork. Pt ambulatory at time of discharge. Pt educated on med usage, follow up care, s/s worsening condition, need for hydration. Pt verbalized understanding. Pt ambulated from ED in NAD. [facility] 2023-09-29 11:05:56 Pt presents with headache, congestion, runny nose, [...] BC inserted in my arm and I did" No meds taken AD CLERK LMP: Sept AN Morillo RN [facility] 2023-09-29 10:46:00 [facility] Emergency Department Note Demographics Patient Name: Vladislav Rodas Date of : 1990 33 year old Treatment Room: [place] [address] Primary Care Physician: Giulia Quintero Pre Hospital Care Patient Escorted by: Self [9] Mode of Arrival: Personal means [1] EMS Treatment Prior to ED Arrival: ED Events Date/Time Event User Comments 09/29/23 1110 Medical Screening Begins HOSSEIN GARCIA MD -- 09/29/23 1110 First Provider Evaluation HOSSEIN GARCIA MD -- Chief complaint Chief Complaint Patient presents with Cough Congestion ED Triage Notes Nikki Morillo RN 09/29/2023 11:11 Pt presents with headache, congestion, runny nose, [...] BC inserted in my arm and I did" No meds taken AD CLERK LMP: Apr Original note by Nikki Morillo, RN at 09/29/2023 11:09 Chief Complaint Patient presents with Cough Congestion History of present illness HPI 33 yo woman comes to the ED complaining of URI symptoms for the last few days. She also reports being concerned with the possibility of . Denies any chronic medical problems or medications. BP 133/81 | Pulse 97 | Temp 36.7 ?C (98.1 ?F) | Resp 16 | Ht 1.499 m (4' 11") | Wt 87.1 kg (192 lb) | SpO2 99% | BMI 38.78 kg/m? Past Medical and Social History Past Medical History: Diagnosis Date Asthma Heart murmur Seasonal allergies Tetanus received in last 5 years: Yes Social History Tobacco Use Smoking status: Former Packs/day: .25 Types: Cigarettes Quit date: 08/22/2014 Years since quittin.1 Smokeless tobacco: Never Vaping Use Vaping Use: Never used Substance Use Topics Alcohol use: Not Currently Drug use: Not Currently Comment: 2014 Past Surgical History Past Surgical History: Procedure Laterality Date SURGICAL EXT TOOTH COMP PATY [id number]-[id number] 06/08/2017 SURGICAL EXTRACTION - ERUPTED TEETH 06/08/2017 TOOTH EXTRACTION N/A 06/08/2017 Surgeon: Suresh Bosch; Location: [facility] Medications Medications - No data to display Allergies No Known Allergies Review of Systems Review of Systems Constitutional: Negative. HENT: Positive for congestion and rhinorrhea. Eyes: Negative. Respiratory: Positive for cough. Cardiovascular: Negative. Gastrointestinal: Negative. Genitourinary: Negative. Musculoskeletal: Negative. Skin: Negative. Neurological: Negative. Psychiatric/Behavioral: Negative. Endocrine: Endocrine negative Physical Exam BP 133/81 | Pulse 97 | Temp 36.7 ?C (98.1 ?F) | Resp 16 | Ht 1.499 m (4' 11") | Wt 87.1 kg (192 lb) | SpO2 99% | BMI 38.78 kg/m? Physical Exam Vitals and nursing note reviewed. Constitutional: General: She is not in acute distress. Appearance: She is well-developed and normal weight. She is not ill-appearing. HENT: Head: Normocephalic and atraumatic. Right Ear: External ear normal. Left Ear: External ear normal. Nose: Congestion and rhinorrhea present. Mouth/Throat: Pharynx: No oropharyngeal exudate or posterior oropharyngeal erythema. Eyes: General: Right eye: No discharge. Left eye: No discharge. Conjunctiva/sclera: Conjunctivae normal. Pupils: Pupils are equal, round, and reactive to light. Cardiovascular: Rate and Rhythm: Normal rate and regular rhythm. Heart sounds: Normal heart sounds. No murmur heard. No friction rub. Pulmonary: Effort: Pulmonary effort is normal. No respiratory distress. Breath sounds: Normal breath sounds. No stridor. No wheezing or rhonchi. Abdominal: General: Bowel sounds are normal. There is no distension. Palpations: Abdomen is soft. There is no mass. Tenderness: There is no abdominal tenderness. Hernia: No hernia is present. Musculoskeletal: General: No swelling, tenderness, deformity or signs of injury. Normal range of motion. Cervical back: Normal range of motion and neck supple. No rigidity or tenderness. Skin: General: Skin is warm. Capillary Refill: Capillary refill takes less than 2 seconds. Coloration: Skin is not jaundiced or pale. Findings: No bruising or erythema. Neurological: General: No focal deficit present. Mental Status: She is alert and oriented to person, place, and time. Cranial Nerves: No cranial nerve deficit. Sensory: No sensory deficit. Motor: No weakness. Coordination: Coordination normal. Psychiatric: Mood and Affect: Mood normal. Behavior: Behavior normal. Thought Content: Thought content normal. Judgment: Judgment normal. Labs and Studies Lab Results POCT TEST - Normal Result Value Ref Range POCT PREG Negative On board controls acceptable with C Line Yes POCT PREG LOT # [id number] POCT PREG TEST DATE 11/27/2024 No orders to display Orders and Treatments Orders Placed This Encounter Procedures POCT TEST No orders of the defined types were placed in this encounter. Patient's Medications START taking these medications No medications on file CONTINUE taking these medications which have NOT CHANGED ALBUTEROL 90 MCG/ACTUATION INHALER Inhale 2 Puffs every 6 (six) hours as needed for Wheezing, Shortness of Breath, Bronchospasm or Chest tightness. FERROUS SULFATE 325 MG (65 MG IRON) TABLET Take 1 tablet by mouth in the morning and 1 tablet in the evening. METHYLPREDNISOLONE (MEDROL, ZULAY,) 4 MG TABLETS Take by mouth SEE-INSTRUCTIONS. follow package directions START taking Modified Medications as Prescribed No medications on file STOP taking these medications No medications on file Procedures Procedures Evidence Care MDM & Notes Patient was evaluated for an emergency medical condition related to Cough and Congestion History and/or review of systems is limited by:History limited: None. Medical Decision Making 33 yo woman comes to the ED complaining of URI symptoms for the last few days. She also reports being concerned with the possibility of . Denies any chronic medical problems or medications. BP 133/81 | Pulse 97 | Temp 36.7 ?C (98.1 ?F) | Resp 16 | Ht 1.499 m (4' 11") | Wt 87.1 kg (192 lb) | SpO2 99% | BMI 38.78 kg/m? DDx include but not limited to: URI, r/o Plan: 33 yo woman comes to the ED complaining of URI symptoms for the last few days. She also reports being concerned with the possibility of . test negative, advised to continue OTC medications for URI, f/u with PCP and return to the ED if worsening of symptoms. Problems Addressed: Upper respiratory tract infection, unspecified type: complicated acute illness or injury Amount and/or Complexity of Data Reviewed Labs: ordered. Decision-making details documented in ED Course. Details: Neg Risk OTC drugs. Diagnosis/Impression as of 09/29/23 1144 Upper respiratory tract infection, unspecified type Case discussed with: Barriers & Social Determinants of Healthcare: none Limitations to patient care and compliance: none. History, physical exam findings, results of visit, differential diagnosis, medication regimens and plan of future care have been considered. Additional MDM may be found in the ED course. Differential diagnosis considered and final disposition made based on information gathered during evaluation and may not be completely ruled out or specifically listed. Vital signs were rechecked before final disposition and determined to be stable. Diagnoses ICD-10-CM 1. Upper respiratory tract infection, unspecified type J06.9 Disposition and Condition ED Disposition ED Disposition Disch - Home Condition Stable Comment -- Patient's Medications START taking these medications No medications on file CONTINUE taking these medications which have NOT CHANGED ALBUTEROL 90 MCG/ACTUATION INHALER Inhale 2 Puffs every 6 (six) hours as needed for Wheezing, Shortness of Breath, Bronchospasm or Chest tightness. FERROUS SULFATE 325 MG (65 MG IRON) TABLET Take 1 tablet by mouth in the morning and 1 tablet in the evening. METHYLPREDNISOLONE (MEDROL, UZLAY,) 4 MG TABLETS Take by mouth SEE-INSTRUCTIONS. follow package directions START taking Modified Medications as Prescribed No medications on file STOP taking these medications No medications on file Future Appointments Today Giulia Quintero, TG [facility], [facility] In 1 month Mendoza Washburn MD [facility] [employer] is used frequently and may produce errors. Promptly contact for obvious discrepancies. Hossein Garcia MD, FACEP, FAAEM [employer] [facility] Internal Medicine [facility], [id number] Hossein Garcia MD 09/29/[address] [facility] 2023-04-28 08:57:13 Formatting of this n ote might be different from the original. Patient states she will pick letter up at [facility] [facility]. Letter ready for steel pickler. Camilo Mercer RN 04/28/2023 8:57 AM Camilo eMrcer RN [facility] 2023-04-27 17:14:23 Formatting of this n ote might be different from the original. Vladislav Rodas is a 32 year old female Patient calling to request a letter to be able to lift between 10 - 50 pounds for work so there are no limitations. Since she had a baby Mar 24 Manolo Chung [facility] 2023-03-30 14:01:28 Formatting of this n ote might be different from the original. Patient walked in to clinic requesting return to work letter. Dr. Washburn approved patient to return to work under the restriction of not lifting more than 20 pounds. Return to work letter handed to patient in clinic. Camilo Mercer RN 03/30/2023 2:07 PM Camilo Mercer RN [facility] 2023-03-25 19:49:54 Formatting of this n ote might be different from the original. Problem: Falls, Risk of Goal: Absence of falls Outcome: Progressing as expected Problem: Pain Goal: Control of pain at or below patient's documented comfort goal Outcome: Progressing as expected Goal: Reduction in pain sensation Outcome: Progressing as expected Problem: Discharge Planning - Goal: Adequate for discharge Outcome: Progressing as expected Goal: Mood stable Outcome: Progressing as expected Problem: Bleeding, Risk of Goal: Absence of impaired coagulation signs and symptoms Outcome: Progressing as expected Goal: Absence of active bleeding Outcome: Progressing as expected Problem: Infection Risk Goal: Absence of infection Outcome: Progressing as expected Problem: Coping - Ineffective, Individual Goal: Effective coping Outcome: Progressing as expected Goal: Knowledge of positive coping patterns Outcome: Progressing as expected Problem: Breast-feeding - Ineffective Goal: Effective breast-feeding Outcome: Progressing as expected Quinton Gonzalez RN [facility] 2023-03-25 18:42:30 Formatting of this n ote might be different from the original. Problem: Falls, Risk of Goal: Absence of falls Outcome: Progressing as expected Problem: Pain Goal: Control of pain at or below patient's documented comfort goal Outcome: Progressing as expected Goal: Reduction in pain sensation Outcome: Progressing as expected Problem: Discharge Planning - Goal: Adequate for discharge Outcome: Progressing as expected Goal: Mood stable Outcome: Progressing as expected Problem: Bleeding, Risk of Goal: Absence of impaired coagulation signs and symptoms Outcome: Progressing as expected Goal: Absence of active bleeding Outcome: Progressing as expected Problem: Infection Risk Goal: Absence of infection Outcome: Progressing as expected Problem: Coping - Ineffective, Individual Goal: Effective coping Outcome: Progressing as expected Goal: Knowledge of positive coping patterns Outcome: Progressing as expected Problem: Breast-feeding - Ineffective Goal: Effective breast-feeding Outcome: Progressing as expected Surpiya Peña RN [facility] 2023-03-25 01:45:00 Summary: i nitial consult This note was copied from a baby's chart. Evaluation Situation Initial visit Background Baby Boy is 1 day old, born weighing 3410g, and has lost -2.35 of weight. Gestational Age: 39w4d at INFANT FEEDING STATUS Formula supplementation MATERNAL STATUS Assessment, Recommendations, Education Visited mom to offer assistance with . Mom states she has tried to latch but was unable to. Mom states she is currently trying to decide if she really wants to breastfeed. I discussed with mom the benefits of for mom and baby. I encouraged mom to request assistance at the next feeding for assistance with latching to the breast. Mom verbalized understanding. Mom instructed on how to contact Prototype Technician for assistance with feedings or to answer questions while in the hospital. Mom verbalized understanding. YENNY Wayne, RN, IBCLC Attila Richards RN [facility] 2023-03-25 00:00:36 Formatting of this n ote might be different from the original. Problem: Intrapartum process (including labor pain) Goal: Reduction in pain sensation 03/24/[id number] by Quinton Gonzalez RN Outcome: Progressing as expected 03/24/20232357 by Quinton Gonzalez RN Outcome: Progressing as expected Problem: Falls, Risk of Goal: Absence of falls 03/24/[id number] by Quinton Gonzalez RN Outcome: Progressing as expected 03/24/20232357 by Quinton Gonzalez RN Outcome: Progressing as expected Problem: Pain Goal: Control of pain at or below patient's documented comfort goal 03/24/[id number] by Quinton Gonzalez RN Outcome: Progressing as expected 03/24/20232357 by Quinton Gonzalez RN Outcome: Progressing as expected Goal: Reduction in pain sensation 03/24/[id number] by Quinton Gonzalez RN Outcome: Progressing as expected 03/24/20232357 by Quinton oGnzalez RN Outcome: Progressing as expected Problem: Discharge Planning - Goal: Adequate for discharge 03/24/20232358 by Quinton Gonzalez RN Outcome: Progressing as expected 03/24/20232357 by Quinton Gonzalez RN Outcome: Progressing as expected Goal: Mood stable 03/24/20232358 by Quinton Gonzalez RN Outcome: Progressing as expected 03/24/20232357 by Quinton Gonzalez RN Outcome: Progressing as expected [facility] 2023-03-24 23:59:12 Formatting of this n ote might be different from the original. Problem: Intrapartum process (including labor pain) Goal: Adequate to move to next level of care Outcome: Progressing as expected Goal: Reduction in pain sensation Outcome: Progressing as expected Problem: Falls, Risk of Goal: Absence of falls Outcome: Progressing as expected Problem: Pain Goal: Control of pain at or below patient's documented comfort goal Outcome: Progressing as expected Goal: Reduction in pain sensation Outcome: Progressing as expected Problem: Discharge Planning - Goal: Adequate for discharge Outcome: Progressing as expected Goal: Mood stable Outcome: Progressing as expected [facility] 2023-03-24 21:36:30 Formatting of this n ote is different from the original. Patient: Vladislav Rodas Procedure Summary Date: 03/24/23 Room / Location: Anesthesia Start: 844 Anesthesia Stop: 2135 Procedure: CENTRAL NEURAXIAL BLOCK Diagnosis: Scheduled Providers: Responsible Provider: Beckie Mace MD Anesthesia Type: Epidural ASA Status: 3 Anesthesia Type: No value filed. Last vitals BP Temp Pulse Resp SpO2 There were no known notable events for this encounter. Anesthesia Post Evaluation Patient location during evaluation: bedside Patient participation: complete - patient participated Level of consciousness: awake and alert Pain management: satisfactory to patient Airway patency: patent Cardiovascular status: acceptable and blood pressure returned to baseline Respiratory status: acceptable Hydration status: acceptable Comments: Anesthesia SULEMA Post Operative Faculty Note Date of service: 03/24/2023 Patient is s/p labor epidural placement and removal. Patient examined, patient awake. Patient participation in post anesthesia evaluation: Block not fully resolved, as expected. Patient participated otherwise. Patient advised about fall precautions. Vital Signs: BP 134/78 | Pulse 88 | Temp 37.1 ?C (98.7 ?F) | Resp 20 | Ht 1.499 m (4' 11") | Wt 82.7 kg (182 lb 6.4 oz) | LMP 06/20/2022 | SpO2 100% | BMI 36.84 kg/m? Pain: Scale used: 0 - 10 Ratin Nausea and vomiting: Not present. Post operative/post procedure hydration status: Euvolemic. Post-operative course: Block resolving appropriately, and patient advised about fall precautions as noted above. Complications: No apparent complications Beckie Mace MD 03/24/2023 21:36 AN-ANESTHESIOLOGY ANESTHESIOLOGIST [facility] 2023-03-24 20:52:03 Formatting of this n ote is different from the original. DELIVERY BY VACUUM-ASSISTED VAGINAL DELIVERY Delivery Date: 03/24/2023 Delivery Time: 8:26 PM Delivery Summary Vladislav Rodas is a 32 year old female G1 @ 39w4d The patient was admitted to the Labor & Delivery unit for induction at 39 weeks. Delivery Physician: Mendoza Washburn MD Intrapartum Anesthesia/Analgesia: Epidural Mode of Delivery: Delivery of ocampo fetus with cephalic presentation Fetus Mode of Delivery: Delivery of ocampo fetus with cephalic presentation Delivery: Vacuum Delivery Indication for OVD: maternal fatigue and low station Estimated weight: < 8 # Head station: low Asynclitism: (not recorded) Application of Vacuum: Midposition - [...] from application. Number of tractions with contractions: 2 Number of pop-offs: 0 Head Delivery: As the head crowned and distended the perineum, [...] clear amniotic fluid. A normal, male was delivered. The umbilical cord was double clamped, cut and the was handed off the field to the circulating nurse Placenta Placenta was delivered spontaneously while the abdominal hand lifted the uterus cephalad and other hand keeping the umbilical cord slightly taut. Laceration: First degree labial laceration Laceration Repair: Minor - lacerations (perineum, sidewall, labial, vaginal floor and/or periurethral) were closed with continuous sutures. . Fourth Stage Fourth stage of labor was managed by uterine massage with abdominal hand and infusion 30 units of pitocin mixed with intravenous fluid. EBL: 300 Complications: None Weight: 3410 g 1 Minute 5 Minute 10 Minute Totals: 7 9 Mendoza Washburn MD 03/24/2023 8:53 PM Health 2023-03-24 08:54:28 Formatting of this n ote is different from the original. Name/ MRN / Age / Gender: Vladislav Rodas, [id number] 32 year old female BMI: Estimated body mass index is 36.84 kg/m? as calculated from the following: Height as of an earlier encounter on 03/24/23: 1.499 m (4' 11"). Weight as of an earlier encounter on 03/24/23: 82.7 kg (182 lb 6.4 oz). Allergies: Patient has no known allergies. Last Vitals: BP Readings from Last 1 Encounters: 03/24/23 113/62 Pulse Readings from Last 1 Encounters: 03/24/23 82 SpO2 Readings from Last 1 Encounters: 03/24/23 100% Date of Surgery: 03/24/2023 Surgeon: * No surgeons listed * Procedure: CENTRAL NEURAXIAL BLOCK OR Location: [place] [facility] - OR LOCATION Anesthesia Preop Eval (physical exam) Anesthesia Preop: [id number] NPO Status Verified PONV Risk Factors: female Anesthesia History Anesthesia History Negative per Chart Review Previous Anesthetics/Airways Cardiovascular Negative Cardiac ROS Cardiovascular ROS Negative per Chart Review Pulmonary (+) Asthma Neuro/Musculoskeletal (+) Obesity GI/Hepatic (+) GERD Hematology Negative Hematology ROS Comments: 03/22/23 15:27 WBC x10^3: 10.90 RBC x10^6: 4.63 HGB: 11.9 HCT: 35.9 MCV: 77.5 (L) MCH: 25.7 (L) MCHC: 33.1 RDW-SD: 39.8 RDW-CV: 14.2 PLT x10^3: 395 (H) (L): Data is abnormally low (H): Data is abnormally high Renal Negative Renal ROS Renal ROS Negative per Chart Review Skin (+) Current IV access and 18g Endo/Other Negative Endo/Other ROS Endocrine/other ROS Negative per Chart Review 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 Hold on DOS. Phentermine: Alert [facility] anesthesiologist SGLT2 Inhibitors: "gliflozins" to be held for 3 days prior to elective surgeries MAC Cases: Continue taking ELIA inhibitors and ARBs ASA Classification ASA: 3 ASA Comments: ROUTINE VISIT 03/22/2023 2:11 PM ? SUBJECTIVE Vladislav Rodas is a 32 year old at 39w2d who presents for routine visit. She has irregular contractions; denies loss of fluid, vaginal bleeding, and signs or symptoms of pre-eclampsia. Good movement. ? OBJECTIVE Vitals BP 115/73 (BP Location: Left arm, Patient Position: Sitting, BP CUFF SIZE: Adult Medium) | Pulse 84 | Temp 36.5 ?C (97.7 ?F) | Ht 4' 11" (1.499 m) | Wt 182 lb 6.4 oz (82.7 kg) | LMP 06/20/2022 | BMI 36.84 kg/m? ? FH: 38 FHT: 148 ? Physical Exam: Gen: A&Ox3, NAD CV: RRR Pulm: CTAB Abd: Soft, gravid, NTTP, no rebound or guarding Ext: No calf tenderness : SVE loose /60/ballotable ? Urine Dip: glucose negative, protein negative ? ASSESSMENT: Vladislav Rodas is a 32 year old at 39w2d who presents for routine visit. ? PLAN ? -Irregular contractions: SVE 60/ballotable. Cephalic confirmed on ultrasound today. -Desires induction at 39 weeks. Tentatively plan for 03/24/2023 unless clinically indicated otherwise Current Medications: No outpatient medications have been marked as taking for the 03/24/23 encounter (Anesthesia Event) with Stalin Blake MD. Previous Surgeries: Past Surgical History: Procedure Laterality Date SURGICAL EXT TOOTH COMP PATY IMPACTION-D7240 06/08/2017 SURGICAL EXTRACTION - ERUPTED TEETH 06/08/2017 TOOTH EXTRACTION N/A 06/08/2017 Surgeon: Suresh Bosch; Location: [facility] Anesthesia Physical Exam General no apparent distress and alert and oriented x 3 Neuro/Psych neurological Nonfocal Dental no notable dental hx Abdominal (+) gravid Airway Mallampati score:II TM distance:< 5 cm Mouth opening:normal Extremity Normal extremity Pulmonary pulmonary exam normal Other Cardiovascular cardiovascular exam normalRhythm:Regular Rate: Normal Anesthesia Plan ASA Status: 3 Plan discussed during pre-op evaluation: General, Epidural and Spinal Anesthetic plan on DOS: Epidural Anesthesia plan discussed with: patient or guest relations representative Post-Operative Analgesia: routine analgesia & antiemetics Recovery Plan: LDR Additional comments: AN-ANESTHESIOLOGY ANESTHESIOLOGIST [facility] 2023-03-24 08:50:45 Formatting of this n ote might be different from the original. Problem: Intrapartum process (including labor pain) Goal: Absence of or reduction of complications of labor Outcome: Progressing as expected Goal: Able to cope with pain Outcome: Progressing as expected Goal: Adequate to move to next level of care Outcome: Progressing as expected Goal: Reduction in pain sensation Outcome: Progressing as expected Problem: Falls, Risk of Goal: Absence of falls Outcome: Progressing as expected Problem: Pain Goal: Control of pain at or below patient's documented comfort goal Outcome: Progressing as expected Goal: Reduction in pain sensation Outcome: Progressing as expected Problem: Discharge Planning - Goal: Adequate for discharge Outcome: Progressing as expected Goal: Mood stable Outcome: Progressing as expected Daphney Finley RN [facility] 2023-03-24 07:01:16 Formatting of this n ote is different from the original. Name/ MRN / Age / Gender: Vladislav Rodas, [id number] 32 year old female BMI: Estimated body mass index is 36.84 kg/m? as calculated from the following: Height as of this encounter: 1.499 m (4' 11"). Weight as of this encounter: 82.7 kg (182 lb 6.4 oz). Allergies: Patient has no known allergies. Last Vitals: BP Readings from Last 1 Encounters: 03/24/23 116/74 Pulse Readings from Last 1 Encounters: 03/24/23 77 SpO2 Readings from Last 1 Encounters: 03/24/23 100% Date of Surgery: 03/24/2023 Surgeon: * No surgeons listed * Procedure: LABOR CONSULT OR Location: [facility] OUT [facility] OR - OR LOCATION Anesthesia Preop Screen (no physical exam) Anesthesia Preop: Chart Review PONV Risk Factors: female Anesthesia History Anesthesia History Negative per Chart Review Previous Anesthetics/Airways Cardiovascular Cardiovascular ROS Negative per Chart Review Pulmonary (+) Asthma Neuro/Musculoskeletal (+) Obesity GI/Hepatic (+) GERD Hematology Comments: 03/22/23 15:27 WBC x10^3: 10.90 RBC x10^6: 4.63 HGB: 11.9 HCT: 35.9 MCV: 77.5 (L) MCH: 25.7 (L) MCHC: 33.1 RDW-SD: 39.8 RDW-CV: 14.2 PLT x10^3: 395 (H) (L): Data is abnormally low (H): Data is abnormally high Renal Renal ROS Negative per Chart Review Skin (+) Current IV access and 18g Endo/Other Endocrine/other ROS Negative per Chart Review 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 Hold on DOS. Phentermine: Alert [facility] anesthesiologist SGLT2 Inhibitors: "gliflozins" to be held for 3 days prior to elective surgeries MAC Cases: Continue taking ELIA inhibitors and ARBs ASA Classification ASA: 3 ASA Comments: ROUTINE VISIT 03/22/2023 2:11 PM ? SUBJECTIVE Vladislav Rodas is a 32 year old at 39w2d who presents for routine visit. She has irregular contractions; denies loss of fluid, vaginal bleeding, and signs or symptoms of pre-eclampsia. Good movement. ? OBJECTIVE Vitals BP 115/73 (BP Location: Left arm, Patient Position: Sitting, BP CUFF SIZE: Adult Medium) | Pulse 84 | Temp 36.5 ?C (97.7 ?F) | Ht 4' 11" (1.499 m) | Wt 182 lb 6.4 oz (82.7 kg) | LMP 06/20/2022 | BMI 36.84 kg/m? ? FH: 38 FHT: 148 ? Physical Exam: Gen: A&Ox3, NAD CV: RRR Pulm: CTAB Abd: Soft, gravid, NTTP, no rebound or guarding Ext: No calf tenderness : SVE loose /ballotable ? Urine Dip: glucose negative, protein negative ? ASSESSMENT: Vladislav Rodas is a 32 year old at 39w2d who presents for routine visit. ? PLAN ? -Irregular contractions: SVE /ballotable. Cephalic confirmed on ultrasound today. -Desires induction at 39 weeks. Tentatively plan for 03/24/2023 unless clinically indicated otherwise Current Medications: No outpatient medications have been marked as taking for the 03/24/23 encounter (Hospital Encounter). Previous Surgeries: Past Surgical History: Procedure Laterality Date SURGICAL EXT TOOTH COMP PATY IMPACTION-D7240 06/08/2017 SURGICAL EXTRACTION - ERUPTED TEETH 06/08/2017 TOOTH EXTRACTION N/A 06/08/2017 Surgeon: Suresh Bosch; Location: 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 Problem: Intrapartum process (including labor pain) Goal: Absence of or reduction of complications of labor Outcome: Progressing as expected Goal: Able to cope with pain Outcome: Progressing as expected Goal: Adequate to move to next level of care Outcome: Progressing as expected Goal: Reduction in pain sensation Outcome: Progressing as expected Problem: Falls, Risk of Goal: Absence of falls Outcome: Progressing as expected Problem: Pain Goal: Control of pain at or below patient's documented comfort goal Outcome: Progressing as expected Goal: Reduction in pain sensation Outcome: Progressing as expected Problem: Discharge Planning - Goal: Adequate for discharge Outcome: Progressing as expected Goal: Mood stable Outcome: Progressing as expected T [facility] [employer] 2023-03-22 15:00:00 Formatting of this n ote is different from the original. Images from the original note were not included. Spoke with BB, they will do a TS day of. Venipuncture collection performed by clean technique on the right anticubitus. Total of 1 attempts were made. Slight pressure and a bandage/dressing were applied to the site(s). The patient experienced no complications. The following specimens were processed according to instructions and sent to [facility] laboratories per lab order on 03/22/2023: LT BLUE SST 2 RED 1 LAV 1 PPT DK GREEN (LiHep) DK GREEN (SodH) FAN DK BLUE (K2) DK BLUE (S) ACD Blood Culture NIPT/NTD T [facility] [employer] 2023-03-22 14:15:00 Formatting of this n ote might be different from the original. Age: [age] year old GA: 39w2d -Irregular contractions: SVE /ballotable. Cephalic confirmed on ultrasound today. -Desires induction at 39 weeks. Tentatively plan for 03/24/2023 unless clinically indicated otherwise - Daily kick counts and labor precautions given - follow-up in 5 to 6 weeks for visit [facility]
[2024-05-22 14:03] LABS: Absolute Eosinophils 0.2 K/uL (0-0.5); Absolute Lymphocytes (CBC) 2.7 K/uL (0.7-4.9); Absolute Monocytes 0.5 K/uL (0.1-1.3); Absolute Neutrophil 4.2 K/uL (1.8-8.0); Basophils % 0.6 % (0-1.3); Eosinophils % 2.8 % (0-4.4); Hematocrit 43.8 % (36.0-45.0); Hemoglobin 14.1 g/dL (12.0-15.0); Lymphocytes % 35.5 % (15.3-44.8); MCH 26.7 pg (27.0-35.0); MCHC 32.2 g/dL (32.0-36.0); MPV 7.7 fL (7.6-11.3); Neutrophils % 55.1 % (41.7-73.7); Platelets 366 thou/uL (152-406); RBC Red Blood Cell Count 5.28 M/uL (3.86-4.86); Red Cell Distribution Width 14.1 % (12.1-15.2)
[2024-05-22 14:16] LABS: Albumin 2.9 g/dL (3.4-5.0); Albumin/Globulin Ratio 0.9 (1.1-1.8); Anion Gap 10.1 mEq/L (5.0-15.0); Bilirubin Total 0.4 mg/dL (0.2-1.0); Globulin 3.3 g/dL (2.3-3.5); Potassium 4.1 mEq/L (3.5-5.1); Protein, Total 6.2 g/dL (6.4-8.2)
[2024-05-22] MEDS ORDERED: NA CHLORIDE 0.9% 1,000 ML ONE (15:10)
[2024-05-22] MEDS ORDERED: MORPHINE 2 MG/ML SYR ONE (15:10)
[2024-05-22] MEDS ORDERED: ONDANSETRON 4 MG/2 ML VIAL ONE (15:10)
--- NOTE | 2024-05-22 15:22 | ER ---
Nurse's Notes [facility] Name: Carlyn Rodas Age: 33 yrs Sex: Female : 1990 Arrival Date: 05/22/2024 Time: 11:19 Bed DX3 Private MD: Diagnosis: Vomiting;Diarrhea, unspecified Presentation: 05/22 11:48 Chief complaint: Patient states: nausea, vomiting, and diarrhea started yesterday. No tm6 fever or chills. Eyes watering-- took allergy medicine, helped. But n/v/d persists. Throat feels dry and sore. Coronavirus screen: Client denies travel out of the [place] in the last 14 days. Ebola Screen: Patient negative for fever greater than or equal to 101.5 degrees Fahrenheit, and additional compatible Ebola Virus Disease symptoms Patient denies exposure to infectious person. Patient denies travel to an Ebola-affected area in the 21 days before illness onset. No symptoms or risks identified at this time. Initial Sepsis Screen: Does the patient meet any 2 criteria? No. Patient's initial sepsis screen is negative. Does the patient have a suspected source of infection? No. Patient's initial sepsis screen is negative. Risk Assessment: Do you want to hurt yourself or someone else? Patient reports no desire to harm self or others. Onset of symptoms was May 21, 2024. 11:48 Method Of Arrival: Ambulatory tm6 11:48 Acuity: FERNANDO 3 tm6 Triage Assessment: 11:50 General: Appears in no apparent distress. Behavior is calm, cooperative. Pain: Denies tm6 pain. EENT: No signs and/or symptoms were reported regarding the EENT system. Neuro: Level of Consciousness is awake, alert, obeys commands, Oriented to person, place, time, situation. Cardiovascular: Patient's skin is warm and dry. Respiratory: Airway is patent Respiratory effort is even, unlabored, Respiratory pattern is regular, symmetrical. GI: Reports diarrhea, nausea, vomiting, since yesterday. : No signs and/or symptoms were reported regarding the genitourinary system. Derm: No signs and/or symptoms reported regarding the dermatologic system. Musculoskeletal: No signs and/or symptoms reported regarding the musculoskeletal system. 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 - Infectious Disease History:: Denies. - Social history:: Smoking status: Patient denies any tobacco usage or history of. Patient/guardian denies using alcohol. Screenin:54 [facility] ED Fall Risk Assessment (Adult) History of falling in the last 3 months, iw including since admission No falls in past 3 months (0 pts) Confusion or Disorientation No (0 pts) Intoxicated or Sedated No (0 pts) Impaired Gait No (0 pts) Mobility Assist Device Used No (0 pt) Altered Elimination No (0 pt) Score/Fall Risk Level 0 - 2 = Low Risk Oriented to surroundings. Abuse screen: Denies threats or abuse. Denies injuries from another. Nutritional screening: No deficits noted. Tuberculosis screening: No symptoms or risk factors identified. Assessment: 15:10 General: Appears in no apparent distress. Behavior is calm, cooperative. Pain: iw Complains of pain in abdomen. Neuro: Level of Consciousness is awake, alert, obeys commands, Oriented to person, place, time, situation. Respiratory: Respiratory effort is even, unlabored, Respiratory pattern is regular. GI: Reports diarrhea, nausea, vomiting. GI: Abdomen is non-distended. Derm: Skin is intact, is healthy with good turgor. Musculoskeletal: Range of motion: intact in all extremities. Vital Signs: 11:48 BP 131 / 80; Pulse 87; Resp 20; Temp 98.6(O); Pulse Ox 100% ; MAP 96 mmHg; Weight 89.36 tm6 kg; Height 4 ft. 11 in. ; Pain 0/10; 11:48 Body Mass Index 39.79 (89.36 kg, 149.86 cm) tm6 11:48 Pain Scale: Adult tm6 ED Course: 11:23 Patient arrived in ED. im 11:35 Schuyler Barajas MD is Attending Physician. [facility] 11:50 Triage completed. tm6 11:50 Arm band placed on right wrist. tm6 13:42 Initial lab(s) drawn, by nc, sent to lab. Inserted saline lock: 22 gauge in left tm3 antecubital area, using aseptic technique. 15:21 Tanya Choudhury, RN is Primary Nurse. iw 15:21 Regino Chester DO is Referral Physician. [facility] 16:54 No provider procedures requiring assistance completed. IV discontinued, intact, iw bleeding controlled, No redness/swelling at site. Pressure dressing applied. Administered Medications: 15:20 Drug: NS 0.9% IV 1000 ml IV at 1 bolus Per protocol; 1000 mL bolus Route: IV; Rate: 1 iw bolus; Site: left antecubital; 16:54 Follow up: IV Status: Completed infusion iw 15:20 Not Given (Patient Refused): [id number] mg IVP once; dilute with 10 mL 0.9% NaCl; iw give over 2 minutes 15:20 Drug: Ondansetron IVP 4 mg IVP once; over 2 minutes Route: IVP; Site: left antecubital; iw 15:21 Drug: morphine IVP or IV 2 mg IVP once over 4 mins Route: IVP; Infused Over: 4 mins; iw Site: left antecubital; Outcome: 15:22 Discharge ordered by . [facility] 16:54 Discharged to home ambulatory, iw 16:54 Condition: good 16:54 Discharge instructions given to patient, Instructed on discharge instructions, follow up and referral plans. medication usage, Demonstrated understanding of instructions, follow-up care, medications, Prescriptions given X 1, 16:55 Patient left the ED. tm6 Signatures: Kavin Westfall tm3 Schuyler Barajas MD MD cha Williams, Irene, RN RN Marybeth Clark Tawney, RN RN tm6 Corrections: (The following items were deleted from the chart) 11:52 11:48 Chief complaint: Patient states: nausea, vomiting, and diarrhea started tm6 yesterday. No fever or chills. Eyes watering-- took allergy medicine, helped. But n/v/d persists tm6
--- NOTE | 2024-05-22 15:22 | EDPHYS ---
Physician Documentation [facility] Name: Carlyn Rodas Age: 33 yrs Sex: Female : 1990 Arrival Date: 05/22/2024 Time: 11:19 Bed DX3 Private MD: ED Physician Schuyler Barajas HPI: 05/22 15:18 This 33 yrs old Female presents to ER via Ambulatory with complaints of kathy Vomiting/Diarrhea. 15:18 The patient presents to the emergency department with nausea, vomiting, diarrhea, that kathy is intermittent. Onset: The symptoms/episode began/occurred 1 day(s) ago. Possible causes: unknown. The symptoms are aggravated by nothing. The symptoms are alleviated by nothing. Associated signs and symptoms: The patient has no apparent associated signs or symptoms. Severity of symptoms: in the emergency department the symptoms. The patient has experienced similar episodes in the past, a few times. 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 - Infectious Disease History:: Denies. - Social history:: Smoking status: Patient denies any tobacco usage or history of. Patient/guardian denies using alcohol. ROS: 15:18 Constitutional: Negative for fever, chills, and weight loss, Eyes: Negative for injury, kathy pain, redness, and discharge, ENT: Negative for injury, pain, and discharge, Neck: Negative for injury, pain, and swelling, Cardiovascular: Negative for chest pain, palpitations, and edema, Respiratory: Negative for shortness of breath, cough, wheezing, and pleuritic chest pain, Back: Negative for injury and pain, : Negative for injury, bleeding, discharge, and swelling, MS/Extremity: Negative for injury and deformity, Skin: Negative for injury, rash, and discoloration, Neuro: Negative for headache, weakness, numbness, tingling, and seizure, Psych: Negative for depression, anxiety, suicide ideation, homicidal ideation, and hallucinations, Allergy/Immunology: Negative for hives, rash, and allergies, Endocrine: Negative for neck swelling, polydipsia, polyuria, polyphagia, and marked weight changes, Hematologic/Lymphatic: Negative for swollen nodes, abnormal bleeding, and unusual bruising, 15:18 Abdomen/GI: Positive for abdominal pain, nausea, vomiting, diarrhea, Exam: 15:18 Constitutional: This is a well developed, well nourished patient who is awake, alert, kathy and in no acute distress. Head/Face: Normocephalic, atraumatic. Eyes: Pupils equal round and reactive to light, extra-ocular motions intact. Lids and lashes normal. Conjunctiva and sclera are non-icteric and not injected. Cornea within normal limits. Periorbital areas with no swelling, redness, or edema. ENT: Nares patent. No nasal discharge, no septal abnormalities noted. Tympanic membranes are normal and external auditory canals are clear. Oropharynx with no redness, swelling, or masses, exudates, or evidence of obstruction, uvula midline. Mucous membranes moist. Neck: Trachea midline, no thyromegaly or masses palpated, and no cervical lymphadenopathy. Supple, full range of motion without nuchal rigidity, or vertebral point tenderness. No Meningismus. Chest/axilla: Normal chest wall appearance and motion. Nontender with no deformity. No lesions are appreciated. Cardiovascular: Regular rate and rhythm with a normal S1 and S2. No gallops, murmurs, or rubs. Normal PMI, no JVD. No pulse deficits. Respiratory: Lungs have equal breath sounds bilaterally, clear to auscultation and percussion. No rales, rhonchi or wheezes noted. No increased work of breathing, no retractions or nasal flaring. Abdomen/GI: Soft, non-tender, with normal bowel sounds. No distension or tympany. No guarding or rebound. No evidence of tenderness throughout. Back: No spinal tenderness. No costovertebral tenderness. Full range of motion. Skin: Warm, dry with normal turgor. Normal color with no rashes, no lesions, and no evidence of cellulitis. MS/ Extremity: Pulses equal, no cyanosis. Neurovascular intact. Full, normal range of motion. Neuro: Awake and alert, GCS 15, oriented to person, place, time, and situation. Cranial nerves II-XII grossly intact. Motor strength 5/5 in all extremities. Sensory grossly intact. Cerebellar exam normal. Normal gait. Psych: Awake, alert, with orientation to person, place and time. Behavior, mood, and affect are within normal limits. Vital Signs: 11:48 BP 131 / 80; Pulse 87; Resp 20; Temp 98.6(O); Pulse Ox 100% ; MAP 96 mmHg; Weight 89.36 tm6 kg; Height 4 ft. 11 in. ; Pain 0/10; 11:48 Body Mass Index 39.79 (89.36 kg, 149.86 cm) tm6 11:48 Pain Scale: Adult tm6 MDM: 11:35 Patient medically screened. [facility] 15:19 Differential diagnosis: Nonspecific abd pain, gastritis, cholecystitis, pancreatitis, kathy viral gastroenteritis, gastroenteritis, bowel obstruction, cholecystitis, Cholelithiasis. Data reviewed: vital signs, nurses notes, lab test result(s), EKG. Consideration of Admission/Observation Escalation of care including admission/observation considered. I considered the following discharge prescriptions or medication management in the emergency department Medications were administered in the Emergency Department. See MAR. Test considered but Not performed: CT: no ct abd/pelvis. Care significantly affected by the following chronic conditions: Obesity, asthma/adhd. Counseling: I had a detailed discussion with the patient and/or guardian regarding the historical points, exam findings, and any diagnostic results supporting the discharge/admit diagnosis, lab results, radiology results, the need for outpatient follow up, for definitive care, a family practitioner. 05/22 11:35 Order name: CBC with Diff; Complete Time: 15:16 [facility] 05/22 11:35 Order name: CMP; Complete Time: 15:16 [facility] 05/22 11:35 Order name: Lipase; Complete Time: 15:16 [facility] 05/22 11:35 Order name: IV Saline Lock; Complete Time: 15:20 [facility] 05/22 11:35 Order name: Labs collected and sent; Complete Time: 15:20 [facility] Administered Medications: 15:20 Drug: NS 0.9% IV 1000 ml IV at 1 bolus Per protocol; 1000 mL bolus Route: IV; Rate: 1 iw bolus; Site: left antecubital; 16:54 Follow up: IV Status: Completed infusion iw 15:20 Not Given (Patient Refused): [id number] mg IVP once; dilute with 10 mL 0.9% NaCl; iw give over 2 minutes 15:20 Drug: Ondansetron IVP 4 mg IVP once; over 2 minutes Route: IVP; Site: left antecubital; iw 15:21 Drug: morphine IVP or IV 2 mg IVP once over 4 mins Route: IVP; Infused Over: 4 mins; iw Site: left antecubital; Disposition Summary: 05/22/24 15:22 Discharge Ordered Notes: Location: Home kathy Problem: new kathy Symptoms: have improved kathy Condition: Stable kathy Diagnosis - Vomiting kathy - Diarrhea, unspecified kathy Followup: kathy - With: Private Physician - When: 2 - 3 days - Reason: Recheck today's complaints, Continuance of care, Re-evaluation by your physician Followup: kathy - With: Regino Chester, DO - When: 2 - 3 days - Reason: Recheck today's complaints, Re-evaluation by your physician Discharge Instructions: - Discharge Summary Sheet kathy - Food Choices to Help Relieve Diarrhea, Adult kathy - Diarrhea, Adult kathy - Diarrhea, Adult, [id number] kathy - Vomiting, Adult kathy Forms: - Medication Reconciliation Form kathy - Antibiotic Education kathy - Prescription Opioid Use kathy - Patient Portal Instructions kathy - Leadership Thank You Letter kathy - Work release form iw Prescriptions: - ondansetron 4 mg Oral Tablet,disintegrating - take 1 tablet ORAL route every 8-10 hours for 5 days as needed for nausea and kathy vomiting; 20 tablet; Refills: 0, Product Selection Permitted Signatures: Dispatcher [employer] Schuyler Meraz MD MD cha Williams, Irene RN RN Indu Chamorro RN RN tm6
[2024-05-22 18:04] VITALS: BP 131/80; TEMP 98.6; O2SAT 100
== END 2024-05-22 16:55 | disposition home or self-care (01) ==
LOC: ER 11:19
DX: R11.10 Vomiting, unspecified (principal); R19.7 Diarrhea, unspecified
CPT/HCPCS: 96361; 85025; 36415; 83690; 80053; 96375; 96374; 99284; J2270; J2405; J7030

== ENCOUNTER 2024-08-02 19:34 | Emergency (ER) | payer OTHER ==
--- OUTSIDE RECORDS SUMMARY | 2024-08-02 19:39 | XMS REPORT | Continuity of Care Document ---
Author Name Unknown Address [address] [facility] [place] [address] [facility] Address [address] [facility] [address] [place] [address] Care Team Providers Care Order Tracer Name Role Phone Renetta SQUIRES, [facility] Primary Care Physician [phone] CAROLINE RUANO Attending Clinician Unavailable , [facility] Attending Clinician Unavailable Caroline Ruano MD Attending Clinician [phone] MIGUEL HICKMAN Attending Clinician Unavailab Miguel Porras NP Attending Clinician [phone] MENDOZA WASHBURN Attending Clinician Unavailable GIULIA CALDERON Attending Clinician Unavailable HOSSEIN GARCIA Attending Clinician Unavailable Hossein Garcia MD Attending Clinician [phone] Giulia Hernandes Attending Clinician +0 Mendoza Washburn MD Attending Clinician [phone] Doctor Unassigned, Nekoma Attending Clinician U Stalin Aly MD Attending Clinicia n Beckie Mace MD Attending Clinician [phone] Antelmo Irwin CRNA Attending Clinician Pob, [facility] Main Attending Clinician UnavailSADIA Aviles Attending Clinician SADIA Howell Attending Clinician Rochelle johns 2, [facility] Attending Clinician Unavailable Aminata ROSALES, Indira Attending Clinician + [phone] Ultrasound, Ang-Mfm Attending Clinician Unavailriccardo Samayoa MD, [place] Attending Clinician + RHYS SHIPMAN Attending Clinician Phuongv ailable INDIRA KELLY Attending Clinician UnavailVIVIANE Mercado Attending Clinician Unavailable Chapito SQUIRES, Viviane Martinez Attending Clinician [phone] Malcolm TERESA, K Joselyn Attending Clinician [phone] SADIA NEWMAN Admitting Clinician MIGUEL Darnell Admitting Clinician Unavailab MENDOZA Ortega Admitting Clinician Unavailable Maddison SQUIRES, Mendoza Mayfield Admitting Clinician [phone] VIVIANE URIARTE Admitting Clinician Unavailable Viviane Uriarte MD Admitting Clinician [phone] Payers Payer Name Policy Type Policy Number Effective Date Expirati on Date Source MANAGED MEDICAID GENERIC NON-CONTRACT [id number] 2023 00:00:00 [facility] [id number] 2022 00:00:00 2023 00:00:00 [facility] [id number] 2024 00:00:00 [facility] [id number] 2024 00:00:00 Problems Condition Name Condition Details Condition Category Status Onset Date Resolution Date Last Treatment Date Treating Clinician Comments Source Mild intermitte nt asthma without complicati on Mild intermitte nt asthma without complicati on Disease Active 2023-08 00:00: 00 [facility] Anxiety, generalize d Anxiety, generalize d Disease Active 2023-08 00:00: 00 [facility] Gastroesop hageal reflux disease without esophagiti s Gastroesop hageal reflux disease without esophagiti s Disease Active 2023-08 00:00: 00 [facility] Cough headache Cough headache Disease Active 2024-1 0-25 00:00: 00 [facility] Chronic allergic rhinitis Chronic allergic rhinitis Disease Active 2023-08 0-25 00:00: 00 [facility] Grief Grief Disease Active 2023-08 0-25 00:00: 00 [facility] Other constipati on Other constipati on Disease Active 2023-08 0-25 00:00: 00 [facility] Viral syndrome Viral syndrome Disease Active 2023-08 0-17 00:00: 00 [facility] Acute cough Acute cough Disease Active 2023-08 0-17 00:00: 00 [facility] Vacuum-ass isted vaginal delivery Vacuum-ass isted vaginal delivery Disease Active 8-03 00:00: 00 [facility] Obesity (BMI 30-39.9) Obesity (BMI 30-39.9) Disease Active 7-25 00:00: 00 [facility] Other and unspecifie d diseases of the oral soft tissues Other and unspecifie d diseases of the oral soft tissues Disease Active 9- 00:00: 00 Overview: Formattin g of this note might be different from the original. Added automatic ally from request for surgery [id number] [facility] 39 weeks gestation of 39 weeks gestation of Disease Resolve d 8-03 00:00: 00 2023-04-26 00:00:00 2023-04-26 13:14:14 [facility] Liveborn , of [place] , born in hospital by vaginal delivery Liveborn , of [place] , born in hospital by vaginal delivery Disease Resolve d 0 8-03 00:00: 00 2023-04-26 00:00:00 2023-04-26 13:14:12 [facility] Positive GBS test Positive GBS test Disease Resolve d 8- 00:00: 00 2023-04-26 00:00:00 2023-04-26 13:14:15 [facility] Chlamydia trachomati s infection of lower genitourin jose luis sites Chlamydia trachomati s infection of lower genitourin jose luis sites Disease Resolve d 2023-0 7-13 00:00: 00 2023-04-26 00:00:00 2023-04-26 13:14:18 [facility] High-risk in third trimester High-risk in third trimester Disease Resolve d 2022-0 6-26 00:00: 00 2023-04-26 00:00:00 2023-04-26 13:14:18 [facility] Heartburn during , antepartum Heartburn during , antepartum Disease Resolve d 0 6-01 00:00: 00 2023-04-26 00:00:00 2023-04-26 13:14:24 [facility] Acute lower respirator y infection Acute lower respirator y infection Disease Resolve d 0 6- 00:00: 00 2023-04-26 00:00:00 2023-04-26 13:14:23 [facility] Need for Tdap vaccinatio n Need for Tdap vaccinatio n Disease Resolve d 0 6-01 00:00: 00 2023-04-26 00:00:00 2023-04-26 13:14:22 [facility] Insufficie nt care in third trimester Insufficie nt care in third trimester Disease Resolve d 0 2-06 00:00: 00 2023-04-26 00:00:00 2023-04-26 13:14:27 [facility] Obesity in , antepartum Obesity in , antepartum Disease Resolve d 0 2-06 00:00: 00 2023-04-26 00:00:00 2023-04-26 13:14:26 [facility] Transporta tion insecurity Transporta tion insecurity Disease Resolve d 0 2-06 00:00: 00 2023-04-26 00:00:00 2023-04-26 13:14:25 [facility] uterine contractio ns in third trimester, antepartum uterine contractio ns in third trimester, antepartum Disease Resolve d 2022-0 6-14 00:00: 00 2023-03-08 00:00:00 2023-03-08 14:27:48 [facility] Allergies, Adverse Reactions, Alerts Allergy Name Allergy Type Status Severity Reaction(s) Onset Date Inactive Date Treating Clinician Comments Source Daija - Yesenia Felipe ty to adverse reaction to drug Active 02-25 00:00: 00 NO KNOWN ALLERGIE S Drug Class Active [facility] Social History Social Habit Start Date Stop Date Quantity Comments Source ASSERTION 2022-07-04 00:00:00 [facility] Gender identity [facility] Sexual orientation [facility] Alcoholic beverage intake 2024-06-15 00:00:00 2024-06-15 00:00:00 Ex-drinker (finding) [facility] Alcohol intake 2023-09-29 00:00:00 2023-09-29 00:00:00 Ex-drinker (finding) [facility] History of Social function 2023-08-30 00:00:00 2023-08-30 00:00:00 [facility] Exposure to SARS-CoV-2 (event) 2023-01-09 00:00:00 2023-01-19 15:07:00 Not sure [facility] Tobacco use and exposure 2022-09-27 00:00:00 2022-09-27 00:00:00 Smokeless tobacco non-user [facility] Cigarettes smoked current (pack per day) - Reported 2022-09-27 00:00:00 2022-09-27 00:00:00 [facility] History of tobacco use 2014-08-22 00:00:00 Cigarette Smoker [facility] Sex assigned at 1990 00:00:00 1990 00:00:00 [facility] Smoking Status Start Date Stop Date Source Ex-smoker 2022-09-27 00:00:00 2022-09-27 00:00:00 [facility] Medications Ordered Medication Name Filled Medication Name Start Date Stop Date Current Medication? Ordering Clinician Indication Dosage Frequency Signature (SIG) Comments Components Source ergocalcife rol, vitamin d2, 1,250 mcg (50,000 unit) capsule 2023-08 0 00:00: 00 Yes [id number] 85189M Take 1 capsule by mouth weekly. [facility] calcium carbonate 500 mg calcium (1,250 mg) tablet 2023-08 00:00: 00 Yes [id number] 500mg Take 1 tablet by mouth in the morning. [facility] ipratropium 0.02 % nebulizer solution 2023-08 00:00: 00 Yes [id number] .5mg Inhale 2.5 mL every 6 (six) hours as needed for Wheezing or Shortness of Breath. [facility] albuterol 2.5 mg /3 mL (0.083 %) nebulizer solution 2023-08 00:00: 00 Yes [id number] 2.5mg Inhale 3 mL every 4 (four) hours as needed for Wheezing or Shortness of Breath. [facility] ipratropium 17 mcg/actuati on inhaler 2023-08 00:00: 00 Yes [id number] 1{puff} Inhale 1 Puff 4 (four) times daily. [facility] albuterol 90 mcg/actuati on inhaler 2023-08 00:00: 00 Yes [id number] 2{puff} Inhale 2 Puffs every 6 (six) hours as needed for Wheezing or Shortness of Breath. [facility] Miscellaneo us Medical Supply Kit 2023-08 00:00: 00 Yes [id number] J40: Brochitis - Dispense # 1 Nandini Respironic s (okay for alternativ e brand) for nebulizer treatment [facility] pantoprazol e 20 mg EC tablet 2023-08 00:00: 00 Yes [id number] 20mg Take 1 tablet by mouth daily before breakfast. [facility] docusate (COLACE) 100 mg capsule 2023-08 00:00: 00 Yes [id number] 100mg Take 1 capsule by mouth once daily as needed for Constipati on. [facility] bran-gum-fi b-amairani-psyl- kelp-pec (FIBER 6) 1,000 mg Tab 2023-08 00:00: 00 Yes [id number] 1{tbl} Take 1 tablet by mouth once daily as needed for Constipati on. [facility] fluticasone propionate 50 mcg/actuati on nasal spray 2023-08 00:00: 00 Yes [id number] 1{spray } Use 1 [place] in each nostril in the morning. [facility] azelastine 137 mcg (0.1 %) nasal spray 2023-08 00:00: 00 Yes [id number] 1{spray } Use 1 [place] in each nostril in the morning and 1 [place] in the evening. Use in each nostril as directed [facility] bromphenira mine-pseudo ephedrine-D M (BROMFED DM) 2-30-10 mg/5 mL syrup 2023-08 00:00: 00 Yes [id number] 10mL Take 10 mL by mouth 4 (four) times daily as needed for Cough. [facility] ibuprofen (IBU) tablet 600 mg 2023-08 04:00: 00 06-07 04:34 :00 No 600mg 600 mg, Oral, ONCE, 1 dose, On Tue06/06/24 at 2300, SULEMAN [facility] ibuprofen 600 mg tablet 2023-08 00:00: 00 06-15 00:00 :00 No [id number] 600mg Take 1 tablet by mouth every 6 (six) hours as needed for Pain (scale 4-6). [facility] methylPREDN ISolone (MEDROL, ZULAY,) 4 mg tablets 09-16 00:00: 00 06-15 00:00 :00 No [id number] Take by mouth SEE-INSTRU CTIONS. follow package directions [facility] amoxicillin 875 mg tablet 08-30 00:00: 00 09-10 05:59 :00 No [id number] 875mg Take 1 tablet by mouth in the morning and 1 tablet in the evening. Do all this for 10 days. [facility] etonogestre L (NEXPLANON) implant 68 mg 05-03 14:45: 00 05-03 14:04 :00 No [id number] 68mg [facility] rho(D) immune globulin (RHOGAM) syringe 300 mcg 03-25 06:03: 57 Yes 300ug 300 mcg, Intramuscu lar, ONCE, For 1 dose, Conditiona l, Routine [facility] witch Troy (TUCKS) 50 % topical pad 03-25 06:03: 38 Yes Topical, Q4HPRN, Starting on Tue03/25/23 at 0103, Until Discontinu ed, Routine, rectal/hem orrhoidal pain [facility] HYDROcodone -acetaminop hen (NORCO 5) 5-325 mg tablet 1 tablet 03-25 06:03: 38 Yes 1{tbl} 1 tablet, Oral, Q6HPRN, Starting on Tue03/25/23 at 010, Until Discontinu ed, Routine, Pain (scale 7-10) [facility] ibuprofen (IBU) tablet 600 mg 03-25 06:03: 38 Yes 600mg 600 mg, Oral, Q6HPRN, Starting on Tue03/25/23 at 0103, Until Discontinu ed, Routine, Pain (scale 4-6) [facility] acetaminoph en (TYLENOL) tablet 650 mg 03-25 06:03: 38 Yes 650mg 650 mg, Oral, Q6HPRN, Starting on Tue03/25/23 at 0103, Until Discontinu ed, Routine, Pain (scale 1-3) [facility] diphenhydrA MINE (BENADRYL) tablet 25 mg 03-25 06:03: 38 Yes 25mg 25 mg, Oral, Q6HPRN, Starting on Tue03/25/23 at 0103, Until Discontinu ed, Routine, Sleep, Itching [facility] ondansetron (ZOFRAN (PF)) injection 4 mg 03-25 06:03: 38 Yes 4mg 4 mg, Slow IV Push, Q8HPRN, Starting on Tue03/25/23 at 0103, Until Discontinu ed, Routine, Nausea and Vomiting (N/V) [facility] simethicone (GAS RELIEF (SIMETHICON E)) chewable tablet 160 mg 03-25 06:03: 38 Yes 160mg 160 mg, Oral, PC+HSPRN, Starting on Tue03/25/23 at 0103, Until Discontinu ed, Routine, Gas [facility] docusate (COLACE) capsule 200 mg 03-25 06:03: 38 Yes 200mg 200 mg, Oral, QDAILYPRN, Starting on Tue03/25/23 at 0103, Until Discontinu ed, Routine, Constipati on [facility] magnesium hydroxide (MILK OF MAGNESIA) 400 mg/5 mL suspension 30 mL 03-25 06:03: 38 Yes 30mL 30 mL, Oral, QDAILYPRN, Starting on Tue03/25/23 at 0103, Until Discontinu ed, Routine, Constipati on [facility] benzocaine- menthol (DERMOPLAST ) 20-0.5 % topical spray 03-25 06:03: 38 Yes Topical, PRN, Starting on Tue03/25/23 at 0103, Until Discontinu ed, Routine, Perineum discomfort [facility] oxytocin (PITOCIN) 30 units in NS 500 mL IV infusion 03-25 01:46: 12 03-25 06:03 :55 No 300mL/h 300 mL/hr, IV Infusion, SEE-INSTRU CTIONS, Starting on Tue03/24/[address] at 300 mL/hr for 1 hr then 150 mL/hr for 1 hr. For post delivery uterotonic .
[facility] ferrous sulfate 325 mg (65 mg iron) tablet 03-25 00:00: 00 Yes [id number] 325mg Take 1 tablet by mouth in the morning and 1 tablet in the evening. [facility] vitamin w/FA tablet 03-25 00:00: 00 09-16 00:00 :00 No [id number] 1{tbl} Take 1 tablet by mouth in the morning. [facility] docusate 100 mg capsule 03-25 00:00: 00 05-03 00:00 :00 No [id number] 200mg Take 2 capsules by mouth once daily as needed for Constipati on. [facility] ibuprofen 600 mg tablet 03-25 00:00: 00 05-03 00:00 :00 No [id number] 600mg Take 1 tablet by mouth every 6 (six) hours as needed (Pain). Take with food or milk. [facility]y [facility] fentaNYL-ro pivacaine 2 mcg/mL-0.1 % (PF) in NS 200 mL epidural infusion RTU 03-24 14:29: 00 03-25 02:36 :21 No Epidural, CONTINUOUS PRN, Starting on Tue03/24/23 at 0929, Until Discontinu ed, Routine, Intra-op [facility] lidocaine-e pinephrine (XYLOCAINE W/EPINEPHRI NE) 1.5 %-1:200,000 injection 03-24 14:27: 00 03-25 02:36 :21 No Intraderma l, ONCE INTRA PROCEDURE, Starting on Chiara 03/24/23 at 0927, Until Discontinu ed, Routine, Intra-op [facility] oxytocin (PITOCIN) 30 units in NS 500 mL IV infusion 03-24 12:33: 37 03-25 06:03 :55 No 2mU/min at 2-40 mL/hr, IV Infusion, TITRATE, Starting on Tue03/24/23 at 0733, Until Tue03/25/23 at 0103, SULEMAN [facility] misoprostol (CYTOTEC) quarter-tab let 25 mcg 03-24 06:45: 00 03-24 08:21 :00 No 25ug 25 mcg, Oral, ONCE, 1 dose, On Tue03/24/23 at 0145, Routine [facility] 500 mL 03-24 06:44: 26 03-25 06:03 :55 No 500mL at 999 mL/hr, 500 mL, IV Infusion, PRN - SEE INSTRUCTIO NS, Starting on Tue03/24/23 at 0144, Until Tue03/25/23 at 0103, Routine [facility] ondansetron (ZOFRAN (PF)) injection 4 mg 03-24 06:44: 26 03-25 06:03 :55 No 4mg 4 mg, Slow IV Push, Q8HPRN, Nausea and Vomiting (N/V), Starting on Chiara 03/24/23 at 0144
Do ses of ondansetro n 16 mg and above need to be administer ed via IV piggyback. For Dose >=24mg ECG monitoring is advisable.
[facility] FENTanyl PF (SUBLIMAZE (PF)) injection 100 mcg 03-24 06:44: 26 03-25 06:03 :55 No 100ug 100 mcg, Slow IV Push, Q1HPRN, Starting on Chiara 03/24/23 at 0144, Until Tue03/25/23 at 0103, Routine, contractio n pain without an epidural and SVE < 8 cm and Cat I strip [facility] D5W-LR IV infusion 1,000 mL 03-24 06:44: 26 03-25 06:03 :55 No 1000mL at 1-125 mL/hr, IV Infusion, TITRATE, Starting on Chiara 03/24/23 at 0144, Until Tue03/25/23 at 0103, Routine [facility] azithromyci n 500 mg tablet 03-03 00:00: 00 03-04 04:59 :00 No [id number] 1000mg Take 2 tablets by mouth once now for 1 dose. [facility] albuterol 90 mcg/actuati on inhaler 02-14 00:00: 00 06-15 00:00 :00 No [id number] 2{puff} Inhale 2 Puffs every 6 (six) hours as needed for Wheezing, Shortness of Breath, Bronchospa sm or Chest tightness. [facility] terbutaline (BRETHINE) injection 0.25 mg 02-02 04:15: 00 02-02 04:11 :00 No .25mg 0.25 mg, Subcutaneo us, ONCE, 1 dose, On Tue02/01/23 at 2315, Routine [facility] NaCl 0.9% (NS) bolus infusion 1,000 mL 02-02 02:00: 00 02-02 01:36 :47 No 1000mL at 999 mL/hr, 1,000 mL, IV Infusion, ONCE, 1 dose, On Tue02/01/23 at 2100, STAT [facility] omeprazole 20 mg capsule 01-19 00:00: 00 03-25 00:00 :00 No [id number] 20mg Take 1 capsule by mouth in the morning. [facility] azithromyci n (ZITHROMAX Z-ZULAY) 250 mg tablet 01-19 00:00: 00 02-14 00:00 :00 No [id number] Take two tablets, orally, on day one; then take one tablet, orally, days two through five. [facility] guaiFENesin (MUCINEX) 600 mg tablet 01-19 00:00: 00 02-14 00:00 :00 No [id number] 600mg Take 1 tablet by mouth every 12 (twelve) hours. [facility] TAKE 1 TABLET BY MOUTH EVERY 12 HOURS FOR 30 DAYS 09-08 00:00: 00 No AMOX-CLAV 875-125 MG TABLET 09-08 00:00: 00 No DISSOLVE 1 TABLET IN MOUTH EVERY 4 TO 6 HOURS 03-31 00:00: 00 No 4 TAKE 1 CAPSULE BY MOUTH EVERY 8 HOURS FOR 10 DAYS 03-31 00:00: 00 No 300 USE DIRECTED TWICE DAILY TO AFFECTED AREA 03-31 00:00: 00 No TAKE 1 TABLET TWICE DAILY UNTIL FINISHED. 03-31 00:00: 00 No 500 TAKE 1 TABLET BY MOUTH EVERY 12 HOURS 03-31 00:00: 00 No DISSOLVE 1 TABLET IN MOUTH EVERY 4 TO 6 HOURS 03-31 00:00: 00 No 4 TAKE 1 CAPSULE BY MOUTH EVERY 8 HOURS FOR 10 DAYS 0 8-10 00:00: 00 No 300 USE DIRECTED TWICE DAILY TO AFFECTED AREA 2021-0 8-10 00:00: 00 No TAKE 1 TABLET TWICE DAILY UNTIL FINISHED. 0 8-10 00:00: 00 No 500 TAKE 1 TABLET BY MOUTH EVERY 12 HOURS 2021-0 8-10 00:00: 00 No &lt 2021-0 7-12 00:00: 00 No 20 &lt 2021-0 712 00:00: 00 No 20 TAKE 1 TABLET BY MOUTH EVERY 12 HOURS FOR 30 DAYS 0 7- 00:00: 00 No 20 DISSOLVE 1 TABLET IN MOUTH EVERY 4 TO 6 HOURS 2021-0 7 00:00: 00 No 4 TAKE 1 TABLET BY MOUTH EVERY 12 HOURS FOR 30 DAYS 0 7 00:00: 00 No 20 DISSOLVE 1 TABLET IN MOUTH EVERY 4 TO 6 HOURS 0 02-26 00:00: 00 No 4 TAKE 1 TABLET BY MOUTH EVERY 12 HOURS FOR 30 DAYS 0 02-26 00:00: 00 No 20 DISSOLVE 1 TABLET IN MOUTH EVERY 4 TO 6 HOURS 0 02-26 00:00: 00 No 4 USE DIRECTED TWICE DAILY TO AFFECTED AREA 0 7 00:00: 00 No USE DIRECTED TWICE DAILY TO AFFECTED AREA 0 02-25 00:00: 00 No USE DIRECTED TWICE DAILY TO AFFECTED AREA 0 02-25 00:00: 00 No ibuprofen 600 mg tablet 2021-0 2-11 00:00: 00 No 1mg ibuprofen 600 mg tablet 0 2-11 00:00: 00 No 1mg ibuprofen 600 mg tablet 0 2-11 00:00: 00 No 1mg diclofenac sodium [...] cream 0 03-07 00:00: 00 No 1% Macrobid 100 mg capsule 0 7 00:00: 00 No 1mg Macrobid 100 mg capsule 0 03-02 00:00: 00 No 1mg Macrobid 100 mg capsule 0 03-02 00:00: 00 No 1mg Zyrtec 10 mg tablet 0 6- 00:00: 00 No 1mg Zyrtec 10 mg tablet 0 6- 00:00: 00 No 1mg Zyrtec 10 mg tablet 0 6- 00:00: 00 No 1mg Xulane 150 mcg-35 mcg/24 hr transdermal patch 2020-0 2-19 00:00: 00 No 1mcg/24 hr Xulane 150 mcg-35 mcg/24 hr transdermal patch 2020-0 2-19 00:00: 00 No 1mcg/24 hr Xulane 150 mcg-35 mcg/24 hr transdermal patch 2020-0 2-19 00:00: 00 No 1mcg/24 hr Flagyl 500 mg tablet 0 1-20 00:00: 00 No 1mg Flagyl 500 mg tablet 0 1-20 00:00: 00 No 1mg Flagyl 500 mg tablet 0 1-20 00:00: 00 No 1mg Macrobid 100 mg capsule 2020-0 1-16 00:00: 00 No 1mg Macrobid 100 mg capsule 09-06 00:00: 00 No 1mg Macrobid 100 mg capsule 09-06 00:00: 00 No 1mg ibuprofen 600 mg tablet 2016-08 00:00: 00 10-03 00:00 :00 No 600mg Take 1 tablet by mouth every 6 (six) hours as needed for Pain (scale 4-6). [facility] Immunizations Ordered Immunization Name Filled Immunization Name Date Status Comments Source Pneumococcal 20 Conjugate, PCV20 (Prevnar 20) 2024-06-15 00:00:00 Completed [facility] TDAP 2023-01-19 00:00:00 Completed [facility] TDAP 2023-01-19 00:00:00 Completed [facility] TDAP 2023-01-19 00:00:00 Completed [facility] TDAP 2023-01-19 00:00:00 Completed [facility] TDAP 2023-01-19 00:00:00 Completed [facility] TDAP 2023-01-19 00:00:00 Completed [facility] TDAP 2023-01-19 00:00:00 Completed [facility] TDAP 2023-01-19 00:00:00 Completed [facility] TDAP 2023-01-19 00:00:00 Completed [facility] TDAP 2023-01-19 00:00:00 Completed [facility] TDAP 2023-01-19 00:00:00 Completed [facility] TDAP 2023-01-19 00:00:00 Completed [facility] TDAP 2023-01-19 00:00:00 Completed [facility] TDAP 2023-01-19 00:00:00 Completed [facility] TDAP 2023-01-19 00:00:00 Completed [facility] TDAP 2023-01-19 00:00:00 Completed [facility] TDAP 2023-01-19 00:00:00 Completed [facility] TDAP 2023-01-19 00:00:00 Completed [facility] TDAP 2023-01-19 00:00:00 Completed [facility] TDAP 2023-01-19 00:00:00 Completed [facility] TDAP 2023-01-19 00:00:00 Completed [facility] TDAP 2023-01-19 00:00:00 Completed [facility] TDAP 2023-01-19 00:00:00 Completed [facility] TDAP 2023-01-19 00:00:00 Completed [facility] TDAP 2023-01-19 00:00:00 Completed [facility] TDAP 2023-01-19 00:00:00 Completed [facility] TDAP 2023-01-19 00:00:00 Completed [facility] TDAP 2023-01-19 00:00:00 Completed [facility] TDAP 2023-01-19 00:00:00 Completed [facility] SARS-COV-2 COVID-19 VACCINE - (MODERNA) 2021-01-01 00:00:00 Completed Moderna COVID-19 Vaccine 2021-01-01 00:00:00 Completed Moderna COVID-19 Vaccine 2021-01-01 00:00:00 Completed Moderna COVID-19 Vaccine 2021-01-01 00:00:00 Completed SARS-COV-2 COVID-19 VACCINE - (MODERNA) 2020-12-03 00:00:00 Completed Moderna COVID-19 Vaccine 2020-12-03 00:00:00 Completed Moderna COVID-19 Vaccine 2020-12-03 00:00:00 Completed Moderna COVID-19 Vaccine 2020-12-03 00:00:00 Completed TDAP Unknown Completed [facility] TDAP Unknown Completed [facility] TDAP Unknown Completed [facility] TDAP Unknown Completed [facility] Vital Signs Vital Name Observation Time Observation Value Comments S ource Systolic blood pressure 2024-06-15 18:20:00 112 mm[Hg] [facility] Diastolic blood pressure 2024-06-15 18:20:00 70 mm[Hg] [facility] Heart rate 2024-06-15 18:20:00 99 /min [facility] Body temperature 2024-06-15 18:20:00 36.89 Amairani [facility] Oxygen saturation in Arterial blood by Pulse oximetry 2024-06-15 18:20:00 97 /min [facility] Body weight 2024-06-15 18:18:00 89.041 kg [facility] BMI 2024-06-15 18:18:00 39.65 kg/m2 [facility] Systolic blood pressure 2024-06-07 03:42:00 120 mm[Hg] [facility] Diastolic blood pressure 2024-06-07 03:42:00 79 mm[Hg] [facility] Heart rate 2024-06-07 03:42:00 85 /min [facility] Body temperature 2024-06-07 03:42:00 36.78 Amairani [facility] Respiratory rate 2024-06-07 03:42:00 16 /min [facility] Body height 2024-06-07 03:42:00 149.9 cm Univ [facility] Body weight 2024-06-07 03:42:00 88.451 kg [facility] BMI 2024-06-07 03:42:00 39.39 kg/m2 [facility] Oxygen saturation in Arterial blood by Pulse oximetry 2024-06-07 03:42:00 99 /min [facility] Systolic blood pressure 2023-09-29 17:09:00 133 mm[Hg] [facility] Diastolic blood pressure 2023-09-29 17:09:00 81 mm[Hg] [facility] Heart rate 2023-09-29 17:09:00 97 /min [facility] Body temperature 2023-09-29 17:09:00 36.72 Amairani [facility] Respiratory rate 2023-09-29 17:09:00 16 /min [facility] Body height 2023-09-29 17:09:00 149.9 cm [facility] Body weight 2023-09-29 17:09:00 87.091 kg [facility] BMI 2023-09-29 17:09:00 38.78 kg/m2 [facility] Oxygen saturation in Arterial blood by Pulse oximetry 2023-09-29 17:09:00 99 /min [facility] Systolic blood pressure 2023-09-16 20:47:00 108 mm[Hg] [facility] Diastolic blood pressure 2023-09-16 20:47:00 71 mm[Hg] [facility] Heart rate 2023-09-16 20:47:00 86 /min Un[facility] Body temperature 2023-09-16 20:47:00 36 Amairani [facility] Respiratory rate 2023-09-16 20:47:00 18 /min [facility] Body height 2023-09-16 20:47:00 149.9 cm [facility] Body weight 2023-09-16 20:47:00 87.907 kg [facility] BMI 2023-09-16 20:47:00 39.14 kg/m2 [facility] Oxygen saturation in Arterial blood by Pulse oximetry 2023-09-16 20:47:00 97 /min [facility] Systolic blood pressure 2023-08-30 19:48:00 126 mm[Hg] [facility] Diastolic blood pressure 2023-08-30 19:48:00 84 mm[Hg] [facility] Heart rate 2023-08-30 19:48:00 97 /min [facility] Body temperature 2023-08-30 19:48:00 36.61 Amairani [facility] Respiratory rate 2023-08-30 19:48:00 17 /min [facility] Body height 2023-08-30 19:48:00 149.9 cm [facility] Body weight 2023-08-30 19:48:00 87.454 kg [facility] BMI 2023-08-30 19:48:00 38.94 kg/m2 [facility] Oxygen saturation in Arterial blood by Pulse oximetry 2023-08-30 19:48:00 99 /min [facility] Systolic blood pressure 2023-05-03 13:54:00 108 mm[Hg] [facility] Diastolic blood pressure 2023-05-03 13:54:00 71 mm[Hg] [facility] Heart rate 2023-05-03 13:53:00 63 /min [facility] Body temperature 2023-05-03 13:53:00 36.61 Amairani [facility] Body height 2023-05-03 13:53:00 149.9 cm [facility] Body weight 2023-05-03 13:53:00 78.654 kg [facility] BMI 2023-05-03 13:53:00 35.02 kg/m2 [facility] Systolic blood pressure 2023-04-26 18:19:00 117 mm[Hg] [facility] Diastolic blood pressure 2023-04-26 18:19:00 77 mm[Hg] [facility] Heart rate 2023-04-26 18:19:00 94 /min Un[facility] Body temperature 2023-04-26 18:19:00 36.89 Amairani [facility] Body height 2023-04-26 18:19:00 149.9 cm [facility] Body weight 2023-04-26 18:19:00 78.472 kg [facility] BMI 2023-04-26 18:19:00 34.94 kg/m2 [facility] Systolic blood pressure 2023-03-26 00:38:00 120 mm[Hg] [facility] Diastolic blood pressure 2023-03-26 00:38:00 63 mm[Hg] [facility] Heart rate 2023-03-26 00:38:00 88 /min [facility] Body temperature 2023-03-26 00:38:00 36.22 Amairani [facility] Respiratory rate 2023-03-26 00:38:00 16 /min [facility] Oxygen saturation in Arterial blood by Pulse oximetry 2023-03-26 00:38:00 98 /min [facility] Body height 2023-03-24 07:51:00 149.9 cm [facility] Body weight 2023-03-24 07:51:00 82.736 kg [facility] BMI 2023-03-24 07:51:00 36.84 kg/m2 [facility] Systolic blood pressure 2023-03-22 19:11:00 115 mm[Hg] [facility] Diastolic blood pressure 2023-03-22 19:11:00 73 mm[Hg] [facility] Heart rate 2023-03-22 19:11:00 84 /min Unive [facility] Body temperature 2023-03-22 19:11:00 36.5 Amairani [facility] Body height 2023-03-22 19:11:00 149.9 cm [facility] Body weight 2023-03-22 19:11:00 82.736 kg [facility] BMI 2023-03-22 19:11:00 36.84 kg/m2 [facility] Systolic blood pressure 2023-03-15 20:11:00 118 mm[Hg] [facility] Diastolic blood pressure 2023-03-15 20:11:00 72 mm[Hg] [facility] Heart rate 2023-03-15 20:11:00 86 /min Unive [facility] Body temperature 2023-03-15 20:11:00 36.78 Amairani [facility] Respiratory rate 2023-03-15 20:11:00 18 /min [facility] Body height 2023-03-15 20:11:00 149.9 cm [facility] Body weight 2023-03-15 20:11:00 81.285 kg [facility] BMI 2023-03-15 20:11:00 36.19 kg/m2 [facility] Oxygen saturation in Arterial blood by Pulse oximetry 2023-03-15 20:11:00 99 /min [facility] Systolic blood pressure 2023-03-08 19:11:00 107 mm[Hg] [facility] Diastolic blood pressure 2023-03-08 19:11:00 68 mm[Hg] [facility] Heart rate 2023-03-08 19:11:00 91 /min Un[facility] Body temperature 2023-03-08 19:11:00 36.78 Amairani [facility] Respiratory rate 2023-03-08 19:11:00 18 /min [facility] Body height 2023-03-08 19:11:00 149.9 cm [facility] Body weight 2023-03-08 19:11:00 80.65 kg [facility] BMI 2023-03-08 19:11:00 35.91 kg/m2 [facility] Oxygen saturation in Arterial blood by Pulse oximetry 2023-03-08 19:11:00 99 /min [facility] Systolic blood pressure 2023-03-01 19:38:00 109 mm[Hg] [facility] Diastolic blood pressure 2023-03-01 19:38:00 68 mm[Hg] [facility] Heart rate 2023-03-01 19:37:00 91 /min [facility] Body temperature 2023-03-01 19:37:00 36.61 Amairani [facility] Respiratory rate 2023-03-01 19:37:00 20 /min [facility] Body height 2023-03-01 19:37:00 149.9 cm [facility] Body weight 2023-03-01 19:37:00 79.198 kg [facility] BMI 2023-03-01 19:37:00 35.26 kg/m2 [facility] Oxygen saturation in Arterial blood by Pulse oximetry 2023-03-01 19:37:00 97 /min [facility] Systolic blood pressure 2023-02-14 19:30:00 115 mm[Hg] [facility] Diastolic blood pressure 2023-02-14 19:30:00 70 mm[Hg] [facility] Heart rate 2023-02-14 19:30:00 91 /min [facility] Body temperature 2023-02-14 19:30:00 36.72 Amairani [facility] Respiratory rate 2023-02-14 19:30:00 18 /min [facility] Body height 2023-02-14 19:30:00 149.9 cm [facility] 2023-02-14 19:30:00 79.379 kg [facility] BMI 2023-02-14 19:30:00 35.35 kg/m2 [facility] Systolic blood pressure 2023-02-02 18:52:00 101 mm[Hg] [facility] Diastolic blood pressure 2023-02-02 18:52:00 65 mm[Hg] [facility] Heart rate 2023-02-02 18:52:00 102 /min [facility] Body temperature 2023-02-02 18:52:00 36.72 Amairani [facility] Respiratory rate 2023-02-02 18:52:00 16 /min [facility] Body height 2023-02-02 18:52:00 149.9 cm [facility] Body weight 2023-02-02 18:52:00 79.198 kg [facility] BMI 2023-02-02 18:52:00 35.26 kg/m2 [facility] Oxygen saturation in Arterial blood by Pulse oximetry 2023-02-02 18:52:00 97 /min [facility] Heart rate 2023-02-02 03:49:00 78 /min [facility] Oxygen saturation in Arterial blood by Pulse oximetry 2023-02-02 03:49:00 100 /min [facility] Systolic blood pressure 2023-02-02 00:26:00 113 mm[Hg] [facility] Diastolic blood pressure 2023-02-02 00:26:00 59 mm[Hg] [facility] Body temperature 2023-02-02 00:26:00 36.78 Amairani [facility] Respiratory rate 2023-02-02 00:26:00 16 /min [facility] Body height 2023-02-02 00:26:00 149.9 cm [facility] Body weight 2023-02-02 00:26:00 77.928 kg [facility] BMI 2023-02-02 00:26:00 34.70 kg/m2 [facility] Systolic blood pressure 2023-01-19 20:35:00 118 mm[Hg] [facility] Diastolic blood pressure 2023-01-19 20:35:00 74 mm[Hg] [facility] Heart rate 2023-01-19 20:35:00 86 /min Unive [facility] Respiratory rate 2023-01-19 20:35:00 18 /min [facility] Body height 2023-01-19 20:35:00 149.9 cm [facility] Body weight 2023-01-19 20:35:00 77.111 kg [facility] BMI 2023-01-19 20:35:00 34.34 kg/m2 [facility] Heart rate 2023-01-16 22:45:00 92 /min Un[facility] Oxygen saturation in Arterial blood by Pulse oximetry 2023-01-16 22:45:00 96 /min [facility] Systolic blood pressure 2023-01-16 22:00:00 105 mm[Hg] [facility] Diastolic blood pressure 2023-01-16 22:00:00 56 mm[Hg] [facility] Respiratory rate 2023-01-16 22:00:00 18 /min [facility] Body temperature 2023-01-16 21:15:00 37.56 Amairani [facility] Body height 2023-01-16 21:15:00 149.9 cm [facility] Body weight 2023-01-16 20:13:00 78.019 kg [facility] BMI 2023-01-16 20:13:00 34.74 kg/m2 [facility] Systolic blood pressure 2022-09-27 20:07:00 96 mm[Hg] [facility] Diastolic blood pressure 2022-09-27 20:07:00 55 mm[Hg] [facility] Heart rate 2022-09-27 20:07:00 85 /min Unive [facility] Body temperature 2022-09-27 20:07:00 36.89 Amairani [facility] Respiratory rate 2022-09-27 20:07:00 18 /min [facility] Body height 2022-09-27 20:07:00 149.9 cm [facility] Body weight 2022-09-27 20:07:00 78.926 kg [facility] BMI 2022-09-27 20:07:00 35.14 kg/m2 [facility] BP Systolic 2022-09-07 17:31:00 96 mm[Hg] [...] Date / Time Performed Performing Clinician Source FREE T4 2024-06-15 19:18:00 Caroline Ruano [facility] THYROID STIMULATING HORMONE 2024-06-15 19:18:00 Caroline Ruano [facility] COMP. METABOLIC PANEL (42528) 2024-06-15 19:18:00 Caroline Ruano [facility] LIPID PANEL (24771)(TOTAL CHOLESTEROL, TRIGLYCERIDES, HDL) 2024-06-15 19:18:00 Caroline Ruano [facility] CBC WITH DIFF 2024-06-15 19:18:00 Caroline Ruano [facility] GLYCOSYLATED HEMOGLOBIN (A1C) 2024-06-15 19:18:00 Caroline Ruano [facility] HCV ANTIBODY 2024-06-15 19:18:00 Caroline Ruano [facility] VITAMIN D, 25-OH 2024-06-15 19:18:00 Caroline Ruano [facility] FREE T3 2024-06-15 19:18:00 Caroline Ruano [facility] PNEUMOCOCCAL 20 CONJUGATE (PREVNAR 20) VACCINE 2024-06-15 18:48:24 Caroline Ruano [facility] POCT MOLECULAR FLU 2024-06-15 18:27:00 Justino Ruano [facility] POCT MOLECULAR STREP 2024-06-15 18:26:00 Brian Ruano [facility] INFLUENZA A/B RSV COVID NAAT 2024-06-07 03:52:00 Miguel Hickman [facility] ASSIGNMENT OF BENEFITS 2023-09-29 17:42:04 Docto r Unassigned, Nekoma [facility] POCT TEST 2023-09-29 17:32:00 Hossein Garcia [facility] CONSENT/REFUSAL FOR DIAGNOSIS AND TREATMENT 2023-09-29 16:48:59 Doctor Unassigned, Nekoma [facility] POCT MOLECULAR FLU 2023-08-30 19:57:00 Giulia Calderon [facility] POCT SARS-COV-2 ANTIGEN (BINAX NOW) 2023-08-30 00:00:00 Giulia Calderon [facility] CONSENT FOR CONTRACEPTION 2023-05-03 05:01:00 Doctor Unassigned, Nekoma [facility] POCT TEST 2023-05-03 00:00:00 Mendoza Washburn [facility] CBC WITH DIFF 2023-03-25 09:22:00 Mendoza Washburn [facility] CENTRAL NEURAXIAL BLOCK 2023-03-24 13:45:00 Gloria Irwin [facility] HB ABO GROUPING 2023-03-24 07:29:00 Mendoza Washburn [facility] RHO (D) IMMUNE GLOBULIN 2023-03-24 07:29:00 Mendoza Washburn [facility] HOSPITAL ADMISSION 2023-03-24 05:01:00 Doctor Un assigned, Nekoma [facility] PHYSICIAN ORDERS 2023-03-23 05:01:00 Doctor Unas signed, Nekoma [facility] ASSIGNMENT OF BENEFITS 2023-03-22 20:08:09 Docto r Unassigned, Nekoma [facility] POCT URINALYSIS W/O SPECIFIC GRAVITY 2023-03-22 00:00:00 Mendoza Washburn [facility] POCT URINALYSIS W/O SPECIFIC GRAVITY 2023-03-15 00:00:00 Sadia Newman [facility] POCT URINALYSIS W/O SPECIFIC GRAVITY 2023-03-08 00:00:00 Maddison Mendoza Chaparro [facility] >14 WEEKS US LIMITED 2023-03-01 20:38:15 WashburnMendoza [facility] POCT URINALYSIS W/O SPECIFIC GRAVITY 2023-03-01 00:00:00 MaddisonMendoza Chaparro [facility] EXTERNAL PROVIDER RECORDS 2023-02-24 05:01:00 Doctor Unassigned, Nekoma [facility] AUTHORIZATION TO RELEASE PHI TO [facility] 2023-02-14 05:01:00 Doctor Unassigned, Nekoma [facility] POCT URINALYSIS W/O SPECIFIC GRAVITY 2023-02-14 00:00:00 Mendoza Washburn [facility] US PELVIS > 14 WEEKS 2023-02-02 03:42:09 AdumViviane [facility] CONSENT/REFUSAL FOR DIAGNOSIS AND TREATMENT 2023-02-01 23:58:19 Doctor Unassigned, Nekoma [facility] EXTERNAL PROVIDER RECORDS 2023-01-20 05:01:00 Doctor Unassigned, Nekoma [facility] TDAP VACCINE, >11 YRS, IM 2023-01-19 20:37:39 Indira Kelly [facility] POCT URINALYSIS W/O SPECIFIC GRAVITY 2023-01-19 00:00:00 Indira Kelly [facility] RAPID STREP SCREEN FOR GROUP A 2023-01-16 20:18:00 Kassidy Fowler [facility] RAPID INFLUENZA A/B 2023-01-16 20:18:00 Kassidy Fowler [facility] COVID-19 (ID NOW RAPID TESTING) 2023-01-16 20:18:00 Kassidy Fowler [facility] CONSENT/REFUSAL FOR DIAGNOSIS AND TREATMENT 2023-01-16 20:07:04 Doctor Unassigned, Nekoma [facility] AUTHORIZATION TO RELEASE PHI TO [facility] 2023-01-05 05:01:00 Doctor Unassigned, Nekoma [facility] FALL RISK ASSESSMENT 2022-10-20 06:01:00 Doctor Unassigned, Nekoma [facility] GC & CHLAMYDIA AMPLIFIED ASSAY 2022-09-27 23:00:00 Indira Kelly [facility] TRICHOMONAS AMPLIFIED ASSAY 2022-09-27 23:00:00 Indira Kelly [facility] ASSIGNMENT OF BENEFITS 2022-09-27 19:38:59 Docto r Unassigned, Nekoma [facility] POCT URINALYSIS W/O SPECIFIC GRAVITY 2022-09-27 00:00:00 Indira Kelly [facility] Plan of Care Planned Activity Planned Date Details Comments Source Goal Plan of Care Note [code = 37103-2] Goal Plan of Care Note [code = 65972-1] Goal Plan of Care Note [code = 03547-7] Goal Plan of Care Note [code = 87832-8] Goal Plan of Care Note [code = 07329-7] Goal Plan of Care Note [code = 57550-6] Goal Plan of Care Note [code = 03163-4] Goal Plan of Care Note [code = 02945-8] Goal Plan of Care Note [code = 17657-2] Goal Plan of Care Note [code = 18536-5] Goal Plan of Care Note [code = 16996-8] Goal Plan of Care Note [code = 74442-7] Goal Plan of Care Note [code = 84762-0] Goal Plan of Care Note [code = 86578-2] Goal Plan of Care Note [code = 68985-9] Goal Plan of Care Note [code = 73768-5] Goal Plan of Care Note [code = 58442-9] Goal Plan of Care Note [code = 93678-1] Goal Plan of Care Note [code = 33194-0] Goal Plan of Care Note [code = 77517-9] Goal Plan of Care Note [code = 14092-9] Goal Plan of Care Note [code = 27254-3] Goal Plan of Care Note [code = 30718-6] Goal Plan of Care Note [code = 20672-1] Goal Plan of Care Note [code = 96998-7] Goal Plan of Care Note [code = 67096-6] Goal Plan of Care Note [code = 74552-4] Goal Plan of Care Note [code = 11958-8] Goal Plan of Care Note [code = 85636-3] Goal Plan of Care Note [code = 04709-4] Goal Plan of Care Note [code = 02361-9] Goal Plan of Care Note [code = 59651-5] Goal Plan of Care Note [code = 49391-6] Goal Plan of Care Note [code = 10981-3] Goal Plan of Care Note [code = 62357-1] Goal Plan of Care Note [code = 86227-6] Goal Plan of Care Note [code = 88909-3] Goal Plan of Care Note [code = 02912-6] Goal Plan of Care Note [code = 88455-6] Goal Plan of Care Note [code = 66099-2] Goal Plan of Care Note [code = 14755-9] Goal Plan of Care Note [code = 86405-1] Goal Plan of Care Note [code = 45669-3] Goal Plan of Care Note [code = 77277-5] Goal Plan of Care Note [code = 98647-6] Goal Plan of Care Note [code = 93114-8] Goal Plan of Care Note [code = 35876-1] Goal Plan of Care Note [code = 99814-5] Goal Plan of Care Note [code = 93434-5] Goal Plan of Care Note [code = 92907-5] Goal Plan of Care Note [code = 17196-4] Goal Plan of Care Note [code = 28646-7] Goal Plan of Care Note [code = 67738-8] Goal Plan of Care Note [code = 86885-6] Goal Plan of Care Note [code = 56288-9] Goal Plan of Care Note [code = 48390-4] Goal Plan of Care Note [code = 15716-4] Goal Plan of Care Note [code = 50137-7] Goal Plan of Care Note [code = 72350-4] Goal Plan of Care Note [code = 91321-0] Goal Plan of Care Note [code = 20583-1] Goal Plan of Care Note [code = 88660-2] Goal Plan of Care Note [code = 48744-8] Goal Plan of Care Note [code = 25816-1] Goal Plan of Care Note [code = 01999-6] Goal Plan of Care Note [code = 25738-0] Goal Plan of Care Note [code = 72213-2] Goal Plan of Care Note [code = 20906-0] Goal Plan of Care Note [code = 22562-0] Goal Plan of Care Note [code = 48456-2] Goal Plan of Care Note [code = 42812-0] Goal Plan of Care Note [code = 62756-8] Goal Plan of Care Note [code = 97164-3] Goal Plan of Care Note [code = 98730-3] Goal Plan of Care Note [code = 66920-7] Goal Plan of Care Note [code = 16054-3] Goal Plan of Care Note [code = 59831-4] Goal Plan of Care Note [code = 57004-2] Goal Plan of Care Note [code = 81135-1] Goal Plan of Care Note [code = 61166-1] Goal Plan of Care Note [code = 95956-3] Goal Plan of Care Note [code = 85157-8] Goal Plan of Care Note [code = 54255-4] Goal Plan of Care Note [code = 73775-1] Goal Plan of Care Note [code = 63959-1] Goal Plan of Care Note [code = 66712-3] Goal Plan of Care Note [code = 13059-4] Goal Plan of Care Note [code = 55747-6] Goal Plan of Care Note [code = 33766-1] Goal Plan of Care Note [code = 38125-0] Goal Plan of Care Note [code = 22925-4] Goal Plan of Care Note [code = 52628-2] Goal Plan of Care Note [code = 20431-0] Goal Plan of Care Note [code = 85342-5] Goal Plan of Care Note [code = 67569-8] Encounters Start Date/Time End Date/Time Encounter Type Admission Type Attending Clinicians Care Facility Care Department Encounter ID Source 2023-01-16 18:33:41 Outpatient X [facility] ADAMARIS [id number] [facility] 2024-09-21 13:00:00 2024-09-21 13:00:00 Outpatient CAROLINE BRINK [facility] [id number] [facility] 2024-08-02 14:40:00 2024-08-02 14:40:00 Outpatient R [facility] [id number] [facility] 2024-06-15 14:15:00 2024-06-15 14:58:29 Sales Incentive Analyst Visit 2, [facility] Caroline Ruano 2, [facility] 1.2.840.114 350.1.13.10 4.2.7.2.686 [id number] [facility] 2024-06-15 13:00:00 2024-06-15 14:09:24 Office Visit Caroline Ruano [facility] 1.2.840.114 350.1.13.10 4.2.7.2.686 [id number] [facility] 2024-06-15 13:00:00 2024-06-15 14:09:24 Outpatient R CAROLINE RUANO [facility] [id number] [facility] 2024-06-06 22:50:00 2024-06-07 00:27:00 Emergency X MIGUEL HICKMAN [facility] ERT [id number] [facility] 2024-06-06 22:50:00 2024-06-07 00:27:00 Emergency Miguel Hickman [facility] 1.2.840.114 350.1.13.10 4.2.7.2.686 [id number] [facility] 2023-09-29 12:30:00 2023-09-29 12:30:00 Outpatient R GIULIA CALDERON [facility] [id number] [facility] 2023-09-29 11:12:00 2023-09-29 12:19:00 Emergency X HOSSEIN GARCIA [facility] ERT [id number] [facility] 2023-09-29 11:12:00 2023-09-29 12:19:00 Emergency Hossein Garcia [facility] 1.2.840.114 350.1.13.10 4.2.7.2.686 [id number] [facility] 2023-09-16 15:00:00 2023-09-16 15:12:22 Outpatient R GIULIA CALDERON [facility] [id number] [facility] 2023-09-16 15:00:00 2023-09-16 15:12:22 Office Visit Milton Calderonssica [facility] 1.2.840.114 350.1.13.10 4.2.7.2.686 [id number] [facility] 2023 14:00:00 2023 14:00:00 Outpatient R [facility] [id number] [facility] 2023-08-30 13:30:00 2023-08-30 14:13:23 Outpatient R GIULIA CALDERON [facility] [id number] [facility] 2023-08-30 13:30:00 2023-08-30 14:13:23 Office Visit Giulia Calderon [facility] 1.2.840.114 350.1.13.10 4.2.7.2.686 [id number] [facility] 2023-05-04 13:45:00 2023-05-04 13:45:00 Outpatient R MADDISON MENDOZA [facility] [id number] [facility] 2023-05-03 08:30:00 2023-05-03 08:54:06 Outpatient R MADDISON MENDOZA [facility] [id number] [facility] 2023-05-03 08:30:00 2023-05-03 08:54:06 Office Visit Mendoza Washburn [facility] 1.2.840.114 350.1.13.10 4.2.7.2.686 [id number] [facility] 2023-05-03 00:00:00 2023-05-03 00:00:00 Orders Only Doctor Unassigned, Nekoma [facility] 1.2.840.114 350.1.13.10 4.2.7.2.686 [id number] [facility] 2023-04-27 00:00:00 2023-04-27 00:00:00 Telephone Mendoza Washburn [facility] 1.2.840.114 350.1.13.10 4.2.7.2.686 [id number] [facility] 2023-04-26 13:00:00 2023-04-26 13:33:14 Outpatient R MENDOZA WASHBURN [facility] [id number] [facility] 2023-04-26 13:00:00 2023-04-26 13:33:14 Routine Visit Mendoza Washburn [facility] 1.2.840.114 350.1.13.10 4.2.7.2.686 [id number] [facility] 2023-03-30 00:00:00 2023-03-30 00:00:00 Telephone Mendoza Washburn [facility] 1.2.840.114 350.1.13.10 4.2.7.2.686 [id number] [facility] 2023-03-24 01:37:00 2023-03-25 22:10:00 Inpatient P MENDOZA WASHBURN [facility] ADAMARIS [id number] [facility] 2023-03-24 01:37:00 2023-03-25 22:10:00 Hospital Encounter [facility] 1.2.840.114 350.1.13.10 4.2.7.2.686 [id number] 083 [id number] [facility] 2023-03-24 08:45:00 2023-03-24 21:36:00 Anesthesia Event Stalin Benito Stacey [facility] 1.2.840.114 350.1.13.10 4.2.7.2.686 [id number] 083 [id number] [facility] 2023-03-24 07:00:58 2023-03-24 07:00:58 Anesthesia Event Antelmo Irwin [facility] 1.2.840.114 350.1.13.10 4.2.7.2.686 [id number] 083 [id number] [facility] 2023-03-24 00:00:00 2023-03-24 00:00:00 Orders Only Doctor Unassigned, [place]oma [facility] 1.2.840.114 350.1.13.10 4.2.7.2.686 [id number] 009 [id number] [facility] 2023-03-23 00:00:00 2023-03-23 00:00:00 Orders Only Doctor Unassigned, [place] [facility] 1.2.840.114 350.1.13.10 4.2.7.2.686 [id number] 009 [id number] [facility] 2023-03-22 15:00:00 2023-03-22 15:15:00 Sales Incentive Analyst Visit Pob, Adc Lab Main [facility] BU[facility] 1.2840.114 350.1.13.10 4.2.7.2.686 [id number] [facility] 2023-03-22 15:00:00 2023-03-22 15:00:00 Outpatient R MENDOZA WASHBURN [facility] [id number] [facility] 2023-03-22 14:15:00 2023-03-22 14:47:16 Routine Visit [facility] 1.2.840.114 350.1.13.10 4.2.7.2.686 [id number] 134 [id number] [facility] 2023-03-22 00:00:00 2023-03-22 00:00:00 Orders Only Doctor Unassigned, [place] [facility] 1.20.114 350.1.13.10 4.2.7.2.686 [id number] 009 [id number] [facility] 2023-03-15 15:00:00 2023-03-15 15:23:44 Outpatient R MELITA JEANL XIAO Knight, [facility] [id number] [facility] 2023-03-15 15:00:00 2023-03-15 15:23:44 [facility] 1.2.114 350.1.13.10 4.2.7.2.686 [id number] 134 [id number] [facility] 2023-03-08 14:15:00 2023-03-08 14:29:55 Outpatient R MENDOZA [facility] [id number] [facility] 2023-03-08 14:15:00 2023-03-08 14:29:55 Routine Visit [facility] 1.2.114 350.1.13.10 4.2.7.2.686 [id number] 134 [id number] [facility] 2023-03-03 00:00:00 2023-03-03 00:00:00 Case Management [facility] 1.2.114 350.1.13.10 4.2.7.2.686 [id number] 134 [id number] [facility] 2023-03-01 15:30:00 2023-03-01 15:35:40 Sales Incentive Analyst Visit 2, Adc Lab [facility] 1.20.114 350.1.13.10 4.2.7.2.686 [id number] 353 [id number] [facility] 2023-03-01 14:00:00 2023-03-01 15:17:01 Outpatient R MENDOZA WASHBURN [facility] [id number] [facility] 2023-03-01 14:00:00 2023-03-01 15:17:01 Routine Visit [facility]endoza [facility] 1.2.840.114 350.1.13.10 4.2.7.2.686 [id number] 134 [id number] [facility] 2023-02-25 00:00:00 2023-02-25 00:00:00 Telephone Mendoza [facility] 1.2.840.114 350.1.13.10 4.2.7.2.686 [id number] 134 [id number] [facility] 2023-02-24 00:00:00 2023-02-24 00:00:00 Orders Only Doctor Unassigned, [place] [facility] 1.2.840.114 350.1.13.10 4.2.7.2.686 [id number] 009 [id number] [facility] 2023-02-16 00:00:00 2023-02-16 00:00:00 Telephone Mendoza [facility] 1.2.840.114 350.1.13.10 4.2.7.2.686 [id number] 134 [id number] [facility] 2023-02-16 00:00:00 2023-02-16 00:00:00 Case Management Indira Kelly [facility] 1.2.840.114 350.1.13.10 4.2.7.2.686 [id number] 134 [id number] [facility] 2023-02-15 15:00:00 2023-02-15 16:00:00 Sales Incentive Analyst Visit Ultrasound, Fabian knightRhys [facility] 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 1.114 350.1.13.10 4.2.7.2.686 [id number] [facility] 2023-02-15 15:00:00 2023-02-15 15:00:00 Outpatient P BURGOS JOHNNY RHYS Knight [facility] [id number] [facility] 2023-02-14 14:15:00 2023-02-14 15:13:56 Outpatient R MENDOZA WASHBURN [facility] [id number] [facility] 2023-02-14 14:15:00 2023-02-14 15:13:56 Routine Visit Mendoza [facility] 1.84.114 350.1.13.10 4.2.7.2.686 [id number] 134 [id number] [facility] 2023-02-14 00:00:00 2023-02-14 00:00:00 Orders Only Doctor Unassigned, [place] [facility] 1..114 350.1.13.10 4.2.7.2.686 [id number] 009 [id number] [facility] 2023-02-02 13:45:00 2023-02-02 14:22:21 Outpatient R INDIRA KELLY CHERYAL [facility] [id number] [facility] 2023-02-02 13:45:00 2023-02-02 14:22:21 Routine Visit Indira Kelly [facility] 1.84.114 350.1.13.10 4.2.7.2.686 [id number] 134 [id number] [facility] 2023-02-01 19:10:00 2023-02-02 00:20:00 Outpatient X VIVIANE URIARTE [facility] ADAMARIS [id number] [facility] 2023-02-01 19:10:00 2023-02-02 00:20:00 Emergency Viviane Uriarte [facility] 1.2.840.114 350.1.13.10 4.2.7.2.686 [id number] 083 [id number] [facility] 2023-01-20 00:00:00 2023-01-20 00:00:00 Orders Only Doctor Unassigned, [place] [facility] 1.2.840.114 350.1.13.10 4.2.7.2.686 [id number] 009 [id number] [facility] 2023-01-19 16:15:00 2023-01-19 16:15:00 Routine Visit Indira Kelly [facility] 1.2.840.114 350.1.13.10 4.2.7.2.686 [id number] 134 [id number] [facility] 2023-01-19 16:15:00 2023-01-19 16:01:14 [facility] [id number] [facility] 2023-01-19 00:00:00 2023-01-19 00:00:00 Case Management Indira Kelly [facility] 1.2840.114 350.1.13.10 4.2.7.2.686 [id number] 134 [id number] [facility] 2023-01-16 15:15:00 2023-01-16 18:15:00 Outpatient X OBINNA-LUCIUS S, SADIA XIAO S, SADIA [facility] ADAMARIS [id number] [facility] 2023-01-16 15:15:00 2023-01-16 18:15:00 Emergency MalcolmKassidy loredo s Sadia [facility] 1.2.840.114 350.1.13.10 4.2.7.2.686 [id number] 083 [id number] [facility] 2023-01-14 14:53:49 2023-01-14 14:53:49 Outpatient [facility] [id number] Serafin Arriola 2023-01-13 00:00:00 2023-01-13 00:00:00 Telephone TriIndira almaraz [facility] 1.2840.114 350.1.13.10 4.2.7.2.686 [id number] 134 [id number] [facility] 2023-01-05 00:00:00 2023-01-05 00:00:00 Orders Only Doctor Unassigned, [place] [facility] 1.2840.114 350.1.13.10 4.2.7.2.686 [id number] 009 [id number] [facility] 2022-11-08 10:00:00 2022-11-08 10:00:00 Outpatient P [facility] [id number] [facility] 2022-11-05 08:30:00 2022-11-05 08:30:00 Outpatient P [facility] [id number] [facility] 2022-10-25 09:15:00 2022-10-25 09:15:00 Outpatient R [facility]DIRA [facility] [id number] [facility] 2022-10-20 00:00:00 2022-10-20 00:00:00 Orders Only Doctor Unassigned, [place] [facility] 1.2840.114 350.1.13.10 4.2.7.2.686 [id number] 009 [id number] [facility] 2022-10-17 00:00:00 2022-10-17 00:00:00 Telephone Indira Kelly [facility] 1.840.114 350.1.13.10 4.2.7.2.686 [id number] 134 [id number] [facility] 2022-10-11 00:00:00 2022-10-11 00:00:00 Telephone Indira Kelly [facility] 1.2.840.114 350.1.13.10 4.2.7.2.686 [id number] 134 [id number] [facility] 2022-10-01 00:00:00 2022-10-01 00:00:00 Letter (Out) Indira Kelly [facility] 1.2.840.114 350.1.13.10 4.2.7.2.686 [id number] 134 [id number] [facility] 2022-09-30 10:15:05 2022-09-30 10:15:05 Outpatient [facility] [id number] Serafin Arriola 2022-09-27 16:36:06 2022-09-27 16:36:06 Outpatient [facility] [id number] Serafin Arriola 2022-09-27 13:30:00 2022-09-27 14:33:13 [facility] [id number] [facility] 2022-09-27 13:30:00 2022-09-27 14:33:13 Initial Visit Indira Kelly [facility] 1.2840.114 350.1.13.10 4.2.7.2.686 [id number] 134 [id number] [facility] 2022-09-27 00:00:00 2022-09-27 00:00:00 Orders Only Doctor Unassigned, [place] [facility] 1.2.840.114 350.1.13.10 4.2.7.2.686 [id number] 009 [id number] [facility] 2022-09-08 13:23:15 2022-09-08 13:23:15 Outpatient [facility] [id number] Serafin Arriola 2022-09-07 17:08:57 2022-09-07 17:08:57 Outpatient [facility] [id number] Serafin Arriola 2022-09-07 00:00:00 2022-09-07 00:00:00 Outpatient Visit [id number] 2022-07-27 13:04:42 2022-07-27 13:04:42 Outpatient [facility] [id number] Serafin Arriola 2022-03-31 00:00:00 2022-03-31 00:00:00 Outpatient Visit [id number] -[id number] [id number] 2022-02-25 00:00:00 2022-02-25 00:00:00 Outpatient Visit [id number] -[id number]-[id number]-8 [id number] 12cbff Results Test Description Test Time Test Comments Results Result Co mments Source [facility], [id number] 05:12:26* Test Item Value Reference Range Interpretation Comme nts VIT D 25OH (test code = 91123-2) 17 ng/mL 25-80 L NORMAN (test code = NORMAN) Deficiency: <20 ng/mLInsufficiency: 20-24 ng/mLOptimal: 25-80 ng/mL Lab Interpretation (test code = 00745-4) Abnormal [facility] Hospital[facility] Stimulating [id number] 22:22:34 * Test Item Value Reference Range Interpretation Comme nts TSH (test code = 9525521045) 2.50 0.45-4.70 Biotin has been reported to cause a negative bias, interpret results relative to patient's use of biotin. Lab Interpretation (test code = 25507-3) Normal [facility] HospitalFr [id number] 22:08:55* Test Item Value Reference Range Interpretation Comme nts FREE T4 (test code = 9020669721) 1.06 0.78-2.20 Lab Interpretation (test cod e = 02863-5) Normal [facility] [id number] 22:08:34* Test Item Value Reference Range Interpretation Comme nts FREE T3 (test code = 3987638792) 4.35 pg/mL 2.77-5.27 Lab Interpretation (test cod e = 37819-2) Normal [facility] HospitalGlycosylated Hemoglobin (A1C)2024-06-15 22:05:38* Test Item Value Reference Range Interpretation Comme nts HGB A1C (test code = 4548-4) 5.2 % 4.0-5.7 NORMAN (test code = NORMAN) Reference RangesNormal: <5.7%Prediabetes: 5.7 - 6.4%Diabetes: > 6.5% Lab Interpretation (test code = 72277-8) Normal [facility] HospitalCb with [id number] 21:53:50* Test Item Value Reference Range Interpretation Comme nts WBC (test code = 6690-2) 6.31 4.30-11.10 RBC (test code = 789-8) 5.01 3.93-5.25 HGB (test code = 718-7) 13.6 g/dL 11.6-15.0 HCT (test code = 4544-3) 42.0 % 35.7-45.2 MCV (test code = 787-2) 83.8 fL 80.6-95.5 MCH (test code = 785-6) 27.1 pg 25.9-32.8 MCHC (test code = 786-4) 32.4 g/dL 31.6-35.1 RDW-SD (test code = 82919-2) 39.2 fL 39.0-49.9 RDW-CV (test code = 788-0) 12.9 % 12.0-15.5 PLT (test code = 777-3) 352 166-358 MPV (test code = 90406-3) 10.0 fL 9.5-12.9 NRBC/100 WBC (test code = 6696174770) 0.0 0.0-10.0 NRBC x10^3 (test code = 1187966939) See_Comment [Automated me ssage] The system which generated this result transmitted reference range: 10*3/?L. The reference range was not used to interpret this result as normal/abnormal. GRAN MAT (NEUT) % (test code = 770-8) 50.3 % IMM GRAN % (test code = 8688020535) 0.20 % LYMPH % (test code = 736-9) 36.1 % MONO % (test code = 5905-5) 8.7 % EOS % (test code = 713-8) 4.1 % BASO % (test code = 706-2) 0.6 % GRAN MAT x10^3(ANC) (test code = 7314708665) 3.17 10*3/uL 1.88-7.09 IMM GRAN x10^3 (test code = 0789846890) 0.00-0.06 LYMPH x10^3 (test code = 731-0) 2.28 10*3/uL 1.32-3.29 MONO x10^3 (test code = 742-7) 0.55 10*3/uL 0.33-0.92 EOS x10^3 (test code = 711-2) 0.26 10*3/uL 0.03-0.39 BASO x10^3 (test code = 704-7) 0.04 10*3/uL 0.01-0.07 [facility] HospitalLipid Panel (67471)(Total Cholesterol, Triglycerides, HDL)2024-06-15 21:52:30* Test Item Value Reference Range Interpretation Comme nts CHOL (test code = 7111762217) 140 mg/dL 120-200 HDL (test code = 2180245638) 43 mg/dL >=50 L HDLC RATIO (test code = 8858409892) 3.3 <=4.5 TRIG (test code = 6030369434) 146 mg/dL 30-170 LDL CHOL (test code = 23598-6) 68 mg/dL <=160 VLDL (test code = 8161267494) 29 mg/dL 5-60 Lab Interpretation (test cod e = 24867-4) Abnormal [facility] HospitalComp. Metabolic Panel (14819)2024-06-15 21:52:09* Test Item Value Reference Range Interpretation Comme nts NA (test code = 1868888413) 136 mmol/L 135-145 K (test code = 1340869775) 4.0 mmol/L 3.5-5.0 CL (test code = 4717654797) 104 mmol/L 98-108 CO2 TOTAL (test code = 7000192557) 25 mmol/L 23-31 AGAP (test code = 5249156481) 7 2-16 BUN (test code = 4337426031) 6 mg/dL 7-23 L GLUCOSE (test code = 3251734027) 95 mg/dL 70-110 CREATININE (test code = 2160-0) 0.68 mg/dL 0.50-1.04 TOTAL BILI (test code = 5406784371) 0.3 mg/dL 0.1-1.1 CALCIUM (test code = 9607328450) 9.0 mg/dL 8.6-10.6 T PROTEIN (test code = 8429283430) 6.3 g/dL 6.3-8.2 ALBUMIN (test code = 2351632898) 3.7 g/dL 3.5-5.0 ALK PHOS (test code = 1336119264) 90 U/L 34-122 ALTv (test code = 1742-6) 22 U/L 5-35 AST(SGOT) (test code = 1030545143) 27 U/L 13-40 eGFR (test code = 02529-5) 118.1 mL/min/1.73m2 CKD-EPI eGFR (2020). Assuming creatinine has been stable day-to-day for at least three months, the eGFR indicates Category G1 (>= 90 mL/min/1.73 m2) Lab Interpretation (test code = 82054-4) Abnormal [facility] Molecular [id number] 18:38:44* Test Item Value Reference Range Interpretation Comme nts POCT Molecular FluA (test co de = 22494-3) Negative Negative POCT Molecular FluB (test co de = 21036-1) Negative Negative Lab Interpretation (test cod e = 09151-7) Normal [facility] MOLECULAR [id number] 18:33:23* Test Item Value Reference Range Interpretation Comme nts POCT Molecular Strep (test c ode = 06378-3) Negative Negative Lab Interpretation (test cod e = 23242-1) Normal [facility] [id number] 17:32:00* Test Item Value Reference Range Interpretation Comme nts POCT PREG (test code = 1605) Negative On board controls acceptable with C Line (test code = 3574) Yes POCT PREG LOT # (test code = 3575) 598245 POCT PREG TEST DATE ( test code = 3576) 11/27/2024 Lab Interpretation (test cod e = 46814-1) Normal [facility] SARS-COV-2 ANTIGEN (BINAX NOW)2023-08-30 20:11:00* Test Item Value Reference Range Interpretation Comme nts POCT SARS-COV-2 ANTIGEN (jaylen t code = 45468-0) Not Detected Not Detected On board controls acceptable with C Line (test code = 3574) Yes [facility] SARS-COV-2 ANTIGEN (BINAX NOW)2023-08-30 20:11:00* Test Item Value Reference Range Interpretation Comme nts POCT SARS-COV-2 ANTIGEN (jaylen t code = 14727-2) Not Detected Not Detected On board controls acceptable with C Line (test code = 3574) Yes [facility] Molecular [id number] 20:08:24* Test Item Value Reference Range Interpretation Comme nts POCT Molecular FluA (test co de = 21539-6) Negative Negative POCT Molecular FluB (test co de = 92700-9) Negative Negative Lab Interpretation (test cod e = 19746-6) Normal [facility] Molecular [id number] 20:08:24* Test Item Value Reference Range Interpretation Comme nts POCT Molecular FluA (test co de = 28916-2) Negative Negative POCT Molecular FluB (test co de = 37863-3) Negative Negative Lab Interpretation (test cod e = 35690-7) Normal [facility] [id number] 13:52:00* Test Item Value Reference Range Interpretation Comme nts POCT PREG (test code = 1605) Negative On board controls acceptable with C Line (test code = 3574) Yes POCT PREG LOT # (test code = 3575) POCT PREG TEST DATE ( test code = 3576) [facility]PO[facility] [id number] 13:52:00* Test Item Value Reference Range Interpretation Comme nts POCT PREG (test code = 1605) Negative On board controls acceptable with C Line (test code = 3574) Yes POCT PREG LOT # (test code = 3575) POCT PREG TEST DATE ( test code = 3576) [facility] HospitalCBC with [id number] 11:42:28* Test Item Value Reference Range Interpretation [...] 33.2 g/dL 31.6-35.1 RDW-SD (test code = 19828-7) 41.7 fL 39.0-49.9 RDW-CV (test code = 788-0) 14.4 % 12.0-15.5 PLT (test code = 777-3) 287 See_Comment [Automated message] The system which generated this result transmitted reference range: 166 - 358 10*3/?L. The reference range was not used to interpret this result as normal/abnormal. MPV (test code = 41808-4) 10.2 fL 9.5-12.9 NRBC/100 WBC (test code = 2996787281) 0.0 See_Comment [Automated message] The system which generated this result transmitted reference range: 0.0 - 10.0 /100 WBCs. The reference range was not used to interpret this result as normal/abnormal. NRBC x10^3 (test code = 2693358619) See_Comment [Automated message] The system which generated this result transmitted reference range: 10*3/?L. The reference range was not used to interpret this result as normal/abnormal. GRAN MAT (NEUT) % (test code = 770-8) 85.9 % IMM GRAN % (test code = 5989059853) 0.70 % LYMPH % (test code = 736-9) 9.3 % MONO % (test code = 5905-5) 3.8 % EOS % (test code = 713-8) 0.1 % BASO % (test code = 706-2) 0.2 % GRAN MAT x10^3(ANC) (test code = 5619607089) 17.05 10*3/uL 1.88-7.09 H IMM GRAN x10^3 (test code = 7444756362) 0.13 10*3/uL 0.00-0.06 H LYMPH x10^3 (test code = 731-0) 1.84 10*3/uL 1.32-3.29 MONO x10^3 (test code = 742-7) 0.76 10*3/uL 0.33-0.92 EOS x10^3 (test code = 711-2) 0.03-0.39 L BASO x10^3 (test code = 704-7) 0.04 10*3/uL 0.01-0.07 BANDS (test code = 6914258337) Increased A Lab Interpretation (test code = 27061-4) Abnormal [facility] Hospital[facility]HO (D) IMMUNE [id number] 09:52:15* Test Item Value Reference Range Interpretation Comme nts RHIG CANDIDATE? (test code = 5188) No- see comment Patient is not a candidate for RhIg- Patient is Rh Positive.Performed at [facility] Laboratory Services - [facility] Blood [address] [place] [phone] Free: [phone] No. [id number] [facility] HospitalType and Screen - ONCE [id number] 08:10:00* Test Item Value Reference Range Interpretation Comme nts ABO & RH (test code = 20) A Positive IAT (test code = 1185) Negative [facility] URINALYSIS W/O SPECIFIC [id number] 19:12:00* Test Item Value Reference Range Interpretation [...] = 3257) 250 Negative - Negati ve [facility] URINALYSIS W/O SPECIFIC [id number] 20:12:00* Test Item Value Reference Range Interpretation [...] = 3257) n/a Negative - Negati ve [facility] W/O SPECIFIC [id number] 19:09:00* Test Item Value Reference Range Interpretation [...] = 3257) n/a Negative - Negati ve [facility] URINALYSIS W/O SPECIFIC [id number] 19:35:00* Test Item Value Reference Range Interpretation [...] = 3257) n/a Negative - Negati ve [facility] URINALYSIS W/O SPECIFIC [id number] 19:36:00* Test Item Value Reference Range Interpretation [...] = 3257) n/a Negative - Negati ve [facility] URINALYSIS W/O SPECIFIC [id number] 19:36:00* Test Item Value Reference Range Interpretation [...] = 3257) n/a Negative - Negati ve [facility]PO[facility] URINALYS[facility] W/O SPECIFIC [id number] 20:39:00* Test Item Value Reference Range Interpretation [...] = 3257) N/A Negative - Negati ve [facility] HospitalPAP TEST, THINPREP, [id number] 14:51:31 * Test Item Value Reference Range Interpretation Comme nts SOURCE: (test code = 8001) Cervical SLIDES: (test code = 8011) 1 LMP: (test code = 8021) 06/20/2022 SPECIMEN ADEQUACY: (test code = 44682) (NOTE) Satisfactory for evaluation. Endocervical cells/transformation zone component present. INTERPRETATION: (test code = 22129) NILM/NO EPITH. ABNORMALITY;SEE BELOW --- - NEGATIVE FOR INTRAEPITHELIAL LESION OR MALIGNANCY (NILM) ---- OTHER COMMENTS: (test code = 8081) (NOTE) Shift in trent suggestive of bacterial vaginosis. COUNTY LIBRARY DIRECTOR : (test code = 8101) Rupali HorowitzOLIVER(ASCP) LOCATION: (test code = 62130) (NOTE) Specimens proces sed and interpreted at [facility], [address] [place] [address], , CLIA: [id number] CPT: (test code = 8140) (NOTE) [address] UNLESS OTH ERWISE INDICATED, COMPUTER AIDED AND COUNTY LIBRARY DIRECTOR SCREENING PERFORMED. The Pap test is a screening test with an inherent, but low probability of error. Your patient should be reminded to consult you immediately if she experiences any suspicious signs or symptoms, regardless of her Pap test result. An alternate report format containing images or consolidated prior Pap history is available as applicable. HPV HIGH RISK WITH GENOTYPE, [id number] 13:47:49* Test Item Value Reference Range Interpretation Comme nts HPV HIGH RISK INTERP (test code = 64465) NEGATIVE NEGATIVE HPV 16 (test code = 47114) NEGATIVE HPV 18 (test code = 52398) NEGATIVE HPV, HR, OTHER GENOTYPES (test code = 38588) NEGATIVE Testing methodol ogy is real-time PCR [...] level of infection or specimen sampling error. [facility] has important pathology staff changes effective 10/20/2022. New pathology staff will provide uninterrupted, excellent patient care and clinical consultation. See URL: [email or web address]. UNLESS OTHERWISE INDICATED, ALL TESTING PERFORMED AT [facility] [address] [place] [address] CLIA: [id number], CAP: [id number] POCT URINALYSIS W/O SPECIFIC [id number] 20:17:00* Test Item Value Reference Range Interpretation [...] = 3257) N/A Negative - Negati ve [facility] [id number] 14:58:32 * Test Item Value Reference Range [...] DETECTED OTHER HEMOGLOBIN VARIANT (test code = 11858) NONE DETEC % NONE DETECTED PATHOLOGIST'S INTERPRETATION (test code = 2577) (NOTE) NO ABNORMAL HEMOGLOBINS IDENTIFIED. LAITH BALLESTEROS M.D. PAP TEST, THINPREP, [id number] 13:40:58* Test Item Value Reference Range Interpretation Comme nts SOURCE: (test code = 8001) Cervical/Endoce rvical SLIDES: (test code = 8011) 2 LMP: (test code = 8021) 07/20/2022 SPECIMEN ADEQUACY: (test code = 74257) (NOTE) Unsatisfactory ( see Interpretation). INTERPRETATION: (test code = 67058) UNSATISFACTORY; SEE BELOW A --- - UNSATISFACTORY FOR EVALUATION Insufficient cellularity (Charges deleted, please resubmit) OTHER COMMENTS: (test code = 8081) (NOTE) Glacial acetic a bijan added due to blood/mucus in specimen. COUNTY LIBRARY DIRECTOR : (test code = 8101) Sara De La Rosa TECHNOLOGIST: (test code = 8111) ANISHA Henry(ASCP) IAC LOCATION: (test code = 30455) (NOTE) Specimens proces sed and interpreted at [facility], [address] [place], [place] [id number], , CLIA: [id number] CPT: (test code = 8140) (NOTE) 96939 UNLESS OTH ERWISE INDICATED, COMPUTER AIDED AND COUNTY LIBRARY DIRECTOR SCREENING PERFORMED. The Pap test is a screening test with an inherent, but low probability of error. Your patient should be reminded to consult you immediately if she experiences any suspicious signs or symptoms, regardless of her Pap test result. An alternate report format containing images or consolidated prior Pap history is available as applicable. CULTURE, [id number] 12:16:01SPECIMEN NUMBER: [id number] CULTURE, URINE SPECIMEN NUMBER: [id number] SPECIMEN COMMENT: URINE SOURCE: URINE REPORT STATUS: FINAL ISOLATE NUMBER 1: IDENTIFICATION: 09/10/2022 10-50,000 CFU/ML STREPTOCO CCUS AGALACTIAE (GROUP B) ADDITIONAL OBSERVATIONS: PENICILLIN AND AMPICILLIN ARE DRUGS OF CHOICE FOR TREATMENT OF B-HEMOLYTIC STREPTOCOCCAL INFECTIONS. SUSCEPTIBILITY TESTING OF PENICILLIN AND OTHER B-LACTAMS APPROVED BY THE [place] FOOD AND DRUG ADMINISTRATION FOR TREATMENT OF B-HEMOLYTIC STREPTOCOCCALINFECTIONS NEED NOT BE PERFORMED ROUTINELY. ADDITIONAL OBSERVATIONS: 09/10/2022 50-100,000 CFU/ML UROGENITAL TRENT PRESENT NO COMMON PATHOGENSHPV HIGH RISK WITH GENOTYPE, [id number] 15:55:11* Test Item Value Reference Range Interpretation Comme nts HPV HIGH RISK INTERP (test code = 43393) NEGATIVE NEGATIVE HPV 16 (test code = 23347) NEGATIVE HPV 18 (test code = 55815) NEGATIVE HPV, HR, OTHER GENOTYPES (test code = 79610) NEGATIVE Testing methodol ogy is real-time PCR [...] error. UNLESS OTHERWISE INDICATED, ALL TESTING PERFORMED [facility], [facility]. [address] [place] [address] FILLER BLOCK INSERTER REMOVER: ASHLEY ZARAGOZA M.D. CLIA NUMBER [id number] [facility] [place]. [id number] VAGINAL PATHOGENS DNA [id number] 15:49:27* Test Item Value Reference Range Interpretation Comme nts BEATA SPECIES (test code = 65940) POSITIVE NEGATIVE A G. VAGINALIS (test code = 96011) POSITIVE NEGATIVE A T. VAGINALIS (test code = 54866) NEGATIVE NEGATIVE Note: The [email or web address] VPIII Microbial Identification Testis a DNA probe test intended for use in the detectionand identification of Beata species, Gardnerellavaginalis and Trichomonas vaginalis nucleic acid. UNLESS OTHERWISE INDICATED, ALL TESTING PERFORMED [facility], [facility]. [address] [place] [address] FILLER BLOCK INSERTER REMOVER: ASHLEY ZARAGOZA M.D. CLIA NUMBER [id number] [place]. [id number] VARICELLA ZOSTER [id number] 13:53:47* Test Item Value Reference Range Interpretation Comme nts VARICELLA ZOSTER IgG (test code = 35082) 51 INDEX SEE BELOW L INTERPRETATI ON [...] . . . INDEX >=165 CT/NG, NAAT, [id number] 13:36:33* Test Item Value Reference Range Interpretation Comme nts CHLAMYDIA, NAAT, THINPREP (test code = 57275) NEGATIVE NEGATIVE A negative resul t does not exclude low level infection, specimensampling error, or collection error. Testing is performed with the [employer] 6800/8800 systems usingreal-time Polymerase Chain Reaction (PCR) method. GONORRHEA, NAAT, THINPREP (test code = 64393) NEGATIVE NEGATIVE A negative resul t does not exclude low level infection, specimensampling error, or collection error. Testing is performed with the [employer] 6800/8800 systems usingreal-time Polymerase Chain Reaction (PCR) method. DRUG ABUSE SCREEN 10 REFLEX [id number] 04:56:34* Test Item Value Reference Range Interpretation Comme nts AMPHETAMINES (test code = 3201) NEGATIVE NEGATIVE BARBITURATES (test code = 3202) NEGATIVE NEGATIVE BENZODIAZEPINES (test code = 3203) NEGATIVE NEGATIVE CANNABINOIDS (test code = 3204) NEGATIVE NEGATIVE COCAINE METABOLITE (test code = 3205) NEGATIVE NEGATIVE OPIATES (test code = 3209) NEGATIVE NEGATIVE OXYCODONE (test code = 41978) NEGATIVE NEGATIVE PHENCYCLIDINE (test code = 3210) NEGATIVE NEGATIVE METHADONE (test code = 3207) NEGATIVE NEGATIVE BUPRENORPHINE (test code = 86914) NEGATIVE NEGATIVE SOURCE (test code = 404719) URINE SEE BELOW FO R THRESHOLDS AND [...] use. UNLESS OTHERWISE INDICATED, ALL TESTING PERFORMED [facility] [address] [place] [address] FILLER BLOCK INSERTER REMOVER: ASHLEY ZARAGOZA M.D. CLIA NUMBER [id number] [facility] [place]. [id number] OBSTETRIC PANEL + [id number] 04:55:00* Test Item Value Reference Range Interpretation [...] 0.00-0.10 ABS NUCLEATED RBCS (test code = 57349) 0.00 K/UL 0.00-0.11 BLOOD TYPE AND RH [...] BELOW RUBELLA IgG INTERP (test code = 69048) REACTIVE REACTIVE INTERPRETATI ON UNITS RANGE NON-REACTIVE/NON-IMM UNE IU/ML <10 REACTIVE/IMMUNE IU/ML >=10 HEPATITIS B SURF AG (test code = 2739) NON-REACTIVE NON-REACTIVE RPR (test code = 75329) NON-REACTIVE NON-REACTIVE RPR TITER (test code = 3500) NOT INDIC. TITER NOT INDIC. HIV 1/2 4TH GEN, RFLX CONF (test code = 3514) NON-REACTIVE NON-REACTIVE HEPATITIS C REFLEX [id number] 04:55:00* Test Item Value Reference Range Interpretation Comme nts HEPATITIS C ANTIBODY (test c ode = 4675) NON-REACTIVE NON-REACTIVE VAGINAL PATHOGENS DNA [id number] 17:28:27* Test Item Value Reference Range Interpretation Comme nts BEATA SPECIES (test code = ) NEGATIVE NEGATIVE G. VAGINALIS (test code = 60147) POSITIVE NEGATIVE A T. VAGINALIS (test code = ) NEGATIVE NEGATIVE UNLESS OTHERWISE INDICATED, ALL TESTING PERFORMED [facility] [address] [place] [address] FILLER BLOCK INSERTER REMOVER: ASHLEY ZARAGOZA M.D. [place] NUMBER [id number] [facility] [place]. [id number] VAGINAL PATHOGENS DNA [id number] 00:00:00* Test Item Value Reference Range Interpretation Comme nts BEATA SPECIES (test code = ) NEGATIVE G. VAGINALIS (test code = 82376) POSITIVE T. VAGINALIS (test code = 71907) NEGATIVE VAGINAL PATHOGENS DNA [id number] 00:00:00* Test Item Value Reference Range Interpretation Comme nts BEATA SPECIES (test code = 42580) NEGATIVE G. VAGINALIS (test code = 18971) POSITIVE T. VAGINALIS (test code = 87213) NEGATIVE CULTURE, [id number] 11:55:32SPECIMEN NUMBER: [id number] CULTURE, URINE SPECIMEN NUMBER: [id number] SPECIMEN COMMENT: URINE SOURCE: URINE REPORT STATUS: FINAL FINAL REPORT: 02/28/2022 10-50,000 CFU/ML UROGENITAL TRENT PRESENT NO CO MMON PATHOGENSCULTURE, [id number] 00:00:00* Test Item Value Reference Range Interpretation Comme nts CULTURE, URINE (test code = 69832) SPECIMEN NUMBER: [id number] CULTURE, [id number] 00:00:00* Test Item Value Reference Range Interpretation Comme nts CULTURE, URINE (test code = 14834) SPECIMEN NUMBER: [id number] CHLAMYDIA, AMPLIFIED, [id number] 00:00:00* Test Item Value Reference Range Interpretation Comme nts CHLAMYDIA, NAAT (test code = 02219) NEGATIVE GC, AMPLIFIED, [id number] 00:00:00* Test Item Value Reference Range Interpretation Comme nts GONORRHEA, NAAT (test code = 91096) NEGATIVE CHLAMYDIA, AMPLIFIED, [id number] 00:00:00* Test Item Value Reference Range Interpretation Comme nts CHLAMYDIA, NAAT (test code = 34825) NEGATIVE CHLAMYDIA, AMPLIFIED, [id number] 00:00:00* Test Item Value Reference Range Interpretation Comme nts CHLAMYDIA, NAAT (test code = 17378) NEGATIVE GC, AMPLIFIED, [id number] 00:00:00* Test Item Value Reference Range Interpretation Comme nts GONORRHEA, NAAT (test code = 85116) NEGATIVE GC, AMPLIFIED, [id number] 00:00:00* Test Item Value Reference Range Interpretation Comme nts GONORRHEA, NAAT (test code = 53857) NEGATIVE HCG, [id number] 00:00:00* Test Item Value Reference Range Interpretation Comme nts HCG, QUANTITATIVE (test code = 2506) <5 MIU/ML HCG, [id number] 00:00:00* Test Item Value Reference Range Interpretation Comme nts HCG, QUANTITATIVE (test code = 2506) <5 MIU/ML HCG, [id number] 00:00:00* Test Item Value Reference Range Interpretation Comme nts HCG, QUANTITATIVE (test code = 2506) <5 MIU/ML HIV AB/AG COMBO RFLX [id number] 00:00:00* Test Item Value Reference Range Interpretation Comme nts HIV 1/2 4TH GEN, RFLX CONF ( test code = 3514) NON-REACTIVE ACUTE HEPATITIS [id number] 00:00:00* Test Item Value Reference Range Interpretation Comme nts HEPATITIS A IgM (test code = 13956) NON-REACTIVE HEPATITIS B CORE IgM (test c ode = 4644) NON-REACTIVE HEPATITIS B SURF AG (test co de = 2739) NON-REACTIVE HEPATITIS C ANTIBODY (test c ode = 4675) NON-REACTIVE INTERPRETATION HEPATITIS A: (test code = 2552) (NOTE) INTERPRETATION HEPATITIS B: (test code = 94271) (NOTE) INTERPRETATION HEPATITIS C: (test code = 16978) (NOTE) CHLAMYDIA, AMPLIFIED, [id number] 00:00:00* Test Item Value Reference Range Interpretation Comme nts CHLAMYDIA, NAAT (test code = 42307) TEST NOT PERFORMED GC, AMPLIFIED, [id number] 00:00:00* Test Item Value Reference Range Interpretation Comme nts GONORRHEA, NAAT (test code = 89950) TEST NOT PERFORMED HIV AB/AG COMBO RFLX [id number] 00:00:00* Test Item Value Reference Range Interpretation Comme nts HIV 1/2 4TH GEN, RFLX CONF ( test code = 3514) NON-REACTIVE HIV AB/AG COMBO RFLX [id number] 00:00:00* Test Item Value Reference Range Interpretation Comme nts HIV 1/2 4TH GEN, RFLX CONF ( test code = 3514) NON-REACTIVE ACUTE HEPATITIS [id number] 00:00:00* Test Item Value Reference Range Interpretation Comme nts HEPATITIS A IgM (test code = 77121) NON-REACTIVE HEPATITIS B CORE IgM (test c ode = 4644) NON-REACTIVE HEPATITIS B SURF AG (test co de = 2739) NON-REACTIVE HEPATITIS C ANTIBODY (test c ode = 4675) NON-REACTIVE INTERPRETATION HEPATITIS A: (test code = 2552) (NOTE) INTERPRETATION HEPATITIS B: (test code = 81155) (NOTE) INTERPRETATION HEPATITIS C: (test code = 81809) (NOTE) ACUTE HEPATITIS [id number] 00:00:00* Test Item Value Reference Range Interpretation Comme nts HEPATITIS A IgM (test code = 72307) NON-REACTIVE HEPATITIS B CORE IgM (test c ode = 4644) NON-REACTIVE HEPATITIS B SURF AG (test co de = 2739) NON-REACTIVE HEPATITIS C ANTIBODY (test c ode = 4675) NON-REACTIVE INTERPRETATION HEPATITIS A: (test code = 2552) (NOTE) INTERPRETATION HEPATITIS B: (test code = 86112) (NOTE) INTERPRETATION HEPATITIS C: (test code = 00221) (NOTE) CHLAMYDIA, AMPLIFIED, [id number] 00:00:00* Test Item Value Reference Range Interpretation Comme nts CHLAMYDIA, NAAT (test code = 49439) TEST NOT PERFORMED GC, AMPLIFIED, [id number] 00:00:00* Test Item Value Reference Range Interpretation Comme nts GONORRHEA, NAAT (test code = 44027) TEST NOT PERFORMED CHLAMYDIA, AMPLIFIED, [id number] 00:00:00* Test Item Value Reference Range Interpretation Comme nts CHLAMYDIA, NAAT (test code = 75328) TEST NOT PERFORMED GC, AMPLIFIED, [id number] 00:00:00* Test Item Value Reference Range Interpretation Comme nts GONORRHEA, NAAT (test code = 68721) TEST NOT PERFORMED [id number] 00:00:00* Test Item Value Reference Range Interpretation Comme nts RPR RESULT (test code = 3501) NON-REACTIVE RPR TITER (test code = 3500) NOT INDIC. TITER [id number] 00:00:00* Test Item Value Reference Range Interpretation Comme nts RPR RESULT (test code = 3501) NON-REACTIVE RPR TITER (test code = 3500) NOT INDIC. TITER [id number] 00:00:00* Test Item Value Reference Range Interpretation Comme nts RPR RESULT (test code = 3501) NON-REACTIVE RPR TITER (test code = 3500) NOT INDIC. TITER CULTURE, [id number] 00:00:00* Test Item Value Reference Range Interpretation Comme nts CULTURE, URINE (test code = 49358) SPECIMEN NUMBER: [id number] CULTURE, [id number] 00:00:00* Test Item Value Reference Range Interpretation Comme nts CULTURE, URINE (test code = 61118) SPECIMEN NUMBER: [id number] CULTURE, [id number] 00:00:00* Test Item Value Reference Range Interpretation Comme nts CULTURE, URINE (test code = 51939) SPECIMEN NUMBER: [id number] CHLAMYDIA, AMPLIFIED, [id number] 00:00:00* Test Item Value Reference Range Interpretation Comme nts CHLAMYDIA, NAAT (test code = 43058) NEGATIVE GC, AMPLIFIED, [id number] 00:00:00* Test Item Value Reference Range Interpretation Comme nts GONORRHEA, NAAT (test code = 51626) NEGATIVE HIV AB/AG COMBO RFLX [id number] 00:00:00* Test Item Value Reference Range Interpretation Comme nts HIV 1/2 4TH GEN, RFLX CONF ( test code = 3514) NON-REACTIVE [id number] 00:00:00* Test Item Value Reference Range Interpretation Comme nts RPR RESULT (test code = 3501) NON-REACTIVE RPR TITER (test code = 3500) NOT INDIC. TITER CHLAMYDIA, AMPLIFIED, [id number] 00:00:00* Test Item Value Reference Range Interpretation Comme nts CHLAMYDIA, NAAT (test code = 45421) NEGATIVE CHLAMYDIA, AMPLIFIED, [id number] 00:00:00* Test Item Value Reference Range Interpretation Comme nts CHLAMYDIA, NAAT (test code = 94231) NEGATIVE GC, AMPLIFIED, [id number] 00:00:00* Test Item Value Reference Range Interpretation Comme nts GONORRHEA, NAAT (test code = 53487) NEGATIVE HIV AB/AG COMBO RFLX [id number] 00:00:00* Test Item Value Reference Range Interpretation Comme nts HIV 1/2 4TH GEN, RFLX CONF ( test code = 3514) NON-REACTIVE [id number] 00:00:00* Test Item Value Reference Range Interpretation Comme nts RPR RESULT (test code = 3501) NON-REACTIVE RPR TITER (test code = 3500) NOT INDIC. TITER GC, AMPLIFIED, [id number] 00:00:00* Test Item Value Reference Range Interpretation Comme nts GONORRHEA, NAAT (test code = 74620) NEGATIVE HIV AB/AG COMBO RFLX [id number] 00:00:00* Test Item Value Reference Range Interpretation Comme nts HIV 1/2 4TH GEN, RFLX CONF ( test code = 3514) NON-REACTIVE [id number] 00:00:00* Test Item Value Reference Range Interpretation Comme nts RPR RESULT (test code = 3501) NON-REACTIVE RPR TITER (test code = 3500) NOT INDIC. TITER VAGINAL PATHOGENS DNA [id number] 00:00:00* Test Item Value Reference Range Interpretation Comme nts BEATA SPECIES (test code = 21351) NEGATIVE G. VAGINALIS (test code = 79138) NEGATIVE T. VAGINALIS (test code = 87446) NEGATIVE VAGINAL PATHOGENS DNA [id number] 00:00:00* Test Item Value Reference Range Interpretation Comme nts BEATA SPECIES (test code = 99110) NEGATIVE G. VAGINALIS (test code = 42611) NEGATIVE T. VAGINALIS (test code = 98331) NEGATIVE VAGINAL PATHOGENS DNA [id number] 00:00:00* Test Item Value Reference Range Interpretation Comme nts BEATA SPECIES (test code = 05981) NEGATIVE G. VAGINALIS (test code = 91261) NEGATIVE T. VAGINALIS (test code = 31586) NEGATIVE COMPREHENSIVE METABOLIC [id number] 00:00:00* Test Item Value Reference Range Interpretation Comme nts GLUCOSE (test code = 2217) 94 MG/DL BUN (test code = 2208) 11 MG/DL CREATININE (test code = 2214) 0.63 MG/DL eGFR AMER. (test cod e = 86879) 140 ML/MIN/1.73 eGFR NON- AMER. (test code = 73472) 120 ML/MIN/1.73 CALC BUN/CREAT (test code = [...] code = 2219) 30 U/L COMPREHENSIVE METABOLIC [id number] 00:00:00* Test Item Value Reference Range Interpretation Comme nts GLUCOSE (test code = 2217) 94 MG/DL BUN (test code = 2208) 11 MG/DL CREATININE (test code = 2214) 0.63 MG/DL eGFR AMER. (test cod e = 70711) 140 ML/MIN/1.73 eGFR NON- AMER. (test code = 27187) 120 ML/MIN/1.73 CALC BUN/CREAT (test code = [...] code = 2219) 30 U/L COMPREHENSIVE METABOLIC [id number] 00:00:00* Test Item Value Reference Range Interpretation Comme nts GLUCOSE (test code = 2217) 94 MG/DL BUN (test code = 2208) 11 MG/DL CREATININE (test code = 2214) 0.63 MG/DL eGFR AMER. (test cod e = 02900) 140 ML/MIN/1.73 eGFR NON- AMER. (test code = 98235) 120 ML/MIN/1.73 CALC BUN/CREAT (test code = [...] = 2219) 30 U/L PAP TEST, THINPREP, [id number] 00:00:00* Test Item Value Reference Range Interpretation Comme nts SOURCE: (test code = 8001) Cervical/Endocervical SLIDES: (test code = 8011) 1 LMP: (test code = 8021) 2020-09-03 SPECIMEN ADEQUACY: (test code = 34203) (NOTE) INTERPRETATION: (test code = 49912) NILM/NO EPITH. ABNORMALITY;SEE BELOW OTHER COMMENTS: (test code = 8081) (NOTE) COUNTY LIBRARY DIRECTOR: (test code = 8101) OLIVER Gomez(ASCP)IAC LOCATION: (test code = 72884) (NOTE) CPT: (test code = 8140) (NOTE) PAP TEST, THINPREP, [id number] 00:00:00* Test Item Value Reference Range Interpretation Comme nts SOURCE: (test code = 8001) Cervical/Endocervical SLIDES: (test code = 8011) 1 LMP: (test code = 8021) 2020-09-03 SPECIMEN ADEQUACY: (test code = 67638) (NOTE) INTERPRETATION: (test code = 02446) NILM/NO EPITH. ABNORMALITY;SEE BELOW OTHER COMMENTS: (test code = 8081) (NOTE) COUNTY LIBRARY DIRECTOR: (test code = 8101) OLIVER Gomez(ASCP)IAC LOCATION: (test code = 37412) (NOTE) CPT: (test code = 8140) (NOTE) PAP TEST, THINPREP, [id number] 00:00:00* Test Item Value Reference Range Interpretation Comme nts SOURCE: (test code = 8001) Cervical/Endocervical SLIDES: (test code = 8011) 1 LMP: (test code = 8021) 2020-09-03 SPECIMEN ADEQUACY: (test code = 08256) (NOTE) INTERPRETATION: (test code = 79945) NILM/NO EPITH. ABNORMALITY;SEE BELOW OTHER COMMENTS: (test code = 8081) (NOTE) COUNTY LIBRARY DIRECTOR: (test code = 8101) OLIVER Gomez(ASCP)IAC LOCATION: (test code = 62729) (NOTE) CPT: (test code = 8140) (NOTE) HIV AB/AG COMBO RFLX [id number] 00:00:00* Test Item Value Reference Range Interpretation Comme nts HIV 1/2 4TH GEN, RFLX CONF ( test code = 3514) NON-REACTIVE GC AND CHLAMYDIA AMPLIFIED, [id number] 00:00:00* Test Item Value Reference Range Interpretation Comme nts GONORRHEA, TMA (test code = 57707) NEGATIVE CHLAMYDIA, TMA (test code = 12531) NEGATIVE [id number] 00:00:00* Test Item Value Reference Range Interpretation Comme nts RPR RESULT (test code = 3501) NON-REACTIVE RPR TITER (test code = 3500) NOT INDIC. TITER HIV AB/AG COMBO RFLX [id number] 00:00:00* Test Item Value Reference Range Interpretation Comme nts HIV 1/2 4TH GEN, RFLX CONF ( test code = 3514) NON-REACTIVE [id number] 00:00:00* Test Item Value Reference Range Interpretation Comme nts TESTOSTERONE (test code = 2830) 43 NG/DL HPV HIGH RISK WITH GENOTYPE, [id number] 00:00:00* Test Item Value Reference Range Interpretation Comme nts HPV HIGH RISK INTERP (test c ode = 03414) NEGATIVE HPV 16 (test code = 24724) NEGATIVE HPV 18 (test code = 57928) NEGATIVE HPV, HR, OTHER GENOTYPES (te st code = 79655) NEGATIVE GC AND CHLAMYDIA AMPLIFIED, [id number] 00:00:00* Test Item Value Reference Range Interpretation Comme nts GONORRHEA, TMA (test code = 17454) NEGATIVE CHLAMYDIA, TMA (test code = 28174) NEGATIVE FSH + LH [id number] 00:00:00* Test Item Value Reference Range Interpretation Comme nts FOLLICLE STIM HORMONE (test code = 2700) 7.0 IU/L LUTEINIZING HORMONE (test co de = 2776) 12.1 IU/L [id number] 00:00:00* Test Item Value Reference Range Interpretation Comme nts PROLACTIN (test code = 2800) 12.5 NG/ML [id number] 00:00:00* Test Item Value Reference Range Interpretation Comme nts ESTRADIOL (test code = 7375) 39.3 PG/ML HIV AB/AG COMBO RFLX [id number] 00:00:00* Test Item Value Reference Range Interpretation Comme nts HIV 1/2 4TH GEN, RFLX CONF ( test code = 3514) NON-REACTIVE [id number] 00:00:00* Test Item Value Reference Range Interpretation Comme nts RPR RESULT (test code = 3501) NON-REACTIVE RPR TITER (test code = 3500) NOT INDIC. TITER GC AND CHLAMYDIA AMPLIFIED, [id number] 00:00:00* Test Item Value Reference Range Interpretation Comme nts GONORRHEA, TMA (test code = 58389) NEGATIVE CHLAMYDIA, TMA (test code = 90037) NEGATIVE [id number] 00:00:00* Test Item Value Reference Range Interpretation Comme nts RPR RESULT (test code = 3501) NON-REACTIVE RPR TITER (test code = 3500) NOT INDIC. TITER HPV HIGH RISK WITH GENOTYPE, [id number] 00:00:00* Test Item Value Reference Range Interpretation Comme nts HPV HIGH RISK INTERP (test c ode = 10307) NEGATIVE HPV 16 (test code = 56348) NEGATIVE HPV 18 (test code = 58388) NEGATIVE HPV, HR, OTHER GENOTYPES (te st code = 42873) NEGATIVE [id number] 00:00:00* Test Item Value Reference Range Interpretation Comme nts TESTOSTERONE (test code = 2830) 43 NG/DL FSH + LH [id number] 00:00:00* Test Item Value Reference Range Interpretation Comme nts FOLLICLE STIM HORMONE (test code = 2700) 7.0 IU/L LUTEINIZING HORMONE (test co de = 2776) 12.1 IU/L [id number] 00:00:00* Test Item Value Reference Range Interpretation Comme nts PROLACTIN (test code = 2800) 12.5 NG/ML [id number] 00:00:00* Test Item Value Reference Range Interpretation Comme nts ESTRADIOL (test code = 2505) 39.3 PG/ML [id number] 00:00:00* Test Item Value Reference Range Interpretation Comme nts TESTOSTERONE (test code = 2830) 43 NG/DL HPV HIGH RISK WITH GENOTYPE, [id number] 00:00:00* Test Item Value Reference Range Interpretation Comme nts HPV HIGH RISK INTERP (test c ode = 85699) NEGATIVE HPV 16 (test code = 82502) NEGATIVE HPV 18 (test code = 59486) NEGATIVE HPV, HR, OTHER GENOTYPES (te st code = 04796) NEGATIVE FSH + LH [id number] 00:00:00* Test Item Value Reference Range Interpretation Comme nts FOLLICLE STIM HORMONE (test code = 2700) 7.0 IU/L LUTEINIZING HORMONE (test co de = 2776) 12.1 IU/L [id number] 00:00:00* Test Item Value Reference Range Interpretation Comme nts PROLACTIN (test code = 2800) 12.5 NG/ML [id number] 00:00:00* Test Item Value Reference Range Interpretation Comme nts ESTRADIOL (test code = 2505) 39.3 PG/ML VAGINAL PATHOGENS DNA [id number] 00:00:00* Test Item Value Reference Range Interpretation Comme nts BEATA SPECIES (test code = ) NEGATIVE G. VAGINALIS (test code = ) NEGATIVE T. VAGINALIS (test code = ) POSITIVE VAGINAL PATHOGENS DNA [id number] 00:00:00* Test Item Value Reference Range Interpretation Comme nts BEATA SPECIES (test code = ) NEGATIVE G. VAGINALIS (test code = 39833) NEGATIVE T. VAGINALIS (test code = 13271) POSITIVE VAGINAL PATHOGENS DNA [id number] 00:00:00* Test Item Value Reference Range Interpretation Comme nts BEATA SPECIES (test code = 83074) NEGATIVE G. VAGINALIS (test code = 94967) NEGATIVE T. VAGINALIS (test code = 67878) POSITIVE History and Physical Notes Date/Time Note Provider Source 2024-06-15 14:15:00 New Medication Vitamin D deficiency - Low level Vit D 17 - VITAMIN D, 25-OH; Future - ergocalciferol, vitamin d2, 1,250 mcg (50,000 unit) capsule; Take 1 capsule by mouth weekly. Dispense: 26 capsule; Refill: 1 - calcium carbonate 500 mg calcium (1,250 mg) tablet; Take 1 tablet by mouth in the morning. Dispense: 90 tablet; Refill: 3 - Vitamin D, 25-OH; Standing [facility] 2023-03-24 07:55:58 Formatting of this n ote [...] EXTRACTION N/A 06/08/2017 Surgeon: Suresh Bosch; Location: [facility] Past Medical History: Diagnosis Date Asthma Heart [...] found for: "RUBG" No results found for: "BOXH4AC" No results found for: "CGBS" HGB Date [...] details Mendoza Washburn MD 03/24/2023 8:26 AM [facility] - Health Procedure Notes Date/Time Note Provider Source 2023-03-24 09:46:31 Associated Order(s): Central Neuraxial Block Central Neuraxial Block Date/Time: 03/24/2023 8:45 AM Performed by: Antelmo Irwin CRNA Authorized by: Stalin Blake MD Patient Location: OB End Time: 03/24/2023 9:27 AM Reason for Block: OB request, Patient request, Labor analgesia, Surgical anesthesia and Post-op pain management Staff: Anesthesiologist: Stalin Blake MD Resident/HYDROGEN POWER PLANT ENGINEER: Antelmo Irwin CRNA Performed by: anesthesiologist Preanesthetic [...] and catheter Guidance with: landmark technique} Epidural/Spinal [place] and/or Catheter: Epidural/Spinal Kit: Alexander Needle Type: [...] tolerated procedure well with no complications Notes: HYDROGEN POWER PLANT ENGINEER attempted twice unsuccessful; MDA x 1 attempt successful Smooth and atraumatic, (+) Local, (+) STF NACR-NURSE TRUCK TECHNICIAN,CERTIFIED REGISTERED NURSE TRUCK TECHNICIAN [facility] - Health Progress Notes Date/Time Note Provider Source 2023-03-15 [...] -- labor warnings reviewed --All questions answered [facility]
--- NOTE | 2024-08-02 19:49 | EDPHYS ---
Physician Documentation [facility] Name: Carlyn Rodas Age: 33 yrs Sex: Female : 1990 Arrival Date: 08/02/2024 Time: 19:34 Bed IW1 Private MD: ED Physician Jameel Flaherty HPI: 08/02 19:53 This 33 yrs old Female presents to ER via Ambulatory with complaints of insect ec2 bite on left ear. 19:53 Patient arrives today for evaluation of left ear redness and swelling. Patient reports ec2 that she had noted some swelling to the left ear, had apply topical medication as well as oral Benadryl with minimal improvement in symptoms. No fevers or chills, no nausea or vomiting. Has been tolerating p.o. without issue otherwise.. Historical: - Allergies: 19:46 No Known Allergies; tm6 - PMHx: 19:46 adhd; Asthma; tm6 - PSHx: 19:46 None; tm6 - Immunization history:: Flu vaccine is not up to date. - Infectious Disease History:: Denies. - Social history:: Smoking status: Patient denies any tobacco usage or history of. ROS: 19:53 Constitutional: as per hpi ec2 Exam: 19:53 Constitutional: GEN: NAD Head: atraumatic Eyes: EOMI Ears: External ears are ec2 normal. CV: regular rate LUNGS: no respiratory distress ABD: non-distended SKIN: Left outer ear with erythema, warmth, no fluctuance appreciated. No evidence of trauma or injury. MSK: no evidence of trauma Vital Signs: 19:45 BP 121 / 73; Pulse 98; Resp 17; Temp 97.4(TE); Pulse Ox 100% on R/A; tm6 19:46 Weight 87.09 kg; Height 4 ft. 11 in. ; Pain 0/10; tm6 19:46 Body Mass Index 38.78 (87.09 kg, 149.86 cm) tm6 19:46 Pain Scale: Adult tm6 MDM: 19:41 Medical Screening Exam initiated ec2 19:53 Data reviewed:. Data reviewed: vital signs, nurses notes. ED course: Patient arrives ec2 today for evaluation of left ear swelling and redness. Examination shows cellulitis of the left ear. Will treat for cellulitis and have the patient follow-up with PCP. Additionally considered other processes such as mastoiditis, otitis media. Patient otherwise no systemic signs and symptoms, will forego obtaining lab work such as CBC or BMP. Patient discharged home. Return precautions given.. Administered Medications: 20:17 Drug: Cephalexin PO 500 mg PO once Route: PO; vc1 20:17 Follow up: Response: Medication administered at discharge. vc1 Disposition Summary: 08/02/24 19:49 Discharge Ordered Notes: Location: Home ec2 Condition: Stable ec2 Diagnosis - Cellulitis of left external ear ec2 Followup: ec2 - With: Private Physician - When: - Reason: Re-evaluation by your physician Discharge Instructions: - Discharge Summary Sheet ec2 - Cellulitis, Adult ec2 Forms: - Medication Reconciliation Form ec2 - Antibiotic Education ec2 - Prescription Opioid Use ec2 - Patient Portal Instructions ec2 - Leadership Thank You Letter ec2 Prescriptions: - Cephalexin 500 mg Oral capsule - take 1 capsule ORAL route every 6 hours for 7 days; 28 capsule; Refills: 0, ec2 Product Selection Permitted Signatures: Sherly Justice RN RN vc1 Jameel Flaherty MD MD ec2 Indu Cruz RN RN tm6
--- NOTE | 2024-08-02 19:49 | ER ---
Nurse's Notes [facility] Name: Carlyn Rodas Age: 33 yrs Sex: Female : 1990 Arrival Date: 08/02/2024 Time: 19:34 Bed IW1 Private MD: Diagnosis: Cellulitis of left external ear Presentation: 08/02 19:45 Chief complaint: Patient states: swelling to left ear, tried topical meds and benadryl, tm6 has not gotten better. Ebola Screen: Patient negative for fever greater than or equal to 101.5 degrees Fahrenheit, and additional compatible Ebola Virus Disease symptoms Patient denies exposure to infectious person. Patient denies travel to an Ebola-affected area in the 21 days before illness onset. No symptoms or risks identified at this time. Initial Sepsis Screen: Does the patient meet any 2 criteria? No. Patient's initial sepsis screen is negative. Does the patient have a suspected source of infection? No. Patient's initial sepsis screen is negative. Risk Assessment: Do you want to hurt yourself or someone else? Patient reports no desire to harm self or others. 19:45 Method Of Arrival: Ambulatory tm6 19:45 Acuity: FERNANDO 4 tm6 19:47 Coronavirus screen: Client denies travel out of the [place] in the last 14 days. tm6 Triage Assessment: 19:47 General: Appears in no apparent distress. Behavior is calm, cooperative. Pain: Denies tm6 pain. EENT: Reports swelling to left ear. Neuro: Level of Consciousness is awake, alert, obeys commands, Oriented to person, place, time, situation. Cardiovascular: Patient's skin is warm and dry. Respiratory: Airway is patent Respiratory effort is even, unlabored, Respiratory pattern is regular, symmetrical. GI: No signs and/or symptoms were reported involving the gastrointestinal system. Abdomen is round non-distended. : No signs and/or symptoms were reported regarding the genitourinary system. Derm: No signs and/or symptoms reported regarding the dermatologic system. Musculoskeletal: No signs and/or symptoms reported regarding the musculoskeletal system. Historical: - Allergies: 19:46 No Known Allergies; tm6 - PMHx: 19:46 adhd; Asthma; tm6 - PSHx: 19:46 None; tm6 - Immunization history:: Flu vaccine is not up to date. - Infectious Disease History:: Denies. - Social history:: Smoking status: Patient denies any tobacco usage or history of. Screenin:18 [facility] ED Fall Risk Assessment (Adult) History of falling in the last 3 months, vc1 including since admission No falls in past 3 months (0 pts) Confusion or Disorientation No (0 pts) Intoxicated or Sedated No (0 pts) Impaired Gait No (0 pts) Mobility Assist Device Used No (0 pt) Altered Elimination No (0 pt) Score/Fall Risk Level 0 - 2 = Low Risk Oriented to surroundings, Maintained a safe environment, Educated pt \T\ family on fall prevention, incl call for assistance when getting out of bed. Abuse screen: Denies threats or abuse. Nutritional screening: No deficits noted. Tuberculosis screening: No symptoms or risk factors identified. Vital Signs: 19:45 BP 121 / 73; Pulse 98; Resp 17; Temp 97.4(TE); Pulse Ox 100% on R/A; tm6 19:46 Weight 87.09 kg; Height 4 ft. 11 in. ; Pain 0/10; tm6 19:46 Body Mass Index 38.78 (87.09 kg, 149.86 cm) tm6 19:46 Pain Scale: Adult tm6 ED Course: 19:38 Patient arrived in ED. ra3 19:38 Schuyler Torres PA is PHCP. cp 19:38 Jameel Flaherty MD is Attending Physician. cp 19:46 Triage completed. tm6 19:47 Arm band placed on right wrist. tm6 20:18 No provider procedures requiring assistance completed. Patient did not have IV access vc1 during this emergency room visit. 20:19 treated from triage. Provided Education on: complete abx. vc1 Administered Medications: 20:17 Drug: Cephalexin PO 500 mg PO once Route: PO; vc1 20:17 Follow up: Response: Medication administered at discharge. vc1 Medication: 20:19 VIS not applicable for this client. vc1 Outcome: 19:49 Discharge ordered by . ec2 20:18 Discharged to home ambulatory, with family, vc1 20:18 Condition: good 20:18 Discharge instructions given to patient, Instructed on discharge instructions, follow up and referral plans. Demonstrated understanding of instructions, follow-up care, medications, Prescriptions given X 1, 20:23 Patient left the ED. vc1 Signatures: Schuyler Torres PA PA cp Calcote, Vanessa RN RN vc1 Jameel Flaherty MD MD ec2 Indu Cruz RN RN tm6 Glenny Akers 3
[2024-08-02] MEDS ORDERED: CEPHALEXIN 250 MG CAP ONE (20:01)
[2024-08-02 20:29] VITALS: BP 121/73; TEMP 97.4; O2SAT 100
== END 2024-08-02 20:23 | disposition home or self-care (01) ==
LOC: ER 19:34
DX: H60.12 Cellulitis of left external ear (principal); S00.462A Insect bite (nonvenomous) of left ear, initial encounter
CPT/HCPCS: 99283

== ENCOUNTER 2025-05-28 22:33 | Emergency (ER) | payer OTHER ==
[2025-05-28] MEDS ORDERED: IBUPROFEN 400 MG TAB ONE (22:53)
--- NOTE | 2025-05-29 00:07 | EDPHYS ---
Physician Documentation [facility] Name: Carlyn Rodas Age: 34 yrs Sex: Female : 1990 Arrival Date: 05/28/2025 Time: 22:33 Bed DX5 Private MD: ED Physician Librado Farr HPI: 05/28 23:02 This 34 yrs old Female presents to ER via Ambulatory with complaints of Hand sb4 Pain. 23:02 Patient states that she noticed a "bump "on the dorsum of her left hand this evening. sb4 She denies any injury. States that it does hurt some. Is not sure if she has been bit by something but it is not red or warm.. 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 - Infectious Disease History:: Denies. - Social history:: Smoking status: Patient denies any tobacco usage or history of. ROS: 23:02 Constitutional: Negative for fever, chills, and weight loss, sb4 23:02 Skin: Positive for per HPI, 23:02 All other systems are negative, Exam: 23:02 Constitutional: This is a well developed, well nourished patient who is awake, alert, sb4 and in no acute distress. Head/Face: Normocephalic, atraumatic. Eyes: Extra-ocular motions intact. Periorbital areas with no swelling, redness, or edema. ENT: Mucous membranes moist. Respiratory: No increased work of breathing, no retractions or nasal flaring. Skin: Warm, dry with normal turgor. Normal color with no rashes, no lesions, and no evidence of cellulitis. 23:02 Musculoskeletal/extremity: Exam is negative for bony tenderness, decreased range of motion, deformity, ecchymosis, erythema, Mild soft tissue swelling dorsum of left hand. Vital Signs: 22:50 BP 129 / 64; Pulse 88; Resp 18; Temp 98.2; Pulse Ox 100% ; Weight 88.9 kg; Height 4 ft. cp4 11 in. ; Pain 6/10; 05/29 00:36 BP 122 / 66; Pulse 83; Resp 16; Pulse Ox 100% on R/A; al5 05/28 22:50 Body Mass Index 39.59 (88.90 kg, 149.86 cm) cp4 05/28 22:50 Pain Scale: Adult cp4 MDM: 05/28 22:39 Medical Screening Exam initiated sb4 23:41 Independent interpretation of the following test(s) in the Emergency Department X-Ray: sb4 My interpretation is Left hand x-ray images -no acute fracture or dislocation. 05/29 00:05 Data reviewed: vital signs, nurses notes, radiologic studies, and as a result, I will sb4 discharge patient. Counseling: I had a detailed discussion with the patient and/or guardian regarding the historical points, exam findings, and any diagnostic results supporting the discharge/admit diagnosis, radiology results, the need for outpatient follow up, for definitive care, to return to the emergency department if symptoms worsen or persist or if there are any questions or concerns that arise at home. 05/28 22:52 Order name: Hand Left 3 View XRAY sb4 05/28 22:52 Order name: Ice pack; Complete Time: 22:53 sb4 05/29 00:05 Order name: Tigre Wrap; Complete Time: 00:33 sb4 Administered Medications: 05/28 23:04 Drug: Ibuprofen PO 800 mg PO once Route: PO; cp4 05/29 00:33 Follow up: Response: No adverse reaction; Marked relief of symptoms vc1 Disposition: 05:41 Co-signature as Attending Physician, Librado Farr MD I agree with the assessment sp4 and plan of care. I reviewed the patient's care provided by the Advanced Practice Provider and agree with the diagnosis and treatment plan. Disposition Summary: 05/29/25 00:06 Discharge Ordered Notes: Location: Home sb4 Problem: new sb4 Symptoms: have improved sb4 Condition: Stable sb4 Diagnosis - Left hand swelling sb4 Followup: sb4 - With: Private Physician - When: As needed - Reason: Recheck today's complaints, Re-evaluation by your physician Discharge Instructions: - Discharge Summary Sheet sb4 - Hand Pain sb4 Forms: - Patient Portal Instructions sb4 - Leadership Thank You Letter sb4 Prescriptions: - Ibuprofen 800 mg Oral Tablet - take 1 tablet ORAL route every 8 hours As needed take with food; 30 tablet; sb4 Refills: 0, Product Selection Permitted Signatures: Dispatcher [employer] Rena Eaton, ALONSO GUPTA sb4 Librado Farr MD MD sp4 Abbey Crain cp4 Sherly Justice RN vc1
--- NOTE | 2025-05-29 00:07 | ER ---
Nurse's Notes [facility] Name: Carlyn Rodas Age: 34 yrs Sex: Female : 1990 Arrival Date: 05/28/2025 Time: 22:33 Bed DX5 Private MD: Diagnosis: Left hand swelling Presentation: 05/28 22:50 Chief complaint: Patient states: right hand swelling. States no known injury. cp4 Coronavirus screen: Client denies travel out of the [place] in the last 14 days. At this time, the client does not indicate any symptoms associated with coronavirus-19. Ebola Screen: Patient negative for fever greater than or equal to 101.5 degrees Fahrenheit, and additional compatible Ebola Virus Disease symptoms Patient denies exposure to infectious person. Patient denies travel to an Ebola-affected area in the 21 days before illness onset. No symptoms or risks identified at this time. Initial Sepsis Screen: Does the patient meet any 2 criteria? No. Patient's initial sepsis screen is negative. Does the patient have a suspected source of infection? No. Patient's initial sepsis screen is negative. Risk Assessment: Do you want to hurt yourself or someone else? Patient reports no desire to harm self or others. Onset of symptoms was May 28, 2025. 22:50 Method Of Arrival: Ambulatory cp4 22:50 Acuity: FERNANDO 4 cp4 Triage Assessment: 22:52 General: Appears in no apparent distress. comfortable, Behavior is calm, cooperative, cp4 appropriate for age. Pain: Complains of pain in left hand Pain does not radiate. Pain currently is 6 out of 10 on a pain scale. 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 - Infectious Disease History:: Denies. - Social history:: Smoking status: Patient denies any tobacco usage or history of. Screenin/08 00:34 [facility] ED Fall Risk Assessment (Adult) History of falling in the last 3 months, al5 including since admission No falls in past 3 months (0 pts) Confusion or Disorientation No (0 pts) Intoxicated or Sedated No (0 pts) Impaired Gait No (0 pts) Mobility Assist Device Used No (0 pt) Altered Elimination No (0 pt) Score/Fall Risk Level 0 - 2 = Low Risk Oriented to surroundings, Maintained a safe environment, Hourly rounding (assess needs \T\ fall precautionary measures) done. Abuse screen: Denies threats or abuse. Denies injuries from another. Nutritional screening: No deficits noted. Tuberculosis screening: No symptoms or risk factors identified. Assessment: 00:36 General: Appears in no apparent distress. comfortable. Pain: Complains of pain in left al5 hand. Neuro: Level of Consciousness is awake, alert, obeys commands, Oriented to person, place, time, situation. Cardiovascular: Capillary refill < 3 seconds Patient's skin is warm and dry. Respiratory: Airway is patent Respiratory effort is even, unlabored, Respiratory pattern is regular, symmetrical. GI: No signs and/or symptoms were reported involving the gastrointestinal system. : No signs and/or symptoms were reported regarding the genitourinary system. EENT: No signs and/or symptoms were reported regarding the EENT system. Derm: Skin is intact, is healthy with good turgor, Skin is pink, warm \T\ dry. normal. Musculoskeletal: Circulation, motion, and sensation intact. Range of motion: intact in all extremities, Reports pain in left hand. Vital Signs: 05/28 22:50 BP 129 / 64; Pulse 88; Resp 18; Temp 98.2; Pulse Ox 100% ; Weight 88.9 kg; Height 4 ft. cp4 11 in. ; Pain 6/10; 05/29 00:36 BP 122 / 66; Pulse 83; Resp 16; Pulse Ox 100% on R/A; al5 05/28 22:50 Body Mass Index 39.59 (88.90 kg, 149.86 cm) cp4 05/28 22:50 Pain Scale: Adult cp4 ED Course: 05/28 22:37 Patient arrived in ED. mr 22:38 Rena Todd PA-C is PHCP. sb4 22:38 Derrick Chester MD is Attending Physician. sb4 22:52 Triage completed. cp4 22:52 Arm band placed on left wrist. Patient placed in waiting room. cp4 23:24 Librado Farr MD is Attending Physician. sb4 23:56 Hand Left 3 View XRAY In Process Unspecified. EDMS 05/29 00:33 Enid Coronado, RN is Primary Nurse. al5 00:34 Patient has correct armband on for positive identification. Provided Education on: al5 discharge follow up, medications. 00:34 No provider procedures requiring assistance completed. Patient did not have IV access al5 during this emergency room visit. Tigre wrap to left hand. Administered Medications: 05/28 23:04 Drug: Ibuprofen PO 800 mg PO once Route: PO; cp4 05/29 00:33 Follow up: Response: No adverse reaction; Marked relief of symptoms vc1 Medication: 00:38 VIS not applicable for this client. al5 Outcome: 00:06 Discharge ordered by MD. sb4 00:38 Discharged to home ambulatory, al5 00:38 Condition: good 00:38 Discharge instructions given to patient, Instructed on discharge instructions, follow up and referral plans. medication usage, Demonstrated understanding of instructions, follow-up care, medications, Prescriptions given X 1, 00:38 Patient left the ED. al5 Signatures: Dispatcher [employer] EDWA Frida Curtis, Reg Reg mr Sherly Justice, RN RN vc1 Rena Todd PAVinicius PAAlbaC [id number] Abbey Crain cp4 Enid Coronado, HERMILO RN al5
--- NOTE | 2025-05-29 05:53 | RAD REPORT ---
EXAM: XR Left Hand Complete, 3 or More Views CLINICAL HISTORY: The patient is 34 years old and is Female; Pain;Swelling TECHNIQUE: Frontal, lateral and oblique views of the left hand. COMPARISON: No relevant prior studies available. FINDINGS: BONES/JOINTS: Unremarkable. No acute fracture. No dislocation. SOFT TISSUES: Unremarkable. No radiopaque foreign body. IMPRESSION: Normal left hand radiographs. Electronically signed by: Bryanna West MD 05/29/2025 01:09 AM CDT RP Due to temporary technical issues with the PACS/[employer] reporting system, reports are being reena d by the in-house radiologist without review as a courtesy to ensure prompt reporting the interpreting radiologist is fully responsible for the content of the report. Transcribed Date/Time: 05/29/2025 5:52 AM
== END 2025-05-29 00:38 | disposition home or self-care (01) ==
LOC: ER 22:33
DX: R22.32 Localized swelling, mass and lump, left upper limb (principal)
CPT/HCPCS: 99283

== ENCOUNTER 2025-06-01 19:17 | Emergency (ER) | payer OTHER ==
[2025-06-01] MEDS ORDERED: NA CHLORIDE 0.9% 1,000 ML ONE (19:54)
[2025-06-01] MEDS ORDERED: ONDANSETRON 4 MG/2 ML VIAL ONE (19:54)
[2025-06-01] MEDS ORDERED: KETOROLAC 30 MG/ML INJ ONE (19:54)
[2025-06-01 20:19] LABS: Sqamous Epithelial <5 /HPF (None Seen); Urine Culture Reflex Order NOT NEEDED; Urine Microscopic Reflex YN ORDER UMIC
[2025-06-01 20:19] LABS: Absolute Lymphocytes (CBC) 1.6 K/uL (0.7-4.9); Hematocrit 37.6 % (36.0-45.0); Hemoglobin 12.4 g/dL (12.0-15.0); MCH 26.9 pg (27.0-35.0); MCHC 33.0 g/dL (32.0-36.0); MCV 81.5 fL (80-100); MPV 7.7 fL (7.6-11.3); Nucleated RBC Absolute Count 0.0 (0-0); Nucleated Red Blood Cells % 0.1 % (0-0); RBC Red Blood Cell Count 4.61 M/uL (3.86-4.86); White Blood Count 6.10 thou/uL (4.3-10.9)
[2025-06-01 20:34] LABS: ALT/SGPT 39.0 U/L (13-56); AST/SGOT 22.0 U/L (15-37); Albumin 3.3 g/dL (3.4-5.0); Albumin/Globulin Ratio 0.9 (1.1-1.8); Alkaline Phosphatase 87.0 U/L (45-117); Anion Gap 9.4 mEq/L (5.0-15.0); BUN Blood Urea Nitrogen 8.0 mg/dL (7-18); Globulin 3.5 g/dL (2.3-3.5); Glucose Level 100.0 mg/dL (74-106); Lipase 63.0 U/L (13-75); Potassium 3.4 mEq/L (3.5-5.1)
[2025-06-01 20:36] LABS: Influenza A Ag Negative; Influenza B Ag Negative; SARS-CoV-2 Antigen Rapid Res Negative (Negative)
[2025-06-01] MEDS ORDERED: CEFTRIAXONE 1000 MG/VIAL ONE (21:30)
[2025-06-01] MEDS ORDERED: AZITHROMYCIN 250 MG TAB ONE (21:30)
[2025-06-01] MEDS ORDERED: NA CHLORIDE 0.9% 50 ML ONE (21:31)
[2025-06-01] MEDS ORDERED: BENZONATATE 100 MG CAP PO ONE (21:31)
--- NOTE | 2025-06-01 21:43 | RAD REPORT ---
EXAMINATION: ONE VIEW CHEST XR CLINICAL INDICATION: Female, 34 years old.,COUGH TECHNIQUE: Frontal chest projection is submitted. Examination is limited by patient positioning and t echnique. COMPARISON: No prior exam. FINDINGS: The lungs are well inflated and clear. No pneumothorax or sizable effusion. The heart is normal in s ize. Mediastinal contours are unremarkable. IMPRESSION: No acute intrathoracic abnormalities.
--- NOTE | 2025-06-01 22:34 | EDPHYS ---
Physician Documentation [facility] Name: Carlyn Rodas Age: 34 yrs Sex: Female : 1990 Arrival Date: 06/01/2025 Time: 19:17 Bed 20 Private MD: ED Physician Schuyler Barajas HPI: 06/01 22:00 This 34 yrs old Female presents to ER via Ambulatory with complaints of Sore cp Throat, Headache, Dizziness. 22:00 The patient presents with sore throat. The patient describes throat pain as scratchy. cp 22:00 Associated signs and symptoms: Pertinent positives: cough, nausea, vomiting, Pertinent cp negatives fever, active vomiting. 22:00 Patient reports exposure to Syphilis. cp COPYIST: 19:36 unknown zm Historical: - Allergies: 19:36 No Known Allergies; zm - Home Meds: 19:36 None [Active]; zm - PMHx: 19:36 adhd; Asthma; zm - PSHx: 19:36 None; zm - Immunization history:: Adult Immunizations up to date. - Infectious Disease History:: Denies. - Social history:: Smoking status: Patient denies any tobacco usage or history of. Patient/guardian denies using alcohol, street drugs. ROS: 22:05 Constitutional: Positive for body aches, fatigue, Negative for fever, poor PO intake, cp 22:05 Eyes: Negative for injury, pain, redness, and discharge, cp 22:05 ENT: Positive for sore throat, Negative for drainage from ear(s), ear pain, difficulty swallowing, difficulty handling secretions, 22:05 Cardiovascular: Negative for chest pain, 22:05 Respiratory: Positive for cough, 22:05 Abdomen/GI: Positive for abdominal pain, nausea and vomiting, Negative for diarrhea, constipation, 22:05 : Negative for urinary symptoms, vaginal bleeding, vaginal discharge, 22:05 Skin: Negative for rash, 22:05 Neuro: Negative for altered mental status, 22:05 All other systems are negative, Exam: 22:10 Constitutional: The patient appears in no acute distress, alert, awake, cp non-diaphoretic, non-toxic, well developed, well nourished, uncomfortable, 22:10 Head/Face: Normocephalic, atraumatic. cp 22:10 Eyes: Periorbital structures: appear normal, Pupils: equal, round, and reactive to light and accomodation, Extraocular movements: intact throughout, Conjunctiva: normal, no exudate, no injection, Sclera: no appreciated abnormality, Lids and lashes: appear normal, bilaterally, 22:10 ENT: External ear(s): are unremarkable, Ear canal(s): are normal, clear, TM's: dullness, bilaterally, Nose: is normal, Mouth: Lips: moist, Oral mucosa: moist, Posterior pharynx: Airway: no evidence of obstruction, patent, Tonsils: no enlargement, no exudate, Uvula: midline, erythema, that is mild, 22:10 Neck: ROM/movement: Meningeal signs: are not present, nuchal rigidity, is not appreciated, 22:10 Chest/axilla: Inspection: normal, 22:10 Cardiovascular: Rate: normal, 22:10 Respiratory: the patient does not display signs of respiratory distress, Respirations: normal, no use of accessory muscles, no retractions, labored breathing, is not present, Breath sounds: bronchial sounds, that are mild, are heard diffusely, + upper airway congestion. 22:10 Abdomen/GI: Inspection: abdomen appears normal, Palpation: abdomen is soft and non-tender, in all quadrants, 22:10 Back: CVA tenderness, is absent, 22:10 Neuro: Orientation: to person, place \T\ time. Mentation: is normal, Motor: moves all fours, Vital Signs: 19:32 BP 119 / 80; Pulse 96; Resp 17; Temp 98.4; Pulse Ox 98% on R/A; Weight 88.45 kg; Height zm 4 ft. 11 in. ; Pain 6/10; 21:16 BP 128 / 68; Pulse 88; Resp 16; Temp 98.2; Pulse Ox 98% on R/A; zm 22:28 BP 132 / 89; Pulse 78; Resp 16; Temp 98.3; Pulse Ox 100% on R/A; Pain 4/10; zm 19:32 Body Mass Index 39.38 (88.45 kg, 149.86 cm) zm 19:32 Pain Scale: Adult zm 22:28 Pain Scale: Adult zm Cathi Coma Score: 21:16 Eye Response: spontaneous(4). Motor Response: obeys commands(6). Verbal Response: zm oriented(5). Total: 15. 22:28 Eye Response: spontaneous(4). Motor Response: obeys commands(6). Verbal Response: zm oriented(5). Total: 15. MDM: 19:20 Medical Screening Exam initiated kb 20:22 Medical Screening Exam initiated kathy 22:33 Data reviewed: vital signs, nurses notes, lab test result(s), radiologic studies, plain cp films, and as a result, I will discharge patient. 22:33 Differential diagnosis: apthous stomatitis, group A strep tonsillitis, mononucleosis, cp retropharyngeal abcess. I considered the following discharge prescriptions or medication management in the emergency department Medications were administered in the Emergency Department. See MAR. Independent interpretation of the following test(s) in the Emergency Department X-Ray: My interpretation is chest image negative for focal pneumonia. Test considered but Not performed: CT: abdomen/pelvis. Counseling: I had a detailed discussion with the patient and/or guardian regarding the historical points, exam findings, and any diagnostic results supporting the discharge/admit diagnosis, lab results, radiology results, the need for outpatient follow up, a family practitioner, to return to the emergency department if symptoms worsen or persist or if there are any questions or concerns that arise at home. Response to treatment: the patient's symptoms have mildly improved after treatment. 06/01 19:22 Order name: UA Rfx Josué Cult if indicated; Complete Time: 21:00 cp 06/01 21:00 Interpretation: Normal except: [facility] Turbid; UKET 1+; UESTR 75. cp 06/01 19:22 Order name: Test, Urine; Complete Time: 21:00 cp 06/01 19:49 Order name: COVID-19 Ag + Flu A+B Ag; Complete Time: 21:00 cp 06/01 19:49 Order name: CBC with Diff; Complete Time: 21:00 cp 06/01 19:49 Order name: CMP; Complete Time: 21:00 cp 06/01 19:49 Order name: Lipase; Complete Time: 21:00 cp 06/01 19:49 Order name: [place] Screen Profile; Complete Time: 21:00 cp 06/01 21:06 Order name: Rpr cp 06/01 19:49 Order name: XRAY Chest (1 view); Complete Time: 22:27 cp 06/01 22:27 Interpretation: Report review. cp 06/01 19:49 Order name: IV Saline Lock; Complete Time: 20:10 cp 06/01 19:49 Order name: Labs collected and sent; Complete Time: 20:10 cp Administered Medications: 20:09 Drug: Ondansetron IVP 4 mg IVP once; over 2 minutes Route: IVP; Site: right wrist; zm 22:44 Follow up: Response: No adverse reaction zm 20:09 Drug: NS 0.9% IV 1000 ml IV at 1 bolus Per protocol; to be given as a bolus over 60 zm minutes Route: IV; Rate: 1 bolus; Site: right wrist; 22:44 Follow up: Response: No adverse reaction; IV Status: Completed infusion; IV Intake: zm 1000ml 20:42 Drug: TORadol - Ketorolac IVP 15 mg IVP once Route: IVP; Site: right wrist; zm 22:45 Follow up: Response: No adverse reaction; Pain is decreased zm 21:43 Drug: Rocephin IV 1 grams IV at calculated rate once; Given slow IV push per pharmacy zm instructions Route: IV; Rate: calculated rate; Site: right wrist; 22:44 Follow up: Response: No adverse reaction; IV Status: Completed infusion; IV Intake: 50mlzm 21:43 Drug: AZITHromycin PO 1 grams PO once Route: PO; zm 22:44 Follow up: Response: No adverse reaction zm 21:43 Drug: Tessalon Perle PO 200 mg PO once Route: PO; zm 22:44 Follow up: Response: No adverse reaction zm Disposition Summary: 06/01/25 22:33 Discharge Ordered Notes: Location: Home cp Problem: new cp Symptoms: have improved cp Condition: Stable cp Diagnosis - Acute pharyngitis, unspecified cp - Cough cp - Headache cp - Nausea with vomiting, unspecified cp - Encounter for screening for infections with a predominantly sexual mode of cp transmission Followup: cp - With: Private Physician - When: 2 - 3 days - Reason: Worsening of condition Discharge Instructions: - Discharge Summary Sheet cp - General Headache Without Cause cp - Nausea and Vomiting, Adult cp - Pharyngitis cp - Sore Throat cp - Health Maintenance, Female cp - Cough, Adult cp - Preventing Sexually Transmitted Infections, Adult cp Forms: - Medication Reconciliation Form cp - Antibiotic Education cp - Prescription Opioid Use cp - Patient Portal Instructions cp - Leadership Thank You Letter cp Prescriptions: - Bromfed DM 2-30-10 mg/5 mL Oral syrup - administer 10 milliliter ORAL route every 8 hours as needed for cold symptoms; cp 240 milliliter; Refills: 0, Product Selection Permitted - Amoxicillin 875 mg Oral Tablet - take 1 tablet ORAL route every 12 hours for 10 days; 20 tablet; Refills: 0, cp Product Selection Permitted - Zofran 4 mg Oral Tablet - take 1 tablet ORAL route every 12 hours As needed; 20 tablet; Refills: 0, cp Product Selection Permitted Addendum: 06/03/2025 07:01 Co-signature as Attending Physician, Parker SQUIRES I reviewed the patient's care r n provided by the Advanced Practice Provider and agree with the diagnosis and treatment plan. Signatures: Dispatcher [employer] EDStacia Howell, TG-Felix MAS-Schuyler Gaytan MD MD cha Nieto, Roman, MD MD rn Page, Corey, PA-C PA-C cp Martinez, Zaina, RN RN zm Corrections: (The following items were deleted from the chart) 06/01 19:23 19:23 UA Rfx Josué Cult if indicated+U.LAB.BRZ ordered. EDUT EDMS 19:23 19:23 Test, Urine+UC.LAB.BRZ ordered. EDUT EDMS 21:07 21:07 RPR+I.LAB.BRZ ordered. EDUT EDUT 06/02 22:42 06/01 22:00 Onset: The symptoms/episode began/occurred 1 month(s) ago, cp cp
--- NOTE | 2025-06-01 22:34 | ER ---
Nurse's Notes [facility] Name: Carlyn Rodas Age: 34 yrs Sex: Female : 1990 Arrival Date: 06/01/2025 Time: 19:17 Bed 20 Private MD: Diagnosis: Acute pharyngitis, unspecified;Cough;Headache;Nausea with vomiting, unspecified;Encounter for screening for infections with a predominantly sexual mode of transmission Presentation: 06/01 19:32 Chief complaint: Patient states: "I have had syphilis for a month and I went to a clinic but they haven't given me anything for it". Coronavirus screen: Vaccine status: Patient reports receiving the 2nd dose of the covid vaccine. Client denies travel out of the [place] in the last 14 days. Ebola Screen: Patient denies travel to an Ebola-affected area in the 21 days before illness onset. No symptoms or risks identified at this time. Initial Sepsis Screen: Does the patient meet any 2 criteria? No. Patient's initial sepsis screen is negative. Does the patient have a suspected source of infection? No. Patient's initial sepsis screen is negative. Risk Assessment: Do you want to hurt yourself or someone else? Patient reports no desire to harm self or others. Onset of symptoms is unknown. 19:32 Method Of Arrival: Ambulatory 19:32 Acuity: FERNANDO 3 Triage Assessment: 19:36 General: Appears in no apparent distress. comfortable, Behavior is calm, cooperative. zm Pain: Complains of pain in throat Pain currently is 6 out of 10 on a pain scale. EENT: Throat is clear Denies blurred vision. Neuro: No deficits noted. Level of Consciousness is awake, alert, obeys commands, Oriented to person, place, time, situation. Cardiovascular: No deficits noted. Capillary refill < 3 seconds in bilateral fingers Patient's skin is warm and dry. Respiratory: No deficits noted. Airway is patent Respiratory effort is even, unlabored, Respiratory pattern is regular, symmetrical. GI: No deficits noted. No signs and/or symptoms were reported involving the gastrointestinal system. : No deficits noted. No signs and/or symptoms were reported regarding the genitourinary system. Derm: No deficits noted. No signs and/or symptoms reported regarding the dermatologic system. Skin is intact, is healthy with good turgor, Skin is pink, warm \\T\\ dry. Musculoskeletal: No deficits noted. No signs and/or symptoms reported regarding the musculoskeletal system. Circulation, motion, and sensation intact. Range of motion: intact in all extremities. 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 - Infectious Disease History:: Denies. - Social history:: Smoking status: Patient denies any tobacco usage or history of. Patient/guardian denies using alcohol, street drugs. Screenin:42 [facility] ED Fall Risk Assessment (Adult) History of falling in the last 3 months, zm including since admission No falls in past 3 months (0 pts) Confusion or Disorientation No (0 pts) Intoxicated or Sedated No (0 pts) Impaired Gait No (0 pts) Mobility Assist Device Used No (0 pt) Altered Elimination No (0 pt) Score/Fall Risk Level 0 - 2 = Low Risk Oriented to surroundings, Maintained a safe environment, Educated pt \\T\\ family on fall prevention, incl call for assistance when getting out of bed, Assessed \\T\\ reinforced patient's understanding of fall precautions, Hourly rounding (assess needs \\T\\ fall precautionary measures) done, Used ambulatory aids as needed (educated on \\T\\ assisted with), Used gait belt as appropriate. Abuse screen: Denies threats or abuse. Denies injuries from another. Nutritional screening: No deficits noted. Tuberculosis screening: No symptoms or risk factors identified. Assessment: 19:42 Reassessment: see triage assessment. Respiratory: Airway is patent Respiratory effort zm is even, unlabored, Respiratory pattern is regular, symmetrical, Breath sounds are clear bilaterally. 21:15 Reassessment: Patient appears in no apparent distress at this time. No changes from zm previously documented assessment. Patient and/or family updated on plan of care and expected duration. Pain level reassessed. Patient is alert, oriented x 3, equal unlabored respirations, skin warm/dry/pink. 22:28 Reassessment: Patient appears in no apparent distress at this time. No changes from zm previously documented assessment. Patient and/or family updated on plan of care and expected duration. Pain level reassessed. Patient is alert, oriented x 3, equal unlabored respirations, skin warm/dry/pink. Patient states feeling better. Patient states symptoms have improved. Vital Signs: 19:32 BP 119 / 80; Pulse 96; Resp 17; Temp 98.4; Pulse Ox 98% on R/A; Weight 88.45 kg; Height zm 4 ft. 11 in. ; Pain 6/10; 21:16 BP 128 / 68; Pulse 88; Resp 16; Temp 98.2; Pulse Ox 98% on R/A; zm 22:28 BP 132 / 89; Pulse 78; Resp 16; Temp 98.3; Pulse Ox 100% on R/A; Pain 4/10; zm 19:32 Body Mass Index 39.38 (88.45 kg, 149.86 cm) zm 19:32 Pain Scale: Adult zm 22:28 Pain Scale: Adult zm Cathi Coma Score: 21:16 Eye Response: spontaneous(4). Motor Response: obeys commands(6). Verbal Response: zm oriented(5). Total: 15. 22:28 Eye Response: spontaneous(4). Motor Response: obeys commands(6). Verbal Response: zm oriented(5). Total: 15. ED Course: 19:20 Patient arrived in ED. mr 19:20 Harpal StaciaMADY [facility]isholm [facility]. kb 19:20 Parker Albrecht MD is Attending Physician. kb 19:22 Schuyler Torres PA-C is [facility]. cp 19:22 Parker Albrecht MD is Attending Physician. cp 19:23 Guillermina Bell, HERMILO is Primary Nurse. zm 19:28 Attending Physician role handed off by Parker Albrecht MD [facility] 19:28 Schuyler Barajas MD is Attending Physician. [facility] 19:35 Triage completed. zm 19:36 Arm band placed on right wrist. zm 19:42 Patient has correct armband on for positive identification. Bed in low position. Call zm light in reach. Side rails up X 1. Client placed on continuous cardiac and pulse oximetry monitoring. NIBP monitoring applied. Pulse ox on. NIBP on. Door closed. Noise minimized. Warm blanket given. 20:05 Inserted saline lock: 20 gauge in right wrist, using aseptic technique. Blood zm collected. Flushed with 10 mL NS. 20:05 Initial lab(s) drawn, by me, sent to lab. zm 20:10 [place] Screen Profile Sent. zm 20:10 CBC with Diff Sent. zm 20:10 CMP Sent. zm 20:10 Lipase Sent. zm 20:10 Test, Urine Sent. zm 20:10 UA Rfx Josué Cult if indicated Sent. zm 20:10 COVID swab sent to lab. Flu and/or RSV swab sent to lab. zm 20:12 Provided Education on: call light use. zm 20:47 XRAY Chest (1 view) In Process Unspecified. EDMS 21:18 Rpr Sent. zm 22:28 No provider procedures requiring assistance completed. IV discontinued, intact, zm bleeding controlled, No redness/swelling at site. Pressure dressing applied. Administered Medications: 20:09 Drug: Ondansetron IVP 4 mg IVP once; over 2 minutes Route: IVP; Site: right wrist; zm 22:44 Follow up: Response: No adverse reaction zm 20:09 Drug: NS 0.9% IV 1000 ml IV at 1 bolus Per protocol; to be given as a bolus over 60 zm minutes Route: IV; Rate: 1 bolus; Site: right wrist; 22:44 Follow up: Response: No adverse reaction; IV Status: Completed infusion; IV Intake: zm 1000ml 20:42 Drug: TORadol - Ketorolac IVP 15 mg IVP once Route: IVP; Site: right wrist; zm 22:45 Follow up: Response: No adverse reaction; Pain is decreased zm 21:43 Drug: Rocephin IV 1 grams IV at calculated rate once; Given slow IV push per pharmacy instructions Route: IV; Rate: calculated rate; Site: right wrist; 22:44 Follow up: Response: No adverse reaction; IV Status: Completed infusion; IV Intake: 50mlzm 21:43 Drug: AZITHromycin PO 1 grams PO once Route: PO; zm 22:44 Follow up: Response: No adverse reaction zm 21:43 Drug: Tessalon Perle PO 200 mg PO once Route: PO; zm 22:44 Follow up: Response: No adverse reaction zm Medication: 20:12 VIS not applicable for this client. zm Intake: 22:44 IV: 50ml; Total: 50ml. zm 22:44 IV: 1000ml; Total: 1050ml. zm Outcome: 22:33 Discharge ordered by MD. lopez 22:46 Discharged to home ambulatory, 22:46 Condition: stable 22:46 Discharge instructions given to patient, Instructed on discharge instructions, follow up and referral plans. no drinking with medication, medication usage, safe sex practices, safety practices, Demonstrated understanding of instructions, follow-up care, medications, Prescriptions given X 3, 22:49 Patient left the ED. zm Signatures: Dispatcher [employer] EDMS Stacia Rowan, UNIV[employer]AL BRANCH CONSULTANT-C UNIVERSAL BRANCH CONSULTANT-Schuyler Gaytan MD MD cha Rivera, Mary, Reg Reg mr Schuyler Torres, PA-C PA-C Guillermina Carson, RN RN Corrections: (The following items were deleted from the chart) 19:52 19:32 Acuity: FERNANDO 4 zm 22:46 22:28 BP 132 / 89; Pulse 78bpm; Resp 16bpm; Pulse Ox 100% RA; Temp 98.3F; zm zm
[2025-06-01 23:14] VITALS: BP 132/89; TEMP 98.3; O2SAT 100
== END 2025-06-01 22:49 | disposition home or self-care (01) ==
LOC: ER 19:17
DX: J02.9 Acute pharyngitis, unspecified (principal); R05.9 Cough, unspecified; R51.9 Headache, unspecified; R11.2 Nausea with vomiting, unspecified; Z11.3 Encounter for screening for infections with a predominantly sexual mode of transmission; Z11.52 Encounter for screening for COVID-19
CPT/HCPCS: 96365; 96361; 85025; 81001; 36415; 86308; 81025; 83690; 80053; 71045; 96375; 99284; 87428; J1885; J2405; J7030; J0696